=== PATIENT | female | born 1980 | race Caucasian/White ===

== ENCOUNTER 2016-08-02 12:32 | Outpatient (CLI) | payer OTHER | END 2016-08-02 12:33 | disposition home or self-care (01) | DX: E04.1 Nontoxic single thyroid nodule (principal) ==

== ENCOUNTER 2016-08-29 08:15 | Outpatient (CLI) | payer OTHER ==
[2016-08-29] MEDS ORDERED: BUFFERED LIDOCAINE 10 ML SYRINGE IU ONE (10:30)
== END 2016-08-29 08:16 | disposition home or self-care (01) ==
DX: E04.1 Nontoxic single thyroid nodule (principal)

== ENCOUNTER 2017-11-09 07:50 | Outpatient (CLI) | payer OTHER ==
--- NOTE | 2017-11-09 08:25 | XRAY Preliminary Report ---
Exam: XR FOOT 3 VIEW LT IMPRESSION: Normal foot radiography. [facility] SITE ID: [id number]
--- NOTE | 2017-11-09 08:26 | XRAY Report ---
EXAM: LEFT FOOT RADIOGRAPHY EXAM DATE: 11/09/2017 08:14 AM. CLINICAL HISTORY: LEFT FOOT PAIN. COMPARISON: None. TECHNIQUE: 3 views. FINDINGS: Bones: Normal. No fractures or bone lesions. Joints: Normal. No subluxations. Soft Tissues: Normal. No soft tissue swelling. IMPRESSION: Normal foot radiography. [facility] Referring Provider Line: [phone] SITE ID: [id number]
== END 2017-11-09 07:51 | disposition home or self-care (01) ==
LOC: DI 07:50
PROVIDERS: ATTEND Specialist
DX: M79.672 Pain in left foot (principal)

== ENCOUNTER 2017-12-07 08:30 | Outpatient (CLI) | payer OTHER ==
[2017-12-07 08:48] LABS: BASOPHILS # (AUTO) 0.1 10^3/uL (0.0-0.1); BASOPHILS % (AUTO) 0.8 %; EOSINOPHILS # (AUTO) 0.8 10^3/uL (0.0-0.7); EOSINOPHILS % (AUTO) 10.1 %; HGB - HEMOGLOBIN 13.8 g/dL (12.0-16.0); LYMPHOCYTES # (AUTO) 2.8 10^3/uL (1.5-3.5); LYMPHOCYTES % (AUTO) 36.1 %; MEAN CORPUSCULAR HEMOGLOBIN 29.4 pg (27.0-31.0); MEAN CORPUSCULAR HGB CONC 33.9 g/dL (32.0-36.0); MEAN CORPUSCULAR VOLUME 86.8 fL (81.0-99.0); MEAN PLATELET VOLUME 8.1 fL (7.9-10.8); MONOCYTES # (AUTO) 0.4 10^3/uL (0.0-1.0); MONOCYTES % (AUTO) 5.6 %; NEUTROPHILS # (AUTO) 3.7 10^3/uL (1.5-6.6); NEUTROPHILS % (AUTO) 47.4 %; PLT - PLATELET COUNT 260 10^3/uL (130-450); RED BLOOD COUNT 4.68 10^6/uL (4.20-5.40); RED CELL DISTRIBUTION WIDTH 13.6 % (12.0-15.0); WHITE BLOOD COUNT 7.8 x10^3/uL (4.8-10.8)
[2017-12-07 09:06] LABS: ALBUMIN 3.4 g/dL (3.2-5.5); ALBUMIN/GLOBULIN RATIO 0.9 (1.0-2.2); ALKALINE PHOSPHATASE 69 IU/L (42-121); ALT ALANINE AMINOTRANSFERASE 32 IU/L (10-60); AST ASPARTATE AMINOTRANSFERASE 28 IU/L (10-42); BILIRUBIN,TOTAL 0.9 mg/dL (0.2-1.0); BUN - BLOOD UREA NITROGEN 10 mg/dL (6-20); CALCIUM 8.5 mg/dL (8.5-10.3); CARBON DIOXIDE - CO2 25 mmol/L (21-32); CHLORIDE 106 mmol/L (101-111); CREATININE 0.7 mg/dL (0.4-1.0); GFR - MDRD 93 (>89); GLUCOSE 98 mg/dL (70-100); SODIUM 137 mmol/L (135-145); TOTAL PROTEIN 7.1 g/dL (6.7-8.2)
[2017-12-07 09:08] LABS: CRP - C-REACTIVE PROTEIN < 1.0 mg/dL (0-1.0)
[2017-12-07 09:22] LABS: RHEUMATOID FACTOR NEGATIVE (Negative)
[2017-12-10 13:21] LABS: ANA SCREEN NEGATIVE (NEGATIVE)
== END 2017-12-07 08:31 | disposition home or self-care (01) ==
LOC: LAB 08:30
PROVIDERS: ATTEND Specialist
DX: L94.9 Localized connective tissue disorder, unspecified (principal)
CPT/HCPCS: 36415; 80053; 85025; 85651; 86038; 86140; 86430

== ENCOUNTER 2018-07-23 20:36 | Outpatient (CLI) | payer OTHER ==
--- NOTE | 2018-07-24 00:13 | Ultrasound Report ---
Reason: CERVICALGIA Procedure Date: 07/23/2018 Accession Number: [id number] / [id number] Procedure: US - Head or Neck Soft Tissue CPT Code: FULL RESULT: EXAM: THYROID ULTRASOUND EXAM DATE: 07/23/2018 09:36 PM. CLINICAL HISTORY: CERVICALGIA. COMPARISON: HEAD OR NECK SOFT TISSUE 08/02/2016 12:39 PM. TECHNIQUE: Real time sonographic imaging of the thyroid was performed by the marketing production manager. Multiple packaging sales representative static images were saved for review. FINDINGS: THYROID GLAND: Right Lobe: Surgically absent. Left Lobe: 5.5 x 1.6 x 1.4 cm, volume 6 cc. Normal background echotexture. Left Lobe Nodules: 1.3 x 1.2 x 0.6 cm circumscribed heterogeneous nodule with mild internal vascularity in the lower pole posteriorly. Similar appearing 0.6 x 0.4 x 0.6 cm nodule in the midpole posteriorly. Isthmus: Surgically absent. LYMPH NODES: No adenopathy demonstrated in the central or lateral compartment. OTHER: None. IMPRESSION: 2 small left thyroid nodules, below size criteria for FNA based on guidelines. Postoperative changes of right thyroidectomy. Management recommendations are based on 2015 [place] [employer] Management Guidelines for Adult Patients with Thyroid Nodules and Differentiated Thyroid Cancer. [facility]
== END 2018-07-23 20:37 | disposition home or self-care (01) ==
LOC: DI 20:36
PROVIDERS: ATTEND Student in an Organized Health Care Education/Training Program
DX: M54.2 Cervicalgia (principal); E04.2 Nontoxic multinodular goiter
CPT/HCPCS: 76536

== ENCOUNTER 2018-08-25 07:31 | Emergency (ER) | payer OTHER ==
--- NOTE | 2018-08-25 08:02 | ED Physician Documentation ---
History of Present Illness - Stated complaint Stated Complaint: SORE THROAT/COUGH/EAR PX - Chief complaint Chief Complaint: General - History obtained from History obtained from: Patient - History of Present Illness Pain level max: 2 - Additonal information Additional information: Patient is a previously healthy 37-year-old female presenting with her daughter, who has similar complaints of general viral and URI symptoms for the past 1 week. Patient denies fever, chills, rash, abdominal pain, vomiting, urinary changes, but admits to diarrhea. Patient also complains of nasal congestion, rhinorrhea, but no sinus pain or ear pain.Patient reports mildly productive cough, but no particular shortness of breath. Patient notes no particular improving or worsening factors to her symptoms. Review of Systems Constitutional: denies: Fever, Chills Ears: denies: Reviewed and negative Nose: reports: Rhinorrhea / runny nose, Congestion Throat: reports: Sore throat Respiratory: reports: Cough GI: reports: Diarrhea. 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 Psych: Depression, Bipolar disorder, ADD/ADHD - Past Surgical History Past Surgical History: Yes HEENT: Myringotomy (tubes), Tonsil/Adenoidectomy Derm: Other - Present Medications Home Medications: Ambulatory Orders Medication Instructions Recorded Confirmed Hydrocodone/Acetaminophen 1 - 2 each PO Q6H PRN #14 tablet 03/24/15 [Hydrocodon-Acetaminophen 5-325] RX: Naproxen [Naprosyn] 500 mg PO BID 03/24/15 03/24/15 - Allergies Allergies/Adverse Reactions: Allergies Allergy/AdvReac Type Severity Reaction Status Date / Time amoxicillin AdvReac Intermediate diarrhea Verified 09/21/14 21:23 - Social History Does the pt smoke?: No Smoking Status: Never smoker Does the pt drink ETOH?: Yes Does the pt have substance abuse?: No - Immunizations Immunizations are current?: Yes - POLST Patient has POLST: No PD ED PE NORMAL - General General: Alert and oriented X 3, No acute distress, Well developed/nourished - HEENT HEENT: Atraumatic, EOMI, Ears normal (TMs nonbulging, not erythematous bilaterally), Moist mucous membranes, Pharynx benign - Neck Neck: Supple, no meningeal sign - Cardiac Cardiac: RRR, No murmur - Respiratory Respiratory: No respiratory distress, Clear bilaterally - Abdomen Abdomen: Soft, Non tender, Non distended - Derm Derm: Normal color, Warm and dry, No rash - Extremities Extremities: No deformity - Neuro Neuro: Alert and oriented X 3, No motor deficit, No sensory deficit - Psych Psych: Normal mood, Normal affect Results - Vitals Vitals: Vital Signs - 24 hr 08/25/18 07:40 Temperature 37.2 C Heart Rate 80 Respiratory 16 Rate Blood Pressure 108/61 O2 Saturation 99 Oxygen O2 Source Room air PD MEDICAL DECISION MAKING - ED course Complexity details: considered differential, d/w patient ED course: Patient presenting with likely viral syndrome, particular URI given duration of complaints, and physical exam findings. Vital signs within normal limits on arrival.Do not find evidence of otitis media, otitis externa, mastoiditis, pharyngitis, tonsillitis, peritonsillar abscess or have concerns for sinusitis or pneumonia based on exam. Also have low suspicion for other systemic illness including intra-abdominal pathology. Feel the patient is likely experiencing viral illness or even influenza, but given duration of symptoms, do not feel patient needs influenza testing as she is already out of the treatment window for Tamiflu. Explained this to the patient and she agrees. Also discussed other supportive cares for viral issues, return precautions, appropriate follow- up. Work note provided. Patient voiced understanding and is comfortable with discharge plan. Departure - Departure Disposition: 01 Home, Self Care Clinical Impression: Viral URI with cough Condition: Good Instructions: ED Viral Syndrome Follow-Up: RATNA BARBER [Primary Care Provider] - Within 3 Days Comments: Recommend supportive cares such as hydration, rest, ibuprofen/Tylenol and other [id number] medications like nasal decongestants to help relieve symptoms of likely viral syndrome. Follow-up with primary care physician in next 2-3 days and return to ED sooner if expands worsening symptoms or other concerns. Forms: Activity restrictions Discharge Date/Time: 08/25/18 08:11
[2018-08-25 08:06] VITALS: BP 108/61
== END 2018-08-25 08:11 | disposition home or self-care (01) ==
LOC: ED 07:31
DX: J06.9 Acute upper respiratory infection, unspecified (principal)
CPT/HCPCS: 99282; 99283

== ENCOUNTER 2018-11-05 07:07 | Outpatient (CLI) | payer OTHER ==
--- NOTE | 2018-11-05 17:25 | XRAY Report ---
Reason: R HIP PAIN Procedure Date: 11/05/2018 Accession Number: [id number] / [id number] Procedure: XR - Hip w/Pelvis 2-3V RT CPT Code: FULL RESULT: EXAM: RIGHT HIP RADIOGRAPHY EXAM DATE: 11/05/2018 07:18 AM. CLINICAL HISTORY: R HIP PAIN. COMPARISON: CT ABDOMEN AND PELVIS WITHOUT CONTRAST 02/02/2015 8:20 PM. TECHNIQUE: 2 views. FINDINGS: Bones: Normal. No fractures or bone lesion. Joints: Normal. No dislocation. The hip joint space is preserved. Soft Tissues: Normal. No soft tissue swelling. IMPRESSION: Normal hip radiography. [facility]
== END 2018-11-05 07:08 | disposition home or self-care (01) ==
LOC: DI 07:07
PROVIDERS: ATTEND Physician Assistant Medical
DX: M25.551 Pain in right hip (principal)

== ENCOUNTER 2019-01-28 22:44 | Emergency (ER) | payer OTHER ==
[2019-01-28 23:01] LABS: BASOPHILS # (AUTO) 0.1 10^3/uL (0.0-0.1); BASOPHILS % (AUTO) 0.4 %; EOSINOPHILS # (AUTO) 0.1 10^3/uL (0.0-0.7); EOSINOPHILS % (AUTO) 0.6 %; HGB - HEMOGLOBIN 13.8 g/dL (12.0-16.0); LYMPHOCYTES # (AUTO) 2.8 10^3/uL (1.5-3.5); LYMPHOCYTES % (AUTO) 17.8 %; MEAN CORPUSCULAR HEMOGLOBIN 29.4 pg (27.0-31.0); MEAN CORPUSCULAR HGB CONC 33.3 g/dL (32.0-36.0); MEAN CORPUSCULAR VOLUME 88.3 fL (81.0-99.0); MEAN PLATELET VOLUME 10.3 fL (7.9-10.8); MONOCYTES % (AUTO) 6.5 %; NEUTROPHILS # (AUTO) 11.7 10^3/uL (1.5-6.6); NEUTROPHILS % (AUTO) 74.2 %; PLT - PLATELET COUNT 311 10^3/uL (130-450); RED BLOOD COUNT 4.69 10^6/uL (4.20-5.40); RED CELL DISTRIBUTION WIDTH 13.4 % (12.0-15.0); WHITE BLOOD COUNT 15.7 x10^3/uL (4.8-10.8)
[2019-01-28 23:15] LABS: ALBUMIN 4.1 g/dL (3.2-5.5); ALBUMIN/GLOBULIN RATIO 1.2 (1.0-2.2); BILIRUBIN,TOTAL 1.2 mg/dL (0.2-1.0); CALCIUM 8.9 mg/dL (8.5-10.3); CREATININE 0.7 mg/dL (0.4-1.0); TOTAL PROTEIN 7.6 g/dL (6.7-8.2)
[2019-01-29] MEDS ORDERED: IOVERSOL 320 100 ML VIAL IVP ONE ×2 (00:14→06:30)
[2019-01-29] MEDS ORDERED: MORPHINE 2 MG/ML CARPUJECT IVP STA (00:20)
[2019-01-29] MEDS ORDERED: ONDANSETRON 4 MG/2 ML VIAL IVP STA (00:20)
--- NOTE | 2019-01-29 00:23 | ED Physician Documentation ---
History of Present Illness - Stated complaint Stated Complaint: ABD PX/N/V - Chief complaint Chief Complaint: Abd Pain - History obtained from History obtained from: Patient, Family - History of Present Illness Timing: Today, How many hours ago (2) Pain level max: 8 Pain level now: 7 - Additonal information Additional information: 38-year-old female states that she has a known history of gallstones. She states that she ate [employer] today. This was followed by epigastric and right upper quadrant pain. Has had nausea and vomiting. No fevers. No chills. Worse with movement and better with rest. Patient is not , breast- feeding or trying to become . 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 - Past Surgical History Past Surgical History: Yes HEENT: Myringotomy (tubes), Tonsil/Adenoidectomy Derm: Other - Present Medications Home Medications: Ambulatory Orders Medication Instructions Recorded Confirmed Hydrocodone/Acetaminophen 1 - 2 each PO Q6H PRN #14 tablet 03/24/15 [Hydrocodon-Acetaminophen 5-325] Naproxen [Naprosyn] 500 mg PO BID 03/24/15 03/24/15 Hydrocodone/Acetaminophen 1 - 2 each PO Q6H PRN #14 tablet 01/29/19 [Hydrocodon-Acetaminophen 5-325] Ibuprofen [Motrin] 800 mg PO Q8H PRN #30 tablet 01/29/19 Ondansetron Odt [Zofran] 4 mg TL Q6H PRN #10 tablet 01/29/19 - Allergies Allergies/Adverse Reactions: Allergies Allergy/AdvReac Type Severity Reaction Status Date / Time amoxicillin AdvReac Intermediate diarrhea Verified 01/28/19 22:50 - Social History Does the pt smoke?: No Smoking Status: Never smoker Does the pt drink ETOH?: Yes Does the pt have substance abuse?: No - Immunizations Immunizations are current?: Yes - POLST Patient has POLST: No PD ED PE NORMAL - Vitals Vital signs reviewed: Yes - General General: Alert and oriented X 3, No acute distress - HEENT HEENT: Moist mucous membranes - Neck Neck: Supple, no meningeal sign - Cardiac Cardiac: RRR, Strong equal pulses - Respiratory Respiratory: No respiratory distress, Clear bilaterally - Abdomen Abdomen: Soft, Other (Tender palpation right lower quadrant at McBurney's point. Also tender to palpation right upper quadrant. Positive Del Angel sign.) - Back Back: No CVA TTP - Derm Derm: Warm and dry - Neuro Neuro: Alert and oriented X 3 - Psych Psych: Normal mood, Normal affect Results - Vitals Vitals: Vital Signs - 24 hr 01/28/19 01/29/19 01/29/19 22:48 01:53 02:20 Temperature 36.0 C L 36.6 C Heart Rate 95 68 64 Respiratory 17 18 20 Rate Blood Pressure 115/72 97/66 108/50 L O2 Saturation 95 98 99 01/29/19 03:20 Temperature 36.6 C Heart Rate 85 Respiratory 18 Rate Blood Pressure 95/55 L O2 Saturation 99 Oxygen O2 Source Room air - Labs Labs: Laboratory Tests 01/28/19 01/28/19 01/29/19 22:57 22:57 02:40 WBC 15.7 H RBC 4.69 Hgb 13.8 Hct 41.4 MCV 88.3 MCH 29.4 MCHC 33.3 RDW 13.4 Plt Count 311 MPV 10.3 Neut # (Auto) 11.7 H Lymph # (Auto) 2.8 [place] # (Auto) 1.0 Eos # (Auto) 0.1 Baso # (Auto) 0.1 Absolute Nucleated RBC 0.00 Nucleated RBC % 0.0 Sodium 140 Potassium 3.4 L Chloride 102 Carbon Dioxide 26 Anion Gap 12.0 BUN 11 Creatinine 0.7 Estimated GFR (MDRD) 93 Glucose 118 H Calcium 8.9 Total Bilirubin 1.2 H AST 21 ALT 19 Alkaline Phosphatase 66 Total Protein 7.6 Albumin 4.1 Globulin 3.5 Albumin/Globulin Ratio 1.2 Lipase 25 Urine Color YELLOW Urine Clarity CLEAR Urine pH 7.0 Ur Specific [place] <=1.005 Urine Protein NEGATIVE Urine Glucose (UA) NEGATIVE Urine Ketones NEGATIVE Urine Occult Blood TRACE-INTA Urine Nitrite NEGATIVE Urine Bilirubin NEGATIVE Urine Urobilinogen 0.2 (NORMAL) Ur Leukocyte Esterase NEGATIVE Ur Microscopic Review NOT INDICATED Urine Culture Comments NOT INDICATED Urine HCG, Qual NEGATIVE - Rads (name of study) RUQ US Radiology: Prelim report reviewed, EMP read contemporaneously, See rad report (Cholelithiasis with no definite cholecystitis. No biliary dilatation seen. ) CT abd/pelvis Radiology: Prelim report reviewed, EMP read contemporaneously, See rad report (1. No acute inflammatory or obstructive process seen in the abdomen or pelvis. 2. Cholelithiasis. ) PD MEDICAL DECISION MAKING - ED course Complexity details: reviewed results, re-evaluated patient, considered different ial, d/w patient, d/w family ED course: Patient with abdominal pain of unclear etiology. Abdominal pain well controlled. Normal appendix. No cholecystitis. Nontender in the right upper quadrant on serial exam. No peritoneal signs. Will trial on pain medication and see how she progresses. She will return if she worsens. Patient counseled regarding signs and symptoms for which I believe and urgent re-evaluation would be necessary. Patient with good understanding of and agreement to plan and is comfortable going home at this time This document was made in part using voice recognition software. While efforts are made to proofread this document, sound alike and grammatical errors may occur. Departure - Departure Disposition: 01 Home, Self Care Clinical Impression: Abdominal pain Qualifiers: Abdominal location: unspecified location Qualified Code(s): R10.9 - Unspecified abdominal pain Condition: Good Instructions: ED Abdominal Pain Unkn Cause Follow-Up: Rosa Coronado PA-C [Primary Care Provider] - Within 3 Days Prescriptions: Hydrocodone/Acetaminophen [Hydrocodon-Acetaminophen 5-325] 1 - 2 each PO Q6H PRN #14 tablet PRN Reason: pain Ibuprofen [Motrin] 800 mg PO Q8H PRN #30 tablet PRN Reason: PAIN &/OR FEVER Ondansetron Odt [Zofran] 4 mg TL Q6H PRN #10 tablet PRN Reason: Nausea / Vomiting Comments: The cause of your symptoms is unclear. Your gallbladder is not infected. You do have gallstones. Your appendix appears normal. You may have passed a kidney stone. Use the medications as prescribed. Return if you worsen, especially for uncontrolled pain or fevers. Do not drink alcohol or drive while on narcotic pain medicine. Note that many narcotic pain relievers also contain tylenol/acetaminophen. Please ensure that your total dose of acetaminophen from all sources does not exceed 3 grams (3000mg) per day. You may constipated on this medication, take a stool softener such as "Colace" twice a day while you are on it. Also recommend a [id number]-hvk-zxkjgtu laxative such as senna or MiraLAX any day that you do not have a bowel movement. If you received narcotic pain medication in the emergency department, do not drive or operate machinery for the next 24 hours. Discharge Date/Time: 01/29/19 03:22
[2019-01-29] MEDS ORDERED: SODIUM CHLORIDE 0.9% 1,000 ML IV ONE (00:32)
--- NOTE | 2019-01-29 01:29 | Ultrasound Report ---
Reason: RUQ abd pain Procedure Date: 01/29/2019 Accession Number: [id number] / [id number] Procedure: US - Abdomen Limited CPT Code: FULL RESULT: EXAM: ABDOMEN ULTRASOUND LIMITED, RUQ EXAM DATE: 01/29/2019 01:11 AM. CLINICAL HISTORY: RUQ abdominal pain. COMPARISON: 11/02/2018. TECHNIQUE: Real-time scanning was performed with static images obtained. FINDINGS: Liver: No focal lesion identified. 18.7 cm. Main portal vein flow: Hepatopetal. Gallbladder: Multiple stones in the gallbladder. These appear to be mobile. Gallbladder wall thickness is normal. No focal tenderness over the gallbladder. The patient had received pain medication. Biliary System: CBD measures 3.3 mm. No intrahepatic or extrahepatic ductal dilatation. Other: Right kidney measures 9.9 cm. Renal pelvis is mildly prominent. No blake hydronephrosis. IMPRESSION: 1. Cholelithiasis with no definite cholecystitis. 2. No biliary dilatation seen. [facility]
--- NOTE | 2019-01-29 01:47 | CT Report ---
Reason: RUQ and RLQ abd pain Procedure Date: 01/29/2019 Accession Number: [id number] / [id number] Procedure: CT - Abdomen/Pelvis W CPT Code: FULL RESULT: EXAM: CT ABDOMEN AND PELVIS EXAM DATE: 01/29/2019 01:32 AM CLINICAL HISTORY: Right upper quadrant and right lower quadrant abdominal pain. COMPARISONS: CT ABDOMEN AND PELVIS WITHOUT CONTRAST 02/02/2015 8:20 PM, ABDOMEN LIMITED 01/29/2019 12:18 AM. TECHNIQUE: Routine helical CT imaging was performed through the abdomen and pelvis. IV contrast: Yes. Enteric contrast: No. Reconstructions: Coronal and sagittal. In accordance with CT protocol optimization, one or more of the following dose reduction techniques were utilized for this exam: automated exposure control, adjustment of mA and/or KV based on patient size, or use of iterative reconstructive technique. FINDINGS: Lung Bases: Unremarkable. Liver: Unremarkable. No suspicious masses. Gallbladder/Bile Ducts: Gallstones without cholecystitis or ductal dilatation. Spleen: Unremarkable. Pancreas: Unremarkable. Adrenal Glands: Unremarkable. Kidneys: Unremarkable. No suspicious masses or hydronephrosis. Peritoneal Cavity/Bowel: No bowel obstruction or inflammatory process seen. No free air or significant free fluid. No masses or adenopathy. The appendix is normal. No excessive stool burden. Pelvic Organs: Bladder, uterus, and adnexa appear unremarkable. Vasculature: No aneurysms or other significant abnormality. Bones: No significant abnormality. Other: None. IMPRESSION: 1. No acute inflammatory or obstructive process seen in the abdomen or pelvis. 2. Cholelithiasis. [facility]
[2019-01-29] MEDS ORDERED: HYDROcod/ACETAM 5/325 MG TABLET PO STA (01:55)
[2019-01-29] MEDS ORDERED: KETOROLAC 30 MG/ML VIAL IVP STA (01:55)
[2019-01-29 02:45] LABS: BILIRUBIN,URINE NEGATIVE (NEGATIVE); GLUCOSE, URINE (UA) NEGATIVE (NEGATIVE); KETONES,URINE (UA) NEGATIVE (NEGATIVE); LEUKOCYTE ESTERASE, URINE NEGATIVE (NEGATIVE); NITRITE,URINE NEGATIVE (NEGATIVE); OCCULT BLOOD,URINE TRACE-INTA (NEGATIVE); PROTEIN,URINE NEGATIVE (NEGATIVE); UROBILINOGEN,URINE 0.2 (NORMAL) E.U./dL (NORMAL)
[2019-01-29 02:47] LABS: CLARITY,URINE CLEAR (CLEAR); HCG UR QUAL NEGATIVE
[2019-01-29 03:21] VITALS: BP 95/55
== END 2019-01-29 03:22 | disposition home or self-care (01) ==
LOC: ED 22:44
DX: R10.11 Right upper quadrant pain (principal); R10.31 Right lower quadrant pain; R11.2 Nausea with vomiting, unspecified; K80.20 Calculus of gallbladder without cholecystitis without obstruction
CPT/HCPCS: 36415; 74177; 76705; 80053; 81003; 81025; 83690; 85025; 96361; 96374; 96375; 99284; A9270; Q9967; 81001; 87086

== ENCOUNTER 2019-04-02 14:15 | Emergency (ER) | payer MEDICAID, OTHER ==
[2019-04-02] MEDS ORDERED: KETOROLAC 60 MG/2 ML VIAL IM STA (14:31)
--- NOTE | 2019-04-02 14:35 | ED Physician Documentation ---
PD HPI ABD PAIN - Stated complaint Stated Complaint: ABD PX - Chief complaint Chief Complaint: Abd Pain - History obtained from History obtained from: Patient - History of Present Illness Timing - onset: Other (She has known gallstones. She actually had an appointment to have a cholecystectomy 6 days ago but there was an insurance problem and she was on leave so now she lost her insurance but is back on state insurance. She has right upper quadrant pain radiating to the back starting about an hour ago after eating a whopper. She is nauseous but has not vomited. 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 : None HEENT: None Psych: Depression, Bipolar disorder, ADD/ADHD Musculoskeletal: None Derm: None - Past Surgical History Past Surgical History: Yes HEENT: Myringotomy (tubes), Tonsil/Adenoidectomy Derm: Other - Present Medications Home Medications: Ambulatory Orders Medication Instructions Recorded Confirmed Hydrocodone/Acetaminophen 1 - 2 each PO Q6H PRN #14 tablet 03/24/15 [Hydrocodon-Acetaminophen 5-325] Naproxen [Naprosyn] 500 mg PO BID 03/24/15 03/24/15 Hydrocodone/Acetaminophen 1 - 2 each PO Q6H PRN #14 tablet 01/29/19 [Hydrocodon-Acetaminophen 5-325] Ibuprofen [Motrin] 800 mg PO Q8H PRN #30 tablet 01/29/19 Ondansetron Odt [Zofran] 4 mg TL Q6H PRN #10 tablet 01/29/19 Oxycodone HCl/Acetaminophen 1 - 2 each PO Q6H PRN #14 tablet 04/02/19 [Percocet 5-325 mg Tablet] - Allergies Allergies/Adverse Reactions: Allergies Allergy/AdvReac Type Severity Reaction Status Date / Time amoxicillin AdvReac Intermediate diarrhea Verified 04/02/19 14:22 - Social History Does the pt smoke?: No Smoking Status: Never smoker Does the pt drink ETOH?: Yes Does the pt have substance abuse?: No - Immunizations Immunizations are current?: Yes - POLST Patient has POLST: No PD ED PE NORMAL - Vitals Vital signs reviewed: Yes - General General: Alert and oriented X 3, Other (appears uncomfortable) - Abdomen Abdomen: Other (Tender in the right upper quadrant with negative Del Angel sign. No diffuse tenderness.) - Neuro Neuro: Alert and oriented X 3, Normal speech Results - Vitals Vitals: Vital Signs - 24 hr 04/02/19 04/02/19 14:18 14:30 Temperature 36.0 C L Heart Rate 74 66 Respiratory 22 16 Rate Blood Pressure 109/42 L 94/48 L O2 Saturation 100 98 Oxygen O2 Source Room air - Labs Labs: Laboratory Tests 04/02/19 04/02/19 14:41 14:41 WBC 10.6 RBC 4.72 Hgb 13.8 Hct 42.1 MCV 89.2 MCH 29.2 MCHC 32.8 RDW 13.2 Plt Count 270 MPV 10.7 Neut # (Auto) 6.9 H Lymph # (Auto) 2.9 [place] # (Auto) 0.6 Eos # (Auto) 0.2 Baso # (Auto) 0.0 Absolute Nucleated RBC 0.00 Nucleated RBC % 0.0 Sodium 141 Potassium 4.2 Chloride 107 Carbon Dioxide 27 Anion Gap 7.0 BUN 14 Creatinine 0.7 Estimated GFR (MDRD) 93 Glucose 141 H Calcium 8.7 Total Bilirubin 1.3 H AST 34 ALT 21 Alkaline Phosphatase 64 Total Protein 7.2 Albumin 3.9 Globulin 3.3 Albumin/Globulin Ratio 1.2 Lipase 30 PD MEDICAL DECISION MAKING - ED course ED course: This is a 38-year-old woman with known gallstones who presents with an attack of biliary colic for 1 hour. Note that she did not want any narcotics here as she was driving and she could not find a ride so she was administered Toradol pending the labs. She did have some relief with the Toradol but not great. I offered narcotic analgesia but again she could not find a ride and preferred to just go to the pharmacy and pick something up. Her labs are stable. Departure - Departure Disposition: 01 Home, Self Care Clinical Impression: Biliary colic Condition: Good Record reviewed to determine appropriate education?: Yes Instructions: ED Abdominal Pain Gallstone Poss Follow-Up: Rubens Jenkins MD [Provider Admit Priv/Credential] - Prescriptions: Oxycodone HCl/Acetaminophen [Percocet 5-325 mg Tablet] 1 - 2 each PO Q6H PRN #14 tablet PRN Reason: pain Comments: Return if not better in 6 to 8 hours, anytime if worse or if running a fever. Do not drink or drive while taking prescription pain medication. Follow-up with surgeon as soon as possible.
[2019-04-02 14:52] LABS: BASOPHILS % (AUTO) 0.4 %; EOSINOPHILS # (AUTO) 0.2 10^3/uL (0.0-0.7); HGB - HEMOGLOBIN 13.8 g/dL (12.0-16.0); LYMPHOCYTES # (AUTO) 2.9 10^3/uL (1.5-3.5); LYMPHOCYTES % (AUTO) 27.2 %; MEAN CORPUSCULAR HEMOGLOBIN 29.2 pg (27.0-31.0); MEAN CORPUSCULAR HGB CONC 32.8 g/dL (32.0-36.0); MEAN CORPUSCULAR VOLUME 89.2 fL (81.0-99.0); MEAN PLATELET VOLUME 10.7 fL (7.9-10.8); MONOCYTES # (AUTO) 0.6 10^3/uL (0.0-1.0); MONOCYTES % (AUTO) 5.5 %; NEUTROPHILS # (AUTO) 6.9 10^3/uL (1.5-6.6); NEUTROPHILS % (AUTO) 64.5 %; PLT - PLATELET COUNT 270 10^3/uL (130-450); RED BLOOD COUNT 4.72 10^6/uL (4.20-5.40); RED CELL DISTRIBUTION WIDTH 13.2 % (12.0-15.0); WHITE BLOOD COUNT 10.6 x10^3/uL (4.8-10.8)
[2019-04-02 14:59] LABS: ALBUMIN 3.9 g/dL (3.2-5.5); ALBUMIN/GLOBULIN RATIO 1.2 (1.0-2.2); BILIRUBIN,TOTAL 1.3 mg/dL (0.2-1.0); CALCIUM 8.7 mg/dL (8.5-10.3); CREATININE 0.7 mg/dL (0.4-1.0); TOTAL PROTEIN 7.2 g/dL (6.7-8.2)
[2019-04-02 15:25] VITALS: BP 97/62
== END 2019-04-02 15:25 | disposition home or self-care (01) ==
LOC: ED 14:15
DX: K80.20 Calculus of gallbladder without cholecystitis without obstruction (principal)
CPT/HCPCS: 36415; 80053; 83690; 85025; 96372; 99283

== ENCOUNTER 2019-05-26 19:04 | Emergency (ER) | payer MEDICAID ==
[2019-05-26 19:38] LABS: BASOPHILS # (AUTO) 0.1 10^3/uL (0.0-0.1); BASOPHILS % (AUTO) 0.5 %; EOSINOPHILS # (AUTO) 0.2 10^3/uL (0.0-0.7); EOSINOPHILS % (AUTO) 2.3 %; HGB - HEMOGLOBIN 13.3 g/dL (12.0-16.0); LYMPHOCYTES # (AUTO) 3.2 10^3/uL (1.5-3.5); LYMPHOCYTES % (AUTO) 31.5 %; MEAN CORPUSCULAR HEMOGLOBIN 28.9 pg (27.0-31.0); MEAN CORPUSCULAR HGB CONC 32.4 g/dL (32.0-36.0); MEAN CORPUSCULAR VOLUME 89.2 fL (81.0-99.0); MEAN PLATELET VOLUME 10.5 fL (7.9-10.8); MONOCYTES # (AUTO) 0.6 10^3/uL (0.0-1.0); MONOCYTES % (AUTO) 6.4 %; PLT - PLATELET COUNT 292 10^3/uL (130-450); RED BLOOD COUNT 4.61 10^6/uL (4.20-5.40); RED CELL DISTRIBUTION WIDTH 13.8 % (12.0-15.0); WHITE BLOOD COUNT 10.1 x10^3/uL (4.8-10.8)
[2019-05-26 19:53] LABS: ALBUMIN 4.1 g/dL (3.2-5.5); ALBUMIN/GLOBULIN RATIO 1.1 (1.0-2.2); BILIRUBIN,TOTAL 0.9 mg/dL (0.2-1.0); CALCIUM 8.8 mg/dL (8.5-10.3); CREATININE 0.9 mg/dL (0.4-1.0); TOTAL PROTEIN 7.8 g/dL (6.7-8.2)
[2019-05-26 20:12] LABS: BILIRUBIN,URINE NEGATIVE (NEGATIVE); GLUCOSE, URINE (UA) NEGATIVE (NEGATIVE); KETONES,URINE (UA) TRACE mg/dL (NEGATIVE); LEUKOCYTE ESTERASE, URINE NEGATIVE (NEGATIVE); NITRITE,URINE NEGATIVE (NEGATIVE); OCCULT BLOOD,URINE LARGE (NEGATIVE); PROTEIN,URINE NEGATIVE (NEGATIVE); UROBILINOGEN,URINE 0.2 (NORMAL) E.U./dL (NORMAL)
[2019-05-26 20:15] LABS: CLARITY,URINE CLEAR (CLEAR)
[2019-05-26 20:20] LABS: BACTERIA,URINE Few /HPF (None Seen); SQUAMOUS EPITHELIAL CELL,UR MOD Squamous (<= Few)
--- NOTE | 2019-05-26 20:59 | ED Physician Documentation ---
PD HPI FEMALE - Stated complaint Stated Complaint: SPOTTING - Chief complaint Chief Complaint: General - History obtained from History obtained from: Patient, Friend - History of Present Illness Timing - onset: Today Timing - duration: Hours Timing - details: Abrupt onset, Still present Associated symptoms: Pelvic pain, Vaginal bleeding Contributing factors: Sexually active. 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 She has had a prior miscarriage. She is due for her menses on the . She last had unprotected intercourse on the . Review of Systems Constitutional: denies: Fever Respiratory: denies: Cough GI: reports: Abdominal Pain. 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 : None HEENT: None Psych: Depression, Bipolar disorder, ADD/ADHD Musculoskeletal: None Derm: None Other Past Medical History: gall stones - Past Surgical History Past Surgical History: Yes HEENT: Myringotomy (tubes), Tonsil/Adenoidectomy Derm: Other - Present Medications Home Medications: Ambulatory Orders Medication Instructions Recorded Confirmed Hydrocodone/Acetaminophen 1 - 2 each PO Q6H PRN #14 tablet 03/24/15 [Hydrocodon-Acetaminophen 5-325] Naproxen [Naprosyn] 500 mg PO BID 03/24/15 03/24/15 Hydrocodone/Acetaminophen 1 - 2 each PO Q6H PRN #14 tablet 01/29/19 [Hydrocodon-Acetaminophen 5-325] Ibuprofen [Motrin] 800 mg PO Q8H PRN #30 tablet 01/29/19 Ondansetron Odt [Zofran] 4 mg TL Q6H PRN #10 tablet 01/29/19 Oxycodone HCl/Acetaminophen 1 - 2 each PO Q6H PRN #14 tablet 04/02/19 [Percocet 5-325 mg Tablet] - Allergies Allergies/Adverse Reactions: Allergies Allergy/AdvReac Type Severity Reaction Status Date / Time amoxicillin AdvReac Intermediate diarrhea Verified 05/26/19 19:08 - Social History Does the pt smoke?: No Smoking Status: Never smoker Does the pt drink ETOH?: Yes Does the pt have substance abuse?: Yes Substance Use and Type: Marijuana - Immunizations Immunizations are current?: Yes - POLST Patient has POLST: No PD ED PE NORMAL - General General: Alert and oriented X 3, No acute distress, Well developed/nourished - HEENT HEENT: Atraumatic, PERRL, EOMI - Cardiac Cardiac: RRR, No murmur - Respiratory Respiratory: No respiratory distress, Clear bilaterally - Abdomen Abdomen: Soft, Non tender - Back Back: No CVA TTP, No spinal TTP - Derm Derm: Normal color, Warm and dry, No rash - Extremities Extremities: No deformity, No edema - Neuro Neuro: Alert and oriented X 3, casey saw operator 2-12 intact, No motor deficit, No sensory deficit, Normal speech Eye Opening: Spontaneous Motor: Obeys Commands Verbal: Oriented GCS Score: 15 - Psych Psych: Normal mood, Normal affect Results - Vitals Vitals: Vital Signs - 24 hr 05/26/19 19:08 Temperature 36.5 C Heart Rate 97 Respiratory 16 Rate Blood Pressure 135/72 H O2 Saturation 98 Oxygen O2 Source Room air - Labs Labs: Laboratory Tests 05/26/19 05/26/19 05/26/19 19:16 19:32 19:32 WBC 10.1 RBC 4.61 Hgb 13.3 Hct 41.1 MCV 89.2 MCH 28.9 MCHC 32.4 RDW 13.8 Plt Count 292 MPV 10.5 Neut # (Auto) 6.0 Lymph # (Auto) 3.2 [place] # (Auto) 0.6 Eos # (Auto) 0.2 Baso # (Auto) 0.1 Absolute Nucleated RBC 0.00 Nucleated RBC % 0.0 Sodium 141 Potassium 3.8 Chloride 105 Carbon Dioxide 28 Anion Gap 8.0 BUN 12 Creatinine 0.9 Estimated GFR (MDRD) 69 L Glucose 96 Calcium 8.8 Total Bilirubin 0.9 AST 65 H ALT 162 H Alkaline Phosphatase 123 H Total Protein 7.8 Albumin 4.1 Globulin 3.7 Albumin/Globulin Ratio 1.1 Lipase 33 HCG, Quant Urine Color YELLOW Urine Clarity CLEAR Urine pH 6.0 Ur Specific [place] 1.020 Urine Protein NEGATIVE Urine Glucose (UA) NEGATIVE Urine Ketones TRACE Urine Occult Blood LARGE H Urine Nitrite NEGATIVE Urine Bilirubin NEGATIVE Urine Urobilinogen 0.2 (NORMAL) Ur Leukocyte Esterase NEGATIVE Urine RBC 6-10 H Urine WBC 0-3 Ur Squamous Epith Cells MOD Squamous H Urine Bacteria Few Ur Microscopic Review INDICATED Urine Culture Comments NOT INDICATED 05/26/19 19:32 WBC RBC Hgb Hct MCV MCH MCHC RDW Plt Count MPV Neut # (Auto) Lymph # (Auto) [place] # (Auto) Eos # (Auto) Baso # (Auto) Absolute Nucleated RBC Nucleated RBC % Sodium Potassium Chloride Carbon Dioxide Anion Gap BUN Creatinine Estimated GFR (MDRD) Glucose Calcium Total Bilirubin AST ALT Alkaline Phosphatase Total Protein Albumin Globulin Albumin/Globulin Ratio Lipase HCG, Quant < 0.60 Urine Color Urine Clarity Urine pH Ur Specific [place] Urine Protein Urine Glucose (UA) Urine Ketones Urine Occult Blood Urine Nitrite Urine Bilirubin Urine Urobilinogen Ur Leukocyte Esterase Urine RBC Urine WBC Ur Squamous Epith Cells Urine Bacteria Ur Microscopic Review Urine Culture Comments PD MEDICAL DECISION MAKING - ED course Complexity details: reviewed old records, reviewed results, re-evaluated patient, considered differential, d/w patient, d/w family ED course: 38-year-old female with vaginal spotting and cramping is not today. She is still concerned about the possibility of as she has had prior the negative test followed by a visit to her doctor with vomiting and a positive test. She is due for her menses on the we did discuss possibility of implantation spotting and I have asked the patient to repeat her test around the time of her menses whether she has a menses or not. In addition the patient has elevation in her liver function tests that are new. She reports that she was not able to get her gallbladder out for insurance reasons and she had an episode of pain last week. I have asked her to follow up with her primary to re-check the liver functions. Departure - Departure Disposition: 01 Home, Self Care Clinical Impression: Intermenstrual spotting, Elevated LFTs Condition: Stable Instructions: ED Bleed Irregular Vaginal, ALT Follow-Up: [facility] [Provider Group] Comments: Today your liver functions were elevated and these have not been elevated previously you will need to follow-up with your primary care doctor to recheck these liver enzymes within the next week.
[2019-05-26 21:17] VITALS: BP 122/105
== END 2019-05-26 21:17 | disposition home or self-care (01) ==
LOC: ED 19:04
DX: N92.3 Ovulation bleeding (principal); R10.2 Pelvic and perineal pain; R74.8 Abnormal levels of other serum enzymes; Z87.59 Personal history of other complications of pregnancy, childbirth and the puerperium
CPT/HCPCS: 36415; 80053; 81001; 81003; 83690; 84702; 85025; 87086; 99283

== ENCOUNTER 2019-06-18 08:00 | Outpatient (CLI) | payer MEDICAID | END 2019-06-18 23:59 | disposition home or self-care (01) | LOC: LAB.R 08:00 | PROVIDERS: ATTEND Obstetrics & Gynecology | DX: N39.0 Urinary tract infection, site not specified (principal) | CPT/HCPCS: 87086 ==

== ENCOUNTER 2019-06-18 14:10 | Outpatient (CLI) | payer MEDICAID ==
[2019-06-18 14:46] LABS: ALBUMIN 4.1 g/dL (3.2-5.5); ALBUMIN/GLOBULIN RATIO 1.2 (1.0-2.2); BILIRUBIN,TOTAL 1.2 mg/dL (0.2-1.0); CREATININE 0.6 mg/dL (0.4-1.0); TOTAL PROTEIN 7.5 g/dL (6.7-8.2)
== END 2019-06-18 14:11 | disposition home or self-care (01) ==
LOC: LAB 14:10
PROVIDERS: ATTEND Obstetrics & Gynecology
DX: N91.1 Secondary amenorrhea (principal); R94.5 Abnormal results of liver function studies
CPT/HCPCS: 36415; 80053; 84702

== ENCOUNTER 2019-06-18 19:47 | Emergency (ER) | payer MEDICAID ==
[2019-06-18 19:52] VITALS: BP 126/66
[2019-06-18 20:07] LABS: BILIRUBIN,URINE NEGATIVE (NEGATIVE); GLUCOSE, URINE (UA) NEGATIVE (NEGATIVE); KETONES,URINE (UA) NEGATIVE (NEGATIVE); LEUKOCYTE ESTERASE, URINE MODERATE (NEGATIVE); NITRITE,URINE NEGATIVE (NEGATIVE); OCCULT BLOOD,URINE TRACE-INTA (NEGATIVE); PROTEIN,URINE NEGATIVE (NEGATIVE); UROBILINOGEN,URINE 0.2 (NORMAL) E.U./dL (NORMAL)
[2019-06-18 20:08] LABS: CLARITY,URINE CLEAR (CLEAR)
[2019-06-18] MEDS ORDERED: PHENAZOPYRIDINE 100 MG TABLET PO STA (20:17)
[2019-06-18] MEDS ORDERED: NITROFURANTOIN MACRO 100 MG CAPSULE PO STA (20:17)
[2019-06-18 20:19] LABS: BACTERIA,URINE None Seen /HPF (None Seen); RBC,URINE 0-5 /HPF (0-5); SQUAMOUS EPITHELIAL CELL,UR FEW Squamous (<= Few)
--- NOTE | 2019-06-18 20:19 | ED Physician Documentation ---
PD HPI FEMALE - Stated complaint Stated Complaint: FEMALE - Chief complaint Chief Complaint: Abd Pain - History obtained from History obtained from: Patient (38-year-old woman, G3, P2 at 6 weeks gestation. She is had urinary frequency and urgency for last few days and dysuria tonight. No flank pain, fevers, pelvic pain, cramping or bleeding.) Review of Systems Constitutional: denies: Fever, Chills GI: denies: Abdominal Pain, Nausea, Vomiting : reports: Dysuria, Frequency. 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 : None HEENT: None Psych: Depression, Bipolar disorder, ADD/ADHD Musculoskeletal: None Derm: None - Past Surgical History Past Surgical History: Yes HEENT: Myringotomy (tubes), Tonsil/Adenoidectomy Derm: Other - Present Medications Home Medications: Ambulatory Orders Medication Instructions Recorded Confirmed Hydrocodone/Acetaminophen 1 - 2 each PO Q6H PRN #14 tablet 03/24/15 [Hydrocodon-Acetaminophen 5-325] Naproxen [Naprosyn] 500 mg PO BID 03/24/15 03/24/15 Hydrocodone/Acetaminophen 1 - 2 each PO Q6H PRN #14 tablet 01/29/19 [Hydrocodon-Acetaminophen 5-325] Ibuprofen [Motrin] 800 mg PO Q8H PRN #30 tablet 01/29/19 Ondansetron Odt [Zofran] 4 mg TL Q6H PRN #10 tablet 01/29/19 Oxycodone HCl/Acetaminophen 1 - 2 each PO Q6H PRN #14 tablet 04/02/19 [Percocet 5-325 mg Tablet] Nitrofurantoin Monohyd/M-Cryst 100 mg PO BID #10 capsule 06/18/19 [Macrobid 100 mg Capsule] Phenazopyridine HCl [Pyridium] 200 mg PO TID PRN #6 tablet 06/18/19 - Allergies Allergies/Adverse Reactions: Allergies Allergy/AdvReac Type Severity Reaction Status Date / Time amoxicillin AdvReac Intermediate diarrhea Verified 06/18/19 19:52 - Social History Does the pt smoke?: No Smoking Status: Never smoker Does the pt drink ETOH?: Yes Does the pt have substance abuse?: Yes - Immunizations Immunizations are current?: Yes - POLST Patient has POLST: No PD ED PE NORMAL - Vitals Vital signs reviewed: Yes - General General: Alert and oriented X 3, No acute distress - Abdomen Abdomen: Soft, Non tender - Back Back: No CVA TTP - Neuro Neuro: Alert and oriented X 3, Normal speech Results - Vitals Vitals: Vital Signs - 24 hr 06/18/19 19:49 Temperature 36.4 C L Heart Rate 73 Respiratory 16 Rate Blood Pressure 126/66 O2 Saturation 100 Oxygen O2 Source Room air - Labs Labs: Laboratory Tests 06/18/19 20:00 Urine Color YELLOW Urine Clarity CLEAR Urine pH 6.0 Ur Specific [place] 1.015 Urine Protein NEGATIVE Urine Glucose (UA) NEGATIVE Urine Ketones NEGATIVE Urine Occult Blood TRACE-INTA Urine Nitrite NEGATIVE Urine Bilirubin NEGATIVE Urine Urobilinogen 0.2 (NORMAL) Ur Leukocyte Esterase MODERATE H Ur Microscopic Review INDICATED Urine Culture Comments Not Reportable Departure - Departure Disposition: 01 Home, Self Care Clinical Impression: Cystitis Condition: Good Record reviewed to determine appropriate education?: Yes Instructions: ED UTI Cystitis Female Prescriptions: Nitrofurantoin Monohyd/M-Cryst [Macrobid 100 mg Capsule] 100 mg PO BID #10 capsule Phenazopyridine HCl [Pyridium] 200 mg PO TID PRN #6 tablet PRN Reason: dysuria Comments: We will culture your urine, the results should be done in 48-72 hours. If an antibiotic change is necessary we will call you. Return if worse in the meantime, especially if you develop increasing flank pain, fevers, or cannot keep down the medication.
== END 2019-06-18 20:35 | disposition home or self-care (01) ==
LOC: ED 19:47
DX: O23.11 Infections of bladder in pregnancy, first trimester (principal); O09.521 Supervision of elderly multigravida, first trimester; Z3A.01 Less than 8 weeks gestation of pregnancy; R74.0 Nonspecific elevation of levels of transaminase and lactic acid dehydrogenase [LDH]
CPT/HCPCS: 36415; 80053; 81001; 84702; 87086; 99283; A9270; 81003

== ENCOUNTER 2019-07-20 18:45 | Emergency (ER) | payer MEDICAID ==
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
[2019-07-20] MEDS ORDERED: CYCLOBENZAPRINE 10 MG TABLET PO STA (21:02)
[2019-07-20] MEDS ORDERED: oxyCODONE/ACET 5/325 Prepack 4 PO STA (21:02)
[2019-07-20 21:25] VITALS: BP 120/76
== END 2019-07-20 21:25 | disposition home or self-care (01) ==
LOC: ED 18:45
DX: M54.42 Lumbago with sciatica, left side (principal); F17.200 Nicotine dependence, unspecified, uncomplicated
CPT/HCPCS: 99282; 99283; A9270

== ENCOUNTER 2019-09-05 00:05 | Emergency (ER) | payer MEDICAID ==
--- NOTE | 2019-09-05 01:25 | ED Physician Documentation ---
PD HPI ABD PAIN - Stated complaint Stated Complaint: ABD/BK PX - Chief complaint Chief Complaint: Abd Pain - History obtained from History obtained from: Patient - History of Present Illness Timing - onset: Enter time (14:00) Timing - details: Abrupt onset Pain level now: 8 Quality: Pain Location: RUQ, Epigastric Radiation: Left flank, Right flank Improved by: Position (lying left lateral decubitus position) Worsened by: Eating, Position (lying supine or right side decubitus), Palpation Associated symptoms: Nausea. No: Fever, Vomiting, Diarrhea, Constipation Similar symptoms before: Diagnosis (biliary colic) - Additional information Additional information: c/o RUQ and epigastric pain that radiates around both flanks to back, onset 2 PM and waxing and waning since then, increasingly intense and persistent. She has had similar previous episodes diagnosed as biliary colic. Review of Systems Constitutional: denies: Fever, Chills, Sweats Cardiac: reports: Reviewed and negative Respiratory: reports: Reviewed and negative GI: reports: Abdominal Pain, Nausea. 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 : None HEENT: None Psych: Depression, Bipolar disorder, ADD/ADHD Musculoskeletal: None Derm: None Other Past Medical History: Gallstones - Past Surgical History Past Surgical History: Yes HEENT: Myringotomy (tubes), Tonsil/Adenoidectomy Derm: Other - Present Medications Home Medications: Ambulatory Orders Medication Instructions Recorded Confirmed Levofloxacin [Levaquin] 500 mg PO DAILY #7 tablet 09/05/19 Metronidazole [Flagyl] 500 mg PO BID #14 tablet 09/05/19 Ondansetron Odt [Zofran] 4 mg TL Q6H PRN #10 tablet 09/05/19 oxyCODONE [Roxicodone] 5 - 10 mg PO Q6H PRN #20 tablet 09/05/19 - Allergies Allergies/Adverse Reactions: Allergies Allergy/AdvReac Type Severity Reaction Status Date / Time amoxicillin AdvReac Intermediate diarrhea Verified 09/05/19 00:08 - Social History Does the pt smoke?: Yes Smoking Status: Current every day smoker Does the pt drink ETOH?: Yes Does the pt have substance abuse?: Yes - Immunizations Immunizations are current?: Yes - POLST Patient has POLST: No PD ED PE NORMAL - Vitals Vital signs reviewed: Yes - General General: Alert and oriented X 3, Well developed/nourished, Other (appears uncomfortable due to abdominal pain) - HEENT HEENT: Moist mucous membranes - Neck Neck: Supple, no meningeal sign - Cardiac Cardiac: RRR, No murmur - Respiratory Respiratory: No respiratory distress, Clear bilaterally - Abdomen Abdomen: Soft, Non distended - Back Back: No CVA TTP - Derm Derm: Normal color, Warm and dry PD ED PE EXPANDED - Abdomen Abdomen: Tender to palpation, RUQ, Epigastric. No: Rebound, Guarding Results - Vitals Vitals: Vital Signs - 24 hr 09/05/19 09/05/19 09/05/19 00:08 02:23 03:15 Temperature 36.5 C Heart Rate 82 93 100 Respiratory 18 18 16 Rate Blood Pressure 101/56 L 122/81 H 114/71 O2 Saturation 99 98 99 09/05/19 09/05/19 09/05/19 03:49 04:38 05:32 Temperature 36.2 C L Heart Rate 84 81 79 Respiratory 16 16 16 Rate Blood Pressure 108/71 100/66 104/68 O2 Saturation 97 95 95 Oxygen O2 Source Room air - Labs Labs: Laboratory Tests 09/05/19 09/05/19 09/05/19 01:55 01:55 03:12 WBC 15.4 H RBC 4.73 Hgb 13.9 Hct 41.8 MCV 88.4 MCH 29.4 MCHC 33.3 RDW 13.5 Plt Count 260 MPV 10.6 Neut # (Auto) 12.8 H Lymph # (Auto) 1.5 [place] # (Auto) 0.9 Eos # (Auto) 0.0 Baso # (Auto) 0.0 Absolute Nucleated RBC 0.00 Nucleated RBC % 0.0 Sodium 134 L Potassium 4.3 Chloride 104 Carbon Dioxide 22 Anion Gap 8.0 BUN 14 Creatinine 0.7 Estimated GFR (MDRD) 93 Glucose 117 H Calcium 8.7 Total Bilirubin 1.4 H AST 145 H ALT 64 H Alkaline Phosphatase 78 Total Protein 7.6 Albumin 4.0 Globulin 3.6 Albumin/Globulin Ratio 1.1 Lipase 21 L Urine Color YELLOW Urine Clarity CLEAR Urine pH 6.5 Ur Specific [place] 1.025 Urine Protein NEGATIVE Urine Glucose (UA) NEGATIVE Urine Ketones NEGATIVE Urine Occult Blood SMALL H Urine Nitrite NEGATIVE Urine Bilirubin NEGATIVE Urine Urobilinogen 0.2 (NORMAL) Ur Leukocyte Esterase NEGATIVE Urine RBC 0-5 Urine WBC 0-3 Ur Squamous Epith Cells FEW Squamous Urine Bacteria Rare Ur Microscopic Review INDICATED Urine Culture Comments NOT INDICATED Urine HCG, Qual NEGATIVE - Rads (name of study) RUQ US Radiology: Prelim report reviewed, See rad report PD MEDICAL DECISION MAKING - ED course Complexity details: reviewed results, re-evaluated patient, considered differential, d/w patient ED course: patient had partial relief with IV fluids, zofran, and toradol, and reported good relief with 4mg IV morphine. Results d/w patient. D/W Dr. Nunez (artificial insemination technician surgery), recommends d/c with analgesic rx and abx (john rgic to amoxicillin, thus she recommends levaquin and flagyl) with instructions to return if worse, f/u with Dr. Nunez's office Saturday. Patient is comfortable with this plan Departure - Departure Disposition: Home, Self Care Clinical Impression: Biliary colic Condition: Good Instructions: ED Gallstone W Biliary Colic Follow-Up: Rosalina Nunez MD [Provider Admit Priv/Credential] - (Call Saturday to arrange for immediate follow up ) Prescriptions: Levofloxacin [Levaquin] 500 mg PO DAILY #7 tablet Metronidazole [Flagyl] 500 mg PO BID #14 tablet Ondansetron Odt [Zofran] 4 mg TL Q6H PRN #10 tablet PRN Reason: Nausea / Vomiting oxyCODONE [Roxicodone] 5 - 10 mg PO Q6H PRN #20 tablet PRN Reason: Pain Discharge Date/Time: 09/05/19 05:44
[2019-09-05] MEDS ORDERED: SODIUM CHLORIDE 0.9% 1,000 ML IV STA (01:42)
[2019-09-05] MEDS ORDERED: ONDANSETRON 4 MG/2 ML VIAL IVP STA (01:42)
[2019-09-05] MEDS ORDERED: KETOROLAC 30 MG/ML VIAL IVP STA (01:42)
[2019-09-05 02:05] LABS: BASOPHILS % (AUTO) 0.3 %; EOSINOPHILS % (AUTO) 0.3 %; HGB - HEMOGLOBIN 13.9 g/dL (12.0-16.0); LYMPHOCYTES # (AUTO) 1.5 10^3/uL (1.5-3.5); LYMPHOCYTES % (AUTO) 9.6 %; MEAN CORPUSCULAR HEMOGLOBIN 29.4 pg (27.0-31.0); MEAN CORPUSCULAR HGB CONC 33.3 g/dL (32.0-36.0); MEAN CORPUSCULAR VOLUME 88.4 fL (81.0-99.0); MEAN PLATELET VOLUME 10.6 fL (7.9-10.8); MONOCYTES # (AUTO) 0.9 10^3/uL (0.0-1.0); MONOCYTES % (AUTO) 5.7 %; NEUTROPHILS # (AUTO) 12.8 10^3/uL (1.5-6.6); NEUTROPHILS % (AUTO) 83.6 %; PLT - PLATELET COUNT 260 10^3/uL (130-450); RED BLOOD COUNT 4.73 10^6/uL (4.20-5.40); RED CELL DISTRIBUTION WIDTH 13.5 % (12.0-15.0); WHITE BLOOD COUNT 15.4 x10^3/uL (4.8-10.8)
[2019-09-05 02:17] LABS: ALBUMIN/GLOBULIN RATIO 1.1 (1.0-2.2); BILIRUBIN,TOTAL 1.4 mg/dL (0.2-1.0); CALCIUM 8.7 mg/dL (8.5-10.3); CREATININE 0.7 mg/dL (0.4-1.0); TOTAL PROTEIN 7.6 g/dL (6.7-8.2)
[2019-09-05] MEDS ORDERED: MORPHINE 2 MG/ML CARPUJECT IVP STA (03:19)
[2019-09-05 03:23] LABS: BILIRUBIN,URINE NEGATIVE (NEGATIVE); GLUCOSE, URINE (UA) NEGATIVE (NEGATIVE); KETONES,URINE (UA) NEGATIVE (NEGATIVE); LEUKOCYTE ESTERASE, URINE NEGATIVE (NEGATIVE); NITRITE,URINE NEGATIVE (NEGATIVE); OCCULT BLOOD,URINE SMALL (NEGATIVE); PH,URINE 6.5 PH (5.0-7.5); PROTEIN,URINE NEGATIVE (NEGATIVE); UROBILINOGEN,URINE 0.2 (NORMAL) E.U./dL (NORMAL)
[2019-09-05 03:33] LABS: CLARITY,URINE CLEAR (CLEAR); HCG UR QUAL NEGATIVE
[2019-09-05 03:34] LABS: BACTERIA,URINE Rare /HPF (None Seen); RBC,URINE 0-5 /HPF (0-5); SQUAMOUS EPITHELIAL CELL,UR FEW Squamous (<= Few)
--- NOTE | 2019-09-05 03:41 | Ultrasound Report ---
Reason: RUQ pain Procedure Date: 09/05/2019 Accession Number: [id number] / [id number] Procedure: US - Abdomen Limited CPT Code: Final Report FULL RESULT: EXAM: ABDOMEN ULTRASOUND LIMITED, RUQ EXAM DATE: 09/05/2019 03:19 AM. CLINICAL HISTORY: RUQ pain. COMPARISON: ABDOMEN LIMITED 01/29/2019 12:18 AM. TECHNIQUE: Real-time scanning was performed with static images obtained. FINDINGS: Liver: Diffusely increased in echogenicity and size measuring 21.4 cm. Main portal vein flow: Hepatopetal. Gallbladder: Multiple gallstones with mild diffuse gallbladder wall thickening and positive Del Angel sign. No pericholecystic fluid. Biliary System: CBD is mildly and diffusely dilated and measures 8 mm. The distal common bile duct is not well seen due to overlying bowel gas. No intrahepatic ductal dilatation. Other: The right kidney appears normal without hydronephrosis. IMPRESSION: Findings which may reflect acute cholecystitis in the setting of cholelithiasis. Hepatomegaly. Diffusely increased echogenicity of the liver may reflect hepatic steatosis. RADIA
[2019-09-05] MEDS ORDERED: levoFLOXacin 250 MG TABLET PO STA (05:28)
[2019-09-05] MEDS ORDERED: metroNIDAZOLE 250 MG TABLET PO STA (05:31)
[2019-09-05 05:34] VITALS: BP 104/68
== END 2019-09-05 05:44 | disposition home or self-care (01) ==
LOC: ED 00:05
DX: K80.70 Calculus of gallbladder and bile duct without cholecystitis without obstruction (principal); F17.200 Nicotine dependence, unspecified, uncomplicated; F31.9 Bipolar disorder, unspecified; F90.9 Attention-deficit hyperactivity disorder, unspecified type
CPT/HCPCS: 36415; 76705; 80053; 81001; 81025; 83690; 85025; 96361; 96374; 96375; 99284; A9270; 81003; 87086

== ENCOUNTER 2019-12-07 02:14 | Outpatient (CLI) | payer MEDICAID | END 2019-12-07 02:15 | disposition critical access hospital (66) | LOC: EMS 02:14 | PROVIDERS: ATTEND Surgery | DX: S09.90XA Unspecified injury of head, initial encounter (principal); W01.0XXA Fall on same level from slipping, tripping and stumbling without subsequent striking against object, initial encounter; Y93.01 Activity, walking, marching and hiking; Y92.008 Other place in unspecified non-institutional (private) residence as the place of occurrence of the external cause | CPT/HCPCS: A0425; A0429; A0999 ==

== ENCOUNTER 2019-12-07 02:33 | Emergency (ER) | payer MEDICAID ==
--- NOTE | 2019-12-07 02:47 | ED Physician Documentation ---
PD HPI Fall - Stated complaint Stated Complaint: GLF, HIT FOREHEAD - Chief complaint Chief Complaint: Laceration - History obtained from History obtained from: Patient, EMS - History of Present Illness Mechanism of injury: Unknown Fall distance: Standing position Where injury occurred: Home Timing - onset: How many hours ago (approximately 30-40 minutes [employer]) Injury(ies) location: Head, Face Associated symptoms: No: LOC, Neck pain, Nausea / vomiting Contributing factors: Intoxicated. No: Anticoagulated Recently seen: Not recently seen - Additional information Additional information: Has been drinking alcohol and smoked marijuana tonight. When getting out of a car (patient was passenger), she fell in the driveway, face struck driveway concrete. Denies LOC. s.o. called ambulance Review of Systems Eyes: denies: Loss of vision, Decreased vision, Photophobia Nose: reports: Other (laceration) Throat: denies: Dental pain / toothache Cardiac: reports: Reviewed and negative Respiratory: reports: Reviewed and negative GI: reports: Reviewed and negative Musculoskeletal: reports: Reviewed and negative. denies: Neck pain, Back pain Neurologic: reports: Altered mental status, Headache, Head injury. 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 : None HEENT: None Psych: Depression, Bipolar disorder, ADD/ADHD Musculoskeletal: None Derm: None - Past Surgical History Past Surgical History: Yes HEENT: Myringotomy (tubes), Tonsil/Adenoidectomy Derm: Other - Present Medications Home Medications: Ambulatory Orders Medication Instructions Recorded Confirmed Cephalexin [Keflex] 500 mg PO Q6HR #20 capsule 12/07/19 - Allergies Allergies/Adverse Reactions: Allergies Allergy/AdvReac Type Severity Reaction Status Date / Time amoxicillin AdvReac Intermediate diarrhea Verified 12/07/19 02:43 - Social History Does the pt smoke?: Yes Smoking Status: Current every day smoker Does the pt drink ETOH?: Yes Does the pt have substance abuse?: Yes Substance Use and Type: Marijuana - Immunizations Immunizations are current?: Yes - POLST Patient has POLST: No PD ED PE NORMAL - Vitals Vital signs reviewed: Yes - General General: Well developed/nourished, Other (drowsy, briefly awakens to tactile and repeated verbal but falls back asleep rapidly. she does answer most questions with brief answers) - HEENT HEENT: PERRL, EOMI, Moist mucous membranes, Pharynx benign, Dentition benign - Neck Neck: Supple, no meningeal sign, No bony TTP - Cardiac Cardiac: RRR, No murmur - Respiratory Respiratory: No respiratory distress, Clear bilaterally - Abdomen Abdomen: Soft, Non tender - Back Back: No spinal TTP - Derm Derm: Normal color, Warm and dry - Extremities Extremities: No tenderness to palpate, Normal ROM s pain - Neuro Eye Opening: To Voice Motor: Obeys Commands Verbal: Oriented GCS Score: 14 PD ED PE EXPANDED - HEENT HEENT Visual: 1 - deformity (deep avulsion) Results - Vitals Vitals: Vital Signs - 24 hr 12/07/19 12/07/19 12/07/19 02:40 03:50 05:34 Temperature 36.6 C Heart Rate 81 83 80 Respiratory 18 18 18 Rate Blood Pressure 129/71 106/88 H 100/58 L O2 Saturation 99 99 98 12/07/19 12/07/19 12/07/19 06:09 07:27 08:32 Temperature 37 C Heart Rate 80 81 86 Respiratory 18 17 16 Rate Blood Pressure 91/55 L 102/69 108/78 O2 Saturation 98 96 98 Oxygen O2 Source Room air - Labs Labs: Laboratory Tests 12/07/19 12/07/19 12/07/19 04:17 04:17 04:17 WBC 11.8 H RBC 4.88 Hgb 14.4 Hct 43.8 MCV 89.8 MCH 29.5 MCHC 32.9 RDW 14.6 Plt Count 315 MPV 10.5 Neut # (Auto) 8.1 H Lymph # (Auto) 3.0 Mccreary # (Auto) 0.5 Eos # (Auto) 0.1 Baso # (Auto) 0.0 Absolute Nucleated RBC 0.00 Nucleated RBC % 0.0 Sodium 144 Potassium 3.7 Chloride 105 Carbon Dioxide 26 Anion Gap 13.0 BUN 8 Creatinine 0.6 Estimated GFR (MDRD) 110 Glucose 128 H Calcium 8.8 Total Bilirubin 1.1 H AST 17 ALT 17 Alkaline Phosphatase 57 Total Protein 7.6 Albumin 4.2 Globulin 3.4 Albumin/Globulin Ratio 1.2 Lipase 25 HCG, Quant < 0.60 Ethyl Alcohol 145.1 - Rads (name of study) CT head Radiology: Prelim report reviewed, See rad report CT cervical spine Radiology: Prelim report reviewed, See rad report PD MEDICAL DECISION MAKING - ED course Complexity details: reviewed results, re-evaluated patient, considered differential, d/w patient ED course: patient became increasingly awake and alert during ED stay, was AAOx3, conversant and appropriate on reevaluation after tests resulted. Her nasal laceration is actually a deep avulsion and the wound edges cannot be approximated, even if some degree of tension were allowed for. Thus, will allow to heal by secondary intention and rx antibiotic to lower infection risk. I explained to her that she needs to f/u with her PMD for wound check and might eventually benefit from seeing a plastic surgeon for scar revision Departure - Departure Disposition: 01 Home, Self Care Clinical Impression: Abrasion Fall Qualifiers: Encounter type: initial encounter Qualified Code(s): W19.XXXA - Unspecified fall, initial encounter Scalp contusion Qualifiers: Encounter type: initial encounter Qualified Code(s): S00.03XA - Contusion of scalp, initial encounter Condition: Good Instructions: ED Head Injury Closed, ED Avulsion Dermal Prescriptions: Cephalexin [Keflex] 500 mg PO Q6HR #20 capsule Comments: The injury to your nose is wide and deep but, unfortunately, the skin has avulsed and the edges are too far apart to repair (such as by stitching or using tissue adhesive). The wound should eventually heal but will likely leave a significant scar. If possible, try to arrange for a wound check by the end of the week with your primary care physician. Apply an antibiotic ointment (such as bacitracin) to the wound twice per day for 1 week. Discharge Date/Time: 12/07/19 08:32
[2019-12-07 04:24] LABS: BASOPHILS % (AUTO) 0.3 %; EOSINOPHILS # (AUTO) 0.1 10^3/uL (0.0-0.7); EOSINOPHILS % (AUTO) 0.9 %; HGB - HEMOGLOBIN 14.4 g/dL (12.0-16.0); LYMPHOCYTES % (AUTO) 25.2 %; MEAN CORPUSCULAR HEMOGLOBIN 29.5 pg (27.0-31.0); MEAN CORPUSCULAR HGB CONC 32.9 g/dL (32.0-36.0); MEAN CORPUSCULAR VOLUME 89.8 fL (81.0-99.0); MEAN PLATELET VOLUME 10.5 fL (7.9-10.8); MONOCYTES # (AUTO) 0.5 10^3/uL (0.0-1.0); MONOCYTES % (AUTO) 4.6 %; NEUTROPHILS # (AUTO) 8.1 10^3/uL (1.5-6.6); NEUTROPHILS % (AUTO) 68.5 %; PLT - PLATELET COUNT 315 10^3/uL (130-450); RED BLOOD COUNT 4.88 10^6/uL (4.20-5.40); RED CELL DISTRIBUTION WIDTH 14.6 % (12.0-15.0); WHITE BLOOD COUNT 11.8 x10^3/uL (4.8-10.8)
[2019-12-07 04:46] LABS: ALBUMIN 4.2 g/dL (3.2-5.5); ALBUMIN/GLOBULIN RATIO 1.2 (1.0-2.2); BILIRUBIN,TOTAL 1.1 mg/dL (0.2-1.0); CALCIUM 8.8 mg/dL (8.5-10.3); CREATININE 0.6 mg/dL (0.4-1.0); TOTAL PROTEIN 7.6 g/dL (6.7-8.2)
[2019-12-07] MEDS ORDERED: cephALEXin 250 MG CAPSULE PO STA (05:40)
[2019-12-07] MEDS ORDERED: BACITRACIN ZINC OINT 1 PACKET TOP STA (05:41)
--- NOTE | 2019-12-07 07:33 | CT Report ---
PROCEDURE: HEAD WO INDICATIONS: fall, LOC TECHNIQUE: Noncontrast 4.5 mm thick angled axial sections acquired from the foramen magnum to the vertex. For r adiation dose reduction, the following was used: automated exposure control, adjustment of mA and/or kV according to patient size. COMPARISON: None. FINDINGS: Image quality: Excellent. CSF spaces: Basal cisterns are patent. No extra-axial fluid collections. Ventricles are normal in size and shape. Brain: No midline shift. No intracranial masses or hemorrhage. Salazar-white matter interface is norm al. Skull and face: Calvarium and visualized facial bones are intact, without suspicious lesions. Small right frontal scalp contusion. Sinuses: Visualized sinuses and mastoids are clear. IMPRESSION: No acute intracranial disease process. Reviewed by: Carmelita Duran MD, PhD on 12/07/2019 7:31 AM PDT Approved by: Carmelita Duran MD, PhD on 12/07/2019 7:31 AM PDT Station ID: [id number]
--- NOTE | 2019-12-07 07:50 | CT Report ---
PROCEDURE: CERVICAL SPINE WO INDICATIONS: fall, LOC TECHNIQUE: Noncontrast 3 mm thick sections acquired from the skull base to the T4 level. Sagittal and coronal r eformats were then constructed. For radiation dose reduction, the following was used: automated exp osure control, adjustment of mA and/or kV according to patient size. COMPARISON: None. FINDINGS: Image quality: Excellent. Bones: No fractures or dislocations. Visualized superior ribs are intact. Soft tissues: Prevertebral soft tissues are normal in thickness. No paravertebral hematomas. No ap ical pneumothoraces. Patient status post surgical resection of right lobe the thyroid gland. IMPRESSION: No fracture. No osseous lesion. If there is continued clinical concern for pathology, then MRI should be considered for further evaluation. Reviewed by: Carmelita Duran MD, PhD on 12/07/2019 7:48 AM PDT Approved by: Carmelita Duran MD, PhD on 12/07/2019 7:48 AM PDT Station ID: [id number]
[2019-12-07 08:32] VITALS: BP 108/78
== END 2019-12-07 08:32 | disposition home or self-care (01) ==
LOC: EDUNIT# → ED 02:33
DX: S00.31XA Abrasion of nose, initial encounter (principal); S00.03XA Contusion of scalp, initial encounter; V58.4XXA Person boarding or alighting a pick-up truck or van injured in noncollision transport accident, initial encounter; Y93.89 Activity, other specified; Y92.008 Other place in unspecified non-institutional (private) residence as the place of occurrence of the external cause; F17.200 Nicotine dependence, unspecified, uncomplicated
CPT/HCPCS: 36415; 70450; 72125; 80053; 80320; 83690; 84702; 85025; 99284; A9270

== ENCOUNTER 2019-12-21 09:40 | Emergency (ER) | payer MEDICAID ==
[2019-12-21 10:19] LABS: BASOPHILS % (AUTO) 0.3 %; EOSINOPHILS # (AUTO) 0.2 10^3/uL (0.0-0.7); EOSINOPHILS % (AUTO) 2.4 %; HGB - HEMOGLOBIN 13.6 g/dL (12.0-16.0); MEAN CORPUSCULAR HEMOGLOBIN 30.4 pg (27.0-31.0); MEAN CORPUSCULAR HGB CONC 33.3 g/dL (32.0-36.0); MEAN CORPUSCULAR VOLUME 91.3 fL (81.0-99.0); MEAN PLATELET VOLUME 10.7 fL (7.9-10.8); MONOCYTES # (AUTO) 0.4 10^3/uL (0.0-1.0); MONOCYTES % (AUTO) 5.8 %; NEUTROPHILS # (AUTO) 4.3 10^3/uL (1.5-6.6); NEUTROPHILS % (AUTO) 62.2 %; PLT - PLATELET COUNT 254 10^3/uL (130-450); RED BLOOD COUNT 4.47 10^6/uL (4.20-5.40); RED CELL DISTRIBUTION WIDTH 14.4 % (12.0-15.0); WHITE BLOOD COUNT 6.9 x10^3/uL (4.8-10.8)
[2019-12-21 10:20] LABS: BILIRUBIN,URINE NEGATIVE (NEGATIVE); GLUCOSE, URINE (UA) NEGATIVE (NEGATIVE); KETONES,URINE (UA) NEGATIVE (NEGATIVE); LEUKOCYTE ESTERASE, URINE NEGATIVE (NEGATIVE); NITRITE,URINE NEGATIVE (NEGATIVE); OCCULT BLOOD,URINE LARGE (NEGATIVE); PH,URINE 7.5 PH (5.0-7.5); PROTEIN,URINE NEGATIVE (NEGATIVE); UROBILINOGEN,URINE 0.2 (NORMAL) E.U./dL (NORMAL)
[2019-12-21 10:25] LABS: CLARITY,URINE CLEAR (CLEAR)
[2019-12-21 10:37] LABS: ALBUMIN 4.1 g/dL (3.2-5.5); ALBUMIN/GLOBULIN RATIO 1.4 (1.0-2.2); CALCIUM 8.7 mg/dL (8.5-10.3); CREATININE 0.7 mg/dL (0.4-1.0)
[2019-12-21 10:41] LABS: RBC,URINE TNTC /HPF (0-5); SQUAMOUS EPITHELIAL CELL,UR FEW Squamous (<= Few)
[2019-12-21 10:42] LABS: BACTERIA,URINE Few /HPF (None Seen)
[2019-12-21] MEDS ORDERED: TRANEXAMIC ACID 1,000 MG in SODIUM CHLORIDE 0.9% 100ML 100 ML IV STA (12:22)
[2019-12-21] MEDS ORDERED: SODIUM CHLORIDE 0.9% 1,000 ML IV STA (12:22)
--- NOTE | 2019-12-21 12:29 | ED Physician Documentation ---
History of Present Illness - Stated complaint Stated Complaint: FEMALE - Chief complaint Chief Complaint: Abd Pain - History obtained from History obtained from: Patient - History of Present Illness Timing: How many days ago (3) Pain level max: 0 Pain level now: 0 - Additonal information Additional information: 39-year-old female presents to the emergency department with heavy vaginal bleeding. She states that she has heavy menses anyway, but this is worse than usual. She states that the only other time this happened to her was when she was on control in her teenage years. Nothing makes it better or worse. She states she passed a large clot this morning. She is currently not on any medications at home. No surgeries. History of ovarian cyst. 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 : None HEENT: None Psych: Depression, Bipolar disorder, ADD/ADHD Musculoskeletal: None Derm: None - Past Surgical History Past Surgical History: Yes HEENT: Myringotomy (tubes), Tonsil/Adenoidectomy Derm: Other - Present Medications Home Medications: Ambulatory Orders Medication Instructions Recorded Confirmed Cephalexin [Keflex] 500 mg PO Q6HR #20 capsule 12/07/19 Tranexamic Acid 1,300 mg PO TID 5 Days #30 tablet 12/21/19 - Allergies Allergies/Adverse Reactions: Allergies Allergy/AdvReac Type Severity Reaction Status Date / Time amoxicillin AdvReac Intermediate diarrhea Verified 12/21/19 09:51 - Social History Does the pt smoke?: Yes Smoking Status: Current every day smoker Does the pt drink ETOH?: Yes Does the pt have substance abuse?: Yes - Immunizations Immunizations are current?: Yes - POLST Patient has POLST: No PD ED PE NORMAL - Vitals Vital signs reviewed: Yes - General General: Alert and oriented X 3, No acute distress - HEENT HEENT: Moist mucous membranes - Neck Neck: Supple, no meningeal sign - Cardiac Cardiac: RRR, Strong equal pulses - Respiratory Respiratory: No respiratory distress, Clear bilaterally - Abdomen Abdomen: Soft, Non tender, Non distended - Female Female : Sales Account Leader present (SHAMA Higgins), Other (Scant bleeding from the cervical os. Some small clots were removed. Otherwise normal exam) - Derm Derm: Warm and dry - Extremities Extremities: No edema - Neuro Neuro: Alert and oriented X 3 - Psych Psych: Normal mood, Normal affect Results - Vitals Vitals: Vital Signs - 24 hr 12/21/19 12/21/19 12/21/19 09:47 11:22 12:00 Temperature 36.8 C Heart Rate 71 70 67 Respiratory 20 16 16 Rate Blood Pressure 117/69 109/56 L 94/77 O2 Saturation 100 100 100 12/21/19 12/21/19 12/21/19 12:30 13:00 13:30 Temperature Heart Rate 65 85 75 Respiratory 16 16 16 Rate Blood Pressure 114/68 94/61 117/62 O2 Saturation 99 99 99 12/21/19 12/21/19 12/21/19 14:00 14:30 15:00 Temperature Heart Rate 66 74 75 Respiratory 16 16 14 Rate Blood Pressure 118/64 111/68 121/81 H O2 Saturation 100 100 97 12/21/19 12/21/19 15:30 16:00 Temperature Heart Rate 73 73 Respiratory 16 16 Rate Blood Pressure 121/81 H 121/81 H O2 Saturation 98 98 Oxygen O2 Source Room air - Labs Labs: Laboratory Tests 12/21/19 12/21/19 12/21/19 10:00 10:00 10:00 WBC 6.9 RBC 4.47 Hgb 13.6 Hct 40.8 MCV 91.3 MCH 30.4 MCHC 33.3 RDW 14.4 Plt Count 254 MPV 10.7 Neut # (Auto) 4.3 Lymph # (Auto) 2.0 Phelps # (Auto) 0.4 Eos # (Auto) 0.2 Baso # (Auto) 0.0 Absolute Nucleated RBC 0.00 Nucleated RBC % 0.0 Sodium 139 Potassium 4.0 Chloride 106 Carbon Dioxide 27 Anion Gap 6.0 BUN 8 Creatinine 0.7 Estimated GFR (MDRD) 92 Glucose 100 Calcium 8.7 Total Bilirubin 1.0 AST 16 ALT 17 Alkaline Phosphatase 53 Total Protein 7.0 Albumin 4.1 Globulin 2.9 Albumin/Globulin Ratio 1.4 Lipase 25 HCG, Quant Urine Color Urine Clarity Urine pH Ur Specific Sinton Urine Protein Urine Glucose (UA) Urine Ketones Urine Occult Blood Urine Nitrite Urine Bilirubin Urine Urobilinogen Ur Leukocyte Esterase Urine RBC Urine WBC Ur Squamous Epith Cells Urine Bacteria Urine Culture Comments Blood Type A NEGATIVE 12/21/19 12/21/19 10:00 10:13 WBC RBC Hgb Hct MCV MCH MCHC RDW Plt Count MPV Neut # (Auto) Lymph # (Auto) Phelps # (Auto) Eos # (Auto) Baso # (Auto) Absolute Nucleated RBC Nucleated RBC % Sodium Potassium Chloride Carbon Dioxide Anion Gap BUN Creatinine Estimated GFR (MDRD) Glucose Calcium Total Bilirubin AST ALT Alkaline Phosphatase Total Protein Albumin Globulin Albumin/Globulin Ratio Lipase HCG, Quant < 0.60 Urine Color YELLOW Urine Clarity CLEAR Urine pH 7.5 Ur Specific Sinton 1.015 Urine Protein NEGATIVE Urine Glucose (UA) NEGATIVE Urine Ketones NEGATIVE Urine Occult Blood LARGE H Urine Nitrite NEGATIVE Urine Bilirubin NEGATIVE Urine Urobilinogen 0.2 (NORMAL) Ur Leukocyte Esterase NEGATIVE Urine RBC TNTC H Urine WBC 0-3 Ur Squamous Epith Cells FEW Squamous Urine Bacteria Few Urine Culture Comments NOT INDICATED Blood Type - Rads (name of study) pelvic US Radiology: Prelim report reviewed, EMP read contemporaneously, See rad report (1. No acute sonographic abnormality identified in the pelvis. ) PD MEDICAL DECISION MAKING - ED course Complexity details: reviewed results, re-evaluated patient, considered differential, d/w patient ED course: 39-year-old female presents to the emergency department with menorrhagia. Minimal bleeding on pelvic exam. Given TXA. She prefers to avoid hormone therapy as that seemed to make it worse when she was a teenager. Will place her on oral TXA as well. Discussed the case with Dr. Vincent, gynecology who recommends follow-up in clinic. She also requested an ultrasound be done. The ultrasound shows no acute sonographic abnormality in the pelvis. Patient is not lightheaded, dizzy, chest pain, dyspneic. Patient counseled regarding signs and symptoms for which I believe and urgent re-evaluation would be necessary. Patient with good understanding of and agreement to plan and is comfortable going home at this time This document was made in part using voice recognition software. While efforts are made to proofread this document, sound alike and grammatical errors may occur. Departure - Departure Disposition: 01 Home, Self Care Clinical Impression: Menorrhagia Qualifiers: Menorrhagia type: with regular cycle Qualified Code(s): N92.0 - Excessive and frequent menstruation with regular cycle Condition: Good Instructions: ED Bleeding Menstrual Heavy Follow-Up: BETTINA SARAH ARNP [Primary Care Provider] - Within 1 week Claudia Vincent MD [Provider Admit Priv/Credential] - Within 1 week Prescriptions: Tranexamic Acid 1,300 mg PO TID 5 Days #30 tablet Comments: We will trial you on tranexamic acid for home. Your ultrasound does not show any acute abnormalities today. Follow-up with gynecology for further care. Discharge Date/Time: 12/21/19 16:10
[2019-12-21 15:20] VITALS: BP 121/81
--- NOTE | 2019-12-21 16:19 | Ultrasound Report ---
PROCEDURE: Pelvic w/Transvaginal INDICATIONS: menorrhagia TECHNIQUE: Real-time scanning was performed of the pelvic organs, with image documentation. Additional endovagi nal scanning was necessary due to incomplete visualization of the adnexal and endometrial structures by transabdominal scanning. COMPARISON: CT abdomen pelvis 01/29/2019. FINDINGS: Transabdominal scanning: Limited scanning through the kidneys shows no hydronephrosis. No pathologi c free abdominal or pelvic fluid. Endovaginal scanning: Uterus: Uterus measures 10.2 x 5.5 x 6.6 cm. The endometrium measures 1.0 cm in combined thickness w ithout definite internal vascularity. Multiple nabothian cysts are noted. Ovaries: The right ovary measures 2.3 x 1.9 x 3.2 cm on the left ovary measures 2.8 x 2 x 2.2 cm. No adnexal masses. IMPRESSION: 1. No acute sonographic abnormality identified in the pelvis. Reviewed by: Aly Obrien MD on 12/21/2019 4:18 PM PDT Approved by: Aly Obrien MD on 12/21/2019 4:18 PM PDT Station ID: [id number]
== END 2019-12-21 16:10 | disposition home or self-care (01) ==
LOC: ED 09:40
DX: N92.0 Excessive and frequent menstruation with regular cycle (principal); F17.200 Nicotine dependence, unspecified, uncomplicated
CPT/HCPCS: 36415; 76830; 76856; 80053; 81001; 83690; 84702; 85025; 86900; 86901; 87086; 96361; 96365; 99284

== ENCOUNTER 2020-03-03 13:02 | Emergency (ER) | payer MEDICAID ==
--- NOTE | 2020-03-03 13:44 | ED Physician Documentation ---
History of Present Illness - Stated complaint Stated Complaint: COUGH - Chief complaint Chief Complaint: Heent - History obtained from History obtained from: Patient - Additonal information Additional information: Pt presents w/ bodyaches, fatigue, dry cough and sore throat for about 5 days now. Achy all over, though this is improving. No known fever but has been taking antipyretics prn. Hasn't attempted any meds for cough. 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 Her and child both have similar sx, but no known covid + contact. Tolerating po well, no cp, abd pain, n/v/d, or urinary sx. Review of Systems Constitutional: reports: Myalgias, Fatigue. denies: Fever Eyes: reports: Reviewed and negative Ears: reports: Reviewed and negative Nose: reports: Reviewed and negative Throat: reports: Sore throat, Swollen tonsils Cardiac: reports: Reviewed and negative Respiratory: reports: Cough. 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 : None HEENT: None Psych: Depression, Bipolar disorder, ADD/ADHD Musculoskeletal: None Derm: None - Past Surgical History Past Surgical History: Yes HEENT: Myringotomy (tubes), Tonsil/Adenoidectomy Derm: Other - Present Medications Home Medications: Ambulatory Orders Medication Instructions Recorded Confirmed No Known Home Medications 01/08/20 01/08/20 - Allergies Allergies/Adverse Reactions: Allergies Allergy/AdvReac Type Severity Reaction Status Date / Time amoxicillin AdvReac Intermediate diarrhea Verified 03/03/20 13:06 - Social History Does the pt smoke?: Yes Smoking Status: Current every day smoker Does the pt drink ETOH?: Yes Does the pt have substance abuse?: Yes - Immunizations Immunizations are current?: Yes - POLST Patient has POLST: No PD ED PE NORMAL - Vitals Vital signs reviewed: Yes - General General: Alert and oriented X 3, No acute distress, Well developed/nourished - HEENT HEENT: Atraumatic, Moist mucous membranes, Pharynx benign - Neck Neck: Supple, no meningeal sign, No adenopathy, No JVD - Cardiac Cardiac: RRR, No murmur, No gallop, No rub - Respiratory Respiratory: No respiratory distress, Clear bilaterally - Abdomen Abdomen: Normal bowel sounds, Soft, Non tender, Non distended - Derm Derm: Normal color, Warm and dry, No rash - Neuro Neuro: Alert and oriented X 3 Eye Opening: Spontaneous Motor: Obeys Commands Verbal: Oriented GCS Score: 15 - Psych Psych: Normal mood, Normal affect Results - Vitals Vitals: Vital Signs - 24 hr 03/03/20 03/03/20 13:06 15:10 Temperature 36.8 C Heart Rate 108 H 78 Respiratory 16 16 Rate Blood Pressure 146/75 H 135/100 H O2 Saturation 97 Oxygen O2 Source Room air PD MEDICAL DECISION MAKING - ED course Complexity details: reviewed results, re-evaluated patient, considered differential ED course: Pt presents with sx of a viral URI. She has dry cough but is not hypoxic and lungs clear, xray is normal. I did obtain a Covid test as pt has many of the symptoms, advised pt that it would be resulted in a few days and pt should stay home and self isolate until results obtained and sx resolved. A note was provided for work. Discussed supportive measures including rest, oral fluids, prn tylenol. Return precautions reviewed with patient in detail. Departure - Departure Disposition: 01 Home, Self Care Clinical Impression: Viral URI with cough Instructions: ED Viral Syndrome Ch Comments: Please stay home until you receive your Covid test and, if negative, your symptoms are resolved for 24 hours. You may take otc tylenol, motrin, cough medication as needed. Please rest and drink plenty of fluids. Forms: Activity restrictions Discharge Date/Time: 03/03/20 15:10
--- NOTE | 2020-03-03 14:27 | XRAY Report ---
PROCEDURE: Chest 2 View X-Ray INDICATIONS: cough TECHNIQUE: 2 view(s) of the chest. COMPARISON: None. FINDINGS: Surgical changes and devices: None. Lungs and pleura: No pleural effusions or pneumothorax. Lungs are clear. Mediastinum: Mediastinal contours are normal. Heart size is normal. Bones and chest wall: No suspicious bony abnormalities. Soft tissues appear unremarkable. IMPRESSION: No acute cardiopulmonary pathology. Reviewed by: Vikram Ramos MD on 03/03/2020 2:26 PM PDT Approved by: Vikram Ramos MD on 03/03/2020 2:26 PM PDT Station ID: [id number]
[2020-03-03 15:11] VITALS: BP 135/100
== END 2020-03-03 15:10 | disposition home or self-care (01) ==
LOC: ED 13:02
DX: J06.9 Acute upper respiratory infection, unspecified (principal); R05 Cough; F17.200 Nicotine dependence, unspecified, uncomplicated; Z20.828 Contact with and (suspected) exposure to other viral communicable diseases
CPT/HCPCS: 71046; 99284

== ENCOUNTER 2020-06-10 11:55 | Outpatient (CLI) | payer MEDICAID | END 2020-06-10 23:59 | disposition home or self-care (01) | LOC: LAB.N 11:55 | PROVIDERS: ATTEND Physician Assistant Medical | DX: B34.9 Viral infection, unspecified (principal); Z20.822 Contact with and (suspected) exposure to COVID-19 | CPT/HCPCS: 87275; 87276 ==

== ENCOUNTER 2020-10-06 08:00 | Outpatient (CLI) | payer MEDICAID | END 2020-10-06 23:59 | disposition home or self-care (01) | LOC: LAB.N 08:00 | PROVIDERS: ATTEND Nurse Practitioner | DX: B34.9 Viral infection, unspecified (principal); Z20.822 Contact with and (suspected) exposure to COVID-19 | CPT/HCPCS: 87275; 87276 ==

== ENCOUNTER 2020-10-06 08:00 | Outpatient (CLI) | payer MEDICAID | END 2020-10-06 23:59 | disposition home or self-care (01) | LOC: LAB.R 08:00 | PROVIDERS: ATTEND Nurse Practitioner | DX: B34.9 Viral infection, unspecified (principal) | CPT/HCPCS: 87275; 87276 ==

== ENCOUNTER 2020-10-06 08:00 | Outpatient (CLI) | payer MEDICAID | END 2020-10-06 23:59 | disposition home or self-care (01) | LOC: LAB.R 08:00 | PROVIDERS: ATTEND Nurse Practitioner | DX: B34.9 Viral infection, unspecified (principal); Z20.822 Contact with and (suspected) exposure to COVID-19 | CPT/HCPCS: 87275; 87276 ==

== ENCOUNTER 2021-01-03 15:36 | Emergency (ER) | payer MEDICAID ==
[2021-01-03 16:05] VITALS: BP 127/47
--- NOTE | 2021-01-03 16:17 | ED Physician Documentation ---
PD HPI SKIN - Stated complaint Stated Complaint: ITCHING - Chief complaint Chief Complaint: Wound - History obtained from History obtained from: Patient - Additional information Additional information: 40-year-old woman has been itching especially about the scalp but less so the groin for the last 9 days. Her boyfriend was seen here and diagnosed with pediculosis. The itching on the scalp is less now after using topical permethrin, but now has some lesions on her face for the last few days. 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 HEENT: None Psych: Depression, Bipolar disorder, ADD/ADHD Musculoskeletal: None Derm: None - Past Surgical History Past Surgical History: Yes HEENT: Myringotomy (tubes), Tonsil/Adenoidectomy Derm: Other - Present Medications Home Medications: Ambulatory Orders Medication Instructions Recorded Confirmed Doxepin [SINEquan] 10 mg PO TID PRN #14 cap 01/03/21 Ivermectin 4 tab PO UD #12 tablet 01/03/21 cephALEXin [Keflex] 500 mg PO Q6H #28 cap 01/03/21 - Allergies Allergies/Adverse Reactions: Allergies Allergy/AdvReac Type Severity Reaction Status Date / Time amoxicillin AdvReac Intermediate diarrhea Verified 01/03/21 16:05 - Social History Does the pt smoke?: Yes Smoking Status: Current every day smoker Does the pt drink ETOH?: Yes Does the pt have substance abuse?: Yes - Immunizations Immunizations are current?: Yes - POLST Patient has POLST: No PD ED PE NORMAL - Vitals Vital signs reviewed: Yes - General General: Alert and oriented X 3, No acute distress - HEENT HEENT: Other (I do not appreciate any nits about the scalp. She does have 3 picked at areas of impetigo on the left side of the face. No spreading infection beyond that.) - Neuro Neuro: Alert and oriented X 3, Normal speech Results - Vitals Vitals: Vital Signs - 24 hr 01/03/21 15:55 Temperature 37.1 C Heart Rate 102 H Respiratory 16 Rate Blood Pressure 127/47 L O2 Saturation 100 Oxygen O2 Source Room air Departure - Departure Disposition: Home, Self Care Clinical Impression: Impetigo Condition: Good Record reviewed to determine appropriate education?: Yes Instructions: ED Staph Infec Abx Tx Only Prescriptions: Ivermectin 4 tab PO UD #12 tablet cephALEXin [Keflex] 500 mg PO Q6H #28 cap Doxepin [SINEquan] 10 mg PO TID PRN #14 cap PRN Reason: Itching Comments: As discussed, today it looks more likely that you have impetigo from picking at lesions on your face. I do not see any nits, that said since the other physician was pretty convinced that her boyfriend had some sort of pediculosis I am treating you with the same medication. Return for new or worsening symptoms.
== END 2021-01-03 16:24 | disposition home or self-care (01) ==
LOC: ED 15:36
DX: L01.00 Impetigo, unspecified (principal); F17.200 Nicotine dependence, unspecified, uncomplicated
CPT/HCPCS: 99283

== ENCOUNTER 2021-03-29 19:15 | Emergency (ER) | payer MEDICAID ==
[2021-03-29 19:43] LABS: BASOPHILS # (AUTO) 0.1 10^3/uL (0.0-0.1); BASOPHILS % (AUTO) 0.5 %; EOSINOPHILS # (AUTO) 0.8 10^3/uL (0.0-0.7); HCT - HEMATOCRIT 37.8 % (37.0-47.0); HGB - HEMOGLOBIN 12.2 g/dL (12.0-16.0); LYMPHOCYTES # (AUTO) 2.6 10^3/uL (1.5-3.5); LYMPHOCYTES % (AUTO) 26.9 %; MEAN CORPUSCULAR HEMOGLOBIN 27.6 pg (27.0-31.0); MEAN CORPUSCULAR HGB CONC 32.3 g/dL (32.0-36.0); MEAN CORPUSCULAR VOLUME 85.5 fL (81.0-99.0); MEAN PLATELET VOLUME 9.8 fL (7.9-10.8); MONOCYTES # (AUTO) 0.8 10^3/uL (0.0-1.0); MONOCYTES % (AUTO) 8.7 %; NEUTROPHILS # (AUTO) 5.4 10^3/uL (1.5-6.6); NEUTROPHILS % (AUTO) 55.7 %; PLT - PLATELET COUNT 324 10^3/uL (130-450); RED BLOOD COUNT 4.42 10^6/uL (4.20-5.40); RED CELL DISTRIBUTION WIDTH 15.4 % (12.0-15.0); WHITE BLOOD COUNT 9.7 x10^3/uL (4.8-10.8)
[2021-03-29 19:56] LABS: ALBUMIN/GLOBULIN RATIO 1.2 (1.0-2.2); BILIRUBIN,TOTAL 0.8 mg/dL (0.2-1.0); CALCIUM 8.8 mg/dL (8.5-10.3); CREATININE 0.6 mg/dL (0.4-1.0); POTASSIUM 3.6 mmol/L (3.5-5.0); TOTAL PROTEIN 7.3 g/dL (6.7-8.2)
--- NOTE | 2021-03-29 20:08 | XRAY Report ---
PROCEDURE: Chest 1 View X-Ray INDICATIONS: Chest pain TECHNIQUE: One view of the chest was acquired. COMPARISON: 03/03/2020. FINDINGS: Surgical changes and devices: None. Lungs and pleura: No pleural effusions or pneumothorax. Lungs are clear. Mediastinum: Mediastinal contours appear normal. Heart size is normal. Bones and chest wall: No suspicious bony lesions. Overlying soft tissues appear unremarkable. IMPRESSION: No acute cardiopulmonary disease process. Reviewed by: Carmelita Duran MD, PhD on 03/29/2021 8:07 PM PDT Approved by: Carmelita Duran MD, PhD on 03/29/2021 8:07 PM PDT Station ID: [id number]
--- NOTE | 2021-03-29 21:37 | ED Physician Documentation ---
PD HPI CHEST PAIN - Stated complaint Stated Complaint: CHEST PX - Chief complaint Chief Complaint: Cardiac - History obtained from History obtained from: Patient - Additional information Additional information: This a 40-year-old Female who presents with 1 month of sinus congestion, rhinorrhea, intermittent cough. Her daughter has had similar symptoms and she states that she was taking care of her so neglected to take care of herself. She then developed chest pain today, chest pain is in the left-sided chest rating into the back, intermittent, she cannot identify any alleviating or exacerbating factors. Patient is somewhat hyperactive, she states that she smoked marijuana before she came in as this seems to help her, denies any meth or other stimulant use. She did also take a Mucinex with dextromethorphan just prior to arrival. She has no history of DVT or PE, no recent prolonged immobilization, no recent surgeries, is not on any Control. She states she has a number of stressors currently, stating "my life sucks,", she is going through divorce and has a number of financial and social stressors.She denies any SI. She would like a Covid test, she has received 1 out of 2 maternal vaccines, has not yet received flu vaccine. Review of Systems Constitutional: reports: Reviewed and negative Eyes: reports: Reviewed and negative Ears: reports: Reviewed and negative Nose: reports: Rhinorrhea / runny nose, Congestion, Sinus pressure / pain Throat: reports: Sore throat. 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 HEENT: None Psych: Depression, Bipolar disorder, ADD/ADHD Musculoskeletal: None Derm: None - Past Surgical History Past Surgical History: Yes HEENT: Myringotomy (tubes), Tonsil/Adenoidectomy Derm: Other - Present Medications Home Medications: Ambulatory Orders Medication Instructions Recorded Confirmed Doxepin [SINEquan] 10 mg PO TID PRN #14 cap 01/03/21 Ivermectin 4 tab PO UD #12 tablet 01/03/21 cephALEXin [Keflex] 500 mg PO Q6H #28 cap 01/03/21 Azithromycin [Zithromax] 0 mg PO DAILY #6 tablet 03/29/21 - Allergies Allergies/Adverse Reactions: Allergies Allergy/AdvReac Type Severity Reaction Status Date / Time amoxicillin AdvReac Intermediate diarrhea Verified 01/03/21 16:05 - Social History Does the pt smoke?: Yes Smoking Status: Current every day smoker Does the pt drink ETOH?: Yes Does the pt have substance abuse?: Yes - Immunizations Immunizations are current?: Yes - POLST Patient has POLST: No PD ED PE NORMAL - Vitals Vital signs reviewed: Yes - General General: Alert and oriented X 3, No acute distress, Well developed/nourished, Other - HEENT HEENT: Atraumatic, PERRL, EOMI, Moist mucous membranes, Pharynx benign (Reactive) - Neck Neck: Supple, no meningeal sign, No JVD - Cardiac Cardiac: RRR, No murmur - Respiratory Respiratory: No respiratory distress, Clear bilaterally - Abdomen Abdomen: Normal bowel sounds, Soft, Non tender, Non distended - Derm Derm: Normal color, Warm and dry, No rash - Extremities Extremities: No deformity, No tenderness to palpate, Normal ROM s pain, No edema, No calf tenderness / cord - Neuro Neuro: Alert and oriented X 3 Eye Opening: Spontaneous Motor: Obeys Commands Verbal: Oriented GCS Score: 15 - Psych Psych: Normal mood, Normal affect Results - Vitals Vitals: Vital Signs - 24 hr 03/29/21 03/29/21 03/29/21 19:23 19:30 21:30 Temperature 36.9 C 36.9 C Heart Rate 116 H 97 91 Respiratory 18 15 16 Rate Blood Pressure 150/102 H 130/73 133/74 H O2 Saturation 97 100 99 03/29/21 21:41 Temperature 37 C Heart Rate 91 Respiratory 17 Rate Blood Pressure 129/72 O2 Saturation 99 Oxygen O2 Source Room air - Labs Labs: Laboratory Tests 03/29/21 03/29/21 03/29/21 19:38 19:38 19:38 WBC 9.7 RBC 4.42 Hgb 12.2 Hct 37.8 MCV 85.5 MCH 27.6 MCHC 32.3 RDW 15.4 H Plt Count 324 MPV 9.8 Neut # (Auto) 5.4 Lymph # (Auto) 2.6 [place] # (Auto) 0.8 Eos # (Auto) 0.8 H Baso # (Auto) 0.1 Absolute Nucleated RBC 0.00 Nucleated RBC % 0.0 Sodium 139 Potassium 3.6 Chloride 105 Carbon Dioxide 27 Anion Gap 7.0 BUN 9 Creatinine 0.6 Estimated GFR (MDRD) 110 Glucose 107 H Calcium 8.8 Total Bilirubin 0.8 AST 15 ALT 19 Alkaline Phosphatase 64 Troponin I High Sens < 2.3 L Total Protein 7.3 Albumin 4.0 Globulin 3.3 Albumin/Globulin Ratio 1.2 Lipase 32 Influenza A (Rapid) Influenza B (Rapid) 03/29/21 21:35 WBC RBC Hgb Hct MCV MCH MCHC RDW Plt Count MPV Neut # (Auto) Lymph # (Auto) [place] # (Auto) Eos # (Auto) Baso # (Auto) Absolute Nucleated RBC Nucleated RBC % Sodium Potassium Chloride Carbon Dioxide Anion Gap BUN Creatinine Estimated GFR (MDRD) Glucose Calcium Total Bilirubin AST ALT Alkaline Phosphatase Troponin I High Sens Total Protein Albumin Globulin Albumin/Globulin Ratio Lipase Influenza A (Rapid) Negative Influenza B (Rapid) Negative PD MEDICAL DECISION MAKING - ED course Complexity details: reviewed results, re-evaluated patient, considered differential, d/w patient ED course: 40-year-old female who presented with approximately 1 month of sinus congestion and rhinorrhea as well as left-sided chest pain today. Chest pain is atypical, EKG, troponin and other labs are reassuring, chest x-ray is negative. Heart score is 0, Wells criteria is 0. She will be discharged with a course of azithromycin for prolonged sinusitis, has allergy to amoxicillin. Recommended supportive measures including Tylenol, ibuprofen, decongestants, saline nasal spray, rest and oral fluids. Reviewed return precautions since she had with the patient. Flu and Covid test were obtained and patient will be notified of results when they arrive. Departure - Departure Disposition: 01 Home, Self Care Clinical Impression: Atypical chest pain Instructions: ED Chest Pain NonCardiac, ED Sinusitis Abx Tx Prescriptions: Azithromycin [Zithromax] 0 mg PO DAILY #6 tablet Comments: You presented w/ chest pain. Your heart workup was reassuring. You do have a sinusitis that has lasted nearly a month so as we discussed we will try antibiotics. Continue as needed ibuprofen/tylenol, sinus decongestant, nasal spray. To the ER if you have new or worsening symptoms of chest pain or other new concerns. Discharge Date/Time: 03/29/21 21:41
[2021-03-29 21:43] VITALS: BP 129/72
== END 2021-03-29 21:41 | disposition home or self-care (01) ==
LOC: ED 19:15
DX: R07.89 Other chest pain (principal); R00.0 Tachycardia, unspecified; J32.9 Chronic sinusitis, unspecified; F17.200 Nicotine dependence, unspecified, uncomplicated; Z20.822 Contact with and (suspected) exposure to COVID-19; Z88.0 Allergy status to penicillin
CPT/HCPCS: 36415; 80053; 83690; 84484; 85025; 87275; 87276; 93005; 99284

== ENCOUNTER 2021-04-23 20:03 | Emergency (ER) | payer MEDICAID ==
[2021-04-23] MEDS ORDERED: predniSONE 20 MG TABLET PO STA (20:26)
[2021-04-23] MEDS ORDERED: HYDROcod/ACET 5/325 Prepack 4 PO STA (20:26)
[2021-04-23] MEDS ORDERED: HYDROcod/ACETAM 5/325 MG TABLET PO STA (20:26)
--- NOTE | 2021-04-23 20:28 | ED Physician Documentation ---
History of Present Illness - Stated complaint Stated Complaint: JOINT PX - Chief complaint Chief Complaint: General - History obtained from History obtained from: Patient - Additonal information Additional information: 40-year-old woman with chronic polyarthritis, especially knees, hips, shoulders, ankle, back. It is unclear what previous work-up has been done for this. It is always worse in the fall. Previously she was on gabapentin which was modestly helpful. She has been taking OTC NSAIDs and Tylenol without relief. Review of Systems Constitutional: denies: Fever, Chills, Weight Loss GI: denies: Abdominal Pain, Nausea, Vomiting : reports: Other (Left flank pain starting today). denies: Dysuria, Frequency Musculoskeletal: reports: Back pain. 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 HEENT: None Psych: Depression, Bipolar disorder, ADD/ADHD Musculoskeletal: None Derm: None - Past Surgical History Past Surgical History: Yes HEENT: Myringotomy (tubes), Tonsil/Adenoidectomy Derm: Other - Present Medications Home Medications: Ambulatory Orders Medication Instructions Recorded Confirmed Doxepin [SINEquan] 10 mg PO TID PRN #14 cap 01/03/21 Ivermectin 4 tab PO UD #12 tablet 01/03/21 cephALEXin [Keflex] 500 mg PO Q6H #28 cap 01/03/21 Azithromycin [Zithromax] 0 mg PO DAILY #6 tablet 03/29/21 predniSONE [Deltasone] 20 mg PO [id number] #21 tab 04/23/21 - Allergies Allergies/Adverse Reactions: Allergies Allergy/AdvReac Type Severity Reaction Status Date / Time amoxicillin AdvReac Intermediate diarrhea Verified 04/23/21 20:13 - Social History Does the pt smoke?: Yes Smoking Status: Current every day smoker Does the pt drink ETOH?: Yes Does the pt have substance abuse?: Yes - Immunizations Immunizations are current?: Yes - POLST Patient has POLST: No PD ED PE NORMAL - Vitals Vital signs reviewed: Yes - General General: Alert and oriented X 3, No acute distress - HEENT HEENT: PERRL, EOMI - Neck Neck: Supple, no meningeal sign, No bony TTP - Cardiac Cardiac: RRR, No murmur - Back Back: No CVA TTP, No spinal TTP - Extremities Extremities: Other (All major joints have full range of motion, no effusions of the knees or ankles. No redness of any joints.) - Neuro Neuro: Alert and oriented X 3, Normal speech Results - Vitals Vitals: Vital Signs - 24 hr 04/23/21 20:08 Temperature 36.5 C Heart Rate 105 H Respiratory 18 Rate Blood Pressure 118/91 H O2 Saturation 100 Oxygen O2 Source Room air - Labs Labs: Laboratory Tests 04/23/21 04/23/21 04/23/21 20:33 20:39 20:39 WBC 10.4 RBC 4.37 Hgb 12.0 Hct 36.6 L MCV 83.8 MCH 27.5 MCHC 32.8 RDW 14.9 Plt Count 333 MPV 9.8 Neut # (Auto) 6.5 Lymph # (Auto) 2.8 [place] # (Auto) 0.8 Eos # (Auto) 0.3 Baso # (Auto) 0.0 Absolute Nucleated RBC 0.00 Nucleated RBC % 0.0 Sodium 137 Potassium 3.6 Chloride 105 Carbon Dioxide 23 Anion Gap 9.0 BUN 15 Creatinine 0.7 Estimated GFR (MDRD) 92 Glucose 108 H Calcium 8.6 Total Bilirubin 1.0 AST 18 ALT 25 Alkaline Phosphatase 60 C-Reactive Protein 1.5 H Total Protein 7.5 Albumin 4.0 Globulin 3.5 Albumin/Globulin Ratio 1.1 Urine Color YELLOW Urine Clarity CLEAR Urine pH 6.5 Ur Specific [place] 1.020 Urine Protein NEGATIVE Urine Glucose (UA) NEGATIVE Urine Ketones NEGATIVE Urine Occult Blood TRACE-INTA Urine Nitrite NEGATIVE Urine Bilirubin NEGATIVE Urine Urobilinogen 0.2 (NORMAL) Ur Leukocyte Esterase NEGATIVE Ur Microscopic Review NOT INDICATED Urine Culture Comments NOT INDICATED Urine HCG, Qual NEGATIVE Urine Opiates Screen NEGATIVE Ur Oxycodone Screen NEGATIVE Urine Methadone Screen NEGATIVE Ur Propoxyphene Screen NEGATIVE Ur Barbiturates Screen NEGATIVE Ur Tricyclics Screen NEGATIVE Ur Phencyclidine Scrn NEGATIVE Ur Amphetamine Screen NEGATIVE U Methamphetamines Scrn NEGATIVE U Benzodiazepines Scrn NEGATIVE Urine Cocaine Screen POSITIVE H U Cannabinoids Screen POSITIVE H PD MEDICAL DECISION MAKING - ED course ED course: 40-year-old woman presents with acute on chronic polyarthralgia. As a service to her we obtained blood work which she understands the need to follow-up with her primary care physician to discuss as much of it is reference lab and will not be done tonight. Urinalysis was normal, but did note to have cocaine in the urine which after confronting her with it admits to using 2 days ago. Discussed with her that this negated any ability to treat her with narcotic analgesia other than the hydrocodone she had received prior to that result. Of note I had ordered a Vicodin prepack prior to this result and gave it back to the nurse to return to the pharmacy. Departure - Departure Disposition: 01 Home, Self Care Clinical Impression: Cocaine abuse Joint pain Qualifiers: Joint pain location: unspecified Qualified Code(s): M25.50 - Pain in unspecified joint Condition: Good Record reviewed to determine appropriate education?: Yes Instructions: ED Chronic Pain Management Prescriptions: predniSONE [Deltasone] 20 mg PO [id number] #21 tab Comments: You were seen today for chronic polyarthritis of unclear etiology. I have ordered testing that you will need to discuss with your physician. This includes CBC, CMP, ESR, CRP, TONI, rheumatoid factor, anti-CCP antibodies. You can either have your physician request these from hospital medical records or you can get them from the patient portal available at the hospital website, [email or web address]. Either way make sure to share these with your physician and discuss. As discussed though, the positive cocaine screen limits our ability to treat your pain With controlled substances and we will prescribe some steroids, but otherwise [id number] Tylenol and ibuprofen are recommended.
[2021-04-23 20:45] LABS: MUDS CUTOFF CONCENTRATIONS CUTOFF CONC BELOW:
[2021-04-23 20:48] LABS: BILIRUBIN,URINE NEGATIVE (NEGATIVE); GLUCOSE, URINE (UA) NEGATIVE (NEGATIVE); KETONES,URINE (UA) NEGATIVE (NEGATIVE); LEUKOCYTE ESTERASE, URINE NEGATIVE (NEGATIVE); NITRITE,URINE NEGATIVE (NEGATIVE); OCCULT BLOOD,URINE TRACE-INTA (NEGATIVE); PH,URINE 6.5 PH (5.0-7.5); PROTEIN,URINE NEGATIVE (NEGATIVE); UROBILINOGEN,URINE 0.2 (NORMAL) E.U./dL (NORMAL)
[2021-04-23 20:48] LABS: BASOPHILS % (AUTO) 0.4 %; EOSINOPHILS # (AUTO) 0.3 10^3/uL (0.0-0.7); EOSINOPHILS % (AUTO) 2.7 %; HCT - HEMATOCRIT 36.6 % (37.0-47.0); LYMPHOCYTES # (AUTO) 2.8 10^3/uL (1.5-3.5); LYMPHOCYTES % (AUTO) 27.3 %; MEAN CORPUSCULAR HEMOGLOBIN 27.5 pg (27.0-31.0); MEAN CORPUSCULAR HGB CONC 32.8 g/dL (32.0-36.0); MEAN CORPUSCULAR VOLUME 83.8 fL (81.0-99.0); MEAN PLATELET VOLUME 9.8 fL (7.9-10.8); MONOCYTES # (AUTO) 0.8 10^3/uL (0.0-1.0); MONOCYTES % (AUTO) 7.6 %; NEUTROPHILS # (AUTO) 6.5 10^3/uL (1.5-6.6); NEUTROPHILS % (AUTO) 61.8 %; PLT - PLATELET COUNT 333 10^3/uL (130-450); RED BLOOD COUNT 4.37 10^6/uL (4.20-5.40); RED CELL DISTRIBUTION WIDTH 14.9 % (12.0-15.0); WHITE BLOOD COUNT 10.4 x10^3/uL (4.8-10.8)
[2021-04-23 20:50] LABS: CLARITY,URINE CLEAR (CLEAR); HCG UR QUAL NEGATIVE
[2021-04-23 20:59] LABS: AMPHETAMINE SCREEN,URINE NEGATIVE (NEGATIVE); BARBITURATE SCREEN,UR NEGATIVE (NEGATIVE); BENZODIAZEPINES SCREEN, URINE NEGATIVE (NEGATIVE); COCAINE SCREEN URINE POSITIVE (NEGATIVE); METHADONE SCREEN, URINE NEGATIVE (NEGATIVE); METHAMPHETAMINES SCREEN, URINE NEGATIVE (NEGATIVE); OPIATE SCREEN, URINE NEGATIVE (NEGATIVE); OXYCODONE SCREEN, URINE NEGATIVE (NEGATIVE); PROPOXYPHENE SCREEN, URINE NEGATIVE (NEGATIVE); THC CANNABINOID SCREEN, URINE POSITIVE (NEGATIVE); TRICYCLIC ANTIDEPRESSANT,URINE NEGATIVE (NEGATIVE)
[2021-04-23 21:05] LABS: ALBUMIN/GLOBULIN RATIO 1.1 (1.0-2.2); CALCIUM 8.6 mg/dL (8.5-10.3); CREATININE 0.7 mg/dL (0.4-1.0); CRP - C-REACTIVE PROTEIN 1.5 mg/dL (0-1.0); POTASSIUM 3.6 mmol/L (3.5-5.0); TOTAL PROTEIN 7.5 g/dL (6.7-8.2)
[2021-04-23 21:07] LABS: RHEUMATOID FACTOR NEGATIVE (Negative)
[2021-04-23 21:12] VITALS: BP 115/89
[2021-04-26 09:41] LABS: ANA SCREEN NEGATIVE (NEGATIVE)
== END 2021-04-23 21:12 | disposition home or self-care (01) ==
LOC: ED 20:03
DX: M25.50 Pain in unspecified joint (principal); F14.10 Cocaine abuse, uncomplicated; F17.200 Nicotine dependence, unspecified, uncomplicated
CPT/HCPCS: 36415; 80053; 80306; 81003; 81025; 85025; 85651; 86038; 86140; 86200; 86430; 99283; A9270; J7512; 81001; 87086

== ENCOUNTER 2021-05-26 22:36 | Emergency (ER) | payer MEDICAID ==
[2021-05-26 23:05] VITALS: BP 128/71
--- NOTE | 2021-05-27 00:34 | ED Physician Documentation ---
History of Present Illness - Stated complaint Stated Complaint: COUGH,CONGESTION,FATIGUE - Chief complaint Chief Complaint: General - History obtained from History obtained from: Patient - History of Present Illness Timing: How many days ago (4) - Additonal information Additional information: 40-year-old female has developed some spotting and cramping breast tenderness and she is concerned that she might be . She has had these symptoms previously she is requesting a quantitative hCG. She also has been exposed to her daughter who has been exposed to Covid and has had a negative test she is requesting Covid testing for her and her other daughter. Review of Systems Constitutional: denies: Fever, Chills Eyes: denies: Decreased vision Ears: denies: Ear pain Nose: reports: Rhinorrhea / runny nose, Congestion Throat: denies: Sore throat Cardiac: denies: Chest pain / pressure, Palpitations Respiratory: reports: Cough. denies: Dyspnea GI: denies: Abdominal Pain, Nausea, Vomiting, Diarrhea : reports: Vaginal bleeding, Other (cramping and breast tenderness). 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 HEENT: None Psych: Depression, Bipolar disorder, ADD/ADHD Musculoskeletal: None Derm: None - Past Surgical History Past Surgical History: Yes HEENT: Myringotomy (tubes), Tonsil/Adenoidectomy Derm: Other - Present Medications Home Medications: Ambulatory Orders Medication Instructions Recorded Confirmed Doxepin [SINEquan] 10 mg PO TID PRN #14 cap 01/03/21 Ivermectin 4 tab PO UD #12 tablet 01/03/21 cephALEXin [Keflex] 500 mg PO Q6H #28 cap 01/03/21 Azithromycin [Zithromax] 0 mg PO DAILY #6 tablet 03/29/21 predniSONE [Deltasone] 20 mg PO [id number] #21 tab 04/23/21 - Allergies Allergies/Adverse Reactions: Allergies Allergy/AdvReac Type Severity Reaction Status Date / Time amoxicillin AdvReac Intermediate diarrhea Verified 04/23/21 20:13 - Social History Does the pt smoke?: Yes Smoking Status: Current every day smoker Does the pt drink ETOH?: Yes Does the pt have substance abuse?: Yes - Immunizations Immunizations are current?: Yes - POLST Patient has POLST: No PD ED PE NORMAL - Vitals Vital signs reviewed: Yes (normal ) - General General: Alert and oriented X 3, No acute distress, Well developed/nourished - HEENT HEENT: Atraumatic, PERRL, EOMI - Cardiac Cardiac: RRR, No murmur - Respiratory Respiratory: No respiratory distress, Clear bilaterally - Abdomen Abdomen: Normal bowel sounds, Soft, Non tender, Non distended, No organomegaly - Back Back: No CVA TTP, No spinal TTP - Derm Derm: Normal color, Warm and dry, No rash - Extremities Extremities: No deformity, No edema - Neuro Neuro: Alert and oriented X 3, ancillary specialist 2-12 intact, No motor deficit, No sensory deficit, Normal speech Eye Opening: Spontaneous Motor: Obeys Commands Verbal: Oriented GCS Score: 15 - Psych Psych: Normal mood, Normal affect Results - Vitals Vitals: Vital Signs - 24 hr 05/26/21 22:56 Temperature 36.8 C Heart Rate 83 Respiratory 18 Rate Blood Pressure 128/71 O2 Saturation 98 Oxygen O2 Source Room air - Labs Labs: Laboratory Tests 05/26/21 23:26 HCG, Quant < 0.60 PD MEDICAL DECISION MAKING - ED course Complexity details: considered differential, d/w patient ED course: 40-year-old female with pseudocyesis has a negative quantitative hCG in her nose a swab for Covid on her concerns of exposure. Departure - Departure Disposition: 01 Home, Self Care Clinical Impression: Pseudocyesis Condition: Stable Follow-Up: BETTINA SARAH ARNP [Primary Care Provider] - Comments: Kirsten, today it appears that the symptoms you are having of are a false symptom. Follow-up with your primary care doctor. A Covid test is pending. Discharge Date/Time: 05/27/21 00:46
== END 2021-05-27 00:46 | disposition home or self-care (01) ==
LOC: ED 22:36
DX: F45.8 Other somatoform disorders (principal); Z20.822 Contact with and (suspected) exposure to COVID-19; F17.200 Nicotine dependence, unspecified, uncomplicated
CPT/HCPCS: 36415; 84702; 99282; 99283

== ENCOUNTER 2021-05-30 15:31 | Emergency (ER) | payer MEDICAID ==
[2021-05-30 16:14] LABS: BASOPHILS % (AUTO) 0.3 %; EOSINOPHILS # (AUTO) 0.4 10^3/uL (0.0-0.7); EOSINOPHILS % (AUTO) 3.6 %; HCT - HEMATOCRIT 36.1 % (37.0-47.0); LYMPHOCYTES # (AUTO) 2.6 10^3/uL (1.5-3.5); LYMPHOCYTES % (AUTO) 26.2 %; MEAN CORPUSCULAR HEMOGLOBIN 27.5 pg (27.0-31.0); MEAN CORPUSCULAR HGB CONC 33.2 g/dL (32.0-36.0); MEAN CORPUSCULAR VOLUME 82.8 fL (81.0-99.0); MONOCYTES # (AUTO) 0.7 10^3/uL (0.0-1.0); MONOCYTES % (AUTO) 6.6 %; NEUTROPHILS # (AUTO) 6.3 10^3/uL (1.5-6.6); NEUTROPHILS % (AUTO) 63.1 %; PLT - PLATELET COUNT 335 10^3/uL (130-450); RED BLOOD COUNT 4.36 10^6/uL (4.20-5.40); RED CELL DISTRIBUTION WIDTH 14.5 % (12.0-15.0); WHITE BLOOD COUNT 9.9 x10^3/uL (4.8-10.8)
[2021-05-30 16:22] LABS: ALBUMIN 3.7 g/dL (3.2-5.5); ALBUMIN/GLOBULIN RATIO 1.1 (1.0-2.2); BILIRUBIN,TOTAL 1.2 mg/dL (0.2-1.0); CALCIUM 8.5 mg/dL (8.5-10.3); CREATININE 0.7 mg/dL (0.4-1.0); POTASSIUM 3.9 mmol/L (3.5-5.0); TOTAL PROTEIN 7.1 g/dL (6.7-8.2)
--- NOTE | 2021-05-30 16:55 | ED Physician Documentation ---
PD HPI ABD PAIN - Stated complaint Stated Complaint: FEMALE - Chief complaint Chief Complaint: Abd Pain - History obtained from History obtained from: Patient - Additional information Additional information: 40-year-old woman with chronic pelvic pain, previous diagnoses of PCOS and endometriosis. Pain is been worse over the last few months and became intolerable today after an external, not internal, exam with her primary care physician. She is being referred to gynecology and has an outpatient order for an ultrasound. She is at a level 10 pain today, but no she is been to level 10 pain for the last 2-1/2 months unrelieved by heat, Tylenol, and diet and ibuprofen. She has missed periods for last couple of months but was seen here for this and found to be not . She denies vaginal discharge or bleeding. No fevers. It is associated with dyspareunia. 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 HEENT: None Psych: Depression, Bipolar disorder, ADD/ADHD Musculoskeletal: None Derm: None - Past Surgical History Past Surgical History: Yes HEENT: Myringotomy (tubes), Tonsil/Adenoidectomy Derm: Other - Present Medications Home Medications: Ambulatory Orders Medication Instructions Recorded Confirmed Acetaminophen [Tylenol] 650 mg PO Q6H PRN 05/30/21 05/30/21 Ibuprofen 400 mg PO Q6HR PRN 05/30/21 05/30/21 Meloxicam [Mobic] 7.5 mg PO BID PRN #20 tablet 05/30/21 No122/Iron/Folic Acid 1 each PO DAILY 05/30/21 05/30/21 [ Multi Tablet] - Allergies Allergies/Adverse Reactions: Allergies Allergy/AdvReac Type Severity Reaction Status Date / Time amoxicillin AdvReac Intermediate diarrhea Verified 05/30/21 15:39 - Social History Does the pt smoke?: Yes Smoking Status: Current every day smoker Does the pt drink ETOH?: Yes Does the pt have substance abuse?: Yes - Immunizations Immunizations are current?: Yes - POLST Patient has POLST: No PD ED PE NORMAL - Vitals Vital signs reviewed: Yes - General General: Alert and oriented X 3, No acute distress - Abdomen Abdomen: Normal bowel sounds, Soft, Non tender - Derm Derm: Normal color, Warm and dry - Neuro Neuro: Alert and oriented X 3, Normal speech Results - Vitals Vitals: Vital Signs - 24 hr 05/30/21 05/30/21 15:36 17:11 Temperature 36.6 C 36.7 C Heart Rate 96 84 Respiratory 16 18 Rate Blood Pressure 127/63 117/80 O2 Saturation 100 99 Oxygen O2 Source Room air - Labs Labs: Laboratory Tests 05/30/21 05/30/21 05/30/21 16:02 16:02 16:43 WBC 9.9 RBC 4.36 Hgb 12.0 Hct 36.1 L MCV 82.8 MCH 27.5 MCHC 33.2 RDW 14.5 Plt Count 335 MPV 10.0 Neut # (Auto) 6.3 Lymph # (Auto) 2.6 [place] # (Auto) 0.7 Eos # (Auto) 0.4 Baso # (Auto) 0.0 Absolute Nucleated RBC 0.00 Nucleated RBC % 0.0 Sodium 138 Potassium 3.9 Chloride 104 Carbon Dioxide 23 Anion Gap 11.0 BUN 14 Creatinine 0.7 Estimated GFR (MDRD) 92 Glucose 118 H Calcium 8.5 Total Bilirubin 1.2 H AST 19 ALT 21 Alkaline Phosphatase 64 Total Protein 7.1 Albumin 3.7 Globulin 3.4 Albumin/Globulin Ratio 1.1 Lipase 29 Urine Color YELLOW Urine Clarity CLEAR Urine pH 7.0 Ur Specific [place] 1.020 Urine Protein TRACE Urine Glucose (UA) NEGATIVE Urine Ketones NEGATIVE Urine Occult Blood NEGATIVE Urine Nitrite NEGATIVE Urine Bilirubin NEGATIVE Urine Urobilinogen 0.2 (NORMAL) Ur Leukocyte Esterase NEGATIVE Ur Microscopic Review NOT INDICATED Urine Culture Comments NOT INDICATED Urine HCG, Qual NEGATIVE Urine Opiates Screen NEGATIVE Ur Oxycodone Screen NEGATIVE Urine Methadone Screen NEGATIVE Ur Propoxyphene Screen NEGATIVE Ur Barbiturates Screen NEGATIVE Ur Tricyclics Screen NEGATIVE Ur Phencyclidine Scrn NEGATIVE Ur Amphetamine Screen NEGATIVE U Methamphetamines Scrn NEGATIVE U Benzodiazepines Scrn NEGATIVE Urine Cocaine Screen NEGATIVE U Cannabinoids Screen POSITIVE H PD MEDICAL DECISION MAKING - ED course ED course: 40-year-old woman with an exacerbation of chronic pelvic pain. Not . Ultrasound and lab work done and relevant for heterogenous uterus with no evidence of PCOS which was her prior diagnosis. She was given a copy of her ultrasound read and Toradol here which was helpful. Departure - Departure Disposition: 01 Home, Self Care Clinical Impression: Pelvic pain Condition: Good Record reviewed to determine appropriate education?: Yes Instructions: ED Pelvic Pain [facility] Prescriptions: Meloxicam [Mobic] 7.5 mg PO BID PRN #20 tablet PRN Reason: Pain Comments: Follow-up with gynecology as you are already planning to do, take the copy the ultrasound with you for that appointment. Return for new or worsening symptoms.
[2021-05-30 17:22] LABS: MUDS CUTOFF CONCENTRATIONS CUTOFF CONC BELOW:
[2021-05-30 17:25] LABS: BILIRUBIN,URINE NEGATIVE (NEGATIVE); GLUCOSE, URINE (UA) NEGATIVE (NEGATIVE); KETONES,URINE (UA) NEGATIVE (NEGATIVE); LEUKOCYTE ESTERASE, URINE NEGATIVE (NEGATIVE); NITRITE,URINE NEGATIVE (NEGATIVE); OCCULT BLOOD,URINE NEGATIVE (NEGATIVE); PROTEIN,URINE TRACE mg/dL (NEGATIVE); UROBILINOGEN,URINE 0.2 (NORMAL) E.U./dL (NORMAL)
[2021-05-30 17:32] LABS: CLARITY,URINE CLEAR (CLEAR); HCG UR QUAL NEGATIVE
[2021-05-30 17:36] LABS: AMPHETAMINE SCREEN,URINE NEGATIVE (NEGATIVE); BARBITURATE SCREEN,UR NEGATIVE (NEGATIVE); BENZODIAZEPINES SCREEN, URINE NEGATIVE (NEGATIVE); COCAINE SCREEN URINE NEGATIVE (NEGATIVE); METHADONE SCREEN, URINE NEGATIVE (NEGATIVE); METHAMPHETAMINES SCREEN, URINE NEGATIVE (NEGATIVE); OPIATE SCREEN, URINE NEGATIVE (NEGATIVE); OXYCODONE SCREEN, URINE NEGATIVE (NEGATIVE); PROPOXYPHENE SCREEN, URINE NEGATIVE (NEGATIVE); THC CANNABINOID SCREEN, URINE POSITIVE (NEGATIVE); TRICYCLIC ANTIDEPRESSANT,URINE NEGATIVE (NEGATIVE)
[2021-05-30] MEDS ORDERED: KETOROLAC 60 MG/2 ML VIAL IM STA (17:52)
--- NOTE | 2021-05-30 18:24 | Ultrasound Report ---
PROCEDURE: Pelvic w/Transvag+Doppler Comp INDICATIONS: pelvic pain TECHNIQUE: Real-time scanning was performed of the pelvic organs, with image documentation. Additional endovagi nal scanning was necessary due to incomplete visualization of the adnexal and endometrial structures by transabdominal scanning. COMPARISON: Ultrasound pelvis 12/21/2019. FINDINGS: No pathologic free abdominal or pelvic fluid. Uterus: The uterus is anteverted and measures 9.9 x 5.3 x 6.3 cm. The myometrium is heterogeneous in appearance without a discrete fibroid identified. The endometrium measures up to 0.9 cm in thickness . There are small nabothian cysts noted. Ovaries: The right ovary measures 4.9 x 2.2 x 2.6 cm with a volume of 15 mL. The left ovary measures 3 x 1.8 x 2.2 cm with a volume of 6.1 mL. There are scattered small follicles. No discrete adnexal m asses. There is patent arterial and venous flow demonstrated within the ovaries. IMPRESSION: 1. Ovaries appear within normal limits without evidence of torsion at this time. 2. Heterogeneous appearance of the myometrium without discrete fibroid identified. Reviewed by: Aly Obrien MD on 05/30/2021 6:22 PM PST Approved by: Aly Obrien MD on 05/30/2021 6:22 PM PST Station ID: [id number]
[2021-05-30 18:48] VITALS: BP 96/84
== END 2021-05-30 18:53 | disposition home or self-care (01) ==
LOC: ED 15:31
DX: R10.2 Pelvic and perineal pain (principal); G89.29 Other chronic pain; N85.8 Other specified noninflammatory disorders of uterus; F17.200 Nicotine dependence, unspecified, uncomplicated
CPT/HCPCS: 36415; 80053; 80306; 81001; 81003; 81025; 83690; 85025; 87086; 93975; 96372; 99283; 99284

== ENCOUNTER 2021-06-01 23:21 | Emergency (ER) | payer MEDICAID ==
[2021-06-01 23:43] VITALS: BP 127/56
[2021-06-02] MEDS ORDERED: KETOROLAC 30 MG/ML VIAL IM STA (00:04)
--- NOTE | 2021-06-02 00:09 | ED Physician Documentation ---
History of Present Illness - Stated complaint Stated Complaint: L LEG & FT SWOLLEN - Chief complaint Chief Complaint: Ext Problem - History obtained from History obtained from: Patient - Additonal information Additional information: 40yF with pmh bipolar, polyarthritis, cocaine abuse, p/w L foot pain and swelling that has been ongoing but worsened today. patient has had issues with swelling in both feet but the R foot improved and the L foot has not resolved and is now a/w pain to anterior foot radiating to ankle and up leg. denies trauma. endorses prior issue with arthritis in feet and ankles. she also recently started mobic and is concerned this is a medication side effect. 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 : None HEENT: None Psych: Depression, Bipolar disorder, ADD/ADHD Musculoskeletal: None Derm: None - Past Surgical History Past Surgical History: Yes General: Cholecystectomy HEENT: Myringotomy (tubes), Tonsil/Adenoidectomy Derm: Other - Present Medications Home Medications: Ambulatory Orders Medication Instructions Recorded Confirmed Acetaminophen [Tylenol] 650 mg PO Q6H PRN 05/30/21 05/30/21 Ibuprofen 400 mg PO Q6HR PRN 05/30/21 05/30/21 Meloxicam [Mobic] 7.5 mg PO BID PRN #20 tablet 05/30/21 No122/Iron/Folic Acid 1 each PO DAILY 05/30/21 05/30/21 [ Multi Tablet] - Allergies Allergies/Adverse Reactions: Allergies Allergy/AdvReac Type Severity Reaction Status Date / Time amoxicillin AdvReac Intermediate diarrhea Verified 06/01/21 23:42 - Social History Does the pt smoke?: Yes Smoking Status: Current every day smoker Does the pt drink ETOH?: Yes Does the pt have substance abuse?: Yes - Immunizations Immunizations are current?: Yes - POLST Patient has POLST: No PD ED PE NORMAL - Vitals Vital signs reviewed: Yes - General General: Alert and oriented X 3, No acute distress, Well developed/nourished - Derm Derm: Normal color, Warm and dry - Extremities Extremities: No deformity, Other (FROM L ankle with discomfort. no bony ttp. 1+ swelling noted to L anterior foot. no calf sweling or ttp. 2+ BP DP pulses. normal sensation distal LLE) - Neuro Neuro: Alert and oriented X 3, No motor deficit, No sensory deficit - Psych Psych: Normal mood, Normal affect Results - Vitals Vitals: Vital Signs - 24 hr 06/01/21 23:42 Temperature 36.6 C Heart Rate 80 Respiratory 16 Rate Blood Pressure 127/56 L O2 Saturation 100 Oxygen O2 Source Room air PD MEDICAL DECISION MAKING - ED course ED course: 40yF with pmh polyarthritis p/w BL foot swelling, worse on the L > R today. Marilee ryan also has pain radiating upward but has no risk factors for DVT (no hx of clots, no bedrest, hormones, surgeries, travel, etc.) . no recent trauma. she has had relief with toradol in the past for similar pain episodes therefore I will give that and advise to continue home mobic regimen, which is unlikely to be cause of symptoms but rather may help. plan to f/u with her upcoming rheumatology appointment in June. return precautions discussed. Departure - Departure Disposition: 01 Home, Self Care Clinical Impression: Foot swelling Condition: Good Instructions: ED MARQUITA Comments: You were seen in the emergency department for foot and ankle swelling. You should follow up with your library consultant for your appointment, since this may be related to your polyarthritis. Please return to the emergency department if you have new or worsening symptoms or other concerns.
== END 2021-06-02 00:18 | disposition home or self-care (01) ==
LOC: ED 23:21
DX: R22.42 Localized swelling, mass and lump, left lower limb (principal); F17.200 Nicotine dependence, unspecified, uncomplicated
CPT/HCPCS: 96372; 99283

== ENCOUNTER 2021-06-04 14:45 | Emergency (ER) | payer MEDICAID ==
[2021-06-04 14:56] VITALS: BP 116/68
[2021-06-04] MEDS ORDERED: DEXAMETHASONE 10 MG/ML VIAL PO STA (15:33)
[2021-06-04] MEDS ORDERED: CHERRY SYRUP 10 ML UDC PO ONE (15:33)
[2021-06-04] MEDS ORDERED: tiZANidine 4 MG TABLET PO STA (15:33)
[2021-06-04] MEDS ORDERED: ACETAMINOPHEN 325 MG TABLET PO STA (15:34)
--- NOTE | 2021-06-04 15:40 | ED Physician Documentation ---
PD HPI LOWER EXT INJURY - Stated complaint Stated Complaint: JOINT PX - Chief complaint Chief Complaint: General - History obtained from History obtained from: Patient - History of Present Illness PD HPI LOW EXT INJURY LOCATION: Right, Knee Type of injury: No: Fall, Twist Timing - onset: Chronic (Patient states she has had pains in joints for many months at least. She states she has had some blood tests evaluating for rheumatoid. She has a referral to a radiation therapy technician through her primary care next month.) Timing - details: Gradual onset, Waxing and waning Worsened by: Moving, Palpating Associated symptoms: No: Numbness, Swelling (generally no swelling, except had some of left foot couple weeks ago.) Similar symptoms before: No diagnosis Review of Systems Constitutional: denies: Fever, Chills Nose: denies: Rhinorrhea / runny nose, Congestion Throat: denies: Sore throat Respiratory: denies: Cough Neurologic: reports: Generalized weakness. 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 : None HEENT: None Psych: Depression, Bipolar disorder, ADD/ADHD Musculoskeletal: None Derm: None - Past Surgical History Past Surgical History: Yes General: Cholecystectomy HEENT: Myringotomy (tubes), Tonsil/Adenoidectomy Derm: Other - Present Medications Home Medications: Ambulatory Orders Medication Instructions Recorded Confirmed Acetaminophen [Tylenol] 650 mg PO Q6H PRN 05/30/21 05/30/21 Ibuprofen 400 mg PO Q6HR PRN 05/30/21 05/30/21 Meloxicam [Mobic] 7.5 mg PO BID PRN #20 tablet 05/30/21 No122/Iron/Folic Acid 1 each PO DAILY 05/30/21 05/30/21 [ Multi Tablet] Acetaminophen [Acetaminophen Extra 500 mg PO QID PRN #50 tablet 06/04/21 Strength] dexAMETHasone [Decadron] 4 mg PO DAILY #7 tablet 06/04/21 tiZANidine [Zanaflex] 4 mg PO Q6H PRN #28 tablet 06/04/21 - Allergies Allergies/Adverse Reactions: Allergies Allergy/AdvReac Type Severity Reaction Status Date / Time amoxicillin AdvReac Intermediate diarrhea Verified 06/04/21 14:55 - Social History Does the pt smoke?: Yes Smoking Status: Current every day smoker Does the pt drink ETOH?: Yes Does the pt have substance abuse?: Yes - Immunizations Immunizations are current?: Yes - POLST Patient has POLST: No PD ED PE NORMAL - Vitals Vital signs reviewed: Yes - General General: Alert and oriented X 3, Well developed/nourished - Neck Neck: Supple, no meningeal sign, No adenopathy - Derm Derm: Normal color, Warm and dry - Extremities Extremities: Other (Brief inspection of ankles knees wrists and elbows do not show any redness no joint effusions.) - Neuro Neuro: Alert and oriented X 3, No motor deficit, Normal speech Results - Vitals Vitals: Vital Signs - 24 hr 06/04/21 14:52 Temperature 36.8 C Heart Rate 88 Respiratory 16 Rate Blood Pressure 116/68 O2 Saturation 100 Oxygen O2 Source Room air PD MEDICAL DECISION MAKING - ED course Complexity details: reviewed old records, considered differential (Patient with reported history of chronic polyarthralgias and myalgias here because of ongoing pain. Review of prior charts have shown attempts with NSAIDs and Tylenol. She states she had some improvement with steroid dosing a couple of months ago. She agrees to trying that with the muscle relaxan), d/w patient Departure - Departure Disposition: 01 Home, Self Care Clinical Impression: Polyarthralgia Condition: Stable Record reviewed to determine appropriate education?: Yes Follow-Up: BETTINA SARAH ARNP [Primary Care Provider] - Prescriptions: Acetaminophen [Acetaminophen Extra Strength] 500 mg PO QID PRN #50 tablet PRN Reason: Pain dexAMETHasone [Decadron] 4 mg PO DAILY #7 tablet tiZANidine [Zanaflex] 4 mg PO Q6H PRN #28 tablet PRN Reason: Spasms Comments: Continue the Meloxicam. Add Decadron steroid daily for a week. Be sure to take with food so to not bother your stomach. Add Tizanidine muscle relaxant as directed as there sounds like some muscular/spasm component to your symptoms. Add Tylenol 4 times regularly for pain. Follow up with your primary care regarding further testing in preparation for seeing the radiation therapy technician, such as screening tests for rheumatoid, lupus, muscle inflammatory conditions. I transmitted your prescriptions to [facility] pharmacy in [place]. Discharge Date/Time: 06/04/21 15:48
== END 2021-06-04 15:48 | disposition home or self-care (01) ==
LOC: ED 14:45
DX: M25.561 Pain in right knee (principal); F17.200 Nicotine dependence, unspecified, uncomplicated
CPT/HCPCS: 99283; A9270

== ENCOUNTER 2022-08-10 12:41 | Outpatient (CLI) | payer MEDICAID | END 2022-08-10 12:42 | disposition EMS.NT | LOC: EMS 12:41 | DX: R45.851 Suicidal ideations (principal); F32.A Depression, unspecified; Z59.89 Other problems related to housing and economic circumstances ==

== ENCOUNTER 2022-08-28 13:51 | Outpatient (CLI) | payer MEDICAID | END 2022-08-28 13:52 | disposition critical access hospital (66) | LOC: EMS 13:51 | DX: R45.851 Suicidal ideations (principal); Z59.89 Other problems related to housing and economic circumstances; Z63.8 Other specified problems related to primary support group | CPT/HCPCS: A0425; A0429; A0999 ==

== ENCOUNTER 2022-08-28 14:13 | Emergency (ER) | payer MEDICAID ==
[2022-08-28] MEDS ORDERED: SODIUM CHLORIDE 0.9% 1,000 ML IV STA (14:50)
--- NOTE | 2022-08-28 14:52 | ED Physician Documentation ---
PD HPI MHE - Stated complaint Stated Complaint: MHE/SI - Chief complaint Chief Complaint: MHE - History obtained from History obtained from: Patient, EMS - Additional information Additional information: The patient is brought to the emergency department for chief complaint of suicidal ideation and taking extra of her hydroxyzine. The patient states that she took 1 tablet of hydroxyzine at 8:00 this morning and then a couple of hours later, took 4 more of her 25 mg tablets. Around 1300 this afternoon the patient took another 4 tablets. She states she feels shaky inside but also feels somewhat drowsy. She denies any nausea or vomiting. She did not take any other substances today. She does use cocaine as her drug of choice but last use was August 15, right after she was discharged from [facility]. The patient states that she has been feeling depressed because Neither of her children were talked to her and she believes that her is going to try to get sole custody of them. She states they are 12 and 17. The patient currently has a boyfriend and states she is willing to break-up with her boyfriend in order to keep her children, but she thinks that will not be enough. The patient has a history of suicidal ideation and attempts previously and was admitted to [facility] On August 10. She states she left on August 15 because she did not want to be there anymore and immediately went out and found some cocaine and used. However, she has stayed off the cocaine since because she really does not want to take it. The patient states she does not feel safe with herself at home and that is why she has come here. 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 : None HEENT: None Psych: Depression, Bipolar disorder, ADD/ADHD Musculoskeletal: None Derm: None - Past Surgical History Past Surgical History: Yes General: Cholecystectomy HEENT: Myringotomy (tubes), Tonsil/Adenoidectomy Derm: Other - Present Medications Home Medications: Ambulatory Orders Medication Instructions Recorded Confirmed Gabapentin [Neurontin] 100 mg PO TID 08/28/22 08/28/22 QUEtiapine [SEROquel] 100 mg PO QPM 08/28/22 08/28/22 Trazodone HCl 100 mg PO HS 08/28/22 08/28/22 hydrOXYzine PAMOATE [Vistaril] 25 mg PO Q6H 08/28/22 08/28/22 lamoTRIgine [LaMICtal] 100 mg PO DAILY 08/28/22 08/28/22 - Allergies Allergies/Adverse Reactions: Allergies Allergy/AdvReac Type Severity Reaction Status Date / Time amoxicillin AdvReac Intermediate diarrhea Verified 08/28/22 14:24 nortriptyline AdvReac Unknown Verified 08/28/22 14:24 - Social History Does the pt smoke?: Yes Smoking Status: Current every day smoker Does the pt drink ETOH?: Yes Does the pt have substance abuse?: Yes - Immunizations Immunizations are current?: Yes - POLST Patient has POLST: No PD ED PE NORMAL - Vitals Vital signs reviewed: Yes - General General: Alert and oriented X 3, No acute distress, Well developed/nourished - HEENT HEENT: Atraumatic, PERRL, EOMI, Moist mucous membranes - Neck Neck: Supple, no meningeal sign - Cardiac Cardiac: RRR, No murmur, Strong equal pulses - Respiratory Respiratory: No respiratory distress, Clear bilaterally - Abdomen Abdomen: Soft, Non tender, Non distended - Derm Derm: Normal color, Warm and dry, No rash - Extremities Extremities: No deformity, No edema - Neuro Neuro: Alert and oriented X 3, grocery caddy 2-12 intact, Normal speech, Other (Grossly intact) - Psych Psych: Normal mood, Normal affect (The patient is actually quite animated and conversant, and when asked if she is suicidal, states "Yep, I want to !") Results - Vitals Vitals: Vital Signs - 24 hr 08/28/22 08/28/22 14:24 15:00 Temperature 37.1 C Heart Rate 102 H 70 Respiratory 16 16 Rate Blood Pressure 116/73 123/100 H O2 Saturation 98 98 Oxygen O2 Source Room air - Labs Labs: Laboratory Tests 08/28/22 08/28/22 08/28/22 14:45 14:45 14:45 WBC 9.4 RBC 4.37 Hgb 12.2 Hct 37.5 MCV 85.8 MCH 27.9 MCHC 32.5 RDW 15.1 H Plt Count 281 MPV 10.1 Neut # (Auto) 5.1 Lymph # (Auto) 2.9 Sublette # (Auto) 0.6 Eos # (Auto) 0.7 Baso # (Auto) 0.1 Absolute Nucleated RBC 0.00 Nucleated RBC % 0.0 Sodium 140 Potassium 3.4 L Chloride 105 Carbon Dioxide 24 Anion Gap 11.0 BUN 14 Creatinine 0.8 Estimated GFR (MDRD) 78 L Glucose 88 Calcium 8.2 L Total Bilirubin 0.5 AST 21 ALT 26 Alkaline Phosphatase 76 Total Protein 7.4 Albumin 3.8 Globulin 3.6 Albumin/Globulin Ratio 1.1 Lipase 24 TSH 4.50 Salicylates < 6.0 Urine Opiates Screen Ur Oxycodone Screen Urine Methadone Screen Ur Propoxyphene Screen Acetaminophen < 10 L Ur Barbiturates Screen Ur Tricyclics Screen Ur Phencyclidine Scrn Ur Amphetamine Screen U Methamphetamines Scrn U Benzodiazepines Scrn Urine Cocaine Screen U Cannabinoids Screen Ethyl Alcohol < 5.0 08/28/22 14:45 WBC RBC Hgb Hct MCV MCH MCHC RDW Plt Count MPV Neut # (Auto) Lymph # (Auto) Sublette # (Auto) Eos # (Auto) Baso # (Auto) Absolute Nucleated RBC Nucleated RBC % Sodium Potassium Chloride Carbon Dioxide Anion Gap BUN Creatinine Estimated GFR (MDRD) Glucose Calcium Total Bilirubin AST ALT Alkaline Phosphatase Total Protein Albumin Globulin Albumin/Globulin Ratio Lipase TSH Salicylates Urine Opiates Screen NEGATIVE Ur Oxycodone Screen NEGATIVE Urine Methadone Screen NEGATIVE Ur Propoxyphene Screen NEGATIVE Acetaminophen Ur Barbiturates Screen POSITIVE H Ur Tricyclics Screen POSITIVE H Ur Phencyclidine Scrn NEGATIVE Ur Amphetamine Screen NEGATIVE U Methamphetamines Scrn NEGATIVE U Benzodiazepines Scrn NEGATIVE Urine Cocaine Screen NEGATIVE U Cannabinoids Screen POSITIVE H Ethyl Alcohol PD Medical Decision Making - ED course Complexity details: reviewed old records, reviewed results, re-evaluated patient, considered differential, d/w patient ED course: The patient had a history of depression and suicidal ideation and had recently been admitted to [facility]. She also had a longstanding history of substance abuse including cocaine, alcohol, and marijuana with her drug of choice being cocaine. The patient was high risk from a mental health standpoint, but did see m oddly cheerful in the emergency department and was very brisk and copy chief in her responses, even when asked if she was suicidal. Nonetheless, since the patient has reported suicidal ideation and has a history of this with attempts and inpatient stays previously, we we will work her up from a mental health standpoint with the goal of medical clearance and mental health evaluation. Poison control has stated that the patient will be medically clear around 1700, assuming she remains stable. We will plan to have telepsych consulted when she is medically clear for further evaluation. At this point in time, the patient is very much voluntary. The patient was signed out to the oncoming emergency physician, pending mental health eval and disposition.
[2022-08-28 14:54] LABS: MUDS CUTOFF CONCENTRATIONS CUTOFF CONC BELOW:
[2022-08-28 14:56] LABS: BASOPHILS # (AUTO) 0.1 10^3/uL (0.0-0.1); BASOPHILS % (AUTO) 0.5 %; EOSINOPHILS # (AUTO) 0.7 10^3/uL (0.0-0.7); EOSINOPHILS % (AUTO) 7.7 %; HCT - HEMATOCRIT 37.5 % (37.0-47.0); HGB - HEMOGLOBIN 12.2 g/dL (12.0-16.0); LYMPHOCYTES # (AUTO) 2.9 10^3/uL (1.5-3.5); LYMPHOCYTES % (AUTO) 31.2 %; MEAN CORPUSCULAR HEMOGLOBIN 27.9 pg (27.0-31.0); MEAN CORPUSCULAR HGB CONC 32.5 g/dL (32.0-36.0); MEAN CORPUSCULAR VOLUME 85.8 fL (81.0-99.0); MEAN PLATELET VOLUME 10.1 fL (7.9-10.8); MONOCYTES # (AUTO) 0.6 10^3/uL (0.0-1.0); MONOCYTES % (AUTO) 5.8 %; NEUTROPHILS # (AUTO) 5.1 10^3/uL (1.5-6.6); NEUTROPHILS % (AUTO) 54.6 %; PLT - PLATELET COUNT 281 10^3/uL (130-450); RED BLOOD COUNT 4.37 10^6/uL (4.20-5.40); RED CELL DISTRIBUTION WIDTH 15.1 % (12.0-15.0); WHITE BLOOD COUNT 9.4 x10^3/uL (4.8-10.8)
--- OUTSIDE RECORDS SUMMARY | 2022-08-28 14:57 | EXTERNAL MEDICAL SUMMARY RPT | Continuity of Care Document ---
:1980 Author Organization [place] Address [address] [place] [address] Phone Care Team Providers Name Role Phone Mari Skinner Unavailable Unavailable Allergies and Intolerances date description facility type (no date) [facility] (unknown) (no date) amoxicillin [facility] (unknown) Encounters No information. Functional Status No information. Immunizations No information. Medications date description facility 2022-08-21 00:00 Lamotrigine [facility] 2022-07-05 00:00 Zzxofijkba-Hqclpwahfzyhz-Dbie [facility] 2022-08-01 00:00 Ilszwymaei-Scjnofkfauaqp-Cfqm [facility] 2022-08-21 00:00 Gabapentin [facility]22-08-20 [facility]08[facility]21 [facility]:00 [facility]22-08-21 [facility]:00 Dulox[facility] 2022-07-17 00:00 [facility] 2022-07-05 00:00 [facility] 2022-08-21 00:00 Dextroamphetamine-Amphetamine [facility] 2022-06-28 00:00 Dextroamphetamine-Amphetamine [facility] 2022-08-01 00:00 Dextroamphetamine-Amphetamine [facility] 2022-08-21 00:00 Dextroamphetamine-Amphetamine [facility] 2022-08-20 00:00 Hydroxyzine [facility]21 [facility] date description facility 2022-08-10 00:00 Suicidal ideation [facility] Procedures No information. Results/Labs test date author facility value unit interpret ation Result panel 1 (unknown) (no date[facility] ([facility]) Result panel 2 (unknown) (no date) (unknown[facility]) Result panel 3 (unknown) (no date) (unknown[facility]) Result panel 4 (unknown) (no date) (unknown[facility]) Result panel 5 (unknown) (no date) (unknown[facility]) Result panel 6 (unknown) (no date) (unknown[facility]) Result panel 7 (unknown) (no date) (unknown[facility]) Result panel 8 (unknown) (no date) (unknown[facility]) Result panel 9 (unknown) (no date) (unknown[facility]) Result panel 10 (unknown) (no date) (unknown[facility]) Result panel 11 (unknown) (no date) (unknown[facility]) Result panel 12 (unknown) (no date) (unknown[facility]) Result panel 13 (unknown) (no date) (unknown[facility]) Result panel 14 (unknown) (no date) (unknown[facility]) Result panel 15 (unknown) (no date) (unknown[facility]) Result panel 16 (unknown) (no date) (unknown[facility]) Result panel 17 (unknown) (no date) (unknown[facility]) Result panel 18 (unknown) (no date) (unknown[facility]) Result panel 19 (unknown) (no date) (unknown[facility]) Result panel 20 (unknown) (no date) (unknown[facility]) Result panel 21 (unknown) (no date) (unknown[facility]) Result panel 22 (unknown) (no date) (unknown[facility]) Result panel 23 (unknown) (no date) (unknown[facility]) Result panel 24 (unknown) (no date) (unknown[facility]) Result panel 25 (unknown) (no date) (unknown[facility]) Result panel 26 (unknown) (no date) (unknown[facility]) Result panel 27 (unknown) (no date) (unknown[facility]) Result panel 28 (unknown) (no date) (unknown[facility]) Result panel 29 (unknown) (no date) (unknown[facility]) Result panel 30 (unknown) (no date) (unknown[facility]) Result panel 31 (unknown) (no date) (unknown[facility]) Result panel 32 (unknown) (no date) (unknown[facility]) Result panel 33 (unknown) (no date) (unknown[facility]) Result panel 34 (unknown) (no date) (unknown) [facility]) Result panel 35 (unknown) (no date) (unknown[facility]) Result panel 36 (unknown) (no date) (unknown[facility]) Result panel 37 (unknown) (no date) (unknown[facility]) Result panel 38 (unknown) (no date) (unknown) [facility]) Result panel 39 (unknown) (no date) (unknown) [facility]) Result panel 40 (unknown) (no date) (unknown) [facility]) Result panel 41 (unknown) (no date) (unknown) [facility]) Result panel 42 (unknown) (no date) (unknown) [facility]) Result panel 43 (unknown) (no date) (unknown) [facility]) Result panel 44 (unknown) (no date) (unknown) [facility]) Result panel 45 (unknown) (no date) (unknown[facility]) Result panel 46 (unknown) (no date) (unknown) [facility]) Result panel 47 (unknown) (no date) (unknown) [facility]) Result panel 48 (unknown) (no date) (unknown[facility]) Result panel 49 (unknown) (no date) (unknown) [facility]) Result panel 50 (unknown) (no date) (unknown[facility]) Result panel 51 (unknown) (no date) (unknown) [facility]) Result panel 52 (unknown) (no date) (unknown) [facility]) Result panel 53 (unknown) (no date) (unknown) [facility]) Result panel 54 (unknown) (no date) (unknown) [facility]) Result panel 55 (unknown) (no date) (unknown) [facility]) Result panel 56 (unknown) (no date) (unknown) [facility]) Result panel 57 (unknown) (no date) (unknown) [facility]) Result panel 58 (unknown) (no date) (unknown) [facility]) Result panel 59 (unknown) (no date) (unknown[facility]) Result panel 60 (unknown) (no date) (unknown) [facility]) Result panel 61 (unknown) (no date) (unknown) [facility]) Result panel 62 (unknown) (no date) (unknown) [facility]) Result panel 63 (unknown) (no date) (unknown) [facility]) Result panel 64 (unknown) (no date) (unknown) [facility]) Result panel 65 (unknown) (no date) (unknown) [facility]) Result panel 66 (unknown) (no date) (unknown) [facility]) Result panel 67 (unknown) (no date) (unknown) [facility]) Result panel 68 (unknown) (no date) (unknown) [facility]) Result panel 69 (unknown) (no date) (unknown) [facility]) Result panel 70 (unknown) (no date) (unknown) [facility]) Result panel 71 (unknown) (no date) (unknown) [facility]) Result panel 72 (unknown) (no date) (unknown) [facility]) Result panel 73 (unknown) (no date) (unknown) [facility]) Result panel 74 (unknown) (no date) (unknown) [facility]) Result panel 75 (unknown) (no date) (unknown) [facility]) Result panel 76 (unknown) (no date) (unknown) [facility]) Result panel 77 (unknown) (no date) (unknown) [facility]) Result panel 78 (unknown) (no date) (unknown) [facility]) Result panel 79 (unknown) (no date) (unknown) [facility]) Result panel 80 (unknown) (no date) (unknown) [facility]) Result panel 81 (unknown) (no date) (unknown) [facility]) Result panel 82 (unknown) (no date) (unknown) [facility]) Result panel 83 (unknown) (no date) (unknown) [facility]) Result panel 84 (unknown) (no date) (unknown) [facility]) Result panel 85 (unknown) (no date) (unknown[facility]) Result panel 86 (unknown) (no (unknown) (unknown) (no value) (units (unk nown) date) unknown) (unknown) (no (unknown) (unknown) 07/05/22 (units (unkno wn) date) unknown) (unknown) (no (unknown) (unknown) [id number] (units (unkno wn) date) unknown) (unknown) (no (unknown) (unknown) 41F presents via (units (unknown) date) v-see telehealth unknown) to follow up about her medications and the (unknown) (no (unknown) (unknown) ADHD () (units (u nknown) date) unknown) (unknown) (no (unknown) (unknown) Abnormal Pap (units (u nknown) date) smear of cervix unknown) () (unknown) (no (unknown) (unknown) Age/Sex: 41 / F (units (unknown) date) Date of Service: unknown) (unknown) (no (unknown) (unknown) Allergies (units (unkn own) date) () unknown) (unknown) (no (unknown) (unknown) Allergies (units (unkn own) date) unknown) (unknown) (no (unknown) (unknown) [place], [place] (units ( unknown) date) [id number] unknown) (unknown) (no (unknown) (unknown) Anesthesia (units (unk nown) date) unknown) (unknown) (no (unknown) (unknown) Anxiety (-2002) (units (unknown) date) unknown) (unknown) (no (unknown) (unknown) Attending Dr: (units ( unknown) date) Mari DONG unknown) (unknown) (no (unknown) (unknown) Back pain at (units (u nknown) date) L4-L5 level unknown) () (unknown) (no (unknown) (unknown) Biliary colic (units ( unknown) date) unknown) (unknown) (no (unknown) (unknown) Chicken pox (units (un known) date) () unknown) (unknown) (no (unknown) (unknown) Chief Complaint (units (unknown) date) unknown) (unknown) (no (unknown) (unknown) Chief Complaint: (units (unknown) date) Review unknown) medications, c/o tremulousness (unknown) (no (unknown) (unknown) Chronic hip (units (un known) date) pain, bilateral unknown) (unknown) (no (unknown) (unknown) Chronic right (units ( unknown) date) hip pain unknown) (unknown) (no (unknown) (unknown) Colon polyps (units (u nknown) date) () unknown) (unknown) (no (unknown) (unknown) : 1980 (units (unknown) date) Acct:[id number] unknown) (unknown) (no (unknown) (unknown) Depression (units (unk nown) date) (-2002) unknown) (unknown) (no (unknown) (unknown) Dept at (units (unkno wn) date) . unknown) (unknown) (no (unknown) (unknown) Details: (units (unkno wn) date) unknown) (unknown) (no (unknown) (unknown) Diabetes (units (unkno wn) date) mellitus unknown) (unknown) (no (unknown) (unknown) Diarrhea (units (unkno wn) date) unknown) (unknown) (no (unknown) (unknown) Documented By: (units (unknown) date) Mari Skinner unknown) 07/05/22 0906 (unknown) (no (unknown) (unknown) Draft (units (unkno wn) date) unknown) (unknown) (no (unknown) (unknown) Effexor Adverse (units (unknown) date) Reaction (Mild, unknown) Uncoded 04/10/22 12:15) (unknown) (no (unknown) (unknown) Fall (units (unkno wn) date) unknown) (unknown) (no (unknown) (unknown) Family History (units (unknown) date) (Reviewed unknown) 04/10/22 @ 17:34 by IKER Ying) (unknown) (no (unknown) (unknown) Family Practice (units (unknown) date) Office Visit unknown) (unknown) (no (unknown) (unknown) Father (units (unknown) date) Cancer unknown) (unknown) (no (unknown) (unknown) Fibroids (-2017) (units (unknown) date) unknown) (unknown) (no (unknown) (unknown) Fibromyalgia (units (u nknown) date) unknown) (unknown) (no (unknown) (unknown) [facility] unknown) (unknown) (no (unknown) (unknown) Forgetfulness (units ( unknown) date) unknown) (unknown) (no (unknown) (unknown) Grandfather Lung (units (unknown) date) cancer unknown) (unknown) (no (unknown) (unknown) Grandmother (units (un known) date) Cancer unknown) (unknown) (no (unknown) (unknown) HPI (units (unkno wn) date) unknown) (unknown) (no (unknown) (unknown) Heavy menstrual (units (unknown) date) period unknown) (unknown) (no (unknown) (unknown) History of (units (unk nown) date) bipolar disorder unknown) (unknown) (no (unknown) (unknown) History of heart (units (unknown) date) disease unknown) (unknown) (no (unknown) (unknown) History of (units (unk nown) date) placement of ear unknown) tubes (-02/08/86) (unknown) (no (unknown) (unknown) History of (units (unk nown) date) recurrent ear unknown) infection (unknown) (no (unknown) (unknown) Hypertension (units (u nknown) date) unknown) (unknown) (no (unknown) (unknown) Intake (units (unkno wn) date) unknown) (unknown) (no (unknown) (unknown) Left shoulder (units ( unknown) date) pain unknown) (unknown) (no (unknown) (unknown) Liver cancer (units (u nknown) date) unknown) (unknown) (no (unknown) (unknown) Loc: [facility] (units (unkno wn) date) unknown) (unknown) (no (unknown) (unknown) Medical History (units (unknown) date) (Reviewed unknown) 04/10/22 @ 17:34 by IKER Ying) (unknown) (no (unknown) (unknown) Mental health (units ( unknown) date) problem unknown) (unknown) (no (unknown) (unknown) Migraines (units (unkn own) date) (-1993) unknown) (unknown) (no (unknown) (unknown) Mother (units (unknown) date) Hyperlipidemia unknown) (unknown) (no (unknown) (unknown) Non-healing (units (un known) date) wound unknown) (unknown) (no (unknown) (unknown) Not currently (units ( unknown) date) unknown) (unknown) (no (unknown) (unknown) PFSH (units (unkno wn) date) unknown) (unknown) (no (unknown) (unknown) Painful (units (unkno wn) date) menstrual periods unknown) (unknown) (no (unknown) (unknown) Patient: (units (unkno wn) date) Kirsten Deng N unknown) MR#: [id number] (unknown) (no (unknown) (unknown) 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 (unknown) (no (unknown) (unknown) Reason For Visit (units (unknown) date) unknown) (unknown) (no (unknown) (unknown) Right shoulder (units (unknown) date) pain unknown) (unknown) (no (unknown) (unknown) Sciatic leg pain (units (unknown) date) unknown) (unknown) (no (unknown) (unknown) Scoliosis (units (unkn own) date) () unknown) (unknown) (no (unknown) (unknown) Signed By: (units (unk nown) date) unknown) (unknown) (no (unknown) (unknown) Skin changes of (units (unknown) date) breasts unknown) (unknown) (no (unknown) (unknown) Smoking Status: (units (unknown) date) Current some day unknown) smoker (unknown) (no (unknown) (unknown) Social History (units (unknown) date) unknown) (unknown) (no (unknown) (unknown) Surgical History (units (unknown) date) (Reviewed unknown) 04/10/22 @ 17:34 by IKER Ying) (unknown) (no (unknown) (unknown) This note may (units ( unknown) date) have been all or unknown) partially generated using voice recognition (unknown) (no (unknown) (unknown) Thyroid disease (units (unknown) date) unknown) (unknown) (no (unknown) (unknown) Tobacco + (units (unkn own) date) Substance Use unknown) (unknown) (no (unknown) (unknown) Tobacco Status (units (unknown) date) unknown) (unknown) (no (unknown) (unknown) UTI (urinary (units (u nknown) date) tract infection) unknown) (unknown) (no (unknown) (unknown) Vaginal delivery (units (unknown) date) unknown) (unknown) (no (unknown) (unknown) Visit Reasons: (units (unknown) date) VIDEO Med Review; unknown) shaky/tremors 01 (unknown) (no (unknown) (unknown) alcohol intake: (units (unknown) date) never unknown) (unknown) (no (unknown) (unknown) amoxicillin (units (un known) date) Adverse Reaction unknown) (Verified 04/10/22 10:58) (unknown) (no (unknown) (unknown) continues to (units (u nknown) date) take Cymbalta. Pt unknown) reports that she was feeling like she was 'shaky (unknown) (no (unknown) (unknown) have occurred. (units (unknown) date) If there are any unknown) questions, please contact the Medical Records (unknown) (no (unknown) (unknown) household (units (unkn own) date) members: unknown) significant other and children (unknown) (no (unknown) (unknown) inside,' but the (units (unknown) date) tremors became unknown) worse and she was experiencing difficulty (unknown) (no (unknown) (unknown) marital status: (units (unknown) date) unmarried,living unknown) together (unknown) (no (unknown) (unknown) may occur. (units (unk nown) date) Occasional unknown) wrong-word or 'sound-alike' substitutions may have (unknown) (no (unknown) (unknown) occupational (units (u nknown) date) status: employed unknown) (unknown) (no (unknown) (unknown) occurred due to (units (unknown) date) the inherent unknown) limitations of voice recognition software. Please (unknown) (no (unknown) (unknown) read the note (units ( unknown) date) carefully and unknown) recognize, using context, where these substitutions (unknown) (no (unknown) (unknown) software. (units (unkn own) date) Although every unknown) effort is made to edit content, cathode builder errors (unknown) (no (unknown) (unknown) substance use (units ( unknown) date) type: does not unknown) use (unknown) (no (unknown) (unknown) symptoms and she (units (unknown) date) was advised to unknown) stop the Nortriptyline. Since that time the (unknown) (no (unknown) (unknown) texting. She (units (u nknown) date) started unknown) experiencing difficulty walking. Called to discuss these (unknown) (no (unknown) (unknown) tremulousness (units ( unknown) date) and shakiness has unknown) resolved. (unknown) (no (unknown) (unknown) tremulousness (units ( unknown) date) she was unknown) experiencing since starting the Nortriptyline. She Result panel 87 (unknown) (no (unknown) (unknown) (no value) (units (unk nown) date) unknown) (unknown) (no (unknown) (unknown) 07/05/22 (units (unkno wn) date) unknown) (unknown) (no (unknown) (unknown) [id number] (units (unkno wn) date) unknown) (unknown) (no (unknown) (unknown) 41F presents via (units (unknown) date) v-see telehealth unknown) to follow up about her medications and the (unknown) (no (unknown) (unknown) ADHD () (units (u nknown) date) unknown) (unknown) (no (unknown) (unknown) Abnormal Pap (units (u nknown) date) smear of cervix unknown) () (unknown) (no (unknown) (unknown) Age/Sex: 41 / F (units (unknown) date) Date of Service: unknown) (unknown) (no (unknown) (unknown) Allergies (units (unkn own) date) () unknown) (unknown) (no (unknown) (unknown) Allergies (units (unkn own) date) unknown) (unknown) (no (unknown) (unknown) [place]IE [place] (units ( unknown) date) [id number] unknown) (unknown) (no (unknown) (unknown) Anesthesia (units (unk nown) date) unknown) (unknown) (no (unknown) (unknown) Anxiety (-2002) (units (unknown) date) unknown) (unknown) (no (unknown) (unknown) Attending Dr: (units ( unknown) date) Mari DONG unknown) (unknown) (no (unknown) (unknown) Back pain at (units (u nknown) date) L4-L5 level unknown) () (unknown) (no (unknown) (unknown) Biliary colic (units ( unknown) date) unknown) (unknown) (no (unknown) (unknown) Called to (units (unkn own) date) discuss these unknown) symptoms and she was advised to stop the Nortriptyline. (unknown) (no (unknown) (unknown) Chicken pox (units (un known) date) () unknown) (unknown) (no (unknown) (unknown) Chief Complaint (units (unknown) date) unknown) (unknown) (no (unknown) (unknown) Chief Complaint: (units (unknown) date) Review unknown) medications, c/o tremulousness (unknown) (no (unknown) (unknown) Chronic hip (units (un known) date) pain, bilateral unknown) (unknown) (no (unknown) (unknown) Chronic right (units ( unknown) date) hip pain unknown) (unknown) (no (unknown) (unknown) Colon polyps (units (u nknown) date) () unknown) (unknown) (no (unknown) (unknown) : 1980 (units (unknown) date) Acct:[id number] unknown) (unknown) (no (unknown) (unknown) Depression (units (unk nown) date) () unknown) (unknown) (no (unknown) (unknown) Dept at (units (unkno wn) date) . unknown) (unknown) (no (unknown) (unknown) Details: (units (unkno wn) date) unknown) (unknown) (no (unknown) (unknown) Diabetes (units (unkno wn) date) mellitus unknown) (unknown) (no (unknown) (unknown) Diarrhea (units (unkno wn) date) unknown) (unknown) (no (unknown) (unknown) Documented By: (units (unknown) date) Mari Skinner unknown) 07/05/22 0906 (unknown) (no (unknown) (unknown) Draft (units (unkno wn) date) unknown) (unknown) (no (unknown) (unknown) Effexor Adverse (units (unknown) date) Reaction (Mild, unknown) Uncoded 04/10/22 12:15) (unknown) (no (unknown) (unknown) Fall (units (unkno wn) date) unknown) (unknown) (no (unknown) (unknown) Family History (units (unknown) date) (Reviewed unknown) 04/10/22 @ 17:34 by IKER Ying) (unknown) (no (unknown) (unknown) Family Practice (units (unknown) date) Office Visit unknown) (unknown) (no (unknown) (unknown) Father (units (unknown) date) Cancer unknown) (unknown) (no (unknown) (unknown) Fibroids (-2018) (units (unknown) date) unknown) (unknown) (no (unknown) (unknown) Fibromyalgia (units (u nknown) date) unknown) (unknown) (no (unknown) (unknown) [facility] unknown) (unknown) (no (unknown) (unknown) Forgetfulness (units ( unknown) date) unknown) (unknown) (no (unknown) (unknown) Grandfather Lung (units (unknown) date) cancer unknown) (unknown) (no (unknown) (unknown) Grandmother (units (un known) date) Cancer unknown) (unknown) (no (unknown) (unknown) HPI (units (unkno wn) date) unknown) (unknown) (no (unknown) (unknown) Heavy menstrual (units (unknown) date) period unknown) (unknown) (no (unknown) (unknown) History of (units (unk nown) date) bipolar disorder unknown) (unknown) (no (unknown) (unknown) History of heart (units (unknown) date) disease unknown) (unknown) (no (unknown) (unknown) History of (units (unk nown) date) placement of ear unknown) tubes (-02/08/86) (unknown) (no (unknown) (unknown) History of (units (unk nown) date) recurrent ear unknown) infection (unknown) (no (unknown) (unknown) Hypertension (units (u nknown) date) unknown) (unknown) (no (unknown) (unknown) Intake (units (unkno wn) date) unknown) (unknown) (no (unknown) (unknown) Left shoulder (units ( unknown) date) pain unknown) (unknown) (no (unknown) (unknown) Liver cancer (units (u nknown) date) unknown) (unknown) (no (unknown) (unknown) Loc: [facility] (units (unkno wn) date) unknown) (unknown) (no (unknown) (unknown) Medical History (units (unknown) date) (Reviewed unknown) 04/10/22 @ 17:34 by IKER Ying) (unknown) (no (unknown) (unknown) Mental health (units ( unknown) date) problem unknown) (unknown) (no (unknown) (unknown) Migraines (units (unkn own) date) () unknown) (unknown) (no (unknown) (unknown) Mother (units (unknown) date) Hyperlipidemia unknown) (unknown) (no (unknown) (unknown) Non-healing (units (un known) date) wound unknown) (unknown) (no (unknown) (unknown) Not currently (units ( unknown) date) unknown) (unknown) (no (unknown) (unknown) PFSH (units (unkno wn) date) unknown) (unknown) (no (unknown) (unknown) Painful (units (unkno wn) date) menstrual periods unknown) (unknown) (no (unknown) (unknown) Patient: (units (unkno wn) date) Kirsten Deng N unknown) MR#: [id number] (unknown) (no (unknown) (unknown) 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 (unknown) (no (unknown) (unknown) Reason For Visit (units (unknown) date) unknown) (unknown) (no (unknown) (unknown) Right shoulder (units (unknown) date) pain unknown) (unknown) (no (unknown) (unknown) Sciatic leg pain (units (unknown) date) unknown) (unknown) (no (unknown) (unknown) Scoliosis (units (unkn own) date) () unknown) (unknown) (no (unknown) (unknown) Signed By: (units (unk nown) date) unknown) (unknown) (no (unknown) (unknown) Since that time (units (unknown) date) the tremulousness unknown) and shakiness has resolved. (unknown) (no (unknown) (unknown) Skin changes of (units (unknown) date) breasts unknown) (unknown) (no (unknown) (unknown) Smoking Status: (units (unknown) date) Current some day unknown) smoker (unknown) (no (unknown) (unknown) Social History (units (unknown) date) unknown) (unknown) (no (unknown) (unknown) Surgical History (units (unknown) date) (Reviewed unknown) 04/10/22 @ 17:34 by IKER Ying) (unknown) (no (unknown) (unknown) This note may (units ( unknown) date) have been all or unknown) partially generated using voice recognition (unknown) (no (unknown) (unknown) Thyroid disease (units (unknown) date) unknown) (unknown) (no (unknown) (unknown) Tobacco + (units (unkn own) date) Substance Use unknown) (unknown) (no (unknown) (unknown) Tobacco Status (units (unknown) date) unknown) (unknown) (no (unknown) (unknown) UTI (urinary (units (u nknown) date) tract infection) unknown) (unknown) (no (unknown) (unknown) Vaginal delivery (units (unknown) date) unknown) (unknown) (no (unknown) (unknown) Visit Reasons: (units (unknown) date) VIDEO Med Review; unknown) shaky/tremors 01 (unknown) (no (unknown) (unknown) alcohol intake: (units (unknown) date) never unknown) (unknown) (no (unknown) (unknown) amoxicillin (units (un known) date) Adverse Reaction unknown) (Verified 04/10/22 10:58) (unknown) (no (unknown) (unknown) experiencing (units (u nknown) date) difficulty unknown) texting. She started experiencing difficulty walking. (unknown) (no (unknown) (unknown) feeling like she (units (unknown) date) was 'shaky unknown) inside,' but the tremors became worse and she was (unknown) (no (unknown) (unknown) have occurred. (units (unknown) date) If there are any unknown) questions, please contact the Medical Records (unknown) (no (unknown) (unknown) household (units (unkn own) date) members: unknown) significant other and children (unknown) (no (unknown) (unknown) marital status: (units (unknown) date) unmarried,living unknown) together (unknown) (no (unknown) (unknown) may occur. (units (unk nown) date) Occasional unknown) wrong-word or 'sound-alike' substitutions may have (unknown) (no (unknown) (unknown) occupational (units (u nknown) date) status: employed unknown) (unknown) (no (unknown) (unknown) occurred due to (units (unknown) date) the inherent unknown) limitations of voice recognition software. Please (unknown) (no (unknown) (unknown) of stress (units (unkn own) date) through the unknown) holidays. Shakiness started about a month after she (unknown) (no (unknown) (unknown) read the note (units ( unknown) date) carefully and unknown) recognize, using context, where these substitutions (unknown) (no (unknown) (unknown) software. (units (unkn own) date) Although every unknown) effort is made to edit content, cathode builder errors (unknown) (no (unknown) (unknown) started on (units (unk nown) date) Nortriptyline and unknown) Duloxetine by a colleague. Was experiencing a lot (unknown) (no (unknown) (unknown) started the (units (un known) date) medication. She unknown) continues to take Cymbalta. Pt reports that she was (unknown) (no (unknown) (unknown) substance use (units ( unknown) date) type: does not unknown) use (unknown) (no (unknown) (unknown) tremulousness she (units (unknown) date) was experiencing unknown) since starting the Nortriptyline. Patient was Result panel 88 (unknown) (no (unknown) (unknown) (no value) (units (unk nown) date) unknown) (unknown) (no (unknown) (unknown) (1) (units (unkno wn) date) Fibromyalgia: unknown) (unknown) (no (unknown) (unknown) (2) Depression: (units (unknown) date) unknown) (unknown) (no (unknown) (unknown) (3) Anxiety: (units (u nknown) date) unknown) (unknown) (no (unknown) (unknown) 07/05/22 (units (unkno wn) date) unknown) (unknown) (no (unknown) (unknown) [id number] (units (unkno wn) date) unknown) (unknown) (no (unknown) (unknown) 41F presents via (units (unknown) date) v-see telehealth unknown) to follow up about her medications and the (unknown) (no (unknown) (unknown) 41F presents via (units (unknown) date) v-see to follow unknown) up about SSRI syndrome symptoms (shakines) and (unknown) (no (unknown) (unknown) ADHD () (units (u nknown) date) unknown) (unknown) (no (unknown) (unknown) Abnormal Pap (units (u nknown) date) smear of cervix unknown) () (unknown) (no (unknown) (unknown) Age/Sex: 41 / F (units (unknown) date) Date of Service: unknown) (unknown) (no (unknown) (unknown) Allergies (units (unkn own) date) () unknown) (unknown) (no (unknown) (unknown) Allergies (units (unkn own) date) unknown) (unknown) (no (unknown) (unknown) [place], [place] (units ( unknown) date) [id number] unknown) (unknown) (no (unknown) (unknown) Anesthesia (units (unk nown) date) unknown) (unknown) (no (unknown) (unknown) Anxiety (-2002) (units (unknown) date) unknown) (unknown) (no (unknown) (unknown) Assessment + (units (u nknown) date) Plan unknown) (unknown) (no (unknown) (unknown) Attending Dr: (units ( unknown) date) Mari DONG unknown) (unknown) (no (unknown) (unknown) Back pain at (units (u nknown) date) L4-L5 level unknown) () (unknown) (no (unknown) (unknown) Biliary colic (units ( unknown) date) unknown) (unknown) (no (unknown) (unknown) Called to (units (unkn own) date) discuss these unknown) symptoms and she was advised to stop the Nortriptyline. (unknown) (no (unknown) (unknown) Chicken pox (units (un known) date) () unknown) (unknown) (no (unknown) (unknown) Chief Complaint (units (unknown) date) unknown) (unknown) (no (unknown) (unknown) Chief Complaint: (units (unknown) date) Review unknown) medications, c/o tremulousness (unknown) (no (unknown) (unknown) Chronic hip (units (un known) date) pain, bilateral unknown) (unknown) (no (unknown) (unknown) Chronic right (units ( unknown) date) hip pain unknown) (unknown) (no (unknown) (unknown) Colon polyps (units (u nknown) date) () unknown) (unknown) (no (unknown) (unknown) Const (units (unkno wn) date) unknown) (unknown) (no (unknown) (unknown) : 1980 (units (unknown) date) Acct:[id number] unknown) (unknown) (no (unknown) (unknown) Depression (units (unk nown) date) () unknown) (unknown) (no (unknown) (unknown) Depression Type: (units (unknown) date) unspecified unknown) Qualified Code(s): F32.A - Depression, (unknown) (no (unknown) (unknown) Dept at (units (unkno wn) date) . unknown) (unknown) (no (unknown) (unknown) Details: (units (unkno wn) date) unknown) (unknown) (no (unknown) (unknown) Diabetes (units (unkno wn) date) mellitus unknown) (unknown) (no (unknown) (unknown) Diarrhea (units (unkno wn) date) unknown) (unknown) (no (unknown) (unknown) Discontinued (units (u nknown) date) Reason: Order unknown) Change 20 mg PO DAILY 30 caps 1RF (unknown) (no (unknown) (unknown) Discontinued (units (u nknown) date) Reason: Patient unknown) no longer taking 10 mg PO BEDTIME 30 caps 1RF (unknown) (no (unknown) (unknown) Discontinued (units (u nknown) date) unknown) (unknown) (no (unknown) (unknown) Documented By: (units (unknown) date) Mari Skinner unknown) 07/05/22 0906 (unknown) (no (unknown) (unknown) Draft (units (unkno wn) date) unknown) (unknown) (no (unknown) (unknown) Effexor Adverse (units (unknown) date) Reaction (Mild, unknown) Uncoded 04/10/22 12:15) (unknown) (no (unknown) (unknown) Exam Narrative (units (unknown) date) unknown) (unknown) (no (unknown) (unknown) Exam Narrative: (units (unknown) date) unknown) (unknown) (no (unknown) (unknown) Exam (units (unkno wn) date) unknown) (unknown) (no (unknown) (unknown) Fall (units (unkno wn) date) unknown) (unknown) (no (unknown) (unknown) Family History (units (unknown) date) (Reviewed unknown) 07/05/22 @ 09:18 by IKER Ying) (unknown) (no (unknown) (unknown) Family Practice (units (unknown) date) Office Visit unknown) (unknown) (no (unknown) (unknown) Father (units (unknown) date) Cancer unknown) (unknown) (no (unknown) (unknown) Fibroids () (units (unknown) date) unknown) (unknown) (no (unknown) (unknown) Fibromyalgia (units (u nknown) date) unknown) (unknown) (no (unknown) (unknown) [facility] ([facility] unknown) (unknown) (no (unknown) (unknown) Forgetfulness (units ( unknown) date) unknown) (unknown) (no (unknown) (unknown) Grandfather Lung (units (unknown) date) cancer unknown) (unknown) (no (unknown) (unknown) Grandmother (units (un known) date) Cancer unknown) (unknown) (no (unknown) (unknown) HPI (units (unkno wn) date) unknown) (unknown) (no (unknown) (unknown) Heavy menstrual (units (unknown) date) period unknown) (unknown) (no (unknown) (unknown) History of (units (unk nown) date) bipolar disorder unknown) (unknown) (no (unknown) (unknown) History of heart (units (unknown) date) disease unknown) (unknown) (no (unknown) (unknown) History of (units (unk nown) date) placement of ear unknown) tubes (-02/08/86) (unknown) (no (unknown) (unknown) History of (units (unk nown) date) recurrent ear unknown) infection (unknown) (no (unknown) (unknown) Hypertension (units (u nknown) date) unknown) (unknown) (no (unknown) (unknown) Intake (units (unkno wn) date) unknown) (unknown) (no (unknown) (unknown) Left shoulder (units ( unknown) date) pain unknown) (unknown) (no (unknown) (unknown) Liver cancer (units (u nknown) date) unknown) (unknown) (no (unknown) (unknown) Loc: [facility] (units (unkno wn) date) unknown) (unknown) (no (unknown) (unknown) Medical History (units (unknown) date) (Reviewed unknown) 07/05/22 @ 09:18 by IKER Ying) (unknown) (no (unknown) (unknown) Medications: (units (u nknown) date) unknown) (unknown) (no (unknown) (unknown) Mental health (units ( unknown) date) problem unknown) (unknown) (no (unknown) (unknown) Migraines (units (unkn own) date) (-1993) unknown) (unknown) (no (unknown) (unknown) Mother (units (unknown) date) Hyperlipidemia unknown) (unknown) (no (unknown) (unknown) New (units (unkno wn) date) unknown) (unknown) (no (unknown) (unknown) Non-healing (units (un known) date) wound unknown) (unknown) (no (unknown) (unknown) Not currently (units ( unknown) date) unknown) (unknown) (no (unknown) (unknown) PFSH (units (unkno wn) date) unknown) (unknown) (no (unknown) (unknown) Painful (units (unkno wn) date) menstrual periods unknown) (unknown) (no (unknown) (unknown) Patient: (units (unkno wn) date) Kirsten Deng N unknown) MR#: [id number] (unknown) (no (unknown) (unknown) 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 (unknown) (no (unknown) (unknown) Qualifiers: (units (un known) date) unknown) (unknown) (no (unknown) (unknown) ROS (units (unkno wn) date) unknown) (unknown) (no (unknown) (unknown) Reason For Visit (units (unknown) date) unknown) (unknown) (no (unknown) (unknown) Reports as per (units (unknown) date) HPI unknown) (unknown) (no (unknown) (unknown) Right shoulder (units (unknown) date) pain unknown) (unknown) (no (unknown) (unknown) Sciatic leg pain (units (unknown) date) unknown) (unknown) (no (unknown) (unknown) Scoliosis (units (unkn own) date) () unknown) (unknown) (no (unknown) (unknown) Signed By: (units (unk nown) date) unknown) (unknown) (no (unknown) (unknown) Since that time (units (unknown) date) the tremulousness unknown) and shakiness has resolved. She is worried (unknown) (no (unknown) (unknown) Skin changes of (units (unknown) date) breasts unknown) (unknown) (no (unknown) (unknown) Smoking Status: (units (unknown) date) Current some day unknown) smoker (unknown) (no (unknown) (unknown) Social History (units (unknown) date) unknown) (unknown) (no (unknown) (unknown) Status: Acute (units ( unknown) date) unknown) (unknown) (no (unknown) (unknown) Status: Chronic (units (unknown) date) unknown) (unknown) (no (unknown) (unknown) Surgical History (units (unknown) date) (Reviewed unknown) 07/05/22 @ 09:18 by IKER Ying) (unknown) (no (unknown) (unknown) Take 1 capsule (units (unknown) date) twice daily 30 mg unknown) PO BID 180 caps 3RF F32.A - Depression, (unknown) (no (unknown) (unknown) This note may (units ( unknown) date) have been all or unknown) partially generated using voice recognition (unknown) (no (unknown) (unknown) Thyroid disease (units (unknown) date) unknown) (unknown) (no (unknown) (unknown) Tobacco + (units (unkn own) date) Substance Use unknown) (unknown) (no (unknown) (unknown) Tobacco Status (units (unknown) date) unknown) (unknown) (no (unknown) (unknown) UTI (urinary (units (u nknown) date) tract infection) unknown) (unknown) (no (unknown) (unknown) Vaginal delivery (units (unknown) date) unknown) (unknown) (no (unknown) (unknown) Visit Reasons: (units (unknown) date) VIDEO Med Review; unknown) shaky/tremors 01 (unknown) (no (unknown) (unknown) about her (units (unkn own) date) cholesterol. unknown) (unknown) (no (unknown) (unknown) alcohol intake: (units (unknown) date) never unknown) (unknown) (no (unknown) (unknown) amoxicillin (units (un known) date) Adverse Reaction unknown) (Verified 04/10/22 10:58) (unknown) (no (unknown) (unknown) duloxetine (units (unk nown) date) unknown) (unknown) (no (unknown) (unknown) experiencing (units (u nknown) date) difficulty unknown) texting. She started experiencing difficulty walking. (unknown) (no (unknown) (unknown) feeling like she (units (unknown) date) was 'shaky unknown) inside,' but the tremors became worse and she was (unknown) (no (unknown) (unknown) have occurred. (units (unknown) date) If there are any unknown) questions, please contact the Medical Records (unknown) (no (unknown) (unknown) her recent labs. (units (unknown) date) unknown) (unknown) (no (unknown) (unknown) household (units (unkn own) date) members: unknown) significant other and children (unknown) (no (unknown) (unknown) marital status: (units (unknown) date) unmarried,living unknown) together (unknown) (no (unknown) (unknown) may occur. (units (unk nown) date) Occasional unknown) wrong-word or 'sound-alike' substitutions may have (unknown) (no (unknown) (unknown) nortriptyline (units ( unknown) date) unknown) (unknown) (no (unknown) (unknown) occupational (units (u nknown) date) status: employed unknown) (unknown) (no (unknown) (unknown) occurred due to (units (unknown) date) the inherent unknown) limitations of voice recognition software. Please (unknown) (no (unknown) (unknown) of stress (units (unkn own) date) through the unknown) holidays. Shakiness started about a month after she (unknown) (no (unknown) (unknown) read the note (units ( unknown) date) carefully and unknown) recognize, using context, where these substitutions (unknown) (no (unknown) (unknown) software. (units (unkn own) date) Although every unknown) effort is made to edit content, cathode builder errors (unknown) (no (unknown) (unknown) started on (units (unk nown) date) Nortriptyline and unknown) Duloxetine by a colleague. Was experiencing a lot (unknown) (no (unknown) (unknown) started the (units (un known) date) medication. She unknown) continues to take Cymbalta. Pt reports that she was (unknown) (no (unknown) (unknown) substance use (units ( unknown) date) type: does not unknown) use (unknown) (no (unknown) (unknown) tremulousness she (units (unknown) date) was experiencing unknown) since starting the Nortriptyline. Patient was (unknown) (no (unknown) (unknown) unspecified (units (un known) date) unknown) (unknown) (no (unknown) (unknown) unspecified, (units (u nknown) date) F41.9 - Anxiety unknown) disorder, unspecified, M79.7 - Fibromyalgia Result panel 89 (unknown) (no (unknown) (unknown) (no value) (units (unk nown) date) unknown) (unknown) (no (unknown) (unknown) (1) (units (unkno wn) date) Fibromyalgia: unknown) (unknown) (no (unknown) (unknown) (2) Depression: (units (unknown) date) unknown) (unknown) (no (unknown) (unknown) (3) Anxiety: (units (u nknown) date) unknown) (unknown) (no (unknown) (unknown) 07/05/22 (units (unkno wn) date) unknown) (unknown) (no (unknown) (unknown) [id number] (units (unkno wn) date) unknown) (unknown) (no (unknown) (unknown) 2-3 days, tries (units (unknown) date) to lie down and unknown) takes some tylenol for the pain. (unknown) (no (unknown) (unknown) 41F presents via (units (unknown) date) v-see telehealth unknown) to follow up about her medications and the (unknown) (no (unknown) (unknown) 41F presents via (units (unknown) date) v-see to follow unknown) up about SSRI syndrome symptoms (shakines) and (unknown) (no (unknown) (unknown) ADHD () (units (u nknown) date) unknown) (unknown) (no (unknown) (unknown) Abnormal Pap (units (u nknown) date) smear of cervix unknown) () (unknown) (no (unknown) (unknown) Age/Sex: 41 / F (units (unknown) date) Date of Service: unknown) (unknown) (no (unknown) (unknown) Allergies (units (unkn own) date) () unknown) (unknown) (no (unknown) (unknown) Allergies (units (unkn own) date) unknown) (unknown) (no (unknown) (unknown) EDIE Richey (units ( unknown) date) [id number] unknown) (unknown) (no (unknown) (unknown) Anesthesia (units (unk nown) date) unknown) (unknown) (no (unknown) (unknown) Anxiety () (units (unknown) date) unknown) (unknown) (no (unknown) (unknown) Assessment + (units (u nknown) date) Plan unknown) (unknown) (no (unknown) (unknown) Attending Dr: (units ( unknown) date) Mari DONG unknown) (unknown) (no (unknown) (unknown) Back pain at (units (u nknown) date) L4-L5 level unknown) () (unknown) (no (unknown) (unknown) Biliary colic (units ( unknown) date) unknown) (unknown) (no (unknown) (unknown) Called to (units (unkn own) date) discuss these unknown) symptoms and she was advised to stop the Nortriptyline. (unknown) (no (unknown) (unknown) Chicken pox (units (un known) date) () unknown) (unknown) (no (unknown) (unknown) Chief Complaint (units (unknown) date) unknown) (unknown) (no (unknown) (unknown) Chief Complaint: (units (unknown) date) Review unknown) medications, c/o tremulousness (unknown) (no (unknown) (unknown) Chronic hip (units (un known) date) pain, bilateral unknown) (unknown) (no (unknown) (unknown) Chronic right (units ( unknown) date) hip pain unknown) (unknown) (no (unknown) (unknown) Colon polyps (units (u nknown) date) () unknown) (unknown) (no (unknown) (unknown) Const (units (unkno wn) date) unknown) (unknown) (no (unknown) (unknown) : 1980 (units (unknown) date) Acct:[id number] unknown) (unknown) (no (unknown) (unknown) Depression (units (unk nown) date) () unknown) (unknown) (no (unknown) (unknown) Depression Type: (units (unknown) date) unspecified unknown) Qualified Code(s): F32.A - Depression, (unknown) (no (unknown) (unknown) Dept at (units (unkno wn) date) . unknown) (unknown) (no (unknown) (unknown) Details: (units (unkno wn) date) unknown) (unknown) (no (unknown) (unknown) Diabetes (units (unkno wn) date) mellitus unknown) (unknown) (no (unknown) (unknown) Diarrhea (units (unkno wn) date) unknown) (unknown) (no (unknown) (unknown) Discontinued (units (u nknown) date) Reason: Order unknown) Change 20 mg PO DAILY 30 caps 1RF (unknown) (no (unknown) (unknown) Discontinued (units (u nknown) date) Reason: Patient unknown) no longer taking 10 mg PO BEDTIME 30 caps 1RF (unknown) (no (unknown) (unknown) Discontinued (units (u nknown) date) unknown) (unknown) (no (unknown) (unknown) Documented By: (units (unknown) date) Mari Skinner unknown) 07/05/22 0906 (unknown) (no (unknown) (unknown) Draft (units (unkno wn) date) unknown) (unknown) (no (unknown) (unknown) Effexor Adverse (units (unknown) date) Reaction (Mild, unknown) Uncoded 04/10/22 12:15) (unknown) (no (unknown) (unknown) Exam Narrative (units (unknown) date) unknown) (unknown) (no (unknown) (unknown) Exam Narrative: (units (unknown) date) unknown) (unknown) (no (unknown) (unknown) Exam (units (unkno wn) date) unknown) (unknown) (no (unknown) (unknown) Fall (units (unkno wn) date) unknown) (unknown) (no (unknown) (unknown) Family History (units (unknown) date) (Reviewed unknown) 07/05/22 @ 09:18 by IKER Ying) (unknown) (no (unknown) (unknown) Family Practice (units (unknown) date) Office Visit unknown) (unknown) (no (unknown) (unknown) Father (units (unknown) date) Cancer unknown) (unknown) (no (unknown) (unknown) Fibroids (-2018) (units (unknown) date) unknown) (unknown) (no (unknown) (unknown) Fibromyalgia (units (u nknown) date) unknown) (unknown) (no (unknown) (unknown) [facility] ([facility] date[facility] unknown) (unknown) (no (unknown) (unknown) Forgetfulness (units ( unknown) date) unknown) (unknown) (no (unknown) (unknown) Grandfather Lung (units (unknown) date) cancer unknown) (unknown) (no (unknown) (unknown) Grandmother (units (un known) date) Cancer unknown) (unknown) (no (unknown) (unknown) HPI (units (unkno wn) date) unknown) (unknown) (no (unknown) (unknown) Heavy menstrual (units (unknown) date) period unknown) (unknown) (no (unknown) (unknown) History of (units (unk nown) date) bipolar disorder unknown) (unknown) (no (unknown) (unknown) History of heart (units (unknown) date) disease unknown) (unknown) (no (unknown) (unknown) History of (units (unk nown) date) placement of ear unknown) tubes (-02/08/86) (unknown) (no (unknown) (unknown) History of (units (unk nown) date) recurrent ear unknown) infection (unknown) (no (unknown) (unknown) Hypertension (units (u nknown) date) unknown) (unknown) (no (unknown) (unknown) Intake (units (unkno wn) date) unknown) (unknown) (no (unknown) (unknown) Left shoulder (units ( unknown) date) pain unknown) (unknown) (no (unknown) (unknown) Liver cancer (units (u nknown) date) unknown) (unknown) (no (unknown) (unknown) Loc: [facility] (units (unkno wn) date) unknown) (unknown) (no (unknown) (unknown) Medical History (units (unknown) date) (Reviewed unknown) 07/05/22 @ 09:18 by IKER Ying) (unknown) (no (unknown) (unknown) Medications: (units (u nknown) date) unknown) (unknown) (no (unknown) (unknown) Mental health (units ( unknown) date) problem unknown) (unknown) (no (unknown) (unknown) Migraines (units (unkn own) date) (-1993) unknown) (unknown) (no (unknown) (unknown) Mother (units (unknown) date) Hyperlipidemia unknown) (unknown) (no (unknown) (unknown) New (units (unkno wn) date) unknown) (unknown) (no (unknown) (unknown) Non-healing (units (un known) date) wound unknown) (unknown) (no (unknown) (unknown) Not currently (units ( unknown) date) unknown) (unknown) (no (unknown) (unknown) PFSH (units (unkno wn) date) unknown) (unknown) (no (unknown) (unknown) Painful (units (unkno wn) date) menstrual periods unknown) (unknown) (no (unknown) (unknown) Patient: (units (unkno wn) date) Kirsten Deng N unknown) MR#: [id number] (unknown) (no (unknown) (unknown) 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 (unknown) (no (unknown) (unknown) Pt's migraines (units (unknown) date) have increased in unknown) frequency, she thinks perhaps related to (unknown) (no (unknown) (unknown) Qualifiers: (units (un known) date) unknown) (unknown) (no (unknown) (unknown) ROS (units (unkno wn) date) unknown) (unknown) (no (unknown) (unknown) Reason For Visit (units (unknown) date) unknown) (unknown) (no (unknown) (unknown) Reports as per (units (unknown) date) HPI unknown) (unknown) (no (unknown) (unknown) Right shoulder (units (unknown) date) pain unknown) (unknown) (no (unknown) (unknown) Sciatic leg pain (units (unknown) date) unknown) (unknown) (no (unknown) (unknown) Scoliosis (units (unkn own) date) () unknown) (unknown) (no (unknown) (unknown) She has recently (units (unknown) date) been experiencing unknown) 5-6 migraines per month, and can last up to (unknown) (no (unknown) (unknown) Signed By: (units (unk nown) date) unknown) (unknown) (no (unknown) (unknown) Since that time (units (unknown) date) the tremulousness unknown) and shakiness has resolved. She is worried (unknown) (no (unknown) (unknown) Skin changes of (units (unknown) date) breasts unknown) (unknown) (no (unknown) (unknown) Smoking Status: (units (unknown) date) Current some day unknown) smoker (unknown) (no (unknown) (unknown) Social History (units (unknown) date) unknown) (unknown) (no (unknown) (unknown) Status: Acute (units ( unknown) date) unknown) (unknown) (no (unknown) (unknown) Status: Chronic (units (unknown) date) unknown) (unknown) (no (unknown) (unknown) Surgical History (units (unknown) date) (Reviewed unknown) 07/05/22 @ 09:18 by IKER Ying) (unknown) (no (unknown) (unknown) Take 1 capsule (units (unknown) date) twice daily 30 mg unknown) PO BID 180 caps 3RF F32.A - Depression, (unknown) (no (unknown) (unknown) This note may (units ( unknown) date) have been all or unknown) partially generated using voice recognition (unknown) (no (unknown) (unknown) Thyroid disease (units (unknown) date) unknown) (unknown) (no (unknown) (unknown) Tobacco + (units (unkn own) date) Substance Use unknown) (unknown) (no (unknown) (unknown) Tobacco Status (units (unknown) date) unknown) (unknown) (no (unknown) (unknown) UTI (urinary (units (u nknown) date) tract infection) unknown) (unknown) (no (unknown) (unknown) Vaginal delivery (units (unknown) date) unknown) (unknown) (no (unknown) (unknown) Visit Reasons: (units (unknown) date) VIDEO Med Review; unknown) shaky/tremors 01 (unknown) (no (unknown) (unknown) about her (units (unkn own) date) cholesterol. unknown) (unknown) (no (unknown) (unknown) alcohol intake: (units (unknown) date) never unknown) (unknown) (no (unknown) (unknown) amoxicillin (units (un known) date) Adverse Reaction unknown) (Verified 04/10/22 10:58) (unknown) (no (unknown) (unknown) duloxetine (units (unk nown) date) unknown) (unknown) (no (unknown) (unknown) experiencing (units (u nknown) date) difficulty unknown) texting. She started experiencing difficulty walking. (unknown) (no (unknown) (unknown) feeling like she (units (unknown) date) was 'shaky unknown) inside,' but the tremors became worse and she was (unknown) (no (unknown) (unknown) fibromyalgia (units (u nknown) date) type pain that unknown) starts in her upper neck and moves into her head. (unknown) (no (unknown) (unknown) have occurred. (units (unknown) date) If there are any unknown) questions, please contact the Medical Records (unknown) (no (unknown) (unknown) her recent labs. (units (unknown) date) unknown) (unknown) (no (unknown) (unknown) household (units (unkn own) date) members: unknown) significant other and children (unknown) (no (unknown) (unknown) marital status: (units (unknown) date) unmarried,living unknown) together (unknown) (no (unknown) (unknown) may occur. (units (unk nown) date) Occasional unknown) wrong-word or 'sound-alike' substitutions may have (unknown) (no (unknown) (unknown) nortriptyline (units ( unknown) date) unknown) (unknown) (no (unknown) (unknown) occupational (units (u nknown) date) status: employed unknown) (unknown) (no (unknown) (unknown) occurred due to (units (unknown) date) the inherent unknown) limitations of voice recognition software. Please (unknown) (no (unknown) (unknown) of stress (units (unkn own) date) through the unknown) holidays. Shakiness started about a month after she (unknown) (no (unknown) (unknown) read the note (units ( unknown) date) carefully and unknown) recognize, using context, where these substitutions (unknown) (no (unknown) (unknown) software. (units (unkn own) date) Although every unknown) effort is made to edit content, cathode builder errors (unknown) (no (unknown) (unknown) started on (units (unk nown) date) Nortriptyline and unknown) Duloxetine by a colleague. Was experiencing a lot (unknown) (no (unknown) (unknown) started the (units (un known) date) medication. She unknown) continues to take Cymbalta. Pt reports that she was (unknown) (no (unknown) (unknown) substance use (units ( unknown) date) type: does not unknown) use (unknown) (no (unknown) (unknown) tremulousness she (units (unknown) date) was experiencing unknown) since starting the Nortriptyline. Patient was (unknown) (no (unknown) (unknown) unspecified (units (un known) date) unknown) (unknown) (no (unknown) (unknown) unspecified, (units (u nknown) date) F41.9 - Anxiety unknown) disorder, unspecified, M79.7 - Fibromyalgia Result panel 90 (unknown) (no (unknown) (unknown) (no value) (units (unk nown) date) unknown) (unknown) (no (unknown) (unknown) #30 caps (units (unkno wn) date) 06/28/22 [Rx unknown) Confirmed 07/05/22] (unknown) (no (unknown) (unknown) (1) (units (unkno wn) date) Fibromyalgia: unknown) (unknown) (no (unknown) (unknown) (2) Depression: (units (unknown) date) unknown) (unknown) (no (unknown) (unknown) (3) Anxiety: (units (u nknown) date) unknown) (unknown) (no (unknown) (unknown) (4) Headache: (units ( unknown) date) unknown) (unknown) (no (unknown) (unknown) (5) Chronic (units (un known) date) headaches: unknown) (unknown) (no (unknown) (unknown) 07/05/22 (units (unkno wn) date) unknown) (unknown) (no (unknown) (unknown) 07/05/22] (units (unkn own) date) unknown) (unknown) (no (unknown) (unknown) 05/29/22 [Rx (units (u nknown) date) Confirmed unknown) 07/05/22] (unknown) (no (unknown) (unknown) [id number] (units (unkno wn) date) unknown) (unknown) (no (unknown) (unknown) 2-3 days, tries (units (unknown) date) to lie down and unknown) takes some tylenol for the pain. (unknown) (no (unknown) (unknown) 41F presents via (units (unknown) date) v-see telehealth unknown) to follow up about her medications and the (unknown) (no (unknown) (unknown) 41F presents via (units (unknown) date) v-see to follow unknown) up about SSRI syndrome symptoms (shakines) and (unknown) (no (unknown) (unknown) ADHD (-1982) (units (u nknown) date) unknown) (unknown) (no (unknown) (unknown) Abnormal Pap (units (u nknown) date) smear of cervix unknown) (-2017) (unknown) (no (unknown) (unknown) Age/Sex: 41 / F (units (unknown) date) Date of Service: unknown) (unknown) (no (unknown) (unknown) Allergies (units (unkn own) date) () unknown) (unknown) (no (unknown) (unknown) Allergies (units (unkn own) date) unknown) (unknown) (no (unknown) (unknown) [place], [place] (units ( unknown) date) [id number] unknown) (unknown) (no (unknown) (unknown) Anesthesia (units (unk nown) date) unknown) (unknown) (no (unknown) (unknown) Anxiety (-2002) (units (unknown) date) unknown) (unknown) (no (unknown) (unknown) Assessment + (units (u nknown) date) Plan unknown) (unknown) (no (unknown) (unknown) Attending Dr: (units ( unknown) date) Mari DONG unknown) (unknown) (no (unknown) (unknown) Back pain at (units (u nknown) date) L4-L5 level unknown) () (unknown) (no (unknown) (unknown) Biliary colic (units ( unknown) date) unknown) (unknown) (no (unknown) (unknown) Called to (units (unkn own) date) discuss these unknown) symptoms and she was advised to stop the Nortriptyline. (unknown) (no (unknown) (unknown) Chicken pox (units (un known) date) () unknown) (unknown) (no (unknown) (unknown) Chief Complaint (units (unknown) date) unknown) (unknown) (no (unknown) (unknown) Chief Complaint: (units (unknown) date) Review unknown) medications, c/o tremulousness (unknown) (no (unknown) (unknown) Chronic hip (units (un known) date) pain, bilateral unknown) (unknown) (no (unknown) (unknown) Chronic right (units ( unknown) date) hip pain unknown) (unknown) (no (unknown) (unknown) Colon polyps (units (u nknown) date) () unknown) (unknown) (no (unknown) (unknown) Confirmed (units (unkn own) date) 07/05/22] unknown) (unknown) (no (unknown) (unknown) Const (units (unkno wn) date) unknown) (unknown) (no (unknown) (unknown) : 1980 (units (unknown) date) Acct:[id number] unknown) (unknown) (no (unknown) (unknown) Depression (units (unk nown) date) (-2002) unknown) (unknown) (no (unknown) (unknown) Depression Type: (units (unknown) date) unspecified unknown) Qualified Code(s): F32.A - Depression, (unknown) (no (unknown) (unknown) Dept at (units (unkno wn) date) . unknown) (unknown) (no (unknown) (unknown) Details: (units (unkno wn) date) unknown) (unknown) (no (unknown) (unknown) Diabetes (units (unkno wn) date) mellitus unknown) (unknown) (no (unknown) (unknown) Diarrhea (units (unkno wn) date) unknown) (unknown) (no (unknown) (unknown) Discontinued (units (u nknown) date) Reason: Order unknown) Change 20 mg PO DAILY 30 caps 1RF (unknown) (no (unknown) (unknown) Discontinued (units (u nknown) date) Reason: Patient unknown) no longer taking 10 mg PO BEDTIME 30 caps 1RF (unknown) (no (unknown) (unknown) Discontinued (units (u nknown) date) unknown) (unknown) (no (unknown) (unknown) Documented By: (units (unknown) date) Mari Skinner unknown) 07/05/22 0906 (unknown) (no (unknown) (unknown) Draft (units (unkno wn) date) unknown) (unknown) (no (unknown) (unknown) Effexor Adverse (units (unknown) date) Reaction (Mild, unknown) Uncoded 04/10/22 12:15) (unknown) (no (unknown) (unknown) Exam Narrative (units (unknown) date) unknown) (unknown) (no (unknown) (unknown) Exam Narrative: (units (unknown) date) unknown) (unknown) (no (unknown) (unknown) Exam (units (unkno wn) date) unknown) (unknown) (no (unknown) (unknown) Fall (units (unkno wn) date) unknown) (unknown) (no (unknown) (unknown) Family History (units (unknown) date) (Reviewed unknown) 07/05/22 @ 09:18 by Mari Brown, ACCOUNT REVIEW SPECIALIST) (unknown) (no (unknown) (unknown) Family Practice (units (unknown) date) Office Visit unknown) (unknown) (no (unknown) (unknown) Father (units (unknown) date) Cancer unknown) (unknown) (no (unknown) (unknown) Feels fatigued, (units (unknown) date) but aware this is unknown) a 'part of the fibromyalgia.' Thought this (unknown) (no (unknown) (unknown) Fibroids (-2017) (units (unknown) date) unknown) (unknown) (no (unknown) (unknown) Fibromyalgia (units (u nknown) date) unknown) (unknown) (no (unknown) (unknown) [facility]) (unknown) (no (unknown) (unknown) Forgetfulness (units ( unknown) date) unknown) (unknown) (no (unknown) (unknown) G89.29 - Other (units (unknown) date) chronic pain, R51 unknown) - Headache, R51.9 - Headache, unspecified (unknown) (no (unknown) (unknown) Grandfather Lung (units (unknown) date) cancer unknown) (unknown) (no (unknown) (unknown) Grandmother (units (un known) date) Cancer unknown) (unknown) (no (unknown) (unknown) HPI (units (unkno wn) date) unknown) (unknown) (no (unknown) (unknown) Heavy menstrual (units (unknown) date) period unknown) (unknown) (no (unknown) (unknown) History of (units (unk nown) date) bipolar disorder unknown) (unknown) (no (unknown) (unknown) History of heart (units (unknown) date) disease unknown) (unknown) (no (unknown) (unknown) History of (units (unk nown) date) placement of ear unknown) tubes (-02/08/86) (unknown) (no (unknown) (unknown) History of (units (unk nown) date) recurrent ear unknown) infection (unknown) (no (unknown) (unknown) Hypertension (units (u nknown) date) unknown) (unknown) (no (unknown) (unknown) Intake (units (unkno wn) date) unknown) (unknown) (no (unknown) (unknown) Left shoulder (units ( unknown) date) pain unknown) (unknown) (no (unknown) (unknown) Liver cancer (units (u nknown) date) unknown) (unknown) (no (unknown) (unknown) Loc: [facility] (units (unkno wn) date) unknown) (unknown) (no (unknown) (unknown) Medical History (units (unknown) date) (Reviewed unknown) 07/05/22 @ 09:18 by IKER Ying) (unknown) (no (unknown) (unknown) Medications (units (un known) date) unknown) (unknown) (no (unknown) (unknown) Medications: (units (u nknown) date) unknown) (unknown) (no (unknown) (unknown) Mental health (units ( unknown) date) problem unknown) (unknown) (no (unknown) (unknown) Migraines (units (unkn own) date) (-1993) unknown) (unknown) (no (unknown) (unknown) Mother (units (unknown) date) Hyperlipidemia unknown) (unknown) (no (unknown) (unknown) Multi Vitamin (units ( unknown) date) 11/04/17 [History unknown) Confirmed 07/05/22] (unknown) (no (unknown) (unknown) New (units (unkno wn) date) unknown) (unknown) (no (unknown) (unknown) Non-healing (units (un known) date) wound unknown) (unknown) (no (unknown) (unknown) Not currently (units ( unknown) date) unknown) (unknown) (no (unknown) (unknown) PFSH (units (unkno wn) date) unknown) (unknown) (no (unknown) (unknown) Painful (units (unkno wn) date) menstrual periods unknown) (unknown) (no (unknown) (unknown) Patient: (units (unkno wn) date) Kirsten Deng N unknown) MR#: [id number] (unknown) (no (unknown) (unknown) 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 She is unknown) interested in getting tested for EB virus. Pt (unknown) (no (unknown) (unknown) Pt's migraines (units (unknown) date) have increased in unknown) frequency, she thinks perhaps related to (unknown) (no (unknown) (unknown) Qualifiers: (units (un known) date) unknown) (unknown) (no (unknown) (unknown) ROS (units (unkno wn) date) unknown) (unknown) (no (unknown) (unknown) Reason For Visit (units (unknown) date) unknown) (unknown) (no (unknown) (unknown) Reports as per (units (unknown) date) HPI unknown) (unknown) (no (unknown) (unknown) Right shoulder (units (unknown) date) pain unknown) (unknown) (no (unknown) (unknown) Sciatic leg pain (units (unknown) date) unknown) (unknown) (no (unknown) (unknown) Scoliosis (units (unkn own) date) () unknown) (unknown) (no (unknown) (unknown) She has recently (units (unknown) date) been experiencing unknown) 5-6 migraines per month, and can last up to (unknown) (no (unknown) (unknown) Signed By: (units (unk nown) date) unknown) (unknown) (no (unknown) (unknown) Since that time (units (unknown) date) the tremulousness unknown) and shakiness has resolved. She is worried (unknown) (no (unknown) (unknown) Skin changes of (units (unknown) date) breasts unknown) (unknown) (no (unknown) (unknown) Smoking Status: (units (unknown) date) Current some day unknown) smoker (unknown) (no (unknown) (unknown) Social History (units (unknown) date) unknown) (unknown) (no (unknown) (unknown) Status: Acute (units ( unknown) date) unknown) (unknown) (no (unknown) (unknown) Status: Chronic (units (unknown) date) unknown) (unknown) (no (unknown) (unknown) Surgical History (units (unknown) date) (Reviewed unknown) 07/05/22 @ 09:18 by IKER Ying) (unknown) (no (unknown) (unknown) Take 1 capsule (units (unknown) date) twice daily 30 mg unknown) PO BID 180 caps 3RF F32.A - Depression, (unknown) (no (unknown) (unknown) This note may (units ( unknown) date) have been all or unknown) partially generated using voice recognition (unknown) (no (unknown) (unknown) Thyroid disease (units (unknown) date) unknown) (unknown) (no (unknown) (unknown) Tobacco + (units (unkn own) date) Substance Use unknown) (unknown) (no (unknown) (unknown) Tobacco Status (units (unknown) date) unknown) (unknown) (no (unknown) (unknown) UTI (urinary (units (u nknown) date) tract infection) unknown) (unknown) (no (unknown) (unknown) Vaginal delivery (units (unknown) date) unknown) (unknown) (no (unknown) (unknown) Visit Reasons: (units (unknown) date) VIDEO Med Review; unknown) shaky/tremors (unknown) (no (unknown) (unknown) [Rx Confirmed (units ( unknown) date) 07/05/22] unknown) (unknown) (no (unknown) (unknown) about her (units (unkn own) date) cholesterol. unknown) (unknown) (no (unknown) (unknown) acetaminophen (units ( unknown) date) 325 mg capsule unknown) (Tylenol) 650 mg PO QID PRN pain #60 caps 02/28/22 (unknown) (no (unknown) (unknown) alcohol intake: (units (unknown) date) never unknown) (unknown) (no (unknown) (unknown) amoxicillin (units (un known) date) Adverse Reaction unknown) (Verified 04/10/22 10:58) (unknown) (no (unknown) (unknown) butalbital-aceta (units (unknown) date) minophen-caff unknown) 50-325-40 mg 1 tab PO Q4-6H PRN 30 tabs 1RF pain (unknown) (no (unknown) (unknown) butalbital-aceta (units (unknown) date) minophen-caffeine unknown) 50 mg-325 mg-40 mg tablet 1 tab PO Q4-6H PRN (unknown) (no (unknown) (unknown) dextroamphetamin (units (unknown) date) e-amphetamine ER unknown) 30 mg 24hr capsule,extend release 30 mg PO QAM (unknown) (no (unknown) (unknown) diclofenac (units (unk nown) date) sodium 75 mg unknown) tablet,delayed release 75 mg PO BID PRN pain #60 tabs (unknown) (no (unknown) (unknown) duloxetine 30 mg (units (unknown) date) capsule,delayed unknown) release 30 mg PO BID #180 caps 07/05/22 [Rx (unknown) (no (unknown) (unknown) duloxetine (units (unk nown) date) unknown) (unknown) (no (unknown) (unknown) experiencing (units (u nknown) date) difficulty unknown) texting. She started experiencing difficulty walking. (unknown) (no (unknown) (unknown) feeling like she (units (unknown) date) was 'shaky unknown) inside,' but the tremors became worse and she was (unknown) (no (unknown) (unknown) fibromyalgia (units (u nknown) date) type pain that unknown) starts in her upper neck and moves into her head. (unknown) (no (unknown) (unknown) gabapentin 300 (units (unknown) date) mg capsule 300 mg unknown) PO TID #450 caps 01/25/22 [Rx Confirmed (unknown) (no (unknown) (unknown) has been ill (units (u nknown) date) since prior to unknown) [place] with a cough and sore throat. The (unknown) (no (unknown) (unknown) have occurred. (units (unknown) date) If there are any unknown) questions, please contact the Medical Records (unknown) (no (unknown) (unknown) her recent labs. (units (unknown) date) unknown) (unknown) (no (unknown) (unknown) household (units (unkn own) date) members: unknown) significant other and children (unknown) (no (unknown) (unknown) marital status: (units (unknown) date) unmarried,living unknown) together (unknown) (no (unknown) (unknown) may occur. (units (unk nown) date) Occasional unknown) wrong-word or 'sound-alike' substitutions may have (unknown) (no (unknown) (unknown) nortriptyline (units ( unknown) date) unknown) (unknown) (no (unknown) (unknown) occupational (units (u nknown) date) status: employed unknown) (unknown) (no (unknown) (unknown) occurred due to (units (unknown) date) the inherent unknown) limitations of voice recognition software. Please (unknown) (no (unknown) (unknown) of stress (units (unkn own) date) through the unknown) holidays. Shakiness started about a month after she (unknown) (no (unknown) (unknown) pain #30 tabs (units ( unknown) date) 07/05/22 [Rx unknown) Confirmed 07/05/22] (unknown) (no (unknown) (unknown) read the note (units ( unknown) date) carefully and unknown) recognize, using context, where these substitutions (unknown) (no (unknown) (unknown) software. (units (unkn own) date) Although every unknown) effort is made to edit content, cathode builder errors (unknown) (no (unknown) (unknown) started on (units (unk nown) date) Nortriptyline and unknown) Duloxetine by a colleague. Was experiencing a lot (unknown) (no (unknown) (unknown) started the (units (un known) date) medication. She unknown) continues to take Cymbalta. Pt reports that she was (unknown) (no (unknown) (unknown) substance use (units ( unknown) date) type: does not unknown) use (unknown) (no (unknown) (unknown) symptoms seem to (units (unknown) date) improve but then unknown) gets worse again. Ears plugged bilaterally. (unknown) (no (unknown) (unknown) tremulousness she (units (unknown) date) was experiencing unknown) since starting the Nortriptyline. Patient was (unknown) (no (unknown) (unknown) unspecified (units (un known) date) unknown) (unknown) (no (unknown) (unknown) unspecified, (units (u nknown) date) F41.9 - Anxiety unknown) disorder, unspecified, M79.7 - Fibromyalgia (unknown) (no (unknown) (unknown) was a cold. (units (un known) date) unknown) Result panel 91 (unknown) (no (unknown) (unknown) (no value) (units (unk nown) date) unknown) (unknown) (no (unknown) (unknown) #30 caps (units (unkno wn) date) 06/28/22 [Rx unknown) Confirmed 07/05/22] (unknown) (no (unknown) (unknown) (1) (units (unkno wn) date) Fibromyalgia: unknown) (unknown) (no (unknown) (unknown) (2) Depression: (units (unknown) date) unknown) (unknown) (no (unknown) (unknown) (3) Anxiety: (units (u nknown) date) unknown) (unknown) (no (unknown) (unknown) (4) Headache: (units ( unknown) date) unknown) (unknown) (no (unknown) (unknown) (5) Chronic (units (un known) date) headaches: unknown) (unknown) (no (unknown) (unknown) 07/05/22 (units (unkno wn) date) unknown) (unknown) (no (unknown) (unknown) 07/05/22] (units (unkn own) date) unknown) (unknown) (no (unknown) (unknown) 05/29/22 [Rx (units (u nknown) date) Confirmed unknown) 07/05/22] (unknown) (no (unknown) (unknown) [id number] (units (unkno wn) date) unknown) (unknown) (no (unknown) (unknown) 2-3 days, tries (units (unknown) date) to lie down and unknown) takes some tylenol for the pain. (unknown) (no (unknown) (unknown) 41F presents via (units (unknown) date) v-see telehealth unknown) to follow up about her medications and the (unknown) (no (unknown) (unknown) 41F presents via (units (unknown) date) v-see to follow unknown) up about SSRI syndrome symptoms (shakines) and (unknown) (no (unknown) (unknown) ADHD () (units (u nknown) date) unknown) (unknown) (no (unknown) (unknown) Abnormal Pap (units (u nknown) date) smear of cervix unknown) () (unknown) (no (unknown) (unknown) Age/Sex: 41 / F (units (unknown) date) Date of Service: unknown) (unknown) (no (unknown) (unknown) Allergies (units (unkn own) date) () unknown) (unknown) (no (unknown) (unknown) Allergies (units (unkn own) date) unknown) (unknown) (no (unknown) (unknown) [place], [place] (units ( unknown) date) [id number] unknown) (unknown) (no (unknown) (unknown) Anesthesia (units (unk nown) date) unknown) (unknown) (no (unknown) (unknown) Anxiety (-2002) (units (unknown) date) unknown) (unknown) (no (unknown) (unknown) Assessment + (units (u nknown) date) Plan unknown) (unknown) (no (unknown) (unknown) Attending Dr: (units ( unknown) date) Mari DONG unknown) (unknown) (no (unknown) (unknown) Back pain at (units (u nknown) date) L4-L5 level unknown) () (unknown) (no (unknown) (unknown) Biliary colic (units ( unknown) date) unknown) (unknown) (no (unknown) (unknown) Called to (units (unkn own) date) discuss these unknown) symptoms and she was advised to stop the Nortriptyline. (unknown) (no (unknown) (unknown) Chicken pox (units (un known) date) () unknown) (unknown) (no (unknown) (unknown) Chief Complaint (units (unknown) date) unknown) (unknown) (no (unknown) (unknown) Chief Complaint: (units (unknown) date) Review unknown) medications, c/o tremulousness (unknown) (no (unknown) (unknown) Chronic hip (units (un known) date) pain, bilateral unknown) (unknown) (no (unknown) (unknown) Chronic right (units ( unknown) date) hip pain unknown) (unknown) (no (unknown) (unknown) Colon polyps (units (u nknown) date) () unknown) (unknown) (no (unknown) (unknown) Confirmed (units (unkn own) date) 07/05/22] unknown) (unknown) (no (unknown) (unknown) Const (units (unkno wn) date) unknown) (unknown) (no (unknown) (unknown) : 1980 (units (unknown) date) Acct:[id number] unknown) (unknown) (no (unknown) (unknown) Depression (units (unk nown) date) (-2002) unknown) (unknown) (no (unknown) (unknown) Depression Type: (units (unknown) date) unspecified unknown) Qualified Code(s): F32.A - Depression, (unknown) (no (unknown) (unknown) Dept at (units (unkno wn) date) . unknown) (unknown) (no (unknown) (unknown) Details: (units (unkno wn) date) unknown) (unknown) (no (unknown) (unknown) Diabetes (units (unkno wn) date) mellitus unknown) (unknown) (no (unknown) (unknown) Diarrhea (units (unkno wn) date) unknown) (unknown) (no (unknown) (unknown) Discontinued (units (u nknown) date) Reason: Order unknown) Change 20 mg PO DAILY 30 caps 1RF (unknown) (no (unknown) (unknown) Discontinued (units (u nknown) date) Reason: Patient unknown) no longer taking 10 mg PO BEDTIME 30 caps 1RF (unknown) (no (unknown) (unknown) Discontinued (units (u nknown) date) unknown) (unknown) (no (unknown) (unknown) Documented By: (units (unknown) date) Mari Skinner unknown) 07/05/22 0906 (unknown) (no (unknown) (unknown) Draft (units (unkno wn) date) unknown) (unknown) (no (unknown) (unknown) Effexor Adverse (units (unknown) date) Reaction (Mild, unknown) Uncoded 04/10/22 12:15) (unknown) (no (unknown) (unknown) Exam Narrative (units (unknown) date) unknown) (unknown) (no (unknown) (unknown) Exam Narrative: (units (unknown) date) unknown) (unknown) (no (unknown) (unknown) Exam (units (unkno wn) date) unknown) (unknown) (no (unknown) (unknown) Fall (units (unkno wn) date) unknown) (unknown) (no (unknown) (unknown) Family History (units (unknown) date) (Reviewed unknown) 07/05/22 @ 09:18 by IKER Ying) (unknown) (no (unknown) (unknown) Family Practice (units (unknown) date) Office Visit unknown) (unknown) (no (unknown) (unknown) Father (units (unknown) date) Cancer unknown) (unknown) (no (unknown) (unknown) Feels fatigued, (units (unknown) date) but aware this is unknown) a 'part of the fibromyalgia.' Thought this (unknown) (no (unknown) (unknown) Fibroids (-2018) (units (unknown) date) unknown) (unknown) (no (unknown) (unknown) Fibromyalgia (units (u nknown) date) unknown) (unknown) (no (unknown) (unknown) [facility] unknown) (unknown) (no (unknown) (unknown) Forgetfulness (units ( unknown) date) unknown) (unknown) (no (unknown) (unknown) G89.29 - Other (units (unknown) date) chronic pain, R51 unknown) - Headache, R51.9 - Headache, unspecified (unknown) (no (unknown) (unknown) Grandfather Lung (units (unknown) date) cancer unknown) (unknown) (no (unknown) (unknown) Grandmother (units (un known) date) Cancer unknown) (unknown) (no (unknown) (unknown) HPI (units (unkno wn) date) unknown) (unknown) (no (unknown) (unknown) Heavy menstrual (units (unknown) date) period unknown) (unknown) (no (unknown) (unknown) History of (units (unk nown) date) bipolar disorder unknown) (unknown) (no (unknown) (unknown) History of heart (units (unknown) date) disease unknown) (unknown) (no (unknown) (unknown) History of (units (unk nown) date) placement of ear unknown) tubes (-02/08/86) (unknown) (no (unknown) (unknown) History of (units (unk nown) date) recurrent ear unknown) infection (unknown) (no (unknown) (unknown) Hypertension (units (u nknown) date) unknown) (unknown) (no (unknown) (unknown) Intake (units (unkno wn) date) unknown) (unknown) (no (unknown) (unknown) Left shoulder (units ( unknown) date) pain unknown) (unknown) (no (unknown) (unknown) Liver cancer (units (u nknown) date) unknown) (unknown) (no (unknown) (unknown) Loc: [facility] (units (unkno wn) date) unknown) (unknown) (no (unknown) (unknown) Medical History (units (unknown) date) (Reviewed unknown) 07/05/22 @ 09:18 by IKER Ying) (unknown) (no (unknown) (unknown) Medications (units (un known) date) unknown) (unknown) (no (unknown) (unknown) Medications: (units (u nknown) date) unknown) (unknown) (no (unknown) (unknown) Mental health (units ( unknown) date) problem unknown) (unknown) (no (unknown) (unknown) Migraines (units (unkn own) date) () unknown) (unknown) (no (unknown) (unknown) Mother (units (unknown) date) Hyperlipidemia unknown) (unknown) (no (unknown) (unknown) Multi Vitamin (units ( unknown) date) 11/04/17 [History unknown) Confirmed 07/05/22] (unknown) (no (unknown) (unknown) New (units (unkno wn) date) unknown) (unknown) (no (unknown) (unknown) Non-healing (units (un known) date) wound unknown) (unknown) (no (unknown) (unknown) Not currently (units ( unknown) date) unknown) (unknown) (no (unknown) (unknown) PFSH (units (unkno wn) date) unknown) (unknown) (no (unknown) (unknown) Painful (units (unkno wn) date) menstrual periods unknown) (unknown) (no (unknown) (unknown) Patient: (units (unkno wn) date) Kirsten Deng N unknown) MR#: [id number] (unknown) (no (unknown) (unknown) 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 She is unknown) interested in getting tested for EB virus. Pt (unknown) (no (unknown) (unknown) Pt's migraines (units (unknown) date) have increased in unknown) frequency, she thinks perhaps related to (unknown) (no (unknown) (unknown) Qualifiers: (units (un known) date) unknown) (unknown) (no (unknown) (unknown) ROS (units (unkno wn) date) unknown) (unknown) (no (unknown) (unknown) Reason For Visit (units (unknown) date) unknown) (unknown) (no (unknown) (unknown) Reports as per (units (unknown) date) HPI unknown) (unknown) (no (unknown) (unknown) Right shoulder (units (unknown) date) pain unknown) (unknown) (no (unknown) (unknown) Sciatic leg pain (units (unknown) date) unknown) (unknown) (no (unknown) (unknown) Scoliosis (units (unkn own) date) () unknown) (unknown) (no (unknown) (unknown) She has recently (units (unknown) date) been experiencing unknown) 5-6 migraines per month, and can last up to (unknown) (no (unknown) (unknown) Signed By: (units (unk nown) date) unknown) (unknown) (no (unknown) (unknown) Since that time (units (unknown) date) the tremulousness unknown) and shakiness has resolved. She is worried (unknown) (no (unknown) (unknown) Skin changes of (units (unknown) date) breasts unknown) (unknown) (no (unknown) (unknown) Smoking Status: (units (unknown) date) Current some day unknown) smoker (unknown) (no (unknown) (unknown) Social History (units (unknown) date) unknown) (unknown) (no (unknown) (unknown) Sore throat is (units (unknown) date) due to coughing. unknown) Right ear with swelling, feels like 'there's a (unknown) (no (unknown) (unknown) Status: Acute (units ( unknown) date) unknown) (unknown) (no (unknown) (unknown) Status: Chronic (units (unknown) date) unknown) (unknown) (no (unknown) (unknown) Surgical History (units (unknown) date) (Reviewed unknown) 07/05/22 @ 09:18 by IKER Ying) (unknown) (no (unknown) (unknown) Take 1 capsule (units (unknown) date) twice daily 30 mg unknown) PO BID 180 caps 3RF F32.A - Depression, (unknown) (no (unknown) (unknown) This note may (units ( unknown) date) have been all or unknown) partially generated using voice recognition (unknown) (no (unknown) (unknown) Thyroid disease (units (unknown) date) unknown) (unknown) (no (unknown) (unknown) Tobacco + (units (unkn own) date) Substance Use unknown) (unknown) (no (unknown) (unknown) Tobacco Status (units (unknown) date) unknown) (unknown) (no (unknown) (unknown) UTI (urinary (units (u nknown) date) tract infection) unknown) (unknown) (no (unknown) (unknown) Vaginal delivery (units (unknown) date) unknown) (unknown) (no (unknown) (unknown) Visit Reasons: (units (unknown) date) VIDEO Med Review; unknown) shaky/tremors (unknown) (no (unknown) (unknown) [Rx Confirmed (units ( unknown) date) 07/05/22] unknown) (unknown) (no (unknown) (unknown) about her (units (unkn own) date) cholesterol. unknown) (unknown) (no (unknown) (unknown) acetaminophen (units ( unknown) date) 325 mg capsule unknown) (Tylenol) 650 mg PO QID PRN pain #60 caps 02/28/22 (unknown) (no (unknown) (unknown) alcohol intake: (units (unknown) date) never unknown) (unknown) (no (unknown) (unknown) amoxicillin (units (un known) date) Adverse Reaction unknown) (Verified 04/10/22 10:58) (unknown) (no (unknown) (unknown) but sometimes (units ( unknown) date) green unknown) intermittently. Has some mild pain/pressure in her sinuses. (unknown) (no (unknown) (unknown) butalbital-aceta (units (unknown) date) minophen-caff unknown) 50-325-40 mg 1 tab PO Q4-6H PRN 30 tabs 1RF pain (unknown) (no (unknown) (unknown) butalbital-aceta (units (unknown) date) minophen-caffeine unknown) 50 mg-325 mg-40 mg tablet 1 tab PO Q4-6H PRN (unknown) (no (unknown) (unknown) dextroamphetamin (units (unknown) date) e-amphetamine ER unknown) 30 mg 24hr capsule,extend release 30 mg PO QAM (unknown) (no (unknown) (unknown) diclofenac (units (unk nown) date) sodium 75 mg unknown) tablet,delayed release 75 mg PO BID PRN pain #60 tabs (unknown) (no (unknown) (unknown) duloxetine 30 mg (units (unknown) date) capsule,delayed unknown) release 30 mg PO BID #180 caps 07/05/22 [Rx (unknown) (no (unknown) (unknown) duloxetine (units (unk nown) date) unknown) (unknown) (no (unknown) (unknown) experiencing (units (u nknown) date) difficulty unknown) texting. She started experiencing difficulty walking. (unknown) (no (unknown) (unknown) feeling like she (units (unknown) date) was 'shaky unknown) inside,' but the tremors became worse and she was (unknown) (no (unknown) (unknown) fibromyalgia (units (u nknown) date) type pain that unknown) starts in her upper neck and moves into her head. (unknown) (no (unknown) (unknown) gabapentin 300 (units (unknown) date) mg capsule 300 mg unknown) PO TID #450 caps 01/25/22 [Rx Confirmed (unknown) (no (unknown) (unknown) has been ill (units (u nknown) date) since prior to unknown) [place] with a cough and sore throat. The (unknown) (no (unknown) (unknown) have occurred. (units (unknown) date) If there are any unknown) questions, please contact the Medical Records (unknown) (no (unknown) (unknown) her recent labs. (units (unknown) date) unknown) (unknown) (no (unknown) (unknown) household (units (unkn own) date) members: unknown) significant other and children (unknown) (no (unknown) (unknown) marital status: (units (unknown) date) unmarried,living unknown) together (unknown) (no (unknown) (unknown) may occur. (units (unk nown) date) Occasional unknown) wrong-word or 'sound-alike' substitutions may have (unknown) (no (unknown) (unknown) nortriptyline (units ( unknown) date) unknown) (unknown) (no (unknown) (unknown) occupational (units (u nknown) date) status: employed unknown) (unknown) (no (unknown) (unknown) occurred due to (units (unknown) date) the inherent unknown) limitations of voice recognition software. Please (unknown) (no (unknown) (unknown) of stress (units (unkn own) date) through the unknown) holidays. Shakiness started about a month after she (unknown) (no (unknown) (unknown) pain #30 tabs (units ( unknown) date) 07/05/22 [Rx unknown) Confirmed 07/05/22] (unknown) (no (unknown) (unknown) pimple in (units (unkn own) date) there.' unknown) (unknown) (no (unknown) (unknown) read the note (units ( unknown) date) carefully and unknown) recognize, using context, where these substitutions (unknown) (no (unknown) (unknown) software. (units (unkn own) date) Although every unknown) effort is made to edit content, cathode builder errors (unknown) (no (unknown) (unknown) started on (units (unk nown) date) Nortriptyline and unknown) Duloxetine by a colleague. Was experiencing a lot (unknown) (no (unknown) (unknown) started the (units (un known) date) medication. She unknown) continues to take Cymbalta. Pt reports that she was (unknown) (no (unknown) (unknown) substance use (units ( unknown) date) type: does not unknown) use (unknown) (no (unknown) (unknown) symptoms seem to (units (unknown) date) improve but then unknown) gets worse again. Ears plugged bilaterally. (unknown) (no (unknown) (unknown) that the cough (units (unknown) date) is not loosening unknown) up to spit it out. Nasal drainage is yellow, (unknown) (no (unknown) (unknown) tremulousness she (units (unknown) date) was experiencing unknown) since starting the Nortriptyline. Patient was (unknown) (no (unknown) (unknown) unspecified (units (un known) date) unknown) (unknown) (no (unknown) (unknown) unspecified, (units (u nknown) date) F41.9 - Anxiety unknown) disorder, unspecified, M79.7 - Fibromyalgia (unknown) (no (unknown) (unknown) was a cold. (units (un known) date) Denies fevers, unknown) but does have flushing intermittently. She reports Result panel 92 (unknown) (no (unknown) (unknown) (no value) (units (unk nown) date) unknown) (unknown) (no (unknown) (unknown) #30 caps 06/28/22 (units (unknown) date) [Rx Confirmed unknown) 07/05/22] (unknown) (no (unknown) (unknown) (1 tablet) after (units (unknown) date) lunch, 4 mg (1 unknown) tablet) after supper, and 4 mg (1 tablet) at (unknown) (no (unknown) (unknown) (1 tablet) after (units (unknown) date) lunch, 4 mg (1 unknown) tablet) after supper, and 8 mg (2 tablets) at (unknown) (no (unknown) (unknown) (1 tablet) after (units (unknown) date) lunch, and 4 mg (1 unknown) tablet) at bedtime. (unknown) (no (unknown) (unknown) (1) Fibromyalgia: (units (unknown) date) unknown) (unknown) (no (unknown) (unknown) (2) Depression: (units (unknown) date) unknown) (unknown) (no (unknown) (unknown) (3) Anxiety: (units (u nknown) date) unknown) (unknown) (no (unknown) (unknown) (4) Headache: (units ( unknown) date) unknown) (unknown) (no (unknown) (unknown) (5) Chronic (units (un known) date) headaches: unknown) (unknown) (no (unknown) (unknown) (6) SSRI (selective (unit s (unknown) date) serotonin reuptake unknown) inhibitor) causing adverse effect in (unknown) (no (unknown) (unknown) (7) Shakiness: (units (unknown) date) unknown) (unknown) (no (unknown) (unknown) 07/05/22 1328 (units ( unknown) date) unknown) (unknown) (no (unknown) (unknown) 07/05/22 (units (unkno wn) date) unknown) (unknown) (no (unknown) (unknown) 07/05/22] (units (unkn own) date) unknown) (unknown) (no (unknown) (unknown) 05/29/22 [Rx (units (u nknown) date) Confirmed 07/05/22] unknown) (unknown) (no (unknown) (unknown) [id number] (units (unkno wn) date) unknown) (unknown) (no (unknown) (unknown) 2-3 days, tries to (units (unknown) date) lie down and takes unknown) some tylenol for the pain. (unknown) (no (unknown) (unknown) 29 mins (units (unkno wn) date) unknown) (unknown) (no (unknown) (unknown) 4 weeks or sooner (units (unknown) date) as needed. unknown) (unknown) (no (unknown) (unknown) 41F presents via (units (unknown) date) v-see telehealth to unknown) follow up about her medications and the (unknown) (no (unknown) (unknown) 41F presents via (units (unknown) date) v-see to follow up unknown) about SSRI syndrome symptoms (shakines) and (unknown) (no (unknown) (unknown) ADHD () (units (u nknown) date) unknown) (unknown) (no (unknown) (unknown) Abnormal Pap smear (units (unknown) date) of cervix () unknown) (unknown) (no (unknown) (unknown) Add'l Plan Details (units (unknown) date) unknown) (unknown) (no (unknown) (unknown) Add'l Plan*: (units (u nknown) date) unknown) (unknown) (no (unknown) (unknown) Age/Sex: 41 / F (units (unknown) date) Date of Service: unknown) (unknown) (no (unknown) (unknown) All participants + (units (unknown) date) their role: unknown) (Providers,Parent,Sp ouse,etc): (unknown) (no (unknown) (unknown) Allergies (-1988) (units (unknown) date) unknown) (unknown) (no (unknown) (unknown) Allergies (units (unkn own) date) unknown) (unknown) (no (unknown) (unknown) [place] [address] (unit s (unknown) date) unknown) (unknown) (no (unknown) (unknown) Anesthesia (units (unk nown) date) unknown) (unknown) (no (unknown) (unknown) Anxiety (-2002) (units (unknown) date) unknown) (unknown) (no (unknown) (unknown) Assessment + Plan (units (unknown) date) unknown) (unknown) (no (unknown) (unknown) Attending Dr: (units ( unknown) date) Mari DONG unknown) (unknown) (no (unknown) (unknown) Back pain at L4-L5 (units (unknown) date) level () unknown) (unknown) (no (unknown) (unknown) Biliary colic (units ( unknown) date) unknown) (unknown) (no (unknown) (unknown) Called to discuss (units (unknown) date) these symptoms and unknown) she was advised to stop the Nortriptyline. (unknown) (no (unknown) (unknown) Chicken pox () (unit s (unknown) date) unknown) (unknown) (no (unknown) (unknown) Chief Complaint (units (unknown) date) unknown) (unknown) (no (unknown) (unknown) Chief Complaint: (units (unknown) date) Review medications, unknown) c/o tremulousness (unknown) (no (unknown) (unknown) Chronic hip pain, (units (unknown) date) bilateral unknown) (unknown) (no (unknown) (unknown) Chronic right hip (units (unknown) date) pain unknown) (unknown) (no (unknown) (unknown) Code(s): G44.229 - (units (unknown) date) Chronic tension-type unknown) headache, not intractable (unknown) (no (unknown) (unknown) Colon polyps (units (u nknown) date) () unknown) (unknown) (no (unknown) (unknown) Confirmed 07/05/22] (unit s (unknown) date) unknown) (unknown) (no (unknown) (unknown) Const (units (unkno wn) date) unknown) (unknown) (no (unknown) (unknown) : 1980 (units (unknown) date) Acct:[id number] unknown) (unknown) (no (unknown) (unknown) Day 1: 24 mg on day (unit s (unknown) date) 1 administered as 8 unknown) mg (2 tablets) before breakfast, 4 mg (unknown) (no (unknown) (unknown) Day 2: 20 mg on day (unit s (unknown) date) 2 administered as 4 unknown) mg (1 tablet) before breakfast, 4 mg (unknown) (no (unknown) (unknown) Day 3: 16 mg on day (unit s (unknown) date) 3 administered as 4 unknown) mg (1 tablet) before breakfast, 4 mg (unknown) (no (unknown) (unknown) Day 4: 12 mg on day (unit s (unknown) date) 4 administered as 4 unknown) mg (1 tablet) before breakfast, 4 mg (unknown) (no (unknown) (unknown) Day 5: 8 mg on day (units (unknown) date) 5 administered as 4 unknown) mg (1 tablet) before breakfast and 4 (unknown) (no (unknown) (unknown) Day 6: 4 mg on day (units (unknown) date) 6 administered as 4 unknown) mg (1 tablet) before breakfast. 4 mg (unknown) (no (unknown) (unknown) Depression (-2002) (units (unknown) date) unknown) (unknown) (no (unknown) (unknown) Depression Type: (units (unknown) date) unspecified unknown) Qualified Code(s): F32.A - Depression, (unknown) (no (unknown) (unknown) Dept at (units (unkno wn) date) . unknown) (unknown) (no (unknown) (unknown) Details: (units (unkno wn) date) unknown) (unknown) (no (unknown) (unknown) Diabetes mellitus (units (unknown) date) unknown) (unknown) (no (unknown) (unknown) Diarrhea (units (unkno wn) date) unknown) (unknown) (no (unknown) (unknown) Discontinued (units (u nknown) date) Reason: Order Change unknown) 20 mg PO DAILY 30 caps 1RF (unknown) (no (unknown) (unknown) Discontinued (units (u nknown) date) Reason: Patient no unknown) longer taking 10 mg PO BEDTIME 30 caps 1RF (unknown) (no (unknown) (unknown) Discontinued (units (u nknown) date) unknown) (unknown) (no (unknown) (unknown) Documented By: (units (unknown) date) Mari Skinner unknown) 07/05/22 0906 (unknown) (no (unknown) (unknown) Effexor Adverse (units (unknown) date) Reaction (Mild, unknown) Uncoded 04/10/22 12:15) (unknown) (no (unknown) (unknown) Exam Narrative (units (unknown) date) unknown) (unknown) (no (unknown) (unknown) Exam Narrative: (units (unknown) date) unknown) (unknown) (no (unknown) (unknown) Exam (units (unkno wn) date) unknown) (unknown) (no (unknown) (unknown) Fall (units (unkno wn) date) unknown) (unknown) (no (unknown) (unknown) Family History (units (unknown) date) (Reviewed 07/05/22 @ unknown) 09:18 by IKER Ying) (unknown) (no (unknown) (unknown) Family Practice (units (unknown) date) Office Visit unknown) (unknown) (no (unknown) (unknown) Father (units (unknown) date) Cancer unknown) (unknown) (no (unknown) (unknown) Feels fatigued, but (unit s (unknown) date) aware this is a unknown) 'part of the fibromyalgia.' Thought this (unknown) (no (unknown) (unknown) Fibroids (-2017) (units (unknown) date) unknown) (unknown) (no (unknown) (unknown) Fibromyalgia (units (u nknown) date) unknown) (unknown) (no (unknown) (unknown) [facility] unknown) (unknown) (no (unknown) (unknown) Forgetfulness (units ( unknown) date) unknown) (unknown) (no (unknown) (unknown) G89.29 - Other (units (unknown) date) chronic pain, R51 - unknown) Headache, R51.9 - Headache, unspecified (unknown) (no (unknown) (unknown) Grandfather Lung (units (unknown) date) cancer unknown) (unknown) (no (unknown) (unknown) Grandmother (units (un known) date) Cancer unknown) (unknown) (no (unknown) (unknown) HPI (units (unkno wn) date) unknown) (unknown) (no (unknown) (unknown) Headache type: (units (unknown) date) tension-type unknown) Headache chronicity pattern: chronic (unknown) (no (unknown) (unknown) Headache type: (units (unknown) date) tension-type unknown) Intractability: not intractable Qualified (unknown) (no (unknown) (unknown) Heavy menstrual (units (unknown) date) period unknown) (unknown) (no (unknown) (unknown) History of bipolar (units (unknown) date) disorder unknown) (unknown) (no (unknown) (unknown) History of heart (units (unknown) date) disease unknown) (unknown) (no (unknown) (unknown) History of (units (unk nown) date) placement of ear unknown) tubes (-02/08/86) (unknown) (no (unknown) (unknown) History of (units (unk nown) date) recurrent ear unknown) infection (unknown) (no (unknown) (unknown) Hypertension (units (u nknown) date) unknown) (unknown) (no (unknown) (unknown) In light of this, (units (unknown) date) we will refrain from unknown) using multiple medications that are (unknown) (no (unknown) (unknown) Intake (units (unkno wn) date) unknown) (unknown) (no (unknown) (unknown) Left shoulder pain (units (unknown) date) unknown) (unknown) (no (unknown) (unknown) Liver cancer (units (u nknown) date) unknown) (unknown) (no (unknown) (unknown) Loc: [facility] (units (unkno wn) date) unknown) (unknown) (no (unknown) (unknown) Location of (units (un known) date) patient:: home unknown) (unknown) (no (unknown) (unknown) Location of (units (un known) date) provider:: office unknown) (unknown) (no (unknown) (unknown) Medical History (units (unknown) date) (Reviewed 07/05/22 @ unknown) 09:18 by IKER Ying) (unknown) (no (unknown) (unknown) Medications (units (un known) date) unknown) (unknown) (no (unknown) (unknown) Medications: (units (u nknown) date) unknown) (unknown) (no (unknown) (unknown) Mental health (units ( unknown) date) problem unknown) (unknown) (no (unknown) (unknown) Migraines (-1993) (units (unknown) date) unknown) (unknown) (no (unknown) (unknown) Mother (units (unknown) date) Hyperlipidemia unknown) (unknown) (no (unknown) (unknown) Multi Vitamin (units ( unknown) date) 11/04/17 [History unknown) Confirmed 07/05/22] (unknown) (no (unknown) (unknown) New (units (unkno wn) date) unknown) (unknown) (no (unknown) (unknown) Non-healing wound (units (unknown) date) unknown) (unknown) (no (unknown) (unknown) Not currently (units ( unknown) date) unknown) (unknown) (no (unknown) (unknown) PFSH (units (unkno wn) date) unknown) (unknown) (no (unknown) (unknown) PO DAILY 21 ea 0RF (units (unknown) date) unknown) (unknown) (no (unknown) (unknown) Painful menstrual (units (unknown) date) periods unknown) (unknown) (no (unknown) (unknown) Patient consented (units (unknown) date) to receive services unknown) via telehealth?: Yes (unknown) (no (unknown) (unknown) Patient was placed (units (unknown) date) on Cymbalta as well unknown) as Nortriptyline for her symptoms of pain (unknown) (no (unknown) (unknown) Patient: (units (unkno wn) date) Kirsten Deng N MR#: unknown) M000 (unknown) (no (unknown) (unknown) Piriformis syndrome (unit s (unknown) date) of both sides unknown) (unknown) (no (unknown) (unknown) Pt has history of (units (unknown) date) mono. She is unknown) interested in getting tested for EB virus. Pt (unknown) (no (unknown) (unknown) Pt tolerating (units ( unknown) date) Duloxetine without unknown) side effects. She feels she is not feeling the (unknown) (no (unknown) (unknown) Pt with chronic (units (unknown) date) headaches that are unknown) increasing in frequency. They start at the (unknown) (no (unknown) (unknown) Pt with worsening (units (unknown) date) back pain. Offered unknown) steroid pack to help with pain. Pt in (unknown) (no (unknown) (unknown) Pt's migraines have (unit s (unknown) date) increased in unknown) frequency, she thinks perhaps related to (unknown) (no (unknown) (unknown) Qualifiers: (units (un known) date) unknown) (unknown) (no (unknown) (unknown) ROS (units (unkno wn) date) unknown) (unknown) (no (unknown) (unknown) Real-time,sychronou (unit s (unknown) date) s services were unknown) performed via:: v-see (unknown) (no (unknown) (unknown) Reason For Visit (units (unknown) date) unknown) (unknown) (no (unknown) (unknown) Reports as per HPI (units (unknown) date) unknown) (unknown) (no (unknown) (unknown) Reviewed labs (units (u nknown) date) together as well as unknown) 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, LOW for heart attack and (unknown) (no (unknown) (unknown) Right shoulder pain (unit s (unknown) date) unknown) (unknown) (no (unknown) (unknown) Sciatic leg pain (units (unknown) date) unknown) (unknown) (no (unknown) (unknown) Scoliosis (-1989) (units (unknown) date) unknown) (unknown) (no (unknown) (unknown) She has recently (units (unknown) date) been experiencing unknown) 5-6 migraines per month, and can last up to (unknown) (no (unknown) (unknown) Signed By: (units (unk nown) date) <Electronically unknown) signed by Mari Skinner> (unknown) (no (unknown) (unknown) Signed (units (unkno wn) date) unknown) (unknown) (no (unknown) (unknown) Since that time the (unit s (unknown) date) tremulousness and unknown) shakiness has resolved. She is worried (unknown) (no (unknown) (unknown) Skin changes of (units (unknown) date) breasts unknown) (unknown) (no (unknown) (unknown) Smoking Status: (units (unknown) date) Current some day unknown) smoker (unknown) (no (unknown) (unknown) Social History (units (unknown) date) unknown) (unknown) (no (unknown) (unknown) Sore throat is due (units (unknown) date) to coughing. Right unknown) ear with swelling, feels like 'there's a (unknown) (no (unknown) (unknown) Status: Acute (units ( unknown) date) unknown) (unknown) (no (unknown) (unknown) Status: Chronic (units (unknown) date) unknown) (unknown) (no (unknown) (unknown) Surgical History (units (unknown) date) (Reviewed 07/05/22 @ unknown) 09:18 by IKER Ying) (unknown) (no (unknown) (unknown) Take 1 capsule (units (unknown) date) twice daily 30 mg PO unknown) BID 180 caps 3RF F32.A - Depression, (unknown) (no (unknown) (unknown) TeleHealth (units (unk nown) date) unknown) (unknown) (no (unknown) (unknown) This note may have (units (unknown) date) been all or unknown) partially generated using voice recognition (unknown) (no (unknown) (unknown) Thyroid disease (units (unknown) date) unknown) (unknown) (no (unknown) (unknown) Time Coding Minutes (unit s (unknown) date) Spent: (must be on unknown) same date of service/appointment) (unknown) (no (unknown) (unknown) Time Spent (units (unk nown) date) unknown) (unknown) (no (unknown) (unknown) Tobacco + Substance (unit s (unknown) date) Use unknown) (unknown) (no (unknown) (unknown) Tobacco Status (units (unknown) date) unknown) (unknown) (no (unknown) (unknown) UTI (urinary tract (units (unknown) date) infection) unknown) (unknown) (no (unknown) (unknown) Vaginal delivery (units (unknown) date) unknown) (unknown) (no (unknown) (unknown) Visit Reasons: (units (unknown) date) VIDEO Med Review; unknown) shaky/tremors 01 (unknown) (no (unknown) (unknown) Were services (units ( unknown) date) performed via unknown) telephone only?: No (unknown) (no (unknown) (unknown) [Rx Confirmed (units ( unknown) date) 07/05/22] unknown) (unknown) (no (unknown) (unknown) about her (units (unkn own) date) cholesterol. unknown) (unknown) (no (unknown) (unknown) acetaminophen 325 (units (unknown) date) mg capsule (Tylenol) unknown) 650 mg PO QID PRN pain #60 caps 02/28/22 (unknown) (no (unknown) (unknown) alcohol intake: (units (unknown) date) never unknown) (unknown) (no (unknown) (unknown) amoxicillin Adverse (unit s (unknown) date) Reaction (Verified unknown) 04/10/22 10:58) (unknown) (no (unknown) (unknown) and insomnia in (units (unknown) date) early May, and unknown) approx 1 month later, started experiencing (unknown) (no (unknown) (unknown) base of her skull (units (unknown) date) and wrap around the unknown) sides, which sounds like a tension (unknown) (no (unknown) (unknown) bedtime or 24 mg (6 (unit s (unknown) date) tablets) as a single unknown) dose or divided into 2 or 3 doses upon (unknown) (no (unknown) (unknown) bedtime. (units (unkno wn) date) unknown) (unknown) (no (unknown) (unknown) but sometimes green (unit s (unknown) date) intermittently. Has unknown) some mild pain/pressure in her sinuses. (unknown) (no (unknown) (unknown) butalbital-acetamin (unit s (unknown) date) ophen-caff 50-325-40 unknown) mg 1 tab PO Q4-6H PRN 30 tabs 1RF pain (unknown) (no (unknown) (unknown) butalbital-acetamin (unit s (unknown) date) ophen-caffeine 50 unknown) mg-325 mg-40 mg tablet 1 tab PO Q4-6H PRN (unknown) (no (unknown) (unknown) dextroamphetamine-a (unit s (unknown) date) mphetamine ER 30 mg unknown) 24hr capsule,extend release 30 mg PO QAM (unknown) (no (unknown) (unknown) diclofenac sodium (units (unknown) date) 75 mg tablet,delayed unknown) release 75 mg PO BID PRN pain #60 tabs (unknown) (no (unknown) (unknown) duloxetine 30 mg (units (unknown) date) capsule,delayed unknown) release 30 mg PO BID #180 caps 07/05/22 [Rx (unknown) (no (unknown) (unknown) duloxetine (units (unk nown) date) unknown) (unknown) (no (unknown) (unknown) experiencing (units (u nknown) date) difficulty texting. unknown) She started experiencing difficulty walking. (unknown) (no (unknown) (unknown) favor. (units (unkno wn) date) unknown) (unknown) (no (unknown) (unknown) feeling like she (units (unknown) date) was 'shaky inside,' unknown) but the tremors became worse and she was (unknown) (no (unknown) (unknown) fibromyalgia type (units (unknown) date) pain that starts in unknown) her upper neck and moves into her head. (unknown) (no (unknown) (unknown) full potential (units ( unknown) date) benefit of pain unknown) management both physically and psychologically on (unknown) (no (unknown) (unknown) gabapentin 300 mg (units (unknown) date) capsule 300 mg PO unknown) TID #450 caps 01/25/22 [Rx Confirmed (unknown) (no (unknown) (unknown) has been ill since (units (unknown) date) prior to [place] unknown) with a cough and sore throat. The (unknown) (no (unknown) (unknown) have occurred. If (units (unknown) date) there are any unknown) questions, please contact the Medical Records (unknown) (no (unknown) (unknown) headache (units (unkno wn) date) Intractability: not unknown) intractable Qualified Code(s): G44.229 - Chronic (unknown) (no (unknown) (unknown) headache. Recommend (unit s (unknown) date) she trial Fioricet 1 unknown) tab every 4-6 hours as needed for the (unknown) (no (unknown) (unknown) her recent labs. (units (unknown) date) unknown) (unknown) (no (unknown) (unknown) household members: (units (unknown) date) significant other unknown) and children (unknown) (no (unknown) (unknown) initiation (units (unk nown) date) (regardless of time unknown) of day). (unknown) (no (unknown) (unknown) marital status: (units (unknown) date) unmarried,living unknown) together (unknown) (no (unknown) (unknown) may occur. (units (unk nown) date) Occasional unknown) wrong-word or 'sound-alike' substitutions may have (unknown) (no (unknown) (unknown) methylprednisolone 4 (unit s (unknown) date) mg tablets in a dose unknown) pack 4 mg PO DAILY #21 ea 07/05/22 [Rx (unknown) (no (unknown) (unknown) methylprednisolone (units (unknown) date) unknown) (unknown) (no (unknown) (unknown) mg (1 tablet) at (units (unknown) date) bedtime. unknown) (unknown) (no (unknown) (unknown) nortriptyline (units ( unknown) date) unknown) (unknown) (no (unknown) (unknown) occupational (units (u nknown) date) status: employed unknown) (unknown) (no (unknown) (unknown) occurred due to the (unit s (unknown) date) inherent limitations unknown) of voice recognition software. Please (unknown) (no (unknown) (unknown) of stress through (units (unknown) date) the holidays. unknown) Shakiness started about a month after she (unknown) (no (unknown) (unknown) pain #30 tabs (units ( unknown) date) 07/05/22 [Rx unknown) Confirmed 07/05/22] (unknown) (no (unknown) (unknown) pain, common side (units (unknown) date) effects, risks unknown) verses benefits of treatment. Pt in favor of (unknown) (no (unknown) (unknown) patient and (units (un known) date) provider unknown) (unknown) (no (unknown) (unknown) pimple in there.' (units (unknown) date) unknown) (unknown) (no (unknown) (unknown) psychoactive, if (units (unknown) date) able. unknown) (unknown) (no (unknown) (unknown) read the note (units ( unknown) date) carefully and unknown) recognize, using context, where these substitutions (unknown) (no (unknown) (unknown) shakiness that (units (unknown) date) progressively unknown) worsened over the course of 1-2 weeks. She has (unknown) (no (unknown) (unknown) since stopped the (units (unknown) date) Nortriptyline. unknown) Reviewed other symptoms of SSRI syndrome with (unknown) (no (unknown) (unknown) software. Although (units (unknown) date) every effort is made unknown) to edit content, cathode builder errors (unknown) (no (unknown) (unknown) started on (units (unk nown) date) Nortriptyline and unknown) Duloxetine by a colleague. Was experiencing a lot (unknown) (no (unknown) (unknown) started the (units (un known) date) medication. She unknown) continues to take Cymbalta. Pt reports that she was (unknown) (no (unknown) (unknown) stroke risk in the (units (unknown) date) next 10 years. unknown) Repeat labs 1 year. (unknown) (no (unknown) (unknown) substance use type: (unit s (unknown) date) does not use unknown) (unknown) (no (unknown) (unknown) symptoms seem to (units (unknown) date) improve but then unknown) gets worse again. Ears plugged bilaterally. (unknown) (no (unknown) (unknown) tension-type (units (u nknown) date) headache, not unknown) intractable (unknown) (no (unknown) (unknown) that the cough is (units (unknown) date) not loosening up to unknown) spit it out. Nasal drainage is yellow, (unknown) (no (unknown) (unknown) the future. (units (un known) date) unknown) (unknown) (no (unknown) (unknown) the low dose. We (units (unknown) date) can increase dosing unknown) to 30mg twice per day. Recommend f/up in 3 (unknown) (no (unknown) (unknown) the patient and (units (unknown) date) encouraged her to unknown) call if she ever experiences these symptoms in (unknown) (no (unknown) (unknown) therapeutic use: (units (unknown) date) unknown) (unknown) (no (unknown) (unknown) tremulousness she (units (unknown) date) was experiencing unknown) since starting the Nortriptyline. Patient was (unknown) (no (unknown) (unknown) trial. (units (unkno wn) date) unknown) (unknown) (no (unknown) (unknown) unspecified (units (un known) date) unknown) (unknown) (no (unknown) (unknown) unspecified, F41.9 (units (unknown) date) - Anxiety disorder, unknown) unspecified, M79.7 - Fibromyalgia (unknown) (no (unknown) (unknown) was a cold. Denies (units (unknown) date) fevers, but does unknown) have flushing intermittently. She reports Result panel 93 (unknown) (no (unknown) (unknown) (no value) (units (unk nown) date) unknown) (unknown) (no (unknown) (unknown) (1) Fibromyalgia: (units (unknown) date) unknown) (unknown) (no (unknown) (unknown) (2) Depression: (units (unknown) date) unknown) (unknown) (no (unknown) (unknown) ADDENDUM (units (u nknown) date) unknown) (unknown) (no (unknown) (unknown) -add a short (units (u nknown) date) course of ketorolac unknown) as an anti-inflammatory for 5 days only (unknown) (no (unknown) (unknown) -add duloxetine (units (unknown) date) for nerve pain unknown) (unknown) (no (unknown) (unknown) -added (units (unkno wn) date) nortriptyline at unknown) night to help with sleep and nerve pain hopefully. (unknown) (no (unknown) (unknown) -after the (units (unk nown) date) ketorolac, start unknown) Voltaren twice daily with food for an (unknown) (no (unknown) (unknown) -consider (units (unkn own) date) switching unknown) gabapentin to lyrica if needed. (unknown) (no (unknown) (unknown) -decrease (units (unkn own) date) nighttime unknown) gabapentin to 600 mg for 3-4 days then decrease to 300 mg. (unknown) (no (unknown) (unknown) -follow up with (units (unknown) date) Mari Skinner to unknown) discuss further (unknown) (no (unknown) (unknown) -remain active, (units (unknown) date) regular stretching unknown) (unknown) (no (unknown) (unknown) -stay warm. (units (un known) date) unknown) (unknown) (no (unknown) (unknown) -stop the (units (unkn own) date) Celebrex. unknown) (unknown) (no (unknown) (unknown) -take 500 mg of (units (unknown) date) tylenol every 6 unknown) hours as needed for pain (unknown) (no (unknown) (unknown) 07/06/22 1423 (units ( unknown) date) unknown) (unknown) (no (unknown) (unknown) 05/29/22 1427 (units ( unknown) date) unknown) (unknown) (no (unknown) (unknown) 05/29/22 (units (unkno wn) date) unknown) (unknown) (no (unknown) (unknown) [id number] (units (unkno wn) date) unknown) (unknown) (no (unknown) (unknown) 1RF pain (units (unkno wn) date) unknown) (unknown) (no (unknown) (unknown) ADHD (-1982) (units (u nknown) date) unknown) (unknown) (no (unknown) (unknown) Abnormal Pap smear (units (unknown) date) of cervix () unknown) (unknown) (no (unknown) (unknown) Addendum (units (unkno wn) date) Documented By: Cuong unknownSalvador Cruz (unknown) (no (unknown) (unknown) Addendum Signed (units (unknown) date) By: <Electronically unknown) signed by Cuong Cruz> (unknown) (no (unknown) (unknown) Age/Sex: 41 / F (units (unknown) date) Date of Service: unknown) (unknown) (no (unknown) (unknown) All participants + (units (unknown) date) their roles: pt and unknown) provider (unknown) (no (unknown) (unknown) Allergies (-1988) (units (unknown) date) unknown) (unknown) (no (unknown) (unknown) Allergies (units (unkn own) date) unknown) (unknown) (no (unknown) (unknown) Allergies: (units (unk nown) date) Reviewed unknown) (unknown) (no (unknown) (unknown) [place], [place] (units ( unknown) date) [id number] unknown) (unknown) (no (unknown) (unknown) Anesthesia (units (unk nown) date) unknown) (unknown) (no (unknown) (unknown) Anxiety () (units (unknown) date) unknown) (unknown) (no (unknown) (unknown) Assessment + Plan (units (unknown) date) unknown) (unknown) (no (unknown) (unknown) Attending Dr: Cuong (units (unknown) date) Nancy Spencer unknown) (unknown) (no (unknown) (unknown) Back pain at L4-L5 (units (unknown) date) level () unknown) (unknown) (no (unknown) (unknown) Biliary colic (units ( unknown) date) unknown) (unknown) (no (unknown) (unknown) CHEST: Normal (units ( unknown) date) respiratory effort unknown) (unknown) (no (unknown) (unknown) Cardiovascular: (units (unknown) date) Negative.? unknown) (unknown) (no (unknown) (unknown) Chicken pox (units (un known) date) () unknown) (unknown) (no (unknown) (unknown) Chief Complaint: (units (unknown) date) fibromyalgia pain unknown) (unknown) (no (unknown) (unknown) Chronic hip pain, (units (unknown) date) bilateral unknown) (unknown) (no (unknown) (unknown) Chronic right hip (units (unknown) date) pain unknown) (unknown) (no (unknown) (unknown) Colon polyps (units (u nknown) date) () unknown) (unknown) (no (unknown) (unknown) Constitutional: (units (unknown) date) Negative.? unknown) (unknown) (no (unknown) (unknown) : 1980 (units (unknown) date) Acct:[id number] unknown) (unknown) (no (unknown) (unknown) Depression () (units (unknown) date) unknown) (unknown) (no (unknown) (unknown) Depression Type: (units (unknown) date) unspecified unknown) Qualified Code(s): F32.A - Depression, (unknown) (no (unknown) (unknown) Dept at (units (unkno wn) date) . unknown) (unknown) (no (unknown) (unknown) Diabetes mellitus (units (unknown) date) unknown) (unknown) (no (unknown) (unknown) Diarrhea (units (unkno wn) date) unknown) (unknown) (no (unknown) (unknown) Discontinued (units (u nknown) date) Reason: Dose Change unknown) 200 mg PO BID 180 caps 3RF M79.7 (unknown) (no (unknown) (unknown) Discontinued (units (u nknown) date) unknown) (unknown) (no (unknown) (unknown) Documented By: (units (unknown) date) Cuong Cruz unknown) 05/29/22 1412 (unknown) (no (unknown) (unknown) EYES: PERRL, EOMI (units (unknown) date) and nonicteric unknown) (unknown) (no (unknown) (unknown) Effexor Adverse (units (unknown) date) Reaction (Mild, unknown) Uncoded 04/10/22 12:15) (unknown) (no (unknown) (unknown) Endocrine: (units (unk nown) date) Negative.? unknown) (unknown) (no (unknown) (unknown) Fall (units (unkno wn) date) unknown) (unknown) (no (unknown) (unknown) Family History (units (unknown) date) (Reviewed 04/10/22 unknown) @ 17:34 by IKER Ying) (unknown) (no (unknown) (unknown) Family Practice (units (unknown) date) Office Visit unknown) (unknown) (no (unknown) (unknown) Father (units (unknown) date) Cancer unknown) (unknown) (no (unknown) (unknown) Fibroids (-2018) (units (unknown) date) unknown) (unknown) (no (unknown) (unknown) Fibromyalgia (units (u nknown) date) unknown) (unknown) (no (unknown) (unknown) [facility]) (unknown) (no (unknown) (unknown) Forgetfulness (units ( unknown) date) unknown) (unknown) (no (unknown) (unknown) GENERAL: Well (units ( unknown) date) developed, well unknown) nourished.? Cooperative with exam.? Patient is in (unknown) (no (unknown) (unknown) Gastrointestinal: (units (unknown) date) Negative.? unknown) (unknown) (no (unknown) (unknown) Genitourinary: (units (unknown) date) Negative.? unknown) (unknown) (no (unknown) (unknown) Grandfather Lung (units (unknown) date) cancer unknown) (unknown) (no (unknown) (unknown) Grandmother (units (un known) date) Cancer unknown) (unknown) (no (unknown) (unknown) HEAD: Atraumatic, (units (unknown) date) Normocephalic unknown) (unknown) (no (unknown) (unknown) Heavy menstrual (units (unknown) date) period unknown) (unknown) (no (unknown) (unknown) History of bipolar (units (unknown) date) disorder unknown) (unknown) (no (unknown) (unknown) History of heart (units (unknown) date) disease unknown) (unknown) (no (unknown) (unknown) History of (units (unk nown) date) placement of ear unknown) tubes (02/08/86) (unknown) (no (unknown) (unknown) History of (units (unk nown) date) recurrent ear unknown) infection (unknown) (no (unknown) (unknown) Hypertension (units (u nknown) date) unknown) (unknown) (no (unknown) (unknown) I reviewed the (units (unknown) date) patient's Past unknown) Medical History, Problem List, Medications and (unknown) (no (unknown) (unknown) Intake (units (unkno wn) date) unknown) (unknown) (no (unknown) (unknown) Left shoulder pain (units (unknown) date) unknown) (unknown) (no (unknown) (unknown) Liver cancer (units (u nknown) date) unknown) (unknown) (no (unknown) (unknown) Loc: [facility] (units (unkno wn) date) unknown) (unknown) (no (unknown) (unknown) Location of (units (un known) date) provider: Clinic unknown) (unknown) (no (unknown) (unknown) Location of pt: (units (unknown) date) home unknown) (unknown) (no (unknown) (unknown) Medical History (units (unknown) date) (Reviewed 04/10/22 unknown) @ 17:34 by IKER Ying) (unknown) (no (unknown) (unknown) Medications: (units (u nknown) date) Reconciled unknown) (unknown) (no (unknown) (unknown) Medications: (units (u nknown) date) unknown) (unknown) (no (unknown) (unknown) Mental health (units ( unknown) date) problem unknown) (unknown) (no (unknown) (unknown) Migraines (-1993) (units (unknown) date) unknown) (unknown) (no (unknown) (unknown) Mother (units (unknown) date) Hyperlipidemia unknown) (unknown) (no (unknown) (unknown) NECK: Full range (units (unknown) date) of motion, unknown) (unknown) (no (unknown) (unknown) NEURO EXAM: Alert (units (unknown) date) and oriented x 3.? unknown) (unknown) (no (unknown) (unknown) Neurological: (units ( unknown) date) Negative.? unknown) (unknown) (no (unknown) (unknown) New (units (unkno wn) date) unknown) (unknown) (no (unknown) (unknown) Non-healing wound (units (unknown) date) unknown) (unknown) (no (unknown) (unknown) Not currently (units ( unknown) date) unknown) (unknown) (no (unknown) (unknown) Note (units (unkno wn) date) unknown) (unknown) (no (unknown) (unknown) Note: (units (unkno wn) date) unknown) (unknown) (no (unknown) (unknown) Notes (units (unkno wn) date) unknown) (unknown) (no (unknown) (unknown) Objective: (units (unk nown) date) unknown) (unknown) (no (unknown) (unknown) PFSH (units (unkno wn) date) unknown) (unknown) (no (unknown) (unknown) PSYCH: judgement (units (unknown) date) normal, orientation unknown) normal, affect/mood normal and memory (unknown) (no (unknown) (unknown) Painful menstrual (units (unknown) date) periods unknown) (unknown) (no (unknown) (unknown) Patient with (units (u nknown) date) history of unknown) fibromyalgia. She states that she is having worsening 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 (unknown) (no (unknown) (unknown) Plan (units (unkno wn) date) unknown) (unknown) (no (unknown) (unknown) Pt consented to (units (unknown) date) receive services unknown) via telehealth?: Yes (unknown) (no (unknown) (unknown) Qualifiers: (units (un known) date) unknown) (unknown) (no (unknown) (unknown) Real-time, (units (unk nown) date) synchronous unknown) services were performed via: audio + video (unknown) (no (unknown) (unknown) Reason For Visit (units (unknown) date) unknown) (unknown) (no (unknown) (unknown) Respiratory: (units (u nknown) date) developing mild URI unknown) sx's (unknown) (no (unknown) (unknown) Review of Systems: (units (unknown) date) unknown) (unknown) (no (unknown) (unknown) Right shoulder (units (unknown) date) pain unknown) (unknown) (no (unknown) (unknown) SKIN:? No rashes (units (unknown) date) on face unknown) (unknown) (no (unknown) (unknown) Sciatic leg pain (units (unknown) date) unknown) (unknown) (no (unknown) (unknown) Scoliosis () (units (unknown) date) unknown) (unknown) (no (unknown) (unknown) She is taking 900 (units (unknown) date) mg of gabapentin at unknown) night then 300 mg in the morning and (unknown) (no (unknown) (unknown) Signed By: (units (unk nown) date) <Electronically unknown) signed by Cuong Cruz> (unknown) (no (unknown) (unknown) Signed with (units (un known) date) Addenda unknown) (unknown) (no (unknown) (unknown) Skin changes of (units (unknown) date) breasts unknown) (unknown) (no (unknown) (unknown) Smoking Status: (units (unknown) date) Current some day unknown) smoker (unknown) (no (unknown) (unknown) Social History (units (unknown) date) (including tobacco unknown) use status). (unknown) (no (unknown) (unknown) Social History (units (unknown) date) unknown) (unknown) (no (unknown) (unknown) Status: Acute (units ( unknown) date) unknown) (unknown) (no (unknown) (unknown) Status: Chronic (units (unknown) date) unknown) (unknown) (no (unknown) (unknown) Subjective: (units (un known) date) unknown) (unknown) (no (unknown) (unknown) Surgical History (units (unknown) date) (Reviewed 04/10/22 unknown) @ 17:34 by IKER Ying) (unknown) (no (unknown) (unknown) This note may have (units (unknown) date) been all or unknown) partially generated using voice recognition (unknown) (no (unknown) (unknown) Thyroid disease (units (unknown) date) unknown) (unknown) (no (unknown) (unknown) Time Spent on (units ( unknown) date) telephone call unknown) only: 10 min (unknown) (no (unknown) (unknown) Tobacco + (units (unkn own) date) Substance Use unknown) (unknown) (no (unknown) (unknown) Tobacco Status (units (unknown) date) unknown) (unknown) (no (unknown) (unknown) UTI (urinary tract (units (unknown) date) infection) unknown) (unknown) (no (unknown) (unknown) Vaginal delivery (units (unknown) date) unknown) (unknown) (no (unknown) (unknown) Visit Reasons: (units (unknown) date) VIDEO Pain unknown) management 12*[facility] Patient* (unknown) (no (unknown) (unknown) Vital Signs: (units (u nknown) date) Reviewed unknown) (unknown) (no (unknown) (unknown) Voice recognition (units (unknown) date) software was used unknown) in the creation of this note. There may be (unknown) (no (unknown) (unknown) Were services (units ( unknown) date) performed via unknown) telephone only?: no (unknown) (no (unknown) (unknown) afternoon. She is (units (unknown) date) using Celebrex unknown) b.i.d. but these are no longer effective. She (unknown) (no (unknown) (unknown) alcohol intake: (units (unknown) date) never unknown) (unknown) (no (unknown) (unknown) amoxicillin (units (un known) date) Adverse Reaction unknown) (Verified 04/10/22 10:58) (unknown) (no (unknown) (unknown) antiinflammatory (units (unknown) date) unknown) (unknown) (no (unknown) (unknown) celecoxib (units (unkn own) date) unknown) (unknown) (no (unknown) (unknown) diclofenac sodium (units (unknown) date) unknown) (unknown) (no (unknown) (unknown) duloxetine 20 mg (units (unknown) date) PO DAILY 30 caps unknown) 1RF (unknown) (no (unknown) (unknown) have occurred. If (units (unknown) date) there are any unknown) questions, please contact the Medical Records (unknown) (no (unknown) (unknown) her joints. (units (un known) date) unknown) (unknown) (no (unknown) (unknown) household members: (units (unknown) date) significant other unknown) and children (unknown) (no (unknown) (unknown) is having a (units (un known) date) difficult time unknown) doing her daily activities. No new inflammation of (unknown) (no (unknown) (unknown) ketorolac 10 mg PO (units (unknown) date) Q8H 5 days PRN 15 unknown) tabs 0RF pain (unknown) (no (unknown) (unknown) marital status: (units (unknown) date) unmarried,living unknown) together (unknown) (no (unknown) (unknown) may occur. (units (unk nown) date) Occasional unknown) wrong-word or 'sound-alike' substitutions may have (unknown) (no (unknown) (unknown) no apparent (units (un known) date) distress. unknown) (unknown) (no (unknown) (unknown) normal (units (unkno wn) date) unknown) (unknown) (no (unknown) (unknown) nortriptyline 10 (units (unknown) date) mg PO BEDTIME 30 unknown) caps 1RF (unknown) (no (unknown) (unknown) occupational (units (u nknown) date) status: employed unknown) (unknown) (no (unknown) (unknown) occurred due to (units (unknown) date) the inherent unknown) limitations of voice recognition software. Please (unknown) (no (unknown) (unknown) pain or back, hip, (units (unknown) date) knees, shoulders unknown) with the cold weather since May 10. (unknown) (no (unknown) (unknown) read the note (units ( unknown) date) carefully and unknown) recognize, using context, where these substitutions (unknown) (no (unknown) (unknown) software. Although (units (unknown) date) every effort is unknown) made to edit content, cathode builder errors (unknown) (no (unknown) (unknown) start after (units (un known) date) finishing unknown) ketoralac. take with food. 75 mg PO BID PRN 60 tabs (unknown) (no (unknown) (unknown) substance use (units ( unknown) date) type: does not use unknown) (unknown) (no (unknown) (unknown) typographical (units ( unknown) date) errors as a result. unknown) (unknown) (no (unknown) (unknown) unspecified (units (un known) date) unknown) Result panel 94 (unknown) (no (unknown) (unknown) (no value) (units (unk nown) date) unknown) (unknown) (no (unknown) (unknown) 08/01/22 (units (unkno wn) date) unknown) (unknown) (no (unknown) (unknown) [id number] (units (unkno wn) date) unknown) (unknown) (no (unknown) (unknown) 41F presents via (units (unknown) date) v-see to follow unknown) up about her headaches and anxiety, reports (unknown) (no (unknown) (unknown) ADHD (-1982) (units (u nknown) date) unknown) (unknown) (no (unknown) (unknown) Abnormal Pap (units (u nknown) date) smear of cervix unknown) (-2017) (unknown) (no (unknown) (unknown) Age/Sex: 41 / F (units (unknown) date) Date of Service: unknown) (unknown) (no (unknown) (unknown) Allergies (units (unkn own) date) () unknown) (unknown) (no (unknown) (unknown) Allergies (units (unkn own) date) unknown) (unknown) (no (unknown) (unknown) [place], [place] (units ( unknown) date) [id number] unknown) (unknown) (no (unknown) (unknown) Anesthesia (units (unk nown) date) unknown) (unknown) (no (unknown) (unknown) Anxiety () (units (unknown) date) unknown) (unknown) (no (unknown) (unknown) Attending Dr: (units ( unknown) date) Mari DONG unknown) (unknown) (no (unknown) (unknown) Back pain at (units (u nknown) date) L4-L5 level unknown) () (unknown) (no (unknown) (unknown) Biliary colic (units ( unknown) date) unknown) (unknown) (no (unknown) (unknown) Chicken pox (units (un known) date) () unknown) (unknown) (no (unknown) (unknown) Chief Complaint (units (unknown) date) unknown) (unknown) (no (unknown) (unknown) Chief Complaint: (units (unknown) date) f/up headaches, unknown) depression and anxiety (unknown) (no (unknown) (unknown) Chronic hip (units (un known) date) pain, bilateral unknown) (unknown) (no (unknown) (unknown) Chronic right (units ( unknown) date) hip pain unknown) (unknown) (no (unknown) (unknown) Colon polyps (units (u nknown) date) () unknown) (unknown) (no (unknown) (unknown) : 1980 (units (unknown) date) Acct:[id number] unknown) (unknown) (no (unknown) (unknown) Depression (units (unk nown) date) () unknown) (unknown) (no (unknown) (unknown) Dept at (units (unkno wn) date) . unknown) (unknown) (no (unknown) (unknown) Details: (units (unkno wn) date) unknown) (unknown) (no (unknown) (unknown) Diabetes (units (unkno wn) date) mellitus unknown) (unknown) (no (unknown) (unknown) Diarrhea (units (unkno wn) date) unknown) (unknown) (no (unknown) (unknown) Documented By: (units (unknown) date) Mari Skinner unknown) 08/01/22 0903 (unknown) (no (unknown) (unknown) Draft (units (unkno wn) date) unknown) (unknown) (no (unknown) (unknown) Effexor Adverse (units (unknown) date) Reaction (Mild, unknown) Uncoded 04/10/22 12:15) (unknown) (no (unknown) (unknown) Fall (units (unkno wn) date) unknown) (unknown) (no (unknown) (unknown) Family History (units (unknown) date) (Reviewed unknown) 07/05/22 @ 09:18 by IKER Ying) (unknown) (no (unknown) (unknown) Family Practice (units (unknown) date) Office Visit unknown) (unknown) (no (unknown) (unknown) Father (units (unknown) date) Cancer unknown) (unknown) (no (unknown) (unknown) Fibroids (-2018) (units (unknown) date) unknown) (unknown) (no (unknown) (unknown) Fibromyalgia (units (u nknown) date) unknown) (unknown) (no (unknown) (unknown) [facility] unknown) (unknown) (no (unknown) (unknown) Forgetfulness (units ( unknown) date) unknown) (unknown) (no (unknown) (unknown) Grandfather Lung (units (unknown) date) cancer unknown) (unknown) (no (unknown) (unknown) Grandmother (units (un known) date) Cancer unknown) (unknown) (no (unknown) (unknown) HPI (units (unkno wn) date) unknown) (unknown) (no (unknown) (unknown) Heavy menstrual (units (unknown) date) period unknown) (unknown) (no (unknown) (unknown) History of (units (unk nown) date) bipolar disorder unknown) (unknown) (no (unknown) (unknown) History of heart (units (unknown) date) disease unknown) (unknown) (no (unknown) (unknown) History of (units (unk nown) date) placement of ear unknown) tubes (-02/08/86) (unknown) (no (unknown) (unknown) History of (units (unk nown) date) recurrent ear unknown) infection (unknown) (no (unknown) (unknown) Hypertension (units (u nknown) date) unknown) (unknown) (no (unknown) (unknown) Intake (units (unkno wn) date) unknown) (unknown) (no (unknown) (unknown) Left shoulder (units ( unknown) date) pain unknown) (unknown) (no (unknown) (unknown) Liver cancer (units (u nknown) date) unknown) (unknown) (no (unknown) (unknown) Loc: [facility] (units (unkno wn) date) unknown) (unknown) (no (unknown) (unknown) Medical History (units (unknown) date) (Reviewed unknown) 07/05/22 @ 09:18 by IKER Ying) (unknown) (no (unknown) (unknown) Mental health (units ( unknown) date) problem unknown) (unknown) (no (unknown) (unknown) Migraines (units (unkn own) date) (-1993) unknown) (unknown) (no (unknown) (unknown) Mother (units (unknown) date) Hyperlipidemia unknown) (unknown) (no (unknown) (unknown) Non-healing (units (un known) date) wound unknown) (unknown) (no (unknown) (unknown) Not currently (units ( unknown) date) unknown) (unknown) (no (unknown) (unknown) PFSH (units (unkno wn) date) unknown) (unknown) (no (unknown) (unknown) Painful (units (unkno wn) date) menstrual periods unknown) (unknown) (no (unknown) (unknown) Patient: (units (unkno wn) date) Kirsten Deng N unknown) MR#: [id number] (unknown) (no (unknown) (unknown) 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 (unknown) (no (unknown) (unknown) Reason For Visit (units (unknown) date) unknown) (unknown) (no (unknown) (unknown) Right shoulder (units (unknown) date) pain unknown) (unknown) (no (unknown) (unknown) Sciatic leg pain (units (unknown) date) unknown) (unknown) (no (unknown) (unknown) Scoliosis (units (unkn own) date) (-1989) unknown) (unknown) (no (unknown) (unknown) Signed By: (units (unk nown) date) unknown) (unknown) (no (unknown) (unknown) Skin changes of (units (unknown) date) breasts unknown) (unknown) (no (unknown) (unknown) Smoking Status: (units (unknown) date) Current some day unknown) smoker (unknown) (no (unknown) (unknown) Social History (units (unknown) date) unknown) (unknown) (no (unknown) (unknown) Surgical History (units (unknown) date) (Reviewed unknown) 07/05/22 @ 09:18 by IKER Ying) (unknown) (no (unknown) (unknown) This note may (units ( unknown) date) have been all or unknown) partially generated using voice recognition (unknown) (no (unknown) (unknown) Thyroid disease (units (unknown) date) unknown) (unknown) (no (unknown) (unknown) Tobacco + (units (unkn own) date) Substance Use unknown) (unknown) (no (unknown) (unknown) Tobacco Status (units (unknown) date) unknown) (unknown) (no (unknown) (unknown) UTI (urinary (units (u nknown) date) tract infection) unknown) (unknown) (no (unknown) (unknown) Vaginal delivery (units (unknown) date) unknown) (unknown) (no (unknown) (unknown) Visit Reasons: (units (unknown) date) V-see follow up unknown) depression, anxiety, headaches 02 (unknown) (no (unknown) (unknown) alcohol intake: (units (unknown) date) never unknown) (unknown) (no (unknown) (unknown) amoxicillin (units (un known) date) Adverse Reaction unknown) (Verified 04/10/22 10:58) (unknown) (no (unknown) (unknown) have occurred. (units (unknown) date) If there are any unknown) questions, please contact the Medical Records (unknown) (no (unknown) (unknown) household (units (unkn own) date) members: unknown) significant other and children (unknown) (no (unknown) (unknown) marital status: (units (unknown) date) unmarried,living unknown) together (unknown) (no (unknown) (unknown) may occur. (units (unk nown) date) Occasional unknown) wrong-word or 'sound-alike' substitutions may have (unknown) (no (unknown) (unknown) occupational (units (u nknown) date) status: employed unknown) (unknown) (no (unknown) (unknown) occurred due to (units (unknown) date) the inherent unknown) limitations of voice recognition software. Please (unknown) (no (unknown) (unknown) read the note (units ( unknown) date) carefully and unknown) recognize, using context, where these substitutions (unknown) (no (unknown) (unknown) relieving (units (unkn own) date) symptoms or unknown) making it 'more bearable.' (unknown) (no (unknown) (unknown) software. (units (unkn own) date) Although every unknown) effort is made to edit content, cathode builder errors (unknown) (no (unknown) (unknown) substance use (units ( unknown) date) type: does not unknown) use (unknown) (no (unknown) (unknown) that the (units (unkno wn) date) fioricet has been unknown) helpful at relieving headaches, either completely Result panel 95 (unknown) (no (unknown) (unknown) (no value) (units (unk nown) date) unknown) (unknown) (no (unknown) (unknown) #30 caps 08/01/22 (units (unknown) date) [Rx Confirmed unknown) 08/01/22] (unknown) (no (unknown) (unknown) (1 tablet) after (units (unknown) date) lunch, 4 mg (1 unknown) tablet) after supper, and 4 mg (1 tablet) at (unknown) (no (unknown) (unknown) (1 tablet) after (units (unknown) date) lunch, 4 mg (1 unknown) tablet) after supper, and 8 mg (2 tablets) at (unknown) (no (unknown) (unknown) (1 tablet) after (units (unknown) date) lunch, and 4 mg (1 unknown) tablet) at bedtime. (unknown) (no (unknown) (unknown) 08/01/22 (units (unkno wn) date) unknown) (unknown) (no (unknown) (unknown) 08/01/22] (units (unkn own) date) unknown) (unknown) (no (unknown) (unknown) 05/29/22 [Rx (units (u nknown) date) Confirmed 08/01/22] unknown) (unknown) (no (unknown) (unknown) [id number] (units (unkno wn) date) unknown) (unknown) (no (unknown) (unknown) 41F presents via (units (unknown) date) v-see to follow up unknown) about her headaches and anxiety, reports (unknown) (no (unknown) (unknown) 41F presents via (units (unknown) date) v-see to follow up unknown) today about her headaches, ADHD, and (unknown) (no (unknown) (unknown) 60 tabs 3RF pain (units (unknown) date) G89.29 - Other unknown) chronic pain, R51 - Headache, R51.9 - Headache, (unknown) (no (unknown) (unknown) ADHD (-1982) (units (u nknown) date) unknown) (unknown) (no (unknown) (unknown) Abnormal Pap smear (units (unknown) date) of cervix () unknown) (unknown) (no (unknown) (unknown) Age/Sex: 41 / F (units (unknown) date) Date of Service: unknown) (unknown) (no (unknown) (unknown) Allergies () (units (unknown) date) unknown) (unknown) (no (unknown) (unknown) Allergies (units (unkn own) date) unknown) (unknown) (no (unknown) (unknown) [place] [address] (unit s (unknown) date) unknown) (unknown) (no (unknown) (unknown) Anesthesia (units (unk nown) date) unknown) (unknown) (no (unknown) (unknown) Anxiety (-2002) (units (unknown) date) unknown) (unknown) (no (unknown) (unknown) Assessment + Plan (units (unknown) date) unknown) (unknown) (no (unknown) (unknown) Attending Dr: (units ( unknown) date) Mari DONG unknown) (unknown) (no (unknown) (unknown) Back pain at L4-L5 (units (unknown) date) level () unknown) (unknown) (no (unknown) (unknown) Biliary colic (units ( unknown) date) unknown) (unknown) (no (unknown) (unknown) Changed (units (unkno wn) date) unknown) (unknown) (no (unknown) (unknown) Chicken pox () (unit s (unknown) date) unknown) (unknown) (no (unknown) (unknown) Chief Complaint (units (unknown) date) unknown) (unknown) (no (unknown) (unknown) Chief Complaint: (units (unknown) date) f/up headaches, unknown) depression and anxiety (unknown) (no (unknown) (unknown) Chronic hip pain, (units (unknown) date) bilateral unknown) (unknown) (no (unknown) (unknown) Chronic right hip (units (unknown) date) pain unknown) (unknown) (no (unknown) (unknown) Colon polyps (units (u nknown) date) () unknown) (unknown) (no (unknown) (unknown) Confirmed 08/01/22] (unit s (unknown) date) unknown) (unknown) (no (unknown) (unknown) Const (units (unkno wn) date) unknown) (unknown) (no (unknown) (unknown) : 1980 (units (unknown) date) Acct:[id number] unknown) (unknown) (no (unknown) (unknown) Day 1: 24 mg on day (unit s (unknown) date) 1 administered as 8 unknown) mg (2 tablets) before breakfast, 4 mg (unknown) (no (unknown) (unknown) Day 2: 20 mg on day (unit s (unknown) date) 2 administered as 4 unknown) mg (1 tablet) before breakfast, 4 mg (unknown) (no (unknown) (unknown) Day 3: 16 mg on day (unit s (unknown) date) 3 administered as 4 unknown) mg (1 tablet) before breakfast, 4 mg (unknown) (no (unknown) (unknown) Day 4: 12 mg on day (unit s (unknown) date) 4 administered as 4 unknown) mg (1 tablet) before breakfast, 4 mg (unknown) (no (unknown) (unknown) Day 5: 8 mg on day (units (unknown) date) 5 administered as 4 unknown) mg (1 tablet) before breakfast and 4 (unknown) (no (unknown) (unknown) Day 6: 4 mg on day (units (unknown) date) 6 administered as 4 unknown) mg (1 tablet) before breakfast. (unknown) (no (unknown) (unknown) Depression (-2003) (units (unknown) date) unknown) (unknown) (no (unknown) (unknown) Dept at (units (unkno wn) date) . unknown) (unknown) (no (unknown) (unknown) Details: (units (unkno wn) date) unknown) (unknown) (no (unknown) (unknown) Diabetes mellitus (units (unknown) date) unknown) (unknown) (no (unknown) (unknown) Diarrhea (units (unkno wn) date) unknown) (unknown) (no (unknown) (unknown) Discontinued (units (u nknown) date) Reason: Patient no unknown) longer taking 4 mg PO DAILY 21 ea 0RF (unknown) (no (unknown) (unknown) Discontinued (units (u nknown) date) unknown) (unknown) (no (unknown) (unknown) Documented By: (units (unknown) date) Mari Skinner unknown) 08/01/22 0903 (unknown) (no (unknown) (unknown) Draft (units (unkno wn) date) unknown) (unknown) (no (unknown) (unknown) Effexor Adverse (units (unknown) date) Reaction (Mild, unknown) Uncoded 04/10/22 12:15) (unknown) (no (unknown) (unknown) Exam Narrative (units (unknown) date) unknown) (unknown) (no (unknown) (unknown) Exam Narrative: (units (unknown) date) unknown) (unknown) (no (unknown) (unknown) Exam (units (unkno wn) date) unknown) (unknown) (no (unknown) (unknown) Fall (units (unkno wn) date) unknown) (unknown) (no (unknown) (unknown) Family History (units (unknown) date) (Reviewed 08/01/22 @ unknown) 09:14 by Mari Brown, ACCOUNT REVIEW SPECIALIST) (unknown) (no (unknown) (unknown) Family Practice (units (unknown) date) Office Visit unknown) (unknown) (no (unknown) (unknown) Father (units (unknown) date) Cancer unknown) (unknown) (no (unknown) (unknown) Fibroids (-2018) (units (unknown) date) unknown) (unknown) (no (unknown) (unknown) Fibromyalgia (units (u nknown) date) unknown) (unknown) (no (unknown) (unknown) [facility] unknown) (unknown) (no (unknown) (unknown) Forgetfulness (units ( unknown) date) unknown) (unknown) (no (unknown) (unknown) From (units (unkno wn) date) butalbital-acetamino unknown) phen-caff 50-325-40 mg 1 tab PO Q4-6H PRN 30 tabs 1RF (unknown) (no (unknown) (unknown) Grandfather Lung (units (unknown) date) cancer unknown) (unknown) (no (unknown) (unknown) Grandmother (units (un known) date) Cancer unknown) (unknown) (no (unknown) (unknown) HPI (units (unkno wn) date) unknown) (unknown) (no (unknown) (unknown) Heavy menstrual (units (unknown) date) period unknown) (unknown) (no (unknown) (unknown) History of bipolar (units (unknown) date) disorder unknown) (unknown) (no (unknown) (unknown) History of heart (units (unknown) date) disease unknown) (unknown) (no (unknown) (unknown) History of (units (unk nown) date) placement of ear unknown) tubes (-02/08/86) (unknown) (no (unknown) (unknown) History of (units (unk nown) date) recurrent ear unknown) infection (unknown) (no (unknown) (unknown) Hypertension (units (u nknown) date) unknown) (unknown) (no (unknown) (unknown) Intake (units (unkno wn) date) unknown) (unknown) (no (unknown) (unknown) Left shoulder pain (units (unknown) date) unknown) (unknown) (no (unknown) (unknown) Liver cancer (units (u nknown) date) unknown) (unknown) (no (unknown) (unknown) Loc: [facility] (units (unkno wn) date) unknown) (unknown) (no (unknown) (unknown) MM screening mammo (units (unknown) date) BI 1 Week Z12.31 - unknown) Encounter for screening mammogram for (unknown) (no (unknown) (unknown) Medical History (units (unknown) date) (Reviewed 08/01/22 @ unknown) 09:14 by IKER Ying) (unknown) (no (unknown) (unknown) Medications (units (un known) date) unknown) (unknown) (no (unknown) (unknown) Medications: (units (u nknown) date) unknown) (unknown) (no (unknown) (unknown) Mental health (units ( unknown) date) problem unknown) (unknown) (no (unknown) (unknown) Migraines (-1993) (units (unknown) date) unknown) (unknown) (no (unknown) (unknown) Mother (units (unknown) date) Hyperlipidemia unknown) (unknown) (no (unknown) (unknown) Multi Vitamin (units ( unknown) date) 11/04/17 [History unknown) Confirmed 08/01/22] (unknown) (no (unknown) (unknown) Non-healing wound (units (unknown) date) unknown) (unknown) (no (unknown) (unknown) Not currently (units ( unknown) date) unknown) (unknown) (no (unknown) (unknown) Orders (units (unkno wn) date) unknown) (unknown) (no (unknown) (unknown) Orders: (units (unkno wn) date) unknown) (unknown) (no (unknown) (unknown) PFSH (units (unkno wn) date) unknown) (unknown) (no (unknown) (unknown) Painful menstrual (units (unknown) date) periods unknown) (unknown) (no (unknown) (unknown) Patient: (units (unkno wn) date) Kirsten Deng [place] MR#: unknown) [id number] (unknown) (no (unknown) (unknown) Piriformis syndrome (unit s (unknown) date) of both sides unknown) (unknown) (no (unknown) (unknown) ROS (units (unkno wn) date) unknown) (unknown) (no (unknown) (unknown) Reason For Visit (units (unknown) date) unknown) (unknown) (no (unknown) (unknown) Reports as per HPI (units (unknown) date) unknown) (unknown) (no (unknown) (unknown) Right shoulder pain (unit s (unknown) date) unknown) (unknown) (no (unknown) (unknown) Sciatic leg pain (units (unknown) date) unknown) (unknown) (no (unknown) (unknown) Scoliosis (-1989) (units (unknown) date) unknown) (unknown) (no (unknown) (unknown) Signed By: (units (unk nown) date) unknown) (unknown) (no (unknown) (unknown) Skin changes of (units (unknown) date) breasts unknown) (unknown) (no (unknown) (unknown) Smoking Status: (units (unknown) date) Current some day unknown) smoker (unknown) (no (unknown) (unknown) Social History (units (unknown) date) unknown) (unknown) (no (unknown) (unknown) Surgical History (units (unknown) date) (Reviewed 08/01/22 @ unknown) 09:14 by IKER Ying) (unknown) (no (unknown) (unknown) Take 1 or 2 tabs (units (unknown) date) every 4-6 hours as unknown) needed for headache 2 tabs PO Q4-6H PRN (unknown) (no (unknown) (unknown) This note may have (units (unknown) date) been all or unknown) partially generated using voice recognition (unknown) (no (unknown) (unknown) Thyroid disease (units (unknown) date) unknown) (unknown) (no (unknown) (unknown) To (units (unkno wn) date) butalbital-acetamino unknown) phen-caff 50-325-40 mg (unknown) (no (unknown) (unknown) Tobacco + Substance (unit s (unknown) date) Use unknown) (unknown) (no (unknown) (unknown) Tobacco Status (units (unknown) date) unknown) (unknown) (no (unknown) (unknown) UTI (urinary tract (units (unknown) date) infection) unknown) (unknown) (no (unknown) (unknown) Vaginal delivery (units (unknown) date) unknown) (unknown) (no (unknown) (unknown) Visit Reasons: (units (unknown) date) V-see follow up unknown) depression, anxiety, headaches 02 (unknown) (no (unknown) (unknown) [Rx Confirmed (units ( unknown) date) 08/01/22] unknown) (unknown) (no (unknown) (unknown) acetaminophen 325 (units (unknown) date) mg capsule (Tylenol) unknown) 650 mg PO QID PRN pain #60 caps 02/28/22 (unknown) (no (unknown) (unknown) alcohol intake: (units (unknown) date) never unknown) (unknown) (no (unknown) (unknown) amoxicillin Adverse (unit s (unknown) date) Reaction (Verified unknown) 04/10/22 10:58) (unknown) (no (unknown) (unknown) bedtime or 24 mg (6 (unit s (unknown) date) tablets) as a single unknown) dose or divided into 2 or 3 doses upon (unknown) (no (unknown) (unknown) bedtime. (units (unkno wn) date) unknown) (unknown) (no (unknown) (unknown) butalbital-acetamin (unit s (unknown) date) ophen-caffeine 50 unknown) mg-325 mg-40 mg tablet 2 tab PO Q4-6H PRN (unknown) (no (unknown) (unknown) depression/anxiety. (unit s (unknown) date) unknown) (unknown) (no (unknown) (unknown) dextroamphetamine-a (unit s (unknown) date) mphetamine ER 30 mg unknown) 24hr capsule,extend release 30 mg PO QAM (unknown) (no (unknown) (unknown) diclofenac sodium (units (unknown) date) 75 mg tablet,delayed unknown) release 75 mg PO BID PRN pain #60 tabs (unknown) (no (unknown) (unknown) duloxetine 60 mg (units (unknown) date) capsule,delayed unknown) release 60 mg PO DAILY #90 caps 07/17/22 [Rx (unknown) (no (unknown) (unknown) gabapentin 300 mg (units (unknown) date) capsule 300 mg PO unknown) TID #450 caps 01/25/22 [Rx Confirmed (unknown) (no (unknown) (unknown) have occurred. If (units (unknown) date) there are any unknown) questions, please contact the Medical Records (unknown) (no (unknown) (unknown) household members: (units (unknown) date) significant other unknown) and children (unknown) (no (unknown) (unknown) initiation (units (unk nown) date) (regardless of time unknown) of day). (unknown) (no (unknown) (unknown) malignant neoplasm (units (unknown) date) of breast unknown) (unknown) (no (unknown) (unknown) marital status: (units (unknown) date) unmarried,living unknown) together (unknown) (no (unknown) (unknown) may occur. (units (unk nown) date) Occasional unknown) wrong-word or 'sound-alike' substitutions may have (unknown) (no (unknown) (unknown) methylprednisolone (units (unknown) date) unknown) (unknown) (no (unknown) (unknown) mg (1 tablet) at (units (unknown) date) bedtime. unknown) (unknown) (no (unknown) (unknown) occupational (units (u nknown) date) status: employed unknown) (unknown) (no (unknown) (unknown) occurred due to the (unit s (unknown) date) inherent limitations unknown) of voice recognition software. Please (unknown) (no (unknown) (unknown) pain #60 tabs (units ( unknown) date) 08/01/22 [Rx unknown) Confirmed 08/01/22] (unknown) (no (unknown) (unknown) pain G89.29 - Other (unit s (unknown) date) chronic pain, R51 - unknown) Headache, R51.9 - Headache, unspecified (unknown) (no (unknown) (unknown) read the note (units ( unknown) date) carefully and unknown) recognize, using context, where these substitutions (unknown) (no (unknown) (unknown) relieving symptoms (units (unknown) date) or making it 'more unknown) bearable.' (unknown) (no (unknown) (unknown) software. Although (units (unknown) date) every effort is made unknown) to edit content, cathode builder errors (unknown) (no (unknown) (unknown) substance use type: (unit s (unknown) date) does not use unknown) (unknown) (no (unknown) (unknown) that the fioricet (units (unknown) date) has been helpful at unknown) relieving headaches, either completely (unknown) (no (unknown) (unknown) unspecified (units (un known) date) unknown) Result panel 96 (unknown) (no (unknown) (unknown) (no value) (units (unk nown) date) unknown) (unknown) (no (unknown) (unknown) #30 caps 08/01/22 (units (unknown) date) [Rx Confirmed unknown) 08/01/22] (unknown) (no (unknown) (unknown) (1 tablet) after (units (unknown) date) lunch, 4 mg (1 unknown) tablet) after supper, and 4 mg (1 tablet) at (unknown) (no (unknown) (unknown) (1 tablet) after (units (unknown) date) lunch, 4 mg (1 unknown) tablet) after supper, and 8 mg (2 tablets) at (unknown) (no (unknown) (unknown) (1 tablet) after (units (unknown) date) lunch, and 4 mg (1 unknown) tablet) at bedtime. (unknown) (no (unknown) (unknown) 08/01/22 (units (unkno wn) date) unknown) (unknown) (no (unknown) (unknown) 08/01/22] (units (unkn own) date) unknown) (unknown) (no (unknown) (unknown) 05/29/22 [Rx (units (u nknown) date) Confirmed 08/01/22] unknown) (unknown) (no (unknown) (unknown) [id number] (units (unkno wn) date) unknown) (unknown) (no (unknown) (unknown) 41F presents via (units (unknown) date) v-see to follow up unknown) about her headaches and anxiety, reports (unknown) (no (unknown) (unknown) 41F presents via (units (unknown) date) v-see to follow up unknown) today about her headaches, ADHD, and (unknown) (no (unknown) (unknown) 60 tabs 3RF pain (units (unknown) date) G89.29 - Other unknown) chronic pain, R51 - Headache, R51.9 - Headache, (unknown) (no (unknown) (unknown) ADHD (-1982) (units (u nknown) date) unknown) (unknown) (no (unknown) (unknown) Abnormal Pap smear (units (unknown) date) of cervix () unknown) (unknown) (no (unknown) (unknown) Age/Sex: 41 / F (units (unknown) date) Date of Service: unknown) (unknown) (no (unknown) (unknown) Allergies () (units (unknown) date) unknown) (unknown) (no (unknown) (unknown) Allergies (units (unkn own) date) unknown) (unknown) (no (unknown) (unknown) [place] [address] (unit s (unknown) date) unknown) (unknown) (no (unknown) (unknown) Anesthesia (units (unk nown) date) unknown) (unknown) (no (unknown) (unknown) Anxiety () (units (unknown) date) unknown) (unknown) (no (unknown) (unknown) Assessment + Plan (units (unknown) date) unknown) (unknown) (no (unknown) (unknown) Attending Dr: (units ( unknown) date) Mari DONG unknown) (unknown) (no (unknown) (unknown) Back pain at L4-L5 (units (unknown) date) level () unknown) (unknown) (no (unknown) (unknown) Biliary colic (units ( unknown) date) unknown) (unknown) (no (unknown) (unknown) Changed (units (unkno wn) date) unknown) (unknown) (no (unknown) (unknown) Chicken pox () (unit s (unknown) date) unknown) (unknown) (no (unknown) (unknown) Chief Complaint (units (unknown) date) unknown) (unknown) (no (unknown) (unknown) Chief Complaint: (units (unknown) date) f/up headaches, unknown) depression and anxiety (unknown) (no (unknown) (unknown) Chronic hip pain, (units (unknown) date) bilateral unknown) (unknown) (no (unknown) (unknown) Chronic right hip (units (unknown) date) pain unknown) (unknown) (no (unknown) (unknown) Colon polyps (units (u nknown) date) () unknown) (unknown) (no (unknown) (unknown) Confirmed 08/01/22] (unit s (unknown) date) unknown) (unknown) (no (unknown) (unknown) Const (units (unkno wn) date) unknown) (unknown) (no (unknown) (unknown) : 1980 (units (unknown) date) Acct:[id number] unknown) (unknown) (no (unknown) (unknown) Day 1: 24 mg on day (unit s (unknown) date) 1 administered as 8 unknown) mg (2 tablets) before breakfast, 4 mg (unknown) (no (unknown) (unknown) Day 2: 20 mg on day (unit s (unknown) date) 2 administered as 4 unknown) mg (1 tablet) before breakfast, 4 mg (unknown) (no (unknown) (unknown) Day 3: 16 mg on day (unit s (unknown) date) 3 administered as 4 unknown) mg (1 tablet) before breakfast, 4 mg (unknown) (no (unknown) (unknown) Day 4: 12 mg on day (unit s (unknown) date) 4 administered as 4 unknown) mg (1 tablet) before breakfast, 4 mg (unknown) (no (unknown) (unknown) Day 5: 8 mg on day (units (unknown) date) 5 administered as 4 unknown) mg (1 tablet) before breakfast and 4 (unknown) (no (unknown) (unknown) Day 6: 4 mg on day (units (unknown) date) 6 administered as 4 unknown) mg (1 tablet) before breakfast. (unknown) (no (unknown) (unknown) Depression (-2002) (units (unknown) date) unknown) (unknown) (no (unknown) (unknown) Dept at (units (unkno wn) date) . unknown) (unknown) (no (unknown) (unknown) Details: (units (unkno wn) date) unknown) (unknown) (no (unknown) (unknown) Diabetes mellitus (units (unknown) date) unknown) (unknown) (no (unknown) (unknown) Diarrhea (units (unkno wn) date) unknown) (unknown) (no (unknown) (unknown) Discontinued (units (u nknown) date) Reason: Patient no unknown) longer taking 4 mg PO DAILY 21 ea 0RF (unknown) (no (unknown) (unknown) Discontinued (units (u nknown) date) unknown) (unknown) (no (unknown) (unknown) Documented By: (units (unknown) date) Mari Skinner unknown) 08/01/22 0903 (unknown) (no (unknown) (unknown) Draft (units (unkno wn) date) unknown) (unknown) (no (unknown) (unknown) Effexor Adverse (units (unknown) date) Reaction (Mild, unknown) Uncoded 04/10/22 12:15) (unknown) (no (unknown) (unknown) Exam Narrative (units (unknown) date) unknown) (unknown) (no (unknown) (unknown) Exam Narrative: (units (unknown) date) unknown) (unknown) (no (unknown) (unknown) Exam (units (unkno wn) date) unknown) (unknown) (no (unknown) (unknown) Fall (units (unkno wn) date) unknown) (unknown) (no (unknown) (unknown) Family History (units (unknown) date) (Reviewed 08/01/22 @ unknown) 09:14 by IKER Ying) (unknown) (no (unknown) (unknown) Family Practice (units (unknown) date) Office Visit unknown) (unknown) (no (unknown) (unknown) Father (units (unknown) date) Cancer unknown) (unknown) (no (unknown) (unknown) Fibroids (-2018) (units (unknown) date) unknown) (unknown) (no (unknown) (unknown) Fibromyalgia (units (u nknown) date) unknown) (unknown) (no (unknown) (unknown) [facility] unknown) (unknown) (no (unknown) (unknown) Forgetfulness (units ( unknown) date) unknown) (unknown) (no (unknown) (unknown) From (units (unkno wn) date) butalbital-acetamino unknown) phen-caff 50-325-40 mg 1 tab PO Q4-6H PRN 30 tabs 1RF (unknown) (no (unknown) (unknown) Grandfather Lung (units (unknown) date) cancer unknown) (unknown) (no (unknown) (unknown) Grandmother (units (un known) date) Cancer unknown) (unknown) (no (unknown) (unknown) HPI (units (unkno wn) date) unknown) (unknown) (no (unknown) (unknown) Heavy menstrual (units (unknown) date) period unknown) (unknown) (no (unknown) (unknown) History of bipolar (units (unknown) date) disorder unknown) (unknown) (no (unknown) (unknown) History of heart (units (unknown) date) disease unknown) (unknown) (no (unknown) (unknown) History of (units (unk nown) date) placement of ear unknown) tubes (-02/08/86) (unknown) (no (unknown) (unknown) History of (units (unk nown) date) recurrent ear unknown) infection (unknown) (no (unknown) (unknown) Hypertension (units (u nknown) date) unknown) (unknown) (no (unknown) (unknown) Intake (units (unkno wn) date) unknown) (unknown) (no (unknown) (unknown) Left shoulder pain (units (unknown) date) unknown) (unknown) (no (unknown) (unknown) Liver cancer (units (u nknown) date) unknown) (unknown) (no (unknown) (unknown) Loc: [facility] (units (unkno wn) date) unknown) (unknown) (no (unknown) (unknown) MM screening mammo (units (unknown) date) BI 1 Week Z12.31 - unknown) Encounter for screening mammogram for (unknown) (no (unknown) (unknown) Medical History (units (unknown) date) (Reviewed 08/01/22 @ unknown) 09:14 by IKER Ying) (unknown) (no (unknown) (unknown) Medications (units (un known) date) unknown) (unknown) (no (unknown) (unknown) Medications: (units (u nknown) date) unknown) (unknown) (no (unknown) (unknown) Mental health (units ( unknown) date) problem unknown) (unknown) (no (unknown) (unknown) Migraines (-1993) (units (unknown) date) unknown) (unknown) (no (unknown) (unknown) Mother (units (unknown) date) Hyperlipidemia unknown) (unknown) (no (unknown) (unknown) Multi Vitamin (units ( unknown) date) 11/04/17 [History unknown) Confirmed 08/01/22] (unknown) (no (unknown) (unknown) Non-healing wound (units (unknown) date) unknown) (unknown) (no (unknown) (unknown) Not currently (units ( unknown) date) unknown) (unknown) (no (unknown) (unknown) Orders (units (unkno wn) date) unknown) (unknown) (no (unknown) (unknown) Orders: (units (unkno wn) date) unknown) (unknown) (no (unknown) (unknown) PFSH (units (unkno wn) date) unknown) (unknown) (no (unknown) (unknown) PO .COMPLEX PRN (units (unknown) date) pain #60 tabs unknown) 08/01/22 [Rx] (unknown) (no (unknown) (unknown) Painful menstrual (units (unknown) date) periods unknown) (unknown) (no (unknown) (unknown) Patient: (units (unkno wn) date) Kirsten Deng MR#: unknown) M000 (unknown) (no (unknown) (unknown) Piriformis syndrome (unit s (unknown) date) of both sides unknown) (unknown) (no (unknown) (unknown) ROS (units (unkno wn) date) unknown) (unknown) (no (unknown) (unknown) Reason For Visit (units (unknown) date) unknown) (unknown) (no (unknown) (unknown) Reports as per HPI (units (unknown) date) unknown) (unknown) (no (unknown) (unknown) Right shoulder pain (unit s (unknown) date) unknown) (unknown) (no (unknown) (unknown) Sciatic leg pain (units (unknown) date) unknown) (unknown) (no (unknown) (unknown) Scoliosis () (units (unknown) date) unknown) (unknown) (no (unknown) (unknown) Signed By: (units (unk nown) date) unknown) (unknown) (no (unknown) (unknown) Skin changes of (units (unknown) date) breasts unknown) (unknown) (no (unknown) (unknown) Smoking Status: (units (unknown) date) Current some day unknown) smoker (unknown) (no (unknown) (unknown) Social History (units (unknown) date) unknown) (unknown) (no (unknown) (unknown) Surgical History (units (unknown) date) (Reviewed 08/01/22 @ unknown) 09:14 by IKER Ying) (unknown) (no (unknown) (unknown) Take 1 or 2 tabs (units (unknown) date) every 4-6 hours as unknown) needed for headache 2 tabs PO Q4-6H PRN (unknown) (no (unknown) (unknown) This note may have (units (unknown) date) been all or unknown) partially generated using voice recognition (unknown) (no (unknown) (unknown) Thyroid disease (units (unknown) date) unknown) (unknown) (no (unknown) (unknown) To (units (unkno wn) date) butalbital-acetamino unknown) phen-caff 50-325-40 mg (unknown) (no (unknown) (unknown) Tobacco + Substance (unit s (unknown) date) Use unknown) (unknown) (no (unknown) (unknown) Tobacco Status (units (unknown) date) unknown) (unknown) (no (unknown) (unknown) UTI (urinary tract (units (unknown) date) infection) unknown) (unknown) (no (unknown) (unknown) Vaginal delivery (units (unknown) date) unknown) (unknown) (no (unknown) (unknown) Visit Reasons: (units (unknown) date) V-see follow up unknown) depression, anxiety, headaches 02 (unknown) (no (unknown) (unknown) [Rx Confirmed (units ( unknown) date) 08/01/22] unknown) (unknown) (no (unknown) (unknown) acetaminophen 325 (units (unknown) date) mg capsule (Tylenol) unknown) 650 mg PO QID PRN pain #60 caps 02/28/22 (unknown) (no (unknown) (unknown) alcohol intake: (units (unknown) date) never unknown) (unknown) (no (unknown) (unknown) amoxicillin Adverse (unit s (unknown) date) Reaction (Verified unknown) 04/10/22 10:58) (unknown) (no (unknown) (unknown) bedtime or 24 mg (6 (unit s (unknown) date) tablets) as a single unknown) dose or divided into 2 or 3 doses upon (unknown) (no (unknown) (unknown) bedtime. (units (unkno wn) date) unknown) (unknown) (no (unknown) (unknown) butalbital-acetamin (unit s (unknown) date) ophen-caffeine 50 unknown) mg-325 mg-40 mg tablet See Rx Instructions (unknown) (no (unknown) (unknown) depression/anxiety. (unit s (unknown) date) unknown) (unknown) (no (unknown) (unknown) dextroamphetamine-a (unit s (unknown) date) mphetamine ER 30 mg unknown) 24hr capsule,extend release 30 mg PO QAM (unknown) (no (unknown) (unknown) diclofenac sodium (units (unknown) date) 75 mg tablet,delayed unknown) release 75 mg PO BID PRN pain #60 tabs (unknown) (no (unknown) (unknown) duloxetine 60 mg (units (unknown) date) capsule,delayed unknown) release 60 mg PO DAILY #90 caps 07/17/22 [Rx (unknown) (no (unknown) (unknown) gabapentin 300 mg (units (unknown) date) capsule 300 mg PO unknown) TID #450 caps 01/25/22 [Rx Confirmed (unknown) (no (unknown) (unknown) have occurred. If (units (unknown) date) there are any unknown) questions, please contact the Medical Records (unknown) (no (unknown) (unknown) household members: (units (unknown) date) significant other unknown) and children (unknown) (no (unknown) (unknown) initiation (units (unk nown) date) (regardless of time unknown) of day). (unknown) (no (unknown) (unknown) malignant neoplasm (units (unknown) date) of breast unknown) (unknown) (no (unknown) (unknown) marital status: (units (unknown) date) unmarried,living unknown) together (unknown) (no (unknown) (unknown) may occur. (units (unk nown) date) Occasional unknown) wrong-word or 'sound-alike' substitutions may have (unknown) (no (unknown) (unknown) methylprednisolone (units (unknown) date) unknown) (unknown) (no (unknown) (unknown) mg (1 tablet) at (units (unknown) date) bedtime. unknown) (unknown) (no (unknown) (unknown) occupational (units (u nknown) date) status: employed unknown) (unknown) (no (unknown) (unknown) occurred due to the (unit s (unknown) date) inherent limitations unknown) of voice recognition software. Please (unknown) (no (unknown) (unknown) pain G89.29 - Other (unit s (unknown) date) chronic pain, R51 - unknown) Headache, R51.9 - Headache, unspecified (unknown) (no (unknown) (unknown) read the note (units ( unknown) date) carefully and unknown) recognize, using context, where these substitutions (unknown) (no (unknown) (unknown) relieving symptoms (units (unknown) date) or making it 'more unknown) bearable.' (unknown) (no (unknown) (unknown) software. Although (units (unknown) date) every effort is made unknown) to edit content, cathode builder errors (unknown) (no (unknown) (unknown) substance use type: (unit s (unknown) date) does not use unknown) (unknown) (no (unknown) (unknown) that the fioricet (units (unknown) date) has been helpful at unknown) relieving headaches, either completely (unknown) (no (unknown) (unknown) unspecified (units (un known) date) unknown) Result panel 97 (unknown) (no (unknown) (unknown) (no value) (units (unk nown) date) unknown) (unknown) (no (unknown) (unknown) #30 caps 08/01/22 (units (unknown) date) [Rx Confirmed unknown) 08/01/22] (unknown) (no (unknown) (unknown) (1 tablet) after (units (unknown) date) lunch, 4 mg (1 unknown) tablet) after supper, and 4 mg (1 tablet) at (unknown) (no (unknown) (unknown) (1 tablet) after (units (unknown) date) lunch, 4 mg (1 unknown) tablet) after supper, and 8 mg (2 tablets) at (unknown) (no (unknown) (unknown) (1 tablet) after (units (unknown) date) lunch, and 4 mg (1 unknown) tablet) at bedtime. (unknown) (no (unknown) (unknown) (1) Fibromyalgia: (units (unknown) date) unknown) (unknown) (no (unknown) (unknown) (2) Chronic right (units (unknown) date) hip pain: unknown) (unknown) (no (unknown) (unknown) (3) Depression: (units (unknown) date) unknown) (unknown) (no (unknown) (unknown) (4) Anxiety: (units (u nknown) date) unknown) (unknown) (no (unknown) (unknown) (5) Migraines: (units (unknown) date) unknown) (unknown) (no (unknown) (unknown) (6) ADHD: (units (unkn own) date) unknown) (unknown) (no (unknown) (unknown) (7) Headache: (units ( unknown) date) unknown) (unknown) (no (unknown) (unknown) 08/01/22 (units (unkno wn) date) unknown) (unknown) (no (unknown) (unknown) 08/01/22] (units (unkn own) date) unknown) (unknown) (no (unknown) (unknown) 08/02/22 0951 (units ( unknown) date) unknown) (unknown) (no (unknown) (unknown) 05/29/22 [Rx (units (u nknown) date) Confirmed 08/01/22] unknown) (unknown) (no (unknown) (unknown) [id number] (units (unkno wn) date) unknown) (unknown) (no (unknown) (unknown) 29 mins (units (unkno wn) date) unknown) (unknown) (no (unknown) (unknown) 41F presents via (units (unknown) date) v-see to follow up unknown) about her headaches and anxiety, reports (unknown) (no (unknown) (unknown) 41F presents via (units (unknown) date) v-see to follow up unknown) today about her headaches, ADHD, and (unknown) (no (unknown) (unknown) 60 tabs 3RF pain (units (unknown) date) G89.29 - Other unknown) chronic pain, R51 - Headache, R51.9 - Headache, (unknown) (no (unknown) (unknown) ADHD (-1982) (units (u nknown) date) unknown) (unknown) (no (unknown) (unknown) ADHD: Pt expresses (units (unknown) date) satisfaction with unknown) current regimen of ADHD medication. (unknown) (no (unknown) (unknown) Abnormal Pap smear (units (unknown) date) of cervix (-2017) unknown) (unknown) (no (unknown) (unknown) Add'l Plan Details (units (unknown) date) unknown) (unknown) (no (unknown) (unknown) Add'l Plan*: (units (u nknown) date) unknown) (unknown) (no (unknown) (unknown) Age/Sex: 41 / F (units (unknown) date) Date of Service: unknown) (unknown) (no (unknown) (unknown) All participants + (units (unknown) date) their role: unknown) (Providers,Parent,Sp ouse,etc): (unknown) (no (unknown) (unknown) Allergies () (units (unknown) date) unknown) (unknown) (no (unknown) (unknown) Allergies (units (unkn own) date) unknown) (unknown) (no (unknown) (unknown) EDIE Richey [id number] (unit s (unknown) date) unknown) (unknown) (no (unknown) (unknown) Anesthesia (units (unk nown) date) unknown) (unknown) (no (unknown) (unknown) Anxiety () (units (unknown) date) unknown) (unknown) (no (unknown) (unknown) Assessment + Plan (units (unknown) date) unknown) (unknown) (no (unknown) (unknown) Attending Dr: (units ( unknown) date) Mari DONG unknown) (unknown) (no (unknown) (unknown) Attention (units (unkn own) date) deficit-hyperactivit unknown) y disorder type: unspecified Qualified (unknown) (no (unknown) (unknown) Back pain at L4-L5 (units (unknown) date) level () unknown) (unknown) (no (unknown) (unknown) Biliary colic (units ( unknown) date) unknown) (unknown) (no (unknown) (unknown) Changed (units (unkno wn) date) unknown) (unknown) (no (unknown) (unknown) Chicken pox () (unit s (unknown) date) unknown) (unknown) (no (unknown) (unknown) Chief Complaint (units (unknown) date) unknown) (unknown) (no (unknown) (unknown) Chief Complaint: (units (unknown) date) f/up headaches, unknown) depression and anxiety (unknown) (no (unknown) (unknown) Chronic hip pain, (units (unknown) date) bilateral unknown) (unknown) (no (unknown) (unknown) Chronic pain: Well (units (unknown) date) managed with use of unknown) Gabapentin and diclofenac as prescribed. (unknown) (no (unknown) (unknown) Chronic right hip (units (unknown) date) pain unknown) (unknown) (no (unknown) (unknown) Code(s): F90.9 - (units (unknown) date) Attention-deficit unknown) hyperactivity disorder, unspecified type (unknown) (no (unknown) (unknown) Colon polyps (units (u nknown) date) () unknown) (unknown) (no (unknown) (unknown) Confirmed 08/01/22] (unit s (unknown) date) unknown) (unknown) (no (unknown) (unknown) Const (units (unkno wn) date) unknown) (unknown) (no (unknown) (unknown) Continue regimen as (unit s (unknown) date) prescribed. unknown) (unknown) (no (unknown) (unknown) : 1980 (units (unknown) date) Acct:[id number] unknown) (unknown) (no (unknown) (unknown) Day 1: 24 mg on day (unit s (unknown) date) 1 administered as 8 unknown) mg (2 tablets) before breakfast, 4 mg (unknown) (no (unknown) (unknown) Day 2: 20 mg on day (unit s (unknown) date) 2 administered as 4 unknown) mg (1 tablet) before breakfast, 4 mg (unknown) (no (unknown) (unknown) Day 3: 16 mg on day (unit s (unknown) date) 3 administered as 4 unknown) mg (1 tablet) before breakfast, 4 mg (unknown) (no (unknown) (unknown) Day 4: 12 mg on day (unit s (unknown) date) 4 administered as 4 unknown) mg (1 tablet) before breakfast, 4 mg (unknown) (no (unknown) (unknown) Day 5: 8 mg on day (units (unknown) date) 5 administered as 4 unknown) mg (1 tablet) before breakfast and 4 (unknown) (no (unknown) (unknown) Day 6: 4 mg on day (units (unknown) date) 6 administered as 4 unknown) mg (1 tablet) before breakfast. (unknown) (no (unknown) (unknown) Depression (-2002) (units (unknown) date) unknown) (unknown) (no (unknown) (unknown) Depression Type: (units (unknown) date) unspecified unknown) Qualified Code(s): F32.A - Depression, (unknown) (no (unknown) (unknown) Depression and (units (unknown) date) anxiety: Well unknown) managed with increased Duloxetine, per patient she (unknown) (no (unknown) (unknown) Dept at (units (unkno wn) date) . unknown) (unknown) (no (unknown) (unknown) Details: (units (unkno wn) date) unknown) (unknown) (no (unknown) (unknown) Diabetes mellitus (units (unknown) date) unknown) (unknown) (no (unknown) (unknown) Diarrhea (units (unkno wn) date) unknown) (unknown) (no (unknown) (unknown) Discontinued (units (u nknown) date) Reason: Patient no unknown) longer taking 4 mg PO DAILY 21 ea 0RF (unknown) (no (unknown) (unknown) Discontinued (units (u nknown) date) unknown) (unknown) (no (unknown) (unknown) Documented By: (units (unknown) date) Mari Skinner unknown) 08/01/22 0903 (unknown) (no (unknown) (unknown) Effexor Adverse (units (unknown) date) Reaction (Mild, unknown) Uncoded 04/10/22 12:15) (unknown) (no (unknown) (unknown) Exam Narrative (units (unknown) date) unknown) (unknown) (no (unknown) (unknown) Exam Narrative: (units (unknown) date) unknown) (unknown) (no (unknown) (unknown) Exam (units (unkno wn) date) unknown) (unknown) (no (unknown) (unknown) Fall (units (unkno wn) date) unknown) (unknown) (no (unknown) (unknown) Family History (units (unknown) date) (Reviewed 08/01/22 @ unknown) 09:14 by IKER Ying) (unknown) (no (unknown) (unknown) Family Practice (units (unknown) date) Office Visit unknown) (unknown) (no (unknown) (unknown) Father (units (unknown) date) Cancer unknown) (unknown) (no (unknown) (unknown) Fibroids (-2018) (units (unknown) date) unknown) (unknown) (no (unknown) (unknown) Fibromyalgia (units (u nknown) date) unknown) (unknown) (no (unknown) (unknown) [facility] ([facility] date[facility] unknown) (unknown) (no (unknown) (unknown) Fioricet and this (units (unknown) date) has worked well to unknown) relieve her pain most of the time, though (unknown) (no (unknown) (unknown) Forgetfulness (units ( unknown) date) unknown) (unknown) (no (unknown) (unknown) From (units (unkno wn) date) butalbital-acetamino unknown) phen-caff 50-325-40 mg 1 tab PO Q4-6H PRN 30 tabs 1RF (unknown) (no (unknown) (unknown) Grandfather Lung (units (unknown) date) cancer unknown) (unknown) (no (unknown) (unknown) Grandmother (units (un known) date) Cancer unknown) (unknown) (no (unknown) (unknown) HPI (units (unkno wn) date) unknown) (unknown) (no (unknown) (unknown) Headache type: (units (unknown) date) tension-type unknown) Headache chronicity pattern: chronic (unknown) (no (unknown) (unknown) Headache: Pt (units (u nknown) date) suffers from both unknown) tension and migraine headaches. We trialed (unknown) (no (unknown) (unknown) Heavy menstrual (units (unknown) date) period unknown) (unknown) (no (unknown) (unknown) History of bipolar (units (unknown) date) disorder unknown) (unknown) (no (unknown) (unknown) History of heart (units (unknown) date) disease unknown) (unknown) (no (unknown) (unknown) History of (units (unk nown) date) placement of ear unknown) tubes (-02/08/86) (unknown) (no (unknown) (unknown) History of (units (unk nown) date) recurrent ear unknown) infection (unknown) (no (unknown) (unknown) Hypertension (units (u nknown) date) unknown) (unknown) (no (unknown) (unknown) Intake (units (unkno wn) date) unknown) (unknown) (no (unknown) (unknown) Left shoulder pain (units (unknown) date) unknown) (unknown) (no (unknown) (unknown) Liver cancer (units (u nknown) date) unknown) (unknown) (no (unknown) (unknown) Loc: [facility] (units (unkno wn) date) unknown) (unknown) (no (unknown) (unknown) Location of (units (un known) date) patient:: home unknown) (unknown) (no (unknown) (unknown) Location of (units (un known) date) provider:: office unknown) (unknown) (no (unknown) (unknown) MM screening mammo (units (unknown) date) BI 1 Week Z12.31 - unknown) Encounter for screening mammogram for (unknown) (no (unknown) (unknown) Medical History (units (unknown) date) (Reviewed 08/01/22 @ unknown) 09:14 by IKER Ying) (unknown) (no (unknown) (unknown) Medications (units (un known) date) unknown) (unknown) (no (unknown) (unknown) Medications: (units (u nknown) date) unknown) (unknown) (no (unknown) (unknown) Mental health (units ( unknown) date) problem unknown) (unknown) (no (unknown) (unknown) Migraine type: (units (unknown) date) unspecified Status unknown) migrainosus presence: without status (unknown) (no (unknown) (unknown) Migraine, (units (unkn own) date) unspecified, not unknown) intractable, without status migrainosus (unknown) (no (unknown) (unknown) Migraines (-1993) (units (unknown) date) unknown) (unknown) (no (unknown) (unknown) Mother (units (unknown) date) Hyperlipidemia unknown) (unknown) (no (unknown) (unknown) Multi Vitamin (units ( unknown) date) 11/04/17 [History unknown) Confirmed 08/01/22] (unknown) (no (unknown) (unknown) Non-healing wound (units (unknown) date) unknown) (unknown) (no (unknown) (unknown) Not currently (units ( unknown) date) unknown) (unknown) (no (unknown) (unknown) Orders (units (unkno wn) date) unknown) (unknown) (no (unknown) (unknown) Orders: (units (unkno wn) date) unknown) (unknown) (no (unknown) (unknown) PFSH (units (unkno wn) date) unknown) (unknown) (no (unknown) (unknown) PO .COMPLEX PRN (units (unknown) date) pain #60 tabs unknown) 08/01/22 [Rx] (unknown) (no (unknown) (unknown) Painful menstrual (units (unknown) date) periods unknown) (unknown) (no (unknown) (unknown) Patient consented (units (unknown) date) to receive services unknown) via telehealth?: Yes (unknown) (no (unknown) (unknown) Patient: (units (unkno wn) date) Kirsten Deng MR#: unknown) M000 (unknown) (no (unknown) (unknown) Piriformis syndrome (unit s (unknown) date) of both sides unknown) (unknown) (no (unknown) (unknown) Qualifiers: (units (un known) date) unknown) (unknown) (no (unknown) (unknown) ROS (units (unkno wn) date) unknown) (unknown) (no (unknown) (unknown) RTC 6 mos or sooner (unit s (unknown) date) as needed. unknown) (unknown) (no (unknown) (unknown) Real-time,sychronou (unit s (unknown) date) s services were unknown) performed via:: v-see (unknown) (no (unknown) (unknown) Reason For Visit (units (unknown) date) unknown) (unknown) (no (unknown) (unknown) Refilled today. (units (unknown) date) Continue unknown) Dextroamphetamine-Am phetamine at current dose. (unknown) (no (unknown) (unknown) Reports as per HPI (units (unknown) date) unknown) (unknown) (no (unknown) (unknown) Right shoulder pain (unit s (unknown) date) unknown) (unknown) (no (unknown) (unknown) Sciatic leg pain (units (unknown) date) unknown) (unknown) (no (unknown) (unknown) Scoliosis (-1989) (units (unknown) date) unknown) (unknown) (no (unknown) (unknown) Signed By: (units (unk nown) date) <Electronically unknown) signed by Mari Skinner> (unknown) (no (unknown) (unknown) Signed (units (unkno wn) date) unknown) (unknown) (no (unknown) (unknown) Skin changes of (units (unknown) date) breasts unknown) (unknown) (no (unknown) (unknown) Smoking Status: (units (unknown) date) Current some day unknown) smoker (unknown) (no (unknown) (unknown) Social History (units (unknown) date) unknown) (unknown) (no (unknown) (unknown) Status: Acute (units ( unknown) date) unknown) (unknown) (no (unknown) (unknown) Status: Chronic (units (unknown) date) unknown) (unknown) (no (unknown) (unknown) Surgical History (units (unknown) date) (Reviewed 08/01/22 @ unknown) 09:14 by IKER Ying) (unknown) (no (unknown) (unknown) Take 1 or 2 tabs (units (unknown) date) every 4-6 hours as unknown) needed for headache 2 tabs PO Q4-6H PRN (unknown) (no (unknown) (unknown) TeleHealth (units (unk nown) date) unknown) (unknown) (no (unknown) (unknown) This note may have (units (unknown) date) been all or unknown) partially generated using voice recognition (unknown) (no (unknown) (unknown) Thyroid disease (units (unknown) date) unknown) (unknown) (no (unknown) (unknown) Time Coding Minutes (unit s (unknown) date) Spent: (must be on unknown) same date of service/appointment) (unknown) (no (unknown) (unknown) Time Spent (units (unk nown) date) unknown) (unknown) (no (unknown) (unknown) To (units (unkno wn) date) butalbital-acetamino unknown) phen-caff 50-325-40 mg (unknown) (no (unknown) (unknown) Tobacco + Substance (unit s (unknown) date) Use unknown) (unknown) (no (unknown) (unknown) Tobacco Status (units (unknown) date) unknown) (unknown) (no (unknown) (unknown) UTI (urinary tract (units (unknown) date) infection) unknown) (unknown) (no (unknown) (unknown) Vaginal delivery (units (unknown) date) unknown) (unknown) (no (unknown) (unknown) Visit Reasons: (units (unknown) date) V-see follow up unknown) depression, anxiety, headaches 02 (unknown) (no (unknown) (unknown) Were services (units ( unknown) date) performed via unknown) telephone only?: No (unknown) (no (unknown) (unknown) [Rx Confirmed (units ( unknown) date) 08/01/22] unknown) (unknown) (no (unknown) (unknown) acetaminophen 325 (units (unknown) date) mg capsule (Tylenol) unknown) 650 mg PO QID PRN pain #60 caps 02/28/22 (unknown) (no (unknown) (unknown) alcohol intake: (units (unknown) date) never unknown) (unknown) (no (unknown) (unknown) amoxicillin Adverse (unit s (unknown) date) Reaction (Verified unknown) 04/10/22 10:58) (unknown) (no (unknown) (unknown) antidepressant are (units (unknown) date) working well for unknown) her. Feels her chronic pain from fibro is (unknown) (no (unknown) (unknown) bedtime or 24 mg (6 (unit s (unknown) date) tablets) as a single unknown) dose or divided into 2 or 3 doses upon (unknown) (no (unknown) (unknown) bedtime. (units (unkno wn) date) unknown) (unknown) (no (unknown) (unknown) butalbital-acetamin (unit s (unknown) date) ophen-caffeine 50 unknown) mg-325 mg-40 mg tablet See Rx Instructions (unknown) (no (unknown) (unknown) depression/anxiety. (unit s (unknown) date) unknown) (unknown) (no (unknown) (unknown) dextroamphetamine-a (unit s (unknown) date) mphetamine ER 30 mg unknown) 24hr capsule,extend release 30 mg PO QAM (unknown) (no (unknown) (unknown) diclofenac sodium (units (unknown) date) 75 mg tablet,delayed unknown) release 75 mg PO BID PRN pain #60 tabs (unknown) (no (unknown) (unknown) duloxetine 60 mg (units (unknown) date) capsule,delayed unknown) release 60 mg PO DAILY #90 caps 07/17/22 [Rx (unknown) (no (unknown) (unknown) gabapentin 300 mg (units (unknown) date) capsule 300 mg PO unknown) TID #450 caps 01/25/22 [Rx Confirmed (unknown) (no (unknown) (unknown) have occurred. If (units (unknown) date) there are any unknown) questions, please contact the Medical Records (unknown) (no (unknown) (unknown) headache (units (unkno wn) date) Intractability: not unknown) intractable Qualified Code(s): G44.229 - Chronic (unknown) (no (unknown) (unknown) household members: (units (unknown) date) significant other unknown) and children (unknown) (no (unknown) (unknown) initiation (units (unk nown) date) (regardless of time unknown) of day). (unknown) (no (unknown) (unknown) is satisfied with (units (unknown) date) therapy. Continue unknown) Duloxetine 60mg/day. She will reach out if (unknown) (no (unknown) (unknown) malignant neoplasm (units (unknown) date) of breast unknown) (unknown) (no (unknown) (unknown) marital status: (units (unknown) date) unmarried,living unknown) together (unknown) (no (unknown) (unknown) may occur. (units (unk nown) date) Occasional unknown) wrong-word or 'sound-alike' substitutions may have (unknown) (no (unknown) (unknown) methylprednisolone (units (unknown) date) unknown) (unknown) (no (unknown) (unknown) mg (1 tablet) at (units (unknown) date) bedtime. unknown) (unknown) (no (unknown) (unknown) migrainosus (units (un known) date) Intractability: not unknown) intractable Qualified Code(s): G43.909 (unknown) (no (unknown) (unknown) occupational (units (u nknown) date) status: employed unknown) (unknown) (no (unknown) (unknown) occurred due to the (unit s (unknown) date) inherent limitations unknown) of voice recognition software. Please (unknown) (no (unknown) (unknown) pain G89.29 - Other (unit s (unknown) date) chronic pain, R51 - unknown) Headache, R51.9 - Headache, unspecified (unknown) (no (unknown) (unknown) patient and (units (un known) date) provider unknown) (unknown) (no (unknown) (unknown) prevent her (units (un known) date) migraines. unknown) (unknown) (no (unknown) (unknown) read the note (units ( unknown) date) carefully and unknown) recognize, using context, where these substitutions (unknown) (no (unknown) (unknown) recommendation. She (unit s (unknown) date) will call if this is unknown) ineffective at relieving the pain. (unknown) (no (unknown) (unknown) relieving symptoms (units (unknown) date) or making it 'more unknown) bearable.' Feels like her ADHD meds and (unknown) (no (unknown) (unknown) she feels the (units ( unknown) date) medication is losing unknown) it's efficacy. This medication may also help (unknown) (no (unknown) (unknown) she has experienced (unit s (unknown) date) persistent pain that unknown) was bothersome that was not relieved (unknown) (no (unknown) (unknown) software. Although (units (unknown) date) every effort is made unknown) to edit content, cathode builder errors (unknown) (no (unknown) (unknown) substance use type: (unit s (unknown) date) does not use unknown) (unknown) (no (unknown) (unknown) tension-type (units (u nknown) date) headache, not unknown) intractable (unknown) (no (unknown) (unknown) that the fioricet (units (unknown) date) has been helpful at unknown) relieving headaches, either completely (unknown) (no (unknown) (unknown) unspecified (units (un known) date) unknown) (unknown) (no (unknown) (unknown) well managed (units (u nknown) date) currently. unknown) (unknown) (no (unknown) (unknown) with the (units (unkno wn) date) medication. unknown) Increased dose to 1-2 tabs as needed. Pt in favor of Result panel 98 (unknown) (no date) (unknown) (unknown) 2.2 ug/ml 9738- 6 (unknown) (no date) (unknown) (unknown) 2.2 ug/ml (unkn own) Result panel 99 (unknown) (no date) (unknown) (unknown) Negative (units (unkn own) unknown) Result panel 100 (unknown) (no date) (unknown) (unknown) 1.3 % (unkn own) (unknown) (no date) (unknown) (unknown) 100 /ul (unkn own) (unknown) (no date) (unknown) (unknown) 13.2 g/dl (unkn own) (unknown) (no date) (unknown) (unknown) 15.8 % (unkn own) (unknown) (no date) (unknown) (unknown) 2.9 % (unkn own) (unknown) (no date) (unknown) (unknown) 200 /ul (unkn own) (unknown) (no date) (unknown) (unknown) 250 x10 3/ul (unkn own) (unknown) (no date) (unknown) (unknown) 27.6 pg (unkn own) (unknown) (no date) (unknown) (unknown) 2800 /ul (unkn own) (unknown) (no date) (unknown) (unknown) 33.7 % (unkn own) (unknown) (no date) (unknown) (unknown) 34.5 % (unkn own) (unknown) (no date) (unknown) (unknown) 39.1 % (unkn own) (unknown) (no date) (unknown) (unknown) 4.76 x10 6/ul (unkn own) (unknown) (no date) (unknown) (unknown) 4500 /ul (unkn own) (unknown) (no date) (unknown) (unknown) 500 /ul (unkn own) (unknown) (no date) (unknown) (unknown) 55.3 % (unkn own) (unknown) (no date) (unknown) (unknown) 6.0 % (unkn own) (unknown) (no date) (unknown) (unknown) 8.1 x10 3/ul (unkn own) (unknown) (no date) (unknown) (unknown) 82.1 fl (unkn own) Result panel 101 (unknown) (no date) (unknown) (unknown) Negative (units (unkn own) unknown) (unknown) (no date) (unknown) (unknown) Negative (units (unkn own) unknown) Result panel 102 (unknown) (no date) (unknown) (unknown) > 60 ml/min (unkn own) (unknown) (no date) (unknown) (unknown) > 60 ml/min (unkn own) (unknown) (no date) (unknown) (unknown) < 1.0 mg/dl (unkn own) (unknown) (no date) (unknown) (unknown) < 1.0 mg/dl (unkn own) (unknown) (no date) (unknown) (unknown) < 10 mg/dl (unkn own) (unknown) (no date) (unknown) (unknown) < 10 mg/dl (unkn own) (unknown) (no date) (unknown) (unknown) < 10 ug/ml (unkn own) (unknown) (no date) (unknown) (unknown) < 10 ug/ml (unkn own) (unknown) (no date) (unknown) (unknown) 0.4 mg/dl (unkn own) (unknown) (no date) (unknown) (unknown) 0.56 mg/dl (unkn own) (unknown) (no date) (unknown) (unknown) 1.2 (units unknown) (unknown) (unknown) (no date) (unknown) (unknown) 109 mmol/l (unkn own) (unknown) (no date) (unknown) (unknown) 141 mmol/l (unkn own) (unknown) (no date) (unknown) (unknown) 16.1 (units unknown) (unknown) (unknown) (no date) (unknown) (unknown) 22 iu/l (unkn own) (unknown) (no date) (unknown) (unknown) 23 iu/l (unkn own) (unknown) (no date) (unknown) (unknown) 24 mmol/l (unkn own) (unknown) (no date) (unknown) (unknown) 3.4 mmol/l (unkn own) (unknown) (no date) (unknown) (unknown) 3.5 g/dl (unkn own) (unknown) (no date) (unknown) (unknown) 4.3 g/dl (unkn own) (unknown) (no date) (unknown) (unknown) 7.8 g/dl (unkn own) (unknown) (no date) (unknown) (unknown) 8.8 mg/dl (unkn own) (unknown) (no date) (unknown) (unknown) 89 u/l (unkn own) (unknown) (no date) (unknown) (unknown) 9 mg/dl (unkn own) (unknown) (no date) (unknown) (unknown) 94 mg/dl (unkn own) (unknown) (no date) (unknown) (unknown) 94 mg/dl (unkn own) Result panel 103 (unknown) (no date) (unknown) (unknown) 0.2 e.u./dl (unkn own) (unknown) (no date) (unknown) (unknown) 1.010 (units (unkn own) unknown) (unknown) (no date) (unknown) (unknown) 7.0 (units (unkn own) unknown) (unknown) (no date) (unknown) (unknown) CLEAR (units (unkn own) unknown) (unknown) (no date) (unknown) (unknown) NEGATIVE (units (unkn own) unknown) (unknown) (no date) (unknown) (unknown) NEGATIVE g/dl (unkn own) (unknown) (no date) (unknown) (unknown) TRACE-INTACT (units ( unknown) unknown) (unknown) (no date) (unknown) (unknown) YELLOW (units (unkn own) unknown) (unknown) (no date) (unknown) (unknown) YELLOW (units (unkn own) unknown) Result panel 104 (unknown) (no date) (unknown) (unknown) 0.2 e.u./dl (unkn own) (unknown) (no date) (unknown) (unknown) 1-5/HPF (units (unkn own) unknown) (unknown) (no date) (unknown) (unknown) 1.010 (units (unkn own) unknown) (unknown) (no date) (unknown) (unknown) 2 (units (unkn own) unknown) (unknown) (no date) (unknown) (unknown) 7.0 (units (unkn own) unknown) (unknown) (no date) (unknown) (unknown) CLEAR (units (unkn own) unknown) (unknown) (no date) (unknown) (unknown) NEGATIVE (units (unkn own) unknown) (unknown) (no date) (unknown) (unknown) NEGATIVE g/dl (unkn own) (unknown) (no date) (unknown) (unknown) None Seen (units (unk nown) unknown) (unknown) (no date) (unknown) (unknown) Occasional (units (un known) (0-1) unknown) (unknown) (no date) (unknown) (unknown) Specimen (units (unkn own) Cultured unknown) (unknown) (no date) (unknown) (unknown) TRACE-INTACT (units ( unknown) unknown) (unknown) (no date) (unknown) (unknown) YELLOW (units (unkn own) unknown) (unknown) (no date) (unknown) (unknown) YELLOW (units (unkn own) unknown) Result panel 105 (unknown) (no date) (unknown) (unknown) 1.32 ng/dl (unkn own) Result panel 106 (unknown) (no date) (unknown) (unknown) Negative (units (unkn own) unknown) (unknown) (no date) (unknown) (unknown) Normal (units (unkn own) unknown) (unknown) (no date) (unknown) (unknown) Positive (units (unkn own) unknown) Result panel 107 (unknown) (no (unknown) (unknown) (no value) (units (unk nown) date) unknown) (unknown) (no (unknown) (unknown) (Tylenol) (units (unkn own) date) unknown) (unknown) (no (unknown) (unknown) 08/10/22 08/10/22 (units (unknown) date) 08/10/22 unknown) Range/Units (unknown) (no (unknown) (unknown) 08/10/22 15:20 (units (unknown) date) unknown) (unknown) (no (unknown) (unknown) 08/10/22 15:30 (units (unknown) date) unknown) (unknown) (no (unknown) (unknown) 08/10/22 (units (unkno wn) date) Range/Units unknown) (unknown) (no (unknown) (unknown) 08/10/22 (units (unkno wn) date) unknown) (unknown) (no (unknown) (unknown) [id number] (units (unkno wn) date) unknown) (unknown) (no (unknown) (unknown) 15:12 (units (unkno wn) date) unknown) (unknown) (no (unknown) (unknown) 15:30 15:30 15:30 (units (unknown) date) unknown) (unknown) (no (unknown) (unknown) 15:30 (units (unkno wn) date) unknown) (unknown) (no (unknown) (unknown) 30 mg 24hr (units (unk nown) date) capsule,extend unknown) release (unknown) (no (unknown) (unknown) 30 mg PO QAM Qty: (units (unknown) date) 30 0RF unknown) (unknown) (no (unknown) (unknown) 300 mg PO TID Qty: (units (unknown) date) 450 3RF unknown) (unknown) (no (unknown) (unknown) 50 mg-325 mg-40 mg (units (unknown) date) tablet PRN pain #60 unknown) tabs (unknown) (no (unknown) (unknown) 60 mg PO DAILY (units (unknown) date) Qty: 90 3RF unknown) (unknown) (no (unknown) (unknown) 650 mg PO QID PRN (units (unknown) date) (Reason: pain) Qty: unknown) 60 0RF (unknown) (no (unknown) (unknown) 75 mg PO BID PRN (units (unknown) date) (Reason: pain) Qty: unknown) 60 1RF (unknown) (no (unknown) (unknown) ADHD (-1982) (units (u nknown) date) unknown) (unknown) (no (unknown) (unknown) ALT (<35) IU/L (units (unknown) date) unknown) (unknown) (no (unknown) (unknown) ALT 23 (<35) IU/L (units (unknown) date) unknown) (unknown) (no (unknown) (unknown) AST (14-36) IU/L (units (unknown) date) unknown) (unknown) (no (unknown) (unknown) AST 22 (14-36) (units (unknown) date) IU/L unknown) (unknown) (no (unknown) (unknown) Abnormal Pap smear (units (unknown) date) of cervix (-2017) unknown) (unknown) (no (unknown) (unknown) Acetaminophen < 10 (units (unknown) date) (10-30) ug/mL unknown) (unknown) (no (unknown) (unknown) Acetaminophen (units ( unknown) date) (10-30) ug/mL unknown) (unknown) (no (unknown) (unknown) Acetaminophen Stat (units (unknown) date) unknown) (unknown) (no (unknown) (unknown) Age/Sex: 41 / F (units (unknown) date) unknown) (unknown) (no (unknown) (unknown) Albumin (3.5-5.0) (units (unknown) date) g/dL unknown) (unknown) (no (unknown) (unknown) Albumin 4.3 (units (un known) date) (3.5-5.0) g/dL unknown) (unknown) (no (unknown) (unknown) Albumin/Globulin (units (unknown) date) Ratio (1.0-2.8) unknown) (unknown) (no (unknown) (unknown) Albumin/Globulin (units (unknown) date) Ratio 1.2 (1.0-2.8) unknown) (unknown) (no (unknown) (unknown) Alkaline (units (unkno wn) date) Phosphatase unknown) (38-126) U/L (unknown) (no (unknown) (unknown) Alkaline (units (unkno wn) date) Phosphatase 89 unknown) (38-126) U/L (unknown) (no (unknown) (unknown) Allergies (-1988) (units (unknown) date) unknown) (unknown) (no (unknown) (unknown) Allergies (units (unkn own) date) unknown) (unknown) (no (unknown) (unknown) Allergy/AdvReac (units (unknown) date) Type Severity unknown) Reaction Status Date / Time (unknown) (no (unknown) (unknown) Amorphous Sediment (units (unknown) date) 2 unknown) (unknown) (no (unknown) (unknown) Amorphous Sediment (units (unknown) date) unknown) (unknown) (no (unknown) (unknown) Anesthesia (units (unk nown) date) unknown) (unknown) (no (unknown) (unknown) Anxiety (-2002) (units (unknown) date) unknown) (unknown) (no (unknown) (unknown) BUN (7-17) mg/dL (units (unknown) date) unknown) (unknown) (no (unknown) (unknown) BUN 9 (7-17) mg/dL (units (unknown) date) unknown) (unknown) (no (unknown) (unknown) BUN/Creatinine (units (unknown) date) Ratio (6-22) unknown) (unknown) (no (unknown) (unknown) BUN/Creatinine (units (unknown) date) Ratio 16.1 (6-22) unknown) (unknown) (no (unknown) (unknown) Back pain at L4-L5 (units (unknown) date) level (-2015) unknown) (unknown) (no (unknown) (unknown) Baso # (Auto) (units ( unknown) date) (0-100) /uL unknown) (unknown) (no (unknown) (unknown) Baso # (Auto) 100 (units (unknown) date) (0-100) /uL unknown) (unknown) (no (unknown) (unknown) Baso % (Auto) (units ( unknown) date) (0-2) % unknown) (unknown) (no (unknown) (unknown) Baso % (Auto) 1.3 (units (unknown) date) (0-2) % unknown) (unknown) (no (unknown) (unknown) Biliary colic (units ( unknown) date) unknown) (unknown) (no (unknown) (unknown) Blood Pressure (units (unknown) date) 147/94 H 03 unknown) 15:12 (unknown) (no (unknown) (unknown) Blood Pressure (units (unknown) date) 147/94 H unknown) (unknown) (no (unknown) (unknown) Mari Skinner ARNP (units (unknown) date) [Primary Care unknown) Provider] (unknown) (no (unknown) (unknown) COVID19 -Nasal (units (unknown) date) RAPID/Pre-Proc Stat unknown) (unknown) (no (unknown) (unknown) Calcium (8.4-10.2) (units (unknown) date) mg/dL unknown) (unknown) (no (unknown) (unknown) Calcium 8.8 (units (un known) date) (8.4-10.2) mg/dL unknown) (unknown) (no (unknown) (unknown) Carbon Dioxide (units (unknown) date) (22-32) mmol/L unknown) (unknown) (no (unknown) (unknown) Carbon Dioxide 24 (units (unknown) date) (22-32) mmol/L unknown) (unknown) (no (unknown) (unknown) Chicken pox (units (un known) date) () unknown) (unknown) (no (unknown) (unknown) Chief Complaint: (units (unknown) date) Psychiatric unknown) Symptoms (unknown) (no (unknown) (unknown) Chloride (98-107) (units (unknown) date) mmol/L unknown) (unknown) (no (unknown) (unknown) Chloride 109 H (units (unknown) date) (98-107) mmol/L unknown) (unknown) (no (unknown) (unknown) Chronic hip pain, (units (unknown) date) bilateral unknown) (unknown) (no (unknown) (unknown) Chronic right hip (units (unknown) date) pain unknown) (unknown) (no (unknown) (unknown) Colon polyps (units (u nknown) date) () unknown) (unknown) (no (unknown) (unknown) Complete Blood (units (unknown) date) Count AUTO DIFF unknown) Stat (unknown) (no (unknown) (unknown) Comprehensive (units ( unknown) date) Metabolic Panel unknown) Stat (unknown) (no (unknown) (unknown) Consult to [facility] [facility] [place] - (units (unknown) date) [employer] unknown) Stat (unknown) (no (unknown) (unknown) Course (units (unkno wn) date) unknown) (unknown) (no (unknown) (unknown) Creatinine (units (unk nown) date) (0.52-1.04) mg/dL unknown) (unknown) (no (unknown) (unknown) Creatinine 0.56 (units (unknown) date) (0.52-1.04) mg/dL unknown) (unknown) (no (unknown) (unknown) : 1980 (units (unknown) date) Acct:[id number] unknown) (unknown) (no (unknown) (unknown) Date of Service: (units (unknown) date) 08/10/22 unknown) (unknown) (no (unknown) (unknown) Departure (units (unkn own) date) unknown) (unknown) (no (unknown) (unknown) Depression (-2002) (units (unknown) date) unknown) (unknown) (no (unknown) (unknown) Diabetes mellitus (units (unknown) date) unknown) (unknown) (no (unknown) (unknown) Discharge Plan (units (unknown) date) unknown) (unknown) (no (unknown) (unknown) ED Orders (units (unkn own) date) unknown) (unknown) (no (unknown) (unknown) ER Physician: (units ( unknown) date) Raúl Stauffer unknown) (unknown) (no (unknown) (unknown) Effexor AdvReac (units (unknown) date) Mild Skin Uncoded unknown) 04/10/22 12:15 (unknown) (no (unknown) (unknown) Emergency Report (units (unknown) date) unknown) (unknown) (no (unknown) (unknown) Eos # (Auto) (units (u nknown) date) (0-450) /uL unknown) (unknown) (no (unknown) (unknown) Eos # (Auto) 200 (units (unknown) date) (0-450) /uL unknown) (unknown) (no (unknown) (unknown) Eos % (Auto) (2-4) (units (unknown) date) % unknown) (unknown) (no (unknown) (unknown) Eos % (Auto) 2.9 (units (unknown) date) (2-4) % unknown) (unknown) (no (unknown) (unknown) Estimated GFR > 60 (units (unknown) date) (>60) mL/min unknown) (unknown) (no (unknown) (unknown) Estimated GFR (units ( unknown) date) (>60) mL/min unknown) (unknown) (no (unknown) (unknown) Ethanol (ETOH) (units (unknown) date) Stat unknown) (unknown) (no (unknown) (unknown) Ethyl Alcohol < 10 (units (unknown) date) ( - 10) mg/dL unknown) (unknown) (no (unknown) (unknown) Ethyl Alcohol ( - (units (unknown) date) 10) mg/dL unknown) (unknown) (no (unknown) (unknown) Exam (units (unkno wn) date) unknown) (unknown) (no (unknown) (unknown) Fall (units (unkno wn) date) unknown) (unknown) (no (unknown) (unknown) Family History (units (unknown) date) (Reviewed 08/01/22 unknown) @ 09:14 by Mari Brown, ACCOUNT REVIEW SPECIALIST) (unknown) (no (unknown) (unknown) Father (units (unknown) date) Cancer unknown) (unknown) (no (unknown) (unknown) Fibroids (-2018) (units (unknown) date) unknown) (unknown) (no (unknown) (unknown) Fibromyalgia (units (u nknown) date) unknown) (unknown) (no (unknown) (unknown) Forgetfulness (units ( unknown) date) unknown) (unknown) (no (unknown) (unknown) Free T4 (units (unkno wn) date) (0.78-2.19) ng/dL unknown) (unknown) (no (unknown) (unknown) Free T4 1.32 (units (u nknown) date) (0.78-2.19) ng/dL unknown) (unknown) (no (unknown) (unknown) Free T4, Direct (units (unknown) date) Thyroxine Stat unknown) (unknown) (no (unknown) (unknown) General (units (unkno wn) date) unknown) (unknown) (no (unknown) (unknown) Globulin (1.7-4.1) (units (unknown) date) g/dL unknown) (unknown) (no (unknown) (unknown) Globulin 3.5 (units (u nknown) date) (1.7-4.1) g/dL unknown) (unknown) (no (unknown) (unknown) Glucose (70-100) (units (unknown) date) mg/dL unknown) (unknown) (no (unknown) (unknown) Glucose 94 (units (unk nown) date) (70-100) mg/dL unknown) (unknown) (no (unknown) (unknown) Grandfather Lung (units (unknown) date) cancer unknown) (unknown) (no (unknown) (unknown) Grandmother (units (un known) date) Cancer unknown) (unknown) (no (unknown) (unknown) HPI - Psych (units (un known) date) unknown) (unknown) (no (unknown) (unknown) Hct (36-46) % (units ( unknown) date) unknown) (unknown) (no (unknown) (unknown) Hct 39.1 (36-46) % (units (unknown) date) unknown) (unknown) (no (unknown) (unknown) Heavy menstrual (units (unknown) date) period unknown) (unknown) (no (unknown) (unknown) Hgb (12.0-16.0) (units (unknown) date) g/dL unknown) (unknown) (no (unknown) (unknown) Hgb 13.2 (units (unkno wn) date) (12.0-16.0) g/dL unknown) (unknown) (no (unknown) (unknown) History of bipolar (units (unknown) date) disorder unknown) (unknown) (no (unknown) (unknown) History of heart (units (unknown) date) disease unknown) (unknown) (no (unknown) (unknown) History of (units (unk nown) date) placement of ear unknown) tubes (-02/08/86) (unknown) (no (unknown) (unknown) History of (units (unk nown) date) recurrent ear unknown) infection (unknown) (no (unknown) (unknown) Home Medications (units (unknown) date) unknown) (unknown) (no (unknown) (unknown) Hypertension (units (u nknown) date) unknown) (unknown) (no (unknown) (unknown) Initial Vital (units ( unknown) date) Signs unknown) (unknown) (no (unknown) (unknown) Initial Vital (units ( unknown) date) Signs: unknown) (unknown) (no (unknown) (unknown) [facility] (units (unknown) date) [address] unknown) [place] [address] (unknown) (no (unknown) (unknown) Lab Data (units (unkno wn) date) unknown) (unknown) (no (unknown) (unknown) Lab Results (units (un known) date) unknown) (unknown) (no (unknown) (unknown) Labs: (units (unkno wn) date) unknown) (unknown) (no (unknown) (unknown) Left shoulder pain (units (unknown) date) unknown) (unknown) (no (unknown) (unknown) Liver cancer (units (u nknown) date) unknown) (unknown) (no (unknown) (unknown) Lymph # (Auto) (units (unknown) date) (2066-5578) /uL unknown) (unknown) (no (unknown) (unknown) Lymph # (Auto) (units (unknown) date) 2800 (5420-6310) unknown) /uL (unknown) (no (unknown) (unknown) Lymph % (Auto) (units (unknown) date) (25-40) % unknown) (unknown) (no (unknown) (unknown) Lymph % (Auto) (units (unknown) date) 34.5 (25-40) % unknown) (unknown) (no (unknown) (unknown) MCH (26-34) PG (units (unknown) date) unknown) (unknown) (no (unknown) (unknown) MCH 27.6 (26-34) (units (unknown) date) PG unknown) (unknown) (no (unknown) (unknown) MCHC (30-36) % (units (unknown) date) unknown) (unknown) (no (unknown) (unknown) MCHC 33.7 (30-36) (units (unknown) date) % unknown) (unknown) (no (unknown) (unknown) MCV (80-100) fL (units (unknown) date) unknown) (unknown) (no (unknown) (unknown) MCV 82.1 (80-100) (units (unknown) date) fL unknown) (unknown) (no (unknown) (unknown) MDM - Psych (units (un known) date) unknown) (unknown) (no (unknown) (unknown) Medical History (units (unknown) date) (Reviewed 08/01/22 unknown) @ 09:14 by IKER Ying) (unknown) (no (unknown) (unknown) Medication (units (unk nown) date) Instructions unknown) Recorded Confirmed (unknown) (no (unknown) (unknown) Medication (units (unk nown) date) Instructions unknown) Recorded (unknown) (no (unknown) (unknown) Mental health (units ( unknown) date) problem unknown) (unknown) (no (unknown) (unknown) Migraines (-1994) (units (unknown) date) unknown) (unknown) (no (unknown) (unknown) S[place] # (Auto) (units ( unknown) date) (0-900) /uL unknown) (unknown) (no (unknown) (unknown) Sully # (Auto) 500 (units (unknown) date) (0-900) /uL unknown) (unknown) (no (unknown) (unknown) [place] % (Auto) (units ( unknown) date) (3-14) % unknown) (unknown) (no (unknown) (unknown) S[place] % (Auto) 6.0 (units (unknown) date) (3-14) % unknown) (unknown) (no (unknown) (unknown) Mother (units (unknown) date) Hyperlipidemia unknown) (unknown) (no (unknown) (unknown) Multi Vitamin (units ( unknown) date) 11/04/17 08/01/22 unknown) (unknown) (no (unknown) (unknown) Multi Vitamin (units ( unknown) date) unknown) (unknown) (no (unknown) (unknown) Neut # (Auto) (units ( unknown) date) (2681-0112) /uL unknown) (unknown) (no (unknown) (unknown) Neut # (Auto) 4500 (units (unknown) date) (0219-3302) /uL unknown) (unknown) (no (unknown) (unknown) Neut % (Auto) (units ( unknown) date) (50-75) % unknown) (unknown) (no (unknown) (unknown) Neut % (Auto) 55.3 (units (unknown) date) (50-75) % unknown) (unknown) (no (unknown) (unknown) No Action (units (unkn own) date) unknown) (unknown) (no (unknown) (unknown) Non-healing wound (units (unknown) date) unknown) (unknown) (no (unknown) (unknown) Not currently (units ( unknown) date) unknown) (unknown) (no (unknown) (unknown) Ordered: (units (unkno wn) date) unknown) (unknown) (no (unknown) (unknown) Orders (units (unkno wn) date) unknown) (unknown) (no (unknown) (unknown) Oxygen Delivery (units (unknown) date) Method Room Air unknown) 08/10/22 15:12 (unknown) (no (unknown) (unknown) Oxygen Delivery (units (unknown) date) Method Room Air unknown) (unknown) (no (unknown) (unknown) Painful menstrual (units (unknown) date) periods unknown) (unknown) (no (unknown) (unknown) Patient History (units (unknown) date) unknown) 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 (unknown) (no (unknown) (unknown) Plt Count (units (unkn own) date) (150-400) X103/uL unknown) (unknown) (no (unknown) (unknown) Plt Count 250 (units ( unknown) date) (150-400) X103/uL unknown) (unknown) (no (unknown) (unknown) Potassium (units (unkn own) date) (3.4-5.1) mmol/L unknown) (unknown) (no (unknown) (unknown) Potassium 3.4 (units ( unknown) date) (3.4-5.1) mmol/L unknown) (unknown) (no (unknown) (unknown) Test (units (unknown) date) Urine Stat unknown) (unknown) (no (unknown) (unknown) Prescriptions: (units (unknown) date) unknown) (unknown) (no (unknown) (unknown) Previous Rx's (units ( unknown) date) unknown) (unknown) (no (unknown) (unknown) Pulse Oximetry 97 (units (unknown) date) 08/10/22 15:12 unknown) (unknown) (no (unknown) (unknown) Pulse Oximetry 97 (units (unknown) date) unknown) (unknown) (no (unknown) (unknown) Pulse Rate 84 (units ( unknown) date) 08/10/22 15:12 unknown) (unknown) (no (unknown) (unknown) Pulse Rate 84 (units ( unknown) date) unknown) (unknown) (no (unknown) (unknown) RBC (4.0-5.2) (units ( unknown) date) X106/uL unknown) (unknown) (no (unknown) (unknown) RBC 4.76 (4.0-5.2) (units (unknown) date) X106/uL unknown) (unknown) (no (unknown) (unknown) RDW (11.6-14.8) % (units (unknown) date) unknown) (unknown) (no (unknown) (unknown) RDW 15.8 H (units (unk nown) date) (11.6-14.8) % unknown) (unknown) (no (unknown) (unknown) Referrals: (units (unk nown) date) unknown) (unknown) (no (unknown) (unknown) Related Data (units (u nknown) date) unknown) (unknown) (no (unknown) (unknown) Respiratory Rate (units (unknown) date) 16 08/10/22 15:12 unknown) (unknown) (no (unknown) (unknown) Respiratory Rate (units (unknown) date) 16 unknown) (unknown) (no (unknown) (unknown) Right shoulder (units (unknown) date) pain unknown) (unknown) (no (unknown) (unknown) Rx Instructions: (units (unknown) date) unknown) (unknown) (no (unknown) (unknown) SARS-CoV-2 (PCR) (units (unknown) date) (Negative) unknown) (unknown) (no (unknown) (unknown) SARS-CoV-2 (PCR) (units (unknown) date) Negative (Negative) unknown) (unknown) (no (unknown) (unknown) Salicylate Stat (units (unknown) date) unknown) (unknown) (no (unknown) (unknown) Salicylates < 1.0 (units (unknown) date) (<20) mg/dL unknown) (unknown) (no (unknown) (unknown) Salicylates (<20) (units (unknown) date) mg/dL unknown) (unknown) (no (unknown) (unknown) Sciatic leg pain (units (unknown) date) unknown) (unknown) (no (unknown) (unknown) Scoliosis (-1989) (units (unknown) date) unknown) (unknown) (no (unknown) (unknown) See Rx (units (unkno wn) date) Instructions PO unknown) .COMPLEX PRN (Reason: pain) Qty: 60 3RF (unknown) (no (unknown) (unknown) Signed By: (units (unk nown) date) unknown) (unknown) (no (unknown) (unknown) Smoking Status: (units (unknown) date) Current some day unknown) smoker (unknown) (no (unknown) (unknown) Social History (units (unknown) date) (Reviewed 05/28/21 unknown) @ 08:52 by Raúl Erwin DO) (unknown) (no (unknown) (unknown) Sodium (137-145) (units (unknown) date) mmol/L unknown) (unknown) (no (unknown) (unknown) Sodium 141 (units (unk nown) date) (137-145) mmol/L unknown) (unknown) (no (unknown) (unknown) Stated Complaint: (units (unknown) date) mental health want unknown) to kill herself (unknown) (no (unknown) (unknown) Substance Use (units ( unknown) date) Type: marijuana unknown) (unknown) (no (unknown) (unknown) Surgical History (units (unknown) date) (Reviewed 08/01/22 unknown) @ 09:14 by IKER Ying) (unknown) (no (unknown) (unknown) Take 1 capsule am (units (unknown) date) and afternoon, 3 unknown) capsules (900mg) at bedtime daily (unknown) (no (unknown) (unknown) Take 1 tab (30mg) (units (unknown) date) daily for ADHD unknown) (unknown) (no (unknown) (unknown) Take 1 tab daily (units (unknown) date) (to take the place unknown) of 2-30mg tabs that insurance won't (unknown) (no (unknown) (unknown) Take 1-2 tablets (units (unknown) date) every 6-8 hours as unknown) needed for headaches (unknown) (no (unknown) (unknown) Temperature 97.7 F (units (unknown) date) 08/10/22 15:12 unknown) (unknown) (no (unknown) (unknown) Temperature 97.7 F (units (unknown) date) unknown) (unknown) (no (unknown) (unknown) Thyroid (units (unkno wn) date) Stimulating Hormone unknown) Stat (unknown) (no (unknown) (unknown) Thyroid disease (units (unknown) date) unknown) (unknown) (no (unknown) (unknown) Time Seen by (units (u nknown) date) Provider: 08/10/22 unknown) 17:14 (unknown) (no (unknown) (unknown) Total Bilirubin (units (unknown) date) (0.2-1.3) mg/dL unknown) (unknown) (no (unknown) (unknown) Total Bilirubin (units (unknown) date) 0.4 (0.2-1.3) mg/dL unknown) (unknown) (no (unknown) (unknown) Total Protein (units ( unknown) date) (6.3-8.2) g/dL unknown) (unknown) (no (unknown) (unknown) Total Protein 7.8 (units (unknown) date) (6.3-8.2) g/dL unknown) (unknown) (no (unknown) (unknown) U Benzodiazepines (units (unknown) date) Scrn (Negative) unknown) (unknown) (no (unknown) (unknown) U Benzodiazepines (units (unknown) date) Scrn Negative unknown) (Negative) (unknown) (no (unknown) (unknown) U Marijuana (THC) (units (unknown) date) Screen (Negative) unknown) (unknown) (no (unknown) (unknown) U Marijuana (THC) (units (unknown) date) Screen Positive H unknown) (Negative) (unknown) (no (unknown) (unknown) U Methamphetamines (units (unknown) date) Scrn (Negative) unknown) (unknown) (no (unknown) (unknown) U Methamphetamines (units (unknown) date) Scrn Negative unknown) (Negative) (unknown) (no (unknown) (unknown) U Opiates 300ng/mL (units (unknown) date) cut (Negative) unknown) (unknown) (no (unknown) (unknown) U Opiates 300ng/mL (units (unknown) date) cut Negative unknown) (Negative) (unknown) (no (unknown) (unknown) U Tricyclic (units (un known) date) Antidepress unknown) (Negative) (unknown) (no (unknown) (unknown) U Tricyclic (units (un known) date) Antidepress unknown) Negative (Negative) (unknown) (no (unknown) (unknown) UTI (urinary tract (units (unknown) date) infection) unknown) (unknown) (no (unknown) (unknown) Ur Amphetamines (units (unknown) date) Screen (Negative) unknown) (unknown) (no (unknown) (unknown) Ur Amphetamines (units (unknown) date) Screen Positive H unknown) (Negative) (unknown) (no (unknown) (unknown) Ur Barbiturates (units (unknown) date) Screen (Negative) unknown) (unknown) (no (unknown) (unknown) Ur Barbiturates (units (unknown) date) Screen Positive H unknown) (Negative) (unknown) (no (unknown) (unknown) Ur Culture (units (unk nown) date) Indicated? Specimen unknown) cultured (unknown) (no (unknown) (unknown) Ur Culture (units (unk nown) date) Indicated? unknown) (unknown) (no (unknown) (unknown) Ur Leukocyte (units (u nknown) date) Esterase (NEGATIVE) unknown) (unknown) (no (unknown) (unknown) Ur Leukocyte (units (u nknown) date) Esterase Negative unknown) (NEGATIVE) (unknown) (no (unknown) (unknown) Ur MDMA Scrn (units (u nknown) date) (Ecstasy) unknown) (Negative) (unknown) (no (unknown) (unknown) Ur MDMA Scrn (units (u nknown) date) (Ecstasy) Negative unknown) (Negative) (unknown) (no (unknown) (unknown) Ur Oxycodone (units (u nknown) date) Screen (Negative) unknown) (unknown) (no (unknown) (unknown) Ur Oxycodone (units (u nknown) date) Screen Negative unknown) (Negative) (unknown) (no (unknown) (unknown) Ur Phencyclidine (units (unknown) date) Scrn (Negative) unknown) (unknown) (no (unknown) (unknown) Ur Phencyclidine (units (unknown) date) Scrn Negative unknown) (Negative) (unknown) (no (unknown) (unknown) Ur Specific (units (un known) date) [place] unknown) (1.000-1.035) (unknown) (no (unknown) (unknown) Ur Specific (units (un known) date) [place] 1.010 unknown) (1.000-1.035) (unknown) (no (unknown) (unknown) Urinalysis and (units (unknown) date) Microscopic Stat unknown) (unknown) (no (unknown) (unknown) Urine Appearance (units (unknown) date) Clear unknown) (unknown) (no (unknown) (unknown) Urine Appearance (units (unknown) date) unknown) (unknown) (no (unknown) (unknown) Urine Bacteria (units (unknown) date) (None) unknown) (unknown) (no (unknown) (unknown) Urine Bacteria (units (unknown) date) Occasional (0-1) unknown) (None) (unknown) (no (unknown) (unknown) Urine Bilirubin (units (unknown) date) (NEGATIVE) unknown) (unknown) (no (unknown) (unknown) Urine Bilirubin (units (unknown) date) Negative (NEGATIVE) unknown) (unknown) (no (unknown) (unknown) Urine Cocaine (units ( unknown) date) Screen (Negative) unknown) (unknown) (no (unknown) (unknown) Urine Cocaine (units ( unknown) date) Screen Negative unknown) (Negative) (unknown) (no (unknown) (unknown) Urine Color Yellow (units (unknown) date) unknown) (unknown) (no (unknown) (unknown) Urine Color (units (un known) date) unknown) (unknown) (no (unknown) (unknown) Urine Culture Stat (units (unknown) date) unknown) (unknown) (no (unknown) (unknown) Urine Drug Screen, (units (unknown) date) Rapid Stat unknown) (unknown) (no (unknown) (unknown) Urine Glucose (UA) (units (unknown) date) (Negative) g/dL unknown) (unknown) (no (unknown) (unknown) Urine Glucose (UA) (units (unknown) date) Negative (Negative) unknown) g/dL (unknown) (no (unknown) (unknown) Urine Ketones (units ( unknown) date) (NEGATIVE) unknown) (unknown) (no (unknown) (unknown) Urine Ketones (units ( unknown) date) Negative (NEGATIVE) unknown) (unknown) (no (unknown) (unknown) Urine Methadone (units (unknown) date) Screen (Negative) unknown) (unknown) (no (unknown) (unknown) Urine Methadone (units (unknown) date) Screen Negative unknown) (Negative) (unknown) (no (unknown) (unknown) Urine Nitrate (units ( unknown) date) (Negative) unknown) (unknown) (no (unknown) (unknown) Urine Nitrate (units ( unknown) date) Negative (Negative) unknown) (unknown) (no (unknown) (unknown) Urine Occult Blood (units (unknown) date) (Negative) unknown) (unknown) (no (unknown) (unknown) Urine Occult Blood (units (unknown) date) Trace-intact unknown) (Negative) (unknown) (no (unknown) (unknown) Urine (units (unknown) date) Test (Negative) unknown) (unknown) (no (unknown) (unknown) Urine (units (unknown) date) Test Negative unknown) (Negative) (unknown) (no (unknown) (unknown) Urine Protein (units ( unknown) date) (Negative) unknown) (unknown) (no (unknown) (unknown) Urine Protein (units ( unknown) date) Negative (Negative) unknown) (unknown) (no (unknown) (unknown) Urine RBC (units (unkn own) date) (0-5/HPF) unknown) (unknown) (no (unknown) (unknown) Urine RBC 1-5/hpf (units (unknown) date) (0-5/HPF) unknown) (unknown) (no (unknown) (unknown) Urine Urobilinogen (units (unknown) date) (0.2) E.U./dL unknown) (unknown) (no (unknown) (unknown) Urine Urobilinogen (units (unknown) date) 0.2 (0.2) E.U./dL unknown) (unknown) (no (unknown) (unknown) Urine WBC (units (unkn own) date) (0-5/HPF) unknown) (unknown) (no (unknown) (unknown) Urine WBC None (units (unknown) date) seen (0-5/HPF) unknown) (unknown) (no (unknown) (unknown) Urine pH (4.5-8.0) (units (unknown) date) unknown) (unknown) (no (unknown) (unknown) Urine pH 7.0 (units (u nknown) date) (4.5-8.0) unknown) (unknown) (no (unknown) (unknown) Vaginal delivery (units (unknown) date) unknown) (unknown) (no (unknown) (unknown) Vital Signs - 8 hr (units (unknown) date) unknown) (unknown) (no (unknown) (unknown) Vital Signs (units (un known) date) unknown) (unknown) (no (unknown) (unknown) Vital signs: (units (u nknown) date) unknown) (unknown) (no (unknown) (unknown) WBC (4.5-11.0) (units (unknown) date) X103/uL unknown) (unknown) (no (unknown) (unknown) WBC 8.1 (4.5-11.0) (units (unknown) date) X103/uL unknown) (unknown) (no (unknown) (unknown) [Embedded Image (units (unknown) date) Not Available] unknown) (unknown) (no (unknown) (unknown) acetaminophen 325 (units (unknown) date) mg capsule 650 mg unknown) PO QID PRN pain #60 caps 02/28/22 (unknown) (no (unknown) (unknown) acetaminophen (units ( unknown) date) [Tylenol] 325 mg unknown) capsule (unknown) (no (unknown) (unknown) alcohol intake (units (unknown) date) frequency: unknown) holidays/special occasions only (unknown) (no (unknown) (unknown) alcohol intake: (units (unknown) date) never unknown) (unknown) (no (unknown) (unknown) amoxicillin (units (un known) date) AdvReac Diarrhea unknown) Verified 04/10/22 10:58 (unknown) (no (unknown) (unknown) breasts (units (unkno wn) date) unknown) (unknown) (no (unknown) (unknown) butalbital-acetami (units (unknown) date) nophen-caff unknown) 50-325-40 mg tablet (unknown) (no (unknown) (unknown) butalbital-acetami (units (unknown) date) nophen-caffeine See unknown) Rx Instructions PO .COMPLEX 08/01/22 (unknown) (no (unknown) (unknown) changes of (units (unk nown) date) unknown) (unknown) (no (unknown) (unknown) cover). (units (unkno wn) date) unknown) (unknown) (no (unknown) (unknown) dextroamphetamine- (units (unknown) date) amphetamine 30 mg unknown) capsule,extended release 24hr (unknown) (no (unknown) (unknown) dextroamphetamine- (units (unknown) date) amphetamine ER 30 unknown) mg PO QAM #30 caps 08/01/22 (unknown) (no (unknown) (unknown) diclofenac sodium (units (unknown) date) 75 mg 75 mg PO BID unknown) PRN pain #60 tabs 05/29/22 (unknown) (no (unknown) (unknown) diclofenac sodium (units (unknown) date) 75 mg unknown) tablet,delayed release (DR/EC) (unknown) (no (unknown) (unknown) duloxetine 60 mg (units (unknown) date) capsule,delayed 60 unknown) mg PO DAILY #90 caps 07/17/22 (unknown) (no (unknown) (unknown) duloxetine 60 mg (units (unknown) date) capsule,delayed unknown) release(DR/EC) (unknown) (no (unknown) (unknown) gabapentin 300 mg (units (unknown) date) capsule 300 mg PO unknown) TID #450 caps 01/25/22 (unknown) (no (unknown) (unknown) gabapentin 300 mg (units (unknown) date) capsule unknown) (unknown) (no (unknown) (unknown) household members: (units (unknown) date) significant other unknown) and children (unknown) (no (unknown) (unknown) marital status: (units (unknown) date) unmarried,living unknown) together (unknown) (no (unknown) (unknown) occupational (units (u nknown) date) status: employed unknown) (unknown) (no (unknown) (unknown) release (units (unkno wn) date) unknown) (unknown) (no (unknown) (unknown) start after (units (un known) date) finishing unknown) ketoralac. take with food. (unknown) (no (unknown) (unknown) substance use (units ( unknown) date) type: does not use unknown) (unknown) (no (unknown) (unknown) tablet,delayed (units (unknown) date) release unknown) Result panel 108 (unknown) (no (unknown) (unknown) (no value) (units (unk nown) date) unknown) (unknown) (no (unknown) (unknown) (Tylenol) (units (unkn own) date) unknown) (unknown) (no (unknown) (unknown) 08/10/22 08/10/22 (units (unknown) date) 08/10/22 unknown) Range/Units (unknown) (no (unknown) (unknown) 08/10/22 15:20 (units (unknown) date) unknown) (unknown) (no (unknown) (unknown) 08/10/22 15:30 (units (unknown) date) unknown) (unknown) (no (unknown) (unknown) 08/10/22 (units (unkno wn) date) Range/Units unknown) (unknown) (no (unknown) (unknown) 08/10/22 (units (unkno wn) date) unknown) (unknown) (no (unknown) (unknown) [id number] (units (unkno wn) date) unknown) (unknown) (no (unknown) (unknown) 15:12 (units (unkno wn) date) unknown) (unknown) (no (unknown) (unknown) 15:30 15:30 15:30 (units (unknown) date) unknown) (unknown) (no (unknown) (unknown) 15:30 (units (unkno wn) date) unknown) (unknown) (no (unknown) (unknown) 30 mg 24hr (units (unk nown) date) capsule,extend unknown) release (unknown) (no (unknown) (unknown) 30 mg PO QAM Qty: (units (unknown) date) 30 0RF unknown) (unknown) (no (unknown) (unknown) 300 mg PO TID Qty: (units (unknown) date) 450 3RF unknown) (unknown) (no (unknown) (unknown) 41-year-old female (units (unknown) date) that was brought to unknown) the emergency department for suicidal (unknown) (no (unknown) (unknown) 41-year-old (units (un known) date) female, daily unknown) smoker with history of depression and fibromyalgia, (unknown) (no (unknown) (unknown) 50 mg-325 mg-40 mg (units (unknown) date) tablet PRN pain #60 unknown) tabs (unknown) (no (unknown) (unknown) 60 mg PO DAILY (units (unknown) date) Qty: 90 3RF unknown) (unknown) (no (unknown) (unknown) 650 mg PO QID PRN (units (unknown) date) (Reason: pain) Qty: unknown) 60 0RF (unknown) (no (unknown) (unknown) 75 mg PO BID PRN (units (unknown) date) (Reason: pain) Qty: unknown) 60 1RF (unknown) (no (unknown) (unknown) ADHD (-1983) (units (u nknown) date) unknown) (unknown) (no (unknown) (unknown) ALT (<35) IU/L (units (unknown) date) unknown) (unknown) (no (unknown) (unknown) ALT 23 (<35) IU/L (units (unknown) date) unknown) (unknown) (no (unknown) (unknown) AST (14-36) IU/L (units (unknown) date) unknown) (unknown) (no (unknown) (unknown) AST 22 (14-36) (units (unknown) date) IU/L unknown) (unknown) (no (unknown) (unknown) Abnormal Pap smear (units (unknown) date) of cervix (-2018) unknown) (unknown) (no (unknown) (unknown) Acetaminophen < 10 (units (unknown) date) (10-30) ug/mL unknown) (unknown) (no (unknown) (unknown) Acetaminophen (units ( unknown) date) (10-30) ug/mL unknown) (unknown) (no (unknown) (unknown) Acetaminophen Stat (units (unknown) date) unknown) (unknown) (no (unknown) (unknown) Age/Sex: 41 / F (units (unknown) date) unknown) (unknown) (no (unknown) (unknown) Albumin (3.5-5.0) (units (unknown) date) g/dL unknown) (unknown) (no (unknown) (unknown) Albumin 4.3 (units (un known) date) (3.5-5.0) g/dL unknown) (unknown) (no (unknown) (unknown) Albumin/Globulin (units (unknown) date) Ratio (1.0-2.8) unknown) (unknown) (no (unknown) (unknown) Albumin/Globulin (units (unknown) date) Ratio 1.2 (1.0-2.8) unknown) (unknown) (no (unknown) (unknown) Alkaline (units (unkno wn) date) Phosphatase unknown) (38-126) U/L (unknown) (no (unknown) (unknown) Alkaline (units (unkno wn) date) Phosphatase 89 unknown) (38-126) U/L (unknown) (no (unknown) (unknown) Allergies (-1988) (units (unknown) date) unknown) (unknown) (no (unknown) (unknown) Allergies (units (unkn own) date) unknown) (unknown) (no (unknown) (unknown) Allergy/AdvReac (units (unknown) date) Type Severity unknown) Reaction Status Date / Time (unknown) (no (unknown) (unknown) Amorphous Sediment (units (unknown) date) 2 unknown) (unknown) (no (unknown) (unknown) Amorphous Sediment (units (unknown) date) unknown) (unknown) (no (unknown) (unknown) Anesthesia (units (unk nown) date) unknown) (unknown) (no (unknown) (unknown) Anxiety (-2002) (units (unknown) date) unknown) (unknown) (no (unknown) (unknown) BUN (7-17) mg/dL (units (unknown) date) unknown) (unknown) (no (unknown) (unknown) BUN 9 (7-17) mg/dL (units (unknown) date) unknown) (unknown) (no (unknown) (unknown) BUN/Creatinine (units (unknown) date) Ratio (6-22) unknown) (unknown) (no (unknown) (unknown) BUN/Creatinine (units (unknown) date) Ratio 16.1 (6-22) unknown) (unknown) (no (unknown) (unknown) Back pain at L4-L5 (units (unknown) date) level (-2014) unknown) (unknown) (no (unknown) (unknown) Baso # (Auto) (units ( unknown) date) (0-100) /uL unknown) (unknown) (no (unknown) (unknown) Baso # (Auto) 100 (units (unknown) date) (0-100) /uL unknown) (unknown) (no (unknown) (unknown) Baso % (Auto) (units ( unknown) date) (0-2) % unknown) (unknown) (no (unknown) (unknown) Baso % (Auto) 1.3 (units (unknown) date) (0-2) % unknown) (unknown) (no (unknown) (unknown) Biliary colic (units ( unknown) date) unknown) (unknown) (no (unknown) (unknown) Blood Pressure (units (unknown) date) 147/94 H 08/10/22 unknown) 15:12 (unknown) (no (unknown) (unknown) Blood Pressure (units (unknown) date) 147/94 H unknown) (unknown) (no (unknown) (unknown) Brown,Mari, ACCOUNT REVIEW SPECIALIST (units (unknown) date) [Primary Care unknown) Provider] (unknown) (no (unknown) (unknown) CARDIOVASCULAR: (units (unknown) date) Denies chest pain, unknown) palpitations, edema. (unknown) (no (unknown) (unknown) CARDIOVASCULAR: (units (unknown) date) Regular rate and unknown) rhythm without murmurs, peripheral pulses (unknown) (no (unknown) (unknown) COVID19 -Nasal (units (unknown) date) RAPID/Pre-Proc Stat unknown) (unknown) (no (unknown) (unknown) Calcium (8.4-10.2) (units (unknown) date) mg/dL unknown) (unknown) (no (unknown) (unknown) Calcium 8.8 (units (un known) date) (8.4-10.2) mg/dL unknown) (unknown) (no (unknown) (unknown) Carbon Dioxide (units (unknown) date) (22-32) mmol/L unknown) (unknown) (no (unknown) (unknown) Carbon Dioxide 24 (units (unknown) date) (22-32) mmol/L unknown) (unknown) (no (unknown) (unknown) Chicken pox (units (un known) date) () unknown) (unknown) (no (unknown) (unknown) Chief Complaint: (units (unknown) date) Psychiatric unknown) Symptoms (unknown) (no (unknown) (unknown) Chloride (98-107) (units (unknown) date) mmol/L unknown) (unknown) (no (unknown) (unknown) Chloride 109 H (units (unknown) date) (98-107) mmol/L unknown) (unknown) (no (unknown) (unknown) Chronic hip pain, (units (unknown) date) bilateral unknown) (unknown) (no (unknown) (unknown) Chronic right hip (units (unknown) date) pain unknown) (unknown) (no (unknown) (unknown) Colon polyps (units (u nknown) date) () unknown) (unknown) (no (unknown) (unknown) Complete Blood (units (unknown) date) Count AUTO DIFF unknown) Stat (unknown) (no (unknown) (unknown) Comprehensive (units ( unknown) date) Metabolic Panel unknown) Stat (unknown) (no (unknown) (unknown) Consult to [facility] - (units (unknown) date) [employer] unknown) Stat (unknown) (no (unknown) (unknown) Course (units (unkno wn) date) unknown) (unknown) (no (unknown) (unknown) Creatinine (units (unk nown) date) (0.52-1.04) mg/dL unknown) (unknown) (no (unknown) (unknown) Creatinine 0.56 (units (unknown) date) (0.52-1.04) mg/dL unknown) (unknown) (no (unknown) (unknown) : 1980 (units (unknown) date) Acct:[id number] unknown) (unknown) (no (unknown) (unknown) Date of Service: (units (unknown) date) 08/10/22 unknown) (unknown) (no (unknown) (unknown) Departure (units (unkn own) date) unknown) (unknown) (no (unknown) (unknown) Depression (-2002) (units (unknown) date) unknown) (unknown) (no (unknown) (unknown) Diabetes mellitus (units (unknown) date) unknown) (unknown) (no (unknown) (unknown) Differential (units (u nknown) date) Diagnosis unknown) (unknown) (no (unknown) (unknown) Differential (units (u nknown) date) diagnosis: Likely unknown) suicidal ideation, depression and acute anxiety (unknown) (no (unknown) (unknown) Discharge Plan (units (unknown) date) unknown) (unknown) (no (unknown) (unknown) ED Orders (units (unkn own) date) unknown) (unknown) (no (unknown) (unknown) ENT: Nose without (units (unknown) date) bleeding, purulent unknown) drainage. Throat without erythema, (unknown) (no (unknown) (unknown) ER Physician: (units ( unknown) date) Raúl Stauffer unknown) (unknown) (no (unknown) (unknown) EYES: Pupils equal (units (unknown) date) round and reactive. unknown) Extraocular motions intact. No scleral (unknown) (no (unknown) (unknown) Effexor AdvReac (units (unknown) date) Mild Skin Uncoded unknown) 04/10/22 12:15 (unknown) (no (unknown) (unknown) Emergency Report (units (unknown) date) unknown) (unknown) (no (unknown) (unknown) Eos # (Auto) (units (u nknown) date) (0-450) /uL unknown) (unknown) (no (unknown) (unknown) Eos # (Auto) 200 (units (unknown) date) (0-450) /uL unknown) (unknown) (no (unknown) (unknown) Eos % (Auto) (2-4) (units (unknown) date) % unknown) (unknown) (no (unknown) (unknown) Eos % (Auto) 2.9 (units (unknown) date) (2-4) % unknown) (unknown) (no (unknown) (unknown) Estimated GFR > 60 (units (unknown) date) (>60) mL/min unknown) (unknown) (no (unknown) (unknown) Estimated GFR (units ( unknown) date) (>60) mL/min unknown) (unknown) (no (unknown) (unknown) Ethanol (ETOH) (units (unknown) date) Stat unknown) (unknown) (no (unknown) (unknown) Ethyl Alcohol < 10 (units (unknown) date) ( - 10) mg/dL unknown) (unknown) (no (unknown) (unknown) Ethyl Alcohol ( - (units (unknown) date) 10) mg/dL unknown) (unknown) (no (unknown) (unknown) Exam Narrative: (units (unknown) date) unknown) (unknown) (no (unknown) (unknown) Exam (units (unkno wn) date) unknown) (unknown) (no (unknown) (unknown) Fall (units (unkno wn) date) unknown) (unknown) (no (unknown) (unknown) Family History (units (unknown) date) (Reviewed 08/10/22 unknown) @ 17:32 by IKER Betancourt) (unknown) (no (unknown) (unknown) Father (units (unknown) date) Cancer unknown) (unknown) (no (unknown) (unknown) Fibroids (-2018) (units (unknown) date) unknown) (unknown) (no (unknown) (unknown) Fibromyalgia (units (u nknown) date) unknown) (unknown) (no (unknown) (unknown) Forgetfulness (units ( unknown) date) unknown) (unknown) (no (unknown) (unknown) Free T4 (units (unkno wn) date) (0.78-2.19) ng/dL unknown) (unknown) (no (unknown) (unknown) Free T4 1.32 (units (u nknown) date) (0.78-2.19) ng/dL unknown) (unknown) (no (unknown) (unknown) Free T4, Direct (units (unknown) date) Thyroxine Stat unknown) (unknown) (no (unknown) (unknown) GASTROINTESTINAL: (units (unknown) date) Abdomen soft, unknown) non-tender, nondistended without guarding or (unknown) (no (unknown) (unknown) GASTROINTESTINAL: (units (unknown) date) Denies nausea, unknown) vomiting, abdominal pain, diarrhea, (unknown) (no (unknown) (unknown) GENERAL: Denies (units (unknown) date) chills, fatigue, unknown) fever, sweats. (unknown) (no (unknown) (unknown) GENERAL: This is a (units (unknown) date) well-nourished, unknown) well-developed patient, in no acute distress. (unknown) (no (unknown) (unknown) : Denies (units (unk nown) date) dysuria, frequency, unknown) incontinence, hematuria, urinary retention, (unknown) (no (unknown) (unknown) General (units (unkno wn) date) unknown) (unknown) (no (unknown) (unknown) Globulin (1.7-4.1) (units (unknown) date) g/dL unknown) (unknown) (no (unknown) (unknown) Globulin 3.5 (units (u nknown) date) (1.7-4.1) g/dL unknown) (unknown) (no (unknown) (unknown) Glucose (70-100) (units (unknown) date) mg/dL unknown) (unknown) (no (unknown) (unknown) Glucose 94 (units (unk nown) date) (70-100) mg/dL unknown) (unknown) (no (unknown) (unknown) Grandfather Lung (units (unknown) date) cancer unknown) (unknown) (no (unknown) (unknown) Grandmother (units (un known) date) Cancer unknown) (unknown) (no (unknown) (unknown) HEAD: Atraumatic. (units (unknown) date) Normocephalic. unknown) (unknown) (no (unknown) (unknown) HEENT: Denies (units ( unknown) date) sinus pain, ear unknown) pain, sore throat, difficulty swallowing, (unknown) (no (unknown) (unknown) HPI - Psych (units (un known) date) unknown) (unknown) (no (unknown) (unknown) HPI Narrative: (units (unknown) date) unknown) (unknown) (no (unknown) (unknown) Hct (36-46) % (units ( unknown) date) unknown) (unknown) (no (unknown) (unknown) Hct 39.1 (36-46) % (units (unknown) date) unknown) (unknown) (no (unknown) (unknown) Heavy menstrual (units (unknown) date) period unknown) (unknown) (no (unknown) (unknown) Hgb (12.0-16.0) (units (unknown) date) g/dL unknown) (unknown) (no (unknown) (unknown) Hgb 13.2 (units (unkno wn) date) (12.0-16.0) g/dL unknown) (unknown) (no (unknown) (unknown) History of Present (units (unknown) date) Illness unknown) (unknown) (no (unknown) (unknown) History of bipolar (units (unknown) date) disorder unknown) (unknown) (no (unknown) (unknown) History of heart (units (unknown) date) disease unknown) (unknown) (no (unknown) (unknown) History of (units (unk nown) date) placement of ear unknown) tubes (-02/08/86) (unknown) (no (unknown) (unknown) History of (units (unk nown) date) recurrent ear unknown) infection (unknown) (no (unknown) (unknown) Home Medications (units (unknown) date) unknown) (unknown) (no (unknown) (unknown) Hypertension (units (u nknown) date) unknown) (unknown) (no (unknown) (unknown) Initial Vital (units ( unknown) date) Signs unknown) (unknown) (no (unknown) (unknown) Initial Vital (units ( unknown) date) Signs: unknown) (unknown) (no (unknown) (unknown) [facility] (units (unknown) date) [address] unknown) [place] [address] (unknown) (no (unknown) (unknown) Lab Data (units (unkno wn) date) unknown) (unknown) (no (unknown) (unknown) Lab Results (units (un known) date) unknown) (unknown) (no (unknown) (unknown) Labs: (units (unkno wn) date) unknown) (unknown) (no (unknown) (unknown) Left shoulder pain (units (unknown) date) unknown) (unknown) (no (unknown) (unknown) Liver cancer (units (u nknown) date) unknown) (unknown) (no (unknown) (unknown) Lymph # (Auto) (units (unknown) date) (7226-4723) /uL unknown) (unknown) (no (unknown) (unknown) Lymph # (Auto) (units (unknown) date) 2800 (7051-8453) unknown) /uL (unknown) (no (unknown) (unknown) Lymph % (Auto) (units (unknown) date) (25-40) % unknown) (unknown) (no (unknown) (unknown) Lymph % (Auto) (units (unknown) date) 34.5 (25-40) % unknown) (unknown) (no (unknown) (unknown) MCH (26-34) PG (units (unknown) date) unknown) (unknown) (no (unknown) (unknown) MCH 27.6 (26-34) (units (unknown) date) PG unknown) (unknown) (no (unknown) (unknown) MCHC (30-36) % (units (unknown) date) unknown) (unknown) (no (unknown) (unknown) MCHC 33.7 (30-36) (units (unknown) date) % unknown) (unknown) (no (unknown) (unknown) MCV (80-100) fL (units (unknown) date) unknown) (unknown) (no (unknown) (unknown) MCV 82.1 (80-100) (units (unknown) date) fL unknown) (unknown) (no (unknown) (unknown) MDM - Psych (units (un known) date) unknown) (unknown) (no (unknown) (unknown) MDM Narrative (units ( unknown) date) unknown) (unknown) (no (unknown) (unknown) MSK: Denies (units (un known) date) weakness, joint unknown) pain, or bony pain. (unknown) (no (unknown) (unknown) MSK: Moves all (units (unknown) date) extremities. Normal unknown) range of motion, no clubbing or edema. (unknown) (no (unknown) (unknown) Medical History (units (unknown) date) (Reviewed 08/10/22 unknown) @ 17:32 by IKER Betancourt) (unknown) (no (unknown) (unknown) Medical decision (units (unknown) date) making narrative: unknown) (unknown) (no (unknown) (unknown) Medication (units (unk nown) date) Instructions unknown) Recorded Confirmed (unknown) (no (unknown) (unknown) Medication (units (unk nown) date) Instructions unknown) Recorded (unknown) (no (unknown) (unknown) Mental health (units ( unknown) date) problem unknown) (unknown) (no (unknown) (unknown) Migraines (-1993) (units (unknown) date) unknown) (unknown) (no (unknown) (unknown) Sully # (Auto) (units ( unknown) date) (0-900) /uL unknown) (unknown) (no (unknown) (unknown) Sully # (Auto) 500 (units (unknown) date) (0-900) /uL unknown) (unknown) (no (unknown) (unknown) Sully % (Auto) (units ( unknown) date) (3-14) % unknown) (unknown) (no (unknown) (unknown) Sully % (Auto) 6.0 (units (unknown) date) (3-14) % unknown) (unknown) (no (unknown) (unknown) Mother (units (unknown) date) Hyperlipidemia unknown) (unknown) (no (unknown) (unknown) Multi Vitamin (units ( unknown) date) 11/04/17 08/01/22 unknown) (unknown) (no (unknown) (unknown) Multi Vitamin (units ( unknown) date) unknown) (unknown) (no (unknown) (unknown) NECK: Trachea (units ( unknown) date) midline. No JVD or unknown) lymphadenopathy. Nontender. (unknown) (no (unknown) (unknown) NEURO: A+O x 3. (units (unknown) date) unknown) (unknown) (no (unknown) (unknown) NEUROLOGIC: Denies (units (unknown) date) weakness, unknown) dizziness, headache, numbness, confusion. (unknown) (no (unknown) (unknown) Narrative (units (unkn own) date) unknown) (unknown) (no (unknown) (unknown) Narrative: See (units (unknown) date) HPI. unknown) (unknown) (no (unknown) (unknown) Narrative: (units (unk nown) date) unknown) (unknown) (no (unknown) (unknown) Neurovascularly (units (unknown) date) intact. unknown) (unknown) (no (unknown) (unknown) Neut # (Auto) (units ( unknown) date) (3208-0937) /uL unknown) (unknown) (no (unknown) (unknown) Neut # (Auto) 4500 (units (unknown) date) (8218-5606) /uL unknown) (unknown) (no (unknown) (unknown) Neut % (Auto) (units ( unknown) date) (50-75) % unknown) (unknown) (no (unknown) (unknown) Neut % (Auto) 55.3 (units (unknown) date) (50-75) % unknown) (unknown) (no (unknown) (unknown) No Action (units (unkn own) date) unknown) (unknown) (no (unknown) (unknown) Non-healing wound (units (unknown) date) unknown) (unknown) (no (unknown) (unknown) Not currently (units ( unknown) date) unknown) (unknown) (no (unknown) (unknown) Ordered: (units (unkno wn) date) unknown) (unknown) (no (unknown) (unknown) Orders (units (unkno wn) date) unknown) (unknown) (no (unknown) (unknown) Oxygen Delivery (units (unknown) date) Method Room Air unknown) 08/10/22 15:12 (unknown) (no (unknown) (unknown) Oxygen Delivery (units (unknown) date) Method Room Air unknown) (unknown) (no (unknown) (unknown) PSYCHIATRIC: (units (u nknown) date) Endorses anxiety. unknown) (unknown) (no (unknown) (unknown) Painful menstrual (units (unknown) date) periods unknown) (unknown) (no (unknown) (unknown) Patient History (units (unknown) date) unknown) (unknown) (no (unknown) (unknown) Patient called 911 (units (unknown) date) and was instructed unknown) to come to the emergency department. (unknown) (no (unknown) (unknown) Patient is (units (unk nown) date) agreeable to unknown) inpatient treatment. (unknown) (no (unknown) (unknown) Patient is cleared (units (unknown) date) for inpatient unknown) admission. 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 (unknown) (no (unknown) (unknown) Plt Count (units (unkn own) date) (150-400) X103/uL unknown) (unknown) (no (unknown) (unknown) Plt Count 250 (units ( unknown) date) (150-400) X103/uL unknown) (unknown) (no (unknown) (unknown) Potassium (units (unkn own) date) (3.4-5.1) mmol/L unknown) (unknown) (no (unknown) (unknown) Potassium 3.4 (units ( unknown) date) (3.4-5.1) mmol/L unknown) (unknown) (no (unknown) (unknown) Test (units (unknown) date) Urine Stat unknown) (unknown) (no (unknown) (unknown) Prescriptions: (units (unknown) date) unknown) (unknown) (no (unknown) (unknown) Previous Rx's (units ( unknown) date) unknown) (unknown) (no (unknown) (unknown) Pulse Oximetry 97 (units (unknown) date) 08/10/22 15:12 unknown) (unknown) (no (unknown) (unknown) Pulse Oximetry 97 (units (unknown) date) unknown) (unknown) (no (unknown) (unknown) Pulse Rate 84 (units ( unknown) date) 08/10/22 15:12 unknown) (unknown) (no (unknown) (unknown) Pulse Rate 84 (units ( unknown) date) unknown) (unknown) (no (unknown) (unknown) RBC (4.0-5.2) (units ( unknown) date) X106/uL unknown) (unknown) (no (unknown) (unknown) RBC 4.76 (4.0-5.2) (units (unknown) date) X106/uL unknown) (unknown) (no (unknown) (unknown) RDW (11.6-14.8) % (units (unknown) date) unknown) (unknown) (no (unknown) (unknown) RDW 15.8 H (units (unk nown) date) (11.6-14.8) % unknown) (unknown) (no (unknown) (unknown) RESPIRATORY: (units (u nknown) date) Breath sounds equal unknown) and clear bilaterally. No wheezes, rales, or (unknown) (no (unknown) (unknown) RESPIRATORY: (units (u nknown) date) Denies dyspnea, unknown) cough, wheezing, sputum. (unknown) (no (unknown) (unknown) Referrals: (units (unk nown) date) unknown) (unknown) (no (unknown) (unknown) Related Data (units (u nknown) date) unknown) (unknown) (no (unknown) (unknown) Respiratory Rate (units (unknown) date) 16 08/10/22 15:12 unknown) (unknown) (no (unknown) (unknown) Respiratory Rate (units (unknown) date) 16 unknown) (unknown) (no (unknown) (unknown) Review of Systems (units (unknown) date) unknown) (unknown) (no (unknown) (unknown) Reviewed (units (unkno wn) date) unknown) (unknown) (no (unknown) (unknown) Right shoulder (units (unknown) date) pain unknown) (unknown) (no (unknown) (unknown) Rx Instructions: (units (unknown) date) unknown) (unknown) (no (unknown) (unknown) SARS-CoV-2 (PCR) (units (unknown) date) (Negative) unknown) (unknown) (no (unknown) (unknown) SARS-CoV-2 (PCR) (units (unknown) date) Negative (Negative) unknown) (unknown) (no (unknown) (unknown) SKIN: Denies rash, (units (unknown) date) skin lesions, or unknown) pruritis. (unknown) (no (unknown) (unknown) SKIN: Warm, dry, (units (unknown) date) no rashes or unknown) lesions noted. (unknown) (no (unknown) (unknown) Salicylate Stat (units (unknown) date) unknown) (unknown) (no (unknown) (unknown) Salicylates < 1.0 (units (unknown) date) (<20) mg/dL unknown) (unknown) (no (unknown) (unknown) Salicylates (<20) (units (unknown) date) mg/dL unknown) (unknown) (no (unknown) (unknown) Sciatic leg pain (units (unknown) date) unknown) (unknown) (no (unknown) (unknown) Scoliosis (-1989) (units (unknown) date) unknown) (unknown) (no (unknown) (unknown) See Rx (units (unkno wn) date) Instructions PO unknown) .COMPLEX PRN (Reason: pain) Qty: 60 3RF (unknown) (no (unknown) (unknown) Signed By: (units (unk nown) date) unknown) (unknown) (no (unknown) (unknown) Smoking Status: (units (unknown) date) Current some day unknown) smoker (unknown) (no (unknown) (unknown) Social History (units (unknown) date) (Reviewed 08/10/22 unknown) @ 17:32 by IKER Betancourt) (unknown) (no (unknown) (unknown) Sodium (137-145) (units (unknown) date) mmol/L unknown) (unknown) (no (unknown) (unknown) Sodium 141 (units (unk nown) date) (137-145) mmol/L unknown) (unknown) (no (unknown) (unknown) Stated Complaint: (units (unknown) date) mental health want unknown) to kill herself (unknown) (no (unknown) (unknown) Substance Use (units ( unknown) date) Type: marijuana unknown) (unknown) (no (unknown) (unknown) Surgical History (units (unknown) date) (Reviewed 08/10/22 unknown) @ 17:32 by IKER Betancourt) (unknown) (no (unknown) (unknown) Take 1 capsule am (units (unknown) date) and afternoon, 3 unknown) capsules (900mg) at bedtime daily (unknown) (no (unknown) (unknown) Take 1 tab (30mg) (units (unknown) date) daily for ADHD unknown) (unknown) (no (unknown) (unknown) Take 1 tab daily (units (unknown) date) (to take the place unknown) of 2-30mg tabs that insurance won't (unknown) (no (unknown) (unknown) Take 1-2 tablets (units (unknown) date) every 6-8 hours as unknown) needed for headaches (unknown) (no (unknown) (unknown) Temperature 97.7 F (units (unknown) date) 08/10/22 15:12 unknown) (unknown) (no (unknown) (unknown) Temperature 97.7 F (units (unknown) date) unknown) (unknown) (no (unknown) (unknown) Thyroid (units (unkno wn) date) Stimulating Hormone unknown) Stat (unknown) (no (unknown) (unknown) Thyroid disease (units (unknown) date) unknown) (unknown) (no (unknown) (unknown) Time Seen by (units (u nknown) date) Provider: 08/10/22 unknown) 17:14 (unknown) (no (unknown) (unknown) Total Bilirubin (units (unknown) date) (0.2-1.3) mg/dL unknown) (unknown) (no (unknown) (unknown) Total Bilirubin (units (unknown) date) 0.4 (0.2-1.3) mg/dL unknown) (unknown) (no (unknown) (unknown) Total Protein (units ( unknown) date) (6.3-8.2) g/dL unknown) (unknown) (no (unknown) (unknown) Total Protein 7.8 (units (unknown) date) (6.3-8.2) g/dL unknown) (unknown) (no (unknown) (unknown) U Benzodiazepines (units (unknown) date) Scrn (Negative) unknown) (unknown) (no (unknown) (unknown) U Benzodiazepines (units (unknown) date) Scrn Negative unknown) (Negative) (unknown) (no (unknown) (unknown) U Marijuana (THC) (units (unknown) date) Screen (Negative) unknown) (unknown) (no (unknown) (unknown) U Marijuana (THC) (units (unknown) date) Screen Positive H unknown) (Negative) (unknown) (no (unknown) (unknown) U Methamphetamines (units (unknown) date) Scrn (Negative) unknown) (unknown) (no (unknown) (unknown) U Methamphetamines (units (unknown) date) Scrn Negative unknown) (Negative) (unknown) (no (unknown) (unknown) U Opiates 300ng/mL (units (unknown) date) cut (Negative) unknown) (unknown) (no (unknown) (unknown) U Opiates 300ng/mL (units (unknown) date) cut Negative unknown) (Negative) (unknown) (no (unknown) (unknown) U Tricyclic (units (un known) date) Antidepress unknown) (Negative) (unknown) (no (unknown) (unknown) U Tricyclic (units (un known) date) Antidepress unknown) Negative (Negative) (unknown) (no (unknown) (unknown) UTI (urinary tract (units (unknown) date) infection) unknown) (unknown) (no (unknown) (unknown) Ur Amphetamines (units (unknown) date) Screen (Negative) unknown) (unknown) (no (unknown) (unknown) Ur Amphetamines (units (unknown) date) Screen Positive H unknown) (Negative) (unknown) (no (unknown) (unknown) Ur Barbiturates (units (unknown) date) Screen (Negative) unknown) (unknown) (no (unknown) (unknown) Ur Barbiturates (units (unknown) date) Screen Positive H unknown) (Negative) (unknown) (no (unknown) (unknown) Ur Culture (units (unk nown) date) Indicated? Specimen unknown) cultured (unknown) (no (unknown) (unknown) Ur Culture (units (unk nown) date) Indicated? unknown) (unknown) (no (unknown) (unknown) Ur Leukocyte (units (u nknown) date) Esterase (NEGATIVE) unknown) (unknown) (no (unknown) (unknown) Ur Leukocyte (units (u nknown) date) Esterase Negative unknown) (NEGATIVE) (unknown) (no (unknown) (unknown) Ur MDMA Scrn (units (u nknown) date) (Ecstasy) unknown) (Negative) (unknown) (no (unknown) (unknown) Ur MDMA Scrn (units (u nknown) date) (Ecstasy) Negative unknown) (Negative) (unknown) (no (unknown) (unknown) Ur Oxycodone (units (u nknown) date) Screen (Negative) unknown) (unknown) (no (unknown) (unknown) Ur Oxycodone (units (u nknown) date) Screen Negative unknown) (Negative) (unknown) (no (unknown) (unknown) Ur Phencyclidine (units (unknown) date) Scrn (Negative) unknown) (unknown) (no (unknown) (unknown) Ur Phencyclidine (units (unknown) date) Scrn Negative unknown) (Negative) (unknown) (no (unknown) (unknown) Ur Specific (units (un known) date) [place] unknown) (1.000-1.035) (unknown) (no (unknown) (unknown) Ur Specific (units (un known) date) [place] 1.010 unknown) (1.000-1.035) (unknown) (no (unknown) (unknown) Urinalysis and (units (unknown) date) Microscopic Stat unknown) (unknown) (no (unknown) (unknown) Urine Appearance (units (unknown) date) Clear unknown) (unknown) (no (unknown) (unknown) Urine Appearance (units (unknown) date) unknown) (unknown) (no (unknown) (unknown) Urine Bacteria (units (unknown) date) (None) unknown) (unknown) (no (unknown) (unknown) Urine Bacteria (units (unknown) date) Occasional (0-1) unknown) (None) (unknown) (no (unknown) (unknown) Urine Bilirubin (units (unknown) date) (NEGATIVE) unknown) (unknown) (no (unknown) (unknown) Urine Bilirubin (units (unknown) date) Negative (NEGATIVE) unknown) (unknown) (no (unknown) (unknown) Urine Cocaine (units ( unknown) date) Screen (Negative) unknown) (unknown) (no (unknown) (unknown) Urine Cocaine (units ( unknown) date) Screen Negative unknown) (Negative) (unknown) (no (unknown) (unknown) Urine Color Yellow (units (unknown) date) unknown) (unknown) (no (unknown) (unknown) Urine Color (units (un known) date) unknown) (unknown) (no (unknown) (unknown) Urine Culture Stat (units (unknown) date) unknown) (unknown) (no (unknown) (unknown) Urine Drug Screen, (units (unknown) date) Rapid Stat unknown) (unknown) (no (unknown) (unknown) Urine Glucose (UA) (units (unknown) date) (Negative) g/dL unknown) (unknown) (no (unknown) (unknown) Urine Glucose (UA) (units (unknown) date) Negative (Negative) unknown) g/dL (unknown) (no (unknown) (unknown) Urine Ketones (units ( unknown) date) (NEGATIVE) unknown) (unknown) (no (unknown) (unknown) Urine Ketones (units ( unknown) date) Negative (NEGATIVE) unknown) (unknown) (no (unknown) (unknown) Urine Methadone (units (unknown) date) Screen (Negative) unknown) (unknown) (no (unknown) (unknown) Urine Methadone (units (unknown) date) Screen Negative unknown) (Negative) (unknown) (no (unknown) (unknown) Urine Nitrate (units ( unknown) date) (Negative) unknown) (unknown) (no (unknown) (unknown) Urine Nitrate (units ( unknown) date) Negative (Negative) unknown) (unknown) (no (unknown) (unknown) Urine Occult Blood (units (unknown) date) (Negative) unknown) (unknown) (no (unknown) (unknown) Urine Occult Blood (units (unknown) date) Trace-intact unknown) (Negative) (unknown) (no (unknown) (unknown) Urine (units (unknown) date) Test (Negative) unknown) (unknown) (no (unknown) (unknown) Urine (units (unknown) date) Test Negative unknown) (Negative) (unknown) (no (unknown) (unknown) Urine Protein (units ( unknown) date) (Negative) unknown) (unknown) (no (unknown) (unknown) Urine Protein (units ( unknown) date) Negative (Negative) unknown) (unknown) (no (unknown) (unknown) Urine RBC (units (unkn own) date) (0-5/HPF) unknown) (unknown) (no (unknown) (unknown) Urine RBC 1-5/hpf (units (unknown) date) (0-5/HPF) unknown) (unknown) (no (unknown) (unknown) Urine Urobilinogen (units (unknown) date) (0.2) E.U./dL unknown) (unknown) (no (unknown) (unknown) Urine Urobilinogen (units (unknown) date) 0.2 (0.2) E.U./dL unknown) (unknown) (no (unknown) (unknown) Urine WBC (units (unkn own) date) (0-5/HPF) unknown) (unknown) (no (unknown) (unknown) Urine WBC None (units (unknown) date) seen (0-5/HPF) unknown) (unknown) (no (unknown) (unknown) Urine pH (4.5-8.0) (units (unknown) date) unknown) (unknown) (no (unknown) (unknown) Urine pH 7.0 (units (u nknown) date) (4.5-8.0) unknown) (unknown) (no (unknown) (unknown) Vaginal delivery (units (unknown) date) unknown) (unknown) (no (unknown) (unknown) Vital Signs - 8 hr (units (unknown) date) unknown) (unknown) (no (unknown) (unknown) Vital Signs (units (un known) date) unknown) (unknown) (no (unknown) (unknown) Vital signs: (units (u nknown) date) unknown) (unknown) (no (unknown) (unknown) WBC (4.5-11.0) (units (unknown) date) X103/uL unknown) (unknown) (no (unknown) (unknown) WBC 8.1 (4.5-11.0) (units (unknown) date) X103/uL unknown) (unknown) (no (unknown) (unknown) [Embedded Image (units (unknown) date) Not Available] unknown) (unknown) (no (unknown) (unknown) acetaminophen 325 (units (unknown) date) mg capsule 650 mg unknown) PO QID PRN pain #60 caps 02/28/22 (unknown) (no (unknown) (unknown) acetaminophen (units ( unknown) date) [Tylenol] 325 mg unknown) capsule (unknown) (no (unknown) (unknown) alcohol intake (units (unknown) date) frequency: unknown) holidays/special occasions only (unknown) (no (unknown) (unknown) alcohol intake: (units (unknown) date) never unknown) (unknown) (no (unknown) (unknown) amoxicillin (units (un known) date) AdvReac Diarrhea unknown) Verified 04/10/22 10:58 (unknown) (no (unknown) (unknown) amphetamine, (units (u nknown) date) barbiturates and unknown) THC. Patient has been evaluated by Michelle of [facility]. (unknown) (no (unknown) (unknown) breasts (units (unkno wn) date) unknown) (unknown) (no (unknown) (unknown) butalbital-acetami (units (unknown) date) nophen-caff unknown) 50-325-40 mg tablet (unknown) (no (unknown) (unknown) butalbital-acetami (units (unknown) date) nophen-caffeine See unknown) Rx Instructions PO .COMPLEX 08/01/22 (unknown) (no (unknown) (unknown) changes of (units (unk nown) date) unknown) (unknown) (no (unknown) (unknown) clear. No sinus (units (unknown) date) tenderness. unknown) (unknown) (no (unknown) (unknown) constipation. (units ( unknown) date) unknown) (unknown) (no (unknown) (unknown) cover). (units (unkno wn) date) unknown) (unknown) (no (unknown) (unknown) dextroamphetamine- (units (unknown) date) amphetamine 30 mg unknown) capsule,extended release 24hr (unknown) (no (unknown) (unknown) dextroamphetamine- (units (unknown) date) amphetamine ER 30 unknown) mg PO QAM #30 caps 08/01/22 (unknown) (no (unknown) (unknown) diclofenac sodium (units (unknown) date) 75 mg 75 mg PO BID unknown) PRN pain #60 tabs 05/29/22 (unknown) (no (unknown) (unknown) diclofenac sodium (units (unknown) date) 75 mg unknown) tablet,delayed release (DR/EC) (unknown) (no (unknown) (unknown) dizziness. (units (unk nown) date) unknown) (unknown) (no (unknown) (unknown) duloxetine 60 mg (units (unknown) date) capsule,delayed 60 unknown) mg PO DAILY #90 caps 07/17/22 (unknown) (no (unknown) (unknown) duloxetine 60 mg (units (unknown) date) capsule,delayed unknown) release(DR/EC) (unknown) (no (unknown) (unknown) flank pain. (units (un known) date) unknown) (unknown) (no (unknown) (unknown) gabapentin 300 mg (units (unknown) date) capsule 300 mg PO unknown) TID #450 caps 01/25/22 (unknown) (no (unknown) (unknown) gabapentin 300 mg (units (unknown) date) capsule unknown) (unknown) (no (unknown) (unknown) household members: (units (unknown) date) significant other unknown) and children (unknown) (no (unknown) (unknown) icterus, injection (units (unknown) date) or drainage. unknown) (unknown) (no (unknown) (unknown) ideation. (units (unkn own) date) Assessment was unknown) encouraging and patient is agreeable to inpatient (unknown) (no (unknown) (unknown) intact, cap refill (units (unknown) date) <2 sec. unknown) (unknown) (no (unknown) (unknown) marital status: (units (unknown) date) unmarried,living unknown) together (unknown) (no (unknown) (unknown) occupational (units (u nknown) date) status: employed unknown) (unknown) (no (unknown) (unknown) pills that include (units (unknown) date) Adderall, Fioricet, unknown) gabapentin, diclofenac and Cymbalta. (unknown) (no (unknown) (unknown) rebound. No (units (un known) date) suprapubic pain. unknown) (unknown) (no (unknown) (unknown) release (units (unkno wn) date) unknown) (unknown) (no (unknown) (unknown) rhonchi. No cough. (units (unknown) date) No increased unknown) respiratory effort. No accessory muscle use. (unknown) (no (unknown) (unknown) significant life (units (unknown) date) stressors and had a unknown) plan to kill herself by taking all of her (unknown) (no (unknown) (unknown) start after (units (un known) date) finishing unknown) ketoralac. take with food. (unknown) (no (unknown) (unknown) substance use (units ( unknown) date) type: does not use unknown) (unknown) (no (unknown) (unknown) suicidal ideation. (units (unknown) date) Patient denies any unknown) homicidal ideation. Patient has (unknown) (no (unknown) (unknown) tablet,delayed (units (unknown) date) release unknown) (unknown) (no (unknown) (unknown) tonsillar (units (unkn own) date) hypertrophy or unknown) exudate. [place] midline. Airway patent. TMs and canals (unknown) (no (unknown) (unknown) treatment. Labs (units (unknown) date) within normal unknown) limits. Urine drug screen reveals positive for (unknown) (no (unknown) (unknown) was brought to the (units (unknown) date) emergency unknown) department by family friends after admitting to Result panel 109 (unknown) (no date) (unknown) (unknown) 1.32 ng/dl (unkn own) (unknown) (no date) (unknown) (unknown) 3.02 uiu/ml (unkn own) Result panel 110 (unknown) (no (unknown) (unknown) (no value) (units (unk nown) date) unknown) (unknown) (no (unknown) (unknown) <Electronically (units (unknown) date) signed by Raúl unknownSalvador Stauffer> (unknown) (no (unknown) (unknown) (Tylenol) (units (unkn own) date) unknown) (unknown) (no (unknown) (unknown) 08/10/22 08/10/22 (units (unknown) date) 08/10/22 unknown) Range/Units (unknown) (no (unknown) (unknown) 08/10/22 15:20 (units (unknown) date) unknown) (unknown) (no (unknown) (unknown) 08/10/22 15:30 (units (unknown) date) unknown) (unknown) (no (unknown) (unknown) 08/10/22 1959 (units ( unknown) date) unknown) (unknown) (no (unknown) (unknown) 08/10/22 (units (unkno wn) date) Range/Units unknown) (unknown) (no (unknown) (unknown) 08/10/22 (units (unkno wn) date) unknown) (unknown) (no (unknown) (unknown) [id number] (units (unkno wn) date) unknown) (unknown) (no (unknown) (unknown) 15:12 (units (unkno wn) date) unknown) (unknown) (no (unknown) (unknown) 15:30 15:30 15:30 (units (unknown) date) unknown) (unknown) (no (unknown) (unknown) 15:30 (units (unkno wn) date) unknown) (unknown) (no (unknown) (unknown) 30 mg 24hr (units (unk nown) date) capsule,extend unknown) release (unknown) (no (unknown) (unknown) 30 mg PO QAM Qty: (units (unknown) date) 30 0RF unknown) (unknown) (no (unknown) (unknown) 300 mg PO TID Qty: (units (unknown) date) 450 3RF unknown) (unknown) (no (unknown) (unknown) 41-year-old female (units (unknown) date) that was brought to unknown) the emergency department for suicidal (unknown) (no (unknown) (unknown) 41-year-old (units (un known) date) female, daily unknown) smoker with history of depression and fibromyalgia, (unknown) (no (unknown) (unknown) 50 mg-325 mg-40 mg (units (unknown) date) tablet PRN pain #60 unknown) tabs (unknown) (no (unknown) (unknown) 60 mg PO DAILY (units (unknown) date) Qty: 90 3RF unknown) (unknown) (no (unknown) (unknown) 650 mg PO QID PRN (units (unknown) date) (Reason: pain) Qty: unknown) 60 0RF (unknown) (no (unknown) (unknown) 75 mg PO BID PRN (units (unknown) date) (Reason: pain) Qty: unknown) 60 1RF (unknown) (no (unknown) (unknown) ADHD (-1983) (units (u nknown) date) unknown) (unknown) (no (unknown) (unknown) ALT (<35) IU/L (units (unknown) date) unknown) (unknown) (no (unknown) (unknown) ALT 23 (<35) IU/L (units (unknown) date) unknown) (unknown) (no (unknown) (unknown) AST (14-36) IU/L (units (unknown) date) unknown) (unknown) (no (unknown) (unknown) AST 22 (14-36) (units (unknown) date) IU/L unknown) (unknown) (no (unknown) (unknown) Abnormal Pap smear (units (unknown) date) of cervix (-2018) unknown) (unknown) (no (unknown) (unknown) Acetaminophen < 10 (units (unknown) date) (10-30) ug/mL unknown) (unknown) (no (unknown) (unknown) Acetaminophen (units ( unknown) date) (10-30) ug/mL unknown) (unknown) (no (unknown) (unknown) Acetaminophen Stat (units (unknown) date) unknown) (unknown) (no (unknown) (unknown) Acetaminophen/Buta (units (unknown) date) lbital/Caffeine unknown) (Butalb/Apap/Caffei ne 50/325/40 Tablet) 2 (unknown) (no (unknown) (unknown) Age/Sex: 41 / F (units (unknown) date) unknown) (unknown) (no (unknown) (unknown) Albumin (3.5-5.0) (units (unknown) date) g/dL unknown) (unknown) (no (unknown) (unknown) Albumin 4.3 (units (un known) date) (3.5-5.0) g/dL unknown) (unknown) (no (unknown) (unknown) Albumin/Globulin (units (unknown) date) Ratio (1.0-2.8) unknown) (unknown) (no (unknown) (unknown) Albumin/Globulin (units (unknown) date) Ratio 1.2 (1.0-2.8) unknown) (unknown) (no (unknown) (unknown) Alkaline (units (unkno wn) date) Phosphatase unknown) (38-126) U/L (unknown) (no (unknown) (unknown) Alkaline (units (unkno wn) date) Phosphatase 89 unknown) (38-126) U/L (unknown) (no (unknown) (unknown) Allergies (-1988) (units (unknown) date) unknown) (unknown) (no (unknown) (unknown) Allergies (units (unkn own) date) unknown) (unknown) (no (unknown) (unknown) Allergy/AdvReac (units (unknown) date) Type Severity unknown) Reaction Status Date / Time (unknown) (no (unknown) (unknown) Amorphous Sediment (units (unknown) date) 2 unknown) (unknown) (no (unknown) (unknown) Amorphous Sediment (units (unknown) date) unknown) (unknown) (no (unknown) (unknown) Anesthesia (units (unk nown) date) unknown) (unknown) (no (unknown) (unknown) Anxiety (-2003) (units (unknown) date) unknown) (unknown) (no (unknown) (unknown) BUN (7-17) mg/dL (units (unknown) date) unknown) (unknown) (no (unknown) (unknown) BUN 9 (7-17) mg/dL (units (unknown) date) unknown) (unknown) (no (unknown) (unknown) BUN/Creatinine (units (unknown) date) Ratio (6-22) unknown) (unknown) (no (unknown) (unknown) BUN/Creatinine (units (unknown) date) Ratio 16.1 (6-22) unknown) (unknown) (no (unknown) (unknown) Back pain at L4-L5 (units (unknown) date) level (-2014) unknown) (unknown) (no (unknown) (unknown) Baso # (Auto) (units ( unknown) date) (0-100) /uL unknown) (unknown) (no (unknown) (unknown) Baso # (Auto) 100 (units (unknown) date) (0-100) /uL unknown) (unknown) (no (unknown) (unknown) Baso % (Auto) (units ( unknown) date) (0-2) % unknown) (unknown) (no (unknown) (unknown) Baso % (Auto) 1.3 (units (unknown) date) (0-2) % unknown) (unknown) (no (unknown) (unknown) Biliary colic (units ( unknown) date) unknown) (unknown) (no (unknown) (unknown) Blood Pressure (units (unknown) date) 147/94 H 08/10/22 unknown) 15:12 (unknown) (no (unknown) (unknown) Blood Pressure (units (unknown) date) 147/94 H unknown) (unknown) (no (unknown) (unknown) Mari Skinner ARNP (units (unknown) date) [Primary Care unknown) Provider] (unknown) (no (unknown) (unknown) CARDIOVASCULAR: (units (unknown) date) Denies chest pain, unknown) palpitations, edema. (unknown) (no (unknown) (unknown) CARDIOVASCULAR: (units (unknown) date) Regular rate and unknown) rhythm without murmurs, peripheral pulses (unknown) (no (unknown) (unknown) COVID19 -Nasal (units (unknown) date) RAPID/Pre-Proc Stat unknown) (unknown) (no (unknown) (unknown) Calcium (8.4-10.2) (units (unknown) date) mg/dL unknown) (unknown) (no (unknown) (unknown) Calcium 8.8 (units (un known) date) (8.4-10.2) mg/dL unknown) (unknown) (no (unknown) (unknown) Carbon Dioxide (units (unknown) date) (22-32) mmol/L unknown) (unknown) (no (unknown) (unknown) Carbon Dioxide 24 (units (unknown) date) (22-32) mmol/L unknown) (unknown) (no (unknown) (unknown) Chicken pox (units (un known) date) () unknown) (unknown) (no (unknown) (unknown) Chief Complaint: (units (unknown) date) Psychiatric unknown) Symptoms (unknown) (no (unknown) (unknown) Chloride (98-107) (units (unknown) date) mmol/L unknown) (unknown) (no (unknown) (unknown) Chloride 109 H (units (unknown) date) (98-107) mmol/L unknown) (unknown) (no (unknown) (unknown) Chronic hip pain, (units (unknown) date) bilateral unknown) (unknown) (no (unknown) (unknown) Chronic right hip (units (unknown) date) pain unknown) (unknown) (no (unknown) (unknown) Clinical (units (unkno wn) date) Impression: unknown) (unknown) (no (unknown) (unknown) Colon polyps (units (u nknown) date) () unknown) (unknown) (no (unknown) (unknown) Complete Blood (units (unknown) date) Count AUTO DIFF unknown) Stat (unknown) (no (unknown) (unknown) Comprehensive (units ( unknown) date) Metabolic Panel unknown) Stat (unknown) (no (unknown) (unknown) Consult to [employer] - (units (unknown) date) [employer] unknown) Stat (unknown) (no (unknown) (unknown) Course (units (unkno wn) date) unknown) (unknown) (no (unknown) (unknown) Creatinine (units (unk nown) date) (0.52-1.04) mg/dL unknown) (unknown) (no (unknown) (unknown) Creatinine 0.56 (units (unknown) date) (0.52-1.04) mg/dL unknown) (unknown) (no (unknown) (unknown) : 1980 (units (unknown) date) Acct:[id number] unknown) (unknown) (no (unknown) (unknown) Date of Service: (units (unknown) date) 08/10/22 unknown) (unknown) (no (unknown) (unknown) Departure (units (unkn own) date) unknown) (unknown) (no (unknown) (unknown) Depression (-2002) (units (unknown) date) unknown) (unknown) (no (unknown) (unknown) Diabetes mellitus (units (unknown) date) unknown) (unknown) (no (unknown) (unknown) Differential (units (u nknown) date) Diagnosis unknown) (unknown) (no (unknown) (unknown) Differential (units (u nknown) date) diagnosis: Likely unknown) suicidal ideation, depression and acute anxiety (unknown) (no (unknown) (unknown) Discharge Plan (units (unknown) date) unknown) (unknown) (no (unknown) (unknown) Discontinued (units (u nknown) date) Medications unknown) (unknown) (no (unknown) (unknown) Documented By: BS (units (unknown) date) unknown) (unknown) (no (unknown) (unknown) ED Orders (units (unkn own) date) unknown) (unknown) (no (unknown) (unknown) ENT: Nose without (units (unknown) date) bleeding, purulent unknown) drainage. Throat without erythema, (unknown) (no (unknown) (unknown) ER Physician: (units ( unknown) date) Raúl Stauffer unknown) (unknown) (no (unknown) (unknown) EYES: Pupils equal (units (unknown) date) round and reactive. unknown) Extraocular motions intact. No scleral (unknown) (no (unknown) (unknown) Effexor AdvReac (units (unknown) date) Mild Skin Uncoded unknown) 04/10/22 12:15 (unknown) (no (unknown) (unknown) Emergency Report (units (unknown) date) unknown) (unknown) (no (unknown) (unknown) Eos # (Auto) (units (u nknown) date) (0-450) /uL unknown) (unknown) (no (unknown) (unknown) Eos # (Auto) 200 (units (unknown) date) (0-450) /uL unknown) (unknown) (no (unknown) (unknown) Eos % (Auto) (2-4) (units (unknown) date) % unknown) (unknown) (no (unknown) (unknown) Eos % (Auto) 2.9 (units (unknown) date) (2-4) % unknown) (unknown) (no (unknown) (unknown) Estimated GFR > 60 (units (unknown) date) (>60) mL/min unknown) (unknown) (no (unknown) (unknown) Estimated GFR (units ( unknown) date) (>60) mL/min unknown) (unknown) (no (unknown) (unknown) Ethanol (ETOH) (units (unknown) date) Stat unknown) (unknown) (no (unknown) (unknown) Ethyl Alcohol < 10 (units (unknown) date) ( - 10) mg/dL unknown) (unknown) (no (unknown) (unknown) Ethyl Alcohol ( - (units (unknown) date) 10) mg/dL unknown) (unknown) (no (unknown) (unknown) Exam Narrative: (units (unknown) date) unknown) (unknown) (no (unknown) (unknown) Exam (units (unkno wn) date) unknown) (unknown) (no (unknown) (unknown) Fall (units (unkno wn) date) unknown) (unknown) (no (unknown) (unknown) Family History (units (unknown) date) (Reviewed 08/10/22 unknown) @ 17:32 by IKER Betancourt) (unknown) (no (unknown) (unknown) Father (units (unknown) date) Cancer unknown) (unknown) (no (unknown) (unknown) Fibroids (-2018) (units (unknown) date) unknown) (unknown) (no (unknown) (unknown) Fibromyalgia (units (u nknown) date) unknown) (unknown) (no (unknown) (unknown) Forgetfulness (units ( unknown) date) unknown) (unknown) (no (unknown) (unknown) Free T4 (units (unkno wn) date) (0.78-2.19) ng/dL unknown) (unknown) (no (unknown) (unknown) Free T4 1.32 (units (u nknown) date) (0.78-2.19) ng/dL unknown) (unknown) (no (unknown) (unknown) Free T4, Direct (units (unknown) date) Thyroxine Stat unknown) (unknown) (no (unknown) (unknown) GASTROINTESTINAL: (units (unknown) date) Abdomen soft, unknown) non-tender, nondistended without guarding or (unknown) (no (unknown) (unknown) GASTROINTESTINAL: (units (unknown) date) Denies nausea, unknown) vomiting, abdominal pain, diarrhea, (unknown) (no (unknown) (unknown) GENERAL: Denies (units (unknown) date) chills, fatigue, unknown) fever, sweats. (unknown) (no (unknown) (unknown) GENERAL: This is a (units (unknown) date) well-nourished, unknown) well-developed patient, in no acute distress. (unknown) (no (unknown) (unknown) : Denies (units (unk nown) date) dysuria, frequency, unknown) incontinence, hematuria, urinary retention, (unknown) (no (unknown) (unknown) Gabapentin (units (unk n) date) (Gabapentin 300 Mg unknown) Capsule) 300 mg PO NOW ONE (unknown) (no (unknown) (unknown) Gabapentin Stat (units (unknown) date) unknown) (unknown) (no (unknown) (unknown) General (units (unkno wn) date) unknown) (unknown) (no (unknown) (unknown) Globulin (1.7-4.1) (units (unknown) date) g/dL unknown) (unknown) (no (unknown) (unknown) Globulin 3.5 (units (u nknown) date) (1.7-4.1) g/dL unknown) (unknown) (no (unknown) (unknown) Glucose (70-100) (units (unknown) date) mg/dL unknown) (unknown) (no (unknown) (unknown) Glucose 94 (units (unk nown) date) (70-100) mg/dL unknown) (unknown) (no (unknown) (unknown) Grandfather Lung (units (unknown) date) cancer unknown) (unknown) (no (unknown) (unknown) Grandmother (units (un known) date) Cancer unknown) (unknown) (no (unknown) (unknown) HEAD: Atraumatic. (units (unknown) date) Normocephalic. unknown) (unknown) (no (unknown) (unknown) HEENT: Denies (units ( unknown) date) sinus pain, ear unknown) pain, sore throat, difficulty swallowing, (unknown) (no (unknown) (unknown) HPI - Psych (units (un known) date) unknown) (unknown) (no (unknown) (unknown) HPI Narrative: (units (unknown) date) unknown) (unknown) (no (unknown) (unknown) Hct (36-46) % (units ( unknown) date) unknown) (unknown) (no (unknown) (unknown) Hct 39.1 (36-46) % (units (unknown) date) unknown) (unknown) (no (unknown) (unknown) Heavy menstrual (units (unknown) date) period unknown) (unknown) (no (unknown) (unknown) Hgb (12.0-16.0) (units (unknown) date) g/dL unknown) (unknown) (no (unknown) (unknown) Hgb 13.2 (units (unkno wn) date) (12.0-16.0) g/dL unknown) (unknown) (no (unknown) (unknown) History of Present (units (unknown) date) Illness unknown) (unknown) (no (unknown) (unknown) History of bipolar (units (unknown) date) disorder unknown) (unknown) (no (unknown) (unknown) History of heart (units (unknown) date) disease unknown) (unknown) (no (unknown) (unknown) History of (units (unk nown) date) placement of ear unknown) tubes (02/08/86) (unknown) (no (unknown) (unknown) History of (units (unk nown) date) recurrent ear unknown) infection (unknown) (no (unknown) (unknown) Home Medications (units (unknown) date) unknown) (unknown) (no (unknown) (unknown) Hypertension (units (u nknown) date) unknown) (unknown) (no (unknown) (unknown) Initial Vital (units ( unknown) date) Signs unknown) (unknown) (no (unknown) (unknown) Initial Vital (units ( unknown) date) Signs: unknown) (unknown) (no (unknown) (unknown) [facility] (units (unknown) date) [address] unknown) [place] [address] (unknown) (no (unknown) (unknown) Lab Data (units (unkno wn) date) unknown) (unknown) (no (unknown) (unknown) Lab Results (units (un known) date) unknown) (unknown) (no (unknown) (unknown) Labs: (units (unkno wn) date) unknown) (unknown) (no (unknown) (unknown) Last Admin: (units (un known) date) 08/10/22 19:08 unknown) Dose: 2 each (unknown) (no (unknown) (unknown) Last Admin: (units (un known) date) 08/10/22 19:10 unknown) Dose: 300 mg (unknown) (no (unknown) (unknown) Last Admin: (units (un known) date) 08/10/22 19:10 unknown) Dose: Not Given (unknown) (no (unknown) (unknown) Left shoulder pain (units (unknown) date) unknown) (unknown) (no (unknown) (unknown) Liver cancer (units (u nknown) date) unknown) (unknown) (no (unknown) (unknown) Lymph # (Auto) (units (unknown) date) (3479-6433) /uL unknown) (unknown) (no (unknown) (unknown) Lymph # (Auto) (units (unknown) date) 2800 (7249-1502) unknown) /uL (unknown) (no (unknown) (unknown) Lymph % (Auto) (units (unknown) date) (25-40) % unknown) (unknown) (no (unknown) (unknown) Lymph % (Auto) (units (unknown) date) 34.5 (25-40) % unknown) (unknown) (no (unknown) (unknown) MCH (26-34) PG (units (unknown) date) unknown) (unknown) (no (unknown) (unknown) MCH 27.6 (26-34) (units (unknown) date) PG unknown) (unknown) (no (unknown) (unknown) MCHC (30-36) % (units (unknown) date) unknown) (unknown) (no (unknown) (unknown) MCHC 33.7 (30-36) (units (unknown) date) % unknown) (unknown) (no (unknown) (unknown) MCV (80-100) fL (units (unknown) date) unknown) (unknown) (no (unknown) (unknown) MCV 82.1 (80-100) (units (unknown) date) fL unknown) (unknown) (no (unknown) (unknown) MDM - Psych (units (un known) date) unknown) (unknown) (no (unknown) (unknown) MDM Narrative (units ( unknown) date) unknown) (unknown) (no (unknown) (unknown) MSK: Denies (units (un known) date) weakness, joint unknown) pain, or bony pain. (unknown) (no (unknown) (unknown) MSK: Moves all (units (unknown) date) extremities. Normal unknown) range of motion, no clubbing or edema. (unknown) (no (unknown) (unknown) Medical History (units (unknown) date) (Reviewed 08/10/22 unknown) @ 17:32 by IKER Betancourt) (unknown) (no (unknown) (unknown) Medical decision (units (unknown) date) making narrative: unknown) (unknown) (no (unknown) (unknown) Medication (units (unk nown) date) Instructions unknown) Recorded Confirmed (unknown) (no (unknown) (unknown) Medication (units (unk nown) date) Instructions unknown) Recorded (unknown) (no (unknown) (unknown) Mental health (units ( unknown) date) problem unknown) (unknown) (no (unknown) (unknown) Migraines (-1994) (units (unknown) date) unknown) (unknown) (no (unknown) (unknown) Sully # (Auto) (units ( unknown) date) (0-900) /uL unknown) (unknown) (no (unknown) (unknown) Sully # (Auto) 500 (units (unknown) date) (0-900) /uL unknown) (unknown) (no (unknown) (unknown) Sully % (Auto) (units ( unknown) date) (3-14) % unknown) (unknown) (no (unknown) (unknown) Sully % (Auto) 6.0 (units (unknown) date) (3-14) % unknown) (unknown) (no (unknown) (unknown) Mother (units (unknown) date) Hyperlipidemia unknown) (unknown) (no (unknown) (unknown) Multi Vitamin (units ( unknown) date) 11/04/17 08/01/22 unknown) (unknown) (no (unknown) (unknown) Multi Vitamin (units ( unknown) date) unknown) (unknown) (no (unknown) (unknown) NECK: Trachea (units ( unknown) date) midline. No JVD or unknown) lymphadenopathy. Nontender. (unknown) (no (unknown) (unknown) NEURO: A+O x 3. (units (unknown) date) unknown) (unknown) (no (unknown) (unknown) NEUROLOGIC: Denies (units (unknown) date) weakness, unknown) dizziness, headache, numbness, confusion. (unknown) (no (unknown) (unknown) Narrative (units (unkn own) date) unknown) (unknown) (no (unknown) (unknown) Narrative: See (units (unknown) date) HPI. unknown) (unknown) (no (unknown) (unknown) Narrative: (units (unk nown) date) unknown) (unknown) (no (unknown) (unknown) Neurovascularly (units (unknown) date) intact. unknown) (unknown) (no (unknown) (unknown) Neut # (Auto) (units ( unknown) date) (1445-4065) /uL unknown) (unknown) (no (unknown) (unknown) Neut # (Auto) 4500 (units (unknown) date) (3644-3758) /uL unknown) (unknown) (no (unknown) (unknown) Neut % (Auto) (units ( unknown) date) (50-75) % unknown) (unknown) (no (unknown) (unknown) Neut % (Auto) 55.3 (units (unknown) date) (50-75) % unknown) (unknown) (no (unknown) (unknown) No Action (units (unkn own) date) unknown) (unknown) (no (unknown) (unknown) Non-healing wound (units (unknown) date) unknown) (unknown) (no (unknown) (unknown) Not currently (units ( unknown) date) unknown) (unknown) (no (unknown) (unknown) Ordered: (units (unkno wn) date) unknown) (unknown) (no (unknown) (unknown) Orders (units (unkno wn) date) unknown) (unknown) (no (unknown) (unknown) Oxygen Delivery (units (unknown) date) Method Room Air unknown) 08/10/22 15:12 (unknown) (no (unknown) (unknown) Oxygen Delivery (units (unknown) date) Method Room Air unknown) (unknown) (no (unknown) (unknown) PSYCHIATRIC: (units (u nknown) date) Endorses anxiety. unknown) (unknown) (no (unknown) (unknown) Painful menstrual (units (unknown) date) periods unknown) (unknown) (no (unknown) (unknown) Patient (units (unkno wn) date) Disposition: [facility]fer [facility] (no (unknown) (unknown) Patient History (units (unknown) date) unknown) (unknown) (no (unknown) (unknown) Patient called 911 (units (unknown) date) and was instructed unknown) to come to the emergency department. (unknown) (no (unknown) (unknown) Patient is (units (unk nown) date) agreeable to unknown) inpatient treatment. (unknown) (no (unknown) (unknown) Patient is cleared (units (unknown) date) for inpatient unknown) admission. 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 (unknown) (no (unknown) (unknown) Plt Count (units (unkn own) date) (150-400) X103/uL unknown) (unknown) (no (unknown) (unknown) Plt Count 250 (units ( unknown) date) (150-400) X103/uL unknown) (unknown) (no (unknown) (unknown) Potassium (units (unkn own) date) (3.4-5.1) mmol/L unknown) (unknown) (no (unknown) (unknown) Potassium 3.4 (units ( unknown) date) (3.4-5.1) mmol/L unknown) (unknown) (no (unknown) (unknown) Test (units (unknown) date) Urine Stat unknown) (unknown) (no (unknown) (unknown) Prescriptions: (units (unknown) date) unknown) (unknown) (no (unknown) (unknown) Previous Rx's (units ( unknown) date) unknown) (unknown) (no (unknown) (unknown) Pulse Oximetry 97 (units (unknown) date) 08/10/22 15:12 unknown) (unknown) (no (unknown) (unknown) Pulse Oximetry 97 (units (unknown) date) unknown) (unknown) (no (unknown) (unknown) Pulse Rate 84 (units ( unknown) date) 08/10/22 15:12 unknown) (unknown) (no (unknown) (unknown) Pulse Rate 84 (units ( unknown) date) unknown) (unknown) (no (unknown) (unknown) RBC (4.0-5.2) (units ( unknown) date) X106/uL unknown) (unknown) (no (unknown) (unknown) RBC 4.76 (4.0-5.2) (units (unknown) date) X106/uL unknown) (unknown) (no (unknown) (unknown) RDW (11.6-14.8) % (units (unknown) date) unknown) (unknown) (no (unknown) (unknown) RDW 15.8 H (units (unk nown) date) (11.6-14.8) % unknown) (unknown) (no (unknown) (unknown) RESPIRATORY: (units (u nknown) date) Breath sounds equal unknown) and clear bilaterally. No wheezes, rales, or (unknown) (no (unknown) (unknown) RESPIRATORY: (units (u nknown) date) Denies dyspnea, unknown) cough, wheezing, sputum. (unknown) (no (unknown) (unknown) Referrals: (units (unk nown) date) unknown) (unknown) (no (unknown) (unknown) Related Data (units (u nknown) date) unknown) (unknown) (no (unknown) (unknown) Respiratory Rate (units (unknown) date) 16 08/10/22 15:12 unknown) (unknown) (no (unknown) (unknown) Respiratory Rate (units (unknown) date) 16 unknown) (unknown) (no (unknown) (unknown) Review of Systems (units (unknown) date) unknown) (unknown) (no (unknown) (unknown) Reviewed (units (unkno wn) date) unknown) (unknown) (no (unknown) (unknown) Right shoulder (units (unknown) date) pain unknown) (unknown) (no (unknown) (unknown) Rx Instructions: (units (unknown) date) unknown) (unknown) (no (unknown) (unknown) SARS-CoV-2 (PCR) (units (unknown) date) (Negative) unknown) (unknown) (no (unknown) (unknown) SARS-CoV-2 (PCR) (units (unknown) date) Negative (Negative) unknown) (unknown) (no (unknown) (unknown) SKIN: Denies rash, (units (unknown) date) skin lesions, or unknown) pruritis. (unknown) (no (unknown) (unknown) SKIN: Warm, dry, (units (unknown) date) no rashes or unknown) lesions noted. (unknown) (no (unknown) (unknown) Salicylate Stat (units (unknown) date) unknown) (unknown) (no (unknown) (unknown) Salicylates < 1.0 (units (unknown) date) (<20) mg/dL unknown) (unknown) (no (unknown) (unknown) Salicylates (<20) (units (unknown) date) mg/dL unknown) (unknown) (no (unknown) (unknown) Sciatic leg pain (units (unknown) date) unknown) (unknown) (no (unknown) (unknown) Scoliosis (-1989) (units (unknown) date) unknown) (unknown) (no (unknown) (unknown) See Rx (units (unkno wn) date) Instructions PO unknown) .COMPLEX PRN (Reason: pain) Qty: 60 3RF (unknown) (no (unknown) (unknown) Signed By: (units (unk nown) date) unknown) (unknown) (no (unknown) (unknown) Smoking Status: (units (unknown) date) Current some day unknown) smoker (unknown) (no (unknown) (unknown) Social History (units (unknown) date) (Reviewed 08/10/22 unknown) @ 17:32 by IKER Betancourt) (unknown) (no (unknown) (unknown) Sodium (137-145) (units (unknown) date) mmol/L unknown) (unknown) (no (unknown) (unknown) Sodium 141 (units (unk nown) date) (137-145) mmol/L unknown) (unknown) (no (unknown) (unknown) Stated Complaint: (units (unknown) date) mental health want unknown) to kill herself (unknown) (no (unknown) (unknown) Stop: 08/10/22 (units (unknown) date) 18:34 unknown) (unknown) (no (unknown) (unknown) Stop: 08/10/22 (units (unknown) date) 19:05 unknown) (unknown) (no (unknown) (unknown) Substance Use (units ( unknown) date) Type: marijuana unknown) (unknown) (no (unknown) (unknown) Suicidal ideation (units (unknown) date) unknown) (unknown) (no (unknown) (unknown) Surgical History (units (unknown) date) (Reviewed 08/10/22 unknown) @ 17:32 by IKER Betancourt) (unknown) (no (unknown) (unknown) TSH (0.47-4.68) (units (unknown) date) uIU/mL unknown) (unknown) (no (unknown) (unknown) TSH 3.02 (units (unkno wn) date) (0.47-4.68) uIU/mL unknown) (unknown) (no (unknown) (unknown) Take 1 capsule am (units (unknown) date) and afternoon, 3 unknown) capsules (900mg) at bedtime daily (unknown) (no (unknown) (unknown) Take 1 tab (30mg) (units (unknown) date) daily for ADHD unknown) (unknown) (no (unknown) (unknown) Take 1 tab daily (units (unknown) date) (to take the place unknown) of 2-30mg tabs that insurance won't (unknown) (no (unknown) (unknown) Take 1-2 tablets (units (unknown) date) every 6-8 hours as unknown) needed for headaches (unknown) (no (unknown) (unknown) Temperature 97.7 F (units (unknown) date) 08/10/22 15:12 unknown) (unknown) (no (unknown) (unknown) Temperature 97.7 F (units (unknown) date) unknown) (unknown) (no (unknown) (unknown) Thyroid (units (unkno wn) date) Stimulating Hormone unknown) Stat (unknown) (no (unknown) (unknown) Thyroid disease (units (unknown) date) unknown) (unknown) (no (unknown) (unknown) Time Seen by (units (u nknown) date) Provider: 08/10/22 unknown) 17:14 (unknown) (no (unknown) (unknown) Total Bilirubin (units (unknown) date) (0.2-1.3) mg/dL unknown) (unknown) (no (unknown) (unknown) Total Bilirubin (units (unknown) date) 0.4 (0.2-1.3) mg/dL unknown) (unknown) (no (unknown) (unknown) Total Protein (units ( unknown) date) (6.3-8.2) g/dL unknown) (unknown) (no (unknown) (unknown) Total Protein 7.8 (units (unknown) date) (6.3-8.2) g/dL unknown) (unknown) (no (unknown) (unknown) U Benzodiazepines (units (unknown) date) Scrn (Negative) unknown) (unknown) (no (unknown) (unknown) U Benzodiazepines (units (unknown) date) Scrn Negative unknown) (Negative) (unknown) (no (unknown) (unknown) U Marijuana (THC) (units (unknown) date) Screen (Negative) unknown) (unknown) (no (unknown) (unknown) U Marijuana (THC) (units (unknown) date) Screen Positive H unknown) (Negative) (unknown) (no (unknown) (unknown) U Methamphetamines (units (unknown) date) Scrn (Negative) unknown) (unknown) (no (unknown) (unknown) U Methamphetamines (units (unknown) date) Scrn Negative unknown) (Negative) (unknown) (no (unknown) (unknown) U Opiates 300ng/mL (units (unknown) date) cut (Negative) unknown) (unknown) (no (unknown) (unknown) U Opiates 300ng/mL (units (unknown) date) cut Negative unknown) (Negative) (unknown) (no (unknown) (unknown) U Tricyclic (units (un known) date) Antidepress unknown) (Negative) (unknown) (no (unknown) (unknown) U Tricyclic (units (un known) date) Antidepress unknown) Negative (Negative) (unknown) (no (unknown) (unknown) UTI (urinary tract (units (unknown) date) infection) unknown) (unknown) (no (unknown) (unknown) Ur Amphetamines (units (unknown) date) Screen (Negative) unknown) (unknown) (no (unknown) (unknown) Ur Amphetamines (units (unknown) date) Screen Positive H unknown) (Negative) (unknown) (no (unknown) (unknown) Ur Barbiturates (units (unknown) date) Screen (Negative) unknown) (unknown) (no (unknown) (unknown) Ur Barbiturates (units (unknown) date) Screen Positive H unknown) (Negative) (unknown) (no (unknown) (unknown) Ur Culture (units (unk nown) date) Indicated? Specimen unknown) cultured (unknown) (no (unknown) (unknown) Ur Culture (units (unk nown) date) Indicated? unknown) (unknown) (no (unknown) (unknown) Ur Leukocyte (units (u nknown) date) Esterase (NEGATIVE) unknown) (unknown) (no (unknown) (unknown) Ur Leukocyte (units (u nknown) date) Esterase Negative unknown) (NEGATIVE) (unknown) (no (unknown) (unknown) Ur MDMA Scrn (units (u nknown) date) (Ecstasy) unknown) (Negative) (unknown) (no (unknown) (unknown) Ur MDMA Scrn (units (u nknown) date) (Ecstasy) Negative unknown) (Negative) (unknown) (no (unknown) (unknown) Ur Oxycodone (units (u nknown) date) Screen (Negative) unknown) (unknown) (no (unknown) (unknown) Ur Oxycodone (units (u nknown) date) Screen Negative unknown) (Negative) (unknown) (no (unknown) (unknown) Ur Phencyclidine (units (unknown) date) Scrn (Negative) unknown) (unknown) (no (unknown) (unknown) Ur Phencyclidine (units (unknown) date) Scrn Negative unknown) (Negative) (unknown) (no (unknown) (unknown) Ur Specific (units (un known) date) [place] unknown) (1.000-1.035) (unknown) (no (unknown) (unknown) Ur Specific (units (un known) date) [place] 1.010 unknown) (1.000-1.035) (unknown) (no (unknown) (unknown) Urinalysis and (units (unknown) date) Microscopic Stat unknown) (unknown) (no (unknown) (unknown) Urine Appearance (units (unknown) date) Clear unknown) (unknown) (no (unknown) (unknown) Urine Appearance (units (unknown) date) unknown) (unknown) (no (unknown) (unknown) Urine Bacteria (units (unknown) date) (None) unknown) (unknown) (no (unknown) (unknown) Urine Bacteria (units (unknown) date) Occasional (0-1) unknown) (None) (unknown) (no (unknown) (unknown) Urine Bilirubin (units (unknown) date) (NEGATIVE) unknown) (unknown) (no (unknown) (unknown) Urine Bilirubin (units (unknown) date) Negative (NEGATIVE) unknown) (unknown) (no (unknown) (unknown) Urine Cocaine (units ( unknown) date) Screen (Negative) unknown) (unknown) (no (unknown) (unknown) Urine Cocaine (units ( unknown) date) Screen Negative unknown) (Negative) (unknown) (no (unknown) (unknown) Urine Color Yellow (units (unknown) date) unknown) (unknown) (no (unknown) (unknown) Urine Color (units (un known) date) unknown) (unknown) (no (unknown) (unknown) Urine Culture Stat (units (unknown) date) unknown) (unknown) (no (unknown) (unknown) Urine Drug Screen, (units (unknown) date) Rapid Stat unknown) (unknown) (no (unknown) (unknown) Urine Glucose (UA) (units (unknown) date) (Negative) g/dL unknown) (unknown) (no (unknown) (unknown) Urine Glucose (UA) (units (unknown) date) Negative (Negative) unknown) g/dL (unknown) (no (unknown) (unknown) Urine Ketones (units ( unknown) date) (NEGATIVE) unknown) (unknown) (no (unknown) (unknown) Urine Ketones (units ( unknown) date) Negative (NEGATIVE) unknown) (unknown) (no (unknown) (unknown) Urine Methadone (units (unknown) date) Screen (Negative) unknown) (unknown) (no (unknown) (unknown) Urine Methadone (units (unknown) date) Screen Negative unknown) (Negative) (unknown) (no (unknown) (unknown) Urine Nitrate (units ( unknown) date) (Negative) unknown) (unknown) (no (unknown) (unknown) Urine Nitrate (units ( unknown) date) Negative (Negative) unknown) (unknown) (no (unknown) (unknown) Urine Occult Blood (units (unknown) date) (Negative) unknown) (unknown) (no (unknown) (unknown) Urine Occult Blood (units (unknown) date) Trace-intact unknown) (Negative) (unknown) (no (unknown) (unknown) Urine (units (unknown) date) Test (Negative) unknown) (unknown) (no (unknown) (unknown) Urine (units (unknown) date) Test Negative unknown) (Negative) (unknown) (no (unknown) (unknown) Urine Protein (units ( unknown) date) (Negative) unknown) (unknown) (no (unknown) (unknown) Urine Protein (units ( unknown) date) Negative (Negative) unknown) (unknown) (no (unknown) (unknown) Urine RBC (units (unkn own) date) (0-5/HPF) unknown) (unknown) (no (unknown) (unknown) Urine RBC 1-5/hpf (units (unknown) date) (0-5/HPF) unknown) (unknown) (no (unknown) (unknown) Urine Urobilinogen (units (unknown) date) (0.2) E.U./dL unknown) (unknown) (no (unknown) (unknown) Urine Urobilinogen (units (unknown) date) 0.2 (0.2) E.U./dL unknown) (unknown) (no (unknown) (unknown) Urine WBC (units (unkn own) date) (0-5/HPF) unknown) (unknown) (no (unknown) (unknown) Urine WBC None (units (unknown) date) seen (0-5/HPF) unknown) (unknown) (no (unknown) (unknown) Urine pH (4.5-8.0) (units (unknown) date) unknown) (unknown) (no (unknown) (unknown) Urine pH 7.0 (units (u nknown) date) (4.5-8.0) unknown) (unknown) (no (unknown) (unknown) Vaginal delivery (units (unknown) date) unknown) (unknown) (no (unknown) (unknown) Vital Signs - 8 hr (units (unknown) date) unknown) (unknown) (no (unknown) (unknown) Vital Signs (units (un known) date) unknown) (unknown) (no (unknown) (unknown) Vital signs: (units (u nknown) date) unknown) (unknown) (no (unknown) (unknown) WBC (4.5-11.0) (units (unknown) date) X103/uL unknown) (unknown) (no (unknown) (unknown) WBC 8.1 (4.5-11.0) (units (unknown) date) X103/uL unknown) (unknown) (no (unknown) (unknown) [Embedded Image (units (unknown) date) Not Available] unknown) (unknown) (no (unknown) (unknown) acetaminophen 325 (units (unknown) date) mg capsule 650 mg unknown) PO QID PRN pain #60 caps 02/28/22 (unknown) (no (unknown) (unknown) acetaminophen (units ( unknown) date) [Tylenol] 325 mg unknown) capsule (unknown) (no (unknown) (unknown) alcohol intake (units (unknown) date) frequency: unknown) holidays/special occasions only (unknown) (no (unknown) (unknown) alcohol intake: (units (unknown) date) never unknown) (unknown) (no (unknown) (unknown) amoxicillin (units (un known) date) AdvReac Diarrhea unknown) Verified 04/10/22 10:58 (unknown) (no (unknown) (unknown) amphetamine, (units (u nknown) date) barbiturates and unknown) THC. Patient has been evaluated by Michelle of [facility]. (unknown) (no (unknown) (unknown) breasts (units (unkno wn) date) unknown) (unknown) (no (unknown) (unknown) butalbital-acetami (units (unknown) date) nophen-caff unknown) 50-325-40 mg tablet (unknown) (no (unknown) (unknown) butalbital-acetami (units (unknown) date) nophen-caffeine See unknown) Rx Instructions PO .COMPLEX 08/01/22 (unknown) (no (unknown) (unknown) changes of (units (unk nown) date) unknown) (unknown) (no (unknown) (unknown) clear. No sinus (units (unknown) date) tenderness. unknown) (unknown) (no (unknown) (unknown) constipation. (units ( unknown) date) unknown) (unknown) (no (unknown) (unknown) cover). (units (unkno wn) date) unknown) (unknown) (no (unknown) (unknown) dextroamphetamine- (units (unknown) date) amphetamine 30 mg unknown) capsule,extended release 24hr (unknown) (no (unknown) (unknown) dextroamphetamine- (units (unknown) date) amphetamine ER 30 unknown) mg PO QAM #30 caps 08/01/22 (unknown) (no (unknown) (unknown) diclofenac sodium (units (unknown) date) 75 mg 75 mg PO BID unknown) PRN pain #60 tabs 05/29/22 (unknown) (no (unknown) (unknown) diclofenac sodium (units (unknown) date) 75 mg unknown) tablet,delayed release (DR/EC) (unknown) (no (unknown) (unknown) dizziness. (units (unk nown) date) unknown) (unknown) (no (unknown) (unknown) duloxetine 60 mg (units (unknown) date) capsule,delayed 60 unknown) mg PO DAILY #90 caps 07/17/22 (unknown) (no (unknown) (unknown) duloxetine 60 mg (units (unknown) date) capsule,delayed unknown) release(DR/EC) (unknown) (no (unknown) (unknown) each PO NOW ONE (units (unknown) date) unknown) (unknown) (no (unknown) (unknown) flank pain. (units (un known) date) unknown) (unknown) (no (unknown) (unknown) gabapentin 300 mg (units (unknown) date) capsule 300 mg PO unknown) TID #450 caps 01/25/22 (unknown) (no (unknown) (unknown) gabapentin 300 mg (units (unknown) date) capsule unknown) (unknown) (no (unknown) (unknown) household members: (units (unknown) date) significant other unknown) and children (unknown) (no (unknown) (unknown) icterus, injection (units (unknown) date) or drainage. unknown) (unknown) (no (unknown) (unknown) ideation. (units (unkn own) date) Assessment was unknown) encouraging and patient is agreeable to inpatient (unknown) (no (unknown) (unknown) intact, cap refill (units (unknown) date) <2 sec. unknown) (unknown) (no (unknown) (unknown) marital status: (units (unknown) date) unmarried,living unknown) together (unknown) (no (unknown) (unknown) occupational (units (u nknown) date) status: employed unknown) (unknown) (no (unknown) (unknown) pills that include (units (unknown) date) Adderall, Fioricet, unknown) gabapentin, diclofenac and Cymbalta. (unknown) (no (unknown) (unknown) rebound. No (units (un known) date) suprapubic pain. unknown) (unknown) (no (unknown) (unknown) release (units (unkno wn) date) unknown) (unknown) (no (unknown) (unknown) rhonchi. No cough. (units (unknown) date) No increased unknown) respiratory effort. No accessory muscle use. (unknown) (no (unknown) (unknown) significant life (units (unknown) date) stressors and had a unknown) plan to kill herself by taking all of her (unknown) (no (unknown) (unknown) start after (units (un known) date) finishing unknown) ketoralac. take with food. (unknown) (no (unknown) (unknown) substance use (units ( unknown) date) type: does not use unknown) (unknown) (no (unknown) (unknown) suicidal ideation. (units (unknown) date) Patient denies any unknown) homicidal ideation. Patient has (unknown) (no (unknown) (unknown) tablet,delayed (units (unknown) date) release unknown) (unknown) (no (unknown) (unknown) tonsillar (units (unkn own) date) hypertrophy or unknown) exudate. [place] midline. Airway patent. TMs and canals (unknown) (no (unknown) (unknown) treatment. Labs (units (unknown) date) within normal unknown) limits. Urine drug screen reveals positive for (unknown) (no (unknown) (unknown) was brought to the (units (unknown) date) emergency unknown) department by family friends after admitting to Result panel 111 (unknown) (no date) (unknown) (unknown) No growth. (units (un known) unknown) Result panel 112 (unknown) (no (unknown) (unknown) (no value) (units (unk nown) date) unknown) (unknown) (no (unknown) (unknown) <Electronically (units (unknown) date) signed by Sybil xavier) Unique D.O.> (unknown) (no (unknown) (unknown) <Electronically (units (unknown) date) signed by Sybil xavier) Unique D.O.> (unknown) (no (unknown) (unknown) <Electronically (units (unknown) date) signed by Raúl xavier) IKER Stauffer> (unknown) (no (unknown) (unknown) <Sybil Calhoun, (units (unknown) date) DO - Last Filed: unknown) 08/11/22 13:19> (unknown) (no (unknown) (unknown) <Raúl Stauffer, (units (unknown) date) ACCOUNT REVIEW SPECIALIST - Last Filed: unknown) 08/10/22 19:59> (unknown) (no (unknown) (unknown) <cosigner> (units (unk nown) date) unknown) (unknown) (no (unknown) (unknown) (Tylenol) (units (unkn own) date) unknown) (unknown) (no (unknown) (unknown) 08/10/22 08/10/22 (units (unknown) date) 08/10/22 unknown) Range/Units (unknown) (no (unknown) (unknown) 08/10/22 15:30 (units (unknown) date) unknown) (unknown) (no (unknown) (unknown) 08/10/22 1959 (units ( unknown) date) unknown) (unknown) (no (unknown) (unknown) 08/10/22 (units (unkno wn) date) Range/Units unknown) (unknown) (no (unknown) (unknown) 08/10/22 (units (unkno wn) date) unknown) (unknown) (no (unknown) (unknown) 08/11/22 1319 (units ( unknown) date) unknown) (unknown) (no (unknown) (unknown) [id number] (units (unkno wn) date) unknown) (unknown) (no (unknown) (unknown) 15:12 (units (unkno wn) date) unknown) (unknown) (no (unknown) (unknown) 15:30 15:30 15:30 (units (unknown) date) unknown) (unknown) (no (unknown) (unknown) 15:30 (units (unkno wn) date) unknown) (unknown) (no (unknown) (unknown) 30 mg 24hr (units (unk nown) date) capsule,extend unknown) release (unknown) (no (unknown) (unknown) 30 mg PO QAM Qty: (units (unknown) date) 30 0RF unknown) (unknown) (no (unknown) (unknown) 300 mg PO TID Qty: (units (unknown) date) 450 3RF unknown) (unknown) (no (unknown) (unknown) 41-year-old female (units (unknown) date) that was brought to unknown) the emergency department for suicidal (unknown) (no (unknown) (unknown) 41-year-old (units (un known) date) female, daily unknown) smoker with history of depression and fibromyalgia, (unknown) (no (unknown) (unknown) 50 mg-325 mg-40 mg (units (unknown) date) tablet PRN pain #60 unknown) tabs (unknown) (no (unknown) (unknown) 60 mg PO DAILY (units (unknown) date) Qty: 90 3RF unknown) (unknown) (no (unknown) (unknown) 650 mg PO QID PRN (units (unknown) date) (Reason: pain) Qty: unknown) 60 0RF (unknown) (no (unknown) (unknown) 75 mg PO BID PRN (units (unknown) date) (Reason: pain) Qty: unknown) 60 1RF (unknown) (no (unknown) (unknown) ADHD (-1982) (units (u nknown) date) unknown) (unknown) (no (unknown) (unknown) ALT (<35) IU/L (units (unknown) date) unknown) (unknown) (no (unknown) (unknown) ALT 23 (<35) IU/L (units (unknown) date) unknown) (unknown) (no (unknown) (unknown) AST (14-36) IU/L (units (unknown) date) unknown) (unknown) (no (unknown) (unknown) AST 22 (14-36) (units (unknown) date) IU/L unknown) (unknown) (no (unknown) (unknown) Abnormal Pap smear (units (unknown) date) of cervix (-2017) unknown) (unknown) (no (unknown) (unknown) Acetaminophen < 10 (units (unknown) date) (10-30) ug/mL unknown) (unknown) (no (unknown) (unknown) Acetaminophen (units ( unknown) date) (10-30) ug/mL unknown) (unknown) (no (unknown) (unknown) Acetaminophen/Buta (units (unknown) date) lbital/Caffeine unknown) (Butalb/Apap/Caffei ne 50/325/40 Tablet) 2 (unknown) (no (unknown) (unknown) Age/Sex: 41 / F (units (unknown) date) unknown) (unknown) (no (unknown) (unknown) Albumin (3.5-5.0) (units (unknown) date) g/dL unknown) (unknown) (no (unknown) (unknown) Albumin 4.3 (units (un known) date) (3.5-5.0) g/dL unknown) (unknown) (no (unknown) (unknown) Albumin/Globulin (units (unknown) date) Ratio (1.0-2.8) unknown) (unknown) (no (unknown) (unknown) Albumin/Globulin (units (unknown) date) Ratio 1.2 (1.0-2.8) unknown) (unknown) (no (unknown) (unknown) Alkaline (units (unkno wn) date) Phosphatase unknown) (38-126) U/L (unknown) (no (unknown) (unknown) Alkaline (units (unkno wn) date) Phosphatase 89 unknown) (38-126) U/L (unknown) (no (unknown) (unknown) Allergies (-1988) (units (unknown) date) unknown) (unknown) (no (unknown) (unknown) Allergies (units (unkn own) date) unknown) (unknown) (no (unknown) (unknown) Allergy/AdvReac (units (unknown) date) Type Severity unknown) Reaction Status Date / Time (unknown) (no (unknown) (unknown) Amorphous Sediment (units (unknown) date) 2 unknown) (unknown) (no (unknown) (unknown) Amorphous Sediment (units (unknown) date) unknown) (unknown) (no (unknown) (unknown) Anesthesia (units (unk nown) date) unknown) (unknown) (no (unknown) (unknown) Anxiety (-2002) (units (unknown) date) unknown) (unknown) (no (unknown) (unknown) BUN (7-17) mg/dL (units (unknown) date) unknown) (unknown) (no (unknown) (unknown) BUN 9 (7-17) mg/dL (units (unknown) date) unknown) (unknown) (no (unknown) (unknown) BUN/Creatinine (units (unknown) date) Ratio (6-22) unknown) (unknown) (no (unknown) (unknown) BUN/Creatinine (units (unknown) date) Ratio 16.1 (6-22) unknown) (unknown) (no (unknown) (unknown) Back pain at L4-L5 (units (unknown) date) level (-2014) unknown) (unknown) (no (unknown) (unknown) Baso # (Auto) (units ( unknown) date) (0-100) /uL unknown) (unknown) (no (unknown) (unknown) Baso # (Auto) 100 (units (unknown) date) (0-100) /uL unknown) (unknown) (no (unknown) (unknown) Baso % (Auto) (units ( unknown) date) (0-2) % unknown) (unknown) (no (unknown) (unknown) Baso % (Auto) 1.3 (units (unknown) date) (0-2) % unknown) (unknown) (no (unknown) (unknown) Biliary colic (units ( unknown) date) unknown) (unknown) (no (unknown) (unknown) Blood Pressure (units (unknown) date) 147/94 H 08/10/22 unknown) 15:12 (unknown) (no (unknown) (unknown) Blood Pressure (units (unknown) date) 147/94 H unknown) (unknown) (no (unknown) (unknown) Mari Skinner ARNP (units (unknown) date) [Primary Care unknown) Provider] (unknown) (no (unknown) (unknown) CARDIOVASCULAR: (units (unknown) date) Denies chest pain, unknown) palpitations, edema. (unknown) (no (unknown) (unknown) CARDIOVASCULAR: (units (unknown) date) Regular rate and unknown) rhythm without murmurs, peripheral pulses (unknown) (no (unknown) (unknown) Calcium (8.4-10.2) (units (unknown) date) mg/dL unknown) (unknown) (no (unknown) (unknown) Calcium 8.8 (units (un known) date) (8.4-10.2) mg/dL unknown) (unknown) (no (unknown) (unknown) Carbon Dioxide (units (unknown) date) (22-32) mmol/L unknown) (unknown) (no (unknown) (unknown) Carbon Dioxide 24 (units (unknown) date) (22-32) mmol/L unknown) (unknown) (no (unknown) (unknown) Chicken pox (units (un known) date) () unknown) (unknown) (no (unknown) (unknown) Chief Complaint: (units (unknown) date) Psychiatric unknown) Symptoms (unknown) (no (unknown) (unknown) Chloride (98-107) (units (unknown) date) mmol/L unknown) (unknown) (no (unknown) (unknown) Chloride 109 H (units (unknown) date) (98-107) mmol/L unknown) (unknown) (no (unknown) (unknown) Chronic hip pain, (units (unknown) date) bilateral unknown) (unknown) (no (unknown) (unknown) Chronic right hip (units (unknown) date) pain unknown) (unknown) (no (unknown) (unknown) Clinical (units (unkno wn) date) Impression: unknown) (unknown) (no (unknown) (unknown) Colon polyps (units (u nknown) date) (2019) unknown) (unknown) (no (unknown) (unknown) Cosign (units (unkno wn) date) unknown) (unknown) (no (unknown) (unknown) Course (units (unkno wn) date) unknown) (unknown) (no (unknown) (unknown) Creatinine (units (unk nown) date) (0.52-1.04) mg/dL unknown) (unknown) (no (unknown) (unknown) Creatinine 0.56 (units (unknown) date) (0.52-1.04) mg/dL unknown) (unknown) (no (unknown) (unknown) : 1980 (units (unknown) date) Acct:[id number] unknown) (unknown) (no (unknown) (unknown) Date of Service: (units (unknown) date) 08/10/22 unknown) (unknown) (no (unknown) (unknown) Departure (units (unkn own) date) unknown) (unknown) (no (unknown) (unknown) Depression (-2002) (units (unknown) date) unknown) (unknown) (no (unknown) (unknown) Diabetes mellitus (units (unknown) date) unknown) (unknown) (no (unknown) (unknown) Differential (units (u nknown) date) Diagnosis unknown) (unknown) (no (unknown) (unknown) Differential (units (u nknown) date) diagnosis: Likely unknown) suicidal ideation, depression and acute anxiety (unknown) (no (unknown) (unknown) Discharge Plan (units (unknown) date) unknown) (unknown) (no (unknown) (unknown) Discontinued (units (u nknown) date) Medications unknown) (unknown) (no (unknown) (unknown) Documented By: BS (units (unknown) date) unknown) (unknown) (no (unknown) (unknown) ED Attending (units (u nknown) date) Cosignature unknown) Attestation: (unknown) (no (unknown) (unknown) ENT: Nose without (units (unknown) date) bleeding, purulent unknown) drainage. Throat without erythema, (unknown) (no (unknown) (unknown) ER Physician: (units ( unknown) date) Raúl Stauffer unknown) (unknown) (no (unknown) (unknown) EYES: Pupils equal (units (unknown) date) round and reactive. unknown) Extraocular motions intact. No scleral (unknown) (no (unknown) (unknown) Effexor AdvReac (units (unknown) date) Mild Skin Uncoded unknown) 04/10/22 12:15 (unknown) (no (unknown) (unknown) Emergency Report (units (unknown) date) unknown) (unknown) (no (unknown) (unknown) Eos # (Auto) (units (u nknown) date) (0-450) /uL unknown) (unknown) (no (unknown) (unknown) Eos # (Auto) 200 (units (unknown) date) (0-450) /uL unknown) (unknown) (no (unknown) (unknown) Eos % (Auto) (2-4) (units (unknown) date) % unknown) (unknown) (no (unknown) (unknown) Eos % (Auto) 2.9 (units (unknown) date) (2-4) % unknown) (unknown) (no (unknown) (unknown) Estimated GFR > 60 (units (unknown) date) (>60) mL/min unknown) (unknown) (no (unknown) (unknown) Estimated GFR (units ( unknown) date) (>60) mL/min unknown) (unknown) (no (unknown) (unknown) Ethyl Alcohol < 10 (units (unknown) date) ( - 10) mg/dL unknown) (unknown) (no (unknown) (unknown) Ethyl Alcohol ( - (units (unknown) date) 10) mg/dL unknown) (unknown) (no (unknown) (unknown) Exam Narrative: (units (unknown) date) unknown) (unknown) (no (unknown) (unknown) Exam (units (unkno wn) date) unknown) (unknown) (no (unknown) (unknown) Fall (units (unkno wn) date) unknown) (unknown) (no (unknown) (unknown) Family History (units (unknown) date) (Reviewed 08/10/22 unknown) @ 17:32 by IKER Betancourt) (unknown) (no (unknown) (unknown) Father (units (unknown) date) Cancer unknown) (unknown) (no (unknown) (unknown) Fibroids (-2018) (units (unknown) date) unknown) (unknown) (no (unknown) (unknown) Fibromyalgia (units (u nknown) date) unknown) (unknown) (no (unknown) (unknown) Forgetfulness (units ( unknown) date) unknown) (unknown) (no (unknown) (unknown) Free T4 (units (unkno wn) date) (0.78-2.19) ng/dL unknown) (unknown) (no (unknown) (unknown) Free T4 1.32 (units (u nknown) date) (0.78-2.19) ng/dL unknown) (unknown) (no (unknown) (unknown) GASTROINTESTINAL: (units (unknown) date) Abdomen soft, unknown) non-tender, nondistended without guarding or (unknown) (no (unknown) (unknown) GASTROINTESTINAL: (units (unknown) date) Denies nausea, unknown) vomiting, abdominal pain, diarrhea, (unknown) (no (unknown) (unknown) GENERAL: Denies (units (unknown) date) chills, fatigue, unknown) fever, sweats. (unknown) (no (unknown) (unknown) GENERAL: This is a (units (unknown) date) well-nourished, unknown) well-developed patient, in no acute distress. (unknown) (no (unknown) (unknown) : Denies (units (unk nown) date) dysuria, frequency, unknown) incontinence, hematuria, urinary retention, (unknown) (no (unknown) (unknown) Gabapentin (units (unk n) date) (Gabapentin 300 Mg unknown) Capsule) 300 mg PO NOW ONE (unknown) (no (unknown) (unknown) General (units (unkno wn) date) unknown) (unknown) (no (unknown) (unknown) Globulin (1.7-4.1) (units (unknown) date) g/dL unknown) (unknown) (no (unknown) (unknown) Globulin 3.5 (units (u nknown) date) (1.7-4.1) g/dL unknown) (unknown) (no (unknown) (unknown) Glucose (70-100) (units (unknown) date) mg/dL unknown) (unknown) (no (unknown) (unknown) Glucose 94 (units (unk nown) date) (70-100) mg/dL unknown) (unknown) (no (unknown) (unknown) Grandfather Lung (units (unknown) date) cancer unknown) (unknown) (no (unknown) (unknown) Grandmother (units (un known) date) Cancer unknown) (unknown) (no (unknown) (unknown) HEAD: Atraumatic. (units (unknown) date) Normocephalic. unknown) (unknown) (no (unknown) (unknown) HEENT: Denies (units ( unknown) date) sinus pain, ear unknown) pain, sore throat, difficulty swallowing, (unknown) (no (unknown) (unknown) HPI - Psych (units (un known) date) unknown) (unknown) (no (unknown) (unknown) HPI Narrative: (units (unknown) date) unknown) (unknown) (no (unknown) (unknown) Hct (36-46) % (units ( unknown) date) unknown) (unknown) (no (unknown) (unknown) Hct 39.1 (36-46) % (units (unknown) date) unknown) (unknown) (no (unknown) (unknown) Heavy menstrual (units (unknown) date) period unknown) (unknown) (no (unknown) (unknown) Hgb (12.0-16.0) (units (unknown) date) g/dL unknown) (unknown) (no (unknown) (unknown) Hgb 13.2 (units (unkno wn) date) (12.0-16.0) g/dL unknown) (unknown) (no (unknown) (unknown) History of Present (units (unknown) date) Illness unknown) (unknown) (no (unknown) (unknown) History of bipolar (units (unknown) date) disorder unknown) (unknown) (no (unknown) (unknown) History of heart (units (unknown) date) disease unknown) (unknown) (no (unknown) (unknown) History of (units (unk nown) date) placement of ear unknown) tubes (-02/08/86) (unknown) (no (unknown) (unknown) History of (units (unk nown) date) recurrent ear unknown) infection (unknown) (no (unknown) (unknown) Home Medications (units (unknown) date) unknown) (unknown) (no (unknown) (unknown) Hypertension (units (u nknown) date) unknown) (unknown) (no (unknown) (unknown) I was immediately (units (unknown) date) available in the unknown) department for consultation. Documentation (unknown) (no (unknown) (unknown) Initial Vital (units ( unknown) date) Signs unknown) (unknown) (no (unknown) (unknown) Initial Vital (units ( unknown) date) Signs: unknown) (unknown) (no (unknown) (unknown) [facility] (units (unknown) date) [address] unknown) [place] [address] (unknown) (no (unknown) (unknown) Lab Data (units (unkno wn) date) unknown) (unknown) (no (unknown) (unknown) Lab Results (units (un known) date) unknown) (unknown) (no (unknown) (unknown) Labs: (units (unkno wn) date) unknown) (unknown) (no (unknown) (unknown) Last Admin: (units (un known) date) 08/10/22 19:08 unknown) Dose: 2 each (unknown) (no (unknown) (unknown) Last Admin: (units (un known) date) 08/10/22 19:10 unknown) Dose: 300 mg (unknown) (no (unknown) (unknown) Last Admin: (units (un known) date) 08/10/22 19:10 unknown) Dose: Not Given (unknown) (no (unknown) (unknown) Left shoulder pain (units (unknown) date) unknown) (unknown) (no (unknown) (unknown) Liver cancer (units (u nknown) date) unknown) (unknown) (no (unknown) (unknown) Lymph # (Auto) (units (unknown) date) (0508-5332) /uL unknown) (unknown) (no (unknown) (unknown) Lymph # (Auto) (units (unknown) date) 2800 (6311-5811) unknown) /uL (unknown) (no (unknown) (unknown) Lymph % (Auto) (units (unknown) date) (25-40) % unknown) (unknown) (no (unknown) (unknown) Lymph % (Auto) (units (unknown) date) 34.5 (25-40) % unknown) (unknown) (no (unknown) (unknown) MCH (26-34) PG (units (unknown) date) unknown) (unknown) (no (unknown) (unknown) MCH 27.6 (26-34) (units (unknown) date) PG unknown) (unknown) (no (unknown) (unknown) MCHC (30-36) % (units (unknown) date) unknown) (unknown) (no (unknown) (unknown) MCHC 33.7 (30-36) (units (unknown) date) % unknown) (unknown) (no (unknown) (unknown) MCV (80-100) fL (units (unknown) date) unknown) (unknown) (no (unknown) (unknown) MCV 82.1 (80-100) (units (unknown) date) fL unknown) (unknown) (no (unknown) (unknown) MDM - Psych (units (un known) date) unknown) (unknown) (no (unknown) (unknown) MDM Narrative (units ( unknown) date) unknown) (unknown) (no (unknown) (unknown) MSK: Denies (units (un known) date) weakness, joint unknown) pain, or bony pain. (unknown) (no (unknown) (unknown) MSK: Moves all (units (unknown) date) extremities. Normal unknown) range of motion, no clubbing or edema. (unknown) (no (unknown) (unknown) Medical History (units (unknown) date) (Reviewed 08/10/22 unknown) @ 17:32 by IKER Betancourt) (unknown) (no (unknown) (unknown) Medical decision (units (unknown) date) making narrative: unknown) (unknown) (no (unknown) (unknown) Medication (units (unk nown) date) Instructions unknown) Recorded Confirmed (unknown) (no (unknown) (unknown) Medication (units (unk nown) date) Instructions unknown) Recorded (unknown) (no (unknown) (unknown) Mental health (units ( unknown) date) problem unknown) (unknown) (no (unknown) (unknown) Migraines (-1994) (units (unknown) date) unknown) (unknown) (no (unknown) (unknown) Sully # (Auto) (units ( unknown) date) (0-900) /uL unknown) (unknown) (no (unknown) (unknown) Sully # (Auto) 500 (units (unknown) date) (0-900) /uL unknown) (unknown) (no (unknown) (unknown) Sully % (Auto) (units ( unknown) date) (3-14) % unknown) (unknown) (no (unknown) (unknown) Sully % (Auto) 6.0 (units (unknown) date) (3-14) % unknown) (unknown) (no (unknown) (unknown) Mother (units (unknown) date) Hyperlipidemia unknown) (unknown) (no (unknown) (unknown) Multi Vitamin (units ( unknown) date) 11/04/17 08/01/22 unknown) (unknown) (no (unknown) (unknown) Multi Vitamin (units ( unknown) date) unknown) (unknown) (no (unknown) (unknown) NECK: Trachea (units ( unknown) date) midline. No JVD or unknown) lymphadenopathy. Nontender. (unknown) (no (unknown) (unknown) NEURO: A+O x 3. (units (unknown) date) unknown) (unknown) (no (unknown) (unknown) NEUROLOGIC: Denies (units (unknown) date) weakness, unknown) dizziness, headache, numbness, confusion. (unknown) (no (unknown) (unknown) Narrative (units (unkn own) date) unknown) (unknown) (no (unknown) (unknown) Narrative: See (units (unknown) date) HPI. unknown) (unknown) (no (unknown) (unknown) Narrative: (units (unk nown) date) unknown) (unknown) (no (unknown) (unknown) Neurovascularly (units (unknown) date) intact. unknown) (unknown) (no (unknown) (unknown) Neut # (Auto) (units ( unknown) date) (7757-6549) /uL unknown) (unknown) (no (unknown) (unknown) Neut # (Auto) 4500 (units (unknown) date) (7342-6634) /uL unknown) (unknown) (no (unknown) (unknown) Neut % (Auto) (units ( unknown) date) (50-75) % unknown) (unknown) (no (unknown) (unknown) Neut % (Auto) 55.3 (units (unknown) date) (50-75) % unknown) (unknown) (no (unknown) (unknown) No Action (units (unkn own) date) unknown) (unknown) (no (unknown) (unknown) Non-healing wound (units (unknown) date) unknown) (unknown) (no (unknown) (unknown) Not currently (units ( unknown) date) unknown) (unknown) (no (unknown) (unknown) Ordered: (units (unkno wn) date) unknown) (unknown) (no (unknown) (unknown) Orders (units (unkno wn) date) unknown) (unknown) (no (unknown) (unknown) Oxygen Delivery (units (unknown) date) Method Room Air unknown) 08/10/22 15:12 (unknown) (no (unknown) (unknown) Oxygen Delivery (units (unknown) date) Method Room Air unknown) (unknown) (no (unknown) (unknown) PSYCHIATRIC: (units (u nknown) date) Endorses anxiety. unknown) (unknown) (no (unknown) (unknown) Painful menstrual (units (unknown) date) periods unknown) (unknown) (no (unknown) (unknown) Patient (units (unkno wn) date) Disposition: Xfer unknown) [facility] ([facility]) (no (unknown) (unknown) Patient History (units (unknown) date) unknown) (unknown) (no (unknown) (unknown) Patient called 911 (units (unknown) date) and was instructed unknown) to come to the emergency department. (unknown) (no (unknown) (unknown) Patient is (units (unk nown) date) agreeable to unknown) inpatient treatment. (unknown) (no (unknown) (unknown) Patient is cleared (units (unknown) date) for inpatient unknown) admission. 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 (unknown) (no (unknown) (unknown) Plt Count (units (unkn own) date) (150-400) X103/uL unknown) (unknown) (no (unknown) (unknown) Plt Count 250 (units ( unknown) date) (150-400) X103/uL unknown) (unknown) (no (unknown) (unknown) Potassium (units (unkn own) date) (3.4-5.1) mmol/L unknown) (unknown) (no (unknown) (unknown) Potassium 3.4 (units ( unknown) date) (3.4-5.1) mmol/L unknown) (unknown) (no (unknown) (unknown) Prescriptions: (units (unknown) date) unknown) (unknown) (no (unknown) (unknown) Previous Rx's (units ( unknown) date) unknown) (unknown) (no (unknown) (unknown) Pulse Oximetry 97 (units (unknown) date) 08/10/22 15:12 unknown) (unknown) (no (unknown) (unknown) Pulse Oximetry 97 (units (unknown) date) unknown) (unknown) (no (unknown) (unknown) Pulse Rate 84 (units ( unknown) date) 08/10/22 15:12 unknown) (unknown) (no (unknown) (unknown) Pulse Rate 84 (units ( unknown) date) unknown) (unknown) (no (unknown) (unknown) RBC (4.0-5.2) (units ( unknown) date) X106/uL unknown) (unknown) (no (unknown) (unknown) RBC 4.76 (4.0-5.2) (units (unknown) date) X106/uL unknown) (unknown) (no (unknown) (unknown) RDW (11.6-14.8) % (units (unknown) date) unknown) (unknown) (no (unknown) (unknown) RDW 15.8 H (units (unk nown) date) (11.6-14.8) % unknown) (unknown) (no (unknown) (unknown) RESPIRATORY: (units (u nknown) date) Breath sounds equal unknown) and clear bilaterally. No wheezes, rales, or (unknown) (no (unknown) (unknown) RESPIRATORY: (units (u nknown) date) Denies dyspnea, unknown) cough, wheezing, sputum. (unknown) (no (unknown) (unknown) Referrals: (units (unk nown) date) unknown) (unknown) (no (unknown) (unknown) Related Data (units (u nknown) date) unknown) (unknown) (no (unknown) (unknown) Respiratory Rate (units (unknown) date) 16 08/10/22 15:12 unknown) (unknown) (no (unknown) (unknown) Respiratory Rate (units (unknown) date) 16 unknown) (unknown) (no (unknown) (unknown) Review of Systems (units (unknown) date) unknown) (unknown) (no (unknown) (unknown) Reviewed (units (unkno wn) date) unknown) (unknown) (no (unknown) (unknown) Right shoulder (units (unknown) date) pain unknown) (unknown) (no (unknown) (unknown) Rx Instructions: (units (unknown) date) unknown) (unknown) (no (unknown) (unknown) SARS-CoV-2 (PCR) (units (unknown) date) (Negative) unknown) (unknown) (no (unknown) (unknown) SARS-CoV-2 (PCR) (units (unknown) date) Negative (Negative) unknown) (unknown) (no (unknown) (unknown) SKIN: Denies rash, (units (unknown) date) skin lesions, or unknown) pruritis. (unknown) (no (unknown) (unknown) SKIN: Warm, dry, (units (unknown) date) no rashes or unknown) lesions noted. (unknown) (no (unknown) (unknown) Salicylates < 1.0 (units (unknown) date) (<20) mg/dL unknown) (unknown) (no (unknown) (unknown) Salicylates (<20) (units (unknown) date) mg/dL unknown) (unknown) (no (unknown) (unknown) Sciatic leg pain (units (unknown) date) unknown) (unknown) (no (unknown) (unknown) Scoliosis (-1989) (units (unknown) date) unknown) (unknown) (no (unknown) (unknown) See Rx (units (unkno wn) date) Instructions PO unknown) .COMPLEX PRN (Reason: pain) Qty: 60 3RF (unknown) (no (unknown) (unknown) Signed By: (units (unk nown) date) unknown) (unknown) (no (unknown) (unknown) Smoking Status: (units (unknown) date) Current some day unknown) smoker (unknown) (no (unknown) (unknown) Social History (units (unknown) date) (Reviewed 08/10/22 unknown) @ 17:32 by IKER Betancourt) (unknown) (no (unknown) (unknown) Sodium (137-145) (units (unknown) date) mmol/L unknown) (unknown) (no (unknown) (unknown) Sodium 141 (units (unk nown) date) (137-145) mmol/L unknown) (unknown) (no (unknown) (unknown) Stated Complaint: (units (unknown) date) mental health want unknown) to kill herself (unknown) (no (unknown) (unknown) Stop: 08/10/22 (units (unknown) date) 18:34 unknown) (unknown) (no (unknown) (unknown) Stop: 08/10/22 (units (unknown) date) 19:05 unknown) (unknown) (no (unknown) (unknown) Substance Use (units ( unknown) date) Type: marijuana unknown) (unknown) (no (unknown) (unknown) Suicidal ideation (units (unknown) date) unknown) (unknown) (no (unknown) (unknown) Surgical History (units (unknown) date) (Reviewed 08/10/22 unknown) @ 17:32 by IKER Betancourt) (unknown) (no (unknown) (unknown) TSH (0.47-4.68) (units (unknown) date) uIU/mL unknown) (unknown) (no (unknown) (unknown) TSH 3.02 (units (unkno wn) date) (0.47-4.68) uIU/mL unknown) (unknown) (no (unknown) (unknown) Take 1 capsule am (units (unknown) date) and afternoon, 3 unknown) capsules (900mg) at bedtime daily (unknown) (no (unknown) (unknown) Take 1 tab (30mg) (units (unknown) date) daily for ADHD unknown) (unknown) (no (unknown) (unknown) Take 1 tab daily (units (unknown) date) (to take the place unknown) of 2-30mg tabs that insurance won't (unknown) (no (unknown) (unknown) Take 1-2 tablets (units (unknown) date) every 6-8 hours as unknown) needed for headaches (unknown) (no (unknown) (unknown) Temperature 97.7 F (units (unknown) date) 08/10/22 15:12 unknown) (unknown) (no (unknown) (unknown) Temperature 97.7 F (units (unknown) date) unknown) (unknown) (no (unknown) (unknown) Thyroid disease (units (unknown) date) unknown) (unknown) (no (unknown) (unknown) Time Seen by (units (u nknown) date) Provider: 08/10/22 unknown) 17:14 (unknown) (no (unknown) (unknown) Total Bilirubin (units (unknown) date) (0.2-1.3) mg/dL unknown) (unknown) (no (unknown) (unknown) Total Bilirubin (units (unknown) date) 0.4 (0.2-1.3) mg/dL unknown) (unknown) (no (unknown) (unknown) Total Protein (units ( unknown) date) (6.3-8.2) g/dL unknown) (unknown) (no (unknown) (unknown) Total Protein 7.8 (units (unknown) date) (6.3-8.2) g/dL unknown) (unknown) (no (unknown) (unknown) U Benzodiazepines (units (unknown) date) Scrn (Negative) unknown) (unknown) (no (unknown) (unknown) U Benzodiazepines (units (unknown) date) Scrn Negative unknown) (Negative) (unknown) (no (unknown) (unknown) U Marijuana (THC) (units (unknown) date) Screen (Negative) unknown) (unknown) (no (unknown) (unknown) U Marijuana (THC) (units (unknown) date) Screen Positive H unknown) (Negative) (unknown) (no (unknown) (unknown) U Methamphetamines (units (unknown) date) Scrn (Negative) unknown) (unknown) (no (unknown) (unknown) U Methamphetamines (units (unknown) date) Scrn Negative unknown) (Negative) (unknown) (no (unknown) (unknown) U Opiates 300ng/mL (units (unknown) date) cut (Negative) unknown) (unknown) (no (unknown) (unknown) U Opiates 300ng/mL (units (unknown) date) cut Negative unknown) (Negative) (unknown) (no (unknown) (unknown) U Tricyclic (units (un known) date) Antidepress unknown) (Negative) (unknown) (no (unknown) (unknown) U Tricyclic (units (un known) date) Antidepress unknown) Negative (Negative) (unknown) (no (unknown) (unknown) UTI (urinary tract (units (unknown) date) infection) unknown) (unknown) (no (unknown) (unknown) Ur Amphetamines (units (unknown) date) Screen (Negative) unknown) (unknown) (no (unknown) (unknown) Ur Amphetamines (units (unknown) date) Screen Positive H unknown) (Negative) (unknown) (no (unknown) (unknown) Ur Barbiturates (units (unknown) date) Screen (Negative) unknown) (unknown) (no (unknown) (unknown) Ur Barbiturates (units (unknown) date) Screen Positive H unknown) (Negative) (unknown) (no (unknown) (unknown) Ur Culture (units (unk nown) date) Indicated? Specimen unknown) cultured (unknown) (no (unknown) (unknown) Ur Culture (units (unk nown) date) Indicated? unknown) (unknown) (no (unknown) (unknown) Ur Leukocyte (units (u nknown) date) Esterase (NEGATIVE) unknown) (unknown) (no (unknown) (unknown) Ur Leukocyte (units (u nknown) date) Esterase Negative unknown) (NEGATIVE) (unknown) (no (unknown) (unknown) Ur MDMA Scrn (units (u nknown) date) (Ecstasy) unknown) (Negative) (unknown) (no (unknown) (unknown) Ur MDMA Scrn (units (u nknown) date) (Ecstasy) Negative unknown) (Negative) (unknown) (no (unknown) (unknown) Ur Oxycodone (units (u nknown) date) Screen (Negative) unknown) (unknown) (no (unknown) (unknown) Ur Oxycodone (units (u nknown) date) Screen Negative unknown) (Negative) (unknown) (no (unknown) (unknown) Ur Phencyclidine (units (unknown) date) Scrn (Negative) unknown) (unknown) (no (unknown) (unknown) Ur Phencyclidine (units (unknown) date) Scrn Negative unknown) (Negative) (unknown) (no (unknown) (unknown) Ur Specific (units (un known) date) [place] unknown) (1.000-1.035) (unknown) (no (unknown) (unknown) Ur Specific (units (un known) date) [place] 1.010 unknown) (1.000-1.035) (unknown) (no (unknown) (unknown) Urine Appearance (units (unknown) date) Clear unknown) (unknown) (no (unknown) (unknown) Urine Appearance (units (unknown) date) unknown) (unknown) (no (unknown) (unknown) Urine Bacteria (units (unknown) date) (None) unknown) (unknown) (no (unknown) (unknown) Urine Bacteria (units (unknown) date) Occasional (0-1) unknown) (None) (unknown) (no (unknown) (unknown) Urine Bilirubin (units (unknown) date) (NEGATIVE) unknown) (unknown) (no (unknown) (unknown) Urine Bilirubin (units (unknown) date) Negative (NEGATIVE) unknown) (unknown) (no (unknown) (unknown) Urine Cocaine (units ( unknown) date) Screen (Negative) unknown) (unknown) (no (unknown) (unknown) Urine Cocaine (units ( unknown) date) Screen Negative unknown) (Negative) (unknown) (no (unknown) (unknown) Urine Color Yellow (units (unknown) date) unknown) (unknown) (no (unknown) (unknown) Urine Color (units (un known) date) unknown) (unknown) (no (unknown) (unknown) Urine Glucose (UA) (units (unknown) date) (Negative) g/dL unknown) (unknown) (no (unknown) (unknown) Urine Glucose (UA) (units (unknown) date) Negative (Negative) unknown) g/dL (unknown) (no (unknown) (unknown) Urine Ketones (units ( unknown) date) (NEGATIVE) unknown) (unknown) (no (unknown) (unknown) Urine Ketones (units ( unknown) date) Negative (NEGATIVE) unknown) (unknown) (no (unknown) (unknown) Urine Methadone (units (unknown) date) Screen (Negative) unknown) (unknown) (no (unknown) (unknown) Urine Methadone (units (unknown) date) Screen Negative unknown) (Negative) (unknown) (no (unknown) (unknown) Urine Nitrate (units ( unknown) date) (Negative) unknown) (unknown) (no (unknown) (unknown) Urine Nitrate (units ( unknown) date) Negative (Negative) unknown) (unknown) (no (unknown) (unknown) Urine Occult Blood (units (unknown) date) (Negative) unknown) (unknown) (no (unknown) (unknown) Urine Occult Blood (units (unknown) date) Trace-intact unknown) (Negative) (unknown) (no (unknown) (unknown) Urine (units (unknown) date) Test (Negative) unknown) (unknown) (no (unknown) (unknown) Urine (units (unknown) date) Test Negative unknown) (Negative) (unknown) (no (unknown) (unknown) Urine Protein (units ( unknown) date) (Negative) unknown) (unknown) (no (unknown) (unknown) Urine Protein (units ( unknown) date) Negative (Negative) unknown) (unknown) (no (unknown) (unknown) Urine RBC (units (unkn own) date) (0-5/HPF) unknown) (unknown) (no (unknown) (unknown) Urine RBC 1-5/hpf (units (unknown) date) (0-5/HPF) unknown) (unknown) (no (unknown) (unknown) Urine Urobilinogen (units (unknown) date) (0.2) E.U./dL unknown) (unknown) (no (unknown) (unknown) Urine Urobilinogen (units (unknown) date) 0.2 (0.2) E.U./dL unknown) (unknown) (no (unknown) (unknown) Urine WBC (units (unkn own) date) (0-5/HPF) unknown) (unknown) (no (unknown) (unknown) Urine WBC None (units (unknown) date) seen (0-5/HPF) unknown) (unknown) (no (unknown) (unknown) Urine pH (4.5-8.0) (units (unknown) date) unknown) (unknown) (no (unknown) (unknown) Urine pH 7.0 (units (u nknown) date) (4.5-8.0) unknown) (unknown) (no (unknown) (unknown) Vaginal delivery (units (unknown) date) unknown) (unknown) (no (unknown) (unknown) Vital Signs - 8 hr (units (unknown) date) unknown) (unknown) (no (unknown) (unknown) Vital Signs (units (un known) date) unknown) (unknown) (no (unknown) (unknown) Vital signs: (units (u nknown) date) unknown) (unknown) (no (unknown) (unknown) WBC (4.5-11.0) (units (unknown) date) X103/uL unknown) (unknown) (no (unknown) (unknown) WBC 8.1 (4.5-11.0) (units (unknown) date) X103/uL unknown) (unknown) (no (unknown) (unknown) [Embedded Image (units (unknown) date) Not Available] unknown) (unknown) (no (unknown) (unknown) acetaminophen 325 (units (unknown) date) mg capsule 650 mg unknown) PO QID PRN pain #60 caps 02/28/22 (unknown) (no (unknown) (unknown) acetaminophen (units ( unknown) date) [Tylenol] 325 mg unknown) capsule (unknown) (no (unknown) (unknown) alcohol intake (units (unknown) date) frequency: unknown) holidays/special occasions only (unknown) (no (unknown) (unknown) alcohol intake: (units (unknown) date) never unknown) (unknown) (no (unknown) (unknown) amoxicillin (units (un known) date) AdvReac Diarrhea unknown) Verified 04/10/22 10:58 (unknown) (no (unknown) (unknown) amphetamine, (units (u nknown) date) barbiturates and unknown) THC. Patient has been evaluated by Michelle of [employer]. (unknown) (no (unknown) (unknown) breasts (units (unkno wn) date) unknown) (unknown) (no (unknown) (unknown) butalbital-acetami (units (unknown) date) nophen-caff unknown) 50-325-40 mg tablet (unknown) (no (unknown) (unknown) butalbital-acetami (units (unknown) date) nophen-caffeine See unknown) Rx Instructions PO .COMPLEX 08/01/22 (unknown) (no (unknown) (unknown) changes of (units (unk nown) date) unknown) (unknown) (no (unknown) (unknown) clear. No sinus (units (unknown) date) tenderness. unknown) (unknown) (no (unknown) (unknown) constipation. (units ( unknown) date) unknown) (unknown) (no (unknown) (unknown) cover). (units (unkno wn) date) unknown) (unknown) (no (unknown) (unknown) dextroamphetamine- (units (unknown) date) amphetamine 30 mg unknown) capsule,extended release 24hr (unknown) (no (unknown) (unknown) dextroamphetamine- (units (unknown) date) amphetamine ER 30 unknown) mg PO QAM #30 caps 08/01/22 (unknown) (no (unknown) (unknown) diclofenac sodium (units (unknown) date) 75 mg 75 mg PO BID unknown) PRN pain #60 tabs 05/29/22 (unknown) (no (unknown) (unknown) diclofenac sodium (units (unknown) date) 75 mg unknown) tablet,delayed release (DR/EC) (unknown) (no (unknown) (unknown) dizziness. (units (unk nown) date) unknown) (unknown) (no (unknown) (unknown) duloxetine 60 mg (units (unknown) date) capsule,delayed 60 unknown) mg PO DAILY #90 caps 07/17/22 (unknown) (no (unknown) (unknown) duloxetine 60 mg (units (unknown) date) capsule,delayed unknown) release(DR/EC) (unknown) (no (unknown) (unknown) each PO NOW ONE (units (unknown) date) unknown) (unknown) (no (unknown) (unknown) flank pain. (units (un known) date) unknown) (unknown) (no (unknown) (unknown) gabapentin 300 mg (units (unknown) date) capsule 300 mg PO unknown) TID #450 caps 01/25/22 (unknown) (no (unknown) (unknown) gabapentin 300 mg (units (unknown) date) capsule unknown) (unknown) (no (unknown) (unknown) has been reviewed. (units (unknown) date) unknown) (unknown) (no (unknown) (unknown) household members: (units (unknown) date) significant other unknown) and children (unknown) (no (unknown) (unknown) icterus, injection (units (unknown) date) or drainage. unknown) (unknown) (no (unknown) (unknown) ideation. (units (unkn own) date) Assessment was unknown) encouraging and patient is agreeable to inpatient (unknown) (no (unknown) (unknown) intact, cap refill (units (unknown) date) <2 sec. unknown) (unknown) (no (unknown) (unknown) marital status: (units (unknown) date) unmarried,living unknown) together (unknown) (no (unknown) (unknown) occupational (units (u nknown) date) status: employed unknown) (unknown) (no (unknown) (unknown) pills that include (units (unknown) date) Adderall, Fioricet, unknown) gabapentin, diclofenac and Cymbalta. (unknown) (no (unknown) (unknown) rebound. No (units (un known) date) suprapubic pain. unknown) (unknown) (no (unknown) (unknown) release (units (unkno wn) date) unknown) (unknown) (no (unknown) (unknown) rhonchi. No cough. (units (unknown) date) No increased unknown) respiratory effort. No accessory muscle use. (unknown) (no (unknown) (unknown) significant life (units (unknown) date) stressors and had a unknown) plan to kill herself by taking all of her (unknown) (no (unknown) (unknown) start after (units (un known) date) finishing unknown) ketoralac. take with food. (unknown) (no (unknown) (unknown) substance use (units ( unknown) date) type: does not use unknown) (unknown) (no (unknown) (unknown) suicidal ideation. (units (unknown) date) Patient denies any unknown) homicidal ideation. Patient has (unknown) (no (unknown) (unknown) tablet,delayed (units (unknown) date) release unknown) (unknown) (no (unknown) (unknown) tonsillar (units (unkn own) date) hypertrophy or unknown) exudate. [place] midline. Airway patent. TMs and canals (unknown) (no (unknown) (unknown) treatment. Labs (units (unknown) date) within normal unknown) limits. Urine drug screen reveals positive for (unknown) (no (unknown) (unknown) was brought to the (units (unknown) date) emergency unknown) department by family friends after admitting to Result panel 113 (unknown) (no date) (unknown) (unknown) (no value) (units (un known) unknown) (unknown) (no date) (unknown) (unknown) Mixed gram + (units ( unknown) dexter. Deemed unknown) unsuitable for further studies. Result panel 114 (unknown) (no date) (unknown) (unknown) 2.2 ug/ml (unkn own) (unknown) (no date) (unknown) (unknown) 2.2 ug/ml (unkn own) Result panel 115 (unknown) (no (unknown) (unknown) (no value) (units (unk nown) date) unknown) (unknown) (no (unknown) (unknown) 08/21/22 (units (unkno wn) date) unknown) (unknown) (no (unknown) (unknown) [id number] (units (unkno wn) date) unknown) (unknown) (no (unknown) (unknown) ADHD () (units (u nknown) date) unknown) (unknown) (no (unknown) (unknown) Abnormal Pap (units (u nknown) date) smear of cervix unknown) () (unknown) (no (unknown) (unknown) Age/Sex: 41 / F (units (unknown) date) Date of Service: unknown) (unknown) (no (unknown) (unknown) Allergies (units (unkn own) date) () unknown) (unknown) (no (unknown) (unknown) Allergies (units (unkn own) date) unknown) (unknown) (no (unknown) (unknown) [place], [place] (units ( unknown) date) [id number] unknown) (unknown) (no (unknown) (unknown) Anesthesia (units (unk nown) date) unknown) (unknown) (no (unknown) (unknown) Anxiety () (units (unknown) date) unknown) (unknown) (no (unknown) (unknown) Attending Dr: (units ( unknown) date) Mari DONG unknown) (unknown) (no (unknown) (unknown) Back pain at (units (u nknown) date) L4-L5 level unknown) () (unknown) (no (unknown) (unknown) Biliary colic (units ( unknown) date) unknown) (unknown) (no (unknown) (unknown) Chicken pox (units (un known) date) () unknown) (unknown) (no (unknown) (unknown) Chronic hip (units (un known) date) pain, bilateral unknown) (unknown) (no (unknown) (unknown) Chronic right (units ( unknown) date) hip pain unknown) (unknown) (no (unknown) (unknown) Colon polyps (units (u nknown) date) (-2018) unknown) (unknown) (no (unknown) (unknown) Confirmed (units (unkn own) date) 08/21/22] unknown) (unknown) (no (unknown) (unknown) DAILY 08/21/22 (units (unknown) date) [History unknown) Confirmed 08/21/22] (unknown) (no (unknown) (unknown) : 1980 (units (unknown) date) Acct:[id number] unknown) (unknown) (no (unknown) (unknown) Date of Last (units (u nknown) date) Menstrual Period: unknown) 08/10/22 (unknown) (no (unknown) (unknown) Depression (units (unk nown) date) () unknown) (unknown) (no (unknown) (unknown) Dept at (units (unkno wn) date) . unknown) (unknown) (no (unknown) (unknown) Diabetes (units (unkno wn) date) mellitus unknown) (unknown) (no (unknown) (unknown) Diarrhea (units (unkno wn) date) unknown) (unknown) (no (unknown) (unknown) Documented By: (units (unknown) date) Mari Skinner unknown) 08/21/22 1128 (unknown) (no (unknown) (unknown) Draft (units (unkno wn) date) unknown) (unknown) (no (unknown) (unknown) ER F/u, (units (unkno wn) date) discharge from unknown) [facility]. (unknown) (no (unknown) (unknown) Effexor Adverse (units (unknown) date) Reaction (Mild, unknown) Uncoded 08/21/22 11:29) (unknown) (no (unknown) (unknown) Fall (units (unkno wn) date) unknown) (unknown) (no (unknown) (unknown) Family History (units (unknown) date) (Reviewed unknown) 08/10/22 @ 17:32 by IKER Betancourt) (unknown) (no (unknown) (unknown) Father (units (unknown) date) Cancer unknown) (unknown) (no (unknown) (unknown) Fibroids () (units (unknown) date) unknown) (unknown) (no (unknown) (unknown) Fibromyalgia (units (u nknown) date) unknown) (unknown) (no (unknown) (unknown) [facility]) (unknown) (no (unknown) (unknown) Forgetfulness (units ( unknown) date) unknown) (unknown) (no (unknown) (unknown) Grandfather Lung (units (unknown) date) cancer unknown) (unknown) (no (unknown) (unknown) Grandmother (units (un known) date) Cancer unknown) (unknown) (no (unknown) (unknown) Health (units (unkno wn) date) Management unknown) reviewed with patient: Yes (unknown) (no (unknown) (unknown) Health (units (unkno wn) date) Management unknown) (unknown) (no (unknown) (unknown) Heavy menstrual (units (unknown) date) period unknown) (unknown) (no (unknown) (unknown) History of (units (unk nown) date) bipolar disorder unknown) (unknown) (no (unknown) (unknown) History of heart (units (unknown) date) disease unknown) (unknown) (no (unknown) (unknown) History of (units (unk nown) date) placement of ear unknown) tubes (02/08/86) (unknown) (no (unknown) (unknown) History of (units (unk nown) date) recurrent ear unknown) infection (unknown) (no (unknown) (unknown) Hypertension (units (u nknown) date) unknown) (unknown) (no (unknown) (unknown) Intake Note: (units (u nknown) date) unknown) (unknown) (no (unknown) (unknown) Intake performed (units (unknown) date) by: unknown) Marlee Jc (unknown) (no (unknown) (unknown) Intake (units (unkno wn) date) unknown) (unknown) (no (unknown) (unknown) Intake- Clincial (units (unknown) date) Staff unknown) (unknown) (no (unknown) (unknown) Internal (units (unkno wn) date) Medicine Office unknown) Visit (unknown) (no (unknown) (unknown) Is last (units (unkno wn) date) menstrual period unknown) known: Yes (unknown) (no (unknown) (unknown) Last Menstural (units (unknown) date) Cycle + Details unknown) (unknown) (no (unknown) (unknown) Left shoulder (units ( unknown) date) pain unknown) (unknown) (no (unknown) (unknown) Liver cancer (units (u nknown) date) unknown) (unknown) (no (unknown) (unknown) Loc: [facility] (units (unkno wn) date) unknown) (unknown) (no (unknown) (unknown) Medical History (units (unknown) date) (Reviewed unknown) 08/10/22 @ 17:32 by IKER Betancourt) (unknown) (no (unknown) (unknown) Medications (units (un known) date) unknown) (unknown) (no (unknown) (unknown) Mental health (units ( unknown) date) problem unknown) (unknown) (no (unknown) (unknown) Migraines (units (unkn own) date) (-1993) unknown) (unknown) (no (unknown) (unknown) Mother (units (unknown) date) Hyperlipidemia unknown) (unknown) (no (unknown) (unknown) Multi Vitamin (units ( unknown) date) 11/04/17 [History unknown) Confirmed 08/01/22] (unknown) (no (unknown) (unknown) Non-healing (units (un known) date) wound unknown) (unknown) (no (unknown) (unknown) Not currently (units ( unknown) date) unknown) (unknown) (no (unknown) (unknown) PFSH (units (unkno wn) date) unknown) (unknown) (no (unknown) (unknown) PO .COMPLEX PRN (units (unknown) date) pain #60 tabs unknown) 08/01/22 [Rx] (unknown) (no (unknown) (unknown) Painful (units (unkno wn) date) menstrual periods unknown) (unknown) (no (unknown) (unknown) Patient: (units (unkno wn) date) Kirsten Deng N unknown) MR#: [id number] (unknown) (no (unknown) (unknown) 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 (unknown) (no (unknown) (unknown) Reason For Visit (units (unknown) date) unknown) (unknown) (no (unknown) (unknown) Right shoulder (units (unknown) date) pain unknown) (unknown) (no (unknown) (unknown) Sciatic leg pain (units (unknown) date) unknown) (unknown) (no (unknown) (unknown) Scoliosis (units (unkn own) date) () unknown) (unknown) (no (unknown) (unknown) Signed By: (units (unk nown) date) unknown) (unknown) (no (unknown) (unknown) Skin changes of (units (unknown) date) breasts unknown) (unknown) (no (unknown) (unknown) Smoking Status: (units (unknown) date) Current some day unknown) smoker (unknown) (no (unknown) (unknown) Social History (units (unknown) date) unknown) (unknown) (no (unknown) (unknown) Surgical History (units (unknown) date) (Reviewed unknown) 08/10/22 @ 17:32 by IKER Betancourt) (unknown) (no (unknown) (unknown) This note may (units ( unknown) date) have been all or unknown) partially generated using voice recognition (unknown) (no (unknown) (unknown) Thyroid disease (units (unknown) date) unknown) (unknown) (no (unknown) (unknown) Tobacco + (units (unkn own) date) Substance Use unknown) (unknown) (no (unknown) (unknown) Tobacco Status (units (unknown) date) unknown) (unknown) (no (unknown) (unknown) UTI (urinary (units (u nknown) date) tract infection) unknown) (unknown) (no (unknown) (unknown) Vaginal delivery (units (unknown) date) unknown) (unknown) (no (unknown) (unknown) Visit Reasons: (units (unknown) date) ER follow up 03 unknown) (unknown) (no (unknown) (unknown) alcohol intake: (units (unknown) date) never unknown) (unknown) (no (unknown) (unknown) amoxicillin (units (un known) date) Adverse Reaction unknown) (Verified 08/21/22 11:29) (unknown) (no (unknown) (unknown) butalbital-aceta (units (unknown) date) minophen-caffeine unknown) 50 mg-325 mg-40 mg tablet See Rx Instructions (unknown) (no (unknown) (unknown) dextroamphetamin (units (unknown) date) e-amphetamine ER unknown) 10 mg 24hr capsule,extend release 20 mg PO (unknown) (no (unknown) (unknown) duloxetine 20 mg (units (unknown) date) capsule,delayed unknown) release 20 mg PO DAILY 08/21/22 [History (unknown) (no (unknown) (unknown) gabapentin 100 (units (unknown) date) mg capsule 300 mg unknown) PO TID 08/21/22 [History Confirmed 08/21/22] (unknown) (no (unknown) (unknown) have occurred. (units (unknown) date) If there are any unknown) questions, please contact the Medical Records (unknown) (no (unknown) (unknown) household (units (unkn own) date) members: unknown) significant other and children (unknown) (no (unknown) (unknown) lamotrigine 25 (units (unknown) date) mg tablet 50 mg unknown) PO DAILY 08/21/22 [History Confirmed 08/21/22] (unknown) (no (unknown) (unknown) marital status: (units (unknown) date) unmarried,living unknown) together (unknown) (no (unknown) (unknown) may occur. (units (unk nown) date) Occasional unknown) wrong-word or 'sound-alike' substitutions may have (unknown) (no (unknown) (unknown) occupational (units (u nknown) date) status: employed unknown) (unknown) (no (unknown) (unknown) occurred due to (units (unknown) date) the inherent unknown) limitations of voice recognition software. Please (unknown) (no (unknown) (unknown) read the note (units ( unknown) date) carefully and unknown) recognize, using context, where these substitutions (unknown) (no (unknown) (unknown) software. (units (unkn own) date) Although every unknown) effort is made to edit content, cathode builder errors (unknown) (no (unknown) (unknown) substance use (units ( unknown) date) type: does not unknown) use (unknown) (no (unknown) (unknown) trazodone 100 mg (units (unknown) date) tablet 100 mg PO unknown) BEDTIME 08/21/22 [History Confirmed 08/21/22] (unknown) (no (unknown) (unknown) valacyclovir 500 (units (unknown) date) mg tablet 500 mg unknown) PO BID 08/21/22 [History Confirmed 08/21/22] Result panel 116 (unknown) (no (unknown) (unknown) (no value) (units (unk nown) date) unknown) (unknown) (no (unknown) (unknown) 08/21/22 (units (unkno wn) date) unknown) (unknown) (no (unknown) (unknown) 08/21/22] (units (unkn own) date) unknown) (unknown) (no (unknown) (unknown) 11:36 (units (unkno wn) date) unknown) (unknown) (no (unknown) (unknown) [id number] (units (unkno wn) date) unknown) (unknown) (no (unknown) (unknown) ADHD () (units (u nknown) date) unknown) (unknown) (no (unknown) (unknown) Abnormal Pap (units (u nknown) date) smear of cervix unknown) () (unknown) (no (unknown) (unknown) Age/Sex: 41 / F (units (unknown) date) Date of Service: unknown) (unknown) (no (unknown) (unknown) Allergies (units (unkn own) date) () unknown) (unknown) (no (unknown) (unknown) Allergies (units (unkn own) date) unknown) (unknown) (no (unknown) (unknown) [place], [place] (units ( unknown) date) [id number] unknown) (unknown) (no (unknown) (unknown) Anesthesia (units (unk nown) date) unknown) (unknown) (no (unknown) (unknown) Anxiety (-2002) (units (unknown) date) unknown) (unknown) (no (unknown) (unknown) Assessment + (units (u nknown) date) Plan unknown) (unknown) (no (unknown) (unknown) Attending Dr: (units ( unknown) date) Mari DONG unknown) (unknown) (no (unknown) (unknown) BMI 38.2 (units (unkno wn) date) unknown) (unknown) (no (unknown) (unknown) BP 96/62 (units (unkno wn) date) unknown) (unknown) (no (unknown) (unknown) Back pain at (units (u nknown) date) L4-L5 level unknown) () (unknown) (no (unknown) (unknown) Biliary colic (units ( unknown) date) unknown) (unknown) (no (unknown) (unknown) Blood Pressure (units (unknown) date) Location Lt unknown) radial (unknown) (no (unknown) (unknown) Chicken pox (units (un known) date) () unknown) (unknown) (no (unknown) (unknown) Chronic hip (units (un known) date) pain, bilateral unknown) (unknown) (no (unknown) (unknown) Chronic right (units ( unknown) date) hip pain unknown) (unknown) (no (unknown) (unknown) Colon polyps (units (u nknown) date) () unknown) (unknown) (no (unknown) (unknown) Confirmed (units (unkn own) date) 08/21/22] unknown) (unknown) (no (unknown) (unknown) DAILY 08/21/22 (units (unknown) date) [History unknown) Confirmed 08/21/22] (unknown) (no (unknown) (unknown) : 1980 (units (unknown) date) Acct:[id number] unknown) (unknown) (no (unknown) (unknown) Date of Last (units (u nknown) date) Menstrual Period: unknown) 08/10/22 (unknown) (no (unknown) (unknown) Depression (units (unk nown) date) () unknown) (unknown) (no (unknown) (unknown) Dept at (units (unkno wn) date) . unknown) (unknown) (no (unknown) (unknown) Diabetes (units (unkno wn) date) mellitus unknown) (unknown) (no (unknown) (unknown) Diarrhea (units (unkno wn) date) unknown) (unknown) (no (unknown) (unknown) Documented By: (units (unknown) date) Mari Skinner unknown) 08/21/22 1128 (unknown) (no (unknown) (unknown) Draft (units (unkno wn) date) unknown) (unknown) (no (unknown) (unknown) ER F/u, (units (unkno wn) date) discharge from unknown) [facility]. (unknown) (no (unknown) (unknown) Effexor Adverse (units (unknown) date) Reaction (Mild, unknown) Uncoded 08/21/22 11:29) (unknown) (no (unknown) (unknown) Fall (units (unkno wn) date) unknown) (unknown) (no (unknown) (unknown) Family History (units (unknown) date) (Reviewed unknown) 08/10/22 @ 17:32 by IKER Betancourt) (unknown) (no (unknown) (unknown) Father (units (unknown) date) Cancer unknown) (unknown) (no (unknown) (unknown) Fibroids (-2017) (units (unknown) date) unknown) (unknown) (no (unknown) (unknown) Fibromyalgia (units (u nknown) date) unknown) (unknown) (no (unknown) (unknown) [facility] ([facility] unknown) (unknown) (no (unknown) (unknown) Forgetfulness (units ( unknown) date) unknown) (unknown) (no (unknown) (unknown) Grandfather Lung (units (unknown) date) cancer unknown) (unknown) (no (unknown) (unknown) Grandmother (units (un known) date) Cancer unknown) (unknown) (no (unknown) (unknown) Health (units (unkno wn) date) Management unknown) reviewed with patient: Yes (unknown) (no (unknown) (unknown) Health (units (unkno wn) date) Management unknown) (unknown) (no (unknown) (unknown) Heavy menstrual (units (unknown) date) period unknown) (unknown) (no (unknown) (unknown) Height 5 ft 6 in (units (unknown) date) unknown) (unknown) (no (unknown) (unknown) History of (units (unk nown) date) bipolar disorder unknown) (unknown) (no (unknown) (unknown) History of heart (units (unknown) date) disease unknown) (unknown) (no (unknown) (unknown) History of (units (unk nown) date) placement of ear unknown) tubes (-02/08/86) (unknown) (no (unknown) (unknown) History of (units (unk nown) date) recurrent ear unknown) infection (unknown) (no (unknown) (unknown) Hypertension (units (u nknown) date) unknown) (unknown) (no (unknown) (unknown) Intake Note: (units (u nknown) date) unknown) (unknown) (no (unknown) (unknown) Intake performed (units (unknown) date) by: unknown) Marlee Jc (unknown) (no (unknown) (unknown) Intake (units (unkno wn) date) unknown) (unknown) (no (unknown) (unknown) Intake- Clincial (units (unknown) date) Staff unknown) (unknown) (no (unknown) (unknown) Internal (units (unkno wn) date) Medicine Office unknown) Visit (unknown) (no (unknown) (unknown) Is last (units (unkno wn) date) menstrual period unknown) known: Yes (unknown) (no (unknown) (unknown) Last Menstural (units (unknown) date) Cycle + Details unknown) (unknown) (no (unknown) (unknown) Left shoulder (units ( unknown) date) pain unknown) (unknown) (no (unknown) (unknown) Liver cancer (units (u nknown) date) unknown) (unknown) (no (unknown) (unknown) Loc: [facility] (units (unkno wn) date) unknown) (unknown) (no (unknown) (unknown) Medical History (units (unknown) date) (Reviewed unknown) 08/10/22 @ 17:32 by IKER Betancourt) (unknown) (no (unknown) (unknown) Medications (units (un known) date) unknown) (unknown) (no (unknown) (unknown) Medications: (units (u nknown) date) unknown) (unknown) (no (unknown) (unknown) Mental health (units ( unknown) date) problem unknown) (unknown) (no (unknown) (unknown) Migraines (units (unkn own) date) (-1993) unknown) (unknown) (no (unknown) (unknown) Mother (units (unknown) date) Hyperlipidemia unknown) (unknown) (no (unknown) (unknown) Multi Vitamin (units ( unknown) date) 11/04/17 [History unknown) Confirmed 08/01/22] (unknown) (no (unknown) (unknown) Non-healing (units (un known) date) wound unknown) (unknown) (no (unknown) (unknown) Not currently (units ( unknown) date) unknown) (unknown) (no (unknown) (unknown) PFSH (units (unkno wn) date) unknown) (unknown) (no (unknown) (unknown) PO .COMPLEX PRN (units (unknown) date) pain #60 tabs unknown) 08/01/22 [Rx] (unknown) (no (unknown) (unknown) Painful (units (unkno wn) date) menstrual periods unknown) (unknown) (no (unknown) (unknown) Patient: (units (unkno wn) date) Kirsten Deng N unknown) MR#: [id number] (unknown) (no (unknown) (unknown) 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 (unknown) (no (unknown) (unknown) Position Sitting (units (unknown) date) unknown) (unknown) (no (unknown) (unknown) Pulse 78 (units (unkno wn) date) unknown) (unknown) (no (unknown) (unknown) Pulse Oximetry (units (unknown) date) (%) 98 unknown) (unknown) (no (unknown) (unknown) Pulse Source (units (u nknown) date) Monitor unknown) (unknown) (no (unknown) (unknown) Reason For Visit (units (unknown) date) unknown) (unknown) (no (unknown) (unknown) Refilled (units (unkno wn) date) unknown) (unknown) (no (unknown) (unknown) Right shoulder (units (unknown) date) pain unknown) (unknown) (no (unknown) (unknown) Sciatic leg pain (units (unknown) date) unknown) (unknown) (no (unknown) (unknown) Scoliosis (units (unkn own) date) () unknown) (unknown) (no (unknown) (unknown) Signed By: (units (unk nown) date) unknown) (unknown) (no (unknown) (unknown) Skin changes of (units (unknown) date) breasts unknown) (unknown) (no (unknown) (unknown) Smoking Status: (units (unknown) date) Current some day unknown) smoker (unknown) (no (unknown) (unknown) Social History (units (unknown) date) unknown) (unknown) (no (unknown) (unknown) Surgical History (units (unknown) date) (Reviewed unknown) 08/10/22 @ 17:32 by IKER Betancourt) (unknown) (no (unknown) (unknown) This note may (units ( unknown) date) have been all or unknown) partially generated using voice recognition (unknown) (no (unknown) (unknown) Thyroid disease (units (unknown) date) unknown) (unknown) (no (unknown) (unknown) Tobacco + (units (unkn own) date) Substance Use unknown) (unknown) (no (unknown) (unknown) Tobacco Status (units (unknown) date) unknown) (unknown) (no (unknown) (unknown) UTI (urinary (units (u nknown) date) tract infection) unknown) (unknown) (no (unknown) (unknown) Vaginal delivery (units (unknown) date) unknown) (unknown) (no (unknown) (unknown) Visit Reasons: (units (unknown) date) ER follow up 03 unknown) (unknown) (no (unknown) (unknown) Vitals (units (unkno wn) date) unknown) (unknown) (no (unknown) (unknown) Weight 237 lb (units ( unknown) date) unknown) (unknown) (no (unknown) (unknown) alcohol intake: (units (unknown) date) never unknown) (unknown) (no (unknown) (unknown) amoxicillin (units (un known) date) Adverse Reaction unknown) (Verified 08/21/22 11:29) (unknown) (no (unknown) (unknown) butalbital-aceta (units (unknown) date) minophen-caffeine unknown) 50 mg-325 mg-40 mg tablet See Rx Instructions (unknown) (no (unknown) (unknown) dextroamphetamin (units (unknown) date) e-amphetamine ER unknown) 10 mg 24hr capsule,extend release 20 mg PO (unknown) (no (unknown) (unknown) duloxetine 20 mg (units (unknown) date) capsule,delayed unknown) release 20 mg PO DAILY 08/21/22 [History (unknown) (no (unknown) (unknown) gabapentin 100 (units (unknown) date) mg capsule 300 mg unknown) PO TID 08/21/22 [History Confirmed 08/21/22] (unknown) (no (unknown) (unknown) have occurred. (units (unknown) date) If there are any unknown) questions, please contact the Medical Records (unknown) (no (unknown) (unknown) household (units (unkn own) date) members: unknown) significant other and children (unknown) (no (unknown) (unknown) hydroxyzine HCl (units (unknown) date) 50 mg PO QID PRN unknown) 180 tabs 1RF anxiety (unknown) (no (unknown) (unknown) hydroxyzine HCl (units (unknown) date) 50 mg tablet 50 unknown) mg PO QID PRN anxiety #180 tabs 08/21/22 [Rx (unknown) (no (unknown) (unknown) lamotrigine 25 (units (unknown) date) mg tablet 50 mg unknown) PO DAILY 08/21/22 [History Confirmed 08/21/22] (unknown) (no (unknown) (unknown) marital status: (units (unknown) date) unmarried,living unknown) together (unknown) (no (unknown) (unknown) may occur. (units (unk nown) date) Occasional unknown) wrong-word or 'sound-alike' substitutions may have (unknown) (no (unknown) (unknown) occupational (units (u nknown) date) status: employed unknown) (unknown) (no (unknown) (unknown) occurred due to (units (unknown) date) the inherent unknown) limitations of voice recognition software. Please (unknown) (no (unknown) (unknown) quetiapine 100 (units (unknown) date) mg PO .q 6 hours unknown) 180 tabs 1RF (unknown) (no (unknown) (unknown) quetiapine 100 (units (unknown) date) mg tablet 100 mg unknown) PO .q 6 hours #180 tabs 08/21/22 [Rx Confirmed (unknown) (no (unknown) (unknown) read the note (units ( unknown) date) carefully and unknown) recognize, using context, where these substitutions (unknown) (no (unknown) (unknown) software. (units (unkn own) date) Although every unknown) effort is made to edit content, cathode builder errors (unknown) (no (unknown) (unknown) substance use (units ( unknown) date) type: does not unknown) use (unknown) (no (unknown) (unknown) trazodone 100 mg (units (unknown) date) tablet 100 mg PO unknown) BEDTIME 08/21/22 [History Confirmed 08/21/22] (unknown) (no (unknown) (unknown) valacyclovir 500 (units (unknown) date) mg tablet 500 mg unknown) PO BID 08/21/22 [History Confirmed 08/21/22] Result panel 117 (unknown) (no (unknown) (unknown) (no value) (units (unk nown) date) unknown) (unknown) (no (unknown) (unknown) 08/21/22 (units (unkno wn) date) unknown) (unknown) (no (unknown) (unknown) 08/21/22] (units (unkn own) date) unknown) (unknown) (no (unknown) (unknown) 11:36 (units (unkno wn) date) unknown) (unknown) (no (unknown) (unknown) [id number] (units (unkno wn) date) unknown) (unknown) (no (unknown) (unknown) 08/15/22. (units (unkno wn) date) unknown) (unknown) (no (unknown) (unknown) 41F with PMH (units (u nknown) date) recent unknown) hospitalization for her severe depression and feelings of (unknown) (no (unknown) (unknown) ADHD () (units (u nknown) date) unknown) (unknown) (no (unknown) (unknown) Abnormal Pap (units (u nknown) date) smear of cervix unknown) () (unknown) (no (unknown) (unknown) Age/Sex: 41 / F (units (unknown) date) Date of Service: unknown) (unknown) (no (unknown) (unknown) Allergies () (units (unknown) date) unknown) (unknown) (no (unknown) (unknown) Allergies (units (unkn own) date) unknown) (unknown) (no (unknown) (unknown) [place], [place] (units ( unknown) date) [id number] unknown) (unknown) (no (unknown) (unknown) Anesthesia (units (unk nown) date) unknown) (unknown) (no (unknown) (unknown) Anxiety (-2002) (units (unknown) date) unknown) (unknown) (no (unknown) (unknown) Assessment + Plan (units (unknown) date) unknown) (unknown) (no (unknown) (unknown) Attending Dr: (units ( unknown) date) Mari DONG unknown) (unknown) (no (unknown) (unknown) BMI 38.2 (units (unkno wn) date) unknown) (unknown) (no (unknown) (unknown) BP 96/62 (units (unkno wn) date) unknown) (unknown) (no (unknown) (unknown) Back pain at (units (u nknown) date) L4-L5 level unknown) (-2014) (unknown) (no (unknown) (unknown) Biliary colic (units ( unknown) date) unknown) (unknown) (no (unknown) (unknown) Blood Pressure (units (unknown) date) Location Lt radial unknown) (unknown) (no (unknown) (unknown) Chicken pox (units (un known) date) () unknown) (unknown) (no (unknown) (unknown) Chief Complaint (units (unknown) date) unknown) (unknown) (no (unknown) (unknown) Chief Complaint: (units (unknown) date) f/up unknown) hospitalization for suicide attempt (unknown) (no (unknown) (unknown) Chronic hip pain, (units (unknown) date) bilateral unknown) (unknown) (no (unknown) (unknown) Chronic right hip (units (unknown) date) pain unknown) (unknown) (no (unknown) (unknown) Colon polyps (units (u nknown) date) () unknown) (unknown) (no (unknown) (unknown) Confirmed (units (unkn own) date) 08/21/22] unknown) (unknown) (no (unknown) (unknown) DAILY 08/21/22 (units (unknown) date) [History Confirmed unknown) 08/21/22] (unknown) (no (unknown) (unknown) : 1980 (units (unknown) date) Acct:[id number] unknown) (unknown) (no (unknown) (unknown) Date of Last (units (u nknown) date) Menstrual Period: unknown) 08/10/22 (unknown) (no (unknown) (unknown) Depression (units (unk nown) date) (-2002) unknown) (unknown) (no (unknown) (unknown) Dept at (units (unkno wn) date) . unknown) (unknown) (no (unknown) (unknown) Details: (units (unkno wn) date) unknown) (unknown) (no (unknown) (unknown) Diabetes mellitus (units (unknown) date) unknown) (unknown) (no (unknown) (unknown) Diarrhea (units (unkno wn) date) unknown) (unknown) (no (unknown) (unknown) Documented By: (units (unknown) date) Mari Skinner unknown) 08/21/22 1128 (unknown) (no (unknown) (unknown) Draft (units (unkno wn) date) unknown) (unknown) (no (unknown) (unknown) ER F/u suicidal (units (unknown) date) ideation, unknown) discharge from [facility]. Pt states 'she is having (unknown) (no (unknown) (unknown) Effexor Adverse (units (unknown) date) Reaction (Mild, unknown) Uncoded 08/21/22 11:29) (unknown) (no (unknown) (unknown) Fall (units (unkno wn) date) unknown) (unknown) (no (unknown) (unknown) Family History (units (unknown) date) (Reviewed 08/10/22 unknown) @ 17:32 by IKER Betancourt) (unknown) (no (unknown) (unknown) Father (units (unknown) date) Cancer unknown) (unknown) (no (unknown) (unknown) Fibroids (-2017) (units (unknown) date) unknown) (unknown) (no (unknown) (unknown) Fibromyalgia (units (u nknown) date) unknown) (unknown) (no (unknown) (unknown) [facility] ([facility] ([facility] date[facility] unknown) (unknown) (no (unknown) (unknown) Forgetfulness (units ( unknown) date) unknown) (unknown) (no (unknown) (unknown) Grandfather Lung (units (unknown) date) cancer unknown) (unknown) (no (unknown) (unknown) Grandmother (units (un known) date) Cancer unknown) (unknown) (no (unknown) (unknown) HPI (units (unkno wn) date) unknown) (unknown) (no (unknown) (unknown) Health Management (units (unknown) date) reviewed with unknown) patient: Yes (unknown) (no (unknown) (unknown) Health Management (units (unknown) date) unknown) (unknown) (no (unknown) (unknown) Heavy menstrual (units (unknown) date) period unknown) (unknown) (no (unknown) (unknown) Height 5 ft 6 in (units (unknown) date) unknown) (unknown) (no (unknown) (unknown) History of (units (unk nown) date) bipolar disorder unknown) (unknown) (no (unknown) (unknown) History of heart (units (unknown) date) disease unknown) (unknown) (no (unknown) (unknown) History of (units (unk nown) date) placement of ear unknown) tubes (-02/08/86) (unknown) (no (unknown) (unknown) History of (units (unk nown) date) recurrent ear unknown) infection (unknown) (no (unknown) (unknown) Hypertension (units (u nknown) date) unknown) (unknown) (no (unknown) (unknown) Intake Note: (units (u nknown) date) unknown) (unknown) (no (unknown) (unknown) Intake performed (units (unknown) date) by: unknown) Marlee Jc (unknown) (no (unknown) (unknown) Intake (units (unkno wn) date) unknown) (unknown) (no (unknown) (unknown) Intake- Clincial (units (unknown) date) Staff unknown) (unknown) (no (unknown) (unknown) Internal Medicine (units (unknown) date) Office Visit unknown) (unknown) (no (unknown) (unknown) Is last menstrual (units (unknown) date) period known: Yes unknown) (unknown) (no (unknown) (unknown) Last Menstural (units (unknown) date) Cycle + Details unknown) (unknown) (no (unknown) (unknown) Left shoulder (units ( unknown) date) pain unknown) (unknown) (no (unknown) (unknown) Liver cancer (units (u nknown) date) unknown) (unknown) (no (unknown) (unknown) Loc: [facility] (units (unkno wn) date) unknown) (unknown) (no (unknown) (unknown) Medical History (units (unknown) date) (Reviewed 08/10/22 unknown) @ 17:32 by IKER Betancourt) (unknown) (no (unknown) (unknown) Medications (units (un known) date) unknown) (unknown) (no (unknown) (unknown) Medications: (units (u nknown) date) unknown) (unknown) (no (unknown) (unknown) Mental health (units ( unknown) date) problem unknown) (unknown) (no (unknown) (unknown) Migraines (-1993) (units (unknown) date) unknown) (unknown) (no (unknown) (unknown) Mother (units (unknown) date) Hyperlipidemia unknown) (unknown) (no (unknown) (unknown) Multi Vitamin (units ( unknown) date) 11/04/17 [History unknown) Confirmed 08/01/22] (unknown) (no (unknown) (unknown) Non-healing wound (units (unknown) date) unknown) (unknown) (no (unknown) (unknown) Not currently (units ( unknown) date) unknown) (unknown) (no (unknown) (unknown) PFSH (units (unkno wn) date) unknown) (unknown) (no (unknown) (unknown) PO .COMPLEX PRN (units (unknown) date) pain #60 tabs unknown) 08/01/22 [Rx] (unknown) (no (unknown) (unknown) Painful menstrual (units (unknown) date) periods unknown) (unknown) (no (unknown) (unknown) Patient: (units (unkno wn) date) Kirsten Deng N unknown) MR#: [id number] (unknown) (no (unknown) (unknown) 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 (unknown) (no (unknown) (unknown) Position Sitting (units (unknown) date) unknown) (unknown) (no (unknown) (unknown) Pulse 78 (units (unkno wn) date) unknown) (unknown) (no (unknown) (unknown) Pulse Oximetry (units (unknown) date) (%) 98 unknown) (unknown) (no (unknown) (unknown) Pulse Source (units (u nknown) date) Monitor unknown) (unknown) (no (unknown) (unknown) Reason For Visit (units (unknown) date) unknown) (unknown) (no (unknown) (unknown) Refilled (units (unkno wn) date) unknown) (unknown) (no (unknown) (unknown) Right shoulder (units (unknown) date) pain unknown) (unknown) (no (unknown) (unknown) Sciatic leg pain (units (unknown) date) unknown) (unknown) (no (unknown) (unknown) Scoliosis (-1989) (units (unknown) date) unknown) (unknown) (no (unknown) (unknown) Signed By: (units (unk nown) date) unknown) (unknown) (no (unknown) (unknown) Skin changes of (units (unknown) date) breasts unknown) (unknown) (no (unknown) (unknown) Smoking Status: (units (unknown) date) Current some day unknown) smoker (unknown) (no (unknown) (unknown) Social History (units (unknown) date) unknown) (unknown) (no (unknown) (unknown) Surgical History (units (unknown) date) (Reviewed 08/10/22 unknown) @ 17:32 by IKER Betancourt) (unknown) (no (unknown) (unknown) This note may (units ( unknown) date) have been all or unknown) partially generated using voice recognition (unknown) (no (unknown) (unknown) Thyroid disease (units (unknown) date) unknown) (unknown) (no (unknown) (unknown) Tobacco + (units (unkn own) date) Substance Use unknown) (unknown) (no (unknown) (unknown) Tobacco Status (units (unknown) date) unknown) (unknown) (no (unknown) (unknown) UTI (urinary (units (u nknown) date) tract infection) unknown) (unknown) (no (unknown) (unknown) Vaginal delivery (units (unknown) date) unknown) (unknown) (no (unknown) (unknown) Visit Reasons: ER (units (unknown) date) follow up 03 unknown) (unknown) (no (unknown) (unknown) Vitals (units (unkno wn) date) unknown) (unknown) (no (unknown) (unknown) Weight 237 lb (units ( unknown) date) unknown) (unknown) (no (unknown) (unknown) alcohol intake: (units (unknown) date) never unknown) (unknown) (no (unknown) (unknown) amoxicillin (units (un known) date) Adverse Reaction unknown) (Verified 08/21/22 11:29) (unknown) (no (unknown) (unknown) an appt with (units (u nknown) date) Behavioral Health unknown) 09/13/22. (unknown) (no (unknown) (unknown) butalbital-acetam (units (unknown) date) inophen-caffeine unknown) 50 mg-325 mg-40 mg tablet See Rx Instructions (unknown) (no (unknown) (unknown) dextroamphetamine (units (unknown) date) -amphetamine ER 10 unknown) mg 24hr capsule,extend release 20 mg PO (unknown) (no (unknown) (unknown) difficulty (units (unkn own) date) integrating back unknown) into society' after being institutionalized. She has (unknown) (no (unknown) (unknown) duloxetine 20 mg (units (unknown) date) capsule,delayed unknown) release 20 mg PO DAILY 08/21/22 [History (unknown) (no (unknown) (unknown) gabapentin 100 mg (units (unknown) date) capsule 300 mg PO unknown) TID 08/21/22 [History Confirmed 08/21/22] (unknown) (no (unknown) (unknown) have occurred. If (units (unknown) date) there are any unknown) questions, please contact the Medical Records (unknown) (no (unknown) (unknown) household (units (unkn own) date) members: unknown) significant other and children (unknown) (no (unknown) (unknown) hydroxyzine HCl (units (unknown) date) 50 mg PO QID PRN unknown) 180 tabs 1RF anxiety (unknown) (no (unknown) (unknown) hydroxyzine HCl (units (unknown) date) 50 mg tablet 50 mg unknown) PO QID PRN anxiety #180 tabs 08/21/22 [Rx (unknown) (no (unknown) (unknown) lamotrigine 25 mg (units (unknown) date) tablet 50 mg PO unknown) DAILY 08/21/22 [History Confirmed 08/21/22] (unknown) (no (unknown) (unknown) marital status: (units (unknown) date) unmarried,living unknown) together (unknown) (no (unknown) (unknown) may occur. (units (unk nown) date) Occasional unknown) wrong-word or 'sound-alike' substitutions may have (unknown) (no (unknown) (unknown) occupational (units (u nknown) date) status: employed unknown) (unknown) (no (unknown) (unknown) occurred due to (units (unknown) date) the inherent unknown) limitations of voice recognition software. Please (unknown) (no (unknown) (unknown) of following (units (u nknown) date) through on her unknown) plan to take all of her medications at one time, so (unknown) (no (unknown) (unknown) quetiapine 100 mg (units (unknown) date) PO .q 6 hours 180 unknown) tabs 1RF (unknown) (no (unknown) (unknown) quetiapine 100 mg (units (unknown) date) tablet 100 mg PO unknown) .q 6 hours #180 tabs 08/21/22 [Rx Confirmed (unknown) (no (unknown) (unknown) read the note (units ( unknown) date) carefully and unknown) recognize, using context, where these substitutions (unknown) (no (unknown) (unknown) she called 911 (units (unknown) date) and was unknown) hospitalized at [facility] from 3/3 at midnight until 10am (unknown) (no (unknown) (unknown) software. (units (unkn own) date) Although every unknown) effort is made to edit content, cathode builder errors (unknown) (no (unknown) (unknown) substance use (units ( unknown) date) type: does not use unknown) (unknown) (no (unknown) (unknown) suicidality. She (units (unknown) date) had a plan. Her 17 unknown) year old daughter was at home and instead (unknown) (no (unknown) (unknown) trazodone 100 mg (units (unknown) date) tablet 100 mg PO unknown) BEDTIME 08/21/22 [History Confirmed 08/21/22] (unknown) (no (unknown) (unknown) valacyclovir 500 (units (unknown) date) mg tablet 500 mg unknown) PO BID 08/21/22 [History Confirmed 08/21/22] Result panel 118 (unknown) (no (unknown) (unknown) (no value) (units (unk nown) date) unknown) (unknown) (no (unknown) (unknown) 08/21/22 (units (unkno wn) date) unknown) (unknown) (no (unknown) (unknown) 08/21/22] (units (unkn own) date) unknown) (unknown) (no (unknown) (unknown) 11:36 (units (unkno wn) date) unknown) (unknown) (no (unknown) (unknown) [id number] (units (unkno wn) date) unknown) (unknown) (no (unknown) (unknown) 08/15/22. She was (units (unknown) date) prescribed unknown) Seroquel and Hydroxyzine for as needed use during her (unknown) (no (unknown) (unknown) 41F with PMH (units (u nknown) date) recent unknown) hospitalization for her severe depression and feelings of (unknown) (no (unknown) (unknown) ADHD () (units (u nknown) date) unknown) (unknown) (no (unknown) (unknown) Abnormal Pap (units (u nknown) date) smear of cervix unknown) (-2017) (unknown) (no (unknown) (unknown) Age/Sex: 41 / F (units (unknown) date) Date of Service: unknown) (unknown) (no (unknown) (unknown) Allergies (-1988) (units (unknown) date) unknown) (unknown) (no (unknown) (unknown) Allergies (units (unkn own) date) unknown) (unknown) (no (unknown) (unknown) [place], [place] (units ( unknown) date) [id number] unknown) (unknown) (no (unknown) (unknown) Anesthesia (units (unk nown) date) unknown) (unknown) (no (unknown) (unknown) Anxiety (-2002) (units (unknown) date) unknown) (unknown) (no (unknown) (unknown) Assessment + Plan (units (unknown) date) unknown) (unknown) (no (unknown) (unknown) Attending Dr: (units ( unknown) date) Mari DONG unknown) (unknown) (no (unknown) (unknown) BMI 38.2 (units (unkno wn) date) unknown) (unknown) (no (unknown) (unknown) BP 96/62 (units (unkno wn) date) unknown) (unknown) (no (unknown) (unknown) Back pain at (units (u nknown) date) L4-L5 level unknown) (-2014) (unknown) (no (unknown) (unknown) Biliary colic (units ( unknown) date) unknown) (unknown) (no (unknown) (unknown) Blood Pressure (units (unknown) date) Location Lt radial unknown) (unknown) (no (unknown) (unknown) Chicken pox (units (un known) date) () unknown) (unknown) (no (unknown) (unknown) Chief Complaint (units (unknown) date) unknown) (unknown) (no (unknown) (unknown) Chief Complaint: (units (unknown) date) f/up unknown) hospitalization for suicide attempt (unknown) (no (unknown) (unknown) Chronic hip pain, (units (unknown) date) bilateral unknown) (unknown) (no (unknown) (unknown) Chronic right hip (units (unknown) date) pain unknown) (unknown) (no (unknown) (unknown) Colon polyps (units (u nknown) date) () unknown) (unknown) (no (unknown) (unknown) Confirmed (units (unkn own) date) 08/21/22] unknown) (unknown) (no (unknown) (unknown) DAILY 08/21/22 (units (unknown) date) [History Confirmed unknown) 08/21/22] (unknown) (no (unknown) (unknown) : 1980 (units (unknown) date) Acct:[id number] unknown) (unknown) (no (unknown) (unknown) Date of Last (units (u nknown) date) Menstrual Period: unknown) 08/10/22 (unknown) (no (unknown) (unknown) Denies SI today. (units (unknown) date) unknown) (unknown) (no (unknown) (unknown) Depression (units (unk nown) date) () unknown) (unknown) (no (unknown) (unknown) Dept at (units (unkno wn) date) . unknown) (unknown) (no (unknown) (unknown) Details: (units (unkno wn) date) unknown) (unknown) (no (unknown) (unknown) Diabetes mellitus (units (unknown) date) unknown) (unknown) (no (unknown) (unknown) Diarrhea (units (unkno wn) date) unknown) (unknown) (no (unknown) (unknown) Documented By: (units (unknown) date) Mari Skinner unknown) 08/21/22 1128 (unknown) (no (unknown) (unknown) Draft (units (unkno wn) date) unknown) (unknown) (no (unknown) (unknown) ER F/u suicidal (units (unknown) date) ideation, unknown) discharge from [facility]. Pt states 'she is having (unknown) (no (unknown) (unknown) Effexor Adverse (units (unknown) date) Reaction (Mild, unknown) Uncoded 08/21/22 11:29) (unknown) (no (unknown) (unknown) Fall (units (unkno wn) date) unknown) (unknown) (no (unknown) (unknown) Family History (units (unknown) date) (Reviewed 08/10/22 unknown) @ 17:32 by IKER Betancourt) (unknown) (no (unknown) (unknown) Father (units (unknown) date) Cancer unknown) (unknown) (no (unknown) (unknown) Fibroids (-2018) (units (unknown) date) unknown) (unknown) (no (unknown) (unknown) Fibromyalgia (units (u nknown) date) unknown) (unknown) (no (unknown) (unknown) [facility] ([facility] unknown) (unknown) (no (unknown) (unknown) Forgetfulness (units ( unknown) date) unknown) (unknown) (no (unknown) (unknown) Grandfather Lung (units (unknown) date) cancer unknown) (unknown) (no (unknown) (unknown) Grandmother (units (un known) date) Cancer unknown) (unknown) (no (unknown) (unknown) HPI (units (unkno wn) date) unknown) (unknown) (no (unknown) (unknown) Health Management (units (unknown) date) reviewed with unknown) patient: Yes (unknown) (no (unknown) (unknown) Health Management (units (unknown) date) unknown) (unknown) (no (unknown) (unknown) Heavy menstrual (units (unknown) date) period unknown) (unknown) (no (unknown) (unknown) Height 5 ft 6 in (units (unknown) date) unknown) (unknown) (no (unknown) (unknown) History of (units (unk nown) date) bipolar disorder unknown) (unknown) (no (unknown) (unknown) History of heart (units (unknown) date) disease unknown) (unknown) (no (unknown) (unknown) History of (units (unk nown) date) placement of ear unknown) tubes (-02/08/86) (unknown) (no (unknown) (unknown) History of (units (unk nown) date) recurrent ear unknown) infection (unknown) (no (unknown) (unknown) Hypertension (units (u nknown) date) unknown) (unknown) (no (unknown) (unknown) Intake Note: (units (u nknown) date) unknown) (unknown) (no (unknown) (unknown) Intake performed (units (unknown) date) by: unknown) Marlee Jc (unknown) (no (unknown) (unknown) Intake (units (unkno wn) date) unknown) (unknown) (no (unknown) (unknown) Intake- Clincial (units (unknown) date) Staff unknown) (unknown) (no (unknown) (unknown) Internal Medicine (units (unknown) date) Office Visit unknown) (unknown) (no (unknown) (unknown) Is last menstrual (units (unknown) date) period known: Yes unknown) (unknown) (no (unknown) (unknown) Last Menstural (units (unknown) date) Cycle + Details unknown) (unknown) (no (unknown) (unknown) Left shoulder (units ( unknown) date) pain unknown) (unknown) (no (unknown) (unknown) Liver cancer (units (u nknown) date) unknown) (unknown) (no (unknown) (unknown) Loc: [facility] (units (unkno wn) date) unknown) (unknown) (no (unknown) (unknown) Medical History (units (unknown) date) (Reviewed 08/10/22 unknown) @ 17:32 by IKER Betancourt) (unknown) (no (unknown) (unknown) Medications (units (un known) date) unknown) (unknown) (no (unknown) (unknown) Medications: (units (u nknown) date) unknown) (unknown) (no (unknown) (unknown) Mental health (units ( unknown) date) problem unknown) (unknown) (no (unknown) (unknown) Migraines (-1993) (units (unknown) date) unknown) (unknown) (no (unknown) (unknown) Mother (units (unknown) date) Hyperlipidemia unknown) (unknown) (no (unknown) (unknown) Multi Vitamin (units ( unknown) date) 11/04/17 [History unknown) Confirmed 08/01/22] (unknown) (no (unknown) (unknown) Non-healing wound (units (unknown) date) unknown) (unknown) (no (unknown) (unknown) Not currently (units ( unknown) date) unknown) (unknown) (no (unknown) (unknown) PFSH (units (unkno wn) date) unknown) (unknown) (no (unknown) (unknown) PO .COMPLEX PRN (units (unknown) date) pain #60 tabs unknown) 08/01/22 [Rx] (unknown) (no (unknown) (unknown) Painful menstrual (units (unknown) date) periods unknown) (unknown) (no (unknown) (unknown) Patient: (units (unkno wn) date) Kirsten Deng N unknown) MR#: [id number] (unknown) (no (unknown) (unknown) 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 (unknown) (no (unknown) (unknown) Position Sitting (units (unknown) date) unknown) (unknown) (no (unknown) (unknown) Pulse 78 (units (unkno wn) date) unknown) (unknown) (no (unknown) (unknown) Pulse Oximetry (units (unknown) date) (%) 98 unknown) (unknown) (no (unknown) (unknown) Pulse Source (units (u nknown) date) Monitor unknown) (unknown) (no (unknown) (unknown) Reason For Visit (units (unknown) date) unknown) (unknown) (no (unknown) (unknown) Refilled (units (unkno wn) date) unknown) (unknown) (no (unknown) (unknown) Right shoulder (units (unknown) date) pain unknown) (unknown) (no (unknown) (unknown) Sciatic leg pain (units (unknown) date) unknown) (unknown) (no (unknown) (unknown) Scoliosis (-1989) (units (unknown) date) unknown) (unknown) (no (unknown) (unknown) She is wondering (units (unknown) date) if she can get unknown) 40mg of Adderall. (unknown) (no (unknown) (unknown) Signed By: (units (unk nown) date) unknown) (unknown) (no (unknown) (unknown) Skin changes of (units (unknown) date) breasts unknown) (unknown) (no (unknown) (unknown) Smoking Status: (units (unknown) date) Current some day unknown) smoker (unknown) (no (unknown) (unknown) Social History (units (unknown) date) unknown) (unknown) (no (unknown) (unknown) Surgical History (units (unknown) date) (Reviewed 08/10/22 unknown) @ 17:32 by IKER Betancourt) (unknown) (no (unknown) (unknown) This note may (units ( unknown) date) have been all or unknown) partially generated using voice recognition (unknown) (no (unknown) (unknown) Thyroid disease (units (unknown) date) unknown) (unknown) (no (unknown) (unknown) Tobacco + (units (unkn own) date) Substance Use unknown) (unknown) (no (unknown) (unknown) Tobacco Status (units (unknown) date) unknown) (unknown) (no (unknown) (unknown) UTI (urinary (units (u nknown) date) tract infection) unknown) (unknown) (no (unknown) (unknown) Vaginal delivery (units (unknown) date) unknown) (unknown) (no (unknown) (unknown) Visit Reasons: ER (units (unknown) date) follow up 03 unknown) (unknown) (no (unknown) (unknown) Vitals (units (unkno wn) date) unknown) (unknown) (no (unknown) (unknown) Weight 237 lb (units ( unknown) date) unknown) (unknown) (no (unknown) (unknown) Wondering if (units (u nknown) date) Lamotragine, she unknown) is taking 2 - 25mg / day. Wondering if this can (unknown) (no (unknown) (unknown) Would like to (units ( unknown) date) discuss her unknown) Adderall, this was decreased to 20mg. (unknown) (no (unknown) (unknown) alcohol intake: (units (unknown) date) never unknown) (unknown) (no (unknown) (unknown) amoxicillin (units (un known) date) Adverse Reaction unknown) (Verified 08/21/22 11:29) (unknown) (no (unknown) (unknown) an appt with (units (u nknown) date) Behavioral Health unknown) 09/13/22. (unknown) (no (unknown) (unknown) at this time is (units (unknown) date) 'dealing with unknown) everyone else,' since her hospitalization. (unknown) (no (unknown) (unknown) be increased. She (units (unknown) date) is willing to try unknown) 100mg/day. (unknown) (no (unknown) (unknown) but Seroquel still (units (unknown) date) at pharmacy. These unknown) meds help. Reports that her greatest issue (unknown) (no (unknown) (unknown) butalbital-acetam (units (unknown) date) inophen-caffeine unknown) 50 mg-325 mg-40 mg tablet See Rx Instructions (unknown) (no (unknown) (unknown) dextroamphetamine (units (unknown) date) -amphetamine ER 10 unknown) mg 24hr capsule,extend release 20 mg PO (unknown) (no (unknown) (unknown) difficulty (units (unkn own) date) integrating back unknown) into society' after being institutionalized. She has (unknown) (no (unknown) (unknown) duloxetine 20 mg (units (unknown) date) capsule,delayed unknown) release 20 mg PO DAILY 08/21/22 [History (unknown) (no (unknown) (unknown) gabapentin 100 mg (units (unknown) date) capsule 300 mg PO unknown) TID 08/21/22 [History Confirmed 08/21/22] (unknown) (no (unknown) (unknown) have occurred. If (units (unknown) date) there are any unknown) questions, please contact the Medical Records (unknown) (no (unknown) (unknown) hospitalization (units (unknown) date) and for use upon unknown) d/c, has been able to fern picker the Hydroxyzine (unknown) (no (unknown) (unknown) household (units (unkn own) date) members: unknown) significant other and children (unknown) (no (unknown) (unknown) hydroxyzine HCl (units (unknown) date) 50 mg PO QID PRN unknown) 180 tabs 1RF anxiety (unknown) (no (unknown) (unknown) hydroxyzine HCl (units (unknown) date) 50 mg tablet 50 mg unknown) PO QID PRN anxiety #180 tabs 08/21/22 [Rx (unknown) (no (unknown) (unknown) lamotrigine 25 mg (units (unknown) date) tablet 50 mg PO unknown) DAILY 08/21/22 [History Confirmed 08/21/22] (unknown) (no (unknown) (unknown) marital status: (units (unknown) date) unmarried,living unknown) together (unknown) (no (unknown) (unknown) may occur. (units (unk nown) date) Occasional unknown) wrong-word or 'sound-alike' substitutions may have (unknown) (no (unknown) (unknown) occupational (units (u nknown) date) status: employed unknown) (unknown) (no (unknown) (unknown) occurred due to (units (unknown) date) the inherent unknown) limitations of voice recognition software. Please (unknown) (no (unknown) (unknown) of following (units (u nknown) date) through on her unknown) plan to take all of her medications at one time, so (unknown) (no (unknown) (unknown) quetiapine 100 mg (units (unknown) date) PO .q 6 hours 180 unknown) tabs 1RF (unknown) (no (unknown) (unknown) quetiapine 100 mg (units (unknown) date) tablet 100 mg PO unknown) .q 6 hours #180 tabs 08/21/22 [Rx Confirmed (unknown) (no (unknown) (unknown) read the note (units ( unknown) date) carefully and unknown) recognize, using context, where these substitutions (unknown) (no (unknown) (unknown) she called 911 (units (unknown) date) and was unknown) hospitalized at [facility] from 3/3 at midnight until 10am (unknown) (no (unknown) (unknown) software. (units (unkn own) date) Although every unknown) effort is made to edit content, cathode builder errors (unknown) (no (unknown) (unknown) substance use (units ( unknown) date) type: does not use unknown) (unknown) (no (unknown) (unknown) suicidality. She (units (unknown) date) had a plan. Her 17 unknown) year old daughter was at home and instead (unknown) (no (unknown) (unknown) trazodone 100 mg (units (unknown) date) tablet 100 mg PO unknown) BEDTIME 08/21/22 [History Confirmed 08/21/22] (unknown) (no (unknown) (unknown) valacyclovir 500 (units (unknown) date) mg tablet 500 mg unknown) PO BID 08/21/22 [History Confirmed 08/21/22] Result panel 119 (unknown) (no (unknown) (unknown) (no value) (units (unk nown) date) unknown) (unknown) (no (unknown) (unknown) (1) Depression: (units (unknown) date) unknown) (unknown) (no (unknown) (unknown) 08/21/22 (units (unkno wn) date) unknown) (unknown) (no (unknown) (unknown) 08/21/22] (units (unkn own) date) unknown) (unknown) (no (unknown) (unknown) 11:36 (units (unkno wn) date) unknown) (unknown) (no (unknown) (unknown) [id number] (units (unkno wn) date) unknown) (unknown) (no (unknown) (unknown) 08/15/22. She was (units (unknown) date) prescribed unknown) Seroquel and Hydroxyzine for as needed use during her (unknown) (no (unknown) (unknown) 41F with PMH (units (u nknown) date) recent unknown) hospitalization for her severe depression and feelings of (unknown) (no (unknown) (unknown) ADHD () (units (u nknown) date) unknown) (unknown) (no (unknown) (unknown) Abnormal Pap (units (u nknown) date) smear of cervix unknown) () (unknown) (no (unknown) (unknown) Age/Sex: 41 / F (units (unknown) date) Date of Service: unknown) (unknown) (no (unknown) (unknown) Allergies (-1988) (units (unknown) date) unknown) (unknown) (no (unknown) (unknown) Allergies (units (unkn own) date) unknown) (unknown) (no (unknown) (unknown) [place], [place] (units ( unknown) date) [id number] unknown) (unknown) (no (unknown) (unknown) Anesthesia (units (unk nown) date) unknown) (unknown) (no (unknown) (unknown) Anxiety (-2002) (units (unknown) date) unknown) (unknown) (no (unknown) (unknown) Assessment + Plan (units (unknown) date) unknown) (unknown) (no (unknown) (unknown) Attending Dr: (units ( unknown) date) Mari DONG unknown) (unknown) (no (unknown) (unknown) BMI 38.2 (units (unkno wn) date) unknown) (unknown) (no (unknown) (unknown) BP 96/62 (units (unkno wn) date) unknown) (unknown) (no (unknown) (unknown) Back pain at (units (u nknown) date) L4-L5 level unknown) () (unknown) (no (unknown) (unknown) Biliary colic (units ( unknown) date) unknown) (unknown) (no (unknown) (unknown) Blood Pressure (units (unknown) date) Location Lt radial unknown) (unknown) (no (unknown) (unknown) Chicken pox (units (un known) date) () unknown) (unknown) (no (unknown) (unknown) Chief Complaint (units (unknown) date) unknown) (unknown) (no (unknown) (unknown) Chief Complaint: (units (unknown) date) f/up unknown) hospitalization for suicide attempt (unknown) (no (unknown) (unknown) Chronic hip pain, (units (unknown) date) bilateral unknown) (unknown) (no (unknown) (unknown) Chronic right hip (units (unknown) date) pain unknown) (unknown) (no (unknown) (unknown) Colon polyps (units (u nknown) date) () unknown) (unknown) (no (unknown) (unknown) Confirmed (units (unkn own) date) 08/21/22] unknown) (unknown) (no (unknown) (unknown) DAILY 08/21/22 (units (unknown) date) [History Confirmed unknown) 08/21/22] (unknown) (no (unknown) (unknown) : 1980 (units (unknown) date) Acct:[id number] unknown) (unknown) (no (unknown) (unknown) Date of Last (units (u nknown) date) Menstrual Period: unknown) 08/10/22 (unknown) (no (unknown) (unknown) Denies SI today. (units (unknown) date) unknown) (unknown) (no (unknown) (unknown) Depression (units (unk nown) date) () unknown) (unknown) (no (unknown) (unknown) Depression Type: (units (unknown) date) unspecified unknown) Qualified Code(s): F32.A - Depression, (unknown) (no (unknown) (unknown) Dept at (units (unkno wn) date) . unknown) (unknown) (no (unknown) (unknown) Details: (units (unkno wn) date) unknown) (unknown) (no (unknown) (unknown) Diabetes mellitus (units (unknown) date) unknown) (unknown) (no (unknown) (unknown) Diarrhea (units (unkno wn) date) unknown) (unknown) (no (unknown) (unknown) Discontinued (units (u nknown) date) Reason: Dose unknown) Change 50 mg PO DAILY (unknown) (no (unknown) (unknown) Discontinued (units (u nknown) date) Reason: Provider's unknown) Order 300 mg PO TID (unknown) (no (unknown) (unknown) Discontinued (units (u nknown) date) unknown) (unknown) (no (unknown) (unknown) Documented By: (units (unknown) date) Mari Skinner unknown) 08/21/22 1128 (unknown) (no (unknown) (unknown) Draft (units (unkno wn) date) unknown) (unknown) (no (unknown) (unknown) ER F/u suicidal (units (unknown) date) ideation, unknown) discharge from [facility]. Pt states 'she is having (unknown) (no (unknown) (unknown) Effexor Adverse (units (unknown) date) Reaction (Mild, unknown) Uncoded 08/21/22 11:29) (unknown) (no (unknown) (unknown) Fall (units (unkno wn) date) unknown) (unknown) (no (unknown) (unknown) Family History (units (unknown) date) (Reviewed 08/10/22 unknown) @ 17:32 by IKER Betancourt) (unknown) (no (unknown) (unknown) Father (units (unknown) date) Cancer unknown) (unknown) (no (unknown) (unknown) Fibroids (-2018) (units (unknown) date) unknown) (unknown) (no (unknown) (unknown) Fibromyalgia (units (u nknown) date) unknown) (unknown) (no (unknown) (unknown) [facility] ([facility] date[facility] unknown) (unknown) (no (unknown) (unknown) Forgetfulness (units ( unknown) date) unknown) (unknown) (no (unknown) (unknown) Grandfather Lung (units (unknown) date) cancer unknown) (unknown) (no (unknown) (unknown) Grandmother (units (un known) date) Cancer unknown) (unknown) (no (unknown) (unknown) HPI (units (unkno wn) date) unknown) (unknown) (no (unknown) (unknown) Health Management (units (unknown) date) reviewed with unknown) patient: Yes (unknown) (no (unknown) (unknown) Health Management (units (unknown) date) unknown) (unknown) (no (unknown) (unknown) Heavy menstrual (units (unknown) date) period unknown) (unknown) (no (unknown) (unknown) Height 5 ft 6 in (units (unknown) date) unknown) (unknown) (no (unknown) (unknown) History of (units (unk nown) date) bipolar disorder unknown) (unknown) (no (unknown) (unknown) History of heart (units (unknown) date) disease unknown) (unknown) (no (unknown) (unknown) History of (units (unk nown) date) placement of ear unknown) tubes (-02/08/86) (unknown) (no (unknown) (unknown) History of (units (unk nown) date) recurrent ear unknown) infection (unknown) (no (unknown) (unknown) Hypertension (units (u nknown) date) unknown) (unknown) (no (unknown) (unknown) Intake Note: (units (u nknown) date) unknown) (unknown) (no (unknown) (unknown) Intake performed (units (unknown) date) by: unknown) Marlee Jc (unknown) (no (unknown) (unknown) Intake (units (unkno wn) date) unknown) (unknown) (no (unknown) (unknown) Intake- Clincial (units (unknown) date) Staff unknown) (unknown) (no (unknown) (unknown) Internal Medicine (units (unknown) date) Office Visit unknown) (unknown) (no (unknown) (unknown) Is last menstrual (units (unknown) date) period known: Yes unknown) (unknown) (no (unknown) (unknown) Last Menstural (units (unknown) date) Cycle + Details unknown) (unknown) (no (unknown) (unknown) Left shoulder (units ( unknown) date) pain unknown) (unknown) (no (unknown) (unknown) Liver cancer (units (u nknown) date) unknown) (unknown) (no (unknown) (unknown) Loc: [facility] (units (unkno wn) date) unknown) (unknown) (no (unknown) (unknown) Medical History (units (unknown) date) (Reviewed 08/10/22 unknown) @ 17:32 by IKER Betancourt) (unknown) (no (unknown) (unknown) Medications (units (un known) date) unknown) (unknown) (no (unknown) (unknown) Medications: (units (u nknown) date) unknown) (unknown) (no (unknown) (unknown) Mental health (units ( unknown) date) problem unknown) (unknown) (no (unknown) (unknown) Migraines (-1993) (units (unknown) date) unknown) (unknown) (no (unknown) (unknown) Mother (units (unknown) date) Hyperlipidemia unknown) (unknown) (no (unknown) (unknown) Multi Vitamin (units ( unknown) date) 11/04/17 [History unknown) Confirmed 08/01/22] (unknown) (no (unknown) (unknown) New (units (unkno wn) date) unknown) (unknown) (no (unknown) (unknown) Non-healing wound (units (unknown) date) unknown) (unknown) (no (unknown) (unknown) Not currently (units ( unknown) date) unknown) (unknown) (no (unknown) (unknown) PFSH (units (unkno wn) date) unknown) (unknown) (no (unknown) (unknown) PO .COMPLEX PRN (units (unknown) date) pain #60 tabs unknown) 08/01/22 [Rx] (unknown) (no (unknown) (unknown) Painful menstrual (units (unknown) date) periods unknown) (unknown) (no (unknown) (unknown) Patient: (units (unkno wn) date) Kirsten Deng N unknown) MR#: [id number] (unknown) (no (unknown) (unknown) 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 (unknown) (no (unknown) (unknown) Position Sitting (units (unknown) date) unknown) (unknown) (no (unknown) (unknown) Pulse 78 (units (unkno wn) date) unknown) (unknown) (no (unknown) (unknown) Pulse Oximetry (units (unknown) date) (%) 98 unknown) (unknown) (no (unknown) (unknown) Pulse Source (units (u nknown) date) Monitor unknown) (unknown) (no (unknown) (unknown) Qualifiers: (units (un known) date) unknown) (unknown) (no (unknown) (unknown) Reason For Visit (units (unknown) date) unknown) (unknown) (no (unknown) (unknown) Refilled (units (unkno wn) date) unknown) (unknown) (no (unknown) (unknown) Right shoulder (units (unknown) date) pain unknown) (unknown) (no (unknown) (unknown) Sciatic leg pain (units (unknown) date) unknown) (unknown) (no (unknown) (unknown) Scoliosis (-1989) (units (unknown) date) unknown) (unknown) (no (unknown) (unknown) She is wondering (units (unknown) date) if she can get unknown) 40mg of Adderall. (unknown) (no (unknown) (unknown) Signed By: (units (unk nown) date) unknown) (unknown) (no (unknown) (unknown) Skin changes of (units (unknown) date) breasts unknown) (unknown) (no (unknown) (unknown) Smoking Status: (units (unknown) date) Current some day unknown) smoker (unknown) (no (unknown) (unknown) Social History (units (unknown) date) unknown) (unknown) (no (unknown) (unknown) Status: Chronic (units (unknown) date) unknown) (unknown) (no (unknown) (unknown) Surgical History (units (unknown) date) (Reviewed 08/10/22 unknown) @ 17:32 by IKER Betancourt) (unknown) (no (unknown) (unknown) Take 1 capsule (units (unknown) date) twice per day for unknown) pain 75 mg PO BID 180 caps 3RF (unknown) (no (unknown) (unknown) Take 1 tab daily (units (unknown) date) 100 mg PO DAILY 90 unknown) tabs 0RF F32.9 - Major depressive (unknown) (no (unknown) (unknown) This note may (units ( unknown) date) have been all or unknown) partially generated using voice recognition (unknown) (no (unknown) (unknown) Thyroid disease (units (unknown) date) unknown) (unknown) (no (unknown) (unknown) Tobacco + (units (unkn own) date) Substance Use unknown) (unknown) (no (unknown) (unknown) Tobacco Status (units (unknown) date) unknown) (unknown) (no (unknown) (unknown) UTI (urinary (units (u nknown) date) tract infection) unknown) (unknown) (no (unknown) (unknown) Vaginal delivery (units (unknown) date) unknown) (unknown) (no (unknown) (unknown) Visit Reasons: ER (units (unknown) date) follow up 03 unknown) (unknown) (no (unknown) (unknown) Vitals (units (unkno wn) date) unknown) (unknown) (no (unknown) (unknown) Weight 237 lb (units ( unknown) date) unknown) (unknown) (no (unknown) (unknown) Wondering if (units (u nknown) date) Lamotragine, she unknown) is taking 2 - 25mg / day. Wondering if this can (unknown) (no (unknown) (unknown) Would like to (units ( unknown) date) discuss her unknown) Adderall, this was decreased to 20mg. (unknown) (no (unknown) (unknown) alcohol intake: (units (unknown) date) never unknown) (unknown) (no (unknown) (unknown) amoxicillin (units (un known) date) Adverse Reaction unknown) (Verified 08/21/22 11:29) (unknown) (no (unknown) (unknown) an appt with (units (u nknown) date) Behavioral Health unknown) 09/13/22. (unknown) (no (unknown) (unknown) at this time is (units (unknown) date) 'dealing with unknown) everyone else,' since her hospitalization. (unknown) (no (unknown) (unknown) be increased. She (units (unknown) date) is willing to try unknown) 100mg/day. (unknown) (no (unknown) (unknown) but Seroquel still (units (unknown) date) at pharmacy. These unknown) meds help. Reports that her greatest issue (unknown) (no (unknown) (unknown) butalbital-acetam (units (unknown) date) inophen-caffeine unknown) 50 mg-325 mg-40 mg tablet See Rx Instructions (unknown) (no (unknown) (unknown) dextroamphetamine (units (unknown) date) -amphetamine ER 10 unknown) mg 24hr capsule,extend release 20 mg PO (unknown) (no (unknown) (unknown) difficulty (units (unkn own) date) integrating back unknown) into society' after being institutionalized. She has (unknown) (no (unknown) (unknown) disorder, single (units (unknown) date) episode, unknown) unspecified, F41.9 - Anxiety disorder, unspecified (unknown) (no (unknown) (unknown) duloxetine 20 mg (units (unknown) date) capsule,delayed unknown) release 20 mg PO DAILY 08/21/22 [History (unknown) (no (unknown) (unknown) gabapentin (units (unk nown) date) unknown) (unknown) (no (unknown) (unknown) have occurred. If (units (unknown) date) there are any unknown) questions, please contact the Medical Records (unknown) (no (unknown) (unknown) hospitalization (units (unknown) date) and for use upon unknown) d/c, has been able to fern picker the Hydroxyzine (unknown) (no (unknown) (unknown) household (units (unkn own) date) members: unknown) significant other and children (unknown) (no (unknown) (unknown) hydroxyzine HCl (units (unknown) date) 50 mg PO QID PRN unknown) 180 tabs 1RF anxiety (unknown) (no (unknown) (unknown) hydroxyzine HCl (units (unknown) date) 50 mg tablet 50 mg unknown) PO QID PRN anxiety #180 tabs 08/21/22 [Rx (unknown) (no (unknown) (unknown) lamotrigine 100 (units (unknown) date) mg tablet 100 mg unknown) PO DAILY #90 tabs 08/21/22 [Rx Confirmed (unknown) (no (unknown) (unknown) lamotrigine (units (un known) date) unknown) (unknown) (no (unknown) (unknown) marital status: (units (unknown) date) unmarried,living unknown) together (unknown) (no (unknown) (unknown) may occur. (units (unk nown) date) Occasional unknown) wrong-word or 'sound-alike' substitutions may have (unknown) (no (unknown) (unknown) occupational (units (u nknown) date) status: employed unknown) (unknown) (no (unknown) (unknown) occurred due to (units (unknown) date) the inherent unknown) limitations of voice recognition software. Please (unknown) (no (unknown) (unknown) of following (units (u nknown) date) through on her unknown) plan to take all of her medications at one time, so (unknown) (no (unknown) (unknown) pregabalin 75 mg (units (unknown) date) capsule 75 mg PO unknown) BID #180 caps 08/21/22 [Rx Confirmed 08/21/22] (unknown) (no (unknown) (unknown) pregabalin (units (unk nown) date) unknown) (unknown) (no (unknown) (unknown) quetiapine 100 mg (units (unknown) date) PO .q 6 hours 180 unknown) tabs 1RF (unknown) (no (unknown) (unknown) quetiapine 100 mg (units (unknown) date) tablet 100 mg PO unknown) .q 6 hours #180 tabs 08/21/22 [Rx Confirmed (unknown) (no (unknown) (unknown) read the note (units ( unknown) date) carefully and unknown) recognize, using context, where these substitutions (unknown) (no (unknown) (unknown) she called 911 (units (unknown) date) and was unknown) hospitalized at [facility] from 08/10 at midnight until 10am (unknown) (no (unknown) (unknown) software. (units (unkn own) date) Although every unknown) effort is made to edit content, cathode builder errors (unknown) (no (unknown) (unknown) substance use (units ( unknown) date) type: does not use unknown) (unknown) (no (unknown) (unknown) suicidality. She (units (unknown) date) had a plan. Her 15 unknown) year old daughter was at home and instead (unknown) (no (unknown) (unknown) trazodone 100 mg (units (unknown) date) tablet 100 mg PO unknown) BEDTIME 08/21/22 [History Confirmed 08/21/22] (unknown) (no (unknown) (unknown) unspecified (units (un known) date) unknown) (unknown) (no (unknown) (unknown) valacyclovir 500 (units (unknown) date) mg tablet 500 mg unknown) PO BID 08/21/22 [History Confirmed 08/21/22] Result panel 120 (unknown) (no (unknown) (unknown) (no value) (units (unk nown) date) unknown) (unknown) (no (unknown) (unknown) #30 caps 08/21/22 (units (unknown) date) [Rx Confirmed unknown) 08/21/22] (unknown) (no (unknown) (unknown) (1) Depression: (units (unknown) date) unknown) (unknown) (no (unknown) (unknown) (2) ADHD: (units (unkn own) date) unknown) (unknown) (no (unknown) (unknown) 08/21/22 (units (unkno wn) date) unknown) (unknown) (no (unknown) (unknown) 08/21/22] (units (unkn own) date) unknown) (unknown) (no (unknown) (unknown) 11:36 (units (unkno wn) date) unknown) (unknown) (no (unknown) (unknown) [id number] (units (unkno wn) date) unknown) (unknown) (no (unknown) (unknown) 08/15/22. She was (units (unknown) date) prescribed unknown) Seroquel and Hydroxyzine for as needed use during her (unknown) (no (unknown) (unknown) 41F with PMH (units (u nknown) date) recent unknown) hospitalization for her severe depression and feelings of (unknown) (no (unknown) (unknown) ADHD () (units (u nknown) date) unknown) (unknown) (no (unknown) (unknown) Abnormal Pap (units (u nknown) date) smear of cervix unknown) () (unknown) (no (unknown) (unknown) Age/Sex: 41 / F (units (unknown) date) Date of Service: unknown) (unknown) (no (unknown) (unknown) Allergies () (units (unknown) date) unknown) (unknown) (no (unknown) (unknown) Allergies (units (unkn own) date) unknown) (unknown) (no (unknown) (unknown) [place], [place] (units ( unknown) date) [id number] unknown) (unknown) (no (unknown) (unknown) Anesthesia (units (unk nown) date) unknown) (unknown) (no (unknown) (unknown) Anxiety (-2002) (units (unknown) date) unknown) (unknown) (no (unknown) (unknown) Assessment + Plan (units (unknown) date) unknown) (unknown) (no (unknown) (unknown) Attending Dr: (units ( unknown) date) Mari DONG unknown) (unknown) (no (unknown) (unknown) Attention (units (unkn own) date) deficit-hyperactiv unknown) ity disorder type: unspecified Qualified (unknown) (no (unknown) (unknown) BMI 38.2 (units (unkno wn) date) unknown) (unknown) (no (unknown) (unknown) BP 96/62 (units (unkno wn) date) unknown) (unknown) (no (unknown) (unknown) Back pain at (units (u nknown) date) L4-L5 level unknown) (-2014) (unknown) (no (unknown) (unknown) Biliary colic (units ( unknown) date) unknown) (unknown) (no (unknown) (unknown) Blood Pressure (units (unknown) date) Location Lt radial unknown) (unknown) (no (unknown) (unknown) Chicken pox (units (un known) date) () unknown) (unknown) (no (unknown) (unknown) Chief Complaint (units (unknown) date) unknown) (unknown) (no (unknown) (unknown) Chief Complaint: (units (unknown) date) f/up unknown) hospitalization for suicide attempt (unknown) (no (unknown) (unknown) Chronic hip pain, (units (unknown) date) bilateral unknown) (unknown) (no (unknown) (unknown) Chronic right hip (units (unknown) date) pain unknown) (unknown) (no (unknown) (unknown) Code(s): F90.9 - (units (unknown) date) Attention-deficit unknown) hyperactivity disorder, unspecified type (unknown) (no (unknown) (unknown) Colon polyps (units (u nknown) date) () unknown) (unknown) (no (unknown) (unknown) Confirmed (units (unkn own) date) 08/21/22] unknown) (unknown) (no (unknown) (unknown) DAILY 08/21/22 (units (unknown) date) [History Confirmed unknown) 08/21/22] (unknown) (no (unknown) (unknown) : 1980 (units (unknown) date) Acct:[id number] unknown) (unknown) (no (unknown) (unknown) Date of Last (units (u nknown) date) Menstrual Period: unknown) 08/10/22 (unknown) (no (unknown) (unknown) Denies SI today. (units (unknown) date) unknown) (unknown) (no (unknown) (unknown) Depression (units (unk nown) date) () unknown) (unknown) (no (unknown) (unknown) Depression Type: (units (unknown) date) unspecified unknown) Qualified Code(s): F32.A - Depression, (unknown) (no (unknown) (unknown) Dept at (units (unkno wn) date) . unknown) (unknown) (no (unknown) (unknown) Details: (units (unkno wn) date) unknown) (unknown) (no (unknown) (unknown) Diabetes mellitus (units (unknown) date) unknown) (unknown) (no (unknown) (unknown) Diarrhea (units (unkno wn) date) unknown) (unknown) (no (unknown) (unknown) Discontinued (units (u nknown) date) Reason: Dose unknown) Change 50 mg PO DAILY (unknown) (no (unknown) (unknown) Discontinued (units (u nknown) date) Reason: Provider's unknown) Order 300 mg PO TID (unknown) (no (unknown) (unknown) Discontinued (units (u nknown) date) unknown) (unknown) (no (unknown) (unknown) Documented By: (units (unknown) date) Mari Skinner unknown) 08/21/22 1128 (unknown) (no (unknown) (unknown) Draft (units (unkno wn) date) unknown) (unknown) (no (unknown) (unknown) ER F/u suicidal (units (unknown) date) ideation, unknown) discharge from [facility]. Pt states 'she is having (unknown) (no (unknown) (unknown) Effexor Adverse (units (unknown) date) Reaction (Mild, unknown) Uncoded 08/21/22 11:29) (unknown) (no (unknown) (unknown) Fall (units (unkno wn) date) unknown) (unknown) (no (unknown) (unknown) Family History (units (unknown) date) (Reviewed 08/10/22 unknown) @ 17:32 by IKER Betancourt) (unknown) (no (unknown) (unknown) Father (units (unknown) date) Cancer unknown) (unknown) (no (unknown) (unknown) Fibroids (-2018) (units (unknown) date) unknown) (unknown) (no (unknown) (unknown) Fibromyalgia (units (u nknown) date) unknown) (unknown) (no (unknown) (unknown) [facility]) (unknown) (no (unknown) (unknown) Forgetfulness (units ( unknown) date) unknown) (unknown) (no (unknown) (unknown) Grandfather Lung (units (unknown) date) cancer unknown) (unknown) (no (unknown) (unknown) Grandmother (units (un known) date) Cancer unknown) (unknown) (no (unknown) (unknown) HPI (units (unkno wn) date) unknown) (unknown) (no (unknown) (unknown) Health Management (units (unknown) date) reviewed with unknown) patient: Yes (unknown) (no (unknown) (unknown) Health Management (units (unknown) date) unknown) (unknown) (no (unknown) (unknown) Heavy menstrual (units (unknown) date) period unknown) (unknown) (no (unknown) (unknown) Height 5 ft 6 in (units (unknown) date) unknown) (unknown) (no (unknown) (unknown) History of (units (unk nown) date) bipolar disorder unknown) (unknown) (no (unknown) (unknown) History of heart (units (unknown) date) disease unknown) (unknown) (no (unknown) (unknown) History of (units (unk nown) date) placement of ear unknown) tubes (-02/08/86) (unknown) (no (unknown) (unknown) History of (units (unk nown) date) recurrent ear unknown) infection (unknown) (no (unknown) (unknown) Hypertension (units (u nknown) date) unknown) (unknown) (no (unknown) (unknown) Intake Note: (units (u nknown) date) unknown) (unknown) (no (unknown) (unknown) Intake performed (units (unknown) date) by: unknown) Marlee Jc (unknown) (no (unknown) (unknown) Intake (units (unkno wn) date) unknown) (unknown) (no (unknown) (unknown) Intake- Clincial (units (unknown) date) Staff unknown) (unknown) (no (unknown) (unknown) Internal Medicine (units (unknown) date) Office Visit unknown) (unknown) (no (unknown) (unknown) Is last menstrual (units (unknown) date) period known: Yes unknown) (unknown) (no (unknown) (unknown) Last Menstural (units (unknown) date) Cycle + Details unknown) (unknown) (no (unknown) (unknown) Left shoulder (units ( unknown) date) pain unknown) (unknown) (no (unknown) (unknown) Liver cancer (units (u nknown) date) unknown) (unknown) (no (unknown) (unknown) Loc: [facility] (units (unkno wn) date) unknown) (unknown) (no (unknown) (unknown) Medical History (units (unknown) date) (Reviewed 08/10/22 unknown) @ 17:32 by IKER Betancourt) (unknown) (no (unknown) (unknown) Medications (units (un known) date) unknown) (unknown) (no (unknown) (unknown) Medications: (units (u nknown) date) unknown) (unknown) (no (unknown) (unknown) Mental health (units ( unknown) date) problem unknown) (unknown) (no (unknown) (unknown) Migraines (-1993) (units (unknown) date) unknown) (unknown) (no (unknown) (unknown) Mother (units (unknown) date) Hyperlipidemia unknown) (unknown) (no (unknown) (unknown) Multi Vitamin (units ( unknown) date) 11/04/17 [History unknown) Confirmed 08/01/22] (unknown) (no (unknown) (unknown) New (units (unkno wn) date) unknown) (unknown) (no (unknown) (unknown) Non-healing wound (units (unknown) date) unknown) (unknown) (no (unknown) (unknown) Not currently (units ( unknown) date) unknown) (unknown) (no (unknown) (unknown) PFSH (units (unkno wn) date) unknown) (unknown) (no (unknown) (unknown) PO .COMPLEX PRN (units (unknown) date) pain #60 tabs unknown) 08/01/22 [Rx] (unknown) (no (unknown) (unknown) Painful menstrual (units (unknown) date) periods unknown) (unknown) (no (unknown) (unknown) Patient: (units (unkno wn) date) Kirsten Deng N unknown) MR#: [id number] (unknown) (no (unknown) (unknown) 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 (unknown) (no (unknown) (unknown) Position Sitting (units (unknown) date) unknown) (unknown) (no (unknown) (unknown) Pulse 78 (units (unkno wn) date) unknown) (unknown) (no (unknown) (unknown) Pulse Oximetry (units (unknown) date) (%) 98 unknown) (unknown) (no (unknown) (unknown) Pulse Source (units (u nknown) date) Monitor unknown) (unknown) (no (unknown) (unknown) Qualifiers: (units (un known) date) unknown) (unknown) (no (unknown) (unknown) Reason For Visit (units (unknown) date) unknown) (unknown) (no (unknown) (unknown) Refilled (units (unkno wn) date) unknown) (unknown) (no (unknown) (unknown) Right shoulder (units (unknown) date) pain unknown) (unknown) (no (unknown) (unknown) Sciatic leg pain (units (unknown) date) unknown) (unknown) (no (unknown) (unknown) Scoliosis () (units (unknown) date) unknown) (unknown) (no (unknown) (unknown) She is wondering (units (unknown) date) if she can get unknown) 40mg of Adderall. (unknown) (no (unknown) (unknown) Signed By: (units (unk nown) date) unknown) (unknown) (no (unknown) (unknown) Skin changes of (units (unknown) date) breasts unknown) (unknown) (no (unknown) (unknown) Smoking Status: (units (unknown) date) Current some day unknown) smoker (unknown) (no (unknown) (unknown) Social History (units (unknown) date) unknown) (unknown) (no (unknown) (unknown) Status: Chronic (units (unknown) date) unknown) (unknown) (no (unknown) (unknown) Surgical History (units (unknown) date) (Reviewed 08/10/22 unknown) @ 17:32 by IKER Betancourt) (unknown) (no (unknown) (unknown) Take 1 capsule (units (unknown) date) twice per day for unknown) pain 75 mg PO BID 180 caps 3RF (unknown) (no (unknown) (unknown) Take 1 tab daily (units (unknown) date) 100 mg PO DAILY 90 unknown) tabs 0RF F32.9 - Major depressive (unknown) (no (unknown) (unknown) Take 1 tab daily (units (unknown) date) for ADHD 30 mg PO unknown) QAM 30 caps 0RF F90.9 - Attention-deficit (unknown) (no (unknown) (unknown) This note may (units ( unknown) date) have been all or unknown) partially generated using voice recognition (unknown) (no (unknown) (unknown) Thyroid disease (units (unknown) date) unknown) (unknown) (no (unknown) (unknown) Tobacco + (units (unkn own) date) Substance Use unknown) (unknown) (no (unknown) (unknown) Tobacco Status (units (unknown) date) unknown) (unknown) (no (unknown) (unknown) UTI (urinary (units (u nknown) date) tract infection) unknown) (unknown) (no (unknown) (unknown) Vaginal delivery (units (unknown) date) unknown) (unknown) (no (unknown) (unknown) Visit Reasons: ER (units (unknown) date) follow up 03 unknown) (unknown) (no (unknown) (unknown) Vitals (units (unkno wn) date) unknown) (unknown) (no (unknown) (unknown) Weight 237 lb (units ( unknown) date) unknown) (unknown) (no (unknown) (unknown) Wondering if (units (u nknown) date) Lamotragine, she unknown) is taking 2 - 25mg / day. Wondering if this can (unknown) (no (unknown) (unknown) Would like to (units ( unknown) date) discuss her unknown) Adderall, this was decreased to 20mg. (unknown) (no (unknown) (unknown) alcohol intake: (units (unknown) date) never unknown) (unknown) (no (unknown) (unknown) amoxicillin (units (un known) date) Adverse Reaction unknown) (Verified 08/21/22 11:29) (unknown) (no (unknown) (unknown) an appt with (units (u nknown) date) Behavioral Health unknown) 09/13/22. (unknown) (no (unknown) (unknown) at this time is (units (unknown) date) 'dealing with unknown) everyone else,' since her hospitalization. (unknown) (no (unknown) (unknown) be increased. She (units (unknown) date) is willing to try unknown) 100mg/day. (unknown) (no (unknown) (unknown) but Serorobertl still (units (unknown) date) at pharmacy. These unknown) meds help. Reports that her greatest issue (unknown) (no (unknown) (unknown) butalbital-acetam (units (unknown) date) inophen-caffeine unknown) 50 mg-325 mg-40 mg tablet See Rx Instructions (unknown) (no (unknown) (unknown) dextroamphetamine (units (unknown) date) -amphetamine 30 mg unknown) ER (unknown) (no (unknown) (unknown) dextroamphetamine (units (unknown) date) -amphetamine ER 10 unknown) mg 24hr capsule,extend release 20 mg PO (unknown) (no (unknown) (unknown) dextroamphetamine (units (unknown) date) -amphetamine ER 30 unknown) mg 24hr capsule,extend release 30 mg PO QAM (unknown) (no (unknown) (unknown) difficulty (units (unkn own) date) integrating back unknown) into society' after being institutionalized. She has (unknown) (no (unknown) (unknown) disorder, single (units (unknown) date) episode, unknown) unspecified, F41.9 - Anxiety disorder, unspecified (unknown) (no (unknown) (unknown) duloxetine 20 mg (units (unknown) date) capsule,delayed unknown) release 20 mg PO DAILY 08/21/22 [History (unknown) (no (unknown) (unknown) gabapentin (units (unk nown) date) unknown) (unknown) (no (unknown) (unknown) have occurred. If (units (unknown) date) there are any unknown) questions, please contact the Medical Records (unknown) (no (unknown) (unknown) hospitalization (units (unknown) date) and for use upon unknown) d/c, has been able to fern picker the Hydroxyzine (unknown) (no (unknown) (unknown) household (units (unkn own) date) members: unknown) significant other and children (unknown) (no (unknown) (unknown) hydroxyzine HCl (units (unknown) date) 50 mg PO QID PRN unknown) 180 tabs 1RF anxiety (unknown) (no (unknown) (unknown) hydroxyzine HCl (units (unknown) date) 50 mg tablet 50 mg unknown) PO QID PRN anxiety #180 tabs 08/21/22 [Rx (unknown) (no (unknown) (unknown) hyperactivity (units ( unknown) date) disorder, unknown) unspecified type (unknown) (no (unknown) (unknown) lamotrigine 100 (units (unknown) date) mg tablet 100 mg unknown) PO DAILY #90 tabs 08/21/22 [Rx Confirmed (unknown) (no (unknown) (unknown) lamotrigine (units (un known) date) unknown) (unknown) (no (unknown) (unknown) marital status: (units (unknown) date) unmarried,living unknown) together (unknown) (no (unknown) (unknown) may occur. (units (unk nown) date) Occasional unknown) wrong-word or 'sound-alike' substitutions may have (unknown) (no (unknown) (unknown) occupational (units (u nknown) date) status: employed unknown) (unknown) (no (unknown) (unknown) occurred due to (units (unknown) date) the inherent unknown) limitations of voice recognition software. Please (unknown) (no (unknown) (unknown) of following (units (u nknown) date) through on her unknown) plan to take all of her medications at one time, so (unknown) (no (unknown) (unknown) pregabalin 75 mg (units (unknown) date) capsule 75 mg PO unknown) BID #180 caps 08/21/22 [Rx Confirmed 08/21/22] (unknown) (no (unknown) (unknown) pregabalin (units (unk nown) date) unknown) (unknown) (no (unknown) (unknown) quetiapine 100 mg (units (unknown) date) PO .q 6 hours 180 unknown) tabs 1RF (unknown) (no (unknown) (unknown) quetiapine 100 mg (units (unknown) date) tablet 100 mg PO unknown) .q 6 hours #180 tabs 08/21/22 [Rx Confirmed (unknown) (no (unknown) (unknown) read the note (units ( unknown) date) carefully and unknown) recognize, using context, where these substitutions (unknown) (no (unknown) (unknown) she called 911 (units (unknown) date) and was unknown) hospitalized at [facility] from 08/10 at midnight until 10am (unknown) (no (unknown) (unknown) software. (units (unkn own) date) Although every unknown) effort is made to edit content, cathode builder errors (unknown) (no (unknown) (unknown) substance use (units ( unknown) date) type: does not use unknown) (unknown) (no (unknown) (unknown) suicidality. She (units (unknown) date) had a plan. Her 15 unknown) year old daughter was at home and instead (unknown) (no (unknown) (unknown) trazodone 100 mg (units (unknown) date) tablet 100 mg PO unknown) BEDTIME 08/21/22 [History Confirmed 08/21/22] (unknown) (no (unknown) (unknown) unspecified (units (un known) date) unknown) (unknown) (no (unknown) (unknown) valacyclovir 500 (units (unknown) date) mg tablet 500 mg unknown) PO BID 08/21/22 [History Confirmed 08/21/22] Result panel 121 (unknown) (no (unknown) (unknown) (no value) (units (unk nown) date) unknown) (unknown) (no (unknown) (unknown) #30 caps 08/21/22 (units (unknown) date) [Rx Confirmed unknown) 08/21/22] (unknown) (no (unknown) (unknown) (1) Depression: (units (unknown) date) unknown) (unknown) (no (unknown) (unknown) (2) ADHD: (units (unkn own) date) unknown) (unknown) (no (unknown) (unknown) 08/21/22 (units (unkno wn) date) unknown) (unknown) (no (unknown) (unknown) 08/21/22] (units (unkn own) date) unknown) (unknown) (no (unknown) (unknown) 11:36 (units (unkno wn) date) unknown) (unknown) (no (unknown) (unknown) [id number] (units (unkno wn) date) unknown) (unknown) (no (unknown) (unknown) 08/15/22. She was (units (unknown) date) prescribed unknown) Seroquel and Hydroxyzine for as needed use during her (unknown) (no (unknown) (unknown) 41F with PMH (units (u nknown) date) recent unknown) hospitalization for her severe depression and feelings of (unknown) (no (unknown) (unknown) ADHD () (units (u nknown) date) unknown) (unknown) (no (unknown) (unknown) Abnormal Pap (units (u nknown) date) smear of cervix unknown) () (unknown) (no (unknown) (unknown) Age/Sex: 41 / F (units (unknown) date) Date of Service: unknown) (unknown) (no (unknown) (unknown) Allergies (-1988) (units (unknown) date) unknown) (unknown) (no (unknown) (unknown) Allergies (units (unkn own) date) unknown) (unknown) (no (unknown) (unknown) [place], [place] (units ( unknown) date) [id number] unknown) (unknown) (no (unknown) (unknown) Anesthesia (units (unk nown) date) unknown) (unknown) (no (unknown) (unknown) Anxiety (-2002) (units (unknown) date) unknown) (unknown) (no (unknown) (unknown) Assessment + Plan (units (unknown) date) unknown) (unknown) (no (unknown) (unknown) Attending Dr: (units ( unknown) date) Mari DONG unknown) (unknown) (no (unknown) (unknown) Attention (units (unkn own) date) deficit-hyperactiv unknown) ity disorder type: unspecified Qualified (unknown) (no (unknown) (unknown) BMI 38.2 (units (unkno wn) date) unknown) (unknown) (no (unknown) (unknown) BP 96/62 (units (unkno wn) date) unknown) (unknown) (no (unknown) (unknown) Back pain at (units (u nknown) date) L4-L5 level unknown) (-2014) (unknown) (no (unknown) (unknown) Biliary colic (units ( unknown) date) unknown) (unknown) (no (unknown) (unknown) Blood Pressure (units (unknown) date) Location Lt radial unknown) (unknown) (no (unknown) (unknown) Chicken pox (units (un known) date) () unknown) (unknown) (no (unknown) (unknown) Chief Complaint (units (unknown) date) unknown) (unknown) (no (unknown) (unknown) Chief Complaint: (units (unknown) date) f/up unknown) hospitalization for suicide attempt (unknown) (no (unknown) (unknown) Chronic hip pain, (units (unknown) date) bilateral unknown) (unknown) (no (unknown) (unknown) Chronic right hip (units (unknown) date) pain unknown) (unknown) (no (unknown) (unknown) Code(s): F90.9 - (units (unknown) date) Attention-deficit unknown) hyperactivity disorder, unspecified type (unknown) (no (unknown) (unknown) Colon polyps (units (u nknown) date) () unknown) (unknown) (no (unknown) (unknown) Confirmed (units (unkn own) date) 08/21/22] unknown) (unknown) (no (unknown) (unknown) DAILY 08/21/22 (units (unknown) date) [History Confirmed unknown) 08/21/22] (unknown) (no (unknown) (unknown) : 1980 (units (unknown) date) Acct:[id number] unknown) (unknown) (no (unknown) (unknown) Date of Last (units (u nknown) date) Menstrual Period: unknown) 08/10/22 (unknown) (no (unknown) (unknown) Denies SI today. (units (unknown) date) unknown) (unknown) (no (unknown) (unknown) Depression (units (unk nown) date) () unknown) (unknown) (no (unknown) (unknown) Depression Type: (units (unknown) date) unspecified unknown) Qualified Code(s): F32.A - Depression, (unknown) (no (unknown) (unknown) Dept at (units (unkno wn) date) . unknown) (unknown) (no (unknown) (unknown) Details: (units (unkno wn) date) unknown) (unknown) (no (unknown) (unknown) Diabetes mellitus (units (unknown) date) unknown) (unknown) (no (unknown) (unknown) Diarrhea (units (unkno wn) date) unknown) (unknown) (no (unknown) (unknown) Discontinued (units (u nknown) date) Reason: Dose unknown) Change 50 mg PO DAILY (unknown) (no (unknown) (unknown) Discontinued (units (u nknown) date) Reason: Provider's unknown) Order 300 mg PO TID (unknown) (no (unknown) (unknown) Discontinued (units (u nknown) date) unknown) (unknown) (no (unknown) (unknown) Documented By: (units (unknown) date) Mari Skinner unknown) 08/21/22 1128 (unknown) (no (unknown) (unknown) Draft (units (unkno wn) date) unknown) (unknown) (no (unknown) (unknown) ER F/u suicidal (units (unknown) date) ideation, unknown) discharge from [facility]. Pt states 'she is having (unknown) (no (unknown) (unknown) Effexor Adverse (units (unknown) date) Reaction (Mild, unknown) Uncoded 08/21/22 11:29) (unknown) (no (unknown) (unknown) Fall (units (unkno wn) date) unknown) (unknown) (no (unknown) (unknown) Family History (units (unknown) date) (Reviewed 08/10/22 unknown) @ 17:32 by IKER Betancourt) (unknown) (no (unknown) (unknown) Father (units (unknown) date) Cancer unknown) (unknown) (no (unknown) (unknown) Fibroids (-2018) (units (unknown) date) unknown) (unknown) (no (unknown) (unknown) Fibromyalgia (units (u nknown) date) unknown) (unknown) (no (unknown) (unknown) [facility] ([facility] unknown) (unknown) (no (unknown) (unknown) Forgetfulness (units ( unknown) date) unknown) (unknown) (no (unknown) (unknown) Grandfather Lung (units (unknown) date) cancer unknown) (unknown) (no (unknown) (unknown) Grandmother (units (un known) date) Cancer unknown) (unknown) (no (unknown) (unknown) HPI (units (unkno wn) date) unknown) (unknown) (no (unknown) (unknown) Health Management (units (unknown) date) reviewed with unknown) patient: Yes (unknown) (no (unknown) (unknown) Health Management (units (unknown) date) unknown) (unknown) (no (unknown) (unknown) Heavy menstrual (units (unknown) date) period unknown) (unknown) (no (unknown) (unknown) Height 5 ft 6 in (units (unknown) date) unknown) (unknown) (no (unknown) (unknown) History of (units (unk nown) date) bipolar disorder unknown) (unknown) (no (unknown) (unknown) History of heart (units (unknown) date) disease unknown) (unknown) (no (unknown) (unknown) History of (units (unk nown) date) placement of ear unknown) tubes (02/08/86) (unknown) (no (unknown) (unknown) History of (units (unk nown) date) recurrent ear unknown) infection (unknown) (no (unknown) (unknown) Hypertension (units (u nknown) date) unknown) (unknown) (no (unknown) (unknown) Intake Note: (units (u nknown) date) unknown) (unknown) (no (unknown) (unknown) Intake performed (units (unknown) date) by: unknown) Marlee Jc (unknown) (no (unknown) (unknown) Intake (units (unkno wn) date) unknown) (unknown) (no (unknown) (unknown) Intake- Clincial (units (unknown) date) Staff unknown) (unknown) (no (unknown) (unknown) Internal Medicine (units (unknown) date) Office Visit unknown) (unknown) (no (unknown) (unknown) Is last menstrual (units (unknown) date) period known: Yes unknown) (unknown) (no (unknown) (unknown) Last Menstural (units (unknown) date) Cycle + Details unknown) (unknown) (no (unknown) (unknown) Left shoulder (units ( unknown) date) pain unknown) (unknown) (no (unknown) (unknown) Liver cancer (units (u nknown) date) unknown) (unknown) (no (unknown) (unknown) Loc: [facility] (units (unkno wn) date) unknown) (unknown) (no (unknown) (unknown) Medical History (units (unknown) date) (Reviewed 08/10/22 unknown) @ 17:32 by IKER Betancourt) (unknown) (no (unknown) (unknown) Medications (units (un known) date) unknown) (unknown) (no (unknown) (unknown) Medications: (units (u nknown) date) unknown) (unknown) (no (unknown) (unknown) Mental health (units ( unknown) date) problem unknown) (unknown) (no (unknown) (unknown) Migraines (-1993) (units (unknown) date) unknown) (unknown) (no (unknown) (unknown) Mother (units (unknown) date) Hyperlipidemia unknown) (unknown) (no (unknown) (unknown) Multi Vitamin (units ( unknown) date) 11/04/17 [History unknown) Confirmed 08/01/22] (unknown) (no (unknown) (unknown) New (units (unkno wn) date) unknown) (unknown) (no (unknown) (unknown) Non-healing wound (units (unknown) date) unknown) (unknown) (no (unknown) (unknown) Not currently (units ( unknown) date) unknown) (unknown) (no (unknown) (unknown) PFSH (units (unkno wn) date) unknown) (unknown) (no (unknown) (unknown) PO .COMPLEX PRN (units (unknown) date) pain #60 tabs unknown) 08/01/22 [Rx] (unknown) (no (unknown) (unknown) Painful menstrual (units (unknown) date) periods unknown) (unknown) (no (unknown) (unknown) Patient: (units (unkno wn) date) Kirsten Deng N unknown) MR#: [id number] (unknown) (no (unknown) (unknown) 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 (unknown) (no (unknown) (unknown) Position Sitting (units (unknown) date) unknown) (unknown) (no (unknown) (unknown) Pulse 78 (units (unkno wn) date) unknown) (unknown) (no (unknown) (unknown) Pulse Oximetry (units (unknown) date) (%) 98 unknown) (unknown) (no (unknown) (unknown) Pulse Source (units (u nknown) date) Monitor unknown) (unknown) (no (unknown) (unknown) Qualifiers: (units (un known) date) unknown) (unknown) (no (unknown) (unknown) Reason For Visit (units (unknown) date) unknown) (unknown) (no (unknown) (unknown) Refilled (units (unkno wn) date) unknown) (unknown) (no (unknown) (unknown) Right shoulder (units (unknown) date) pain unknown) (unknown) (no (unknown) (unknown) Sciatic leg pain (units (unknown) date) unknown) (unknown) (no (unknown) (unknown) Scoliosis (-1989) (units (unknown) date) unknown) (unknown) (no (unknown) (unknown) She is wondering (units (unknown) date) if she can get unknown) 40mg of Adderall. (unknown) (no (unknown) (unknown) Signed By: (units (unk nown) date) unknown) (unknown) (no (unknown) (unknown) Skin changes of (units (unknown) date) breasts unknown) (unknown) (no (unknown) (unknown) Smoking Status: (units (unknown) date) Current some day unknown) smoker (unknown) (no (unknown) (unknown) Social History (units (unknown) date) unknown) (unknown) (no (unknown) (unknown) Status: Chronic (units (unknown) date) unknown) (unknown) (no (unknown) (unknown) Surgical History (units (unknown) date) (Reviewed 08/10/22 unknown) @ 17:32 by IKER Betancourt) (unknown) (no (unknown) (unknown) Take 1 capsule (units (unknown) date) twice per day for unknown) pain 75 mg PO BID 180 caps 3RF (unknown) (no (unknown) (unknown) Take 1 tab daily (units (unknown) date) 100 mg PO DAILY 90 unknown) tabs 0RF F32.9 - Major depressive (unknown) (no (unknown) (unknown) Take 1 tab daily (units (unknown) date) for ADHD 30 mg PO unknown) QAM 30 caps 0RF F90.9 - Attention-deficit (unknown) (no (unknown) (unknown) This note may (units ( unknown) date) have been all or unknown) partially generated using voice recognition (unknown) (no (unknown) (unknown) Thyroid disease (units (unknown) date) unknown) (unknown) (no (unknown) (unknown) Tobacco + (units (unkn own) date) Substance Use unknown) (unknown) (no (unknown) (unknown) Tobacco Status (units (unknown) date) unknown) (unknown) (no (unknown) (unknown) UTI (urinary (units (u nknown) date) tract infection) unknown) (unknown) (no (unknown) (unknown) Vaginal delivery (units (unknown) date) unknown) (unknown) (no (unknown) (unknown) Visit Reasons: ER (units (unknown) date) follow up 03 unknown) (unknown) (no (unknown) (unknown) Vitals (units (unkno wn) date) unknown) (unknown) (no (unknown) (unknown) Weight 237 lb (units ( unknown) date) unknown) (unknown) (no (unknown) (unknown) Wondering if (units (u nknown) date) Lamotragine, she unknown) is taking 2 - 25mg / day. Wondering if this can (unknown) (no (unknown) (unknown) Would like to (units ( unknown) date) discuss her unknown) Adderall, this was decreased to 20mg. (unknown) (no (unknown) (unknown) alcohol intake: (units (unknown) date) never unknown) (unknown) (no (unknown) (unknown) amoxicillin (units (un known) date) Adverse Reaction unknown) (Verified 08/21/22 11:29) (unknown) (no (unknown) (unknown) an appt with (units (u nknown) date) Behavioral Health unknown) 09/13/22. (unknown) (no (unknown) (unknown) at this time is (units (unknown) date) 'dealing with unknown) everyone else,' since her hospitalization. (unknown) (no (unknown) (unknown) be increased. She (units (unknown) date) is willing to try unknown) 100mg/day. (unknown) (no (unknown) (unknown) but Seroquel still (units (unknown) date) at pharmacy. These unknown) meds help. Reports that her greatest issue (unknown) (no (unknown) (unknown) butalbital-acetam (units (unknown) date) inophen-caffeine unknown) 50 mg-325 mg-40 mg tablet See Rx Instructions (unknown) (no (unknown) (unknown) dextroamphetamine (units (unknown) date) -amphetamine 30 mg unknown) ER (unknown) (no (unknown) (unknown) dextroamphetamine (units (unknown) date) -amphetamine ER 10 unknown) mg 24hr capsule,extend release 20 mg PO (unknown) (no (unknown) (unknown) dextroamphetamine (units (unknown) date) -amphetamine ER 30 unknown) mg 24hr capsule,extend release 30 mg PO QAM (unknown) (no (unknown) (unknown) difficulty (units (unkn own) date) integrating back unknown) into society' after being institutionalized. She has (unknown) (no (unknown) (unknown) disorder, single (units (unknown) date) episode, unknown) unspecified, F41.9 - Anxiety disorder, unspecified (unknown) (no (unknown) (unknown) duloxetine 20 mg (units (unknown) date) capsule,delayed unknown) release 20 mg PO DAILY 08/21/22 [History (unknown) (no (unknown) (unknown) gabapentin (units (unk nown) date) unknown) (unknown) (no (unknown) (unknown) have occurred. If (units (unknown) date) there are any unknown) questions, please contact the Medical Records (unknown) (no (unknown) (unknown) hospitalization (units (unknown) date) and for use upon unknown) d/c, has been able to fern picker the Hydroxyzine (unknown) (no (unknown) (unknown) household (units (unkn own) date) members: unknown) significant other and children (unknown) (no (unknown) (unknown) hydroxyzine HCl (units (unknown) date) 50 mg PO QID PRN unknown) 180 tabs 1RF anxiety (unknown) (no (unknown) (unknown) hydroxyzine HCl (units (unknown) date) 50 mg tablet 50 mg unknown) PO QID PRN anxiety #180 tabs 08/21/22 [Rx (unknown) (no (unknown) (unknown) hyperactivity (units ( unknown) date) disorder, unknown) unspecified type (unknown) (no (unknown) (unknown) lamotrigine 100 (units (unknown) date) mg tablet 100 mg unknown) PO DAILY #90 tabs 08/21/22 [Rx Confirmed (unknown) (no (unknown) (unknown) lamotrigine (units (un known) date) unknown) (unknown) (no (unknown) (unknown) marital status: (units (unknown) date) unmarried,living unknown) together (unknown) (no (unknown) (unknown) may occur. (units (unk nown) date) Occasional unknown) wrong-word or 'sound-alike' substitutions may have (unknown) (no (unknown) (unknown) occupational (units (u nknown) date) status: employed unknown) (unknown) (no (unknown) (unknown) occurred due to (units (unknown) date) the inherent unknown) limitations of voice recognition software. Please (unknown) (no (unknown) (unknown) of following (units (u nknown) date) through on her unknown) plan to take all of her medications at one time, so (unknown) (no (unknown) (unknown) pregabalin 75 mg (units (unknown) date) capsule 75 mg PO unknown) BID #180 caps 08/21/22 [Rx Confirmed 08/21/22] (unknown) (no (unknown) (unknown) pregabalin (units (unk nown) date) unknown) (unknown) (no (unknown) (unknown) quetiapine 100 mg (units (unknown) date) PO .q 6 hours 180 unknown) tabs 1RF (unknown) (no (unknown) (unknown) quetiapine 100 mg (units (unknown) date) tablet 100 mg PO unknown) .q 6 hours #180 tabs 08/21/22 [Rx Confirmed (unknown) (no (unknown) (unknown) read the note (units ( unknown) date) carefully and unknown) recognize, using context, where these substitutions (unknown) (no (unknown) (unknown) she called 911 (units (unknown) date) and was unknown) hospitalized at [facility] from 3/3 at midnight until 10am (unknown) (no (unknown) (unknown) software. (units (unkn own) date) Although every unknown) effort is made to edit content, cathode builder errors (unknown) (no (unknown) (unknown) substance use (units ( unknown) date) type: does not use unknown) (unknown) (no (unknown) (unknown) suicidality. She (units (unknown) date) had a plan. Her 17 unknown) year old daughter was at home and instead (unknown) (no (unknown) (unknown) trazodone 100 mg (units (unknown) date) tablet 100 mg PO unknown) BEDTIME 08/21/22 [History Confirmed 08/21/22] (unknown) (no (unknown) (unknown) unspecified (units (un known) date) unknown) (unknown) (no (unknown) (unknown) valacyclovir 500 (units (unknown) date) mg tablet 500 mg unknown) PO BID 08/21/22 [History Confirmed 08/21/22] Result panel 122 (unknown) (no (unknown) (unknown) (no value) (units (unk nown) date) unknown) (unknown) (no (unknown) (unknown) #30 caps 08/21/22 (units (unknown) date) [Rx Confirmed unknown) 08/21/22] (unknown) (no (unknown) (unknown) (1) Depression: (units (unknown) date) unknown) (unknown) (no (unknown) (unknown) (2) ADHD: (units (unkn own) date) unknown) (unknown) (no (unknown) (unknown) 08/21/22 (units (unkno wn) date) unknown) (unknown) (no (unknown) (unknown) 08/21/22] (units (unkn own) date) unknown) (unknown) (no (unknown) (unknown) 11:36 (units (unkno wn) date) unknown) (unknown) (no (unknown) (unknown) [id number] (units (unkno wn) date) unknown) (unknown) (no (unknown) (unknown) 08/15/22. She was (units (unknown) date) prescribed unknown) Seroquel and Hydroxyzine for as needed use during her (unknown) (no (unknown) (unknown) 41F with PMH (units (u nknown) date) recent unknown) hospitalization for her severe depression and feelings of (unknown) (no (unknown) (unknown) ADHD (-1982) (units (u nknown) date) unknown) (unknown) (no (unknown) (unknown) Abnormal Pap (units (u nknown) date) smear of cervix unknown) () (unknown) (no (unknown) (unknown) Age/Sex: 41 / F (units (unknown) date) Date of Service: unknown) (unknown) (no (unknown) (unknown) Allergies (-1988) (units (unknown) date) unknown) (unknown) (no (unknown) (unknown) Allergies (units (unkn own) date) unknown) (unknown) (no (unknown) (unknown) [place], [place] (units ( unknown) date) [id number] unknown) (unknown) (no (unknown) (unknown) Anesthesia (units (unk nown) date) unknown) (unknown) (no (unknown) (unknown) Anxiety () (units (unknown) date) unknown) (unknown) (no (unknown) (unknown) Assessment + Plan (units (unknown) date) unknown) (unknown) (no (unknown) (unknown) Attending Dr: (units ( unknown) date) Mari DONG unknown) (unknown) (no (unknown) (unknown) Attention (units (unkn own) date) deficit-hyperactiv unknown) ity disorder type: unspecified Qualified (unknown) (no (unknown) (unknown) BMI 38.2 (units (unkno wn) date) unknown) (unknown) (no (unknown) (unknown) BP 96/62 (units (unkno wn) date) unknown) (unknown) (no (unknown) (unknown) Back pain at (units (u nknown) date) L4-L5 level unknown) () (unknown) (no (unknown) (unknown) Biliary colic (units ( unknown) date) unknown) (unknown) (no (unknown) (unknown) Blood Pressure (units (unknown) date) Location Lt radial unknown) (unknown) (no (unknown) (unknown) Chicken pox (units (un known) date) () unknown) (unknown) (no (unknown) (unknown) Chief Complaint (units (unknown) date) unknown) (unknown) (no (unknown) (unknown) Chief Complaint: (units (unknown) date) f/up unknown) hospitalization for suicide attempt (unknown) (no (unknown) (unknown) Chronic hip pain, (units (unknown) date) bilateral unknown) (unknown) (no (unknown) (unknown) Chronic right hip (units (unknown) date) pain unknown) (unknown) (no (unknown) (unknown) Code(s): F90.9 - (units (unknown) date) Attention-deficit unknown) hyperactivity disorder, unspecified type (unknown) (no (unknown) (unknown) Colon polyps (units (u nknown) date) () unknown) (unknown) (no (unknown) (unknown) Confirmed (units (unkn own) date) 08/21/22] unknown) (unknown) (no (unknown) (unknown) DAILY 08/21/22 (units (unknown) date) [History Confirmed unknown) 08/21/22] (unknown) (no (unknown) (unknown) : 1980 (units (unknown) date) Acct:[id number] unknown) (unknown) (no (unknown) (unknown) Date of Last (units (u nknown) date) Menstrual Period: unknown) 08/10/22 (unknown) (no (unknown) (unknown) Denies SI today. (units (unknown) date) unknown) (unknown) (no (unknown) (unknown) Depression (units (unk nown) date) () unknown) (unknown) (no (unknown) (unknown) Depression Type: (units (unknown) date) unspecified unknown) Qualified Code(s): F32.A - Depression, (unknown) (no (unknown) (unknown) Dept at (units (unkno wn) date) . unknown) (unknown) (no (unknown) (unknown) Details: (units (unkno wn) date) unknown) (unknown) (no (unknown) (unknown) Diabetes mellitus (units (unknown) date) unknown) (unknown) (no (unknown) (unknown) Diarrhea (units (unkno wn) date) unknown) (unknown) (no (unknown) (unknown) Discontinued (units (u nknown) date) Reason: Dose unknown) Change 50 mg PO DAILY (unknown) (no (unknown) (unknown) Discontinued (units (u nknown) date) Reason: Provider's unknown) Order 300 mg PO TID (unknown) (no (unknown) (unknown) Discontinued (units (u nknown) date) unknown) (unknown) (no (unknown) (unknown) Documented By: (units (unknown) date) Mari Skinner unknown) 08/21/22 1128 (unknown) (no (unknown) (unknown) Draft (units (unkno wn) date) unknown) (unknown) (no (unknown) (unknown) ER F/u suicidal (units (unknown) date) ideation, unknown) discharge from [facility]. Pt states 'she is having (unknown) (no (unknown) (unknown) Effexor Adverse (units (unknown) date) Reaction (Mild, unknown) Uncoded 08/21/22 11:29) (unknown) (no (unknown) (unknown) Fall (units (unkno wn) date) unknown) (unknown) (no (unknown) (unknown) Family History (units (unknown) date) (Reviewed 08/10/22 unknown) @ 17:32 by IKER Betancourt) (unknown) (no (unknown) (unknown) Father (units (unknown) date) Cancer unknown) (unknown) (no (unknown) (unknown) Fibroids (-2018) (units (unknown) date) unknown) (unknown) (no (unknown) (unknown) Fibromyalgia (units (u nknown) date) unknown) (unknown) (no (unknown) (unknown) [facility] ([facility] date[facility] unknown) (unknown) (no (unknown) (unknown) Forgetfulness (units ( unknown) date) unknown) (unknown) (no (unknown) (unknown) Grandfather Lung (units (unknown) date) cancer unknown) (unknown) (no (unknown) (unknown) Grandmother (units (un known) date) Cancer unknown) (unknown) (no (unknown) (unknown) HPI (units (unkno wn) date) unknown) (unknown) (no (unknown) (unknown) Health Management (units (unknown) date) reviewed with unknown) patient: Yes (unknown) (no (unknown) (unknown) Health Management (units (unknown) date) unknown) (unknown) (no (unknown) (unknown) Heavy menstrual (units (unknown) date) period unknown) (unknown) (no (unknown) (unknown) Height 5 ft 6 in (units (unknown) date) unknown) (unknown) (no (unknown) (unknown) History of (units (unk nown) date) bipolar disorder unknown) (unknown) (no (unknown) (unknown) History of heart (units (unknown) date) disease unknown) (unknown) (no (unknown) (unknown) History of (units (unk nown) date) placement of ear unknown) tubes (-02/08/86) (unknown) (no (unknown) (unknown) History of (units (unk nown) date) recurrent ear unknown) infection (unknown) (no (unknown) (unknown) Hypertension (units (u nknown) date) unknown) (unknown) (no (unknown) (unknown) Intake Note: (units (u nknown) date) unknown) (unknown) (no (unknown) (unknown) Intake performed (units (unknown) date) by: unknown) Marlee Jc (unknown) (no (unknown) (unknown) Intake (units (unkno wn) date) unknown) (unknown) (no (unknown) (unknown) Intake- Clincial (units (unknown) date) Staff unknown) (unknown) (no (unknown) (unknown) Internal Medicine (units (unknown) date) Office Visit unknown) (unknown) (no (unknown) (unknown) Is last menstrual (units (unknown) date) period known: Yes unknown) (unknown) (no (unknown) (unknown) Last Menstural (units (unknown) date) Cycle + Details unknown) (unknown) (no (unknown) (unknown) Left shoulder (units ( unknown) date) pain unknown) (unknown) (no (unknown) (unknown) Liver cancer (units (u nknown) date) unknown) (unknown) (no (unknown) (unknown) Loc: [facility] (units (unkno wn) date) unknown) (unknown) (no (unknown) (unknown) Medical History (units (unknown) date) (Reviewed 08/10/22 unknown) @ 17:32 by IKER Betancourt) (unknown) (no (unknown) (unknown) Medications (units (un known) date) unknown) (unknown) (no (unknown) (unknown) Medications: (units (u nknown) date) unknown) (unknown) (no (unknown) (unknown) Mental health (units ( unknown) date) problem unknown) (unknown) (no (unknown) (unknown) Migraines (-1993) (units (unknown) date) unknown) (unknown) (no (unknown) (unknown) Mother (units (unknown) date) Hyperlipidemia unknown) (unknown) (no (unknown) (unknown) Multi Vitamin (units ( unknown) date) 11/04/17 [History unknown) Confirmed 08/01/22] (unknown) (no (unknown) (unknown) New (units (unkno wn) date) unknown) (unknown) (no (unknown) (unknown) Non-healing wound (units (unknown) date) unknown) (unknown) (no (unknown) (unknown) Not currently (units ( unknown) date) unknown) (unknown) (no (unknown) (unknown) PFSH (units (unkno wn) date) unknown) (unknown) (no (unknown) (unknown) PO .COMPLEX PRN (units (unknown) date) pain #60 tabs unknown) 08/01/22 [Rx] (unknown) (no (unknown) (unknown) Painful menstrual (units (unknown) date) periods unknown) (unknown) (no (unknown) (unknown) Patient: (units (unkno wn) date) Kirsten Deng N unknown) MR#: [id number] (unknown) (no (unknown) (unknown) 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 (unknown) (no (unknown) (unknown) Position Sitting (units (unknown) date) unknown) (unknown) (no (unknown) (unknown) Pulse 78 (units (unkno wn) date) unknown) (unknown) (no (unknown) (unknown) Pulse Oximetry (units (unknown) date) (%) 98 unknown) (unknown) (no (unknown) (unknown) Pulse Source (units (u nknown) date) Monitor unknown) (unknown) (no (unknown) (unknown) Qualifiers: (units (un known) date) unknown) (unknown) (no (unknown) (unknown) Reason For Visit (units (unknown) date) unknown) (unknown) (no (unknown) (unknown) Refilled (units (unkno wn) date) unknown) (unknown) (no (unknown) (unknown) Right shoulder (units (unknown) date) pain unknown) (unknown) (no (unknown) (unknown) Sciatic leg pain (units (unknown) date) unknown) (unknown) (no (unknown) (unknown) Scoliosis (-1989) (units (unknown) date) unknown) (unknown) (no (unknown) (unknown) She is wondering (units (unknown) date) if she can get unknown) 40mg of Adderall. (unknown) (no (unknown) (unknown) Signed By: (units (unk nown) date) unknown) (unknown) (no (unknown) (unknown) Skin changes of (units (unknown) date) breasts unknown) (unknown) (no (unknown) (unknown) Smoking Status: (units (unknown) date) Current some day unknown) smoker (unknown) (no (unknown) (unknown) Social History (units (unknown) date) unknown) (unknown) (no (unknown) (unknown) Status: Chronic (units (unknown) date) unknown) (unknown) (no (unknown) (unknown) Surgical History (units (unknown) date) (Reviewed 08/10/22 unknown) @ 17:32 by IKER Betancourt) (unknown) (no (unknown) (unknown) Take 1 capsule (units (unknown) date) twice per day for unknown) pain 75 mg PO BID 180 caps 3RF (unknown) (no (unknown) (unknown) Take 1 tab daily (units (unknown) date) 100 mg PO DAILY 90 unknown) tabs 0RF F32.9 - Major depressive (unknown) (no (unknown) (unknown) Take 1 tab daily (units (unknown) date) for ADHD 30 mg PO unknown) QAM 30 caps 0RF F90.9 - Attention-deficit (unknown) (no (unknown) (unknown) This note may (units ( unknown) date) have been all or unknown) partially generated using voice recognition (unknown) (no (unknown) (unknown) Thyroid disease (units (unknown) date) unknown) (unknown) (no (unknown) (unknown) Tobacco + (units (unkn own) date) Substance Use unknown) (unknown) (no (unknown) (unknown) Tobacco Status (units (unknown) date) unknown) (unknown) (no (unknown) (unknown) UTI (urinary (units (u nknown) date) tract infection) unknown) (unknown) (no (unknown) (unknown) Vaginal delivery (units (unknown) date) unknown) (unknown) (no (unknown) (unknown) Visit Reasons: ER (units (unknown) date) follow up 03 unknown) (unknown) (no (unknown) (unknown) Vitals (units (unkno wn) date) unknown) (unknown) (no (unknown) (unknown) Weight 237 lb (units ( unknown) date) unknown) (unknown) (no (unknown) (unknown) Wondering if (units (u nknown) date) Lamotragine, she unknown) is taking 2 - 25mg / day. Wondering if this can (unknown) (no (unknown) (unknown) Would like to (units ( unknown) date) discuss her unknown) Adderall, this was decreased to 20mg. (unknown) (no (unknown) (unknown) alcohol intake: (units (unknown) date) never unknown) (unknown) (no (unknown) (unknown) amoxicillin (units (un known) date) Adverse Reaction unknown) (Verified 08/21/22 11:29) (unknown) (no (unknown) (unknown) an appt with (units (u nknown) date) Behavioral Health unknown) 09/13/22. (unknown) (no (unknown) (unknown) at this time is (units (unknown) date) 'dealing with unknown) everyone else,' since her hospitalization. (unknown) (no (unknown) (unknown) be increased. She (units (unknown) date) is willing to try unknown) 100mg/day. (unknown) (no (unknown) (unknown) but Seroquel still (units (unknown) date) at pharmacy. These unknown) meds help. Reports that her greatest issue (unknown) (no (unknown) (unknown) butalbital-acetam (units (unknown) date) inophen-caffeine unknown) 50 mg-325 mg-40 mg tablet See Rx Instructions (unknown) (no (unknown) (unknown) dextroamphetamine (units (unknown) date) -amphetamine 30 mg unknown) ER (unknown) (no (unknown) (unknown) dextroamphetamine (units (unknown) date) -amphetamine ER 10 unknown) mg 24hr capsule,extend release 20 mg PO (unknown) (no (unknown) (unknown) dextroamphetamine (units (unknown) date) -amphetamine ER 30 unknown) mg 24hr capsule,extend release 30 mg PO QAM (unknown) (no (unknown) (unknown) difficulty (units (unkn own) date) integrating back unknown) into society' after being institutionalized. She has (unknown) (no (unknown) (unknown) disorder, single (units (unknown) date) episode, unknown) unspecified, F41.9 - Anxiety disorder, unspecified (unknown) (no (unknown) (unknown) duloxetine 20 mg (units (unknown) date) capsule,delayed unknown) release 20 mg PO DAILY 08/21/22 [History (unknown) (no (unknown) (unknown) gabapentin (units (unk nown) date) unknown) (unknown) (no (unknown) (unknown) have occurred. If (units (unknown) date) there are any unknown) questions, please contact the Medical Records (unknown) (no (unknown) (unknown) hospitalization (units (unknown) date) and for use upon unknown) d/c, has been able to fern picker the Hydroxyzine (unknown) (no (unknown) (unknown) household (units (unkn own) date) members: unknown) significant other and children (unknown) (no (unknown) (unknown) hydroxyzine HCl (units (unknown) date) 50 mg PO QID PRN unknown) 180 tabs 1RF anxiety (unknown) (no (unknown) (unknown) hydroxyzine HCl (units (unknown) date) 50 mg tablet 50 mg unknown) PO QID PRN anxiety #180 tabs 08/21/22 [Rx (unknown) (no (unknown) (unknown) hyperactivity (units ( unknown) date) disorder, unknown) unspecified type (unknown) (no (unknown) (unknown) lamotrigine 100 (units (unknown) date) mg tablet 100 mg unknown) PO DAILY #90 tabs 08/21/22 [Rx Confirmed (unknown) (no (unknown) (unknown) lamotrigine (units (un known) date) unknown) (unknown) (no (unknown) (unknown) marital status: (units (unknown) date) unmarried,living unknown) together (unknown) (no (unknown) (unknown) may occur. (units (unk nown) date) Occasional unknown) wrong-word or 'sound-alike' substitutions may have (unknown) (no (unknown) (unknown) occupational (units (u nknown) date) status: employed unknown) (unknown) (no (unknown) (unknown) occurred due to (units (unknown) date) the inherent unknown) limitations of voice recognition software. Please (unknown) (no (unknown) (unknown) of following (units (u nknown) date) through on her unknown) plan to take all of her medications at one time, so (unknown) (no (unknown) (unknown) pregabalin 75 mg (units (unknown) date) capsule 75 mg PO unknown) BID #180 caps 08/21/22 [Rx Confirmed 08/21/22] (unknown) (no (unknown) (unknown) pregabalin (units (unk nown) date) unknown) (unknown) (no (unknown) (unknown) quetiapine 100 mg (units (unknown) date) PO .q 6 hours 180 unknown) tabs 1RF (unknown) (no (unknown) (unknown) quetiapine 100 mg (units (unknown) date) tablet 100 mg PO unknown) .q 6 hours #180 tabs 08/21/22 [Rx Confirmed (unknown) (no (unknown) (unknown) read the note (units ( unknown) date) carefully and unknown) recognize, using context, where these substitutions (unknown) (no (unknown) (unknown) she called 911 (units (unknown) date) and was unknown) hospitalized at [facility] from 3/3 at midnight until 10am (unknown) (no (unknown) (unknown) software. (units (unkn own) date) Although every unknown) effort is made to edit content, cathode builder errors (unknown) (no (unknown) (unknown) substance use (units ( unknown) date) type: does not use unknown) (unknown) (no (unknown) (unknown) suicidality. She (units (unknown) date) had a plan. Her 15 unknown) year old daughter was at home and instead (unknown) (no (unknown) (unknown) trazodone 100 mg (units (unknown) date) tablet 100 mg PO unknown) BEDTIME 08/21/22 [History Confirmed 08/21/22] (unknown) (no (unknown) (unknown) unspecified (units (un known) date) unknown) (unknown) (no (unknown) (unknown) valacyclovir 500 (units (unknown) date) mg tablet 500 mg unknown) PO BID 08/21/22 [History Confirmed 08/21/22] Result panel 123 (unknown) (no (unknown) (unknown) (no value) (units (unk nown) date) unknown) (unknown) (no (unknown) (unknown) #30 caps 08/21/22 (units (unknown) date) [Rx Confirmed unknown) 08/21/22] (unknown) (no (unknown) (unknown) (1) Depression: (units (unknown) date) unknown) (unknown) (no (unknown) (unknown) (2) ADHD: (units (unkn own) date) unknown) (unknown) (no (unknown) (unknown) (3) Suicidal (units (u nknown) date) ideation: unknown) (unknown) (no (unknown) (unknown) (4) Fibromyalgia: (units (unknown) date) unknown) (unknown) (no (unknown) (unknown) (5) Headache: (units ( unknown) date) unknown) (unknown) (no (unknown) (unknown) (6) Back pain at (units (unknown) date) L4-L5 level: unknown) (unknown) (no (unknown) (unknown) 08/21/22 (units (unkno wn) date) unknown) (unknown) (no (unknown) (unknown) 08/21/22] (units (unkn own) date) unknown) (unknown) (no (unknown) (unknown) 11:36 (units (unkno wn) date) unknown) (unknown) (no (unknown) (unknown) [id number] (units (unkno wn) date) unknown) (unknown) (no (unknown) (unknown) 41F presents f/up (units (unknown) date) recent in patient unknown) treatment for SI. She has difficulty staying (unknown) (no (unknown) (unknown) 41F with PMH (units (u nknown) date) recent unknown) hospitalization for her severe depression and feelings of (unknown) (no (unknown) (unknown) ADHD (-1982) (units (u nknown) date) unknown) (unknown) (no (unknown) (unknown) Abnormal Pap (units (u nknown) date) smear of cervix unknown) () (unknown) (no (unknown) (unknown) Add'l Plan (units (unk nown) date) Details unknown) (unknown) (no (unknown) (unknown) Add'l Plan*: (units (u nknown) date) unknown) (unknown) (no (unknown) (unknown) Affect: animated (units (unknown) date) unknown) (unknown) (no (unknown) (unknown) Age/Sex: 41 / F (units (unknown) date) Date of Service: unknown) (unknown) (no (unknown) (unknown) Allergies () (units (unknown) date) unknown) (unknown) (no (unknown) (unknown) Allergies (units (unkn own) date) unknown) (unknown) (no (unknown) (unknown) [place] (units ( unknown) date) [address] unknown) (unknown) (no (unknown) (unknown) Anesthesia (units (unk nown) date) unknown) (unknown) (no (unknown) (unknown) Anxiety (-2002) (units (unknown) date) unknown) (unknown) (no (unknown) (unknown) Appearance: (units (un known) date) grossly normal and unknown) well kempt (unknown) (no (unknown) (unknown) Assessment + Plan (units (unknown) date) unknown) (unknown) (no (unknown) (unknown) Attending Dr: (units ( unknown) date) Mari DONG unknown) (unknown) (no (unknown) (unknown) Attention (units (unkn own) date) deficit-hyperactiv unknown) ity disorder type: unspecified Qualified (unknown) (no (unknown) (unknown) Attitude: (units (unkn own) date) cooperative unknown) (unknown) (no (unknown) (unknown) BMI 38.2 (units (unkno wn) date) unknown) (unknown) (no (unknown) (unknown) BP 96/62 (units (unkno wn) date) unknown) (unknown) (no (unknown) (unknown) Back pain at (units (u nknown) date) L4-L5 level unknown) () (unknown) (no (unknown) (unknown) Biliary colic (units ( unknown) date) unknown) (unknown) (no (unknown) (unknown) Blood Pressure (units (unknown) date) Location Lt radial unknown) (unknown) (no (unknown) (unknown) Chicken pox (units (un known) date) () unknown) (unknown) (no (unknown) (unknown) Chief Complaint (units (unknown) date) unknown) (unknown) (no (unknown) (unknown) Chief Complaint: (units (unknown) date) f/up unknown) hospitalization for suicide attempt (unknown) (no (unknown) (unknown) Chronic hip pain, (units (unknown) date) bilateral unknown) (unknown) (no (unknown) (unknown) Chronic right hip (units (unknown) date) pain unknown) (unknown) (no (unknown) (unknown) Code(s): F90.9 - (units (unknown) date) Attention-deficit unknown) hyperactivity disorder, unspecified type (unknown) (no (unknown) (unknown) Colon polyps (units (u nknown) date) () unknown) (unknown) (no (unknown) (unknown) Confirmed (units (unkn own) date) 08/21/22] unknown) (unknown) (no (unknown) (unknown) Const (units (unkno wn) date) unknown) (unknown) (no (unknown) (unknown) DAILY 08/21/22 (units (unknown) date) [History Confirmed unknown) 08/21/22] (unknown) (no (unknown) (unknown) : 1980 (units (unknown) date) Acct:[id number] unknown) (unknown) (no (unknown) (unknown) Date of Last (units (u nknown) date) Menstrual Period: unknown) 08/10/22 (unknown) (no (unknown) (unknown) Denies SI today. (units (unknown) date) unknown) (unknown) (no (unknown) (unknown) Depression (units (unk nown) date) () unknown) (unknown) (no (unknown) (unknown) Depression Type: (units (unknown) date) unspecified unknown) Qualified Code(s): F32.A - Depression, (unknown) (no (unknown) (unknown) Dept at (units (unkno wn) date) . unknown) (unknown) (no (unknown) (unknown) Details: (units (unkno wn) date) unknown) (unknown) (no (unknown) (unknown) Diabetes mellitus (units (unknown) date) unknown) (unknown) (no (unknown) (unknown) Diarrhea (units (unkno wn) date) unknown) (unknown) (no (unknown) (unknown) Discontinued (units (u nknown) date) Reason: Dose unknown) Change 50 mg PO DAILY (unknown) (no (unknown) (unknown) Discontinued (units (u nknown) date) Reason: Provider's unknown) Order 300 mg PO TID (unknown) (no (unknown) (unknown) Discontinued (units (u nknown) date) unknown) (unknown) (no (unknown) (unknown) Documented By: (units (unknown) date) Mari Skinner unknown) 08/21/22 1128 (unknown) (no (unknown) (unknown) Draft (units (unkno wn) date) unknown) (unknown) (no (unknown) (unknown) ER F/u suicidal (units (unknown) date) ideation, unknown) discharge from [facility]. Pt states 'she is having (unknown) (no (unknown) (unknown) Effexor Adverse (units (unknown) date) Reaction (Mild, unknown) Uncoded 08/21/22 11:29) (unknown) (no (unknown) (unknown) Effort + (units (unkno wn) date) Inspection: normal unknown) respiratory effort and able to speak in complete (unknown) (no (unknown) (unknown) Exam Narrative (units (unknown) date) unknown) (unknown) (no (unknown) (unknown) Exam Narrative: (units (unknown) date) unknown) (unknown) (no (unknown) (unknown) Exam (units (unkno wn) date) unknown) (unknown) (no (unknown) (unknown) Extrem (units (unkno wn) date) unknown) (unknown) (no (unknown) (unknown) Fall (units (unkno wn) date) unknown) (unknown) (no (unknown) (unknown) Family History (units (unknown) date) (Reviewed 08/21/22 unknown) @ 13:44 by IKER Ying) (unknown) (no (unknown) (unknown) Father (units (unknown) date) Cancer unknown) (unknown) (no (unknown) (unknown) Fibroids (-2018) (units (unknown) date) unknown) (unknown) (no (unknown) (unknown) Fibromyalgia (units (u nknown) date) unknown) (unknown) (no (unknown) (unknown) [facility]) (unknown) (no (unknown) (unknown) Forgetfulness (units ( unknown) date) unknown) (unknown) (no (unknown) (unknown) General: (units (unkno wn) date) cooperative, unknown) healthy appearing, comfortable, no acute distress, well (unknown) (no (unknown) (unknown) General: normal (units (unknown) date) to inspection unknown) (unknown) (no (unknown) (unknown) General: patient (units (unknown) date) oriented x3 unknown) (unknown) (no (unknown) (unknown) Grandfather Lung (units (unknown) date) cancer unknown) (unknown) (no (unknown) (unknown) Grandmother (units (un known) date) Cancer unknown) (unknown) (no (unknown) (unknown) HPI (units (unkno wn) date) unknown) (unknown) (no (unknown) (unknown) Headache (units (unkno wn) date) chronicity unknown) pattern: chronic headache Headache type: tension (unknown) (no (unknown) (unknown) Health Management (units (unknown) date) reviewed with unknown) patient: Yes (unknown) (no (unknown) (unknown) Health Management (units (unknown) date) unknown) (unknown) (no (unknown) (unknown) Heavy menstrual (units (unknown) date) period unknown) (unknown) (no (unknown) (unknown) Height 5 ft 6 in (units (unknown) date) unknown) (unknown) (no (unknown) (unknown) History of (units (unk nown) date) bipolar disorder unknown) (unknown) (no (unknown) (unknown) History of heart (units (unknown) date) disease unknown) (unknown) (no (unknown) (unknown) History of (units (unk nown) date) placement of ear unknown) tubes (-02/08/86) (unknown) (no (unknown) (unknown) History of (units (unk nown) date) recurrent ear unknown) infection (unknown) (no (unknown) (unknown) Hypertension (units (u nknown) date) unknown) (unknown) (no (unknown) (unknown) Intake Note: (units (u nknown) date) unknown) (unknown) (no (unknown) (unknown) Intake performed (units (unknown) date) by: unknown) Marlee Jc (unknown) (no (unknown) (unknown) Intake (units (unkno wn) date) unknown) (unknown) (no (unknown) (unknown) Intake- Clincial (units (unknown) date) Staff unknown) (unknown) (no (unknown) (unknown) Internal Medicine (units (unknown) date) Office Visit unknown) (unknown) (no (unknown) (unknown) Is last menstrual (units (unknown) date) period known: Yes unknown) (unknown) (no (unknown) (unknown) Judgment: fair (units (unknown) date) unknown) (unknown) (no (unknown) (unknown) Last Menstural (units (unknown) date) Cycle + Details unknown) (unknown) (no (unknown) (unknown) Left shoulder (units ( unknown) date) pain unknown) (unknown) (no (unknown) (unknown) Liver cancer (units (u nknown) date) unknown) (unknown) (no (unknown) (unknown) Loc: [facility] (units (unkno wn) date) unknown) (unknown) (no (unknown) (unknown) Medical History (units (unknown) date) (Reviewed 08/21/22 unknown) @ 13:44 by IKER Ying) (unknown) (no (unknown) (unknown) Medications (units (un known) date) unknown) (unknown) (no (unknown) (unknown) Medications: (units (u nknown) date) unknown) (unknown) (no (unknown) (unknown) Mental Status: (units (unknown) date) mental status unknown) grossly normal (unknown) (no (unknown) (unknown) Mental health (units ( unknown) date) problem unknown) (unknown) (no (unknown) (unknown) Migraines (-1993) (units (unknown) date) unknown) (unknown) (no (unknown) (unknown) Mood: congruent (units (unknown) date) mood unknown) (unknown) (no (unknown) (unknown) Mother (units (unknown) date) Hyperlipidemia unknown) (unknown) (no (unknown) (unknown) Multi Vitamin (units ( unknown) date) 11/04/17 [History unknown) Confirmed 08/01/22] (unknown) (no (unknown) (unknown) Neuro (units (unkno wn) date) unknown) (unknown) (no (unknown) (unknown) New (units (unkno wn) date) unknown) (unknown) (no (unknown) (unknown) Non-healing wound (units (unknown) date) unknown) (unknown) (no (unknown) (unknown) Not currently (units ( unknown) date) unknown) (unknown) (no (unknown) (unknown) Nutritional (units (un known) date) Appearance: obese unknown) (class 2) (unknown) (no (unknown) (unknown) Orientation: (units (u nknown) date) oriented x3 unknown) (unknown) (no (unknown) (unknown) PFSH (units (unkno wn) date) unknown) (unknown) (no (unknown) (unknown) PO .COMPLEX PRN (units (unknown) date) pain #60 tabs unknown) 08/01/22 [Rx] (unknown) (no (unknown) (unknown) Painful menstrual (units (unknown) date) periods unknown) (unknown) (no (unknown) (unknown) Patient treated (units (unknown) date) inpatient for SI unknown) recently. (unknown) (no (unknown) (unknown) Patient: (units (unkno wn) date) Kirsten Deng N unknown) MR#: [id number] (unknown) (no (unknown) (unknown) 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 (unknown) (no (unknown) (unknown) Position Sitting (units (unknown) date) unknown) (unknown) (no (unknown) (unknown) Psych (units (unkno wn) date) unknown) (unknown) (no (unknown) (unknown) Pulse 78 (units (unkno wn) date) unknown) (unknown) (no (unknown) (unknown) Pulse Oximetry (units (unknown) date) (%) 98 unknown) (unknown) (no (unknown) (unknown) Pulse Source (units (u nknown) date) Monitor unknown) (unknown) (no (unknown) (unknown) Qualifiers: (units (un known) date) unknown) (unknown) (no (unknown) (unknown) ROS (units (unkno wn) date) unknown) (unknown) (no (unknown) (unknown) Reason For Visit (units (unknown) date) unknown) (unknown) (no (unknown) (unknown) Refilled (units (unkno wn) date) unknown) (unknown) (no (unknown) (unknown) Reports as per (units (unknown) date) HPI unknown) (unknown) (no (unknown) (unknown) Reports that her (units (unknown) date) greatest issue at unknown) this time is 'dealing with everyone else,' (unknown) (no (unknown) (unknown) Resp (units (unkno wn) date) unknown) (unknown) (no (unknown) (unknown) Right shoulder (units (unknown) date) pain unknown) (unknown) (no (unknown) (unknown) Sciatic leg pain (units (unknown) date) unknown) (unknown) (no (unknown) (unknown) Scoliosis (-1989) (units (unknown) date) unknown) (unknown) (no (unknown) (unknown) Signed By: (units (unk nown) date) unknown) (unknown) (no (unknown) (unknown) Skin changes of (units (unknown) date) breasts unknown) (unknown) (no (unknown) (unknown) Smoking Status: (units (unknown) date) Current some day unknown) smoker (unknown) (no (unknown) (unknown) Social History (units (unknown) date) unknown) (unknown) (no (unknown) (unknown) Speech and (units (unk nown) date) Movement: agitated unknown) and restless (unknown) (no (unknown) (unknown) Status: Acute (units ( unknown) date) unknown) (unknown) (no (unknown) (unknown) Status: Chronic (units (unknown) date) unknown) (unknown) (no (unknown) (unknown) Surgical History (units (unknown) date) (Reviewed 08/21/22 unknown) @ 13:44 by IKER Ying) (unknown) (no (unknown) (unknown) Take 1 capsule (units (unknown) date) twice per day for unknown) pain 75 mg PO BID 180 caps 3RF (unknown) (no (unknown) (unknown) Take 1 tab daily (units (unknown) date) 100 mg PO DAILY 90 unknown) tabs 0RF F32.9 - Major depressive (unknown) (no (unknown) (unknown) Take 1 tab daily (units (unknown) date) for ADHD 30 mg PO unknown) QAM 30 caps 0RF F90.9 - Attention-deficit (unknown) (no (unknown) (unknown) This note may (units ( unknown) date) have been all or unknown) partially generated using voice recognition (unknown) (no (unknown) (unknown) Thought Content: (units (unknown) date) compulsions unknown) (unknown) (no (unknown) (unknown) Thought Process: (units (unknown) date) flight of ideas unknown) (unknown) (no (unknown) (unknown) Thyroid disease (units (unknown) date) unknown) (unknown) (no (unknown) (unknown) Tobacco + (units (unkn own) date) Substance Use unknown) (unknown) (no (unknown) (unknown) Tobacco Status (units (unknown) date) unknown) (unknown) (no (unknown) (unknown) UTI (urinary (units (u nknown) date) tract infection) unknown) (unknown) (no (unknown) (unknown) Vaginal delivery (units (unknown) date) unknown) (unknown) (no (unknown) (unknown) Visit Reasons: ER (units (unknown) date) follow up 03 unknown) (unknown) (no (unknown) (unknown) Vitals (units (unkno wn) date) unknown) (unknown) (no (unknown) (unknown) Weight 237 lb (units ( unknown) date) unknown) (unknown) (no (unknown) (unknown) Wondering if (units (u nknown) date) Lamotragine, she unknown) is taking 2 - 25mg / day can be increased. She is (unknown) (no (unknown) (unknown) Would like to (units ( unknown) date) discuss her unknown) Adderall, this was decreased to 20mg during her stay (unknown) (no (unknown) (unknown) alcohol intake: (units (unknown) date) never unknown) (unknown) (no (unknown) (unknown) amoxicillin (units (un known) date) Adverse Reaction unknown) (Verified 08/21/22 11:29) (unknown) (no (unknown) (unknown) an appt with (units (u nknown) date) Behavioral Health unknown) 09/13/22. (unknown) (no (unknown) (unknown) at one time, she (units (unknown) date) called 911 and was unknown) hospitalized at [facility] from 08/10 at midnight (unknown) (no (unknown) (unknown) butalbital-acetam (units (unknown) date) inophen-caffeine unknown) 50 mg-325 mg-40 mg tablet See Rx Instructions (unknown) (no (unknown) (unknown) developed and (units ( unknown) date) well groomed unknown) (unknown) (no (unknown) (unknown) dextroamphetamine (units (unknown) date) -amphetamine 30 mg unknown) ER (unknown) (no (unknown) (unknown) dextroamphetamine (units (unknown) date) -amphetamine ER 10 unknown) mg 24hr capsule,extend release 20 mg PO (unknown) (no (unknown) (unknown) dextroamphetamine (units (unknown) date) -amphetamine ER 30 unknown) mg 24hr capsule,extend release 30 mg PO QAM (unknown) (no (unknown) (unknown) difficulty (units (unkn own) date) integrating back unknown) into society' after being institutionalized. She has (unknown) (no (unknown) (unknown) disorder, single (units (unknown) date) episode, unknown) unspecified, F41.9 - Anxiety disorder, unspecified (unknown) (no (unknown) (unknown) duloxetine 20 mg (units (unknown) date) capsule,delayed unknown) release 20 mg PO DAILY 08/21/22 [History (unknown) (no (unknown) (unknown) for as needed use (units (unknown) date) during her unknown) hospitalization and for use upon d/c, has been able (unknown) (no (unknown) (unknown) gabapentin (units (unk nown) date) unknown) (unknown) (no (unknown) (unknown) have occurred. If (units (unknown) date) there are any unknown) questions, please contact the Medical Records (unknown) (no (unknown) (unknown) home and instead (units (unknown) date) of following unknown) through on her plan to take all of her medications (unknown) (no (unknown) (unknown) household (units (unkn own) date) members: unknown) significant other and children (unknown) (no (unknown) (unknown) hydroxyzine HCl (units (unknown) date) 50 mg PO QID PRN unknown) 180 tabs 1RF anxiety (unknown) (no (unknown) (unknown) hydroxyzine HCl (units (unknown) date) 50 mg tablet 50 mg unknown) PO QID PRN anxiety #180 tabs 08/21/22 [Rx (unknown) (no (unknown) (unknown) hyperactivity (units ( unknown) date) disorder, unknown) unspecified type (unknown) (no (unknown) (unknown) in inpatient (units (u nknown) date) treatment and she unknown) is unable to keep on task or think clearly right (unknown) (no (unknown) (unknown) lamotrigine 100 (units (unknown) date) mg tablet 100 mg unknown) PO DAILY #90 tabs 08/21/22 [Rx Confirmed (unknown) (no (unknown) (unknown) lamotrigine (units (un known) date) unknown) (unknown) (no (unknown) (unknown) marital status: (units (unknown) date) unmarried,living unknown) together (unknown) (no (unknown) (unknown) may occur. (units (unk nown) date) Occasional unknown) wrong-word or 'sound-alike' substitutions may have (unknown) (no (unknown) (unknown) now due to her (units (unknown) date) ADD symptoms. She unknown) is wondering if she can get 40mg of Adderall. (unknown) (no (unknown) (unknown) occupational (units (u nknown) date) status: employed unknown) (unknown) (no (unknown) (unknown) occurred due to (units (unknown) date) the inherent unknown) limitations of voice recognition software. Please (unknown) (no (unknown) (unknown) on topic today, (units (unknown) date) states her unknown) 'thoughts are racing.' (unknown) (no (unknown) (unknown) patients who have (units (unknown) date) schizophrenia. She unknown) was prescribed Seroquel and Hydroxyzine (unknown) (no (unknown) (unknown) pregabalin 75 mg (units (unknown) date) capsule 75 mg PO unknown) BID #180 caps 08/21/22 [Rx Confirmed 08/21/22] (unknown) (no (unknown) (unknown) pregabalin (units (unk nown) date) unknown) (unknown) (no (unknown) (unknown) quetiapine 100 mg (units (unknown) date) PO .q 6 hours 180 unknown) tabs 1RF (unknown) (no (unknown) (unknown) quetiapine 100 mg (units (unknown) date) tablet 100 mg PO unknown) .q 6 hours #180 tabs 08/21/22 [Rx Confirmed (unknown) (no (unknown) (unknown) read the note (units ( unknown) date) carefully and unknown) recognize, using context, where these substitutions (unknown) (no (unknown) (unknown) sentences (units (unkn own) date) unknown) (unknown) (no (unknown) (unknown) since her (units (unkn own) date) hospitalization. unknown) (unknown) (no (unknown) (unknown) software. (units (unkn own) date) Although every unknown) effort is made to edit content, cathode builder errors (unknown) (no (unknown) (unknown) substance use (units ( unknown) date) type: does not use unknown) (unknown) (no (unknown) (unknown) suicidality. She (units (unknown) date) reports she had a unknown) plan but her 17 year old daughter was at (unknown) (no (unknown) (unknown) tension-type (units (u nknown) date) headache, not unknown) intractable (unknown) (no (unknown) (unknown) to fern picker the (units (unknown) date) Hydroxyzine but unknown) Seroquel still at pharmacy. These meds help. (unknown) (no (unknown) (unknown) trazodone 100 mg (units (unknown) date) tablet 100 mg PO unknown) BEDTIME 08/21/22 [History Confirmed 08/21/22] (unknown) (no (unknown) (unknown) type (units (unkno wn) date) Intractability: unknown) not intractable Qualified Code(s): G44.229 - Chronic (unknown) (no (unknown) (unknown) unspecified (units (un known) date) unknown) (unknown) (no (unknown) (unknown) until 10am 08/15/22. (units (unknown) date) Reports the stay unknown) was 'eye opening,' was afraid of some of the (unknown) (no (unknown) (unknown) valacyclovir 500 (units (unknown) date) mg tablet 500 mg unknown) PO BID 08/21/22 [History Confirmed 08/21/22] (unknown) (no (unknown) (unknown) willing to try (units (unknown) date) 100mg/day. unknown) Result panel 124 (unknown) (no (unknown) (unknown) (no value) (units (unk nown) date) unknown) (unknown) (no (unknown) (unknown) #30 caps 08/21/22 (units (unknown) date) [Rx Confirmed unknown) 08/21/22] (unknown) (no (unknown) (unknown) (1) Depression: (units (unknown) date) unknown) (unknown) (no (unknown) (unknown) (2) ADHD: (units (unkn own) date) unknown) (unknown) (no (unknown) (unknown) (3) Suicidal (units (u nknown) date) ideation: unknown) (unknown) (no (unknown) (unknown) (4) Fibromyalgia: (units (unknown) date) unknown) (unknown) (no (unknown) (unknown) (5) Headache: (units ( unknown) date) unknown) (unknown) (no (unknown) (unknown) (6) Back pain at (units (unknown) date) L4-L5 level: unknown) (unknown) (no (unknown) (unknown) 08/21/22 1425 (units ( unknown) date) unknown) (unknown) (no (unknown) (unknown) 08/21/22 (units (unkno wn) date) unknown) (unknown) (no (unknown) (unknown) 08/21/22] (units (unkn own) date) unknown) (unknown) (no (unknown) (unknown) 11:36 (units (unkno wn) date) unknown) (unknown) (no (unknown) (unknown) [id number] (units (unkno wn) date) unknown) (unknown) (no (unknown) (unknown) 200mg/day if (units (u nknown) date) tolerated when she unknown) follows up in September. (unknown) (no (unknown) (unknown) 41F presents f/up (units (unknown) date) recent in patient unknown) treatment for SI. She has difficulty staying (unknown) (no (unknown) (unknown) 41F with PMH (units (u nknown) date) recent unknown) hospitalization for her severe depression and feelings of (unknown) (no (unknown) (unknown) 75mg twice per (units (unknown) date) day, and see how unknown) she does on this dose. If she does not (unknown) (no (unknown) (unknown) ADD: Recommend we (units (unknown) date) increase ADHD meds unknown) to 30mg/day (was previously 40mg/day) and (unknown) (no (unknown) (unknown) ADHD (-1982) (units (u nknown) date) unknown) (unknown) (no (unknown) (unknown) Abnormal Pap (units (u nknown) date) smear of cervix unknown) (-2017) (unknown) (no (unknown) (unknown) Add'l Plan (units (unk nown) date) Details unknown) (unknown) (no (unknown) (unknown) Add'l Plan*: (units (u nknown) date) unknown) (unknown) (no (unknown) (unknown) Affect: animated (units (unknown) date) unknown) (unknown) (no (unknown) (unknown) Age/Sex: 41 / F (units (unknown) date) Date of Service: unknown) (unknown) (no (unknown) (unknown) Allergies () (units (unknown) date) unknown) (unknown) (no (unknown) (unknown) Allergies (units (unkn own) date) unknown) (unknown) (no (unknown) (unknown) [place], [place] (units ( unknown) date) [id number] unknown) (unknown) (no (unknown) (unknown) Anesthesia (units (unk nown) date) unknown) (unknown) (no (unknown) (unknown) Anxiety (-2002) (units (unknown) date) unknown) (unknown) (no (unknown) (unknown) Appearance: (units (un known) date) grossly normal and unknown) well kempt (unknown) (no (unknown) (unknown) Assessment + Plan (units (unknown) date) unknown) (unknown) (no (unknown) (unknown) Attending Dr: (units ( unknown) date) Mari Skinner ACCOUNT REVIEW SPECIALIST unknown) (unknown) (no (unknown) (unknown) Attention (units (unkn own) date) deficit-hyperactiv unknown) ity disorder type: unspecified Qualified (unknown) (no (unknown) (unknown) Attitude: (units (unkn own) date) cooperative unknown) (unknown) (no (unknown) (unknown) BMI 38.2 (units (unkno wn) date) unknown) (unknown) (no (unknown) (unknown) BP 96/62 (units (unkno wn) date) unknown) (unknown) (no (unknown) (unknown) Back pain at (units (u nknown) date) L4-L5 level unknown) () (unknown) (no (unknown) (unknown) Biliary colic (units ( unknown) date) unknown) (unknown) (no (unknown) (unknown) Blood Pressure (units (unknown) date) Location Lt radial unknown) (unknown) (no (unknown) (unknown) Chicken pox (units (un known) date) () unknown) (unknown) (no (unknown) (unknown) Chief Complaint (units (unknown) date) unknown) (unknown) (no (unknown) (unknown) Chief Complaint: (units (unknown) date) f/up unknown) hospitalization for suicide attempt (unknown) (no (unknown) (unknown) Chronic hip pain, (units (unknown) date) bilateral unknown) (unknown) (no (unknown) (unknown) Chronic right hip (units (unknown) date) pain unknown) (unknown) (no (unknown) (unknown) Code(s): F90.9 - (units (unknown) date) Attention-deficit unknown) hyperactivity disorder, unspecified type (unknown) (no (unknown) (unknown) Colon polyps (units (u nknown) date) () unknown) (unknown) (no (unknown) (unknown) Confirmed (units (unkn own) date) 08/21/22] unknown) (unknown) (no (unknown) (unknown) Const (units (unkno wn) date) unknown) (unknown) (no (unknown) (unknown) DAILY 08/21/22 (units (unknown) date) [History Confirmed unknown) 08/21/22] (unknown) (no (unknown) (unknown) : 1980 (units (unknown) date) Acct:[id number] unknown) (unknown) (no (unknown) (unknown) Date of Last (units (u nknown) date) Menstrual Period: unknown) 08/10/22 (unknown) (no (unknown) (unknown) Denies SI today. (units (unknown) date) unknown) (unknown) (no (unknown) (unknown) Depression (units (unk nown) date) () unknown) (unknown) (no (unknown) (unknown) Depression Type: (units (unknown) date) unspecified unknown) Qualified Code(s): F32.A - Depression, (unknown) (no (unknown) (unknown) Depression: (units (un known) date) Currently denies unknown) SI. She seems committed to counseling. We will (unknown) (no (unknown) (unknown) Dept at (units (unkno wn) date) . unknown) (unknown) (no (unknown) (unknown) Details: (units (unkno wn) date) unknown) (unknown) (no (unknown) (unknown) Diabetes mellitus (units (unknown) date) unknown) (unknown) (no (unknown) (unknown) Diarrhea (units (unkno wn) date) unknown) (unknown) (no (unknown) (unknown) Discontinued (units (u nknown) date) Reason: Dose unknown) Change 50 mg PO DAILY (unknown) (no (unknown) (unknown) Discontinued (units (u nknown) date) Reason: Provider's unknown) Order 300 mg PO TID (unknown) (no (unknown) (unknown) Discontinued (units (u nknown) date) unknown) (unknown) (no (unknown) (unknown) Documented By: (units (unknown) date) Mari Skinner unknown) 08/21/22 1128 (unknown) (no (unknown) (unknown) ER F/u suicidal (units (unknown) date) ideation, unknown) discharge from [facility]. Pt states 'she is having (unknown) (no (unknown) (unknown) Effexor Adverse (units (unknown) date) Reaction (Mild, unknown) Uncoded 08/21/22 11:29) (unknown) (no (unknown) (unknown) Effort + (units (unkno wn) date) Inspection: normal unknown) respiratory effort and able to speak in complete (unknown) (no (unknown) (unknown) Exam Narrative (units (unknown) date) unknown) (unknown) (no (unknown) (unknown) Exam Narrative: (units (unknown) date) unknown) (unknown) (no (unknown) (unknown) Exam (units (unkno wn) date) unknown) (unknown) (no (unknown) (unknown) Extrem (units (unkno wn) date) unknown) (unknown) (no (unknown) (unknown) Fall (units (unkno wn) date) unknown) (unknown) (no (unknown) (unknown) Family History (units (unknown) date) (Reviewed 08/21/22 unknown) @ 13:44 by IKER Ying) (unknown) (no (unknown) (unknown) Father (units (unknown) date) Cancer unknown) (unknown) (no (unknown) (unknown) Fibroids (-2017) (units (unknown) date) unknown) (unknown) (no (unknown) (unknown) Fibromyalgia (units (u nknown) date) unknown) (unknown) (no (unknown) (unknown) [facility]) (unknown) (no (unknown) (unknown) Forgetfulness (units ( unknown) date) unknown) (unknown) (no (unknown) (unknown) General: (units (unkno wn) date) cooperative, unknown) healthy appearing, comfortable, no acute distress, well (unknown) (no (unknown) (unknown) General: normal (units (unknown) date) to inspection unknown) (unknown) (no (unknown) (unknown) General: patient (units (unknown) date) oriented x3 unknown) (unknown) (no (unknown) (unknown) Grandfather Lung (units (unknown) date) cancer unknown) (unknown) (no (unknown) (unknown) Grandmother (units (un known) date) Cancer unknown) (unknown) (no (unknown) (unknown) HPI (units (unkno wn) date) unknown) (unknown) (no (unknown) (unknown) Headache (units (unkno wn) date) chronicity unknown) pattern: chronic headache Headache type: tension (unknown) (no (unknown) (unknown) Headache: (units (unkn own) date) Continue Fioricet unknown) as prescribed. (unknown) (no (unknown) (unknown) Health Management (units (unknown) date) reviewed with unknown) patient: Yes (unknown) (no (unknown) (unknown) Health Management (units (unknown) date) unknown) (unknown) (no (unknown) (unknown) Heavy menstrual (units (unknown) date) period unknown) (unknown) (no (unknown) (unknown) Height 5 ft 6 in (units (unknown) date) unknown) (unknown) (no (unknown) (unknown) History of (units (unk nown) date) bipolar disorder unknown) (unknown) (no (unknown) (unknown) History of heart (units (unknown) date) disease unknown) (unknown) (no (unknown) (unknown) History of (units (unk nown) date) placement of ear unknown) tubes (02/08/86) (unknown) (no (unknown) (unknown) History of (units (unk nown) date) recurrent ear unknown) infection (unknown) (no (unknown) (unknown) Hypertension (units (u nknown) date) unknown) (unknown) (no (unknown) (unknown) Intake Note: (units (u nknown) date) unknown) (unknown) (no (unknown) (unknown) Intake performed (units (unknown) date) by: unknown) Marlee Jc (unknown) (no (unknown) (unknown) Intake (units (unkno wn) date) unknown) (unknown) (no (unknown) (unknown) Intake- Clincial (units (unknown) date) Staff unknown) (unknown) (no (unknown) (unknown) Internal Medicine (units (unknown) date) Office Visit unknown) (unknown) (no (unknown) (unknown) Is last menstrual (units (unknown) date) period known: Yes unknown) (unknown) (no (unknown) (unknown) Judgment: fair (units (unknown) date) unknown) (unknown) (no (unknown) (unknown) Last Menstural (units (unknown) date) Cycle + Details unknown) (unknown) (no (unknown) (unknown) Left shoulder (units ( unknown) date) pain unknown) (unknown) (no (unknown) (unknown) Liver cancer (units (u nknown) date) unknown) (unknown) (no (unknown) (unknown) Loc: [facility] (units (unkno wn) date) unknown) (unknown) (no (unknown) (unknown) Medical History (units (unknown) date) (Reviewed 08/21/22 unknown) @ 13:44 by IKER Ying) (unknown) (no (unknown) (unknown) Medications (units (un known) date) unknown) (unknown) (no (unknown) (unknown) Medications: (units (u nknown) date) unknown) (unknown) (no (unknown) (unknown) Mental Status: (units (unknown) date) mental status unknown) grossly normal (unknown) (no (unknown) (unknown) Mental health (units ( unknown) date) problem unknown) (unknown) (no (unknown) (unknown) Migraines (-1993) (units (unknown) date) unknown) (unknown) (no (unknown) (unknown) Mood: congruent (units (unknown) date) mood unknown) (unknown) (no (unknown) (unknown) Mother (units (unknown) date) Hyperlipidemia unknown) (unknown) (no (unknown) (unknown) Multi Vitamin (units ( unknown) date) 11/04/17 [History unknown) Confirmed 08/01/22] (unknown) (no (unknown) (unknown) Neuro (units (unkno wn) date) unknown) (unknown) (no (unknown) (unknown) New (units (unkno wn) date) unknown) (unknown) (no (unknown) (unknown) Non-healing wound (units (unknown) date) unknown) (unknown) (no (unknown) (unknown) Not currently (units ( unknown) date) unknown) (unknown) (no (unknown) (unknown) Nutritional (units (un known) date) Appearance: obese unknown) (class 2) (unknown) (no (unknown) (unknown) Orientation: (units (u nknown) date) oriented x3 unknown) (unknown) (no (unknown) (unknown) PFSH (units (unkno wn) date) unknown) (unknown) (no (unknown) (unknown) PO .COMPLEX PRN (units (unknown) date) pain #60 tabs unknown) 08/01/22 [Rx] (unknown) (no (unknown) (unknown) Pain: Pt does not (units (unknown) date) feel the unknown) gabapentin is helpful for her any longer. Would like (unknown) (no (unknown) (unknown) Painful menstrual (units (unknown) date) periods unknown) (unknown) (no (unknown) (unknown) Patient treated (units (unknown) date) inpatient for SI unknown) recently at [facility]. They decreased her ADHD (unknown) (no (unknown) (unknown) Patient: (units (unkno wn) date) Kirsten Deng N unknown) MR#: [id number] (unknown) (no (unknown) (unknown) 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 (unknown) (no (unknown) (unknown) Position Sitting (units (unknown) date) unknown) (unknown) (no (unknown) (unknown) Psych (units (unkno wn) date) unknown) (unknown) (no (unknown) (unknown) Pulse 78 (units (unkno wn) date) unknown) (unknown) (no (unknown) (unknown) Pulse Oximetry (units (unknown) date) (%) 98 unknown) (unknown) (no (unknown) (unknown) Pulse Source (units (u nknown) date) Monitor unknown) (unknown) (no (unknown) (unknown) Qualifiers: (units (un known) date) unknown) (unknown) (no (unknown) (unknown) ROS (units (unkno wn) date) unknown) (unknown) (no (unknown) (unknown) RTC September as (units (u nknown) date) scheudled, or unknown) sooner as needed. (unknown) (no (unknown) (unknown) Reason For Visit (units (unknown) date) unknown) (unknown) (no (unknown) (unknown) Refilled (units (unkno wn) date) unknown) (unknown) (no (unknown) (unknown) Reports as per (units (unknown) date) HPI unknown) (unknown) (no (unknown) (unknown) Reports that her (units (unknown) date) greatest issue at unknown) this time is 'dealing with everyone else,' (unknown) (no (unknown) (unknown) Resp (units (unkno wn) date) unknown) (unknown) (no (unknown) (unknown) Right shoulder (units (unknown) date) pain unknown) (unknown) (no (unknown) (unknown) Sciatic leg pain (units (unknown) date) unknown) (unknown) (no (unknown) (unknown) Scoliosis (-1989) (units (unknown) date) unknown) (unknown) (no (unknown) (unknown) Signed By: (units (unk nown) date) <Electronically unknown) signed by Mari Skinner> (unknown) (no (unknown) (unknown) Signed (units (unkno wn) date) unknown) (unknown) (no (unknown) (unknown) Skin changes of (units (unknown) date) breasts unknown) (unknown) (no (unknown) (unknown) Smoking Status: (units (unknown) date) Current some day unknown) smoker (unknown) (no (unknown) (unknown) Social History (units (unknown) date) unknown) (unknown) (no (unknown) (unknown) Speech and (units (unk nown) date) Movement: agitated unknown) and restless (unknown) (no (unknown) (unknown) Status: Acute (units ( unknown) date) unknown) (unknown) (no (unknown) (unknown) Status: Chronic (units (unknown) date) unknown) (unknown) (no (unknown) (unknown) Surgical History (units (unknown) date) (Reviewed 08/21/22 unknown) @ 13:44 by IKER Ying) (unknown) (no (unknown) (unknown) Take 1 capsule (units (unknown) date) twice per day for unknown) pain 75 mg PO BID 180 caps 3RF (unknown) (no (unknown) (unknown) Take 1 tab daily (units (unknown) date) 100 mg PO DAILY 90 unknown) tabs 0RF F32.9 - Major depressive (unknown) (no (unknown) (unknown) Take 1 tab daily (units (unknown) date) for ADHD 30 mg PO unknown) QAM 30 caps 0RF F90.9 - Attention-deficit (unknown) (no (unknown) (unknown) This note may (units ( unknown) date) have been all or unknown) partially generated using voice recognition (unknown) (no (unknown) (unknown) Thought Content: (units (unknown) date) compulsions unknown) (unknown) (no (unknown) (unknown) Thought Process: (units (unknown) date) flight of ideas unknown) (unknown) (no (unknown) (unknown) Thyroid disease (units (unknown) date) unknown) (unknown) (no (unknown) (unknown) Tobacco + (units (unkn own) date) Substance Use unknown) (unknown) (no (unknown) (unknown) Tobacco Status (units (unknown) date) unknown) (unknown) (no (unknown) (unknown) UTI (urinary (units (u nknown) date) tract infection) unknown) (unknown) (no (unknown) (unknown) Vaginal delivery (units (unknown) date) unknown) (unknown) (no (unknown) (unknown) Visit Reasons: ER (units (unknown) date) follow up 03 unknown) (unknown) (no (unknown) (unknown) Vitals (units (unkno wn) date) unknown) (unknown) (no (unknown) (unknown) Weight 237 lb (units ( unknown) date) unknown) (unknown) (no (unknown) (unknown) Wondering if (units (u nknown) date) Lamotragine, she unknown) is taking 2 - 25mg / day can be increased. She is (unknown) (no (unknown) (unknown) Would like to (units ( unknown) date) discuss her unknown) Adderall, this was decreased to 20mg during her stay (unknown) (no (unknown) (unknown) alcohol intake: (units (unknown) date) never unknown) (unknown) (no (unknown) (unknown) amoxicillin (units (un known) date) Adverse Reaction unknown) (Verified 08/21/22 11:29) (unknown) (no (unknown) (unknown) an appt with (units (u nknown) date) Behavioral Health unknown) 4/6/23. (unknown) (no (unknown) (unknown) antidepressants (units (unknown) date) at this time, as unknown) prescribed. Continue Hydroxyzine and Seroquel (unknown) (no (unknown) (unknown) as needed. (units (unk nown) date) Increase dose of unknown) Lamotrigine to 100mg, will likely increase to (unknown) (no (unknown) (unknown) at one time, she (units (unknown) date) called 911 and was unknown) hospitalized at [place] from 08/10 at midnight (unknown) (no (unknown) (unknown) butalbital-acetam (units (unknown) date) inophen-caffeine unknown) 50 mg-325 mg-40 mg tablet See Rx Instructions (unknown) (no (unknown) (unknown) developed and (units ( unknown) date) well groomed unknown) (unknown) (no (unknown) (unknown) dextroamphetamine (units (unknown) date) -amphetamine 30 mg unknown) ER (unknown) (no (unknown) (unknown) dextroamphetamine (units (unknown) date) -amphetamine ER 10 unknown) mg 24hr capsule,extend release 20 mg PO (unknown) (no (unknown) (unknown) dextroamphetamine (units (unknown) date) -amphetamine ER 30 unknown) mg 24hr capsule,extend release 30 mg PO QAM (unknown) (no (unknown) (unknown) difficulty (units (unkn own) date) integrating back unknown) into society' after being institutionalized. She has (unknown) (no (unknown) (unknown) disorder, single (units (unknown) date) episode, unknown) unspecified, F41.9 - Anxiety disorder, unspecified (unknown) (no (unknown) (unknown) duloxetine 20 mg (units (unknown) date) capsule,delayed unknown) release 20 mg PO DAILY 08/21/22 [History (unknown) (no (unknown) (unknown) experience a 50% (units (unknown) date) reduction in pain unknown) symptoms, consider adding a 3rd dose mid-day (unknown) (no (unknown) (unknown) for as needed use (units (unknown) date) during her unknown) hospitalization and for use upon d/c, has been able (unknown) (no (unknown) (unknown) gabapentin (units (unk nown) date) unknown) (unknown) (no (unknown) (unknown) have occurred. If (units (unknown) date) there are any unknown) questions, please contact the Medical Records (unknown) (no (unknown) (unknown) home and instead (units (unknown) date) of following unknown) through on her plan to take all of her medications (unknown) (no (unknown) (unknown) household (units (unkn own) date) members: unknown) significant other and children (unknown) (no (unknown) (unknown) hydroxyzine HCl (units (unknown) date) 50 mg PO QID PRN unknown) 180 tabs 1RF anxiety (unknown) (no (unknown) (unknown) hydroxyzine HCl (units (unknown) date) 50 mg tablet 50 mg unknown) PO QID PRN anxiety #180 tabs 08/21/22 [Rx (unknown) (no (unknown) (unknown) hyperactivity (units ( unknown) date) disorder, unknown) unspecified type (unknown) (no (unknown) (unknown) in inpatient (units (u nknown) date) treatment and she unknown) is unable to keep on task or think clearly right (unknown) (no (unknown) (unknown) lamotrigine 100 (units (unknown) date) mg tablet 100 mg unknown) PO DAILY #90 tabs 08/21/22 [Rx Confirmed (unknown) (no (unknown) (unknown) lamotrigine (units (un known) date) unknown) (unknown) (no (unknown) (unknown) look to [facility] (units (unknown) date) for unknown) recommendations about her medication management. Continue (unknown) (no (unknown) (unknown) marital status: (units (unknown) date) unmarried,living unknown) together (unknown) (no (unknown) (unknown) may occur. (units (unk nown) date) Occasional unknown) wrong-word or 'sound-alike' substitutions may have (unknown) (no (unknown) (unknown) medication and she (units (unknown) date) is having a lot of unknown) trouble concentrating and is demonstrating (unknown) (no (unknown) (unknown) now due to her (units (unknown) date) ADD symptoms. She unknown) is wondering if she can get 40mg of Adderall. (unknown) (no (unknown) (unknown) occupational (units (u nknown) date) status: employed unknown) (unknown) (no (unknown) (unknown) occurred due to (units (unknown) date) the inherent unknown) limitations of voice recognition software. Please (unknown) (no (unknown) (unknown) on topic today, (units (unknown) date) states her unknown) 'thoughts are racing.' (unknown) (no (unknown) (unknown) or increase in (units (unknown) date) evening dose. unknown) (unknown) (no (unknown) (unknown) patients who have (units (unknown) date) schizophrenia. She unknown) was prescribed Seroquel and Hydroxyzine (unknown) (no (unknown) (unknown) pregabalin 75 mg (units (unknown) date) capsule 75 mg PO unknown) BID #180 caps 08/21/22 [Rx Confirmed 08/21/22] (unknown) (no (unknown) (unknown) pregabalin (units (unk nown) date) unknown) (unknown) (no (unknown) (unknown) quetiapine 100 mg (units (unknown) date) PO .q 6 hours 180 unknown) tabs 1RF (unknown) (no (unknown) (unknown) quetiapine 100 mg (units (unknown) date) tablet 100 mg PO unknown) .q 6 hours #180 tabs 08/21/22 [Rx Confirmed (unknown) (no (unknown) (unknown) read the note (units ( unknown) date) carefully and unknown) recognize, using context, where these substitutions (unknown) (no (unknown) (unknown) reasses later (units ( unknown) date) this month. Ok to unknown) use the 10mg tabs she has on hand until she (unknown) (no (unknown) (unknown) receives new rx. (units (unknown) date) unknown) (unknown) (no (unknown) (unknown) sentences (units (unkn own) date) unknown) (unknown) (no (unknown) (unknown) since her (units (unkn own) date) hospitalization. unknown) (unknown) (no (unknown) (unknown) software. (units (unkn own) date) Although every unknown) effort is made to edit content, cathode builder errors (unknown) (no (unknown) (unknown) substance use (units ( unknown) date) type: does not use unknown) (unknown) (no (unknown) (unknown) suicidality. She (units (unknown) date) reports she had a unknown) plan but her 17 year old daughter was at (unknown) (no (unknown) (unknown) tension-type (units (u nknown) date) headache, not unknown) intractable (unknown) (no (unknown) (unknown) that she is (units (un known) date) experiencing unknown) flight of ideas and unable to stay on topic today. (unknown) (no (unknown) (unknown) to fern picker the (units (unknown) date) Hydroxyzine but unknown) Seroquel still at pharmacy. These meds help. (unknown) (no (unknown) (unknown) to try (units (unkno wn) date) Pregabalin, which unknown) is reasonable. We will trial her at a moderate dose, (unknown) (no (unknown) (unknown) trazodone 100 mg (units (unknown) date) tablet 100 mg PO unknown) BEDTIME 08/21/22 [History Confirmed 08/21/22] (unknown) (no (unknown) (unknown) type (units (unkno wn) date) Intractability: unknown) not intractable Qualified Code(s): G44.229 - Chronic (unknown) (no (unknown) (unknown) unspecified (units (un known) date) unknown) (unknown) (no (unknown) (unknown) until 10am 08/15/22. (units (unknown) date) Reports the stay unknown) was 'eye opening,' was afraid of some of the (unknown) (no (unknown) (unknown) valacyclovir 500 (units (unknown) date) mg tablet 500 mg unknown) PO BID 08/21/22 [History Confirmed 08/21/22] (unknown) (no (unknown) (unknown) willing to try (units (unknown) date) 100mg/day. unknown) Social History date description facility 2022-07-05 00:00 Current some day smoker [facility] 2022-08-01 00:00 Current some day smoker [facility] 2022-08-10 00:00 Current some day smoker [facility] 2022-08-21 00:00 Current some day smoker [facility] Vital Signs date measurement value units 2022-08-11 00:00 BP_diastolic 94 mmHg 2022-08-11 00:00 BP_systolic 145 mmHg 2022-08-11 00:00 heart_rate 82 /min 2022-08-11 00:00 o2_saturation 97 % 2022-08-11 00:00 respiration_rate 16 /min 2022-08-11 00:00 temperature_metric 36.56 C 2022-08-11 00:00 temperature_standard 97.8 F 2022-08-21 00:00 BMI 38.2 kg/m2 2022-08-21 00:00 BP_diastolic 62 mmHg 2022-08-21 00:00 BP_systolic 96 mmHg 2022-08-21 00:00 heart_rate 78 /min 2022-08-21 00:00 height_metric 167.64 cm 2022-08-21 00:00 height_standard 66 in 2022-08-21 00:00 o2_saturation 98 % 2022-08-21 00:00 weight_metric 107.5 kg 2022-08-21 00:00 weight_standard 237 lb
[2022-08-28 15:06] LABS: AMPHETAMINE SCREEN,URINE NEGATIVE (NEGATIVE); BARBITURATE SCREEN,UR POSITIVE (NEGATIVE); BENZODIAZEPINES SCREEN, URINE NEGATIVE (NEGATIVE); COCAINE SCREEN URINE NEGATIVE (NEGATIVE); METHADONE SCREEN, URINE NEGATIVE (NEGATIVE); METHAMPHETAMINES SCREEN, URINE NEGATIVE (NEGATIVE); OPIATE SCREEN, URINE NEGATIVE (NEGATIVE); OXYCODONE SCREEN, URINE NEGATIVE (NEGATIVE); PROPOXYPHENE SCREEN, URINE NEGATIVE (NEGATIVE); THC CANNABINOID SCREEN, URINE POSITIVE (NEGATIVE); TRICYCLIC ANTIDEPRESSANT,URINE POSITIVE (NEGATIVE)
[2022-08-28 15:13] LABS: ACETAMINOPHEN < 10 ug/mL (10-30); ALBUMIN 3.8 g/dL (3.2-5.5); ALBUMIN/GLOBULIN RATIO 1.1 (1.0-2.2); ALKALINE PHOSPHATASE 76 IU/L (42-121); ALT ALANINE AMINOTRANSFERASE 26 IU/L (10-60); AST ASPARTATE AMINOTRANSFERASE 21 IU/L (10-42); BILIRUBIN,TOTAL 0.5 mg/dL (0.2-1.0); BUN - BLOOD UREA NITROGEN 14 mg/dL (6-20); CALCIUM 8.2 mg/dL (8.5-10.3); CARBON DIOXIDE - CO2 24 mmol/L (21-32); CHLORIDE 105 mmol/L (101-111); CREATININE 0.8 mg/dL (0.4-1.0); ETOH - ETHANOL < 5.0 mg/dL; GFR - MDRD 78 (>89); GLUCOSE 88 mg/dL (70-100); LIPASE 24 U/L (22-51); POTASSIUM 3.4 mmol/L (3.5-5.0); SALICYLATE < 6.0 mg/dL; SODIUM 140 mmol/L (135-145); TOTAL PROTEIN 7.4 g/dL (6.7-8.2)
[2022-08-28 17:30] VITALS: BP 127/73
[2022-08-28 18:30] LABS: BILIRUBIN,URINE NEGATIVE (NEGATIVE); GLUCOSE, URINE (UA) NEGATIVE (NEGATIVE); KETONES,URINE (UA) NEGATIVE (NEGATIVE); LEUKOCYTE ESTERASE, URINE NEGATIVE (NEGATIVE); NITRITE,URINE NEGATIVE (NEGATIVE); OCCULT BLOOD,URINE NEGATIVE (NEGATIVE); PROTEIN,URINE NEGATIVE (NEGATIVE); UROBILINOGEN,URINE 0.2 (NORMAL) E.U./dL (NORMAL)
[2022-08-28 18:33] LABS: CLARITY,URINE CLEAR (CLEAR); HCG UR QUAL NEGATIVE
[2022-08-28] MEDS ORDERED: PREGABALIN 25 MG CAPSULE PO STA (20:15)
--- NOTE | 2022-08-28 20:16 | ED Physician Documentation ---
ED Addendum - Addendum Addendum: 08/28/22 20:15 I received signout on this patient from Dr. Bates. She is voluntary for psychiatric admission, suicidal ideation. Her information was sent to [facility]. [facility] [place], Accepts in transfer. COBRA forms completed. Patient will be transferred for further care. Departure - Departure Disposition: 02 Transfer Acute Care Hosp Clinical Impression: Suicidal ideation
== END 2022-08-28 21:30 ==
LOC: EDUNIT# → ED 14:13
DX: R45.851 Suicidal ideations (principal); F32.A Depression, unspecified; F14.10 Cocaine abuse, uncomplicated; F10.10 Alcohol abuse, uncomplicated; F12.10 Cannabis abuse, uncomplicated; F17.200 Nicotine dependence, unspecified, uncomplicated; Z20.822 Contact with and (suspected) exposure to COVID-19
CPT/HCPCS: 36415; 80053; 80306; 80307; 80320; 80329; 81003; 81025; 83690; 84443; 85025; 87635; 93005; 99285; A9270; 81001; 87086

== ENCOUNTER 2022-11-23 22:41 | Outpatient (CLI) | payer MEDICAID | END 2022-11-23 23:59 | disposition critical access hospital (66) | LOC: EMS 22:41 | DX: R40.20 Unspecified coma (principal); T50.901A Poisoning by unspecified drugs, medicaments and biological substances, accidental (unintentional), initial encounter | CPT/HCPCS: A0425; A0427; A0999 ==

== ENCOUNTER 2022-11-23 22:57 | Inpatient (IN) | payer MEDICAID ==
--- NOTE | 2022-11-23 22:53 | ED Physician Documentation ---
History of Present Illness - Stated complaint Stated Complaint: OD - History obtained from History obtained from: EMS - Additonal information Additional information: Brought in by ambulance. Patient is unable to contribute to HPI/ROS due to altered mental status. EMS reports that a family member called 911 after the patient sent text messages to multiple family members the content of which indicated the patient intended to kill herself. Family members reported to EMS that the text messages indicated that the patient had already overdosed on hydroxyzine and quetiapine. EMS arrived on scene to find patient with GCS of 4 , improving to 7 after she was given 1 mg narcan. Review of Systems Unable to obtain: [place] PD PAST MEDICAL HISTORY - Past Medical History Other Past Medical History: unknown (AMS) - Present Medications Home Medications: Ambulatory Orders Medication Instructions Recorded Confirmed DULoxetine [Cymbalta] 60 mg PO DAILY 08/28/22 11/24/22 Gabapentin [Neurontin] 300 - 900 mg PO TID 08/28/22 11/24/22 Pregabalin [Lyrica] 75 mg PO BID 08/28/22 11/24/22 QUEtiapine [SEROquel] 100 mg PO Q6H 08/28/22 11/24/22 Trazodone HCl 100 mg PO HS 08/28/22 11/24/22 lamoTRIgine [LaMICtal] 150 mg PO DAILY 08/28/22 11/24/22 Atomoxetine HCl [Strattera] 1 cap PO DAILY 11/24/22 11/24/22 Butalb/Acetam/Caff 50/325/40 1 - 2 tab PO Q6HR PRN 11/24/22 11/24/22 [Fioricet] Celecoxib [Celebrex] 1 cap PO BID 11/24/22 11/24/22 hydrOXYzine HCL [Hydroxyzine HCl] 1 tab PO QID PRN 11/24/22 11/24/22 - Allergies Allergies/Adverse Reactions: Allergies Allergy/AdvReac Type Severity Reaction Status Date / Time amoxicillin AdvReac Intermediate diarrhea Verified 11/23/22 23:20 nortriptyline AdvReac Unknown Verified 11/23/22 23:20 PD ED PE NORMAL - Vitals Vital signs reviewed: Yes - General General: No acute distress, Well developed/nourished, Other (somnolent, responds to painful stimuli but not following commands) - HEENT HEENT: Atraumatic, PERRL, Other (dry mucous membranes) - Cardiac Cardiac: RRR, No murmur - Respiratory Respiratory: No respiratory distress, Clear bilaterally - Abdomen Abdomen: Soft, Non distended, Other (decreased bowel sounds) - Derm Derm: Normal color, Warm and dry - Extremities Extremities: No edema PD ED PE EXPANDED - Neuro Neuro: Obtunded Results - Vitals Vitals: Oxygen O2 Source Room air - EKG (time done) #1 EKG releavant findings:: EKG personally interpreted by author of this note. Relevant findings are: Rate: Rate (enter#) (106) Rhythm: Sinus tachycardia [place]: Normal Intervals: Normal RI QRS: Normal Ischemia: Normal ST segments #2 EKG releavant findings:: EKG personally interpreted by author of this note. Relevant findings are: Rate: Rate (enter#) (103) Rhythm: Sinus tachycardia [place]: Normal Intervals: Normal RI, Prolonged QT (borderline) QRS: Normal Ischemia: Normal ST segments - Labs Labs: Laboratory Tests 11/23/22 11/23/22 11/23/22 23:18 23:18 23:18 WBC 6.4 RBC 4.28 Hgb 11.8 L Hct 36.8 L MCV 86.0 MCH 27.6 MCHC 32.1 RDW 14.6 Plt Count 237 MPV 9.6 Neut # (Auto) 3.2 Lymph # (Auto) 2.5 Taylor # (Auto) 0.4 Eos # (Auto) 0.2 Baso # (Auto) 0.0 Absolute Nucleated RBC 0.00 Nucleated RBC % 0.0 Sodium 140 Potassium 3.1 L Chloride 109 Carbon Dioxide 20 L Anion Gap 11.0 BUN 9 Creatinine 0.7 Estimated GFR (MDRD) 91 Glucose 175 H POC Whole Bld Glucose Estimat Average Glucose Hemoglobin A1c % Calcium 8.3 L Magnesium 2.1 Total Bilirubin 0.6 AST 15 ALT 15 Alkaline Phosphatase 79 Ammonia Total Creatine Kinase 32 Troponin I High Sens Total Protein 6.7 Albumin 3.4 Globulin 3.3 Albumin/Globulin Ratio 1.0 Triglycerides Cholesterol LDL Cholesterol, Calc VLDL Cholesterol HDL Cholesterol LDL/HDL Ratio Cholesterol/HDL Ratio Lipase 24 TSH 11.70 H Free T4 Urine Color Urine Clarity Urine pH Ur Specific [place] Urine Protein Urine Glucose (UA) Urine Ketones Urine Occult Blood Urine Nitrite Urine Bilirubin Urine Urobilinogen Ur Leukocyte Esterase Ur Microscopic Review Urine Culture Comments Urine HCG, Qual Nasal Screen MRSA (PCR) Salicylates < 6.0 Urine Opiates Screen Ur Oxycodone Screen Urine Methadone Screen Ur Propoxyphene Screen Acetaminophen < 10 L Ur Barbiturates Screen Ur Tricyclics Screen Ur Phencyclidine Scrn Ur Amphetamine Screen U Methamphetamines Scrn U Benzodiazepines Scrn Urine Cocaine Screen U Cannabinoids Screen Ethyl Alcohol 49.2 SARS-CoV-2 (PCR) 11/23/22 11/23/22 11/23/22 23:18 23:18 23:24 WBC RBC Hgb Hct MCV MCH MCHC RDW Plt Count MPV Neut # (Auto) Lymph # (Auto) Taylor # (Auto) Eos # (Auto) Baso # (Auto) Absolute Nucleated RBC Nucleated RBC % Sodium Potassium Chloride Carbon Dioxide Anion Gap BUN Creatinine Estimated GFR (MDRD) Glucose POC Whole Bld Glucose Estimat Average Glucose 105 H Hemoglobin A1c % 5.3 Calcium Magnesium Total Bilirubin AST ALT Alkaline Phosphatase Ammonia Total Creatine Kinase Troponin I High Sens Total Protein Albumin Globulin Albumin/Globulin Ratio Triglycerides Cholesterol LDL Cholesterol, Calc VLDL Cholesterol HDL Cholesterol LDL/HDL Ratio Cholesterol/HDL Ratio Lipase TSH Free T4 0.80 Urine Color YELLOW Urine Clarity CLEAR Urine pH 6.0 Ur Specific [place] <=1.005 Urine Protein NEGATIVE Urine Glucose (UA) NEGATIVE Urine Ketones NEGATIVE Urine Occult Blood NEGATIVE Urine Nitrite NEGATIVE Urine Bilirubin NEGATIVE Urine Urobilinogen 0.2 (NORMAL) Ur Leukocyte Esterase NEGATIVE Ur Microscopic Review NOT INDICATED Urine Culture Comments NOT INDICATED Urine HCG, Qual Nasal Screen MRSA (PCR) Salicylates Urine Opiates Screen Ur Oxycodone Screen Urine Methadone Screen Ur Propoxyphene Screen Acetaminophen Ur Barbiturates Screen Ur Tricyclics Screen Ur Phencyclidine Scrn Ur Amphetamine Screen U Methamphetamines Scrn U Benzodiazepines Scrn Urine Cocaine Screen U Cannabinoids Screen Ethyl Alcohol SARS-CoV-2 (PCR) 11/23/22 11/24/22 11/24/22 23:25 01:11 04:39 WBC RBC Hgb Hct MCV MCH MCHC RDW Plt Count MPV Neut # (Auto) Lymph # (Auto) Taylor # (Auto) Eos # (Auto) Baso # (Auto) Absolute Nucleated RBC Nucleated RBC % Sodium Potassium Chloride Carbon Dioxide Anion Gap BUN Creatinine Estimated GFR (MDRD) Glucose POC Whole Bld Glucose Estimat Average Glucose Hemoglobin A1c % Calcium Magnesium Total Bilirubin AST ALT Alkaline Phosphatase Ammonia 35.7 H Total Creatine Kinase Troponin I High Sens Total Protein Albumin Globulin Albumin/Globulin Ratio Triglycerides Cholesterol LDL Cholesterol, Calc VLDL Cholesterol HDL Cholesterol LDL/HDL Ratio Cholesterol/HDL Ratio Lipase TSH Free T4 Urine Color Urine Clarity Urine pH Ur Specific [place] Urine Protein Urine Glucose (UA) Urine Ketones Urine Occult Blood Urine Nitrite Urine Bilirubin Urine Urobilinogen Ur Leukocyte Esterase Ur Microscopic Review Urine Culture Comments Urine HCG, Qual NEGATIVE Nasal Screen MRSA (PCR) Salicylates Urine Opiates Screen NEGATIVE Ur Oxycodone Screen NEGATIVE Urine Methadone Screen NEGATIVE Ur Propoxyphene Screen NEGATIVE Acetaminophen Ur Barbiturates Screen POSITIVE H Ur Tricyclics Screen POSITIVE H Ur Phencyclidine Scrn NEGATIVE Ur Amphetamine Screen NEGATIVE U Methamphetamines Scrn NEGATIVE U Benzodiazepines Scrn NEGATIVE Urine Cocaine Screen NEGATIVE U Cannabinoids Screen NEGATIVE Ethyl Alcohol SARS-CoV-2 (PCR) NOT DETECTED 11/24/22 11/24/22 11/24/22 07:09 07:09 09:00 WBC RBC Hgb Hct MCV MCH MCHC RDW Plt Count MPV Neut # (Auto) Lymph # (Auto) Taylor # (Auto) Eos # (Auto) Baso # (Auto) Absolute Nucleated RBC Nucleated RBC % Sodium Potassium Chloride Carbon Dioxide Anion Gap BUN Creatinine Estimated GFR (MDRD) Glucose POC Whole Bld Glucose Estimat Average Glucose Hemoglobin A1c % Calcium Magnesium Total Bilirubin AST ALT Alkaline Phosphatase Ammonia Total Creatine Kinase Troponin I High Sens < 2.3 L Total Protein Albumin Globulin Albumin/Globulin Ratio Triglycerides 127 Cholesterol 210 H LDL Cholesterol, Calc 129 VLDL Cholesterol 25 HDL Cholesterol 56 L LDL/HDL Ratio 2.3 Cholesterol/HDL Ratio 3.8 Lipase TSH Free T4 Urine Color Urine Clarity Urine pH Ur Specific [place] Urine Protein Urine Glucose (UA) Urine Ketones Urine Occult Blood Urine Nitrite Urine Bilirubin Urine Urobilinogen Ur Leukocyte Esterase Ur Microscopic Review Urine Culture Comments Urine HCG, Qual Nasal Screen MRSA (PCR) NEGATIVE Salicylates Urine Opiates Screen Ur Oxycodone Screen Urine Methadone Screen Ur Propoxyphene Screen Acetaminophen Ur Barbiturates Screen Ur Tricyclics Screen Ur Phencyclidine Scrn Ur Amphetamine Screen U Methamphetamines Scrn U Benzodiazepines Scrn Urine Cocaine Screen U Cannabinoids Screen Ethyl Alcohol SARS-CoV-2 (PCR) 11/24/22 09:15 WBC RBC Hgb Hct MCV MCH MCHC RDW Plt Count MPV Neut # (Auto) Lymph # (Auto) [place] # (Auto) Eos # (Auto) Baso # (Auto) Absolute Nucleated RBC Nucleated RBC % Sodium Potassium Chloride Carbon Dioxide Anion Gap BUN Creatinine Estimated GFR (MDRD) Glucose POC Whole Bld Glucose 82 Estimat Average Glucose Hemoglobin A1c % Calcium Magnesium Total Bilirubin AST ALT Alkaline Phosphatase Ammonia Total Creatine Kinase Troponin I High Sens Total Protein Albumin Globulin Albumin/Globulin Ratio Triglycerides Cholesterol LDL Cholesterol, Calc VLDL Cholesterol HDL Cholesterol LDL/HDL Ratio Cholesterol/HDL Ratio Lipase TSH Free T4 Urine Color Urine Clarity Urine pH Ur Specific [place] Urine Protein Urine Glucose (UA) Urine Ketones Urine Occult Blood Urine Nitrite Urine Bilirubin Urine Urobilinogen Ur Leukocyte Esterase Ur Microscopic Review Urine Culture Comments Urine HCG, Qual Nasal Screen MRSA (PCR) Salicylates Urine Opiates Screen Ur Oxycodone Screen Urine Methadone Screen Ur Propoxyphene Screen Acetaminophen Ur Barbiturates Screen Ur Tricyclics Screen Ur Phencyclidine Scrn Ur Amphetamine Screen U Methamphetamines Scrn U Benzodiazepines Scrn Urine Cocaine Screen U Cannabinoids Screen Ethyl Alcohol SARS-CoV-2 (PCR) - Rads (name of study) chest xray Relevant Findings:: Prelim report reviewed, See rad report [facility] Relevant Findings:: Prelim report reviewed, See rad report PD Medical Decision Making - ED course Complexity details: reviewed old records, reviewed results, re-evaluated patient, considered differential ED course: Patient presents with severely altered mental status. Soft/nonviolent four- point restraints are placed immediately on ED arrival, as the patient was, at times, trying to get up and out of bed. At no time was she violent, and most of her ED stay she was somnolent. As noted above in HPI, family members told EMS that they had received text from the patient indicating suicidal ideation as well as that she had already overdosed on hydroxyzine and quetiapine. After several hours of observation the emergency department, her mentation did not improve and thus I contacted the telehealth hospitalist who accepts patient for admission to [facility]. This is contingent on a pending CAT scan of the head, with the understanding that patient will not be admitted here (will require transfer) if there are any significant/concerning findings on the CT head. The CT head was subsequently interpreted by the radiologist as no acute disease. The patient has presented to this emergency department in the past for suicidal ideation, most recently in August (3 months ago) at which time she was transferred from this ER to [place] for inpatient treatment of suicidal ideation. Patient's vital signs remained within normal limits throughout ER stay with brief, episodic tachycardia Departure - Departure Disposition: 66 [facility] DC/Xfer Clinical Impression: Overdose Qualifiers: Encounter type: initial encounter Injury intent: intentional self-harm Qualified Code(s): T50.902A - Poisoning by unspecified drugs, medicaments and biological substances, intentional self-harm, initial encounter Altered mental status Qualifiers: Altered mental status type: unspecified Qualified Code(s): R41.82 - Altered mental status, unspecified Condition: Stable Discharge Date/Time: 11/24/22 08:45
[2022-11-23] MEDS ORDERED: SODIUM CHLORIDE 0.9% 1,000 ML IV STA (23:17)
[2022-11-23 23:23] LABS: BASOPHILS % (AUTO) 0.3 %; EOSINOPHILS # (AUTO) 0.2 10^3/uL (0.0-0.7); EOSINOPHILS % (AUTO) 3.5 %; HCT - HEMATOCRIT 36.8 % (37.0-47.0); HGB - HEMOGLOBIN 11.8 g/dL (12.0-16.0); LYMPHOCYTES # (AUTO) 2.5 10^3/uL (1.5-3.5); MEAN CORPUSCULAR HEMOGLOBIN 27.6 pg (27.0-31.0); MEAN CORPUSCULAR HGB CONC 32.1 g/dL (32.0-36.0); MEAN PLATELET VOLUME 9.6 fL (7.9-10.8); MONOCYTES # (AUTO) 0.4 10^3/uL (0.0-1.0); MONOCYTES % (AUTO) 6.8 %; NEUTROPHILS # (AUTO) 3.2 10^3/uL (1.5-6.6); NEUTROPHILS % (AUTO) 50.2 %; PLT - PLATELET COUNT 237 10^3/uL (130-450); RED BLOOD COUNT 4.28 10^6/uL (4.20-5.40); RED CELL DISTRIBUTION WIDTH 14.6 % (12.0-15.0); WHITE BLOOD COUNT 6.4 x10^3/uL (4.8-10.8)
--- OUTSIDE RECORDS SUMMARY | 2022-11-23 23:25 | EXTERNAL MEDICAL SUMMARY RPT | Continuity of Care Document ---
Author Name Unknown Address [address] [place] [address] Phone Organization [facility] Address [address] [place] [address] Phone Care Team Providers Care Crack Off Person Name Role Phone Mari Skinner Unavailable Unavailable Medications date description facility 2022-09-27 00:00 [facility] 2022-11-08 00:00 Lamotrigine [facility] 2022-11-08 00:00 Xbqnuhkqtt-Dbbmfirvnkglw-Wtuf [facility] 2022-09-27 00:00 Prazosin [facility] 2022-10-02 00:00 Atomoxetine [facility] 2022-11-08 00:00 Atomoxetine [facility] 2022-09-27 00:00 Duloxetine [facility] 2022-09-27 00:00 Dextroamphetamine-Amphetamine [facility] 2022-10-09 00:00 Dextroamphetamine-Amphetamine [facility] Problems date description facility 2022-09-27 00:00 Attempted suicide [facility] Results/Labs test date author facility value unit interpretation Result panel 1 (unknown) (no date) (unknown) (unknown) (no value) (units unknown) (unknown) (unknown) (no date) (unknown) (unknown) 'TC to Jarod charles to discuss patient's case. She reports that she saw Kirsten (units unknown) (unknown) (unknown) (no date) (unknown) (unknown) 09/27/22 (units unknown) (unknown) (unknown) (no date) (unknown) (unknown) [id number] (units unknown) (unknown) (unknown) (no date) (unknown) (unknown) 42F with PMH r ecent SI presents with her SO Chong (pronounced Jt) to follow (units unknown) (unknown) (unknown) (no date) (unknown) (unknown) ADHD (-1982) (units unknown) (unknown) (unknown) (no date) (unknown) (unknown) Abnormal Pap s mear of cervix () (units unknown) (unknown) (unknown) (no date) (unknown) (unknown) Age/Sex: 42 / F Date of Service: (units unknown) (unknown) (unknown) (no date) (unknown) (unknown) Allergies (-1988) (u nits unknown) (unknown) (unknown) (no date) (unknown) (unknown) Allergies (units unknown) (unknown) (unknown) (no date) (unknown) (unknown) [place] [address] (units unknown) (unknown) (unknown) (no date) (unknown) (unknown) Anesthesia (units unknown) (unknown) (unknown) (no date) (unknown) (unknown) Brandy Galdamez has referred her to see psychiatrist for her psych meds. It will be (units unknown) (unknown) (unknown) (no date) (unknown) (unknown) Anxiety () (uni ts unknown) (unknown) (unknown) (no date) (unknown) (unknown) Attending Dr: Mari DONG (units unknown) (unknown) (unknown) (no date) (unknown) (unknown) Back pain at L 4-L5 level () (units unknown) (unknown) (unknown) (no date) (unknown) (unknown) Biliary colic (units unknown) (unknown) (unknown) (no date) (unknown) (unknown) Chicken pox () (units unknown) (unknown) (unknown) (no date) (unknown) (unknown) Chief Complaint (uni ts unknown) (unknown) (unknown) (no date) (unknown) (unknown) Chief Complain t: f/up SI and hospitalization (units unknown) (unknown) (unknown) (no date) (unknown) (unknown) Chronic hip pa in, bilateral (units unknown) (unknown) (unknown) (no date) (unknown) (unknown) Chronic right hip pa in (units unknown) (unknown) (unknown) (no date) (unknown) (unknown) Colon polyps () (units unknown) (unknown) (unknown) (no date) (unknown) (unknown) : 9 Acct:[id number] (units unknown) (unknown) (unknown) (no date) (unknown) (unknown) Depression (-2002) ( units unknown) (unknown) (unknown) (no date) (unknown) (unknown) Dept at . (units unknown) (unknown) (unknown) (no date) (unknown) (unknown) Details: (units unknown) (unknown) (unknown) (no date) (unknown) (unknown) Diabetes mellitus (u nits unknown) (unknown) (unknown) (no date) (unknown) (unknown) Diarrhea (units unknown) (unknown) (unknown) (no date) (unknown) (unknown) Documented By: Mari Skinner 09/27/22 1106 (units unknown) (unknown) (unknown) (no date) (unknown) (unknown) Draft (units unknown) (unknown) (unknown) (no date) (unknown) (unknown) Effexor Advers e Reaction (Mild, Uncoded 08/21/22 11:29) (units unknown) (unknown) (unknown) (no date) (unknown) (unknown) Fall (units unknown) (unknown) (unknown) (no date) (unknown) (unknown) Family History (units unknown) (unknown) (unknown) (no date) (unknown) (unknown) Family Practic e Office Visit (units unknown) (unknown) (unknown) (no date) (unknown) (unknown) Father Canc er (units unknown) (unknown) (unknown) (no date) (unknown) (unknown) Fibroids (-2017) (un its unknown) (unknown) (unknown) (no date) (unknown) (unknown) Fibromyalgia (units unknown) (unknown) (unknown) (no date) (unknown) (unknown) [facility] (units unknown) (unknown) (unknown) (no date) (unknown) (unknown) Forgetfulness (units unknown) (unknown) (unknown) (no date) (unknown) (unknown) Grandfather Alyssa ng cancer (units unknown) (unknown) (unknown) (no date) (unknown) (unknown) Grandmother De ceased Cancer (units unknown) (unknown) (unknown) (no date) (unknown) (unknown) HPI (units unknown) (unknown) (unknown) (no date) (unknown) (unknown) Heavy menstrual mati od (units unknown) (unknown) (unknown) (no date) (unknown) (unknown) History of bip olar disorder (units unknown) (unknown) (unknown) (no date) (unknown) (unknown) History of hea rt disease (units unknown) (unknown) (unknown) (no date) (unknown) (unknown) History of ofelia cement of ear tubes (-02/08/86) (units unknown) (unknown) (unknown) (no date) (unknown) (unknown) History of rec urrent ear infection (units unknown) (unknown) (unknown) (no date) (unknown) (unknown) Hypertension (units unknown) (unknown) (unknown) (no date) (unknown) (unknown) Intake (units unknown) (unknown) (unknown) (no date) (unknown) (unknown) November or December b efore she can get in to see the psychiatrist.' (units unknown) (unknown) (unknown) (no date) (unknown) (unknown) Left shoulder pain ( units unknown) (unknown) (unknown) (no date) (unknown) (unknown) Liver cancer (units unknown) (unknown) (unknown) (no date) (unknown) (unknown) Loc: [facility] (units unknown) (unknown) (unknown) (no date) (unknown) (unknown) Medical Histor y (units unknown) (unknown) (unknown) (no date) (unknown) (unknown) Mental health proble m (units unknown) (unknown) (unknown) (no date) (unknown) (unknown) Migraines (-1993) (u nits unknown) (unknown) (unknown) (no date) (unknown) (unknown) Mother d Hyperlipidemia (units unknown) (unknown) (unknown) (no date) (unknown) (unknown) Non-healing wound (u nits unknown) (unknown) (unknown) (no date) (unknown) (unknown) Not currently pregna nt (units unknown) (unknown) (unknown) (no date) (unknown) (unknown) PFSH (units unknown) (unknown) (unknown) (no date) (unknown) (unknown) Painful menstr ual periods (units unknown) (unknown) (unknown) (no date) (unknown) (unknown) Patient: Kirsten Braun MR#: [id number] (units unknown) (unknown) (unknown) (no date) (unknown) (unknown) Piriformis syn drome of both sides (units unknown) (unknown) (unknown) (no date) (unknown) (unknown) Pt feels 'blin dsided' by this information, and patient wishes that her counselor (units unknown) (unknown) (unknown) (no date) (unknown) (unknown) Pt wonders whe n her last rx from adderall was written. She would like to (units unknown) (unknown) (unknown) (no date) (unknown) (unknown) Reason For Visit (un its unknown) (unknown) (unknown) (no date) (unknown) (unknown) Right shoulder pain (units unknown) (unknown) (unknown) (no date) (unknown) (unknown) Sciatic leg pain (un its unknown) (unknown) (unknown) (no date) (unknown) (unknown) Scoliosis () (u nits unknown) (unknown) (unknown) (no date) (unknown) (unknown) She has used c ocaine (has not been 30 days sober), and snorts muscle relaxers (units unknown) (unknown) (unknown) (no date) (unknown) (unknown) She sees her a gain on Saturday. Had an assessment today for her substance abuse (units unknown) (unknown) (unknown) (no date) (unknown) (unknown) Signed By: (units unknown) (unknown) (unknown) (no date) (unknown) (unknown) Skin changes o f breasts (units unknown) (unknown) (unknown) (no date) (unknown) (unknown) Smoking Status : Current some day smoker (units unknown) (unknown) (unknown) (no date) (unknown) (unknown) Social History (unit s unknown) (unknown) (unknown) (no date) (unknown) (unknown) Surgical Histo ry (units unknown) (unknown) (unknown) (no date) (unknown) (unknown) This note may have been all or partially generated using voice recognition (units unknown) (unknown) (unknown) (no date) (unknown) (unknown) Thyroid disease (uni ts unknown) (unknown) (unknown) (no date) (unknown) (unknown) Tobacco + Subs tance Use (units unknown) (unknown) (unknown) (no date) (unknown) (unknown) Tobacco Status (unit s unknown) (unknown) (unknown) (no date) (unknown) (unknown) UTI (urinary t ract infection) (units unknown) (unknown) (unknown) (no date) (unknown) (unknown) Vaginal delivery (un its unknown) (unknown) (unknown) (no date) (unknown) (unknown) Visit Reasons: VIDEO:Suicidal Ideation/SO will be present- (units unknown) (unknown) (unknown) (no date) (unknown) (unknown) alcohol intake: carline r (units unknown) (unknown) (unknown) (no date) (unknown) (unknown) amoxicillin Ad verse Reaction (Verified 08/21/22 11:29) (units unknown) (unknown) (unknown) (no date) (unknown) (unknown) come off of e stimulant for ADHD and onto Strattera. From the conversation (units unknown) (unknown) (unknown) (no date) (unknown) (unknown) concerned yolandau t access to her mental health medications and recommends that she (units unknown) (unknown) (unknown) (no date) (unknown) (unknown) counselor.? (units unknown) (unknown) (unknown) (no date) (unknown) (unknown) daily, also us es alcohol. Has expressed she will use 'whatever is available.' (units unknown) (unknown) (unknown) (no date) (unknown) (unknown) had suggested this to her so that she was not 'hit from left field' with this (units unknown) (unknown) (unknown) (no date) (unknown) (unknown) has had recent past intent (2 recent hospitalizations) but pt denied intent (units unknown) (unknown) (unknown) (no date) (unknown) (unknown) have her medic ation kept in a safe place, such as a safe, and that someone else (units unknown) (unknown) (unknown) (no date) (unknown) (unknown) have occurred. If there are any questions, please contact the Medical Records (units unknown) (unknown) (unknown) (no date) (unknown) (unknown) hospitalized, she ODd on Hydroxyzine, but there was 'no intent to ,' and (units unknown) (unknown) (unknown) (no date) (unknown) (unknown) household memb ers: significant other and children (units unknown) (unknown) (unknown) (no date) (unknown) (unknown) implement the Stratera sooner rather than later if this is the plan as she is (units unknown) (unknown) (unknown) (no date) (unknown) (unknown) in the househo ld manage her meds for her so that she does not have access to the (units unknown) (unknown) (unknown) (no date) (unknown) (unknown) marital status : unmarried,living together (units unknown) (unknown) (unknown) (no date) (unknown) (unknown) may occur. Occ asional wrong-word or 'sound-alike' substitutions may have (units unknown) (unknown) (unknown) (no date) (unknown) (unknown) meds. Chong, he r SO, was identified by the patient as someone who she trusts. She (units unknown) (unknown) (unknown) (no date) (unknown) (unknown) occupational s tatus: employed (units unknown) (unknown) (unknown) (no date) (unknown) (unknown) occurred due t o the inherent limitations of voice recognition software. Please (units unknown) (unknown) (unknown) (no date) (unknown) (unknown) offices. (units unknown) (unknown) (unknown) (no date) (unknown) (unknown) police with in tent to overdose on her meds. The second time she was (units unknown) (unknown) (unknown) (no date) (unknown) (unknown) read the note carefully and recognize, using context, where these substitutions (units unknown) (unknown) (unknown) (no date) (unknown) (unknown) recommendation. 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 She is very (units unknown) (unknown) (unknown) (no date) (unknown) (unknown) up about SI an d the recommendation that her SO manage her medications, and to (units unknown) (unknown) (unknown) (no date) (unknown) (unknown) wanted symptom reduction, and Brandy Galdamez is concerned about her impulsiveness. (units unknown) (unknown) (unknown) (no date) (unknown) (unknown) with Rosalina Mccall: (un its unknown) (unknown) (unknown) (no date) (unknown) (unknown) yesterday dayanara ng her visit for suicide.? Brought all of her meds with her (units unknown) (unknown) (unknown) (no date) (unknown) (unknown) yesterday for review. Her initial hospitalization early August, she called the (units unknown) (unknown) (unknown) (no date) (unknown) (unknown) yesterday, rep orts patient has a high level of impulsivity, and that she has (units unknown) (unknown) Result panel 2 (unknown) (no date) (unknown) (unknown) (no value) (units unknown) (unknown) (unknown) (no date) (unknown) (unknown) #30 caps 09/27 [Rx Confirmed 09/27/22] (units unknown) (unknown) (unknown) (no date) (unknown) (unknown) 'TC to [facility] charles to discuss patient's case. She reports that she saw Kirsten (units unknown) (unknown) (unknown) (no date) (unknown) (unknown) (1) ADHD: (units unknown) (unknown) (unknown) (no date) (unknown) (unknown) (2) Migraines: (unit s unknown) (unknown) (unknown) (no date) (unknown) (unknown) (3) Anxiety: (units unknown) (unknown) (unknown) (no date) (unknown) (unknown) (4) Suicide attempt: (units unknown) (unknown) (unknown) (no date) (unknown) (unknown) (5) Suicidal ideatio n: (units unknown) (unknown) (unknown) (no date) (unknown) (unknown) 09/27/22 (units unknown) (unknown) (unknown) (no date) (unknown) (unknown) 09/27/22] (units unknown) (unknown) (unknown) (no date) (unknown) (unknown) [id number] (units unknown) (unknown) (unknown) (no date) (unknown) (unknown) 42F presents w ith her SO Chong to follow up about her recent SI and overdose (units unknown) (unknown) (unknown) (no date) (unknown) (unknown) 42F with PMH r ecent SI presents with her SO Chong (pronounced Sulema-Soledad) to follow (units unknown) (unknown) (unknown) (no date) (unknown) (unknown) ADHD () (units unknown) (unknown) (unknown) (no date) (unknown) (unknown) Abnormal Pap s mear of cervix (-2017) (units unknown) (unknown) (unknown) (no date) (unknown) (unknown) Add'l Plan Details ( units unknown) (unknown) (unknown) (no date) (unknown) (unknown) Add'l Plan*: (units unknown) (unknown) (unknown) (no date) (unknown) (unknown) Age/Sex: 42 / F Date of Service: (units unknown) (unknown) (unknown) (no date) (unknown) (unknown) Allergies () (u nits unknown) (unknown) (unknown) (no date) (unknown) (unknown) Allergies (units unknown) (unknown) (unknown) (no date) (unknown) (unknown) [place] [address] (units unknown) (unknown) (unknown) (no date) (unknown) (unknown) Anesthesia (units unknown) (unknown) (unknown) (no date) (unknown) (unknown) Cheryl has referred her to see psychiatrist for her psych meds. It will be (units unknown) (unknown) (unknown) (no date) (unknown) (unknown) Anxiety (-2002) (uni ts unknown) (unknown) (unknown) (no date) (unknown) (unknown) Assessment + Plan (u nits unknown) (unknown) (unknown) (no date) (unknown) (unknown) Attending Dr: Mari DONG (units unknown) (unknown) (unknown) (no date) (unknown) (unknown) Attention deficit-hyperactivity disorder type: unspecified Qualified (units unknown) (unknown) (unknown) (no date) (unknown) (unknown) Attention-defi cit hyperactivity disorder, unspecified type (units unknown) (unknown) (unknown) (no date) (unknown) (unknown) Back pain at L 4-L5 level () (units unknown) (unknown) (unknown) (no date) (unknown) (unknown) Biliary colic (units unknown) (unknown) (unknown) (no date) (unknown) (unknown) Changed (units unknown) (unknown) (unknown) (no date) (unknown) (unknown) Chicken pox () (units unknown) (unknown) (unknown) (no date) (unknown) (unknown) Chief Complaint (uni ts unknown) (unknown) (unknown) (no date) (unknown) (unknown) Chief Complain t: f/up SI and hospitalization (units unknown) (unknown) (unknown) (no date) (unknown) (unknown) Chronic hip pa in, bilateral (units unknown) (unknown) (unknown) (no date) (unknown) (unknown) Chronic right hip pa in (units unknown) (unknown) (unknown) (no date) (unknown) (unknown) Code(s): F90.9 - Attention-deficit hyperactivity disorder, unspecified type (units unknown) (unknown) (unknown) (no date) (unknown) (unknown) Colon polyps () (units unknown) (unknown) (unknown) (no date) (unknown) (unknown) Confirmed 09/27/22] (units unknown) (unknown) (unknown) (no date) (unknown) (unknown) Const (units unknown) (unknown) (unknown) (no date) (unknown) (unknown) : 9 Acct:[id number] (units unknown) (unknown) (unknown) (no date) (unknown) (unknown) Depression (-2002) ( units unknown) (unknown) (unknown) (no date) (unknown) (unknown) Dept at . (units unknown) (unknown) (unknown) (no date) (unknown) (unknown) Details: (units unknown) (unknown) (unknown) (no date) (unknown) (unknown) Diabetes mellitus (u nits unknown) (unknown) (unknown) (no date) (unknown) (unknown) Diarrhea (units unknown) (unknown) (unknown) (no date) (unknown) (unknown) Discontinued R asif: Order Change 30 mg PO QAM 30 caps 0RF F90.9 (units unknown) (unknown) (unknown) (no date) (unknown) (unknown) Discontinued (units unknown) (unknown) (unknown) (no date) (unknown) (unknown) Documented By: Mari Skinner 09/27/22 1106 (units unknown) (unknown) (unknown) (no date) (unknown) (unknown) Draft (units unknown) (unknown) (unknown) (no date) (unknown) (unknown) Effexor Advers e Reaction (Mild, Uncoded 08/21/22 11:29) (units unknown) (unknown) (unknown) (no date) (unknown) (unknown) Exam Narrative (unit s unknown) (unknown) (unknown) (no date) (unknown) (unknown) Exam Narrative: (uni ts unknown) (unknown) (unknown) (no date) (unknown) (unknown) Exam (units unknown) (unknown) (unknown) (no date) (unknown) (unknown) Fall (units unknown) (unknown) (unknown) (no date) (unknown) (unknown) Family History (units unknown) (unknown) (unknown) (no date) (unknown) (unknown) Family Practic e Office Visit (units unknown) (unknown) (unknown) (no date) (unknown) (unknown) Father Can er (units unknown) (unknown) (unknown) (no date) (unknown) (unknown) Fibroids (-2017) (un its unknown) (unknown) (unknown) (no date) (unknown) (unknown) Fibromyalgia (units unknown) (unknown) (unknown) (no date) (unknown) (unknown) [facility] (units unknown) (unknown) (unknown) (no date) (unknown) (unknown) Forgetfulness (units unknown) (unknown) (unknown) (no date) (unknown) (unknown) From lamotrigine (un its unknown) (unknown) (unknown) (no date) (unknown) (unknown) Grandfather Alyssa ng cancer (units unknown) (unknown) (unknown) (no date) (unknown) (unknown) Grandmother Jesse ceased Cancer (units unknown) (unknown) (unknown) (no date) (unknown) (unknown) HPI (units unknown) (unknown) (unknown) (no date) (unknown) (unknown) Heavy menstrual mati od (units unknown) (unknown) (unknown) (no date) (unknown) (unknown) History of bip olar disorder (units unknown) (unknown) (unknown) (no date) (unknown) (unknown) History of hea rt disease (units unknown) (unknown) (unknown) (no date) (unknown) (unknown) History of ofelia cement of ear tubes (-02/08/86) (units unknown) (unknown) (unknown) (no date) (unknown) (unknown) History of rec urrent ear infection (units unknown) (unknown) (unknown) (no date) (unknown) (unknown) Hypertension (units unknown) (unknown) (unknown) (no date) (unknown) (unknown) Intake (units unknown) (unknown) (unknown) (no date) (unknown) (unknown) Chong has agree d to manage all of the patient's medications to keep her safe. She (units unknown) (unknown) (unknown) (no date) (unknown) (unknown) November or December b efore she can get in to see the psychiatrist.' (units unknown) (unknown) (unknown) (no date) (unknown) (unknown) Left shoulder pain ( units unknown) (unknown) (unknown) (no date) (unknown) (unknown) Liver cancer (units unknown) (unknown) (unknown) (no date) (unknown) (unknown) Loc: [facility] (units unknown) (unknown) (unknown) (no date) (unknown) (unknown) Major depressi ve disorder, single episode, unspecified, F41.9 - Anxiety (units unknown) (unknown) (unknown) (no date) (unknown) (unknown) Medical Histor y (Updated 09/27/22 @ 11:29 by IKER Ying) (units unknown) (unknown) (unknown) (no date) (unknown) (unknown) Medications (units unknown) (unknown) (unknown) (no date) (unknown) (unknown) Medications: (units unknown) (unknown) (unknown) (no date) (unknown) (unknown) Mental health proble m (units unknown) (unknown) (unknown) (no date) (unknown) (unknown) Migraine type: unspecified Status migrainosus presence: without status (units unknown) (unknown) (unknown) (no date) (unknown) (unknown) Migraine, unsp ecified, not intractable, without status migrainosus (units unknown) (unknown) (unknown) (no date) (unknown) (unknown) Migraines (-1993) (u nits unknown) (unknown) (unknown) (no date) (unknown) (unknown) Mother d Hyperlipidemia (units unknown) (unknown) (unknown) (no date) (unknown) (unknown) Multi Vitamin 11/04/17 [History Confirmed 09/27/22] (units unknown) (unknown) (unknown) (no date) (unknown) (unknown) New (units unknown) (unknown) (unknown) (no date) (unknown) (unknown) Non-healing wound (u nits unknown) (unknown) (unknown) (no date) (unknown) (unknown) Not currently pregna nt (units unknown) (unknown) (unknown) (no date) (unknown) (unknown) PFSH (units unknown) (unknown) (unknown) (no date) (unknown) (unknown) PO .COMPLEX NM N pain #60 tabs 08/01/22 [Rx Confirmed 09/27/22] (units unknown) (unknown) (unknown) (no date) (unknown) (unknown) Painful menstr ual periods (units unknown) (unknown) (unknown) (no date) (unknown) (unknown) Patient: Kirsten Braun MR#: [id number] (units unknown) (unknown) (unknown) (no date) (unknown) (unknown) Piriformis syn drome of both sides (units unknown) (unknown) (unknown) (no date) (unknown) (unknown) Pt at this terrence e denies SI and has a supportive partner who is willing to keep (units unknown) (unknown) (unknown) (no date) (unknown) (unknown) Pt denies SI, denies feeling the need to take more than her prescribed (units unknown) (unknown) (unknown) (no date) (unknown) (unknown) Pt feels 'blin dsided' by this information, and patient wishes that her counselor (units unknown) (unknown) (unknown) (no date) (unknown) (unknown) Pt wonders whe n her last rx from adderall was written. She would like to (units unknown) (unknown) (unknown) (no date) (unknown) (unknown) Qualifiers: (units unknown) (unknown) (unknown) (no date) (unknown) (unknown) ROS (units unknown) (unknown) (unknown) (no date) (unknown) (unknown) Reason For Visit (un its unknown) (unknown) (unknown) (no date) (unknown) (unknown) Reports as per HPI ( units unknown) (unknown) (unknown) (no date) (unknown) (unknown) Right shoulder pain (units unknown) (unknown) (unknown) (no date) (unknown) (unknown) Sciatic leg pain (un its unknown) (unknown) (unknown) (no date) (unknown) (unknown) Scoliosis (-1989) (u nits unknown) (unknown) (unknown) (no date) (unknown) (unknown) She has used c ocaine (has not been 30 days sober), and snorts muscle relaxers (units unknown) (unknown) (unknown) (no date) (unknown) (unknown) She sees her a gain on Saturday. Had an assessment today for her substance abuse (units unknown) (unknown) (unknown) (no date) (unknown) (unknown) Signed By: (units unknown) (unknown) (unknown) (no date) (unknown) (unknown) Skin changes o f breasts (units unknown) (unknown) (unknown) (no date) (unknown) (unknown) Smoking Status : Current some day smoker (units unknown) (unknown) (unknown) (no date) (unknown) (unknown) Social History (unit s unknown) (unknown) (unknown) (no date) (unknown) (unknown) Status: Acute (units unknown) (unknown) (unknown) (no date) (unknown) (unknown) Status: Chronic (uni ts unknown) (unknown) (unknown) (no date) (unknown) (unknown) Status: Inactive (un its unknown) (unknown) (unknown) (no date) (unknown) (unknown) Suicide attempt (uni ts unknown) (unknown) (unknown) (no date) (unknown) (unknown) Surgical Histo ry (units unknown) (unknown) (unknown) (no date) (unknown) (unknown) Take 1 1/2 tab s daily 150 mg (1.5 x 100 mg) PO DAILY 135 tabs 0RF F32.9 (units unknown) (unknown) (unknown) (no date) (unknown) (unknown) Take 1 tab liseth ly 100 mg PO DAILY 90 tabs 0RF F32.9 - Major depressive (units unknown) (unknown) (unknown) (no date) (unknown) (unknown) Take 1 tab liseth ly for ADHD (units unknown) (unknown) (unknown) (no date) (unknown) (unknown) Take daily 60 mg PO DAILY 90 caps 0RF (units unknown) (unknown) (unknown) (no date) (unknown) (unknown) This note may have been all or partially generated using voice recognition (units unknown) (unknown) (unknown) (no date) (unknown) (unknown) Thyroid disease (uni ts unknown) (unknown) (unknown) (no date) (unknown) (unknown) To lamotrigine (unit s unknown) (unknown) (unknown) (no date) (unknown) (unknown) Tobacco + Subs tance Use (units unknown) (unknown) (unknown) (no date) (unknown) (unknown) Tobacco Status (unit s unknown) (unknown) (unknown) (no date) (unknown) (unknown) UTI (urinary t ract infection) (units unknown) (unknown) (unknown) (no date) (unknown) (unknown) Vaginal delivery (un its unknown) (unknown) (unknown) (no date) (unknown) (unknown) Visit Reasons: VIDEO:Suicidal Ideation/SO will be present- (units unknown) (unknown) (unknown) (no date) (unknown) (unknown) addition to th e dextroamphetamine amphetamine. We will look to Psychiatry to (units unknown) (unknown) (unknown) (no date) (unknown) (unknown) alcohol intake: carline iniguez (units unknown) (unknown) (unknown) (no date) (unknown) (unknown) amoxicillin Ad verse Reaction (Verified 08/21/22 11:29) (units unknown) (unknown) (unknown) (no date) (unknown) (unknown) attempts. (units unknown) (unknown) (unknown) (no date) (unknown) (unknown) butalbital-elaine taminoph en-caffeine 50 mg-325 mg-40 mg tablet See Rx Instructions (units unknown) (unknown) (unknown) (no date) (unknown) (unknown) come off of th e stimulant for ADHD and onto Strattera. From the conversation (units unknown) (unknown) (unknown) (no date) (unknown) (unknown) concerned cheo t access to her mental health medications and recommends that she (units unknown) (unknown) (unknown) (no date) (unknown) (unknown) contracts not to injure herself and will call for assistance if she does (units unknown) (unknown) (unknown) (no date) (unknown) (unknown) counselor.? (units unknown) (unknown) (unknown) (no date) (unknown) (unknown) daily, also us es alcohol. Has expressed she will use 'whatever is available.' (units unknown) (unknown) (unknown) (no date) (unknown) (unknown) dextroamphetam ine amphetamine ER 20mg 1 capsule daily, and consider increasing (units unknown) (unknown) (unknown) (no date) (unknown) (unknown) dextroamphetam ine-amph etamine 20 mg ER 20 mg PO QAM 30 caps 0RF (units unknown) (unknown) (unknown) (no date) (unknown) (unknown) dextroamphetam ine-amph etamine 30 mg ER (units unknown) (unknown) (unknown) (no date) (unknown) (unknown) dextroamphetam ine-amph etamine ER 20 mg 24hr capsule,extend release 20 mg PO QAM (units unknown) (unknown) (unknown) (no date) (unknown) (unknown) disorder, sing le episode, unspecified, F41.9 - Anxiety disorder, unspecified (units unknown) (unknown) (unknown) (no date) (unknown) (unknown) disorder, unspecifie d (units unknown) (unknown) (unknown) (no date) (unknown) (unknown) 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 Recommend pt continue her (units unknown) (unknown) (unknown) (no date) (unknown) (unknown) dose as pschia try feels is appropriate. Pt may also benefit from stratera in (units unknown) (unknown) (unknown) (no date) (unknown) (unknown) duloxetine 60 mg capsule,delayed release 60 mg PO DAILY #90 caps 09/27/22 [Rx (units unknown) (unknown) (unknown) (no date) (unknown) (unknown) duloxetine (units unknown) (unknown) (unknown) (no date) (unknown) (unknown) experience fee lings of wanting to escape her feelings by suicide. Pt has appt (units unknown) (unknown) (unknown) (no date) (unknown) (unknown) had suggested this to her so that she was not 'hit from left field' with this (units unknown) (unknown) (unknown) (no date) (unknown) (unknown) has had recent past intent (2 recent hospitalizations) but pt denied intent (units unknown) (unknown) (unknown) (no date) (unknown) (unknown) have her medic ation kept in a safe place, such as a safe, and that someone else (units unknown) (unknown) (unknown) (no date) (unknown) (unknown) have occurred. If there are any questions, please contact the Medical Records (units unknown) (unknown) (unknown) (no date) (unknown) (unknown) hospitalized, she ODd on Hydroxyzine, but there was 'no intent to ,' and (units unknown) (unknown) (unknown) (no date) (unknown) (unknown) household memb ers: significant other and children (units unknown) (unknown) (unknown) (no date) (unknown) (unknown) hydroxyzine HC l 50 mg tablet 50 mg PO QID PRN anxiety #180 tabs 08/21/22 [Rx (units unknown) (unknown) (unknown) (no date) (unknown) (unknown) implement the Stratera sooner rather than later if this is the plan as she is (units unknown) (unknown) (unknown) (no date) (unknown) (unknown) in the househo ld manage her meds for her so that she does not have access to the (units unknown) (unknown) (unknown) (no date) (unknown) (unknown) lamotrigine 10 0 mg tablet 150 mg PO DAILY #135 tabs 09/27/22 [Rx Confirmed (units unknown) (unknown) (unknown) (no date) (unknown) (unknown) marital status : unmarried,living together (units unknown) (unknown) (unknown) (no date) (unknown) (unknown) may occur. Occ asional wrong-word or 'sound-alike' substitutions may have (units unknown) (unknown) (unknown) (no date) (unknown) (unknown) medications. (units unknown) (unknown) (unknown) (no date) (unknown) (unknown) meds locked up in a safe. She is starting a new job and needs mental clarity to (units unknown) (unknown) (unknown) (no date) (unknown) (unknown) meds. Chong, he r SO, was identified by the patient as someone who she trusts. She (units unknown) (unknown) (unknown) (no date) (unknown) (unknown) migrainosus Intractability: not intractable Qualified Code(s): G43.909 (units unknown) (unknown) (unknown) (no date) (unknown) (unknown) occupational s tatus: employed (units unknown) (unknown) (unknown) (no date) (unknown) (unknown) occurred due t o the inherent limitations of voice recognition software. Please (units unknown) (unknown) (unknown) (no date) (unknown) (unknown) offices. (units unknown) (unknown) (unknown) (no date) (unknown) (unknown) on 10/03 with h er counselor, she is starting work next week and may need to (units unknown) (unknown) (unknown) (no date) (unknown) (unknown) police with in tent to overdose on her meds. The second time she was (units unknown) (unknown) (unknown) (no date) (unknown) (unknown) postpone her appointment. (units unknown) (unknown) (unknown) (no date) (unknown) (unknown) prazosin 1 mg capsule 2 mg PO BEDTIME 09/27/22 [History Confirmed 09/27/22] (units unknown) (unknown) (unknown) (no date) (unknown) (unknown) prazosin 2 mg PO BEDTIME (units unknown) (unknown) (unknown) (no date) (unknown) (unknown) pregabalin 75 mg capsule 75 mg PO BID #180 caps 08/21/22 [Rx Confirmed 09/27/22] (units unknown) (unknown) (unknown) (no date) (unknown) (unknown) prescribe this medication if this feels is appropriate. (units unknown) (unknown) (unknown) (no date) (unknown) (unknown) quetiapine 100 mg tablet 100 mg PO .q 6 hours #180 tabs 08/21/22 [Rx Confirmed (units unknown) (unknown) (unknown) (no date) (unknown) (unknown) read the note carefully and recognize, using context, where these substitutions (units unknown) (unknown) (unknown) (no date) (unknown) (unknown) recommendation. 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 She is very (units unknown) (unknown) (unknown) (no date) (unknown) (unknown) trazodone 100 mg tablet 100 mg PO BEDTIME 08/21/22 [History Confirmed 09/27/22] (units unknown) (unknown) (unknown) (no date) (unknown) (unknown) up about SI an d the recommendation that her SO manage her medications, and to (units unknown) (unknown) (unknown) (no date) (unknown) (unknown) valacyclovir 5 00 mg tablet 500 mg PO BID 08/21/22 [History Confirmed 09/27/22] (units unknown) (unknown) (unknown) (no date) (unknown) (unknown) wanted symptom reduction, and Brandy Galdamez is concerned about her impulsiveness. (units unknown) (unknown) (unknown) (no date) (unknown) (unknown) with Rosalina Mccall: (un its unknown) (unknown) (unknown) (no date) (unknown) (unknown) yesterday dayanara ng her visit for suicide.? Brought all of her meds with her (units unknown) (unknown) (unknown) (no date) (unknown) (unknown) yesterday for review. Her initial hospitalization early August, she called the (units unknown) (unknown) (unknown) (no date) (unknown) (unknown) yesterday, rep orts patient has a high level of impulsivity, and that she has (units unknown) (unknown) Result panel 3 (unknown) (no date) (unknown) (unknown) (no value) (units unknown) (unknown) (unknown) (no date) (unknown) (unknown) #30 caps 09/27 [Rx Confirmed 09/27/22] (units unknown) (unknown) (unknown) (no date) (unknown) (unknown) 'TC to Ms. Olivera melvin to discuss patient's case. She reports that she saw Kirsten (units unknown) (unknown) (unknown) (no date) (unknown) (unknown) (1) ADHD: (units unknown) (unknown) (unknown) (no date) (unknown) (unknown) (2) Migraines: (unit s unknown) (unknown) (unknown) (no date) (unknown) (unknown) (3) Anxiety: (units unknown) (unknown) (unknown) (no date) (unknown) (unknown) (4) Suicide attempt: (units unknown) (unknown) (unknown) (no date) (unknown) (unknown) (5) Suicidal ideatio n: (units unknown) (unknown) (unknown) (no date) (unknown) (unknown) 09/27/22 (units unknown) (unknown) (unknown) (no date) (unknown) (unknown) 09/27/22] (units unknown) (unknown) (unknown) (no date) (unknown) (unknown) 10/02/22 1218 (units unknown) (unknown) (unknown) (no date) (unknown) (unknown) [id number] (units unknown) (unknown) (unknown) (no date) (unknown) (unknown) 23 mins (units unknown) (unknown) (unknown) (no date) (unknown) (unknown) 42F presents w ith her SO Chong to follow up about her recent SI and overdose (units unknown) (unknown) (unknown) (no date) (unknown) (unknown) 42F with PMH r ecent SI presents with her SO Chong (pronounced Sulema-Soledad) to follow (units unknown) (unknown) (unknown) (no date) (unknown) (unknown) ADHD (-1982) (units unknown) (unknown) (unknown) (no date) (unknown) (unknown) Abnormal Pap s mear of cervix (-2017) (units unknown) (unknown) (unknown) (no date) (unknown) (unknown) Add'l Plan Details ( units unknown) (unknown) (unknown) (no date) (unknown) (unknown) Add'l Plan*: (units unknown) (unknown) (unknown) (no date) (unknown) (unknown) Age/Sex: 42 / F Date of Service: (units unknown) (unknown) (unknown) (no date) (unknown) (unknown) All participan ts + their role: (Providers,Parent,Spou se,etc): (units unknown) (unknown) (unknown) (no date) (unknown) (unknown) Allergies () (u nits unknown) (unknown) (unknown) (no date) (unknown) (unknown) Allergies (units unknown) (unknown) (unknown) (no date) (unknown) (unknown) [place] [address] (units unknown) (unknown) (unknown) (no date) (unknown) (unknown) Anesthesia (units unknown) (unknown) (unknown) (no date) (unknown) (unknown) Brandy Galdamez has referred her to see psychiatrist for her psych meds. It will be (units unknown) (unknown) (unknown) (no date) (unknown) (unknown) Anxiety () (uni ts unknown) (unknown) (unknown) (no date) (unknown) (unknown) Assessment + Plan (u nits unknown) (unknown) (unknown) (no date) (unknown) (unknown) Attending Dr: Mari DONG (units unknown) (unknown) (unknown) (no date) (unknown) (unknown) Attention deficit-hyperactivity disorder type: unspecified Qualified (units unknown) (unknown) (unknown) (no date) (unknown) (unknown) Attention-defi cit hyperactivity disorder, unspecified type (units unknown) (unknown) (unknown) (no date) (unknown) (unknown) Back pain at L 4-L5 level () (units unknown) (unknown) (unknown) (no date) (unknown) (unknown) Biliary colic (units unknown) (unknown) (unknown) (no date) (unknown) (unknown) Changed (units unknown) (unknown) (unknown) (no date) (unknown) (unknown) Chicken pox () (units unknown) (unknown) (unknown) (no date) (unknown) (unknown) Chief Complaint (uni ts unknown) (unknown) (unknown) (no date) (unknown) (unknown) Chief Complain t: f/up SI and hospitalization (units unknown) (unknown) (unknown) (no date) (unknown) (unknown) Chronic hip pa in, bilateral (units unknown) (unknown) (unknown) (no date) (unknown) (unknown) Chronic right hip pa in (units unknown) (unknown) (unknown) (no date) (unknown) (unknown) Code(s): F90.9 - Attention-deficit hyperactivity disorder, unspecified type (units unknown) (unknown) (unknown) (no date) (unknown) (unknown) Colon polyps () (units unknown) (unknown) (unknown) (no date) (unknown) (unknown) Confirmed 09/27/22] (units unknown) (unknown) (unknown) (no date) (unknown) (unknown) Const (units unknown) (unknown) (unknown) (no date) (unknown) (unknown) : 9 Acct:[id number] (units unknown) (unknown) (unknown) (no date) (unknown) (unknown) Depression (-2002) ( units unknown) (unknown) (unknown) (no date) (unknown) (unknown) Dept at . (units unknown) (unknown) (unknown) (no date) (unknown) (unknown) Details: (units unknown) (unknown) (unknown) (no date) (unknown) (unknown) Diabetes mellitus (u nits unknown) (unknown) (unknown) (no date) (unknown) (unknown) Diarrhea (units unknown) (unknown) (unknown) (no date) (unknown) (unknown) Discontinued R asif: Order Change 30 mg PO QAM 30 caps 0RF F90.9 (units unknown) (unknown) (unknown) (no date) (unknown) (unknown) Discontinued (units unknown) (unknown) (unknown) (no date) (unknown) (unknown) Documented By: Mari Skinner 09/27/22 1106 (units unknown) (unknown) (unknown) (no date) (unknown) (unknown) Effexor Advers e Reaction (Mild, Uncoded 08/21/22 11:29) (units unknown) (unknown) (unknown) (no date) (unknown) (unknown) Exam Narrative (unit s unknown) (unknown) (unknown) (no date) (unknown) (unknown) Exam Narrative: (uni ts unknown) (unknown) (unknown) (no date) (unknown) (unknown) Exam (units unknown) (unknown) (unknown) (no date) (unknown) (unknown) Fall (units unknown) (unknown) (unknown) (no date) (unknown) (unknown) Family History (units unknown) (unknown) (unknown) (no date) (unknown) (unknown) Family Practic e Office Visit (units unknown) (unknown) (unknown) (no date) (unknown) (unknown) Father Canc er (units unknown) (unknown) (unknown) (no date) (unknown) (unknown) Fibroids (-2018) (un its unknown) (unknown) (unknown) (no date) (unknown) (unknown) Fibromyalgia (units unknown) (unknown) (unknown) (no date) (unknown) (unknown) [facility] (units unknown) (unknown) (unknown) (no date) (unknown) (unknown) Forgetfulness (units unknown) (unknown) (unknown) (no date) (unknown) (unknown) From lamotrigine (un its unknown) (unknown) (unknown) (no date) (unknown) (unknown) Grandfather Alyssa ng cancer (units unknown) (unknown) (unknown) (no date) (unknown) (unknown) Grandmother Jesse ceased Cancer (units unknown) (unknown) (unknown) (no date) (unknown) (unknown) HPI (units unknown) (unknown) (unknown) (no date) (unknown) (unknown) Heavy menstrual mati od (units unknown) (unknown) (unknown) (no date) (unknown) (unknown) History of bip olar disorder (units unknown) (unknown) (unknown) (no date) (unknown) (unknown) History of hea rt disease (units unknown) (unknown) (unknown) (no date) (unknown) (unknown) History of ofelia cement of ear tubes (-02/08/86) (units unknown) (unknown) (unknown) (no date) (unknown) (unknown) History of rec urrent ear infection (units unknown) (unknown) (unknown) (no date) (unknown) (unknown) Hypertension (units unknown) (unknown) (unknown) (no date) (unknown) (unknown) Intake (units unknown) (unknown) (unknown) (no date) (unknown) (unknown) Intractability : not intractable Migraine type: unspecified Status (units unknown) (unknown) (unknown) (no date) (unknown) (unknown) Chong has agree d to manage all of the patient's medications to keep her safe. She (units unknown) (unknown) (unknown) (no date) (unknown) (unknown) November or December b efore she can get in to see the psychiatrist.' (units unknown) (unknown) (unknown) (no date) (unknown) (unknown) Left shoulder pain ( units unknown) (unknown) (unknown) (no date) (unknown) (unknown) Liver cancer (units unknown) (unknown) (unknown) (no date) (unknown) (unknown) Loc: [facility] (units unknown) (unknown) (unknown) (no date) (unknown) (unknown) Location of [place] bur[place]:: home (units unknown) (unknown) (unknown) (no date) (unknown) (unknown) Location of pr ovider:: office (units unknown) (unknown) (unknown) (no date) (unknown) (unknown) Major depressi ve disorder, single episode, unspecified, F41.9 - Anxiety (units unknown) (unknown) (unknown) (no date) (unknown) (unknown) Medical Histor y (Updated 09/27/22 @ 11:29 by IKER Ying) (units unknown) (unknown) (unknown) (no date) (unknown) (unknown) Medications (units unknown) (unknown) (unknown) (no date) (unknown) (unknown) Medications: (units unknown) (unknown) (unknown) (no date) (unknown) (unknown) Mental health proble m (units unknown) (unknown) (unknown) (no date) (unknown) (unknown) Migraine, unsp ecified, not intractable, without status migrainosus (units unknown) (unknown) (unknown) (no date) (unknown) (unknown) Migraines (-1993) (u nits unknown) (unknown) (unknown) (no date) (unknown) (unknown) Mother d Hyperlipidemia (units unknown) (unknown) (unknown) (no date) (unknown) (unknown) Multi Vitamin 11/04/17 [History Confirmed 09/27/22] (units unknown) (unknown) (unknown) (no date) (unknown) (unknown) New (units unknown) (unknown) (unknown) (no date) (unknown) (unknown) Non-healing wound (u nits unknown) (unknown) (unknown) (no date) (unknown) (unknown) Not currently pregna nt (units unknown) (unknown) (unknown) (no date) (unknown) (unknown) PFSH (units unknown) (unknown) (unknown) (no date) (unknown) (unknown) PO .COMPLEX NM N pain #60 tabs 08/01/22 [Rx Confirmed 09/27/22] (units unknown) (unknown) (unknown) (no date) (unknown) (unknown) Painful menstr ual periods (units unknown) (unknown) (unknown) (no date) (unknown) (unknown) Patient consen gay to receive services via telehealth?: Yes (units unknown) (unknown) (unknown) (no date) (unknown) (unknown) Patient: Kirsten Braun MR#: [id number] (units unknown) (unknown) (unknown) (no date) (unknown) (unknown) Piriformis syn drome of both sides (units unknown) (unknown) (unknown) (no date) (unknown) (unknown) Plan (units unknown) (unknown) (unknown) (no date) (unknown) (unknown) Pt at this terrence e denies SI and has a supportive partner who is willing to keep (units unknown) (unknown) (unknown) (no date) (unknown) (unknown) Pt contracts n ot to hurt herself between now and the time she sees her (units unknown) (unknown) (unknown) (no date) (unknown) (unknown) Pt denies SI, denies feeling the need to take more than her prescribed (units unknown) (unknown) (unknown) (no date) (unknown) (unknown) Pt feels 'blin dsided' by this information, and patient wishes that her counselor (units unknown) (unknown) (unknown) (no date) (unknown) (unknown) Pt wonders whe n her last rx from adderall was written. She would like to (units unknown) (unknown) (unknown) (no date) (unknown) (unknown) Qualifiers: (units unknown) (unknown) (unknown) (no date) (unknown) (unknown) ROS (units unknown) (unknown) (unknown) (no date) (unknown) (unknown) RTC 1 month or sooner as needed. (units unknown) (unknown) (unknown) (no date) (unknown) (unknown) Real-time,[facility] services were performed via:: v-see (units unknown) (unknown) (unknown) (no date) (unknown) (unknown) Reason For Visit (un its unknown) (unknown) (unknown) (no date) (unknown) (unknown) Reports as per HPI ( units unknown) (unknown) (unknown) (no date) (unknown) (unknown) Right shoulder pain (units unknown) (unknown) (unknown) (no date) (unknown) (unknown) Sciatic leg pain (un its unknown) (unknown) (unknown) (no date) (unknown) (unknown) Scoliosis () (u nits unknown) (unknown) (unknown) (no date) (unknown) (unknown) She has had re cent past intent (2 recent hospitalizations) but pt denied intent (units unknown) (unknown) (unknown) (no date) (unknown) (unknown) She has used c ocaine (has not been 30 days sober), and snorts muscle relaxers (units unknown) (unknown) (unknown) (no date) (unknown) (unknown) She sees her a gain on Saturday. Had an assessment today for her substance abuse (units unknown) (unknown) (unknown) (no date) (unknown) (unknown) Signed By: <Electronically signed by Mari Skinner> (units unknown) (unknown) (unknown) (no date) (unknown) (unknown) Signed (units unknown) (unknown) (unknown) (no date) (unknown) (unknown) Skin changes o f breasts (units unknown) (unknown) (unknown) (no date) (unknown) (unknown) Smoking Status : Current some day smoker (units unknown) (unknown) (unknown) (no date) (unknown) (unknown) Social History (unit s unknown) (unknown) (unknown) (no date) (unknown) (unknown) Status: Acute (units unknown) (unknown) (unknown) (no date) (unknown) (unknown) Status: Chronic (uni ts unknown) (unknown) (unknown) (no date) (unknown) (unknown) Status: Inactive (un its unknown) (unknown) (unknown) (no date) (unknown) (unknown) Suicide attempt (uni ts unknown) (unknown) (unknown) (no date) (unknown) (unknown) Surgical Histo ry (units unknown) (unknown) (unknown) (no date) (unknown) (unknown) Take 1 1/2 tab s daily 150 mg (1.5 x 100 mg) PO DAILY 135 tabs 0RF F32.9 (units unknown) (unknown) (unknown) (no date) (unknown) (unknown) Take 1 tab liseth ly 100 mg PO DAILY 90 tabs 0RF F32.9 - Major depressive (units unknown) (unknown) (unknown) (no date) (unknown) (unknown) Take 1 tab liseth ly for ADHD (units unknown) (unknown) (unknown) (no date) (unknown) (unknown) Take daily 60 mg PO DAILY 90 caps 0RF (units unknown) (unknown) (unknown) (no date) (unknown) (unknown) TeleHealth (units unknown) (unknown) (unknown) (no date) (unknown) (unknown) This note may have been all or partially generated using voice recognition (units unknown) (unknown) (unknown) (no date) (unknown) (unknown) Thyroid disease (uni ts unknown) (unknown) (unknown) (no date) (unknown) (unknown) Time Coding Mi nutes Spent: (must be on same date of service/appointment) (units unknown) (unknown) (unknown) (no date) (unknown) (unknown) Time Spent (units unknown) (unknown) (unknown) (no date) (unknown) (unknown) To lamotrigine (unit s unknown) (unknown) (unknown) (no date) (unknown) (unknown) Tobacco + Subs tance Use (units unknown) (unknown) (unknown) (no date) (unknown) (unknown) Tobacco Status (unit s unknown) (unknown) (unknown) (no date) (unknown) (unknown) UTI (urinary t ract infection) (units unknown) (unknown) (unknown) (no date) (unknown) (unknown) Vaginal delivery (un its unknown) (unknown) (unknown) (no date) (unknown) (unknown) Visit Reasons: VIDEO:Suicidal Ideation/SO will be present- (units unknown) (unknown) (unknown) (no date) (unknown) (unknown) Were services performed via telephone only?: No (units unknown) (unknown) (unknown) (no date) (unknown) (unknown) addition to th e dextroamphetamine amphetamine. We will look to Psychiatry to (units unknown) (unknown) (unknown) (no date) (unknown) (unknown) alcohol intake: neve r (units unknown) (unknown) (unknown) (no date) (unknown) (unknown) amoxicillin Ad verse Reaction (Verified 08/21/22 11:29) (units unknown) (unknown) (unknown) (no date) (unknown) (unknown) and provide he r medications at the times they are scheduled for her safety, and (units unknown) (unknown) (unknown) (no date) (unknown) (unknown) atomoxetine 18 mg capsule 18 mg PO QAM #90 caps 10/02/22 [Rx] (units unknown) (unknown) (unknown) (no date) (unknown) (unknown) attempts. (units unknown) (unknown) (unknown) (no date) (unknown) (unknown) butalbital-elaine taminoph en-caffeine 50 mg-325 mg-40 mg tablet See Rx Instructions (units unknown) (unknown) (unknown) (no date) (unknown) (unknown) come off of e stimulant for ADHD and onto Strattera. From the conversation (units unknown) (unknown) (unknown) (no date) (unknown) (unknown) concerned cheo t access to her mental health medications and recommends that she (units unknown) (unknown) (unknown) (no date) (unknown) (unknown) contracts not to injure herself and will call for assistance if she does (units unknown) (unknown) (unknown) (no date) (unknown) (unknown) counselor.? (units unknown) (unknown) (unknown) (no date) (unknown) (unknown) daily, also us es alcohol. Has expressed she will use 'whatever is available.' (units unknown) (unknown) (unknown) (no date) (unknown) (unknown) dextroamphetam ine amphetamine ER 20mg 1 capsule daily, and consider increasing (units unknown) (unknown) (unknown) (no date) (unknown) (unknown) dextroamphetam ine-amph etamine 20 mg ER 20 mg PO QAM 30 caps 0RF (units unknown) (unknown) (unknown) (no date) (unknown) (unknown) dextroamphetam ine-amph etamine 30 mg ER (units unknown) (unknown) (unknown) (no date) (unknown) (unknown) dextroamphetam ine-amph etamine ER 20 mg 24hr capsule,extend release 20 mg PO QAM (units unknown) (unknown) (unknown) (no date) (unknown) (unknown) disorder, sing le episode, unspecified, F41.9 - Anxiety disorder, unspecified (units unknown) (unknown) (unknown) (no date) (unknown) (unknown) disorder, unspecifie d (units unknown) (unknown) (unknown) (no date) (unknown) (unknown) 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 Recommend pt continue her (units unknown) (unknown) (unknown) (no date) (unknown) (unknown) dose as ally try feels is appropriate. Pt may also benefit from stratera in (units unknown) (unknown) (unknown) (no date) (unknown) (unknown) duloxetine 60 mg capsule,delayed release 60 mg PO DAILY #90 caps 09/27/22 [Rx (units unknown) (unknown) (unknown) (no date) (unknown) (unknown) duloxetine (units unknown) (unknown) (unknown) (no date) (unknown) (unknown) experience fee lings of wanting to escape her feelings by suicide. Pt has appt (units unknown) (unknown) (unknown) (no date) (unknown) (unknown) filled this ye t, but will plan to. Continue duloxetine and lamotrigine as (units unknown) (unknown) (unknown) (no date) (unknown) (unknown) had suggested this to her so that she was not 'hit from left field' with this (units unknown) (unknown) (unknown) (no date) (unknown) (unknown) have her medic ation kept in a safe place, such as a safe, and that someone else (units unknown) (unknown) (unknown) (no date) (unknown) (unknown) have occurred. If there are any questions, please contact the Medical Records (units unknown) (unknown) (unknown) (no date) (unknown) (unknown) he seems commi tted to being a support person for her. Recommend she continue (units unknown) (unknown) (unknown) (no date) (unknown) (unknown) her other medi cations as prescribed. She has Dextroamphetamine Amphetamine 20mg (units unknown) (unknown) (unknown) (no date) (unknown) (unknown) hospitalized, she ODd on Hydroxyzine, but there was 'no intent to ,' and (units unknown) (unknown) (unknown) (no date) (unknown) (unknown) household memb ers: significant other and children (units unknown) (unknown) (unknown) (no date) (unknown) (unknown) hydroxyzine HC l 50 mg tablet 50 mg PO QID PRN anxiety #180 tabs 08/21/22 [Rx (units unknown) (unknown) (unknown) (no date) (unknown) (unknown) implement the Stratera sooner rather than later if this is the plan as she is (units unknown) (unknown) (unknown) (no date) (unknown) (unknown) in the househo ld manage her meds for her so that she does not have access to the (units unknown) (unknown) (unknown) (no date) (unknown) (unknown) lamotrigine 10 0 mg tablet 150 mg PO DAILY #135 tabs 09/27/22 [Rx Confirmed (units unknown) (unknown) (unknown) (no date) (unknown) (unknown) marital status : unmarried,living together (units unknown) (unknown) (unknown) (no date) (unknown) (unknown) may occur. Occ asional wrong-word or 'sound-alike' substitutions may have (units unknown) (unknown) (unknown) (no date) (unknown) (unknown) medication so that she can think clearly. Her SO is willing to lock up her meds (units unknown) (unknown) (unknown) (no date) (unknown) (unknown) medications. (units unknown) (unknown) (unknown) (no date) (unknown) (unknown) meds locked up in a safe. She is starting a new job and needs mental clarity to (units unknown) (unknown) (unknown) (no date) (unknown) (unknown) meds. Chong, he r SO, was identified by the patient as someone who she trusts. (units unknown) (unknown) (unknown) (no date) (unknown) (unknown) migrainosus pr esence: without status migrainosus Qualified Code(s): G43.909 (units unknown) (unknown) (unknown) (no date) (unknown) (unknown) occupational s tatus: employed (units unknown) (unknown) (unknown) (no date) (unknown) (unknown) occurred due t o the inherent limitations of voice recognition software. Please (units unknown) (unknown) (unknown) (no date) (unknown) (unknown) offices. 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 The second time she was (units unknown) (unknown) (unknown) (no date) (unknown) (unknown) postpone her appointment. (units unknown) (unknown) (unknown) (no date) (unknown) (unknown) prazosin 1 mg capsule 2 mg PO BEDTIME 09/27/22 [History Confirmed 09/27/22] (units unknown) (unknown) (unknown) (no date) (unknown) (unknown) prazosin 2 mg PO BEDTIME (units unknown) (unknown) (unknown) (no date) (unknown) (unknown) pregabalin 75 mg capsule 75 mg PO BID #180 caps 08/21/22 [Rx Confirmed 09/27/22] (units unknown) (unknown) (unknown) (no date) (unknown) (unknown) prescribe this medication if this feels is appropriate. (units unknown) (unknown) (unknown) (no date) (unknown) (unknown) prescribed, up dated list to reflect new dose of 200mg daily. (units unknown) (unknown) (unknown) (no date) (unknown) (unknown) psychiatrist. She is starting a new job next week and would like her ADHD (units unknown) (unknown) (unknown) (no date) (unknown) (unknown) quetiapine 100 mg tablet 100 mg PO .q 6 hours #180 tabs 08/21/22 [Rx Confirmed (units unknown) (unknown) (unknown) (no date) (unknown) (unknown) read the note carefully and recognize, using context, where these substitutions (units unknown) (unknown) (unknown) (no date) (unknown) (unknown) recommendation. 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 She is very (units unknown) (unknown) (unknown) (no date) (unknown) (unknown) trazodone 100 mg tablet 100 mg PO BEDTIME 08/21/22 [History Confirmed 09/27/22] (units unknown) (unknown) (unknown) (no date) (unknown) (unknown) up about SI an d the recommendation that her SO manage her medications, and to (units unknown) (unknown) (unknown) (no date) (unknown) (unknown) valacyclovir 5 00 mg tablet 500 mg PO BID 08/21/22 [History Confirmed 09/27/22] (units unknown) (unknown) (unknown) (no date) (unknown) (unknown) wanted symptom reduction, and Cheryl is concerned about her impulsiveness. (units unknown) (unknown) (unknown) (no date) (unknown) (unknown) with Rosalina Mccall: (un its unknown) (unknown) (unknown) (no date) (unknown) (unknown) yesterday dayanara ramos her visit for suicide.? Brought all of her meds with her (units unknown) (unknown) (unknown) (no date) (unknown) (unknown) yesterday for review. Her initial hospitalization early August, she called the (units unknown) (unknown) (unknown) (no date) (unknown) (unknown) yesterday, rep orts patient has a high level of impulsivity, and that she has (units unknown) (unknown) Result panel 4 (unknown) (no date) (unknown) (unknown) (no value) (units unknown) (unknown) (unknown) (no date) (unknown) (unknown) 11/08/22 (units unknown) (unknown) (unknown) (no date) (unknown) (unknown) [id number] (units unknown) (unknown) (unknown) (no date) (unknown) (unknown) 42F with PMH A DHD and SI with recent suicide attempt, fibromyalgia, chronic (units unknown) (unknown) (unknown) (no date) (unknown) (unknown) ADHD () (units unknown) (unknown) (unknown) (no date) (unknown) (unknown) Abnormal Pap s mear of cervix () (units unknown) (unknown) (unknown) (no date) (unknown) (unknown) Age/Sex: 42 / F Date of Service: (units unknown) (unknown) (unknown) (no date) (unknown) (unknown) Allergies (-1988) (u nits unknown) (unknown) (unknown) (no date) (unknown) (unknown) Allergies (units unknown) (unknown) (unknown) (no date) (unknown) (unknown) [place] [address] (units unknown) (unknown) (unknown) (no date) (unknown) (unknown) Anesthesia (units unknown) (unknown) (unknown) (no date) (unknown) (unknown) Anxiety () (uni ts unknown) (unknown) (unknown) (no date) (unknown) (unknown) Attending Dr: Mari DONG (units unknown) (unknown) (unknown) (no date) (unknown) (unknown) Back pain at L 4-L5 level () (units unknown) (unknown) (unknown) (no date) (unknown) (unknown) Biliary colic (units unknown) (unknown) (unknown) (no date) (unknown) (unknown) Chicken pox () (units unknown) (unknown) (unknown) (no date) (unknown) (unknown) Chief Complaint (uni ts unknown) (unknown) (unknown) (no date) (unknown) (unknown) Chief Complain t: f/up pain and ADHD (units unknown) (unknown) (unknown) (no date) (unknown) (unknown) Chronic hip pa in, bilateral (units unknown) (unknown) (unknown) (no date) (unknown) (unknown) Chronic right hip pa in (units unknown) (unknown) (unknown) (no date) (unknown) (unknown) Colon polyps () (units unknown) (unknown) (unknown) (no date) (unknown) (unknown) : 9 Acct:[id number] (units unknown) (unknown) (unknown) (no date) (unknown) (unknown) Depression (-2002) ( units unknown) (unknown) (unknown) (no date) (unknown) (unknown) Dept at [phone]. (units unknown) (unknown) (unknown) (no date) (unknown) (unknown) Details: (units unknown) (unknown) (unknown) (no date) (unknown) (unknown) Diabetes mellitus (u nits unknown) (unknown) (unknown) (no date) (unknown) (unknown) Diarrhea (units unknown) (unknown) (unknown) (no date) (unknown) (unknown) Documented By: Mari Skinner 11/08/22 0801 (units unknown) (unknown) (unknown) (no date) (unknown) (unknown) Draft (units unknown) (unknown) (unknown) (no date) (unknown) (unknown) Effexor Advers e Reaction (Mild, Uncoded 08/21/22 11:29) (units unknown) (unknown) (unknown) (no date) (unknown) (unknown) Fall (units unknown) (unknown) (unknown) (no date) (unknown) (unknown) Family History (units unknown) (unknown) (unknown) (no date) (unknown) (unknown) Family Practic e Office Visit (units unknown) (unknown) (unknown) (no date) (unknown) (unknown) Father Canc er (units unknown) (unknown) (unknown) (no date) (unknown) (unknown) Fibroids (-2017) (un its unknown) (unknown) (unknown) (no date) (unknown) (unknown) Fibromyalgia (units unknown) (unknown) (unknown) (no date) (unknown) (unknown) [facility] (units unknown) (unknown) (unknown) (no date) (unknown) (unknown) Forgetfulness (units unknown) (unknown) (unknown) (no date) (unknown) (unknown) Grandfather Alyssa ng cancer (units unknown) (unknown) (unknown) (no date) (unknown) (unknown) Grandmother De ceased Cancer (units unknown) (unknown) (unknown) (no date) (unknown) (unknown) HPI (units unknown) (unknown) (unknown) (no date) (unknown) (unknown) Heavy menstrual mati od (units unknown) (unknown) (unknown) (no date) (unknown) (unknown) History of bip olar disorder (units unknown) (unknown) (unknown) (no date) (unknown) (unknown) History of hea rt disease (units unknown) (unknown) (unknown) (no date) (unknown) (unknown) History of ofelia cement of ear tubes (-02/08/86) (units unknown) (unknown) (unknown) (no date) (unknown) (unknown) History of rec urrent ear infection (units unknown) (unknown) (unknown) (no date) (unknown) (unknown) Hypertension (units unknown) (unknown) (unknown) (no date) (unknown) (unknown) Intake (units unknown) (unknown) (unknown) (no date) (unknown) (unknown) Left shoulder pain ( units unknown) (unknown) (unknown) (no date) (unknown) (unknown) Liver cancer (units unknown) (unknown) (unknown) (no date) (unknown) (unknown) Loc: [facility] (units unknown) (unknown) (unknown) (no date) (unknown) (unknown) Medical Histor y (Updated 09/27/22 @ 11:29 by IKER Ying) (units unknown) (unknown) (unknown) (no date) (unknown) (unknown) Mental health proble m (units unknown) (unknown) (unknown) (no date) (unknown) (unknown) Migraines (-1993) (u nits unknown) (unknown) (unknown) (no date) (unknown) (unknown) Mother d Hyperlipidemia (units unknown) (unknown) (unknown) (no date) (unknown) (unknown) Non-healing wound (u nits unknown) (unknown) (unknown) (no date) (unknown) (unknown) Not currently pregna nt (units unknown) (unknown) (unknown) (no date) (unknown) (unknown) PFSH (units unknown) (unknown) (unknown) (no date) (unknown) (unknown) Painful menstr ual periods (units unknown) (unknown) (unknown) (no date) (unknown) (unknown) Patient: Kirsten Braun MR#: [id number] (units unknown) (unknown) (unknown) (no date) (unknown) (unknown) Piriformis syn drome of both sides (units unknown) (unknown) (unknown) (no date) (unknown) (unknown) Reason For Visit (un its unknown) (unknown) (unknown) (no date) (unknown) (unknown) Right shoulder pain (units unknown) (unknown) (unknown) (no date) (unknown) (unknown) Sciatic leg pain (un its unknown) (unknown) (unknown) (no date) (unknown) (unknown) Scoliosis (-1989) (u nits unknown) (unknown) (unknown) (no date) (unknown) (unknown) Signed By: (units unknown) (unknown) (unknown) (no date) (unknown) (unknown) Skin changes o f breasts (units unknown) (unknown) (unknown) (no date) (unknown) (unknown) Smoking Status : Current some day smoker (units unknown) (unknown) (unknown) (no date) (unknown) (unknown) Social History (unit s unknown) (unknown) (unknown) (no date) (unknown) (unknown) Antony is w orking for her, she is able to concentrate at her new job, but (units unknown) (unknown) (unknown) (no date) (unknown) (unknown) Suicide attempt (uni ts unknown) (unknown) (unknown) (no date) (unknown) (unknown) Surgical Histo ry (units unknown) (unknown) (unknown) (no date) (unknown) (unknown) This note may have been all or partially generated using voice recognition (units unknown) (unknown) (unknown) (no date) (unknown) (unknown) Thyroid disease (uni ts unknown) (unknown) (unknown) (no date) (unknown) (unknown) Tobacco + Subs tance Use (units unknown) (unknown) (unknown) (no date) (unknown) (unknown) Tobacco Status (unit s unknown) (unknown) (unknown) (no date) (unknown) (unknown) Saturday and due to the migraines. She is out of the medicine for her (units unknown) (unknown) (unknown) (no date) (unknown) (unknown) UTI (urinary t ract infection) (units unknown) (unknown) (unknown) (no date) (unknown) (unknown) Vaginal delivery (un its unknown) (unknown) (unknown) (no date) (unknown) (unknown) Visit Reasons: V-see, F/up ADHD, meds (units unknown) (unknown) (unknown) (no date) (unknown) (unknown) about her ADHD , medications, and pain. Pt reports she is having good days and (units unknown) (unknown) (unknown) (no date) (unknown) (unknown) alcohol intake: neve r (units unknown) (unknown) (unknown) (no date) (unknown) (unknown) amoxicillin Ad verse Reaction (Verified 08/21/22 11:29) (units unknown) (unknown) (unknown) (no date) (unknown) (unknown) bad days. Good days outnumber the bad as far as her pain goes. Feels the (units unknown) (unknown) (unknown) (no date) (unknown) (unknown) have occurred. If there are any questions, please contact the Medical Records (units unknown) (unknown) (unknown) (no date) (unknown) (unknown) headaches. (units unknown) (unknown) (unknown) (no date) (unknown) (unknown) household memb ers: significant other and children (units unknown) (unknown) (unknown) (no date) (unknown) (unknown) marital status : unmarried,living together (units unknown) (unknown) (unknown) (no date) (unknown) (unknown) may occur. Occ asional wrong-word or 'sound-alike' substitutions may have (units unknown) (unknown) (unknown) (no date) (unknown) (unknown) migraines have been getting worse, she thinks this is from staring at a computer (units unknown) (unknown) (unknown) (no date) (unknown) (unknown) occupational s tatus: employed (units unknown) (unknown) (unknown) (no date) (unknown) (unknown) occurred due t o the inherent limitations of voice recognition software. 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 errors (units unknown) (unknown) (unknown) (no date) (unknown) (unknown) substance use type: does not use (units unknown) (unknown) Result panel 5 (unknown) (no date) (unknown) (unknown) (no value) (units unknown) (unknown) (unknown) (no date) (unknown) (unknown) (1) ADHD: (units unknown) (unknown) (unknown) (no date) (unknown) (unknown) 11/08/22 (units unknown) (unknown) (unknown) (no date) (unknown) (unknown) [id number] (units unknown) (unknown) (unknown) (no date) (unknown) (unknown) 42F with PMH A DHD and SI with recent suicide attempt, fibromyalgia, chronic (units unknown) (unknown) (unknown) (no date) (unknown) (unknown) ADHD (-1982) (units unknown) (unknown) (unknown) (no date) (unknown) (unknown) Abnormal Pap s mear of cervix (-2017) (units unknown) (unknown) (unknown) (no date) (unknown) (unknown) Age/Sex: 42 / F Date of Service: (units unknown) (unknown) (unknown) (no date) (unknown) (unknown) Allergies (-1988) (u nits unknown) (unknown) (unknown) (no date) (unknown) (unknown) Allergies (units unknown) (unknown) (unknown) (no date) (unknown) (unknown) EDIE Richey [id number] (units unknown) (unknown) (unknown) (no date) (unknown) (unknown) Anesthesia (units unknown) (unknown) (unknown) (no date) (unknown) (unknown) Anxiety (-2002) (uni ts unknown) (unknown) (unknown) (no date) (unknown) (unknown) Assessment + Plan (u nits unknown) (unknown) (unknown) (no date) (unknown) (unknown) Attending Dr: Mari DONG (units unknown) (unknown) (unknown) (no date) (unknown) (unknown) Attention deficit-hyperactivity disorder type: unspecified Qualified (units unknown) (unknown) (unknown) (no date) (unknown) (unknown) Back pain at L 4-L5 level () (units unknown) (unknown) (unknown) (no date) (unknown) (unknown) Biliary colic (units unknown) (unknown) (unknown) (no date) (unknown) (unknown) Chicken pox () (units unknown) (unknown) (unknown) (no date) (unknown) (unknown) Chief Complaint (uni ts unknown) (unknown) (unknown) (no date) (unknown) (unknown) Chief Complain t: f/up pain and ADHD (units unknown) (unknown) (unknown) (no date) (unknown) (unknown) Chronic hip pa in, bilateral (units unknown) (unknown) (unknown) (no date) (unknown) (unknown) Chronic right hip pa in (units unknown) (unknown) (unknown) (no date) (unknown) (unknown) Code(s): F90.9 - Attention-deficit hyperactivity disorder, unspecified type (units unknown) (unknown) (unknown) (no date) (unknown) (unknown) Colon polyps () (units unknown) (unknown) (unknown) (no date) (unknown) (unknown) : 9 Acct:[id number] (units unknown) (unknown) (unknown) (no date) (unknown) (unknown) Depression (-2002) ( units unknown) (unknown) (unknown) (no date) (unknown) (unknown) Dept at . (units unknown) (unknown) (unknown) (no date) (unknown) (unknown) Details: (units unknown) (unknown) (unknown) (no date) (unknown) (unknown) Diabetes mellitus (u nits unknown) (unknown) (unknown) (no date) (unknown) (unknown) Diarrhea (units unknown) (unknown) (unknown) (no date) (unknown) (unknown) Discontinued R asif: Dose Change 18 mg PO QAM 90 caps 0RF (units unknown) (unknown) (unknown) (no date) (unknown) (unknown) Discontinued R asif: Patient no longer taking 20 mg PO QAM 30 caps 0RF (units unknown) (unknown) (unknown) (no date) (unknown) (unknown) Discontinued (units unknown) (unknown) (unknown) (no date) (unknown) (unknown) Documented By: Mari Skinner 11/08/22 0801 (units unknown) (unknown) (unknown) (no date) (unknown) (unknown) Draft (units unknown) (unknown) (unknown) (no date) (unknown) (unknown) Effexor Advers e Reaction (Mild, Uncoded 08/21/22 11:29) (units unknown) (unknown) (unknown) (no date) (unknown) (unknown) Fall (units unknown) (unknown) (unknown) (no date) (unknown) (unknown) Family History (units unknown) (unknown) (unknown) (no date) (unknown) (unknown) Family Practic e Office Visit (units unknown) (unknown) (unknown) (no date) (unknown) (unknown) Father Canc er (units unknown) (unknown) (unknown) (no date) (unknown) (unknown) Fibroids (-2017) (un its unknown) (unknown) (unknown) (no date) (unknown) (unknown) Fibromyalgia (units unknown) (unknown) (unknown) (no date) (unknown) (unknown) [facility] (units unknown) (unknown) (unknown) (no date) (unknown) (unknown) Forgetfulness (units unknown) (unknown) (unknown) (no date) (unknown) (unknown) Grandfather Alyssa ng cancer (units unknown) (unknown) (unknown) (no date) (unknown) (unknown) Grandmother De ceased Cancer (units unknown) (unknown) (unknown) (no date) (unknown) (unknown) HPI (units unknown) (unknown) (unknown) (no date) (unknown) (unknown) Heavy menstrual mati od (units unknown) (unknown) (unknown) (no date) (unknown) (unknown) History of bip olar disorder (units unknown) (unknown) (unknown) (no date) (unknown) (unknown) History of hea rt disease (units unknown) (unknown) (unknown) (no date) (unknown) (unknown) History of ofelia cement of ear tubes (-02/08/86) (units unknown) (unknown) (unknown) (no date) (unknown) (unknown) History of rec urrent ear infection (units unknown) (unknown) (unknown) (no date) (unknown) (unknown) Hypertension (units unknown) (unknown) (unknown) (no date) (unknown) (unknown) Intake (units unknown) (unknown) (unknown) (no date) (unknown) (unknown) Left shoulder pain ( units unknown) (unknown) (unknown) (no date) (unknown) (unknown) Liver cancer (units unknown) (unknown) (unknown) (no date) (unknown) (unknown) Loc: [facility] (units unknown) (unknown) (unknown) (no date) (unknown) (unknown) Medical Histor y (Updated 09/27/22 @ 11:29 by IKER Ying) (units unknown) (unknown) (unknown) (no date) (unknown) (unknown) Medications: (units unknown) (unknown) (unknown) (no date) (unknown) (unknown) Mental health proble m (units unknown) (unknown) (unknown) (no date) (unknown) (unknown) Migraines (-1993) (u nits unknown) (unknown) (unknown) (no date) (unknown) (unknown) Mother d Hyperlipidemia (units unknown) (unknown) (unknown) (no date) (unknown) (unknown) New (units unknown) (unknown) (unknown) (no date) (unknown) (unknown) Non-healing wound (u nits unknown) (unknown) (unknown) (no date) (unknown) (unknown) Not currently pregna nt (units unknown) (unknown) (unknown) (no date) (unknown) (unknown) PFSH (units unknown) (unknown) (unknown) (no date) (unknown) (unknown) Painful menstr ual periods (units unknown) (unknown) (unknown) (no date) (unknown) (unknown) Patient: Kirsten Braun MR#: [id number] (units unknown) (unknown) (unknown) (no date) (unknown) (unknown) Piriformis syn drome of both sides (units unknown) (unknown) (unknown) (no date) (unknown) (unknown) Qualifiers: (units unknown) (unknown) (unknown) (no date) (unknown) (unknown) Reason For Visit (un its unknown) (unknown) (unknown) (no date) (unknown) (unknown) Right shoulder pain (units unknown) (unknown) (unknown) (no date) (unknown) (unknown) Sciatic leg pain (un its unknown) (unknown) (unknown) (no date) (unknown) (unknown) Scoliosis (-1989) (u nits unknown) (unknown) (unknown) (no date) (unknown) (unknown) Signed By: (units unknown) (unknown) (unknown) (no date) (unknown) (unknown) Skin changes o f breasts (units unknown) (unknown) (unknown) (no date) (unknown) (unknown) Smoking Status : Current some day smoker (units unknown) (unknown) (unknown) (no date) (unknown) (unknown) Social History (unit s unknown) (unknown) (unknown) (no date) (unknown) (unknown) Status: Chronic (uni ts unknown) (unknown) (unknown) (no date) (unknown) (unknown) [facility] is w orking for her, she is able to concentrate at her new job, but (units unknown) (unknown) (unknown) (no date) (unknown) (unknown) Suicide attempt (uni ts unknown) (unknown) (unknown) (no date) (unknown) (unknown) Surgical Histo ry (units unknown) (unknown) (unknown) (no date) (unknown) (unknown) Take 1 cap liseth ly for ADHD 25 mg PO QAM 90 caps 0RF F90.9 - Attention-deficit (units unknown) (unknown) (unknown) (no date) (unknown) (unknown) This note may have been all or partially generated using voice recognition (units unknown) (unknown) (unknown) (no date) (unknown) (unknown) Thyroid disease (uni ts unknown) (unknown) (unknown) (no date) (unknown) (unknown) Tobacco + Subs tance Use (units unknown) (unknown) (unknown) (no date) (unknown) (unknown) Tobacco Status (unit s unknown) (unknown) (unknown) (no date) (unknown) (unknown) Saturday and due to the migraines. She has experienced 5 migraine days (units unknown) (unknown) (unknown) (no date) (unknown) (unknown) UTI (urinary t ract infection) (units unknown) (unknown) (unknown) (no date) (unknown) (unknown) Vaginal delivery (un its unknown) (unknown) (unknown) (no date) (unknown) (unknown) Visit Reasons: V-see, F/up ADHD, meds (units unknown) (unknown) (unknown) (no date) (unknown) (unknown) about her ADHD , medications, and pain. Pt reports she is having good days and (units unknown) (unknown) (unknown) (no date) (unknown) (unknown) alcohol intake: neve r (units unknown) (unknown) (unknown) (no date) (unknown) (unknown) amoxicillin Ad verse Reaction (Verified 08/21/22 11:29) (units unknown) (unknown) (unknown) (no date) (unknown) (unknown) atomoxetine (units unknown) (unknown) (unknown) (no date) (unknown) (unknown) bad days. Good days outnumber the bad as far as her pain goes. Feels the (units unknown) (unknown) (unknown) (no date) (unknown) (unknown) dextroamphetam ine-amph etamine 20 mg ER (units unknown) (unknown) (unknown) (no date) (unknown) (unknown) ever being on a migraine preventive previously. (units unknown) (unknown) (unknown) (no date) (unknown) (unknown) have occurred. If there are any questions, please contact the Medical Records (units unknown) (unknown) (unknown) (no date) (unknown) (unknown) household memb ers: significant other and children (units unknown) (unknown) (unknown) (no date) (unknown) (unknown) hyperactivity disorder, unspecified type (units unknown) (unknown) (unknown) (no date) (unknown) (unknown) marital status : unmarried,living together (units unknown) (unknown) (unknown) (no date) (unknown) (unknown) may occur. Occ asional wrong-word or 'sound-alike' substitutions may have (units unknown) (unknown) (unknown) (no date) (unknown) (unknown) migraines have been getting worse, she thinks this is from staring at a computer (units unknown) (unknown) (unknown) (no date) (unknown) (unknown) occupational s tatus: employed (units unknown) (unknown) (unknown) (no date) (unknown) (unknown) occurred due t o the inherent limitations of voice recognition software. 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 Sh marek is out of the medicine for her headaches. Pt does not remember (units unknown) (unknown) Result panel 6 (unknown) (no date) (unknown) (unknown) (no value) (units unknown) (unknown) (unknown) (no date) (unknown) (unknown) (1) ADHD: (units unknown) (unknown) (unknown) (no date) (unknown) (unknown) (2) Suicide attempt: (units unknown) (unknown) (unknown) (no date) (unknown) (unknown) (3) Fibromyalgia: (u nits unknown) (unknown) (unknown) (no date) (unknown) (unknown) (4) Headache: (units unknown) (unknown) (unknown) (no date) (unknown) (unknown) (5) Chronic ri ght hip pain: (units unknown) (unknown) (unknown) (no date) (unknown) (unknown) (6) Migraines: (unit s unknown) (unknown) (unknown) (no date) (unknown) (unknown) (7) Anxiety: (units unknown) (unknown) (unknown) (no date) (unknown) (unknown) (8) Depression: (uni ts unknown) (unknown) (unknown) (no date) (unknown) (unknown) (9) Back pain at L4-L5 level: (units unknown) (unknown) (unknown) (no date) (unknown) (unknown) 11/08/22 0824 (units unknown) (unknown) (unknown) (no date) (unknown) (unknown) 11/08/22 (units unknown) (unknown) (unknown) (no date) (unknown) (unknown) [id number] (units unknown) (unknown) (unknown) (no date) (unknown) (unknown) 23 mins (units unknown) (unknown) (unknown) (no date) (unknown) (unknown) 3RF pain G89.2 9 - Other chronic pain, R51 - Headache, R51.9 - Headache, (units unknown) (unknown) (unknown) (no date) (unknown) (unknown) 42F with PMH A DHD and SI with recent suicide attempt, fibromyalgia, chronic (units unknown) (unknown) (unknown) (no date) (unknown) (unknown) ADHD (-1982) (units unknown) (unknown) (unknown) (no date) (unknown) (unknown) ADHD: Patient feels like the DICOM Grid is working for her, could be a little (units unknown) (unknown) (unknown) (no date) (unknown) (unknown) Abnormal Pap s mear of cervix (-2017) (units unknown) (unknown) (unknown) (no date) (unknown) (unknown) Add'l Plan Details ( units unknown) (unknown) (unknown) (no date) (unknown) (unknown) Add'l Plan*: (units unknown) (unknown) (unknown) (no date) (unknown) (unknown) Age/Sex: 42 / F Date of Service: (units unknown) (unknown) (unknown) (no date) (unknown) (unknown) All participan ts + their role: (Providers,Parent,Spou se,etc): (units unknown) (unknown) (unknown) (no date) (unknown) (unknown) Allergies () (u nits unknown) (unknown) (unknown) (no date) (unknown) (unknown) Allergies (units unknown) (unknown) (unknown) (no date) (unknown) (unknown) [place] [address] (units unknown) (unknown) (unknown) (no date) (unknown) (unknown) Anesthesia (units unknown) (unknown) (unknown) (no date) (unknown) (unknown) Anxiety () (uni ts unknown) (unknown) (unknown) (no date) (unknown) (unknown) Assessment + Plan (u nits unknown) (unknown) (unknown) (no date) (unknown) (unknown) Attending Dr: Mari DONG (units unknown) (unknown) (unknown) (no date) (unknown) (unknown) Attention deficit-hyperactivity disorder type: unspecified Qualified (units unknown) (unknown) (unknown) (no date) (unknown) (unknown) Back pain at L 4-L5 level () (units unknown) (unknown) (unknown) (no date) (unknown) (unknown) Biliary colic (units unknown) (unknown) (unknown) (no date) (unknown) (unknown) Chicken pox () (units unknown) (unknown) (unknown) (no date) (unknown) (unknown) Chief Complaint (uni ts unknown) (unknown) (unknown) (no date) (unknown) (unknown) Chief Complain t: f/up pain and ADHD (units unknown) (unknown) (unknown) (no date) (unknown) (unknown) Chronic hip pa in, bilateral (units unknown) (unknown) (unknown) (no date) (unknown) (unknown) Chronic right hip pa in (units unknown) (unknown) (unknown) (no date) (unknown) (unknown) Code(s): F90.9 - Attention-deficit hyperactivity disorder, unspecified type (units unknown) (unknown) (unknown) (no date) (unknown) (unknown) Colon polyps (-2018) (units unknown) (unknown) (unknown) (no date) (unknown) (unknown) Const (units unknown) (unknown) (unknown) (no date) (unknown) (unknown) : 9 Acct:[id number] (units unknown) (unknown) (unknown) (no date) (unknown) (unknown) Depression (-2002) ( units unknown) (unknown) (unknown) (no date) (unknown) (unknown) Depression Typ e: unspecified Qualified Code(s): F32.A - Depression, (units unknown) (unknown) (unknown) (no date) (unknown) (unknown) Depression/SI: Pt denies current SI, has her SO helping her manage her (units unknown) (unknown) (unknown) (no date) (unknown) (unknown) Dept at . (units unknown) (unknown) (unknown) (no date) (unknown) (unknown) Details: (units unknown) (unknown) (unknown) (no date) (unknown) (unknown) Diabetes mellitus (u nits unknown) (unknown) (unknown) (no date) (unknown) (unknown) Diarrhea (units unknown) (unknown) (unknown) (no date) (unknown) (unknown) Discontinued R asif: Dose Change 18 mg PO QAM 90 caps 0RF (units unknown) (unknown) (unknown) (no date) (unknown) (unknown) Discontinued R asif: Patient no longer taking 20 mg PO QAM 30 caps 0RF (units unknown) (unknown) (unknown) (no date) (unknown) (unknown) Discontinued (units unknown) (unknown) (unknown) (no date) (unknown) (unknown) Documented By: Mari Skinner 11/08/22 0801 (units unknown) (unknown) (unknown) (no date) (unknown) (unknown) Effexor Advers e Reaction (Mild, Uncoded 08/21/22 11:29) (units unknown) (unknown) (unknown) (no date) (unknown) (unknown) Exam Narrative (unit s unknown) (unknown) (unknown) (no date) (unknown) (unknown) Exam Narrative: (uni ts unknown) (unknown) (unknown) (no date) (unknown) (unknown) Exam (units unknown) (unknown) (unknown) (no date) (unknown) (unknown) Fall (units unknown) (unknown) (unknown) (no date) (unknown) (unknown) Family History (units unknown) (unknown) (unknown) (no date) (unknown) (unknown) Family Practic e Office Visit (units unknown) (unknown) (unknown) (no date) (unknown) (unknown) Father Canc er (units unknown) (unknown) (unknown) (no date) (unknown) (unknown) Fibroids (-2017) (un its unknown) (unknown) (unknown) (no date) (unknown) (unknown) Fibromyalgia (units unknown) (unknown) (unknown) (no date) (unknown) (unknown) [facility] (units unknown) (unknown) (unknown) (no date) (unknown) (unknown) Forgetfulness (units unknown) (unknown) (unknown) (no date) (unknown) (unknown) Grandfather Alyssa ng cancer (units unknown) (unknown) (unknown) (no date) (unknown) (unknown) Grandmother De ceased Cancer (units unknown) (unknown) (unknown) (no date) (unknown) (unknown) HPI (units unknown) (unknown) (unknown) (no date) (unknown) (unknown) Headache type: tension-type Headache chronicity pattern: chronic (units unknown) (unknown) (unknown) (no date) (unknown) (unknown) Headaches: Pt has had 5 migraine days this month. Has never been on a (units unknown) (unknown) (unknown) (no date) (unknown) (unknown) Heavy menstrual mati od (units unknown) (unknown) (unknown) (no date) (unknown) (unknown) History of bip olar disorder (units unknown) (unknown) (unknown) (no date) (unknown) (unknown) History of hea rt disease (units unknown) (unknown) (unknown) (no date) (unknown) (unknown) History of ofelia cement of ear tubes (-02/08/86) (units unknown) (unknown) (unknown) (no date) (unknown) (unknown) History of rec urrent ear infection (units unknown) (unknown) (unknown) (no date) (unknown) (unknown) Hypertension (units unknown) (unknown) (unknown) (no date) (unknown) (unknown) Intake (units unknown) (unknown) (unknown) (no date) (unknown) (unknown) Left shoulder pain ( units unknown) (unknown) (unknown) (no date) (unknown) (unknown) Liver cancer (units unknown) (unknown) (unknown) (no date) (unknown) (unknown) Loc: [facility] (units unknown) (unknown) (unknown) (no date) (unknown) (unknown) Location of pa tient:: home (units unknown) (unknown) (unknown) (no date) (unknown) (unknown) Location of pr ovider:: office (units unknown) (unknown) (unknown) (no date) (unknown) (unknown) Major depressi ve disorder, single episode, unspecified, F41.9 - Anxiety (units unknown) (unknown) (unknown) (no date) (unknown) (unknown) Medical Histor y (units unknown) (unknown) (unknown) (no date) (unknown) (unknown) Medications: (units unknown) (unknown) (unknown) (no date) (unknown) (unknown) Mental health proble m (units unknown) (unknown) (unknown) (no date) (unknown) (unknown) Migraine type: unspecified Status migrainosus presence: without status (units unknown) (unknown) (unknown) (no date) (unknown) (unknown) Migraine, unsp ecified, not intractable, without status migrainosus (units unknown) (unknown) (unknown) (no date) (unknown) (unknown) Migraines (-1993) (u nits unknown) (unknown) (unknown) (no date) (unknown) (unknown) Mother d Hyperlipidemia (units unknown) (unknown) (unknown) (no date) (unknown) (unknown) New (units unknown) (unknown) (unknown) (no date) (unknown) (unknown) Non-healing wound (u nits unknown) (unknown) (unknown) (no date) (unknown) (unknown) Not currently pregna nt (units unknown) (unknown) (unknown) (no date) (unknown) (unknown) PFSH (units unknown) (unknown) (unknown) (no date) (unknown) (unknown) Pain managemen t: Well managed with current POC. Continue pregabalin as (units unknown) (unknown) (unknown) (no date) (unknown) (unknown) Painful menstr ual periods (units unknown) (unknown) (unknown) (no date) (unknown) (unknown) Patient consen gay to receive services via telehealth?: Yes (units unknown) (unknown) (unknown) (no date) (unknown) (unknown) Patient presen ts via v-see f/up ADHD and pain (units unknown) (unknown) (unknown) (no date) (unknown) (unknown) Patient: Kirsten Braun MR#: [id number] (units unknown) (unknown) (unknown) (no date) (unknown) (unknown) Piriformis syn drome of both sides (units unknown) (unknown) (unknown) (no date) (unknown) (unknown) Qualifiers: (units unknown) (unknown) (unknown) (no date) (unknown) (unknown) ROS (units unknown) (unknown) (unknown) (no date) (unknown) (unknown) RTC 3 mos or s ooner as needed. (units unknown) (unknown) (unknown) (no date) (unknown) (unknown) Real-time,sych ronous services were performed via:: v-see (units unknown) (unknown) (unknown) (no date) (unknown) (unknown) Reason For Visit (un its unknown) (unknown) (unknown) (no date) (unknown) (unknown) Refilled (units unknown) (unknown) (unknown) (no date) (unknown) (unknown) Reports as per HPI ( units unknown) (unknown) (unknown) (no date) (unknown) (unknown) Right shoulder pain (units unknown) (unknown) (unknown) (no date) (unknown) (unknown) Sciatic leg pain (un its unknown) (unknown) (unknown) (no date) (unknown) (unknown) Scoliosis (-1989) (u nits unknown) (unknown) (unknown) (no date) (unknown) (unknown) Signed By: <Electronically signed by Mari Skinner> (units unknown) (unknown) (unknown) (no date) (unknown) (unknown) Signed (units unknown) (unknown) (unknown) (no date) (unknown) (unknown) Skin changes o f breasts (units unknown) (unknown) (unknown) (no date) (unknown) (unknown) Smoking Status : Current some day smoker (units unknown) (unknown) (unknown) (no date) (unknown) (unknown) Social History (unit s unknown) (unknown) (unknown) (no date) (unknown) (unknown) Status: Acute (units unknown) (unknown) (unknown) (no date) (unknown) (unknown) Status: Chronic (uni ts unknown) (unknown) (unknown) (no date) (unknown) (unknown) [facility] is w orking for her, she is able to concentrate at her new job, but (units unknown) (unknown) (unknown) (no date) (unknown) (unknown) Suicide attempt (uni ts unknown) (unknown) (unknown) (no date) (unknown) (unknown) Surgical Histo ry (units unknown) (unknown) (unknown) (no date) (unknown) (unknown) Take 1 1/2 tab s daily 150 mg (1.5 x 100 mg) PO DAILY 135 tabs 3RF F32.9 (units unknown) (unknown) (unknown) (no date) (unknown) (unknown) Take 1 cap liseth ly for ADHD 25 mg PO QAM 90 caps 0RF F90.9 - Attention-deficit (units unknown) (unknown) (unknown) (no date) (unknown) (unknown) TeleHealth (units unknown) (unknown) (unknown) (no date) (unknown) (unknown) This note may have been all or partially generated using voice recognition (units unknown) (unknown) (unknown) (no date) (unknown) (unknown) Thyroid disease (uni ts unknown) (unknown) (unknown) (no date) (unknown) (unknown) Time Coding Mi nutes Spent: (must be on same date of service/appointment) (units unknown) (unknown) (unknown) (no date) (unknown) (unknown) Time Spent (units unknown) (unknown) (unknown) (no date) (unknown) (unknown) Tobacco + Subs tance Use (units unknown) (unknown) (unknown) (no date) (unknown) (unknown) Tobacco Status (unit s unknown) (unknown) (unknown) (no date) (unknown) (unknown) Saturday and We due to the migraines. She has experienced 5 migraine days (units unknown) (unknown) (unknown) (no date) (unknown) (unknown) UTI (urinary t ract infection) (units unknown) (unknown) (unknown) (no date) (unknown) (unknown) Vaginal delivery (un its unknown) (unknown) (unknown) (no date) (unknown) (unknown) Visit Reasons: V-see, F/up ADHD, meds (units unknown) (unknown) (unknown) (no date) (unknown) (unknown) Were services performed via telephone only?: No (units unknown) (unknown) (unknown) (no date) (unknown) (unknown) about her ADHD , medications, and pain. Pt reports she is having good days and (units unknown) (unknown) (unknown) (no date) (unknown) (unknown) alcohol intake: neve r (units unknown) (unknown) (unknown) (no date) (unknown) (unknown) amoxicillin Ad verse Reaction (Verified 08/21/22 11:29) (units unknown) (unknown) (unknown) (no date) (unknown) (unknown) atomoxetine (units unknown) (unknown) (unknown) (no date) (unknown) (unknown) bad days. Good days outnumber the bad as far as her pain goes. Feels the (units unknown) (unknown) (unknown) (no date) (unknown) (unknown) better as far as attention. Recommend we increase her dose to 25mg each morning, (units unknown) (unknown) (unknown) (no date) (unknown) (unknown) butalbital-elaine taminoph en-caff 50-325-40 mg 2 tabs PO .6 to 8 hours PRN 60 tabs (units unknown) (unknown) (unknown) (no date) (unknown) (unknown) dextroamphetam ine-amph etamine 20 mg ER (units unknown) (unknown) (unknown) (no date) (unknown) (unknown) disorder, unspecifie d (units unknown) (unknown) (unknown) (no date) (unknown) (unknown) ever being on a migraine preventive previously. (units unknown) (unknown) (unknown) (no date) (unknown) (unknown) experiencing S I again. Continue mood stabilizers and antidepressants as (units unknown) (unknown) (unknown) (no date) (unknown) (unknown) filled [facility] August. Refill provided. (units unknown) (unknown) (unknown) (no date) (unknown) (unknown) have occurred. If there are any questions, please contact the Medical Records (units unknown) (unknown) (unknown) (no date) (unknown) (unknown) headache Intractability: not intractable Qualified Code(s): G44.229 - Chronic (units unknown) (unknown) (unknown) (no date) (unknown) (unknown) household memb ers: significant other and children (units unknown) (unknown) (unknown) (no date) (unknown) (unknown) hyperactivity disorder, unspecified type (units unknown) (unknown) (unknown) (no date) (unknown) (unknown) lamotrigine (units unknown) (unknown) (unknown) (no date) (unknown) (unknown) marital status : unmarried,living together (units unknown) (unknown) (unknown) (no date) (unknown) (unknown) may occur. Occ asional wrong-word or 'sound-alike' substitutions may have (units unknown) (unknown) (unknown) (no date) (unknown) (unknown) medications. S he has the emergency assistance information if she starts (units unknown) (unknown) (unknown) (no date) (unknown) (unknown) migraines have been getting worse, she thinks this is from staring at a computer (units unknown) (unknown) (unknown) (no date) (unknown) (unknown) migrainosus Intractability: not intractable Qualified Code(s): G43.909 (units unknown) (unknown) (unknown) (no date) (unknown) (unknown) occupational s tatus: employed (units unknown) (unknown) (unknown) (no date) (unknown) (unknown) occurred due t o the inherent limitations of voice recognition software. Please (units unknown) (unknown) (unknown) (no date) (unknown) (unknown) pain, fatigue, head injury, and chronic back pain presents today to follow up (units unknown) (unknown) (unknown) (no date) (unknown) (unknown) patient and provider (units unknown) (unknown) (unknown) (no date) (unknown) (unknown) position about a month ago, she was out Saturday with a migraine, and was out (units unknown) (unknown) (unknown) (no date) (unknown) (unknown) prescribed. (units unknown) (unknown) (unknown) (no date) (unknown) (unknown) preventative medication previously. Fioricet working well for her and she hasn't (units unknown) (unknown) (unknown) (no date) (unknown) (unknown) pt in favor. 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 Sh marek is out of the medicine for her headaches. Pt does not remember (units unknown) (unknown) (unknown) (no date) (unknown) (unknown) this new dose is working for her. (units unknown) (unknown) (unknown) (no date) (unknown) (unknown) unspecified (units unknown) (unknown) Social History date description facility 2022-09-27 00:00 Current some day [facility] 2022-11-08 00:00 Current some day [facility]
[2022-11-23 23:30] LABS: MUDS CUTOFF CONCENTRATIONS CUTOFF CONC BELOW:
[2022-11-23 23:33] LABS: BILIRUBIN,URINE NEGATIVE (NEGATIVE); GLUCOSE, URINE (UA) NEGATIVE (NEGATIVE); KETONES,URINE (UA) NEGATIVE (NEGATIVE); LEUKOCYTE ESTERASE, URINE NEGATIVE (NEGATIVE); NITRITE,URINE NEGATIVE (NEGATIVE); OCCULT BLOOD,URINE NEGATIVE (NEGATIVE); PROTEIN,URINE NEGATIVE (NEGATIVE); UROBILINOGEN,URINE 0.2 (NORMAL) E.U./dL (NORMAL)
[2022-11-23 23:36] LABS: CLARITY,URINE CLEAR (CLEAR)
[2022-11-23 23:37] LABS: HCG UR QUAL NEGATIVE
[2022-11-23 23:43] LABS: ACETAMINOPHEN < 10 ug/mL (10-30); ALBUMIN 3.4 g/dL (3.2-5.5); ALKALINE PHOSPHATASE 79 IU/L (42-121); ALT ALANINE AMINOTRANSFERASE 15 IU/L (10-60); AST ASPARTATE AMINOTRANSFERASE 15 IU/L (10-42); BILIRUBIN,TOTAL 0.6 mg/dL (0.2-1.0); BUN - BLOOD UREA NITROGEN 9 mg/dL (6-20); CALCIUM 8.3 mg/dL (8.5-10.3); CARBON DIOXIDE - CO2 20 mmol/L (21-32); CHLORIDE 109 mmol/L (101-111); CK- CREATINE KINASE 32 IU/L (22-269); CREATININE 0.7 mg/dL (0.4-1.0); ETOH - ETHANOL 49.2 mg/dL; GFR - MDRD 91 (>89); GLUCOSE 175 mg/dL (70-100); LIPASE 24 U/L (22-51); MAGNESIUM 2.1 mg/dL (1.7-2.8); POTASSIUM 3.1 mmol/L (3.5-5.0); SALICYLATE < 6.0 mg/dL; SODIUM 140 mmol/L (135-145); TOTAL PROTEIN 6.7 g/dL (6.7-8.2)
[2022-11-23 23:50] LABS: AMPHETAMINE SCREEN,URINE NEGATIVE (NEGATIVE); BARBITURATE SCREEN,UR POSITIVE (NEGATIVE); BENZODIAZEPINES SCREEN, URINE NEGATIVE (NEGATIVE); COCAINE SCREEN URINE NEGATIVE (NEGATIVE); METHADONE SCREEN, URINE NEGATIVE (NEGATIVE); METHAMPHETAMINES SCREEN, URINE NEGATIVE (NEGATIVE); OPIATE SCREEN, URINE NEGATIVE (NEGATIVE); OXYCODONE SCREEN, URINE NEGATIVE (NEGATIVE); PROPOXYPHENE SCREEN, URINE NEGATIVE (NEGATIVE); THC CANNABINOID SCREEN, URINE NEGATIVE (NEGATIVE); TRICYCLIC ANTIDEPRESSANT,URINE POSITIVE (NEGATIVE)
[2022-11-24] MEDS ORDERED: POTASSIUM CHLOR 10 MEQ/100 ML 10 MEQ/100 ML BAG IV STA (00:20)
--- NOTE | 2022-11-24 06:34 | HISTORY & PHYSICAL EXAMINATION ---
Chief Complaint - Chief Complaint Chief Complaint: suicide attempt / drug OD History of Present Illness - History of Present Illness HPI Comment/Other: details are limited as patient is unable to provide history and no family available. per ed report, pt has h/o suicide ideation and attempts, and last night she had texted her family that they will not need to worry about her anymore, and the paramedics were called, who had found her down. they had given her some naloxone, which seemed to make her more arousable. no falls or seizures noted or reported. History - Past Medical History Cardiovascular: reports: None (unable to obtain family history at this time to [facility] and no family available currently) Respiratory: reports: None Neuro: reports: None Endocrine/Autoimmune: reports: None GI: reports: Other [employer]: reports: Ovarian cysts : reports: None HEENT: reports: None Psych: reports: Depression, Bipolar disorder, ADD/ADHD Musculoskeletal: reports: None Derm: reports: None MRSA Hx?: No - Past Surgical History General: reports: Cholecystectomy HEENT: reports: Myringotomy (tubes), Tonsil/Adenoidectomy Derm: reports: Other - POLST Patient has POLST: No Meds/Allgy - Home Medications Home Medications: Ambulatory Orders Medication Instructions Recorded Confirmed DULoxetine [Cymbalta] 60 mg PO DAILY 08/28/22 08/28/22 Dextroamphetamine/Amphetamine 30 mg PO DAILY PM 08/28/22 08/28/22 [Adderall 20 mg Tablet] Gabapentin [Neurontin] 100 mg PO TID 08/28/22 08/28/22 Pregabalin [Lyrica] 75 mg PO BID 08/28/22 08/28/22 QUEtiapine [SEROquel] 100 mg PO QPM 08/28/22 08/28/22 Trazodone HCl 100 mg PO HS 08/28/22 08/28/22 hydrOXYzine PAMOATE [Vistaril] 25 mg PO Q6H 08/28/22 08/28/22 lamoTRIgine [LaMICtal] 100 mg PO DAILY 08/28/22 08/28/22 - Allergies Allergies/Adverse Reactions: Allergies Allergy/AdvReac Type Severity Reaction Status Date / Time amoxicillin AdvReac Intermediate diarrhea Verified 11/23/22 23:20 nortriptyline AdvReac Unknown Verified 06/16/23 23:20 Review of Systems - Other Findings Other Findings: unable to obtain d/t AMS / toxic, metabolic encephalopathy Exam - Vital Signs Vital Signs: Vital Signs x48h Temp Pulse Resp BP Pulse Ox 11/24/22 06:00 104 H 17 96/71 100 11/24/22 05:30 104 H 14 116/76 100 11/24/22 04:30 98 15 122/76 99 11/24/22 04:00 99 16 116/70 99 11/24/22 03:30 105 H 12 113/66 100 11/24/22 03:00 109 H 12 125/80 100 11/24/22 02:30 112 H 13 121/75 100 11/24/22 01:50 115 H 12 104/72 100 11/24/22 01:20 36.6 C 114 H 13 124/70 100 11/24/22 00:50 99 14 99 11/24/22 00:20 100 11 L 96/64 97 11/23/22 23:50 102 H 11 L 112/67 97 11/23/22 23:17 36.3 C L 130 H 12 108/66 95 - Physical Exam Comments/Other: gen - asleep, wakes up and falls back asleep heent - nc/at heart - rrr per rn lungs - some coarse sounds per en abd - soft, nt, bsx4 per rn msk - no acute trauma noted Conclusion/Plan - Lab Results Fish Bones: 11/23/22 23:18 11/23/22 23:18 - Other Other Results/Comments: pt with - - toxic, metabolic encephalopathy in setting of intentional drug OD as suicide attempt (below) no focal deficits noted head CT ordered, with official read pending - possible aspiration pna noted in discussions with ED provider will start - hypokalemia replete, check mag - elevated TSH concern for uncontrolled hypothyroidism will check full thyroid panel - intentional drug OD unclear which drug / med, but UDS is positive for barbiturates and tricyclics all home meds held no acute tele / ekg changes noted or reported replete electrolytes, supportive care - suicide attempt with h/o same will need social work supervisor and psych evaluation, once medically stable and alert f/u labs, replete electrolytes further orders per clinical course
[2022-11-24 07:31] LABS: CHOL/HDL RATIO 3.8 (<4.4); CHOLESTEROL 210 mg/dL; HDL CHOLESTEROL 56 mg/dL; LDL CHOLESTEROL,CALCULATED 129 mg/dL; LDL/HDL RATIO 2.3 (<4.4); TRIGLYCERIDES 127 mg/dL; VLDL CHOLESTEROL 25 mg/dL
[2022-11-24] MEDS: SODIUM CHLORIDE FLUSH 0.9% 10 ML SYRINGE IVP SCH ×3 (09:13→20:02)
[2022-11-24] MEDS: ENOXAPARIN 40 MG/0.4 ML SYRINGE SUBQ SCH (09:21)
[2022-11-24] MEDS: LACTATED RINGERS 1,000 ML IV SCH ×2 (09:21→19:07)
[2022-11-24] MEDS: FAMOTIDINE 20 MG/2 ML VIAL IVP SCH ×2 (09:34→20:03)
--- NOTE | 2022-11-24 10:10 | CT Report ---
PROCEDURE: CT brain without contrast INDICATIONS: AMS TECHNIQUE: Noncontrast 4.5 mm thick angled axial sections acquired from the foramen magnum to the vertex. For r adiation dose reduction, the following was used: automated exposure control, adjustment of mA and/or kV according to patient size. COMPARISON: 12/07/2019 FINDINGS: Image quality: Excellent. CSF spaces: Basal cisterns are patent. No extra-axial fluid collections. Ventricles are normal in size and shape. Brain: No midline shift. No intracranial masses or hemorrhage. Salazar-white matter interface is norm al. Skull and face: Calvarium and visualized facial bones are intact, without suspicious lesions. Sinuses: Visualized sinuses and mastoids are clear. IMPRESSION: Normal CT of the brain Note: Final report is concordant with preliminary interpretation provided by [employer] Reviewed by: Thom Mensah MD on 11/24/2022 9:08 AM VLADIMIR Approved by: Thom Mensah MD on 11/24/2022 9:08 AM VLADIMIR Station ID: [id number]
--- NOTE | 2022-11-24 10:13 | XRAY Report ---
PROCEDURE: Chest 1 View X-Ray INDICATIONS: AMS TECHNIQUE: One view of the chest was acquired. COMPARISON: 03/29/2021 FINDINGS: Surgical changes and devices: None. Lungs and pleura: No pleural effusions or pneumothorax. Lungs are clear. Mediastinum: Mediastinal contours appear normal. Heart size is normal. Bones and chest wall: No suspicious bony lesions. Overlying soft tissues appear unremarkable. IMPRESSION: No acute cardiopulmonary process. Reviewed by: Thom Mensah MD on 11/24/2022 9:11 AM VLADIMIR Approved by: Thom Mensah MD on 11/24/2022 9:11 AM VLADIMIR Station ID: [id number]
[2022-11-24] MEDS: POTASSIUM CHLOR 10 MEQ/100 ML 10 MEQ/100 ML BAG IV SCH ×5 (10:44→23:06)
--- NOTE | 2022-11-24 11:08 | PHARMACY PROGRESS NOTE ---
- Best Possible Medication History Admit Date and Time: 11/24/22 1026 Processed by: Pharmacy Medication History completed: Yes Patient Interview: Pt unable to participate Secondary Source(s): Pharmacy records As the person ultimately responsible for medication therapy, providers are able to order a medication from an existing home medication list in [facility] via the "Reconcile Routine" prior to Confirmation of that medication by home support worker. Such practice is discouraged except when the physician, in their clinical judgment, deems that a medical need exists for a medication without regard to previous use.
[2022-11-24 11:44] LABS: ESTIMATED AVERAGE GLUCOSE 105 mg/dL (70-100); HEMOGLOBIN A1c% 5.3 % (4.27-6.07)
[2022-11-24] MEDS: ACETAMINOPHEN 1,000 MG/100 ML 1,000 MG/100 ML BAG IV PRN (16:41)
[2022-11-24 16:42] LABS: CALCIUM, IONIZED 1.11 mmol/L (1.15-1.33); VBG PH 7.483 (7.31-7.41)
[2022-11-24 16:53] LABS: MAGNESIUM 1.9 mg/dL (1.7-2.8); POTASSIUM 3.9 mmol/L (3.5-5.0)
[2022-11-24] MEDS ORDERED: POTASSIUM CHLOR 10 MEQ/100 ML 10 MEQ/100 ML BAG IV SCH (20:00)
[2022-11-24] MEDS: SODIUM CHLORIDE FLUSH 0.9% 10 ML SYRINGE IVP PRN (20:03)
[2022-11-25] MEDS: POTASSIUM CHLOR 10 MEQ/100 ML 10 MEQ/100 ML BAG IV SCH (00:08)
[2022-11-25] MEDS: LACTATED RINGERS 1,000 ML IV SCH ×2 (04:55→14:54)
[2022-11-25 05:04] LABS: BASOPHILS % (AUTO) 0.4 %; EOSINOPHILS # (AUTO) 0.4 10^3/uL (0.0-0.7); EOSINOPHILS % (AUTO) 4.8 %; HCT - HEMATOCRIT 33.4 % (37.0-47.0); HGB - HEMOGLOBIN 10.9 g/dL (12.0-16.0); LYMPHOCYTES # (AUTO) 1.9 10^3/uL (1.5-3.5); LYMPHOCYTES % (AUTO) 24.6 %; MEAN CORPUSCULAR HEMOGLOBIN 28.3 pg (27.0-31.0); MEAN CORPUSCULAR HGB CONC 32.6 g/dL (32.0-36.0); MEAN CORPUSCULAR VOLUME 86.8 fL (81.0-99.0); MEAN PLATELET VOLUME 10.4 fL (7.9-10.8); MONOCYTES # (AUTO) 0.6 10^3/uL (0.0-1.0); MONOCYTES % (AUTO) 8.1 %; NEUTROPHILS # (AUTO) 4.8 10^3/uL (1.5-6.6); PLT - PLATELET COUNT 209 10^3/uL (130-450); RED BLOOD COUNT 3.85 10^6/uL (4.20-5.40); RED CELL DISTRIBUTION WIDTH 14.8 % (12.0-15.0); WHITE BLOOD COUNT 7.8 x10^3/uL (4.8-10.8)
[2022-11-25 05:06] LABS: CALCIUM, IONIZED 1.13 mmol/L (1.15-1.33); VBG PH 7.426 (7.31-7.41)
[2022-11-25 05:07] LABS: PT - PROTHROMBIN TIME 11.3 secs (9.9-12.6)
[2022-11-25 05:14] LABS: ALBUMIN 3.2 g/dL (3.2-5.5); ALBUMIN/GLOBULIN RATIO 1.1 (1.0-2.2); BILIRUBIN,TOTAL 0.7 mg/dL (0.2-1.0); CALCIUM 8.4 mg/dL (8.5-10.3); CREATININE 0.7 mg/dL (0.4-1.0); MAGNESIUM 1.8 mg/dL (1.7-2.8); PARTIAL THROMBOPLASTIN TIME 25.9 secs (24.9-33.3); POTASSIUM 3.9 mmol/L (3.5-5.0); TOTAL PROTEIN 6.2 g/dL (6.7-8.2)
[2022-11-25] MEDS ORDERED: MAGNESIUM SULFATE 2 GRAM 2 GM/50 ML BAG IV ONE (05:54)
[2022-11-25] MEDS: ACETAMINOPHEN 1,000 MG/100 ML 1,000 MG/100 ML BAG IV PRN ×2 (08:21→14:40)
[2022-11-25] MEDS ORDERED: POTASSIUM PHOSPHATE 15 MMOL in SODIUM CHLORIDE 0.9% 250 ML IV ONE (09:00)
[2022-11-25] MEDS: FAMOTIDINE 20 MG/2 ML VIAL IVP SCH (09:08)
[2022-11-25] MEDS: ENOXAPARIN 40 MG/0.4 ML SYRINGE SUBQ SCH (09:09)
[2022-11-25] MEDS: SODIUM CHLORIDE FLUSH 0.9% 10 ML SYRINGE IVP PRN ×2 (09:19→21:08)
--- NOTE | 2022-11-25 10:43 | PROVIDER PROGRESS NOTE ---
Assessment/Plan - Problem List (1) Altered mental status Qualifiers: Altered mental status type: unspecified Qualified Code(s): R41.82 - Altered mental status, unspecified Assessment/Plan: RESOLVED She was obtunded yesterday, caused by intentional drug OD as asuicide attempt (see below). Head CT was neg. She was admitted to the ICU because of her obtundation, to watch her respiratory status and QT interval and cardiac rhythm. Today she is awake, can speak, gives me a detailed Hx. Plan: Continue to monitor with one-to-one observation for SI until cleared by SW If she passes a swallowing screen, she can be started on diet which can be and advanced (2) Bipolar disorder Her demeanor is engaging, but somewhat manic currently Plan: I will resume her Cymbalta, prn Hydroxyzine, Lamictal and Seroqul. (3) ADHD Her demeanor is engaging, but somewhat manic currently Plan: I will resume her Strrattera (4) Hypophosphatemia Plan: Will replete, follow K, Mg, PO4 (5) Elevated TSH Concern for uncontrolled hypothyroidism, with her TSH being 11.7, so her T4 was checked and it is low -normal at 0.8. Plan: I will not begin her on Synthroid replacement because it could promote judith, given her comorbidities of ADHD and Bipolar disorder. I will leave this to her PCP to start treatment and follow TFTs (6) Intentional drug OD At admission it was unclear which drug / meds she took, but UDS was positive for barbiturates and tricyclics. All her home meds were held while she was obtunded. Poison control spoke to nursing at least twice. There was a prolongation of her QT interval mildly. She had no arrhythmias. Plan: SW to see her, since she is now cleared from a medical standpoint (we have no SW available today, Saturday). (7) Suicide attempt She has a h/o 2 prior suicide attempts. Today she gives me a detailed Hx: Her and the boyfriend recently. The patient took the overdose of pills plus a bottle of alcohol. She does say it was a "cry for help" to get psychiatry help and help with her "mental health and her substance abuse history". When I asked her what substance she abuses she says she takes all her prescription medicines as prescribed except the Lamictal she herself increased the dose from 150 mg to 200 mg. Otherwise she occasionally uses cocaine but not recently, and she denies any use of any other illegal substances. Plan: She will need psychiatric social worker supervisor and psych evaluation, now that she is medically stable and alert (we have no SW available today, Saturday). (8) Lid lag As she is sitting and speaking, with somewhat manic body motions, I noticed her left upper eye lid had lid leg. I asked her how long she has had that. She maricel d she was not aware of it ever happening and did not notice any abnormality currently. The lid does not have any thickening like a stye. Head CT was normal on admission Plan: Potentially this could be left over from the recent obtundation, but we will plan to get brain imaging again with an MRI brain (today Saturday and we do not have MRI available until tomorrow, Saturday). - Current Meds Current Meds: Current Medications Generic Name Dose Route Start Last Admin Trade Name Freq PRN Reason Stop Dose Admin Enoxaparin Sodium 40 mg 11/24/22 09:00 11/25/22 09:09 Enoxaparin 40 Mg/0.4 Ml Syringe SUBQ 40 mg DAILY CARMELA Administration Famotidine 20 mg 11/24/22 09:00 11/25/22 09:08 Famotidine 20 Mg/2 Ml Vial IVP 20 mg BID CARMELA Administration Lactated Ringer's 1,000 mls @ 100 mls/hr 11/24/22 07:00 11/25/22 04:55 Lr IV 100 mls/hr .Q10H CARMELA Administration Acetaminophen 1,000 mg in 100 mls @ 400 mls/hr 11/24/22 16:24 11/25/22 08:41 Acetaminophen IV Infused Q6HR PRN Infusion Moderate Pain (Level 4-6) Potassium Phosphate 15 mmol/ 255 mls @ 63 mls/hr 11/25/22 09:00 11/25/22 09:09 Sodium Chloride IV 11/25/22 13:02 63 mls/hr ONCE ONE Administration Protocol Sodium Chloride 10 ml 11/24/22 09:00 11/24/22 20:02 Sodium Chloride Flush 0.9% 10 Ml Syringe IVP 10 ml 0100,0900,1700 CARMELA Administration Sodium Chloride 10 ml 11/24/22 06:46 11/25/22 09:19 Sodium Chloride Flush 0.9% 10 Ml Syringe IVP 10 ml PRN PRN Administration NEEDED PER PROVIDER ORDERS - Lab Result Fish Bone Diagrams: 11/25/22 04:25 11/25/22 04:25 - Additional Planning My Orders: My Active Orders 11/24/22 16:24 Acetaminophen 1,000 mg/100 ml [Acetaminophen] 1,000 mg in 100 ml IV Q6HR 11/25/22 08:37 NonViolent Restraint(s) Q24H 11/25/22 10:19 Swallow Screen - Nursing [RC] ONCE Subjective - Subjective Patient Reports: Feeling Better, Resting Comfortably Objective Vital Signs: Vital Signs - 24 hr 11/24/22 11/24/22 11/24/22 11:00 12:00 13:00 Temperature 37.1 C Heart Rate [ 99 104 H 102 H Monitoring electrodes] Respiratory 20 17 16 Rate Blood Pressure 113/79 110/59 L 110/69 [Right Brachial artery] O2 Saturation 98 97 97 11/24/22 11/24/22 11/24/22 14:00 14:11 15:00 Temperature Heart Rate [ 104 H 103 H 105 H Monitoring electrodes] Respiratory 20 25 H 24 Rate Blood Pressure 80/59 L 99/67 110/72 [Right Brachial artery] O2 Saturation 97 96 96 11/24/22 11/24/22 11/24/22 16:00 17:00 18:00 Temperature 37.9 C Heart Rate [ 102 H 106 H 97 Monitoring electrodes] Respiratory 23 21 18 Rate Blood Pressure 92/76 114/99 H 103/67 [Right Brachial artery] O2 Saturation 97 98 97 11/24/22 11/24/22 11/24/22 19:00 19:30 20:00 Temperature 36.9 C Heart Rate [ 104 H 91 Monitoring electrodes] Respiratory 28 H 28 H 20 Rate Blood Pressure 86/66 L 113/70 [Right Brachial artery] O2 Saturation 97 97 98 11/24/22 11/24/22 11/24/22 20:30 21:00 21:30 Temperature 36.9 C Heart Rate [ 92 Monitoring electrodes] Respiratory 20 21 21 Rate Blood Pressure 109/82 H [Right Brachial artery] O2 Saturation 98 96 96 11/24/22 11/24/22 11/25/22 22:00 23:00 00:00 Temperature 37.1 C Heart Rate [ 99 92 89 Monitoring electrodes] Respiratory 18 14 17 Rate Blood Pressure 115/74 119/95 H 91/73 [Right Brachial artery] O2 Saturation 96 96 98 11/25/22 11/25/22 11/25/22 00:30 01:00 02:00 Temperature 37.1 C Heart Rate [ 86 90 Monitoring electrodes] Respiratory 17 17 15 Rate Blood Pressure 105/66 108/78 [Right Brachial artery] O2 Saturation 98 98 98 11/25/22 11/25/22 11/25/22 03:00 03:30 04:00 Temperature 36.4 C L Heart Rate [ 84 81 Monitoring electrodes] Respiratory 15 15 18 Rate Blood Pressure 81/69 L 96/83 H [Right Brachial artery] O2 Saturation 98 98 98 11/25/22 11/25/22 11/25/22 05:00 06:00 06:30 Temperature 36.4 C L Heart Rate [ 87 83 Monitoring electrodes] Respiratory 18 16 16 Rate Blood Pressure 88/69 L 103/69 [Right Brachial artery] O2 Saturation 100 97 97 11/25/22 11/25/22 07:00 08:38 Temperature 37.1 C Heart Rate [ 85 82 Monitoring electrodes] Respiratory 17 17 Rate Blood Pressure 113/67 106/93 H [Right Brachial artery] O2 Saturation 95 96 Oxygen O2 Source Room air I&O (Last 24 Hrs): Intake and Output Totals x24h 11/23/22 11/24/22 11/25/22 23:59 23:59 23:59 Intake Total 2192.924 7817.000 Output Total 1685 2605 Balance -8.333 -1275.000 General: Alert, Oriented x3, Other (Obese WF) HEENT: Mucous membr. moist/pink, Other (L lid lag seen intermittently. Upper jaw edentulous.) Neuro: Alert, Other (L lid lag seen intermittently. Speech and body movements are manic.) Cardiovascular: Regular rate Respiratory: No respiratory distress Abdomen: Soft, Other (Obese) Extremities: No clubbing, No edema, No tenderness/swelling - Results Results: Laboratory Results WBC 7.8 x10^3/uL (4.8-10.8) 11/25/22 04:25 RBC 3.85 10^6/uL (4.20-5.40) L 11/25/22 04:25 Hgb 10.9 g/dL (12.0-16.0) L 11/25/22 04:25 Hct 33.4 % (37.0-47.0) L 11/25/22 04:25 MCV 86.8 fL (81.0-99.0) 11/25/22 04:25 MCH 28.3 pg (27.0-31.0) 11/25/22 04:25 MCHC 32.6 g/dL (32.0-36.0) 11/25/22 04:25 RDW 14.8 % (12.0-15.0) 11/25/22 04:25 Plt Count 209 10^3/uL (130-450) 11/25/22 04:25 MPV 10.4 fL (7.9-10.8) 11/25/22 04:25 Neut # (Auto) 4.8 10^3/uL (1.5-6.6) 11/25/22 04:25 Lymph # (Auto) 1.9 10^3/uL (1.5-3.5) 11/25/22 04:25 [place] # (Auto) 0.6 10^3/uL (0.0-1.0) 11/25/22 04:25 Eos # (Auto) 0.4 10^3/uL (0.0-0.7) 11/25/22 04:25 Baso # (Auto) 0.0 10^3/uL (0.0-0.1) 11/25/22 04:25 Absolute Nucleated RBC 0.00 x10^3/uL 11/25/22 04:25 Nucleated RBC % 0.0 /100WBC 11/25/22 04:25 PT 11.3 secs (9.9-12.6) 11/25/22 04:25 INR 1.0 (0.8-1.2) 11/25/22 04:25 APTT 25.9 secs (24.9-33.3) 11/25/22 04:25 VBG pH 7.426 (7.31-7.41) H 11/25/22 04:25 Ionized Calcium 1.13 mmol/L (1.15-1.33) L 11/25/22 04:25 Sodium 138 mmol/L (135-145) 11/25/22 04:25 Potassium 3.9 mmol/L (3.5-5.0) 11/25/22 04:25 Chloride 109 mmol/L (101-111) 11/25/22 04:25 Carbon Dioxide 23 mmol/L (21-32) 11/25/22 04:25 Anion Gap 6.0 (6-13) 11/25/22 04:25 BUN 6 mg/dL (6-20) 11/25/22 04:25 Creatinine 0.7 mg/dL (0.4-1.0) 11/25/22 04:25 Estimated GFR (MDRD) 91 (>89) 11/25/22 04:25 Glucose 96 mg/dL (70-100) 11/25/22 04:25 POC Whole Bld Glucose 93 mg/dL (70 - 100) 11/25/22 00:01 Estimat Average Glucose 105 mg/dL (70-100) H 11/23/22 23:18 Hemoglobin A1c % 5.3 % (4.27-6.07) 11/23/22 23:18 Calcium 8.4 mg/dL (8.5-10.3) L 11/25/22 04:25 Phosphorus 2.0 mg/dL (2.5-4.6) L 11/25/22 04:25 Magnesium 2.5 mg/dL (1.7-2.8) 11/25/22 08:59 Total Bilirubin 0.7 mg/dL (0.2-1.0) 11/25/22 04:25 AST 13 IU/L (10-42) 11/25/22 04:25 ALT 15 IU/L (10-60) 11/25/22 04:25 Alkaline Phosphatase 86 IU/L (42-121) 11/25/22 04:25 Ammonia 35.7 umol/L (7-35) H 11/24/22 04:39 Total Creatine Kinase 32 IU/L (22-269) 11/23/22 23:18 Troponin I High Sens < 2.3 ng/L (2.3-14.8) L 11/24/22 07:09 Total Protein 6.2 g/dL (6.7-8.2) L 11/25/22 04:25 Albumin 3.2 g/dL (3.2-5.5) 11/25/22 04:25 Globulin 3.0 g/dL (2.1-4.2) 11/25/22 04:25 Albumin/Globulin Ratio 1.1 (1.0-2.2) 11/25/22 04:25 Triglycerides 127 mg/dL (-149) 11/24/22 07:09 Cholesterol 210 mg/dL (-199) H 11/24/22 07:09 LDL Cholesterol, Calc 129 mg/dL (-129) 11/24/22 07:09 VLDL Cholesterol 25 mg/dL 11/24/22 07:09 HDL Cholesterol 56 mg/dL (60-) L 11/24/22 07:09 LDL/HDL Ratio 2.3 (<4.4) 11/24/22 07:09 Cholesterol/HDL Ratio 3.8 (<4.4) 11/24/22 07:09 Lipase 24 U/L (22-51) 11/23/22 23:18 TSH 11.70 uIU/mL (0.34-5.60) H 11/23/22 23:18 Free T4 0.80 ng/dL (0.58-1.64) 11/23/22 23:18 Urine Color YELLOW 11/23/22 23:24 Urine Clarity CLEAR (CLEAR) 11/23/22 23:24 Urine pH 6.0 PH (5.0-7.5) 11/23/22 23:24 Ur Specific [place] <=1.005 (1.002-1.030) 11/23/22 23:24 Urine Protein NEGATIVE mg/dL (NEGATIVE) 11/23/22 23:24 Urine Glucose (UA) NEGATIVE mg/dL (NEGATIVE) 11/23/22 23:24 Urine Ketones NEGATIVE mg/dL (NEGATIVE) 11/23/22 23:24 Urine Occult Blood NEGATIVE (NEGATIVE) 11/23/22 23:24 Urine Nitrite NEGATIVE (NEGATIVE) 11/23/22 23:24 Urine Bilirubin NEGATIVE (NEGATIVE) 11/23/22 23:24 Urine Urobilinogen 0.2 (NORMAL) E.U./dL (NORMAL) 11/23/22 23:24 Ur Leukocyte Esterase NEGATIVE (NEGATIVE) 11/23/22 23:24 Ur Microscopic Review NOT INDICATED 11/23/22 23:24 Urine Culture Comments NOT INDICATED 11/23/22 23:24 Urine HCG, Qual NEGATIVE 11/23/22 23:25 Nasal Screen MRSA (PCR) NEGATIVE (NEGATIVE) 11/24/22 09:00 Salicylates < 6.0 mg/dL 11/23/22 23:18 Urine Opiates Screen NEGATIVE (NEGATIVE) 11/23/22 23:25 Ur Oxycodone Screen NEGATIVE (NEGATIVE) 11/23/22 23:25 Urine Methadone Screen NEGATIVE (NEGATIVE) 11/23/22 23:25 Ur Propoxyphene Screen NEGATIVE (NEGATIVE) 11/23/22 23:25 Acetaminophen < 10 ug/mL (10-30) L 11/23/22 23:18 Ur Barbiturates Screen POSITIVE (NEGATIVE) H 11/23/22 23:25 Ur Tricyclics Screen POSITIVE (NEGATIVE) H 11/23/22 23:25 Ur Phencyclidine Scrn NEGATIVE (NEGATIVE) 11/23/22 23:25 Ur Amphetamine Screen NEGATIVE (NEGATIVE) 11/23/22 23:25 U Methamphetamines Scrn NEGATIVE (NEGATIVE) 11/23/22 23:25 U Benzodiazepines Scrn NEGATIVE (NEGATIVE) 11/23/22 23:25 Urine Cocaine Screen NEGATIVE (NEGATIVE) 11/23/22 23:25 U Cannabinoids Screen NEGATIVE (NEGATIVE) 11/23/22 23:25 Ethyl Alcohol 49.2 mg/dL 11/23/22 23:18 SARS-CoV-2 (PCR) NOT DETECTED 11/24/22 01:11
[2022-11-25] MEDS ORDERED: hydrOXYzine PAMOATE 25 MG CAPSULE PO PRN (13:00)
[2022-11-25] MEDS ORDERED: QUEtiapine 100 MG TABLET PO SCH ×2 (13:00→21:00)
[2022-11-25] MEDS: SODIUM CHLORIDE FLUSH 0.9% 10 ML SYRINGE IVP SCH ×2 (13:21→17:26)
[2022-11-25] MEDS ORDERED: GABAPENTIN 100 MG CAPSULE PO SCH (14:00)
[2022-11-25] MEDS: GABAPENTIN 100 MG CAPSULE PO SCH (14:50)
[2022-11-25] MEDS ORDERED: GABAPENTIN 300 MG CAPSULE PO SCH (21:00)
[2022-11-26] MEDS: SODIUM CHLORIDE FLUSH 0.9% 10 ML SYRINGE IVP SCH ×3 (00:39→17:47)
[2022-11-26] MEDS: ACETAMINOPHEN 325 MG TABLET PO PRN ×2 (08:26→15:33)
[2022-11-26] MEDS: GABAPENTIN 100 MG CAPSULE PO SCH ×2 (08:27→15:33)
[2022-11-26] MEDS: ENOXAPARIN 40 MG/0.4 ML SYRINGE SUBQ SCH (08:28)
[2022-11-26] MEDS ORDERED: lamoTRIgine 100 MG TABLET PO SCH (09:00)
[2022-11-26] MEDS ORDERED: DULoxetine 60 MG CAPSULE PO SCH (09:00)
[2022-11-26] MEDS ORDERED: ATOMOXETINE HCL 25 MG PO SCH (09:00)
[2022-11-26] MEDS ORDERED: BACITRACIN ZINC OINT 1 PACKET TOP PRN (13:02)
--- NOTE | 2022-11-26 14:40 | Discharge Plan ---
Discharge Plan Problem Reviewed?: Yes Disposition: 02 Transfer Acute Care Hosp Condition: Stable No Smoking: If you smoke, Please STOP! Call for help.
--- NOTE | 2022-11-26 14:41 | DISCHARGE SUMMARY ---
Discharge Summary Admit Date: 11/24/22 Discharge Date: 11/26/22 Discharging Provider: Dr Callie Robertson Primary Care Provider: Dr Mari Skinner Code Status: Attempt Resuscitation Condition at Discharge: Stable Discharge Disposition: 02 Transfer Acute Care Hosp Discharge Facility Name: [facility] History of Present Illness: This is a 42 y/o WF with obesity (BMI 37), Hx of 2 prior suicide attempts, ADHD, Bipolar disorder, who last night had texted to multiple family members that they will not need to worry about her anymore, and the paramedics were called, EMS said the text messages had content which indicated the patient intended to kill herself, and had already overdosed on hydroxyzine and quetiapine. EMS arrived on scene to find patient with GCS of 4, improving to 7 after she was given 1 mg narcan. There were no falls or seizures noted or reported. She was brought to the ER on the evening of 11/23/22. In the ED she was mostly obtunded but intermittently pulling at things. Poison control was contacted by ER staff and they advised that she be monitored on telemetry due to possibly developing QT prolongation. She will be admitted to the ICU for intentional overdose management (Inpatient admitted on 11/24/22). - HOSPITAL COURSE Hospital Course: (1) Altered mental status, unspecified - R41.82 She presented obtunded, caused by intentional drug OD as a suicide attempt. Head CT was neg. She was admitted to the ICU because of her obtundation, to watch her respiratory status and QT interval and cardiac rhythm. There was trivial QT prolongation on a second EKG but no arrhythmias. She required soft upper extremity restraints for a day, and awoke on the following day, passed a swallowing screen, was started on diet and her meds. (2) Bipolar disorder After she awoke, her demeanor was engaging, but somewhat manic. We resumed her Cymbalta, prn Hydroxyzine, Lamictal and Seroqul. (3) ADHD I resumed her Strrattera (4) Hypophosphatemia Replaced and improved (5) Elevated TSH Concern for uncontrolled hypothyroidism, with her TSH being 11.7, so her T4 was checked and it is low -normal at 0.8. I did not begin her on Synthroid replacement because it could promote judith, given her comorbidities of ADHD and Bipolar disorder. I will leave this to her PCP to start treatment and follow TFTs. (6) Intentional drug OD At admission it was unclear which drug / meds she took, but UDS was positive for barbiturates and tricyclics. All her home meds were held while she was obtunded. Poison control spoke to nursing at least twice. There was a prolongation of her QT interval mildly. She had no arrhythmias. Once she awoke and was clared medically, SW saw her in consult. She was still voicing suicidal ideation. She was transferred for Psychiatry and Substance Abuse management to [facility] in [place], in stable condition. (7) Suicide attempt She has a h/o 2 prior suicide attempts. When awake, she reported that she and her boyfriend recently. The patient took the overdose of pills plus a bottle of alcohol. She does say it was a "cry for help" to get psychiatry help and help with her "mental health and her substance abuse history", which she admitted was cocaine abuse. (8) Lid lag As she was awakening she had a left upper eye lid leg. Head CT was normal on admission. She said she was not aware of it ever happening before and did not notice it. The lid lag resolved by the next day. - ALLERGIES Allergies/Adverse Reactions: Allergies Allergy/AdvReac Type Severity Reaction Status Date / Time amoxicillin AdvReac Intermediate diarrhea Verified 11/23/22 23:20 nortriptyline AdvReac Unknown Verified 11/23/22 23:20 - MEDICATIONS Home Medications: Ambulatory Orders Medication Instructions Recorded Confirmed DULoxetine [Cymbalta] 60 mg PO DAILY 08/28/22 11/24/22 Gabapentin [Neurontin] 300 - 900 mg PO TID 08/28/22 11/24/22 Pregabalin [Lyrica] 75 mg PO BID 08/28/22 11/24/22 QUEtiapine [SEROquel] 100 mg PO Q6H 08/28/22 11/24/22 Trazodone HCl 100 mg PO HS 08/28/22 11/24/22 lamoTRIgine [LaMICtal] 150 mg PO DAILY 08/28/22 11/24/22 Atomoxetine HCl [Strattera] 1 cap PO DAILY 11/24/22 11/24/22 Butalb/Acetam/Caff 50/325/40 1 - 2 tab PO Q6HR PRN 11/24/22 11/24/22 [Fioricet] Celecoxib [Celebrex] 1 cap PO BID 11/24/22 11/24/22 hydrOXYzine HCL [Hydroxyzine HCl] 1 tab PO QID PRN 11/24/22 11/24/22 - PHYSICAL EXAM AT DISCHARGE General Appearance: positive: No acute distress, Alert Eyes Bilateral: positive: Normal inspection, EOMI ENT: positive: ENT inspection nml, No signs of dehydration, Other (Edentulous upper jaw (has dentures)) Neck: positive: Nml inspection, No JVD Respiratory: positive: No respiratory distress, Breath sounds nml Cardiovascular: positive: Regular rate & rhythm, No murmur Abdomen: positive: Non-tender, Nml bowel sounds, No distention, Other (Obese) Skin: positive: Warm, Dry Extremities: positive: Non-tender, No pedal edema Neurologic/Psychiatric: positive: Oriented x3, Other (Resting hand tremor. Manic in speech and motions.) - LABS Result Diagrams: 11/25/22 04:25 11/25/22 15:37 - DIAGNOSTIC IMAGING Diagnostic Imaging Results: Final report reviewed - FOLLOW UP Follow Up: This will be determined after her hospitalization at [facility]. - TIME SPENT Time Spent in Discharge (Minutes): 30
[2022-11-26 19:21] VITALS: BP 115/77
== END 2022-11-26 20:46 | disposition short-term general hospital (02) | DRG 917 ==
LOC: EDUNIT# → ED 22:57 → ICU 11-24 06:46 → OBSVTOIN 11-24 10:26
PROVIDERS: ADMIT Student in an Organized Health Care Education/Training Program; ATTEND Internal Medicine
DX: T43.012A Poisoning by tricyclic antidepressants, intentional self-harm, initial encounter (principal); G92.8 Other toxic encephalopathy; R45.851 Suicidal ideations; Z91.51 Personal history of suicidal behavior; Z78.1 Physical restraint status; F31.9 Bipolar disorder, unspecified; F90.9 Attention-deficit hyperactivity disorder, unspecified type; E83.39 Other disorders of phosphorus metabolism; H02.534 Eyelid retraction left upper eyelid; E87.6 Hypokalemia; R94.6 Abnormal results of thyroid function studies; R00.0 Tachycardia, unspecified
CPT/HCPCS: 36415; 51702; 70450; 71045; 80053; 80061; 80306; 80307; 80320; 80329; 81003; 81025; 82140; 82330; 82550; 83036; 83690; 83735; 84100; 84132; 84439; 84443; 84484; 85025; 85610; 85730; 87150; 87635; 93005; 96361; 96372; 96374; 99285; A9270; G0378; J0131; J1650; J7120; 81001; 83721; 87086